=== PATIENT | female | born 1960 | race Caucasian/White ===

== ENCOUNTER → 2016-12-29 | Outpatient (CLI) | payer MEDICARE, MEDICAID ==
[~2016-12-29] MED LIST: /ADVA50050; /ADVA50050 INH; /MOXI40TA; /MOXI40TA OR; /PANT40TA; /TIOT18INH; /TIOT18INH INH; /WARF25TA PO; ACET65TA; ACET65TA OR; ALBU83IN IN; ALBUTEROL INH; ASPI325T OR; ATOR1TAB21 PO; CARD120T6 OR; CHAN0.5P6 PO; DEXI60CA PO; DULO30CA PO; EFFE150C PO; EFFE75CA75; GUAIFENESIN SYRUP; HYDR-3713 PO; HYDR7.5T33 PO; LIDO5DIS TD; LIPI20TA OR; LOPR50TA OR; LOPR50TA PO; LYRI75CA PO; METH-107 PO; METH5TAB2; METH5TAB2 PO; NEUR300C PO; NEUR800T; NEUR800T OR; NEUR800T PO; PAXI10TA OR; PENN1.5S2 TD; PRED10TA2; PRED10TA2 OR; PRED20TA; PRED20TA OR; PRED5TAB OR; PROAAER INH; PROV90AE; THERGRAN; TOPI25TA2 PO; TOPI50TA OR; TRAM50TA2 OR; TRAM50TA2 PO; TYLE325T5 PO; VARE1TA; VENL75TA2 OR; WELL150T PO; oxygen
--- NOTE | 2016-12-31 00:21 | ECWPNPC ---
PATIENT NAME: ARTHUR ALSTON : 1960 GENDER: FEMALE VISIT DATE: 12/29/2016 DISCHARGE DATE: 12/29/16 1126 VISIT LOCKED DATE TIME: PHYSICIAN: AMAN MENDOZA RESOURCE: AMAN MENDOZA REASON FOR APPOINTMENT 1. NECK HISTORY OF PRESENT ILLNESS HISTORY OF PRESENT ILLNESS: PAIN THE PATIENT DESCRIBES THE PAIN... FALL RISK SCREENING: SCREENING :NO FALLS IN THE PAST YEAR TODAY'S VISIT: NOTES: RATES PAIN TODAY 8/10. IS NOTING NEW PAIN TODAY IN LOW BACK BUT THIS STARTED AFTER A 1 WEEK BOUGHT OF THE FLU. CONTINUES TO REPORT USUAL PAIN FROM BASE OF NECK TO SHOULDERS AND DOWN BOTH ARMS TO THE FINGERS. DESCRIBES PAIN CONSTANT, ACHING, BURNING, TENDER AND THROBBING. CURRENT MEDICATIONS TAKING [facility] TEST 1 INHALATION DAILY, NOTES: [id number] TAKING ADVAIR DISKUS 500-50 MCG/DOSE AEROSOL POWDER BREATH ACTIVATED 1 PUFF INHALATION TWICE A DAY, NOTES: 07-21-16599 TAKING DEXILANT 60 MG CAPSULE DELAYED RELEASE 1 CAPSULE ORALLY ONCE A DAY, NOTES: 07-21-16599 TAKING PRIMIDONE 50 MG TABLET ORALLY TWICE DAILY, NOTES: 07-20-162099 TAKING TOPAMAX 50 MG TABLET 1 1/2 TABLETS ORALLY TWICE A DAY, NOTES: 07-21-16599 TAKING PAXIL 20 MG TABLET 1 TABLET ORALLY ONCE A DAY, NOTES: 07-20-162099 TAKING DULOXETINE HCL 60 MG CAP 1 CAP(S) ORALLY ONCE A DAY TAKING GABAPENTIN 400 MG CAPSULE 1 CAPSULE ORALLY THREE TIMES A DAY, NOTES: 07-21-161199 TAKING TRAMADOL HCL 50 MG TABLET 1 -2 TABLETS ORALLY EVERY 8 HRS PRN PAIN MDD=6 TAKING LIPITOR 20 MG TABLET 1 TABLET ORALLY ONCE A DAY MEDICATION LIST REVIEWED AND RECONCILED WITH THE PATIENT PAST MEDICAL HISTORY COPD CHRONIC OBSTRUCTIVE BRONCHITIS, EMPHYSEMA, DR TREJO CHRONIC O2 3 LPM- TORIN ON 11/09/14 SHOWED FEV1/FVC 58% CHRONIC NECK PAIN - PAIN CLINIC DEPRESSION HYPERLIPIDEMIA HYPERTENSION, 07/05 EKG NSR GERD STRESS URINARY INCONTINENCE H/O ABN MAMMO 07/06, BX 09/05 NEG, AGUERO DUE FOR REPEAT MAMMO EMANUEL DEP 08/02 ECHO, NL EXCEPT MILD RVH ALLERGIES N.K.D.A. SOCIAL HISTORY GENERAL: TOBACCO USE ARE YOU A:NONSMOKER LEARNING 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 NEW PATIENT PAIN DIARY TODAY'S VISITNOTES FROM 0-10, WHAT LEVEL IS YOUR PAIN TODAY?0 PAIN CLINIC PFS, CLERGY, PUBLIC HEALTH REFERRALS PFS REFERRAL NEEDED?NO CLERGY REFERRAL NEEDED?NO PUBLIC HEALTH REFERRAL NEEDED?NO WAS THE PROVIDER NOTIFIED OF ANY PERTINENT INFO?NO PFS REFERRAL NEEDED?NO CLERGY REFERRAL NEEDED?NO PUBLIC HEALTH REFERRAL NEEDED?NO WAS THE PROVIDER NOTIFIED OF ANY PERTINENT INFO?NO REVIEW OF SYSTEMS CONSTITUTIONAL: ANY CHANGE IN YOUR MEDICAL CONDITION? YES PT HAD THE FLU MID NOVEMBER, SYMPTOMS NOW RESOLVED . CHILLS NO . FEVER NO . INFECTION: DO YOU HAVE NEW INFECTIONS? NO . DO YOU HAVE HISTORY OF MRSA? NO . MUSCULOSKELETAL: ANY NEW PATTERNS OF PAIN OR NUMBNESS? YES PT REPORTS INCREASED INTENSITY OF LOW BACK PAIN STARTING ABOUT TWO WEEKS AGO. PT STATES SHE HAD THE FLU PRIOR TO THIS, AND IT RESOLVED, HER BACK PAIN INCREASED. . GASTROENTEROLOGY: ANY NEW CHANGE IN BOWEL CONTROL? NO . GENITOURINARY: ANY NEW CHANGE IN BLADDER CONTROL? NO . IS THERE A CHANCE YOU COULD BE ? NO . HEMATOLOGY/LYMPH: DO YOU TAKE ANY BLOOD THINNERS? (FOR EXAMPLE- COUMADIN, PLAVIX, AGGRENOX, PLATEL, PRADAXA, OR XARELTO) NO . WHEN WAS YOUR LAST DOSE? DATE: TIME: . NEUROLOGY: HAVE YOU FALLEN IN THE PAST 6 MONTHS? NO . ANY NEW EXTREMITY NUMBNESS OR WEAKNESS? NO . CARDIOLOGY: DO YOU HAVE A PACEMAKER OR DEFIBRILLATOR? NO . RESPIRATORY: HAVE YOU BEEN SICK IN THE PAST WEEK? NO . FEVER NO . FLU LIKE SYMPTOMS? NO . CHRONIC LUNG DISEASES ON CONSTANT O2 AT 3-4 LITERS NASAL CANNULA . COUGH NO . INTEGUMENTARY: DO YOU HAVE ANY RASHES OR OPEN SORES? NO . ALLERGIC/IMMUNO: ARE YOU ALLERGIC TO SHELLFISH OR IV DYE? NO . ANY NEW ALLERGIES? NO . PSYCHIATRIC: DO YOU HAVE THOUGHTS OF HURTING YOURSELF OR SOMEONE ELSE? NO . ARE YOU ABUSED, NEGLECTED, OR IN AN UNSAFE ENVIRONMENT? NO . ENDOCRINOLOGY: ARE YOU DIABETIC? NO . OTHER: DO YOU NEED ANY PRESCRIPTIONS? NO . IF YES, PLEASE LIST: ____ . ANY NEW PROBLEMS WITH YOUR MEDICATIONS? NO . WHEN DID YOU LAST EAT? ____ . WHEN DID YOU LAST DRINK? ____ . WHAT DID YOU LAST DRINK? ____ . NAME OF PERSON DRIVING YOU HOME? ____ . DO YOU HAVE ANY OTHER QUESTIONS OR CONCERNS NO . REVIEWED BY: PROVIDER: AMAN VALADEZ . VITAL SIGNS WT 152.4 LBS, HT 64", BMI 26.16 INDEX, BP 112/67 MM HG, HR 115 /MIN, RR 20 /MIN, TEMP 96.8 F, OXYGEN SAT % 3L/93%, SAFE IN ENV? (Y/N) YES, NA INITIALS TL 1051, REVIEWED BY: VI GRADY, CISCO Burrows AWARE- TL. EXAMINATION PAIN CLINIC NEUROLOGICAL EXAM: OTHER SENSATION HYPERSENSITIVENO REFLEXES PATELLARYES 4/4 W/CLONUS RIGHT, 2/4 LEFT - NO CLONUS REFLEXES BICEPSYES 3/4 RIGHT, 2/4 LEFT REFLEXES BRACHIORADIALISYES REFLEXES ACHILLESYES CLONUS PLANTAR RESPONSE SENSATION DECEASEDNO RIGHT UPPER EXTREMITY BALANCE/ROMBERG SENSATION NORMALNO SKIN: WARM, DRY, NO VISIBLE RASHES OR LESIONS. CARDIAC: HEART RATE REGULAR, S1-S2, NO MURMURS. RESPIRATORY: WHEEZES, RALES, RONCHI HEARD SCATTERED IN ALL LOBES. EXTREMITIES: NO EDEMA. FULL ROM. ASSESSMENTS CERVICAL DISC DISORDER OF CERVICOTHORACIC REGION - M50.93 (PRIMARY) CERVICAL DISC DISORDER WITH RADICULOPATHY OF CERVICOTHORACIC REGION - M50.13 DEGENERATIVE CERVICAL DISC - M50.30 TREATMENT CERVICAL DISC DISORDER OF CERVICOTHORACIC REGION START GABAPENTIN TABLET, 600 MG, 1 TABLET, ORALLY, THREE TIMES A DAY, 30 DAY(S), 90, REFILLS 5 NOTES: FALLS CARE PLAN: 1. RECOMMEND REMOVING ALL THROW RUGS. 2. RECOMMEND NIGHT LIGHTS 3. RECOMMEND WEARING RUBBER SOLED SHOES AND TO NOT GO BAREFOOT. 4.. ADVISED TO CHANGE POSITION SLOWLY FROM SUPINE TO STANDING TO AVOID DIZZINESS. 5. ADVISED TO USE ASSISTIVE DEVICE SUCH CANE OR WALKER 6. USE LIFELINE SERVICES OR KEEP PORTABLE PHONE READILY AVAILABLE. CLINICAL NOTES: ISTOP REGISTRY REVIEWED AND DEMNOSTRATES COMPLLIANCE. BRINGS IN MEDICATIONS WHICH IS APPROPRIATE FOR WHAT WAS DISPENSED. RECENT URINE TOXICOLOGY REVIEWED. NO UNAUTHORIZED MEDICATIONS. NO ILLICIT SUBSTANCES AND PRESCRIBED MEDICATIONS WERE PRESENT. PROCEDURE CODES FA211 ESTABILISHED PATIENT [facility] CHARGE G8783 BP SCR PRFRM RCMDD DEFIND SCR INTVL G8730 PAIN ASSESS POS TOOL F/U PLAN DOC 3016F PT SCRND UNHLTHY [place] USE 1124F ACP DISCUSS-NO DSCNMKR DOCD 1036F TOBACCO NON-USER 0518F FALL PLAN OF CARE DOCD G8427 DOC MEDS VERIFIED W/PT OR RE G8420 BMI<30 AND >=22 CALC & DOCU 3288F FALL RISK ASSESSMENT DOCD DISPOSITION & COMMUNICATION FOLLOW UP 3 MONTHS ELECTRONICALLY SIGNED BY LINN CRUZ ON 12/30/2016 AT 06:44 PM EST DISCLAIMER : THIS IS A VISIT SUMMARY EXTRACTED FROM THE [employer] CHART. IT IS NOT A COPY OF THE [employer] PROGRESS NOTE. MTDD
== END ==
LOC: M PAIN 10:20
PROVIDERS: ATTEND Nurse Practitioner Family
DX: Z09 Encounter for follow-up examination after completed treatment for conditions other than malignant neoplasm (principal); G89.29 Other chronic pain; M50.13 Cervical disc disorder with radiculopathy, cervicothoracic region; M50.30 Other cervical disc degeneration, unspecified cervical region; J44.9 Chronic obstructive pulmonary disease, unspecified; F32.9 Major depressive disorder, single episode, unspecified; E78.5 Hyperlipidemia, unspecified; I10 Essential (primary) hypertension; K21.9 Gastro-esophageal reflux disease without esophagitis; N39.3 Stress incontinence (female) (male); Z79.51 Long term (current) use of inhaled steroids; Z79.891 Long term (current) use of opiate analgesic; Z79.899 Other long term (current) drug therapy

== ENCOUNTER → 2017-03-31 | Outpatient (CLI) | payer MEDICARE, MEDICAID ==
[~2017-03-31] MED LIST changes: +ALBU83IN INH; -DEXI60CA PO; +DEXI60CA2 PO; +GABA-283 PO; +INCR1INH IN; -METH-107 PO; +METH1TAB40 PO; +OXYC1SOL3 PO; +PAXI40TA10 PO
--- NOTE | 2017-04-20 02:19 | ECWPNPC ---
PATIENT NAME: ARTHUR ALSTON : 1960 GENDER: FEMALE VISIT DATE: 03/31/2017 DISCHARGE DATE: 03/31/17 1131 VISIT LOCKED DATE TIME: PHYSICIAN: AMAN MENDOZA RESOURCE: AMAN MENDOZA REASON FOR APPOINTMENT 1. NECK HISTORY OF PRESENT ILLNESS HISTORY OF PRESENT ILLNESS: PAIN THE PATIENT DESCRIBES THE PAIN... FALL RISK SCREENING: SCREENING :NO FALLS IN THE PAST YEAR TODAY'S VISIT: NOTES: IS HAVING MORE TROUBLE MANAGING NECK PAIN. IS HAVING TROUBLE WITH "TWITCHING" AND WILL BE SEEING DR CLAYTON. AINRADIATES DOWN BOTH ARMS. DOES NOT WISH TO DO ANY INJECTIONS TO THE AREA.RATES PAIN TODAY 7/10. DESCRIBES PAIN CONSTANT, BURNING, ACHING, TENDER , THROBBING AND SORE. CURRENT MEDICATIONS TAKING [facility] TEST 1 INHALATION DAILY TAKING ADVAIR DISKUS 500-50 MCG/DOSE AEROSOL POWDER BREATH ACTIVATED 1 PUFF INHALATION TWICE A DAY TAKING DEXILANT 60 MG CAPSULE DELAYED RELEASE 1 CAPSULE ORALLY ONCE A DAY TAKING PRIMIDONE 50 MG TABLET ORALLY TWICE DAILY TAKING TOPAMAX 50 MG TABLET 1 1/2 TABLETS ORALLY TWICE A DAY TAKING GABAPENTIN 400 MG CAPSULE 1 CAPSULE ORALLY THREE TIMES A DAY TAKING GABAPENTIN 600 MG TABLET 1 TABLET ORALLY THREE TIMES A DAY TAKING PAXIL 20 MG TABLET 1 TABLET IN THE MORNING ORALLY ONCE A DAY TAKING LIPITOR 20 MG TABLET 1 TABLET ORALLY ONCE A DAY TAKING DULOXETINE HCL 60 MG CAP 1 CAP(S) ORALLY ONCE A DAY TAKING TRAMADOL HCL 50 MG TABLET 1 -2 TABLETS ORALLY EVERY 8 HRS PRN PAIN MDD=6 MEDICATION LIST REVIEWED AND RECONCILED WITH THE PATIENT PAST MEDICAL HISTORY COPD CHRONIC OBSTRUCTIVE BRONCHITIS, EMPHYSEMA, DR TREJO CHRONIC O2 3 LPM- TORIN ON 11/09/14 SHOWED FEV1/FVC 58% CHRONIC NECK PAIN - PAIN CLINIC DEPRESSION HYPERLIPIDEMIA HYPERTENSION, 07/05 EKG NSR GERD STRESS URINARY INCONTINENCE H/O ABN MAMMO 07/06, BX 09/05 NEG, AGUERO DUE FOR REPEAT MAMMO EMANUEL DEP 08/02 ECHO, NL EXCEPT MILD RVH ALLERGIES N.K.D.A. REVIEW OF SYSTEMS REVIEWED BY: PROVIDER: AMAN VALADEZ . CONSTITUTIONAL: ANY CHANGE IN YOUR MEDICAL CONDITION? NO . CHILLS NO . FEVER NO . INFECTION: DO YOU HAVE NEW INFECTIONS? NO . DO YOU HAVE HISTORY OF MRSA? NO . MUSCULOSKELETAL: ANY NEW PATTERNS OF PAIN OR NUMBNESS? NO . GASTROENTEROLOGY: ANY NEW CHANGE IN BOWEL CONTROL? NO . GENITOURINARY: ANY NEW CHANGE IN BLADDER CONTROL? NO . IS THERE A CHANCE YOU COULD BE ? NO . HEMATOLOGY/LYMPH: DO YOU TAKE ANY BLOOD THINNERS? (FOR EXAMPLE- COUMADIN, PLAVIX, AGGRENOX, PLATEL, PRADAXA, OR XARELTO) NO . WHEN WAS YOUR LAST DOSE? DATE: TIME: . NEUROLOGY: HAVE YOU FALLEN IN THE PAST 6 MONTHS? NO . ANY NEW EXTREMITY NUMBNESS OR WEAKNESS? NO . CARDIOLOGY: DO YOU HAVE A PACEMAKER OR DEFIBRILLATOR? NO . CHEST PAIN PATIENT DENIES . RESPIRATORY: HAVE YOU BEEN SICK IN THE PAST WEEK? NO . FEVER NO . FLU LIKE SYMPTOMS? NO . CHRONIC LUNG DISEASES REMAINS ON CHRONIC OXYGEN AT 3L/NC . DO YOU USE ANY TYPE OF TOBACCO (SMOKE, SMOKELESS, CHEW)? NO . COUGH NO . INTEGUMENTARY: DO YOU HAVE ANY RASHES OR OPEN SORES? NO . ALLERGIC/IMMUNO: ARE YOU ALLERGIC TO SHELLFISH OR IV DYE? NO . ANY NEW ALLERGIES? NO . PSYCHIATRIC: DO YOU HAVE THOUGHTS OF HURTING YOURSELF OR SOMEONE ELSE? NO . ARE YOU ABUSED, NEGLECTED, OR IN AN UNSAFE ENVIRONMENT? NO . ENDOCRINOLOGY: ARE YOU DIABETIC? NO . OTHER: DO YOU NEED ANY PRESCRIPTIONS? NO . IF YES, PLEASE LIST: ____ . ANY NEW PROBLEMS WITH YOUR MEDICATIONS? NO . WHEN DID YOU LAST EAT? ____ . WHEN DID YOU LAST DRINK? ____ . WHAT DID YOU LAST DRINK? ____ . NAME OF PERSON DRIVING YOU HOME? ____ . DO YOU HAVE ANY OTHER QUESTIONS OR CONCERNS NO . VITAL SIGNS WT 158 LBS, HT 64", BMI 27.12 INDEX, BP 111/74 MM HG, HR 89 /MIN, RR 20 /MIN, TEMP 97.2 F, OXYGEN SAT % 95, REVIEWED BY: NL. EXAMINATION GENERAL EXAMINATION: GENERAL APPEARANCE:COLOR IS PALE. OXYGEN IN PLACE. PSYCHALERT , ORIENTED X 3 . LUNGS:NO WHEEZES, RHONCHI, RALES, DECREASED AIRFLOW, DYPSNEIC ON EXERTION. HEART:HEART RATE REGULAR, RAPID. MUSCULOSKELETAL:DECREASED CERVICAL ROTATION, TRIGGER POINTS AND TIGHT FIBROUS BANDS OVER CERVICAL PARAPSINOUS MUSCLES AND ACROSS TRAPEZIUS MUSCLES. DECREASED CLIENT DEVELOPMENT CONSULTANT STRENGTH BILATERAL UPPER EXTREMITIES.. EXTREMITIES:TRACE EDEMA BILATERAL LOWER EXTREMITIES. ASSESSMENTS CERVICAL DISC DISORDER OF CERVICOTHORACIC REGION - M50.93 (PRIMARY) CERVICAL DISC DISORDER WITH RADICULOPATHY OF CERVICOTHORACIC REGION - M50.13 DEGENERATIVE CERVICAL DISC - M50.30 TREATMENT CERVICAL DISC DISORDER OF CERVICOTHORACIC REGION START OXYCODONE HCL TABLET, 5 MG, 1 TABLET, ORALLY, EVERY 8-12 HOURS PRN PAIN MDD=2, 30 DAY(S), 60, REFILLS 0 NOTES: STOP TRAMADOL.UPDATE NARCOTIC AGREEMENT TODAY. PROCEDURE CODES FA211 ESTABILISHED PATIENT [facility] CHARGE G8730 PAIN ASSESS POS TOOL F/U PLAN DOC G8427 DOC MEDS VERIFIED W/PT OR RE DISPOSITION & COMMUNICATION FOLLOW UP 26-28 DAYS (REASON: MED MANAGEMENT) ELECTRONICALLY SIGNED BY LINN CRUZ ON 04/19/2017 AT 01:27 PM EDT DISCLAIMER : THIS IS A VISIT SUMMARY EXTRACTED FROM THE [employer] CHART. IT IS NOT A COPY OF THE [employer] PROGRESS NOTE. ELVIA
== END ==
LOC: M PAIN 10:40
PROVIDERS: ATTEND Nurse Practitioner Family
DX: M50.13 Cervical disc disorder with radiculopathy, cervicothoracic region (principal); M50.30 Other cervical disc degeneration, unspecified cervical region; Z79.891 Long term (current) use of opiate analgesic; Z79.899 Other long term (current) drug therapy

== ENCOUNTER → 2017-04-04 | Outpatient (CLI) | payer MEDICARE, MEDICAID ==
[~2017-04-04] MED LIST changes: -ALBU83IN INH; +DEXI60CA PO; -DEXI60CA2 PO; -GABA-283 PO; -INCR1INH IN; +METH-107 PO; -METH1TAB40 PO; -OXYC1SOL3 PO; -PAXI40TA10 PO
--- NOTE | 2017-04-04 15:55 | REP ---
CHEST, TWO VIEWS: HISTORY: COPD. COMPARISON: 07/14/2013. The lungs are hyperinflated. An increase in interstitial markings is present in the lungs. The heart is normal in size. The pulmonary vasculature is normal in appearance. The bony structure is intact. IMPRESSION: COPD. Signed by Rad Haley MD 04/04/2017 04:03 P
== END ==
LOC: M ADAMS 13:15
PROVIDERS: ATTEND Internal Medicine Pulmonary Disease
DX: J44.1 Chronic obstructive pulmonary disease with (acute) exacerbation (principal)

== ENCOUNTER → 2017-06-29 | Outpatient (REF) | payer MEDICARE, MEDICAID ==
[~2017-06-29] MED LIST changes: +ALBU83IN INH; -DEXI60CA PO; +DEXI60CA2 PO; +GABA-283 PO; +INCR1INH IN; -METH-107 PO; +METH1TAB40 PO; +OXYC1SOL3 PO; +PAXI40TA10 PO
[2017-06-29 14:36] LABS: BASO % 0.6 % (0.0-1.0); EOS # 0.2 K/mm3 (0.0-0.50); EOS % 2.4 % (0.0-3.0); LARGE UNSTAINED CELL # 0.1 K/mm3 (0.0-0.4); LARGE UNSTAINED CELL % 1.5 % (0.0-4.0); LYMPH % 28.6 % (24.0-44.0); MEAN CORPUSCULAR HEMOGLOBIN 27.4 pg (27.0-33.0); MEAN CORPUSCULAR HGB CONC 30.9 g/dl (32.0-36.5); MEAN CORPUSCULAR VOLUME 88.8 fl (80.0-96.0); MONO # 0.3 K/mm3 (0.0-0.8); NEUTROPHILS # 4.2 K/mm3 (1.8-7.7); PLATELET COUNT, AUTOMATED 258 k/mm3 (150-450); RED CELL DISTRIBUTION WIDTH 14.4 % (11.5-14.5); WHITE BLOOD COUNT 6.8 K/mm3 (4.0-10.0)
[2017-06-29 14:48] LABS: ALBUMIN 3.7 GM/DL (3.2-5.2); ALBUMIN/GLOBULIN RATIO 1.03 (1.00-1.93); ALKALINE PHOSPHATASE 111 U/L (45-117); ALT/SGPT 18 U/L (12-78); ANION GAP 12 MEQ/L (8-16); AST/SGOT 15 U/L (15-37); BILIRUBIN,TOTAL 0.3 MG/DL (0.2-1.0); BLOOD UREA NITROGEN 15 MG/DL (7-18); CALCIUM LEVEL 8.8 MG/DL (8.5-10.1); CARBON DIOXIDE LEVEL 27 MEQ/L (21-32); CHLORIDE LEVEL 105 MEQ/L (98-107); CHOLESTEROL LEVEL 179 MG/DL (<200); CREATININE FOR GFR 0.79 MG/DL (0.55-1.02); GLOMERULAR FILTRATION RATE > 60.0 (>51); GLUCOSE, FASTING 83 MG/DL (70-105); POTASSIUM SERUM 4.2 MEQ/L (3.5-5.1); SODIUM LEVEL 144 MEQ/L (136-145); TOTAL PROTEIN 7.3 GM/DL (6.4-8.2); TRIGLYCERIDES LEVEL 98 MG/DL (<150)
== END ==
LOC: M SFHCADAM 11:22
PROVIDERS: ATTEND Physician Assistant Medical
DX: R07.9 Chest pain, unspecified (principal); E78.4 Other hyperlipidemia; M54.2 Cervicalgia; I10 Essential (primary) hypertension; F32.9 Major depressive disorder, single episode, unspecified; J44.9 Chronic obstructive pulmonary disease, unspecified; J96.11 Chronic respiratory failure with hypoxia; K21.9 Gastro-esophageal reflux disease without esophagitis; F17.200 Nicotine dependence, unspecified, uncomplicated; R92.0 Mammographic microcalcification found on diagnostic imaging of breast; Z23 Encounter for immunization; Z79.891 Long term (current) use of opiate analgesic; Z79.899 Other long term (current) drug therapy
CPT/HCPCS: 80053; 80061; 82306; 83036; 84443; 85025; 90732; 93005; G0009

== ENCOUNTER → 2017-07-14 | Outpatient (CLI) | payer MEDICARE, MEDICAID ==
--- NOTE | 2017-08-12 01:01 | ECWPNPC ---
PATIENT NAME: ARTHUR ALSTON : 1960 GENDER: FEMALE VISIT DATE: 07/14/2017 DISCHARGE DATE: 07/14/17 1642 VISIT LOCKED DATE TIME: PHYSICIAN: AMAN MENDOZA RESOURCE: AMAN MENDOZA REASON FOR APPOINTMENT 1. NECK HISTORY OF PRESENT ILLNESS HISTORY OF PRESENT ILLNESS: PAIN THE PATIENT DESCRIBES THE PAIN... FALL RISK SCREENING: SCREENING :NO FALLS IN THE PAST YEAR TODAY'S VISIT: NOTES: RATES PAIN LEVEL TODAY 05/01. DESCRIBES PAIN CONSTANT, ACHING, BURNING TENDER, THROBBING AND SORE. PAIN IS CENERED AT BASE OF NECK AND RADIATES ACROSS THE SHOULDERS AND DOWN BITH ARMS TO THE LEVEL OF THE WRISTS. CURRENT MEDICATIONS TAKING ADVAIR DISKUS 500-50 MCG/DOSE AEROSOL POWDER BREATH ACTIVATED 1 PUFF INHALATION TWICE A DAY TAKING DEXILANT 60 MG CAPSULE DELAYED RELEASE 1 CAPSULE ORALLY ONCE A DAY TAKING TOPAMAX 50 MG TABLET 1 1/2 TABLETS ORALLY TWICE A DAY TAKING GABAPENTIN 600 MG TABLET 1 TABLET ORALLY THREE TIMES A DAY TAKING DULOXETINE HCL 60 MG CAP 1 CAP(S) ORALLY ONCE A DAY TAKING OXYCODONE HCL 5 MG TABLET 1 TABLET ORALLY EVERY 8-12 HOURS PRN PAIN MDD=2 TAKING PAXIL 40 MG TABLET 1 TABLET IN THE MORNING ORALLY ONCE A DAY TAKING DRISDOL 00213 UNIT CAPSULE 1 CAPSULE ORALLY ONCE WEEKLY TAKING ALBUTEROL SULFATE 0.63 MG/3ML NEBULIZATION SOLUTION 3 ML NEEDED INHALATION EVERY 6 HRS NOT-TAKING LIPITOR 20 MG TABLET 1 TABLET ORALLY ONCE A DAY DISCONTINUED TRAMADOL HCL 50 MG TABLET 1 -2 TABLETS ORALLY EVERY 8 HRS PRN PAIN MDD=6 DISCONTINUED PAXIL 20 MG TABLET 1 TABLET IN THE MORNING ORALLY ONCE A DAY MEDICATION LIST REVIEWED AND RECONCILED WITH THE PATIENT PAST MEDICAL HISTORY COPD CHRONIC OBSTRUCTIVE BRONCHITIS, EMPHYSEMA, DR TREJO CHRONIC O2 3 LPM CHRONIC NECK PAIN - PAIN CLINIC DEPRESSION HYPERLIPIDEMIA HYPERTENSION, 07/05 EKG NSR GERD STRESS URINARY INCONTINENCE H/O ABN MAMMO 07/06, BX 09/05 NEG, AGUERO DUE FOR REPEAT MAMMO EMANUEL DEP 08/02 ECHO, NL EXCEPT MILD RVH PINEAL CYST- NEURO, MRI 05/08 WITHOUT CHANGE. 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 SOCIAL HISTORY GENERAL: TOBACCO USE ARE YOU A:CURRENT SMOKER TRYING TO QUIT, TO SPEAK WITH HER PRIMARY ABOUT STARTING CHANTIX HOW MANY CIGARETTES A DAY DO YOU SMOKE?6-10 HOW SOON AFTER YOU WAKE UP DO YOU SMOKE YOUR FIRST CIGARETTE?6-30 MIN HOW OFTEN DO YOU SMOKE CIGARETTES?EVERY DAY PATIENT COUNSELED ON THE DANGERS OF TOBACCO USE AND URGED TO QUIT:07/14/2017 ARE YOU INTERESTED IN QUITTING?READY TO QUIT PREVIOUS QUIT ATTEMPTS?YES, WITHIN THE LAST 6 MONTHS. COUNSELED THE PATIENT ON TOBACCO USE, CESSATION [id number]/22/2017 LUNG CANCER SCREENING SMOKING STATUS:CURRENT SMOKER BMI CARE GOAL FOLLOW-UP ABOVE NORMAL BMI FOLLOW-UPDIETARY MANAGEMENT EDUCATION, GUIDANCE, AND COUNSELING ALCOHOL SCREENING DID YOU HAVE A DRINK CONTAINING ALCOHOL IN THE PAST YEAR?YES HOW OFTEN DID YOU HAVE A DRINK CONTAINING ALCOHOL IN THE PAST YEAR?MONTHLY OR LESS (1 POINT) HOW MANY DRINKS DID YOU HAVE ON A TYPICAL DAY WHEN YOU WERE DRINKING IN THE PAST YEAR?1 OR 2 (0 POINTS) HOW OFTEN DID YOU HAVE SIX OR MORE DRINKS ON ONE OCCASION IN THE PAST YEAR?NEVER (0 POINTS) POINTS1 INTERPRETATIONNEGATIVE RECREATIONAL DRUG USE DRUG USE?NO CAFFEINE CAFFEINE USE?YES COFFEE DAILY SEXUAL HX HAD SEX IN THE LAST 12 MONTHS (VAGINAL, ORAL, OR ANAL)?NO HIV / HEP-C SCREENING HIV TEST OFFERED TO PATIENT:YES DATE OFFERED:06/29/2017 TEST ACCEPTED:NO REASON:PATIENT DECLINED HEP-C TEST OFFERED TO PATIENT:YES DATE OFFERED:06/29/2017 TEST ACCEPTED:NO REASON:PATIENT DECLINED OCCUPATION: DISABLED. DIET: REGULAR. EXERCISE: NO REGULAR EXERCISE. MARITAL STATUS: . 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 NEW PATIENT PAIN DIARY TODAY'S VISITNOTES FROM 0-10, WHAT LEVEL IS YOUR PAIN TODAY?0 PAIN CLINIC PFS, CLERGY, PUBLIC HEALTH REFERRALS PFS REFERRAL NEEDED?NO CLERGY REFERRAL NEEDED?NO PUBLIC HEALTH REFERRAL NEEDED?NO WAS THE PROVIDER NOTIFIED OF ANY PERTINENT INFO?NO HAS THE PATIENT BEEN EDUCATED REGARDING HIS/HER PLAN OF CARE?YES HAS THE PATIENT BEEN EDUCATED REGARDING PAIN, THE RISK FOR PAIN, THE IMPORTANCE OF EFFECTIVE PAIN MANAGEMENT, AND THE PAIN ASSESSMENT PROCESS?YES REVIEW OF SYSTEMS REVIEWED BY: PROVIDER: AMAN VALADEZ . CONSTITUTIONAL: ANY CHANGE IN YOUR MEDICAL CONDITION? NO . CHILLS NO . FEVER NO . INFECTION: DO YOU HAVE NEW INFECTIONS? NO . DO YOU HAVE HISTORY OF MRSA? NO . MUSCULOSKELETAL: ANY NEW PATTERNS OF PAIN OR NUMBNESS? NO . GASTROENTEROLOGY: ANY NEW CHANGE IN BOWEL CONTROL? NO . GENITOURINARY: ANY NEW CHANGE IN BLADDER CONTROL? NO . IS THERE A CHANCE YOU COULD BE ? NO . HEMATOLOGY/LYMPH: DO YOU TAKE ANY BLOOD THINNERS? (FOR EXAMPLE- COUMADIN, PLAVIX, AGGRENOX, PLATEL, PRADAXA, OR XARELTO) NO . WHEN WAS YOUR LAST DOSE? DATE: TIME: . NEUROLOGY: HAVE YOU FALLEN IN THE PAST 6 MONTHS? NO . ANY NEW EXTREMITY NUMBNESS OR WEAKNESS? NO . CARDIOLOGY: DO YOU HAVE A PACEMAKER OR DEFIBRILLATOR? NO . RESPIRATORY: HAVE YOU BEEN SICK IN THE PAST WEEK? NO . FEVER NO . FLU LIKE SYMPTOMS? NO . CHRONIC LUNG DISEASES SIG COPD - REMAINS ON CONTINIOUS OXYGEN AT 3L/NC . COUGH NO . INTEGUMENTARY: DO YOU HAVE ANY RASHES OR OPEN SORES? NO . ALLERGIC/IMMUNO: ARE YOU ALLERGIC TO SHELLFISH OR IV DYE? NO . ANY NEW ALLERGIES? NO . PSYCHIATRIC: DO YOU HAVE THOUGHTS OF HURTING YOURSELF OR SOMEONE ELSE? NO . ARE YOU ABUSED, NEGLECTED, OR IN AN UNSAFE ENVIRONMENT? NO . ENDOCRINOLOGY: ARE YOU DIABETIC? NO . OTHER: DO YOU NEED ANY PRESCRIPTIONS? YES . IF YES, PLEASE LIST: ____GABAPENTIN 600 MG, OXYCODONE . ANY NEW PROBLEMS WITH YOUR MEDICATIONS? NO . WHEN DID YOU LAST EAT? ____ . WHEN DID YOU LAST DRINK? ____ . WHAT DID YOU LAST DRINK? ____ . NAME OF PERSON DRIVING YOU HOME? ____ . DO YOU HAVE ANY OTHER QUESTIONS OR CONCERNS NO . VITAL SIGNS WT 150.8 LBS, HT 64", BMI 25.88 INDEX, BP 106/66 MM HG, HR 95 /MIN, RR 18 /MIN, TEMP 98.4 F, OXYGEN SAT % 95%, NA INITIALS CM 1538. EXAMINATION GENERAL EXAMINATION: PSYCHALERT , ORIENTED X 3 . LUNGS:DECREASED AIR ENTRY AT BASES, NO WHEEZES RALES OR RHONCHI. SHORT OF BREATH WITH EXERTION. MUSCULOSKELETAL:VERY LIMITIED ROM OF NECK WITH FLEXION, EXT AND ROTATION. EXQ TENDERNESS OVER POTTERY DECORATOR . ASSESSMENTS CERVICAL DISC DISORDER OF CERVICOTHORACIC REGION - M50.93 (PRIMARY) CERVICAL DISC DISORDER WITH RADICULOPATHY OF CERVICOTHORACIC REGION - M50.13 CERVICALGIA - M54.2 TREATMENT CERVICAL DISC DISORDER OF CERVICOTHORACIC REGION REFILL OXYCODONE HCL TABLET, 5 MG, 1 TABLET, ORALLY, EVERY 8-12 HOURS PRN PAIN MDD=2, 30 DAY(S), 60, REFILLS 0 REFILL GABAPENTIN TABLET, 600 MG, 1 TABLET, ORALLY, THREE TIMES A DAY, 30 DAY(S), 90, REFILLS 5 NOTES: UTOX TODAY. CLINICAL NOTES: ISTOP REGISTRY REVIEWED AND DEMNOSTRATES COMPLLIANCE. (REF # [id number]) BRINGS IN MEDICATIONS WHICH IS APPROPRIATE FOR WHAT WAS DISPENSED. RECENT URINE TOXICOLOGY REVIEWED. NO UNAUTHORIZED MEDICATIONS. NO ILLICIT SUBSTANCES AND PRESCRIBED MEDICATIONS WERE PRESENT. PROCEDURE CODES FA211 ESTABILISHED PATIENT [facility] CHARGE DISPOSITION & COMMUNICATION FOLLOW UP 7 WEEKS (REASON: NECK PAIN) ELECTRONICALLY SIGNED BY LINN CRUZ ON 08/11/2017 AT 09:03 AM EDT DISCLAIMER : THIS IS A VISIT SUMMARY EXTRACTED FROM THE [employer] CHART. IT IS NOT A COPY OF THE [employer] PROGRESS NOTE. ELVIA
== END ==
LOC: M PAIN 14:45
PROVIDERS: ATTEND Nurse Practitioner Family
DX: G89.29 Other chronic pain (principal); M50.13 Cervical disc disorder with radiculopathy, cervicothoracic region; J44.9 Chronic obstructive pulmonary disease, unspecified; E78.4 Other hyperlipidemia; I10 Essential (primary) hypertension; F32.9 Major depressive disorder, single episode, unspecified; K21.9 Gastro-esophageal reflux disease without esophagitis; F17.210 Nicotine dependence, cigarettes, uncomplicated; E55.9 Vitamin D deficiency, unspecified; Z79.891 Long term (current) use of opiate analgesic; Z79.899 Other long term (current) drug therapy

== ENCOUNTER → 2017-09-01 | Outpatient (CLI) | payer MEDICARE, MEDICAID | LOC: M PAIN 09:15 | PROVIDERS: ATTEND Nurse Practitioner Family | DX: G89.29 Other chronic pain (principal); M50.13 Cervical disc disorder with radiculopathy, cervicothoracic region; J44.9 Chronic obstructive pulmonary disease, unspecified; E78.4 Other hyperlipidemia; I10 Essential (primary) hypertension; F32.9 Major depressive disorder, single episode, unspecified; K21.9 Gastro-esophageal reflux disease without esophagitis; F17.210 Nicotine dependence, cigarettes, uncomplicated; E55.9 Vitamin D deficiency, unspecified; Z79.891 Long term (current) use of opiate analgesic; Z79.899 Other long term (current) drug therapy ==

== ENCOUNTER → 2017-10-25 | Outpatient (CLI) | payer MEDICARE, MEDICAID | LOC: M PAIN 09:30 | DX: M50.93 Cervical disc disorder, unspecified, cervicothoracic region (principal); J44.9 Chronic obstructive pulmonary disease, unspecified; E78.5 Hyperlipidemia, unspecified; I10 Essential (primary) hypertension; F32.9 Major depressive disorder, single episode, unspecified; K21.9 Gastro-esophageal reflux disease without esophagitis; Z79.891 Long term (current) use of opiate analgesic; Z79.899 Other long term (current) drug therapy | CPT/HCPCS: G0463 ==

== ENCOUNTER → 2017-12-25 | Outpatient (CLI) | payer MEDICARE, MEDICAID | LOC: M PAIN 08:30 | DX: M50.93 Cervical disc disorder, unspecified, cervicothoracic region (principal); J44.9 Chronic obstructive pulmonary disease, unspecified; E78.5 Hyperlipidemia, unspecified; I10 Essential (primary) hypertension; F17.210 Nicotine dependence, cigarettes, uncomplicated; Z79.891 Long term (current) use of opiate analgesic; Z79.899 Other long term (current) drug therapy | CPT/HCPCS: G0463 ==

== ENCOUNTER → 2018-03-27 | Outpatient (CLI) | payer MEDICARE, MEDICAID | LOC: M PAIN 08:30 | DX: M50.93 Cervical disc disorder, unspecified, cervicothoracic region (principal); J44.9 Chronic obstructive pulmonary disease, unspecified; F32.9 Major depressive disorder, single episode, unspecified; E78.5 Hyperlipidemia, unspecified; I10 Essential (primary) hypertension; G25.0 Essential tremor; G43.909 Migraine, unspecified, not intractable, without status migrainosus; Z79.891 Long term (current) use of opiate analgesic; Z79.51 Long term (current) use of inhaled steroids; Z79.899 Other long term (current) drug therapy; Z96.652 Presence of left artificial knee joint; Z87.891 Personal history of nicotine dependence | CPT/HCPCS: G0463 ==

== ENCOUNTER → 2018-06-27 | Outpatient (CLI) | payer MEDICARE, MEDICAID | LOC: M PAIN 09:30 | DX: M50.93 Cervical disc disorder, unspecified, cervicothoracic region (principal); J44.9 Chronic obstructive pulmonary disease, unspecified; F32.9 Major depressive disorder, single episode, unspecified; E78.5 Hyperlipidemia, unspecified; I10 Essential (primary) hypertension; G43.909 Migraine, unspecified, not intractable, without status migrainosus; G25.0 Essential tremor; Z79.51 Long term (current) use of inhaled steroids; Z79.891 Long term (current) use of opiate analgesic; Z79.899 Other long term (current) drug therapy; Z96.651 Presence of right artificial knee joint; Z87.891 Personal history of nicotine dependence | CPT/HCPCS: G0463 ==

== ENCOUNTER → 2018-07-24 | Outpatient (CLI) | payer MEDICARE, MEDICAID | LOC: M RAD 09:41 | DX: Z12.2 Encounter for screening for malignant neoplasm of respiratory organs (principal); Z87.891 Personal history of nicotine dependence; J47.9 Bronchiectasis, uncomplicated; R91.1 Solitary pulmonary nodule | CPT/HCPCS: G0297 ==

== ENCOUNTER → 2018-08-24 | Outpatient (CLI) | payer MEDICARE | LOC: M RAD 11:46 | DX: K59.00 Constipation, unspecified (principal) | CPT/HCPCS: 74021 ==

== ENCOUNTER → 2018-09-07 | Outpatient (CLI) | payer MEDICARE ==
[~2018-09-07] MED LIST changes: -/ADVA50050; -/ADVA50050 INH; -/MOXI40TA; -/MOXI40TA OR; -/PANT40TA; -/TIOT18INH; -/TIOT18INH INH; -/WARF25TA PO; -ACET65TA; -ACET65TA OR; -ALBU83IN IN; -ALBU83IN INH; -ALBUTEROL INH; -ASPI325T OR; -ATOR1TAB21 PO; -CARD120T6 OR; -CHAN0.5P6 PO; -DEXI60CA2 PO; -DULO30CA PO; -EFFE150C PO; -EFFE75CA75; -GABA-283 PO; +GASTROGRAFIN SOLUTION 30ML (Q9963) As Ordered; -GUAIFENESIN SYRUP; -HYDR-3713 PO; -HYDR7.5T33 PO; -INCR1INH IN; +ISOVUE-370 76% 100ML VIAL (Q9967) As Ordered; -LIDO5DIS TD; -LIPI20TA OR; -LOPR50TA OR; -LOPR50TA PO; -LYRI75CA PO; -METH1TAB40 PO; -METH5TAB2; -METH5TAB2 PO; -NEUR300C PO; -NEUR800T; -NEUR800T OR; -NEUR800T PO; -OXYC1SOL3 PO; -PAXI10TA OR; -PAXI40TA10 PO; -PENN1.5S2 TD; -PRED10TA2; -PRED10TA2 OR; -PRED20TA; -PRED20TA OR; -PRED5TAB OR; -PROAAER INH; -PROV90AE; -THERGRAN; -TOPI25TA2 PO; -TOPI50TA OR; -TRAM50TA2 OR; -TRAM50TA2 PO; -TYLE325T5 PO; -VARE1TA; -VENL75TA2 OR; -WELL150T PO; -oxygen
== END ==
LOC: M RAD 15:00
DX: R14.0 Abdominal distension (gaseous) (principal); R10.31 Right lower quadrant pain; K59.00 Constipation, unspecified; N20.0 Calculus of kidney
CPT/HCPCS: Q9963

== ENCOUNTER → 2018-09-15 | Outpatient (REF) | payer MEDICARE, MEDICAID ==
[2018-09-15 17:44] LABS: ALBUMIN 3.5 GM/DL (3.2-5.2); ALBUMIN/GLOBULIN RATIO 0.92 (1.00-1.93); ALKALINE PHOSPHATASE 115 U/L (45-117); ALT/SGPT 24 U/L (12-78); ANION GAP 8 MEQ/L (8-16); AST/SGOT 15 U/L (7-37); BILIRUBIN,TOTAL 0.3 MG/DL (0.2-1.0); BLOOD UREA NITROGEN 15 MG/DL (7-18); CALCIUM LEVEL 8.8 MG/DL (8.5-10.1); CARBON DIOXIDE LEVEL 29 MEQ/L (21-32); CHLORIDE LEVEL 102 MEQ/L (98-107); CHOLESTEROL LEVEL 195 MG/DL (<200); CHOLESTEROL RISK RATIO 2.096 (<5); CREATININE FOR GFR 0.86 MG/DL (0.55-1.30); FREE T4 0.99 NG/DL (0.76-1.46); GLOMERULAR FILTRATION RATE > 60.0 (>51); GLUCOSE, FASTING 102 MG/DL (70-100); HDL CHOLESTEROL 93 MG/DL (>40); LDL CHOLESTEROL 89 MG/DL (<100); NON-HDL-C 102 MG/DL; SODIUM LEVEL 139 MEQ/L (136-145); TOTAL PROTEIN 7.3 GM/DL (6.4-8.2); TRIGLYCERIDES LEVEL 63 MG/DL (<150)
[2018-09-15 17:49] LABS: BASO % 0.4 % (0.0-1.0); EOS # 0.3 10^3/uL (0.0-0.50); EOS % 2.6 % (0.0-3.0); HEMATOCRIT 35.9 % (36.0-47.0); HEMOGLOBIN 10.8 g/dl (12.0-15.5); IMMATURE GRANULOCYTE % 0.6 % (0-3.0); LYMPH # 3.1 10^3/uL (1.5-4.5); LYMPH % 32.1 % (24.0-44.0); MEAN CORPUSCULAR HEMOGLOBIN 25.9 pg (27.0-33.0); MEAN CORPUSCULAR HGB CONC 30.1 g/dl (32.0-36.5); MEAN CORPUSCULAR VOLUME 86.1 fl (80.0-96.0); MONO # 0.7 10^3/uL (0.0-0.8); MONO % 6.9 % (0.0-5.0); NEUTROPHILS # 5.4 10^3/uL (1.8-7.7); NEUTROPHILS % 57.4 % (36.0-66.0); PLATELET COUNT, AUTOMATED 325 10^3/uL (150-450); RED BLOOD COUNT 4.17 10^6/uL (4.00-5.40); RED CELL DISTRIBUTION WIDTH 15.4 % (11.5-14.5); WHITE BLOOD COUNT 9.5 10^3/uL (4.0-10.0)
== END ==
LOC: M SFHCADAM 11:33
DX: E78.49 Other hyperlipidemia (principal); I10 Essential (primary) hypertension; E55.9 Vitamin D deficiency, unspecified
CPT/HCPCS: 84443

== ENCOUNTER → 2018-09-17 | Outpatient (REF) | payer MEDICARE, MEDICAID ==
[2018-09-17 16:14] LABS: HEMATOCRIT 38.4 % (36.0-47.0); HEMOGLOBIN 11.4 g/dl (12.0-15.5); MEAN CORPUSCULAR HGB CONC 29.7 g/dl (32.0-36.5); MEAN CORPUSCULAR VOLUME 87.5 fl (80.0-96.0); PLATELET COUNT, AUTOMATED 366 10^3/uL (150-450); RED BLOOD COUNT 4.39 10^6/uL (4.00-5.40); RED CELL DISTRIBUTION WIDTH 15.3 % (11.5-14.5); WHITE BLOOD COUNT 9.4 10^3/uL (4.0-10.0)
[2018-09-17 16:27] LABS: ESTIMATED AVERAGE GLUCOSE 140 MG/DL (60-110); HEMOGLOBIN A1c 6.5 %
[2018-09-17 16:37] LABS: FERRITIN 5 NG/ML (8-252); IRON (FE) 32 UG/DL (50-170); PERCENT SATURATION 7.4 % (13.2-45.0); TOTAL IRON BINDING CAPACITY 435 UG/DL (250-450)
[2018-09-17 16:47] LABS: VITAMIN B12 LEVEL 547 PG/ML
[2018-09-17 16:48] LABS: FOLATE > 24.0 NG/ML
== END ==
LOC: M SFHCADAM 15:10
DX: D64.9 Anemia, unspecified (principal); R73.01 Impaired fasting glucose
CPT/HCPCS: 82746

== ENCOUNTER → 2018-10-30 | Outpatient (CLI) | payer MEDICARE, MEDICAID ==
[~2018-10-30] MED LIST changes: +/ADVA50050; +/ADVA50050 INH; +/MOXI40TA; +/MOXI40TA OR; +/PANT40TA; +/TIOT18INH; +/TIOT18INH INH; +/WARF25TA PO; +ACET65TA; +ACET65TA OR; +ALBU83IN IN; +ALBU83IN INH; +ALBUTEROL INH; +ASPI325T OR; +ATOR1TAB21 PO; +AZIT500T2 PO; +CARD120T6 OR; +CEFD1CAP8 PO; +CHAN0.5P6 PO; +CHAN1PAK13 PO; +DEXI60CA2 PO; +DULO30CA PO; +EFFE150C PO; +EFFE75CA75; +GABA-845 PO; +GABA600T4 PO; -GASTROGRAFIN SOLUTION 30ML (Q9963) As Ordered; +GUAIFENESIN SYRUP; +HYDR-3713 PO; +HYDR7.5T33 PO; +INCR1INH IN; +INCR1INH INH; -ISOVUE-370 76% 100ML VIAL (Q9967) As Ordered; +LEVO25TA5 PO; +LIDO5DIS TD; +LINZ145C PO; +LIPI20TA OR; +LOPR50TA OR; +LOPR50TA PO; +LYRI75CA PO; +MELO15TA28 PO; +METH1TAB40 PO; +METH5TAB2; +METH5TAB2 PO; +NEUR300C PO; +NEUR800T; +NEUR800T OR; +NEUR800T PO; +OXYC-517 PO; +OXYC1SOL3 PO; +PARO40TA2 PO; +PAXI10TA OR; +PAXI40TA10 PO; +PENN1.5S2 TD; +PRED10TA2; +PRED10TA2 OR; +PRED20TA; +PRED20TA OR; +PRED5TAB OR; +PROAAER INH; +PROV90AE; +THERGRAN; +TIZA2TA PO; +TOPI100T9 PO; +TOPI25TA2 PO; +TOPI50TA OR; +TRAM50TA2 OR; +TRAM50TA2 PO; +TYLE325T5 PO; +VARE1TA; +VENL75TA2 OR; +WELL150T PO; +oxygen
--- NOTE | 2018-11-19 01:27 | ECWPNPC ---
PATIENT NAME: ARTHUR ALSTON : 1960 GENDER: FEMALE VISIT DATE: 10/30/2018 DISCHARGE DATE: 10/30/18 1512 VISIT LOCKED DATE TIME: PHYSICIAN: HARSH RICHTER RESOURCE: HARSH RICHTER REASON FOR APPOINTMENT 1. SW PT, MED MAN NECK PAIN HISTORY OF PRESENT ILLNESS HISTORY OF PRESENT ILLNESS: HERE FOR F/U OF CHRONIC NECK PAIN.HAS BEEN FOLLOWED AT OUR PAIN CLINIC FOR SEVERAL YEARS.ON CHRONIC MEDICATION TO INCIUDE OXYCODONE 5MG BID ,GABAPENTIN ,TIZANIDINE AND MOBIC.FINDS CURRENT MEDICATION EFFECTIVE AT REDUCING PAIN AND KEEPING HER COMFORTABLE.RATING PAIN VAS 8/10. PAIN THE PATIENT DESCRIBES THE PAIN... 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 PATIENT ON 3L OXY-GO-POC TAKING GABAPENTIN 600 MG TABLET 1 TABLET ORALLY THREE TIMES A DAY TAKING TIZANIDINE HCL 2 MG TABLET 1 TABLET NEEDED ORALLY BEFORE BEDTIME TAKING MELOXICAM 15 MG TABLET 1 TABLET ORALLY ONCE A DAY TAKING PAROXETINE HCL 40 MG TABLET TAKE ONE TABLET BY MOUTH EVERY MORNING TAKING CHANTIX CONTINUING MONTH DIANELYS 1 MG TABLET 1 TABLET ORALLY TWICE A DAY TAKING LIPITOR 20 MG TABLET 1 TABLET ORALLY ONCE A DAY TAKING DULOXETINE HCL 60 MG CAP 1 CAP(S) ORALLY ONCE A DAY TAKING SYNTHROID 25 MCG TABLET 1 TABLET ON AN EMPTY STOMACH IN THE MORNING ORALLY ONCE A DAY TAKING FERROUS SULFATE 325 (65 FE) MG TABLET 1 TABLET ORALLY ONCE A DAY TAKING OXYCODONE HCL 5 MG TABLET 1 TABLET ORALLY EVERY 8-12 HOURS PRN PAIN MDD=2 TAKING LINZESS 145 MCG CAPSULES 1 CAPSUL P.O. DAILY NOT-TAKING DRISDOL 63455 UNIT CAPSULE 1 CAPSULE ORALLY ONCE WEEKLY NOT-TAKING CHANTIX STARTING MONTH DIANELYS 0.5 MG X 11 & 1 MG X 42 TABLET DIRECTED ORALLY TWICE DAILY MEDICATION LIST REVIEWED AND RECONCILED WITH THE PATIENT PAST MEDICAL HISTORY COPD CHRONIC OBSTRUCTIVE BRONCHITIS, EMPHYSEMA, DR TREJO CHRONIC O2 3 LPM CHRONIC NECK PAIN - PAIN CLINIC DEPRESSION HYPERLIPIDEMIA HYPERTENSION, 07/05 EKG NSR GERD STRESS URINARY INCONTINENCE H/O ABN MAMMO 07/06, BX 09/05 NEG, AGUERO DUE FOR REPEAT MAMMO EMANUEL DEP 08/02 ECHO, NL EXCEPT MILD RVH PINEAL CYST- NEURO, MRI 05/08 WITHOUT CHANGE. 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 SURGICAL HISTORY CERVICAL SPINE FUSION - WITH RODS AND BONE GRAFT. 1997 LEFT TOTAL KNEE REPLACEMENT- NCOG 07/05 TUBAL LIGATION COLONOSCOPY 08/05 POOR PREP, REPEAT 10/05, SUBOPTIMAL PREP, REPEAT IN 1 YEAR, NBIH 08/05, 10/05 FAMILY HISTORY FATHER: , DIAGNOSED WITH OTHER MOTHER: ALIVE, DIAGNOSED WITH CANCER PATERNAL GRAND FATHER: PATERNAL GRAND MOTHER: MATERNAL GRAND FATHER: MATERNAL GRAND MOTHER: 2 BROTHER(S) , 1 SISTER(S) - HEALTHY. 2 SON(S) , 1 DAUGHTER(S) . FATHER: CIRROHSIS OF THE LIVERMOTHER: COLON CA, HAS A COLOSTOMY BAGBROTHER: HTNSON: AT 23. SOCIAL HISTORY GENERAL: TOBACCO USE ARE YOU A:FORMER SMOKER HAS QUIT > 1 YEAR, REMAINS ON CHANTIX HOW LONG HAS IT BEEN SINCE YOU LAST SMOKED?1-5 YEARS LUNG CANCER SCREENING SMOKING STATUS:FORMER SMOKER BMI CARE GOAL FOLLOW-UP ABOVE NORMAL BMI FOLLOW-UPDIETARY MANAGEMENT EDUCATION, GUIDANCE, AND COUNSELING ALCOHOL SCREENING DID YOU HAVE A DRINK CONTAINING ALCOHOL IN THE PAST YEAR?YES HOW OFTEN DID YOU HAVE SIX OR MORE DRINKS ON ONE OCCASION IN THE PAST YEAR?NEVER (0 POINTS) HOW MANY DRINKS DID YOU HAVE ON A TYPICAL DAY WHEN YOU WERE DRINKING IN THE PAST YEAR?1 OR 2 (0 POINTS) HOW OFTEN DID YOU HAVE A DRINK CONTAINING ALCOHOL IN THE PAST YEAR?MONTHLY OR LESS (1 POINT) POINTS1 INTERPRETATIONNEGATIVE RECREATIONAL DRUG USE DRUG USE?NO CAFFEINE CAFFEINE USE?YES COFFEE DAILY SEXUAL HX HAD SEX IN THE LAST 12 MONTHS (VAGINAL, ORAL, OR ANAL)?NO HIV / HEP-C SCREENING HIV TEST OFFERED TO PATIENT:YES DATE OFFERED:06/29/2017 TEST ACCEPTED:NO HEP-C TEST OFFERED TO PATIENT:YES DATE OFFERED:06/29/2017 REASON:PATIENT DECLINED TEST ACCEPTED:NO REASON:PATIENT DECLINED ZOROASTRIANISM [id number] NONE LANGUAGE LANGUAGES SPOKEN:[place] EDUCATION LEVEL OF EDUCATION:FINISHED HIGH SCHOOL LEARNING 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 OCCUPATION: DISABLED. DIET: REGULAR. EXERCISE: NO REGULAR EXERCISE. MARITAL STATUS: . NEW PATIENT PAIN DIARY TODAY'S VISIT NOTES, FROM 0-10, WHAT LEVEL IS YOUR PAIN TODAY? 0. PAIN CLINIC PFS, CLERGY, PUBLIC HEALTH REFERRALS PFS REFERRAL NEEDED?NO CLERGY REFERRAL NEEDED?NO PUBLIC HEALTH REFERRAL NEEDED?NO WAS THE PROVIDER NOTIFIED OF ANY PERTINENT INFO?NO HAS THE PATIENT BEEN EDUCATED REGARDING HIS/HER PLAN OF CARE?YES HAS THE PATIENT BEEN EDUCATED REGARDING PAIN, THE RISK FOR PAIN, THE IMPORTANCE OF EFFECTIVE PAIN MANAGEMENT, AND THE PAIN ASSESSMENT PROCESS?YES ADVANCE DIRECTIVE ADVANCE DIRECTIVE DISCUSSED WITH PATIENT:YES PT HAS NO ADVANCED DIRECTIVES, DECLINES INFORMATION OR ASSISTANCE AT THIS TIME 12/25/2017 0900 REVIEWED LAS03/27/18 0902 REVIEWED BVREVIEWED WITH PT 06/27/2018 0930 LASREVIEWED WITH PT 10/30/18 1445 LAS. HOSPITALIZATION/MAJOR DIAGNOSTIC PROCEDURE L KNEE REPLACEMENT 07/05 VAGINAL DELIVERIES PNEUMONIA CERVICAL SPINE FUSION 1997 ATYPICAL CP 08/02 ACUTE RESP FAILURE 03/03 REVIEW OF SYSTEMS REVIEWED BY: PROVIDER: HARSH VALADEZ . CONSTITUTIONAL: ANY CHANGE IN YOUR MEDICAL CONDITION? YES HYPOTHYROID, STARTED ON SYNTHROID AND ANEMIC , STARTED ON IRON AT LAST PRIMARY VISIT, TO SEE PRIMARY NEXT WEEK . CHILLS NO . FEVER NO . INFECTION: DO YOU HAVE NEW INFECTIONS? NO . DO YOU HAVE HISTORY OF MRSA? NO . MUSCULOSKELETAL: ANY NEW PATTERNS OF PAIN OR NUMBNESS? NO . GASTROENTEROLOGY: ANY NEW CHANGE IN BOWEL CONTROL? NO . GENITOURINARY: ANY NEW CHANGE IN BLADDER CONTROL? NO . IS THERE A CHANCE YOU COULD BE ? NO . HEMATOLOGY/LYMPH: DO YOU TAKE ANY BLOOD THINNERS? (FOR EXAMPLE- COUMADIN, PLAVIX, AGGRENOX, PLATEL, PRADAXA, OR XARELTO) NO . WHEN WAS YOUR LAST DOSE? DATE: TIME: . NEUROLOGY: HAVE YOU FALLEN IN THE PAST 6 MONTHS? NO . ANY NEW EXTREMITY NUMBNESS OR WEAKNESS? NO . CARDIOLOGY: DO YOU HAVE A PACEMAKER OR DEFIBRILLATOR? NO . RESPIRATORY: HAVE YOU BEEN SICK IN THE PAST WEEK? NO . FEVER NO . FLU LIKE SYMPTOMS? NO . COUGH NO . INTEGUMENTARY: DO YOU HAVE ANY RASHES OR OPEN SORES? NO . ALLERGIC/IMMUNO: ARE YOU ALLERGIC TO SHELLFISH OR IV DYE? NO . ANY NEW ALLERGIES? NO . PSYCHIATRIC: DO YOU HAVE THOUGHTS OF HURTING YOURSELF OR SOMEONE ELSE? NO . ARE YOU ABUSED, NEGLECTED, OR IN AN UNSAFE ENVIRONMENT? NO . ENDOCRINOLOGY: ARE YOU DIABETIC? NO . OTHER: DO YOU NEED ANY PRESCRIPTIONS? YES . IF YES, PLEASE LIST: ____GABAPENTIN . ANY NEW PROBLEMS WITH YOUR MEDICATIONS? NO . WHEN DID YOU LAST EAT? ____ . WHEN DID YOU LAST DRINK? ____ . WHAT DID YOU LAST DRINK? ____ . NAME OF PERSON DRIVING YOU HOME? ____ . DO YOU HAVE ANY OTHER QUESTIONS OR CONCERNS NO . VITAL SIGNS WT 186.2 LBS, HT 64", BMI 31.96 INDEX, BP 135/65 MM HG, HR 124 /MIN, RR 22 /MIN, TEMP 97.0 F, OXYGEN SAT % 92% ON 3 L, SAFE IN ENV? (Y/N) YES, NA INITIALS AW 1417, REVIEWED BY: OMAIRA. EXAMINATION GENERAL EXAMINATION: GENERAL APPEARANCE:AWAKE,ALERT ,PLEAASANT . PSYCHAFFECT NORMAL . LUNGS:LUNG ROCK ARE CLEAR TO AUSCULTATION BILATERALLY. GOOD MOVEMENT OF AIR . HEART:S1, S2 IN A REGULAR RATE AND RHYTHM. NO SIGNIFICANT MURMURS, RUBS OR GALLOPS NOTED . 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 (REF # [id number] ) BRINGS IN MEDICATIONS WHICH IS APPROPRIATE FOR WHAT WAS DISPENSED. RECENT URINE TOXICOLOGY REVIEWED. NO UNAUTHORIZED MEDICATIONS. NO ILLICIT SUBSTANCES AND PRESCRIBED MEDICATIONS WERE PRESENT. , RISKS AND BENEFITS OF NARCOTIC/OPIOD MEDICATIONS WERE REVIEWED WITH PATIENT - THIS INCLUDES BUT IS NOT LIMITED TO RISK OF DEPENDANCE/DEVELOPMENT OF ADDICTION, MOOD DISTURBANCE AND DEPRESSION, OSTEOPOROSIS, HORMONAL AND LABIDAL CHANGES, RESPIRATORY DEPRESSION AND . PATIENT IS ADVISED NOT TO DRIVE OR DRINK ALCOHOL WHILE ON THESE MEDICATIONS. PROCEDURE CODES [id number] ESTABILISHED PATIENT [facility] CHARGE DISPOSITION & COMMUNICATION FOLLOW UP 3 MONTHS ELECTRONICALLY SIGNED BY ALLYSON ONEIL ON 11/18/2018 AT 12:45 PM EST DISCLAIMER : THIS IS A VISIT SUMMARY EXTRACTED FROM THE [employer] CHART. IT IS NOT A COPY OF THE [employer] PROGRESS NOTE. ELVIA
== END ==
LOC: M PAIN 14:00
PROVIDERS: ATTEND Nurse Practitioner Family
DX: M50.93 Cervical disc disorder, unspecified, cervicothoracic region (principal); G89.29 Other chronic pain; J44.9 Chronic obstructive pulmonary disease, unspecified; E78.5 Hyperlipidemia, unspecified; I10 Essential (primary) hypertension; F32.9 Major depressive disorder, single episode, unspecified; K21.9 Gastro-esophageal reflux disease without esophagitis; G43.909 Migraine, unspecified, not intractable, without status migrainosus; E03.9 Hypothyroidism, unspecified; D64.9 Anemia, unspecified; Z79.51 Long term (current) use of inhaled steroids; Z79.891 Long term (current) use of opiate analgesic; Z79.899 Other long term (current) drug therapy; Z87.891 Personal history of nicotine dependence; Z96.652 Presence of left artificial knee joint

== ENCOUNTER 2018-11-05 15:26 | Inpatient (IN) | payer MEDICARE, MEDICAID ==
[~2018-11-05] VITALS: Ht 167.6 cm; Wt 82.6 kg
[~2018-11-05 15:26] MED LIST changes: -AZIT500T2 PO; -CEFD1CAP8 PO; -CHAN1PAK13 PO; -GABA600T4 PO; -INCR1INH INH; -LEVO25TA5 PO; -LINZ145C PO; -MELO15TA28 PO; -OXYC-517 PO; -PARO40TA2 PO; -TIZA2TA PO; -TOPI100T9 PO
[2018-11-05] MEDS ORDERED: TIZA2TA PO (15:51)
[2018-11-05] MEDS ORDERED: TOPI100T9 PO ×2 (15:51→16:52)
[2018-11-05] MEDS ORDERED: MELO15TA28 PO (15:51)
[2018-11-05] MEDS ORDERED: PARO40TA2 PO (15:51)
[2018-11-05] MEDS ORDERED: CHAN1PAK13 PO (15:51)
[2018-11-05] MEDS ORDERED: ATOR1TAB21 PO (15:51)
[2018-11-05] MEDS ORDERED: GABA600T4 PO (15:51)
[2018-11-05] MEDS ORDERED: OXYC-517 PO (15:51)
[2018-11-05] MEDS ORDERED: LINZ145C PO (15:51)
[2018-11-05] MEDS ORDERED: LEVO25TA5 PO (15:51)
[2018-11-05] MEDS ORDERED: dexameTHASONE 20 MG/5 ML VIAL (J1100) IV ONE (16:15)
[2018-11-05] MEDS ORDERED: IPRATROPIUM 0.5MG/ALBUTEROL 2.5MG INH SOL UD 3ML (DUONEB)(J7620) NEB ONE (16:15)
[2018-11-05 16:25] LABS: BASO % 0.2 % (0.0-1.0); EOS # 0.3 10^3/uL (0.0-0.50); HEMOGLOBIN 11.9 g/dl (12.0-15.5); LYMPH # 1.2 10^3/uL (1.5-4.5); MEAN CORPUSCULAR HGB CONC 31.3 g/dl (32.0-36.5); MEAN CORPUSCULAR VOLUME 86.4 fl (80.0-96.0); MONO # 1.2 10^3/uL (0.0-0.8); MONO % 7.7 % (0.0-5.0); NEUTROPHILS # 12.5 10^3/uL (1.8-7.7); NEUTROPHILS % 81.6 % (36.0-66.0); PLATELET COUNT, AUTOMATED 262 10^3/uL (150-450); WHITE BLOOD COUNT 15.3 10^3/uL (4.0-10.0)
[2018-11-05 16:35] LABS: PARTIAL THROMBOPLASTIN TIME 35.1 SECONDS (25.4-37.6)
--- NOTE | 2018-11-05 16:36 | REP ---
Chest one-view HISTORY: Dyspnea Comparison: 04/04/2017 An increase in interstitial markings is present in the lungs. Patchy density is present in the right lower lobe consistent with an infiltrate. The heart is normal in size. The pulmonary vasculature is normal in appearance. Impression: 1. COPD. 2. Right lower lobe infiltrate. Electronically Signed by Rad Haley MD 11/05/2018 04:28 P
[2018-11-05 16:37] LABS: INR 1.12; PROTHROMBIN TIME 14.5 SECONDS (12.1-14.4)
[2018-11-05] MEDS ORDERED: INCR1INH INH (16:53)
[2018-11-05 16:56] LABS: BLOOD UREA NITROGEN 12 MG/DL (7-18); CALCIUM LEVEL 8.8 MG/DL (8.5-10.1); CARBON DIOXIDE LEVEL 28 MEQ/L (21-32); CHLORIDE LEVEL 98 MEQ/L (98-107); CREATININE FOR GFR 0.82 MG/DL (0.55-1.30); GLOMERULAR FILTRATION RATE > 60.0 (>51); GLUCOSE, FASTING 137 MG/DL (70-100); POTASSIUM SERUM 3.6 MEQ/L (3.5-5.1); SODIUM LEVEL 135 MEQ/L (136-145)
[2018-11-05 16:56] LABS: INFLUENZA A AMPLIFICATION NEGATIVE (NEGATIVE); INFLUENZA B AMPLIFICATION NEGATIVE (NEGATIVE)
[2018-11-05] MEDS ORDERED: AZITHROMYCIN INJ 500 MG, VIAL MATE ADAPTER 1 EACH in D5W 250 ML IV ONE (17:00)
[2018-11-05] MEDS ORDERED: CEFUROXIME SODIUM 1.5 GM in D5W MINI-BAG PLUS 50 ML IV ONE (17:00)
[2018-11-05] MEDS ORDERED: NS 500 ML IV ONE (17:15)
[2018-11-05] MEDS ORDERED: KETOROLAC 30 MG/ML VIAL (J1885) IV ONE (17:15)
[2018-11-05] MEDS ORDERED: MORPHINE 4 MG/ML 1ML VIAL/SYRINGE (J2270) IV PRN (18:30)
[2018-11-05] MEDS ORDERED: ALBUTEROL SULFATE 2.5 MG/0.5 ML INH NEB SOLN INH PRN (18:30)
--- NOTE | 2018-11-05 19:17 | HPE ---
DATE OF ADMISSION: 11/05/2018 This is a 58-year-old female with past medical history of oxygen dependent chronic obstructive pulmonary disease (COPD) requiring 3 liters nasal cannula, history of chronic pain syndrome, depression, hyperlipidemia, hypertension, who presents to the emergency room with fever, aches and chills that started this past Monday and has continued. She said that she had mild shortness of breath also associated with this, but what brought her to the emergency room was the sharp pleuritic chest pain that she had on her right side during inspiration on the day of admission, along with a cough that is nonproductive, so she came to the emergency room for evaluation. In the emergency room, she had a chest x-ray done, which found a right lower lobe consolidation. The patient was given Decadron intravenously 20 mg and one DuoNeb, and she maintained her saturations of 93% on her normal 3 liters of nasal cannula. She is currently not short of breath. She has not been around any sick contacts. She did have as fever of 100.3 in the emergency room. She was given Tylenol for this. She will be admitted for further management. Again, past medical history of chronic oxygen dependent COPD requiring 3 liters of nasal cannula, history of chronic pain syndrome, depression, hyperlipidemia, hypertension, gastroesophageal reflux disease (GERD), history of stress urinary incontinence, essential tremors, migraines. She has a past surgical history of cervical spine fusion with rods and bone graft in 1997, left total knee replacement in June 2013, tubal ligation and a colonoscopy in July 2014. ALLERGIES: She has no known drug allergies. FAMILY HISTORY: Noncontributory. SOCIAL HISTORY: The patient was a heavy smoker, quit 1 year ago. Denies alcohol or illicit drugs. MEDICATIONS: She takes at home: - albuterol inhaler as needed - atorvastatin 20 mg orally daily - Dexilant 60 mg orally daily - gabapentin 600 mg orally three times a day - Incruse Ellipta one puff inhaled daily - Synthroid 25 mcg orally daily - meloxicam 50 mg orally daily - oxycodone 5 mg orally twice a day as needed - naproxen 40 mg orally at bedtime - tizanidine 2 mg orally at bedtime - topiramate 100 mg orally in the morning - Chantix 1 mg orally twice a day REVIEW OF SYSTEMS: Negative for all ten major systems except what is mentioned in the history of present illness. VITAL SIGNS: Blood pressure is 131/66, heart rate is 117 and regular, respiratory rate is 24, temperature is 100.2, oxygen saturation is 93% on 3 liters nasal cannula. Head is atraumatic, normocephalic. Neck is supple with no jugular venous distention (JVD). Lungs have diminished breath sounds in the right base. S1, S2 audible. No murmurs appreciated. Abdomen is soft. Positive bowel sounds. No pedal edema. Skin is intact. Neurologic examination, the patient is awake, alert and oriented times three. LABORATORY DATA: WBC 15.3, hemoglobin 11.9, hematocrit 38, platelets are 260,000. Sodium 135, potassium 3.6, chloride 98, CO2 of 28, BUN 12, creatinine 0.82, fasting glucose 137, lactic acid 0.9. IMPRESSION: 1. Community-acquired pneumonia. 2. Pleurisy. PLAN: The patient is to be admitted to the medical/surgical floor. I will start the patient on IV Rocephin and Zithromax. I do not believe she is in chronic obstructive pulmonary disease (COPD) exacerbation at this time so I will maintain her at home medications for COPD. I will give her morphine 2 mg IV every 2 hours as needed for pleuritic chest pain and resume all of her previous medications. I will continue her care on the medical/surgical floor. [facility]
[2018-11-05 20:47] VITALS: BP 122/76
[2018-11-05] MEDS: GABAPENTIN 300 MG CAP PO SCH (21:19)
[2018-11-05] MEDS: PARoxetine 20 MG TAB PO SCH (22:03)
[2018-11-06] MEDS: LEVOTHYROXINE 25MCG TABLET (0.025MG) PO SCH (05:38)
[2018-11-06 06:41] LABS: BASO % 0.1 % (0.0-1.0); HEMATOCRIT 35.7 % (36.0-47.0); HEMOGLOBIN 11.2 g/dl (12.0-15.5); LYMPH # 0.7 10^3/uL (1.5-4.5); LYMPH % 6.8 % (24.0-44.0); MEAN CORPUSCULAR HEMOGLOBIN 26.7 pg (27.0-33.0); MEAN CORPUSCULAR HGB CONC 31.4 g/dl (32.0-36.5); MONO # 0.2 10^3/uL (0.0-0.8); MONO % 1.9 % (0.0-5.0); NEUTROPHILS # 9.6 10^3/uL (1.8-7.7); NEUTROPHILS % 90.6 % (36.0-66.0); PLATELET COUNT, AUTOMATED 284 10^3/uL (150-450); WHITE BLOOD COUNT 10.6 10^3/uL (4.0-10.0)
[2018-11-06 07:07] LABS: BLOOD UREA NITROGEN 14 MG/DL (7-18); CALCIUM LEVEL 8.9 MG/DL (8.5-10.1); CARBON DIOXIDE LEVEL 26 MEQ/L (21-32); CHLORIDE LEVEL 102 MEQ/L (98-107); GLOMERULAR FILTRATION RATE > 60.0 (>51); GLUCOSE, FASTING 167 MG/DL (70-100); POTASSIUM SERUM 3.8 MEQ/L (3.5-5.1); SODIUM LEVEL 137 MEQ/L (136-145)
[2018-11-06] MEDS: TIOTROPIUM INHALER/CAPSULE (SPIRIVA) INH SCH (08:00)
[2018-11-06] MEDS: ADVAIR HFA 230/21MCG INHALER INH SCH ×2 (08:09→20:23)
[2018-11-06] MEDS: MELOXICAM (MOBIC) 7.5 MG TAB PO SCH (08:54)
[2018-11-06] MEDS: ATORVASTATIN 20 MG TAB PO SCH (08:54)
[2018-11-06] MEDS: GABAPENTIN 300 MG CAP PO SCH ×3 (08:54→20:04)
[2018-11-06] MEDS: TOPIRAMATE (TopAMAX) 100 MG TAB PO SCH (08:54)
[2018-11-06] MEDS: cefTRIAXone SOD 1 GM in D5W MINI-BAG PLUS 50 ML IV SCH (08:54)
[2018-11-06] MEDS ORDERED: FLUBLOK(EGG FREE)(QUAD)INFLUENZA VACC 0.5ML SYRINGE (90682)18YRS&OLDER IM ONE (09:00)
[2018-11-06] MEDS: oxyCODONE 5MG TAB PO PRN ×2 (09:01→20:05)
--- NOTE | 2018-11-06 11:02 | IPNPDOC ---
Subjective Date Seen The patient was seen on 11/06/18. Subjective Chief Complaint/HPI Patient is a 58 yo female with PMH on COPD on 24 hr 3L nasal cannula, depression, HTN, and chronic pain syndrome presents with sharp right sided chest pain, fever, chills. Events since last encounter Patient states that she has been feeling a lot better. She said that her right sided chest pain/pleuritic pain had improved alot, and that she does not have fever, chills, or SOB anymore. She said that her cough has been improving alot, and she has a non-productive cough but is not sure what color it is. Described thick rhinorrhea. Patient states that at home she is able to ambulate on her own, but she has chronic lower extremities and left upper extremity weakness from radiculopathy. Denies sore throat, headache, or sinus pain Constitutional: Denies: Chills, Fever ENT: Denies: Head Aches, Sinus Congestion, Sore Throat Pulmonary: Reports: Cough, Pleuritic Chest Pain (Mild); Denies: Dyspnea Gastrointestinal: Reports: Constipation (chronic); Denies: Nausea, Vomiting, Abdominal Pain Neurological: Reports: Weakness, Numbness (in right upper extremity from shoulder to hand); Denies: Change in speech Psych: Denies: Memory Issues Objective Physical Examination General Exam: Positive: Alert, Cooperative, Mild Distress (Minimal distress) Eye Exam: Positive: Conjunctiva & lids normal; Negative: Sclera icteric, Ptosis ENT Exam: Positive: Atraumatic, Mucous membr. moist/pink Neck Exam: Positive: Supple; Negative: JVD Chest Exam: Positive: Clear to auscultation, Normal air movement, Diminished (Mild diminished breath sound in right lower lobe. ), Other (there is some dullness to percussion noted at the right posterior base); Negative: Rales, Rhonchi, Wheezing Heart Exam: Positive: Tachycardic, Normal S1, Normal S2; Negative: Murmurs Abdomen Exam: Positive: BS Hypoactive, Soft; Negative: Tenderness (Hypoactive but aus. in all 4 quadrants) Extremity Exam: Negative: Edema, Tenderness, Swelling Skin Exam: Positive: Nl turgor and temperature Neuro Exam: Negative: Strength at 5/5 X4 ext (+3/5 in left upper extremity and b/l lower extremities. +5/5 in right upper extremity) Assessment /Plan Problems (1) Community acquired pneumonia Status: Acute Response to Treatment: Improving Problem Text: Leukocytosis improving and patient afebrile today. Improving cough and right sided pleuritic pain. CXR on 11/05/18 showed right lower lobe infiltrate. Sputum culture ordered. IV Ceftraixone 12/02 and Azithromycin day 11/27. ESR and CRP both elevated; CRP at 22.9. Continue to follow up with CBC and CRP. Vital signs and respiratory tx as scheduled (2) Pleurisy Status: Acute Response to Treatment: Improving Problem Text: Likely 2/2 to community acquired pneumonia. Right sided pleuritic chest pain improving. On IV Ceftraixone and Azithromycin. Sputum cx pending. CRP and ESR both elevated, continue to trend CRP and CBC. Vital signs as scheduled (3) COPD (chronic obstructive pulmonary disease) Status: Chronic Response to Treatment: Stable, Controlled Problem Text: Continue home oxygen [place] 3L. Pt denies SOB; infrequent productive cough likely to PNA. No signs and symptoms of exacerbation. Sat well on NC. Respiratory treatment and vital signs as scheduled. (4) Depression Status: Chronic Response to Treatment: Stable, Controlled Problem Text: Continue home medication paroxetine (5) Hypothyroidism Status: Chronic Response to Treatment: Stable Problem Text: Continue home medication levothyroxine (6) Migraine without aura Status: Chronic Response to Treatment: Stable, Controlled Problem Text: Continue home med Topramax. Continue to monitor the pt (7) Chronic pain syndrome Status: Chronic Response to Treatment: Stable Problem Text: Continue home med gabapentin, Meloxicam, and oxycodone. Continue to monitor (8) DVT prophylaxis Status: Acute Response to Treatment: Stable, Controlled Problem Text: No signs or symptoms of DVT. Start SCD Plan/VTE VTE Prophylaxis Ordered?: Yes (SCD) Plan Diet: Continue Current Diagnostics: Repeat Labs in AM, Obtain Cultures Family Medicine Attending Note: I was present on site to supervise ISRAEL Davis. We discussed the history and exam. I confirmed the patterson elements during my [id number] encounter with the patient. We conferred on the assessment and plan; I agree with the note as documented. The patient is doing much better today. We may be able to change her to oral medications tomorrow with discharge in 1-2 days. 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 IV Ceftriaxone and IV Azithromycin day 2. Sputum Cx and blood Cx pending. F/u CRP. Lower extremity weakness pending PT eval. When stable for dc, PO Cefdinir to complete total 10 day course. VS, I&O, 24H, Fishbone Vital Signs/I&O Vital Signs Date Time Temp Pulse Resp B/P (MAP) Pulse Ox O2 Delivery O2 Flow Rate FiO2 11/06/18 09:31 20 Nasal Cannula 3.0 11/06/18 06:00 97.8 106 94 11/05/18 20:47 122/76 (91) I&O- Last 24 Hours up to 6 AM 11/06/18 06:00 Intake Total 170 ml Output Total 500 ml Balance -330 ml Laboratory Data 24H LABS Laboratory Tests 2 11/05/18 16:17: Immature Granulocyte % (Auto) 0.5, White Blood Count 15.3H, Red Blood Count 4.40, Hemoglobin 11.9L, Hematocrit 38.0, Mean Corpuscular Volume 86.4, Mean Corpuscular Hemoglobin 27.0, Mean Corpuscular Hemoglobin Concent 31.3L, Red Cell Distribution Width 15.0H, Platelet Count 262, Neutrophils (%) (Auto) 81.6H, Lymphocytes (%) (Auto) 8.0L, Monocytes (%) (Auto) 7.7H, Eosinophils (%) (Auto) 2.0, Basophils (%) (Auto) 0.2, Neutrophils # (Auto) 12.5H, Lymphocytes # (Auto) 1.2L, Monocytes # (Auto) 1.2H, Eosinophils # (Auto) 0.3, Basophils # (Auto) 0.0, Nucleated Red Blood Cells % (auto) 0.0, Prothrombin Time 14.5H, Prothromb Time International Ratio 1.12, Activated Partial Thromboplast Time 35.1, Lactic Acid Level 0.9, Influenza Type A (RT-PCR) NEGATIVE, Influenza Type B (RT-PCR) [facility] 11/05/18 16:18: Anion Gap 9, Glomerular Filtration Rate > 60.0, Blood Urea Nitrogen 12, Creatinine 0.82, Sodium Level 135L, Potassium Level 3.6, Chloride Level 98, Carbon Dioxide Level 28, Calcium Level 8.8 11/06/18 06:21: Immature Granulocyte % (Auto) 0.6, White Blood Count 10.6H, Red Blood Count 4.20, Hemoglobin 11.2L, Hematocrit 35.7L, Mean Corpuscular Volume 85.0, Mean Corpuscular Hemoglobin 26.7L, Mean Corpuscular Hemoglobin Concent 31.4L, Red Cell Distribution Width 14.7H, Platelet Count 284, Neutrophils (%) (Auto) 90.6H, Lymphocytes (%) (Auto) 6.8L, Monocytes (%) (Auto) 1.9, Eosinophils (%) (Auto) 0.0, Basophils (%) (Auto) 0.1, Neutrophils # (Auto) 9.6H, Lymphocytes # (Auto) 0.7L, Monocytes # (Auto) 0.2, Eosinophils # (Auto) 0.0, Basophils # (Auto) 0.0, Nucleated Red Blood Cells % (auto) 0.0, Anion Gap 9, Glomerular Filtration Rate > 60.0, Blood Urea Nitrogen 14, Creatinine 0.90, Sodium Level 137, Potassium Level 3.8, Chloride Level 102, Carbon Dioxide Level 26, Calcium Level 8.9, C- Reactive Protein, Quantitative 22.90H CBC/BMP Laboratory Tests 11/05/18 16:17 Red Blood Count 4.40, Mean Corpuscular Volume 86.4, Mean Corpuscular Hemoglobin 27.0, Mean Corpuscular Hemoglobin Concent 31.3 L, Red Cell Distribution Width 15.0 H, Neutrophils (%) (Auto) 81.6 H, Lymphocytes (%) (Auto) 8.0 L, Monocytes (%) (Auto) 7.7 H, Eosinophils (%) (Auto) 2.0, Basophils (%) (Auto) 0.2, Neutrophils # (Auto) 12.5 H, Lymphocytes # (Auto) 1.2 L, Monocytes # (Auto) 1.2 H, Eosinophils # (Auto) 0.3, Basophils # (Auto) 0.0 11/05/18 16:18 Calcium Level 8.8 11/06/18 06:21 Red Blood Count 4.20, Mean Corpuscular Volume 85.0, Mean Corpuscular Hemoglobin 26.7 L, Mean Corpuscular Hemoglobin Concent 31.4 L, Red Cell Distribution Width 14.7 H, Neutrophils (%) (Auto) 90.6 H, Lymphocytes (%) (Auto) 6.8 L, Monocytes (%) (Auto) 1.9, Eosinophils (%) (Auto) 0.0, Basophils (%) (Auto) 0.1, Ne utrophils # (Auto) 9.6 H, Lymphocytes # (Auto) 0.7 L, Monocytes # (Auto) 0.2, Eosinophils # (Auto) 0.0, Basophils # (Auto) 0.0, Calcium Level 8.9 Microbiology Microbiology 11/06/18 Blood Culture, Received Pending 11/05/18 Blood Culture, Received Pending ERIC TIMMONS DO Nov 06, 2018 11:02 am Antonio Jones MD Nov 06, 2018 11:30 pm
[2018-11-06 11:52] LABS: ERYTHROCYTE SEDIMENTATION RATE 70 mm/hr (0-30)
[2018-11-06 14:00] VITALS: BP 131/77
[2018-11-06 20:00] VITALS: BP 141/82
[2018-11-06] MEDS: PARoxetine 20 MG TAB PO SCH (20:04)
[2018-11-06] MEDS: AZITHROMYCIN INJ 500 MG, VIAL MATE ADAPTER 1 EACH in D5W 250 ML IV SCH (20:04)
[2018-11-07] MEDS: LEVOTHYROXINE 25MCG TABLET (0.025MG) PO SCH (05:58)
[2018-11-07 06:00] VITALS: BP 132/74
[2018-11-07 07:15] LABS: C REACTIVE PROTEIN QUANTITATIV 9.86 MG/DL (0.00-0.30)
[2018-11-07] MEDS: TIOTROPIUM INHALER/CAPSULE (SPIRIVA) INH SCH (08:00)
[2018-11-07] MEDS: ADVAIR HFA 230/21MCG INHALER INH SCH ×2 (08:09→20:35)
[2018-11-07 08:21] LABS: BLOOD UREA NITROGEN 18 MG/DL (7-18); CALCIUM LEVEL 8.6 MG/DL (8.5-10.1); CARBON DIOXIDE LEVEL 29 MEQ/L (21-32); CHLORIDE LEVEL 107 MEQ/L (98-107); CREATININE FOR GFR 0.73 MG/DL (0.55-1.30); GLOMERULAR FILTRATION RATE > 60.0 (>51); GLUCOSE, FASTING 102 MG/DL (70-100); POTASSIUM SERUM 3.9 MEQ/L (3.5-5.1); SODIUM LEVEL 141 MEQ/L (136-145)
[2018-11-07 08:24] LABS: HEMATOCRIT 33.3 % (36.0-47.0); HEMOGLOBIN 10.4 g/dl (12.0-15.5); MEAN CORPUSCULAR HEMOGLOBIN 26.5 pg (27.0-33.0); MEAN CORPUSCULAR HGB CONC 31.2 g/dl (32.0-36.5); MEAN CORPUSCULAR VOLUME 84.9 fl (80.0-96.0); PLATELET COUNT, AUTOMATED 294 10^3/uL (150-450); RED BLOOD COUNT 3.92 10^6/uL (4.00-5.40); WHITE BLOOD COUNT 12.5 10^3/uL (4.0-10.0)
[2018-11-07] MEDS: cefTRIAXone SOD 1 GM in D5W MINI-BAG PLUS 50 ML IV SCH (09:27)
[2018-11-07] MEDS: ATORVASTATIN 20 MG TAB PO SCH (09:28)
[2018-11-07] MEDS: MELOXICAM (MOBIC) 7.5 MG TAB PO SCH (09:28)
[2018-11-07] MEDS: TOPIRAMATE (TopAMAX) 100 MG TAB PO SCH (09:28)
[2018-11-07] MEDS: GABAPENTIN 300 MG CAP PO SCH ×3 (09:28→20:33)
[2018-11-07] MEDS: oxyCODONE 5MG TAB PO PRN ×2 (09:29→20:32)
--- NOTE | 2018-11-07 11:32 | IPNPDOC ---
Subjective Date Seen The patient was seen on 11/07/18. Subjective Chief Complaint/HPI Patient is examined at bedside. She states that she continues to feel better. She still has some mild right sided pleuritic chest pain. Cough has more more infrequent and is now non-productive. Denies fever, chills, palpitation, or SOB. She states that she is able to walk but not at baseline compared to when she was at home as she is still feeling weak.Pt describes that she would like to be put back on the medication that she was on including Chantix and PPI, states that she is having craving and she had heartburn sensation last night. She reported having one soft bowel movement yesterda General: Reports: Other Symptoms (Generalized weakness); Denies: Chills Constitutional: Reports: Weakness; Denies: Chills, Fever ENT: Denies: Head Aches, Ear Pain Pulmonary: Reports: Cough (Infrequent non-productive cough), Pleuritic Chest Pain (Improving); Denies: Dyspnea Cardiovascular: Denies: Palpitations, Paroxysmal Noc. Dyspnea Gastrointestinal: Denies: Nausea, Vomiting, Abdominal Pain Neurological: Reports: Weakness Objective Physical Examination General Exam: Positive: Alert, Cooperative, Mild Distress (Minimal distress) Eye Exam: Positive: Conjunctiva & lids normal; Negative: Sclera icteric, Ptosis ENT Exam: Positive: Atraumatic, Mucous membr. moist/pink Neck Exam: Positive: Supple; Negative: JVD Chest Exam: Positive: Clear to auscultation, Normal air movement, Rhonchi (Mild rhonchi on right lower lobe region); Negative: Rales, Wheezing Heart Exam: Positive: Tachycardic, Normal S1, Normal S2; Negative: Murmurs Abdomen Exam: Positive: Normal bowel sounds, Soft; Negative: Tenderness (Hypoactive but aus. in all 4 quadrants) Extremity Exam: Negative: Edema, Tenderness, Swelling Skin Exam: Positive: Nl turgor and temperature Neuro Exam: Positive: Normal Speech (+4/5 in right upper extremity. +5/5 in b/l lower extremities); Negative: Strength at 5/5 X4 ext (+3/5 in left upper extremity and b/l lower extremities. +5/5 in right upper extremity) Psych Exam: Positive: Mental status NL, Anxiety (Mild) Assessment /Plan Problems (1) Community acquired pneumonia Status: Acute Response to Treatment: Improving Problem Text: 11/07 Confirmed with nursing patient on IV Ceftriaxone day 12/01 (s/p 1 day Cefuroxime IV), and IV Azithromycin d 12/25; . Sputum culture pending; gram stain mod for gram pos rods with few gram(-) cari and gram(+) cocci in clusters and chains. Likely switch to PO antibiotics when sputum cx returns as symptoms and CRP improving. PT recommends d/c home when stable. Leukocytosis. Patient afebrile. Improving cough and right sided pleuritic pain. CXR on 11/05/18 showed right lower lobe infiltrate. Sputum culture ordered. IV Ceftraixone 12/02(s/p 1 day Cefuroxime IV) and Azithromycin day 11/27. ESR and CRP both elevated; CRP at 22.9. Continue to follow up with CBC and CRP. Vital signs and respiratory tx as scheduled (2) Pleurisy Status: Acute Response to Treatment: Improving Problem Text: Likely / to community acquired pneumonia. Right sided pleuritic chest pain improving. On IV Ceftraixone(s/p 1 day IV Cefuroxime) and Azithromycin. Sputum cx pending; gram stain showed mod gram+ cari, few gram (-) rods and gram(+) cocci in clusters an chains . CRP improving, continue to trend CRP and CBC. Vital signs as scheduled (3) COPD (chronic obstructive pulmonary disease) Status: Chronic Response to Treatment: Stable, Controlled Problem Text: Continue home oxygen NC 3L. Pt denies SOB; infrequent productive cough likely to PNA. No signs and symptoms of exacerbation. Sat well on NC. Respiratory treatment and vital signs as scheduled. (4) Depression Status: Chronic Response to Treatment: Stable, Controlled Problem Text: Continue home medication paroxetine (5) Hypothyroidism Status: Chronic Response to Treatment: Stable Problem Text: Continue home medication levothyroxine (6) Migraine without aura Status: Chronic Response to Treatment: Stable, Controlled Problem Text: Continue home med Topramax. Continue to monitor the pt (7) Chronic pain syndrome Status: Chronic Response to Treatment: Stable Problem Text: Continue home med gabapentin, Meloxicam, and oxycodone. Continue to monitor (8) DVT prophylaxis Status: Acute Response to Treatment: Stable, Controlled Problem Text: Continue SCD Plan/VTE VTE Prophylaxis Ordered?: Yes (SCD) Plan Diet: Continue Current Activity: Continue Current Diagnostics: Repeat Labs in AM, Obtain Cultures Anticipated Discharge: Home (Improving. Likely switch to PO antibiotics tmrw when sputum cx returns and d/c to home) Family Medicine Attending Note: I was present on site to supervise ISRAEL Davis. We discussed the history and exam. I confirmed the patterson elements during my [id number] encounter with the patient. We conferred on the assessment and plan; I agree with the note as documented. Ms. Reza is making good progress. I anticipate possible discharge tomorrow. 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 Likely switch to PO antibiotics when sputum cx returns and d/c to home tmrw; plan to complete 10 days of Cephalosporin and 5 days of azithromycin in total VS, I&O, 24H, Fishbone Vital Signs/I&O Vital Signs Date Time Temp Pulse Resp B/P (MAP) Pulse Ox O2 Delivery O2 Flow Rate FiO2 11/07/18 10:30 18 Nasal Cannula 3.0 11/07/18 06:00 98.7 108 132/74 (93) 95 I&O- Last 24 Hours up to 6 AM 11/07/18 05:59 Intake Total 1505 ml Output Total 1850 ml Balance -345 ml Laboratory Data 24H LABS Laboratory Tests 2 11/07/18 06:24: Nucleated Red Blood Cells % (auto) 0.0 11/07/18 06:29: Anion Gap 5L, Glomerular Filtration Rate > 60.0, Blood Urea Nitrogen 18, Creatinine 0.73, Sodium Level 141, Potassium Level 3.9, Chloride Level 107, Carbon Dioxide Level 29, Calcium Level 8.6, C-Reactive Protein, Quantitative 9.86H CBC/BMP Laboratory Tests 11/07/18 06:24 Red Blood Count 3.92 L, Mean Corpuscular Volume 84.9, Mean Corpuscular Hemoglobin 26.5 L, Mean Corpuscular Hemoglobin Concent 31.2 L, Red Cell Distribution Width 15.0 H 11/07/18 06:29 Calcium Level 8.6 Microbiology Microbiology 11/06/18 Blood Culture - Preliminary, Resulted No growth after 24 hours . All specim... 11/05/18 Blood Culture - Preliminary, Resulted No growth after 24 hours . All specim... 11/06/18 Gram Stain - Final, Resulted 11/06/18 Sputum Culture, Resulted Pending ERIC TIMMONS DO Nov 07, 2018 11:32 Antonio Jones MD Nov 10, 2018 18:50
[2018-11-07] MEDS: OMEPRAZOLE 20 MG CAP PO SCH (12:53)
[2018-11-07] MEDS: VARENICLINE 1 MG TABLET PO SCH ×2 (12:54→20:33)
[2018-11-07 14:00] VITALS: BP 111/62
[2018-11-07 20:00] VITALS: BP 118/72
[2018-11-07] MEDS: AZITHROMYCIN INJ 500 MG, VIAL MATE ADAPTER 1 EACH in D5W 250 ML IV SCH (20:33)
[2018-11-07] MEDS: PARoxetine 20 MG TAB PO SCH (20:33)
[2018-11-07] MEDS ORDERED: tiZANidine 4 MG TAB PO SCH (21:00)
[2018-11-08] MEDS: LEVOTHYROXINE 25MCG TABLET (0.025MG) PO SCH (05:38)
[2018-11-08 05:53] VITALS: BP 129/70
[2018-11-08 06:53] LABS: HEMATOCRIT 32.7 % (36.0-47.0); HEMOGLOBIN 10.1 g/dl (12.0-15.5); MEAN CORPUSCULAR HEMOGLOBIN 26.3 pg (27.0-33.0); MEAN CORPUSCULAR HGB CONC 30.9 g/dl (32.0-36.5); MEAN CORPUSCULAR VOLUME 85.2 fl (80.0-96.0); PLATELET COUNT, AUTOMATED 306 10^3/uL (150-450); RED BLOOD COUNT 3.84 10^6/uL (4.00-5.40); WHITE BLOOD COUNT 7.8 10^3/uL (4.0-10.0)
[2018-11-08 07:20] LABS: BLOOD UREA NITROGEN 19 MG/DL (7-18); C REACTIVE PROTEIN QUANTITATIV 5.09 MG/DL (0.00-0.30); CALCIUM LEVEL 8.4 MG/DL (8.5-10.1); CARBON DIOXIDE LEVEL 29 MEQ/L (21-32); CHLORIDE LEVEL 105 MEQ/L (98-107); CREATININE FOR GFR 0.79 MG/DL (0.55-1.30); GLOMERULAR FILTRATION RATE > 60.0 (>51); GLUCOSE, FASTING 93 MG/DL (70-100); POTASSIUM SERUM 3.7 MEQ/L (3.5-5.1); SODIUM LEVEL 141 MEQ/L (136-145)
[2018-11-08] MEDS: TIOTROPIUM INHALER/CAPSULE (SPIRIVA) INH SCH (08:00)
[2018-11-08] MEDS: ADVAIR HFA 230/21MCG INHALER INH SCH (08:22)
[2018-11-08] MEDS: MELOXICAM (MOBIC) 7.5 MG TAB PO SCH (08:54)
[2018-11-08] MEDS: ATORVASTATIN 20 MG TAB PO SCH (08:54)
[2018-11-08] MEDS: VARENICLINE 1 MG TABLET PO SCH (08:54)
[2018-11-08] MEDS: GABAPENTIN 300 MG CAP PO SCH (08:54)
[2018-11-08] MEDS: OMEPRAZOLE 20 MG CAP PO SCH (08:54)
[2018-11-08] MEDS: TOPIRAMATE (TopAMAX) 100 MG TAB PO SCH (08:54)
[2018-11-08] MEDS: oxyCODONE 5MG TAB PO PRN (08:55)
[2018-11-08] MEDS: cefTRIAXone SOD 1 GM in D5W MINI-BAG PLUS 50 ML IV SCH (08:55)
--- NOTE | 2018-11-08 09:52 | IPNPDOC ---
Subjective Date Seen The patient was seen on 11/08/18. Objective Physical Examination General Exam: Positive: Alert, Cooperative, Mild Distress (Minimal distress) Eye Exam: Positive: Conjunctiva & lids normal; Negative: Sclera icteric, Ptosis ENT Exam: Positive: Atraumatic, Mucous membr. moist/pink Neck Exam: Positive: Supple; Negative: JVD Chest Exam: Positive: Clear to auscultation, Normal air movement, Rhonchi (Mild rhonchi on right lower lobe region); Negative: Rales, Wheezing Heart Exam: Positive: Tachycardic, Normal S1, Normal S2; Negative: Murmurs Abdomen Exam: Positive: Normal bowel sounds, Soft; Negative: Tenderness (Hypoactive but aus. in all 4 quadrants) Extremity Exam: Negative: Edema, Tenderness, Swelling Skin Exam: Positive: Nl turgor and temperature Neuro Exam: Positive: Normal Speech (+4/5 in right upper extremity. +5/5 in b/l lower extremities); Negative: Strength at 5/5 X4 ext (+3/5 in left upper extremity and b/l lower extremities. +5/5 in right upper extremity) Psych Exam: Positive: Mental status NL, Anxiety (Mild) Assessment /Plan Problems (1) Community acquired pneumonia Status: Acute Response to Treatment: Improving Problem Text: 11/07 Confirmed with nursing patient on IV Ceftriaxone day 12/29 (s/p 1 day Cefuroxime IV), and IV Azithromycin d 01/25; . Sputum culture pending; gram stain mod for gram pos rods with few gram(-) cari and gram(+) cocci in clusters and chains. Likely switch to PO antibiotics when sputum cx returns as symptoms and CRP improving. PT recommends d/c home when stable. Discussed with bacteriology although final cx not returned, there's yeast like organism Leukocytosis. Patient afebrile. Improving cough and right sided pleuritic pain. CXR on 11/05/18 showed right lower lobe infiltrate. Sputum culture ordered. IV Ceftraixone /10(s/p 1 day Cefuroxime IV) and Azithromycin day /. ESR and CRP both elevated; CRP at 22.9. Continue to follow up with CBC and CRP. Vital signs and respiratory tx as scheduled (2) Pleurisy Status: Acute Response to Treatment: Improving Problem Text: Likely 2/2 to community acquired pneumonia. Right sided pleuritic chest pain improving. On IV Ceftraixone(s/p 1 day IV Cefuroxime) and Azith romycin. Sputum cx pending; gram stain showed mod gram+ cari, few gram (-) rods and gram(+) cocci in clusters an chains . CRP improving, continue to trend CRP and CBC. Vital signs as scheduled (3) COPD (chronic obstructive pulmonary disease) Status: Chronic Response to Treatment: Stable, Controlled Problem Text: Continue home oxygen [place] 3L. Pt denies SOB; infrequent productive cough likely to PNA. No signs and symptoms of exacerbation. Sat well on NC. Respiratory treatment and vital signs as scheduled. (4) Depression Status: Chronic Response to Treatment: Stable, Controlled Problem Text: Continue home medication paroxetine (5) Hypothyroidism Status: Chronic Response to Treatment: Stable Problem Text: Continue home medication levothyroxine (6) Migraine without aura Status: Chronic Response to Treatment: Stable, Controlled Problem Text: Continue home med Topramax. Continue to monitor the pt (7) Chronic pain syndrome Status: Chronic Response to Treatment: Stable Problem Text: Continue home med gabapentin, Meloxicam, and oxycodone. Continue to monitor (8) DVT prophylaxis Status: Acute Response to Treatment: Stable, Controlled Problem Text: Continue SCD Plan/VTE VTE Prophylaxis Ordered?: Yes (SCD) Plan Diet: Continue Current Activity: Continue Current Diagnostics: Repeat Labs in AM, Obtain Cultures Anticipated Discharge: Home (Improving. Likely switch to PO antibiotics tmrw when sputum cx returns and d/c to home) VS, I&O, 24H, Fishbone Vital Signs/I&O Vital Signs Date Time Temp Pulse Resp B/P (MAP) Pulse Ox O2 Delivery O2 Flow Rate FiO2 11/08/18 08:55 18 Nasal Cannula 3.0 11/08/18 05:53 97.2 92 129/70 (89) 92 I&O- Last 24 Hours up to 6 AM 11/08/18 06:00 Intake Total 660 ml Output Total 1350 ml Balance -690 ml Laboratory Data 24H LABS Laboratory Tests 2 11/08/18 06:40: Nucleated Red Blood Cells % (auto) 0.0, Anion Gap 7L, Glomerular Filtration Rate > 60.0, Blood Urea Nitrogen 19H, Creatinine 0.79, Sodium Level 141, Potassium Level 3.7, Chloride Level 105, Carbon Dioxide Level 29, Calcium Level 8.4L, C- Reactive Protein, Quantitative 5.09H CBC/BMP Laboratory Tests 11/08/18 06:40 Red Blood Count 3.84 L, Mean Corpuscular Volume 85.2, Mean Corpuscular Hemoglobin 26.3 L, Mean Corpuscular Hemoglobin Concent 30.9 L, Red Cell Distribution Width 15.3 H, Calcium Level 8.4 L Microbiology Microbiology 11/06/18 Blood Culture - Preliminary, Resulted No growth after 24 hours . All specim... 11/05/18 Blood Culture - Preliminary, Resulted No Growth after 48 hours. All Specime... 11/06/18 Gram Stain - Final, Resulted 11/06/18 Sputum Culture, Resulted Pending ERIC TIMMONS DO Nov 08, 2018 09:52
[2018-11-08] MEDS ORDERED: CEFD1CAP8 PO (11:04)
[2018-11-08] MEDS ORDERED: AZIT500T2 PO (11:05)
--- NOTE | 2018-11-08 18:54 | DS.PDOC ---
Discharge Summary General Date of Admission Nov 05, 2018 at 18:17 Date of Discharge 11/08/18 Primary Care Physician: Tim Spencer MD Attending Physician: Antonio Jones MD Discharge Summary PROCEDURES PERFORMED DURING STAY: None. ADMITTING DIAGNOSES: 1. Community Acquired Pneumonia 2. Pleurisy DISCHARGE DIAGNOSES: 1. Community acquired pneumonia 2. Pleurisy 3. COPD 4. Depression 5. Hypothyroidism 5. Migraine without aura 6. Chronic pain syndrome COMPLICATIONS/CHIEF COMPLAINT: Cap; Pleurisy. HISTORY OF PRESENT ILLNESS: Patient is a 58 yo female with PMH on COPD on 24 hr 3L nasal cannula, depression, HTN, and chronic pain syndrome presents to [facility] with sharp right sided pleuritic chest pain, fever, chills HOSPITAL COURSE: Patient's CXR showed right lower lobe infiltrate. She was given 1 dose of IV Cefuroxime and then started on IV Ceftriaxone and IV Azithromycin. Her CRP and leukocytosis continue to improve. Fever and chills resolved 2nd of of admission. Her right sided pleuritic chest pain, SOB, and productive cough gradually improved then resolved. She expressed the desire to be put back on home med PPI and Chantix for heart burn and craving symptoms, and she was put on Omeprazole and Chantix. Pt reported generalized weakness and lower extremity weakness but was improved as well; she was determined by PT to be safe to d/c to home. Sputum Cx showed gram(+) rods with few gram(-) cari and gram(+) cocci in clusters and chain; as pt had no resp symptoms along with improving CRP, she was d/c home with PO Cefdinir for 6 days and Azithromycin PO for 2 days. She will then f/u with PCP in 7 days DISCHARGE MEDICATIONS: Please see below. ALLERGIES: Please see below. PHYSICAL EXAMINATION ON DISCHARGE: VITAL SIGNS: Please see below. GENERAL: A&OX3, not in acute distress HEENT: Head normocephalic, atraumatic. No conjunctiva injection or scleral icterus. NECK: Supple CARDIOVASCULAR EXAMINATION: Mildly tachycardic, regular rhythm, no murmur, S1 and S2 normal RESPIRATORY EXAMINATION: CTA b/l, no rales, wheezing, or rhonchi ABDOMINAL EXAMINATION: Bowel sounds aus in all 4 quadrants, Soft EXTREMITIES: No edema or swelling SKIN: Nl turgor and temperature NEUROLOGICAL EXAMINATION: +5/5 strength in all extremities PSYCHIATRIC EXAMINATION: Mental status wnl. Memory and cognitive fxn grossly intact. Mood appro to situation LABORATORY DATA: Please see below. IMAGING: CXR showed COPD and Right lower lobe infiltrate. PROGNOSIS: Good ACTIVITY: As tolerated. DIET: 2g sodium diet DISPOSITION: 01 Home, Self-Care. DISCHARGE PLAN AND INSTRUCTIONS: 1. Patient will follow up with PCP in 7 days 2. Take Cefdinir 300mg BID for 6 days and Azithromycin PO 500mg for 2 days to complete antibiotics coverage for pneumonia ITEMS TO FOLLOWUP ON ON OUTPATIENT: 1. Community Acquired pneumonia 2. Sputum culture 3. Pleurisy DISCHARGE CONDITION: Stable. TIME SPENT ON DISCHARGE: Greater than 15 minutes. Vital Signs/I&Os Vital Signs Date Time Temp Pulse Resp B/P (MAP) Pulse Ox O2 Delivery O2 Flow Rate FiO2 11/08/18 09:49 18 Nasal Cannula 3.0 11/08/18 05:53 97.2 92 129/70 (89) 92 I&O- Last 24 Hours up to 6 AM 11/08/18 06:00 Intake Total 660 ml Output Total 1350 ml Balance -690 ml Laboratory Data Labs 24H Laboratory Tests 2 11/08/18 06:40: Nucleated Red Blood Cells % (auto) 0.0, Anion Gap 7L, Glomerular Filtration Rate > 60.0, Blood Urea Nitrogen 19H, Creatinine 0.79, Sodium Level 141, Potassium Level 3.7, Chloride Level 105, Carbon Dioxide Level 29, Calcium Level 8.4L, C- Reactive Protein, Quantitative 5.09H CBC/BMP Laboratory Tests 11/08/18 06:40 Red Blood Count 3.84 L, Mean Corpuscular Volume 85.2, Mean Corpuscular Hemoglobin 26.3 L, Mean Corpuscular Hemoglobin Concent 30.9 L, Red Cell Distribution Width 15.3 H, Calcium Level 8.4 L Microbiology Microbiology 11/06/18 Blood Culture - Preliminary, Resulted No Growth after 48 hours. All Specime... 11/05/18 Blood Culture - Preliminary, Resulted No Growth after 72 hours. All specime... 11/06/18 Gram Stain - Final, Resulted 11/06/18 Sputum Culture, Resulted Pending Discharge Medications Scheduled (Dexilant) 60 Mg Cap, 60 MG PO DAILY, (Reported) (Incruse Ellipta) 62.5 Mcg/Inh Inh, 1 PUFF INH DAILY, (Reported) Atorvastatin Calcium (Atorvastatin Calcium) 20 Mg Tab, 20 MG PO DAILY, (Reported) Azithromycin (Azithromycin) 500 Mg Tab, 500 MG PO DAILY Cefdinir (Cefdinir) 300 Mg Cap, 300 MG PO Q12H Gabapentin (Gabapentin) 600 Mg Tab, 600 MG PO TID, (Reported) Levothyroxine Sodium (Synthroid) 25 Mcg Tab, 25 MCG PO DAILY, (Reported) Linaclotide Base (Linzess) 145 Mcg Cap, 145 MG PO BID, (Reported) Meloxicam (Meloxicam) 15 Mg Tab, 15 MG PO DAILY, (Reported) Paroxetine (Paroxetine HCl) 40 Mg Tab, 40 MG PO QHS, (Reported) Tizanidine HCl (Tizanidine HCl) 2 Mg Tab, 2 MG PO QHS, (Reported) Topiramate (Topiramate) 100 Mg Tab, 100 MG PO QAM, (Reported) Topiramate (Topiramate) 100 Mg Tab, 50 MG PO QPM, (Reported) Varenicline Tartrate (Chantix Continuing Month) 1 Mg Kiko, 1 MG PO BID, (Reported) Scheduled PRN Albuterol Sulfate (Albuterol Sulfate) 2.5 Mg/3 Ml Nebu, 1 DOSE INH Q4H PRN for SHORTNESS OF BREATH, (Reported) Oxycodone HCl (Oxycodone HCl) 5 Mg Tab, 5 MG PO BID PRN for PAIN, (Reported) Allergies Coded Allergies: No Known Drug Allergy (Verified Allergy, Unknown, 11/05/18) ATTENDING NOTE Family Medicine Attending Note: I was present on site to supervise ISRAEL Davis. We discussed the history and exam. I confirmed the patterson elements during my [id number] encounter with the patient. We conferred on the assessment and plan; I agree with the note as documented. (chair) ERIC TIMMONS DO Nov 08, 2018 18:54 Antonio Jones MD Nov 10, 2018 18:54
== END 2018-11-08 13:47 | disposition home or self-care (01) | DRG 195 ==
LOC: M ED 15:26 → M ED INP 18:17 → M MS4PR 20:38
PROVIDERS: ADMIT Internal Medicine; ATTEND Family Medicine
DX: J18.9 Pneumonia, unspecified organism (principal); R09.1 Pleurisy; F32.9 Major depressive disorder, single episode, unspecified; J44.9 Chronic obstructive pulmonary disease, unspecified; G89.29 Other chronic pain; G43.909 Migraine, unspecified, not intractable, without status migrainosus; E03.9 Hypothyroidism, unspecified; I10 Essential (primary) hypertension; Z79.899 Other long term (current) drug therapy; Z99.81 Dependence on supplemental oxygen; E78.5 Hyperlipidemia, unspecified; Z96.652 Presence of left artificial knee joint; K21.9 Gastro-esophageal reflux disease without esophagitis; Z87.891 Personal history of nicotine dependence

== ENCOUNTER → 2019-01-28 | Outpatient (CLI) | payer MEDICARE, MEDICAID ==
[~2019-01-28] MED LIST changes: -/ADVA50050; -/ADVA50050 INH; -/MOXI40TA; -/MOXI40TA OR; -/PANT40TA; -/TIOT18INH; -/TIOT18INH INH; -/WARF25TA PO; +ADVA1AER2; +ADVA1AER2 INH; +AVEL1TAB2; +AVEL1TAB2 OR; +AZIT500T2 PO; +CEFD1CAP8 PO; +CHAN1PAK13 PO; +COUM1TAB18 PO; -DULO30CA PO; +DULO30CA9 PO; +GABA600T4 PO; +INCR1INH INH; +LEVO25TA5 PO; +LINZ145C PO; +MELO15TA28 PO; +OXYC-517 PO; +PARO40TA2 PO; +PROT1TAB2; +SPIR1CAP; +SPIR1CAP INH; +TIZA2TA PO; +TOPI100T9 PO
== END ==
LOC: M PAIN 14:00
PROVIDERS: ATTEND Nurse Practitioner Family
DX: M50.93 Cervical disc disorder, unspecified, cervicothoracic region (principal); G89.29 Other chronic pain; J44.9 Chronic obstructive pulmonary disease, unspecified; Z86.59 Personal history of other mental and behavioral disorders; E78.5 Hyperlipidemia, unspecified; I10 Essential (primary) hypertension; K21.9 Gastro-esophageal reflux disease without esophagitis; G43.009 Migraine without aura, not intractable, without status migrainosus; Z96.652 Presence of left artificial knee joint; Z87.891 Personal history of nicotine dependence; Z79.51 Long term (current) use of inhaled steroids; Z79.1 Long term (current) use of non-steroidal anti-inflammatories (NSAID); Z79.891 Long term (current) use of opiate analgesic; Z79.899 Other long term (current) drug therapy

== ENCOUNTER → 2019-02-18 | Outpatient (REF) | payer MEDICARE, MEDICAID ==
[2019-02-18 19:25] LABS: HEMATOCRIT 41.2 % (36.0-47.0); HEMOGLOBIN 12.4 g/dl (12.0-15.5); MEAN CORPUSCULAR HEMOGLOBIN 28.2 pg (27.0-33.0); MEAN CORPUSCULAR HGB CONC 30.1 g/dl (32.0-36.5); MEAN CORPUSCULAR VOLUME 93.8 fl (80.0-96.0); PLATELET COUNT, AUTOMATED 262 10^3/uL (150-450); RED BLOOD COUNT 4.39 10^6/uL (4.00-5.40); WHITE BLOOD COUNT 11.5 10^3/uL (4.0-10.0)
[2019-02-18 19:36] LABS: FREE T4 1.21 NG/DL (0.76-1.46); THYROID STIMULATING HORMONE 2.5 uIU/ML (0.358-3.740)
== END ==
LOC: M SFHCADAM 13:24
PROVIDERS: ATTEND Physician Assistant Medical
DX: D50.8 Other iron deficiency anemias (principal); E03.9 Hypothyroidism, unspecified

== ENCOUNTER → 2019-05-14 | Outpatient (CLI) | payer MEDICARE, MEDICAID ==
--- NOTE | 2019-05-28 00:48 | ECWPNPC ---
PATIENT NAME: ARTHUR ALSTON : 1960 GENDER: FEMALE VISIT DATE: 05/14/2019 DISCHARGE DATE: 05/14/19 1247 VISIT LOCKED DATE TIME: PHYSICIAN: HARSH RICHTER RESOURCE: HARSH RICHTER REASON FOR APPOINTMENT 1. 3 MONTHS HISTORY OF PRESENT ILLNESS HISTORY OF PRESENT ILLNESS: HERE FOR F/U OF CHRONIC NECK PAIN.HAS BEEN FOLLOWED AT OUR PAIN CLINIC FOR SEVERAL YEARS.ON CHRONIC MEDICATION TO INCIUDE OXYCODONE 5MG BID ,GABAPENTIN ,TIZANIDINE AND MOBIC.FINDS CURRENT MEDICATION EFFECTIVE AT REDUCING PAIN AND KEEPING HER COMFORTABLE.RATING PAIN VAS 7/10. PAIN THE PATIENT DESCRIBES THE PAIN... THE PATIENT DESCRIBES THE PAIN... THE PATIENT DESCRIBES THE PAIN... 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 PATIENT ON 3L OXY-GO-POC TAKING TOPIRAMATE 100 MG TABLET 1 TAB QAM; 1/2 TAB QHS ORALLY DAILY TAKING ALBUTEROL SULFATE (2.5 MG/3ML) 0.083% NEBULIZATION SOLUTION 3 ML NEEDED INHALATION EVERY 4 HOURS NEEDED FOR SOB TAKING DULOXETINE HCL 60 MG CAPSULE DELAYED RELEASE PARTICLES 1 CAPSULE ORALLY ONCE A DAY TAKING ADVAIR DISKUS 500-50 MCG/DOSE AEROSOL POWDER BREATH ACTIVATED INHALATION TAKING PAROXETINE HCL 40 MG TABLET TAKE ONE TABLET BY MOUTH EVERY MORNING TAKING CHANTIX CONTINUING MONTH DIANELYS 1 MG TABLET 1 TABLET ORALLY TWICE A DAY TAKING OLANZAPINE 5 MG TABLET 1 TABLET ORALLY ONCE A DAY TAKING TIZANIDINE HCL 2 MG TABLET 1 TABLET NEEDED ORALLY BEFORE BEDTIME TAKING MELOXICAM 15 MG TABLET 1 TABLET ORALLY ONCE A DAY TAKING LINZESS 290 MCG CAPSULE 1 CAPSULE ORALLY ONCE A DAY TAKING LIPITOR 20 MG TABLET 1 TABLET ORALLY ONCE A DAY TAKING GABAPENTIN 600 MG TABLET 1 TABLET ORALLY THREE TIMES A DAY TAKING SYNTHROID 25 MCG TABLET 1 TABLET ON AN EMPTY STOMACH IN THE MORNING ORALLY ONCE A DAY TAKING OXYCODONE HCL 5 MG TABLET 1 TABLET ORALLY EVERY 8-12 HOURS PRN PAIN MDD=2 DISCONTINUED DULOXETINE HCL 60 MG CAP 1 CAP(S) ORALLY ONCE A DAY MEDICATION LIST REVIEWED AND RECONCILED WITH THE PATIENT PAST MEDICAL HISTORY COPD CHRONIC OBSTRUCTIVE BRONCHITIS, EMPHYSEMA, DR TREJO CHRONIC O2 3 LPM CHRONIC NECK PAIN - PAIN CLINIC DEPRESSION HYPERLIPIDEMIA HYPERTENSION, 07/05 EKG NSR GERD STRESS URINARY INCONTINENCE H/O ABN MAMMO 07/06, BX 09/05 NEG, AGUERO DUE FOR REPEAT MAMMO EMANUEL DEP 08/02 ECHO, NL EXCEPT MILD RVH PINEAL CYST- NEURO, MRI 05/08 WITHOUT CHANGE. 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 SURGICAL HISTORY CERVICAL SPINE FUSION - WITH RODS AND BONE GRAFT. 1997 LEFT TOTAL KNEE REPLACEMENT- NCOG 07/05 TUBAL LIGATION COLONOSCOPY 08/05 POOR PREP, REPEAT 10/05, SUBOPTIMAL PREP, REPEAT IN 1 YEAR, NBIH 08/05, 10/05 FAMILY HISTORY FATHER: , DIAGNOSED WITH OTHER MOTHER: ALIVE, CANCER PATERNAL GRAND FATHER: PATERNAL GRAND MOTHER: MATERNAL GRAND FATHER: MATERNAL GRAND MOTHER: 2 BROTHER(S) , 1 SISTER(S) - HEALTHY. 2 SON(S) , 1 DAUGHTER(S) . FATHER: CIRROHSIS OF THE LIVER\\\\NMOTHER: COLON CA, HAS A COLOSTOMY BAG\\\\NBROTHER: HTN\\\\NSON: AT 23 \\\\N. SOCIAL HISTORY GENERAL: TOBACCO USE ARE YOU A:FORMER SMOKER HAS QUIT > 1 YEAR, REMAINS ON CHANTIX HOW LONG HAS IT BEEN SINCE YOU LAST SMOKED?1-5 YEARS HIV / HEP-C SCREENING HIV TEST OFFERED TO PATIENT:YES DATE OFFERED:06/29/2017 TEST ACCEPTED:NO HEP-C TEST OFFERED TO PATIENT:YES DATE OFFERED:06/29/2017 REASON:PATIENT DECLINED TEST ACCEPTED:NO REASON:PATIENT DECLINED EDUCATION LEVEL OF EDUCATION:FINISHED HIGH SCHOOL DIET: REGULAR. LANGUAGE LANGUAGES SPOKEN:DANISH NEW PATIENT PAIN DIARY TODAY'S VISIT NOTES, FROM 0-10, WHAT LEVEL IS YOUR PAIN TODAY? 0. BMI CARE GOAL FOLLOW-UP ABOVE NORMAL BMI FOLLOW-UPDIETARY MANAGEMENT EDUCATION, GUIDANCE, AND COUNSELING RECREATIONAL DRUG USE DRUG USE?NO EXERCISE: NO REGULAR EXERCISE. LEARNING 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 LUNG CANCER SCREENING SMOKING STATUS:FORMER SMOKER PAIN CLINIC PFS, CLERGY, PUBLIC HEALTH REFERRALS PFS REFERRAL NEEDED?NO CLERGY REFERRAL NEEDED?NO PUBLIC HEALTH REFERRAL NEEDED?NO WAS THE PROVIDER NOTIFIED OF ANY PERTINENT INFO?NO HAS THE PATIENT BEEN EDUCATED REGARDING HIS/HER PLAN OF CARE?YES HAS THE PATIENT BEEN EDUCATED REGARDING PAIN, THE RISK FOR PAIN, THE IMPORTANCE OF EFFECTIVE PAIN MANAGEMENT, AND THE PAIN ASSESSMENT PROCESS?YES LATEX QUESTIONNAIRE LATEX ALLERGY : HAVE YOU EVER DEVELOPED ANY TYPE OF REACTION AFTER HANDLING LATEX PRODUCTS SUCH RUBBER GLOVES, CONDOMS, DIAPHRAGMS, BALLOONS, SOCKS, OR UNDERWEAR?NO LATEX ALLERGY : HAVE YOU EVER DEVELOPED ANY TYPE OF REACTION DURING OR AFTER DENTAL APPOINTMENT, VAGINAL/RECTAL EXAMINATION, SURGICAL PROCEDURE, OR ANY OTHER EXPOSURE?NO DATE ASKED : 01/28/2019 LATEX RISK : HAVE YOU EVER HAD ANY DIFFICULTY BREATHING OR HIVES AFTER EATING OR HANDLING ANY FRUITS, OR VEGETABLES; SUCH KIWI, BANANAS, STONE FRUITS, OR CHESTNUTSNO LATEX RISK : DO YOU HAVE A PREVIOUS PERSONAL HISTORY OF MORE THAN NINE SURGERIES, SPINA BIFIDA, OR REPEATED CATHERIZATIONS? NO LATEX RISK : ARE YOU FREQUENTLY EXPOSED TO LATEX PRODUCTS IN YOUR OCCUPATION?NO CAFFEINE CAFFEINE USE?YES COFFEE DAILY ADVANCE DIRECTIVE ADVANCE DIRECTIVE DISCUSSED WITH PATIENT:YES PT HAS NO ADVANCED DIRECTIVES, DECLINES INFORMATION OR ASSISTANCE AT THIS TIME YAZIDISM [id number] NONE MARITAL STATUS: . ALCOHOL SCREENING DID YOU HAVE A DRINK CONTAINING ALCOHOL IN THE PAST YEAR?YES HOW OFTEN DID YOU HAVE SIX OR MORE DRINKS ON ONE OCCASION IN THE PAST YEAR?NEVER (0 POINTS) HOW MANY DRINKS DID YOU HAVE ON A TYPICAL DAY WHEN YOU WERE DRINKING IN THE PAST YEAR?1 OR 2 (0 POINTS) HOW OFTEN DID YOU HAVE A DRINK CONTAINING ALCOHOL IN THE PAST YEAR?MONTHLY OR LESS (1 POINT) POINTS1 INTERPRETATIONNEGATIVE OCCUPATION: DISABLED. SEXUAL HX HAD SEX IN THE LAST 12 MONTHS (VAGINAL, ORAL, OR ANAL)?NO 12/25/2017 0900 REVIEWED LAS03/27/18 0902 REVIEWED BVREVIEWED WITH PT 06/27/2018 0930 LASREVIEWED WITH PT 10/30/18 1445 LAS. HOSPITALIZATION/MAJOR DIAGNOSTIC PROCEDURE L KNEE REPLACEMENT 07/05 VAGINAL DELIVERIES PNEUMONIA CERVICAL SPINE FUSION 1997 ATYPICAL CP 08/02 ACUTE RESP FAILURE 03/03 SMC- COPD, CAP, PLEURISY 10/2018 REVIEW OF SYSTEMS REVIEWED BY: PROVIDER: HARSH VALADEZ . CONSTITUTIONAL: ANY CHANGE IN YOUR MEDICAL CONDITION? NO . CHILLS NO . FEVER NO . INFECTION: DO YOU HAVE NEW INFECTIONS? NO . DO YOU HAVE HISTORY OF MRSA? NO . MUSCULOSKELETAL: ANY NEW PATTERNS OF PAIN OR NUMBNESS? NO . GASTROENTEROLOGY: ANY NEW CHANGE IN BOWEL CONTROL? NO . GENITOURINARY: ANY NEW CHANGE IN BLADDER CONTROL? NO . IS THERE A CHANCE YOU COULD BE ? NO . HEMATOLOGY/LYMPH: DO YOU TAKE ANY BLOOD THINNERS? (FOR EXAMPLE- COUMADIN, PLAVIX, AGGRENOX, PLATEL, PRADAXA, OR XARELTO) NO . WHEN WAS YOUR LAST DOSE? DATE: TIME: . NEUROLOGY: HAVE YOU FALLEN IN THE PAST 12 MONTHS? NO . ANY NEW EXTREMITY NUMBNESS OR WEAKNESS? NO . CARDIOLOGY: DO YOU HAVE A PACEMAKER OR DEFIBRILLATOR? NO . RESPIRATORY: HAVE YOU BEEN SICK IN THE PAST WEEK? NO . FEVER NO . FLU LIKE SYMPTOMS? NO . COUGH NO . INTEGUMENTARY: DO YOU HAVE ANY RASHES OR OPEN SORES? NO . ALLERGIC/IMMUNO: ARE YOU ALLERGIC TO IV DYE? NO . ANY NEW ALLERGIES? NO . PSYCHIATRIC: DO YOU HAVE THOUGHTS OF HURTING YOURSELF OR SOMEONE ELSE? NO . ARE YOU ABUSED, NEGLECTED, OR IN AN UNSAFE ENVIRONMENT? NO . ENDOCRINOLOGY: ARE YOU DIABETIC? NO . OTHER: DO YOU NEED ANY PRESCRIPTIONS? YES, CUCO . IF YES, PLEASE LIST: ____ . ANY NEW PROBLEMS WITH YOUR MEDICATIONS? NO . WHEN DID YOU LAST EAT? ____ . WHEN DID YOU LAST DRINK? ____ . WHAT DID YOU LAST DRINK? ____ . NAME OF PERSON DRIVING YOU HOME? ____ . DO YOU HAVE ANY OTHER QUESTIONS OR CONCERNS NO . VITAL SIGNS WT 200.8 LBS, HT 64", BMI 34.46 INDEX, BP 128/64 MM HG, HR 119 /MIN, RR 20 /MIN, TEMP 96.5 F, OXYGEN SAT % 93%, NA INITIALS AW 1209, REVIEWED BY: EM. EXAMINATION GENERAL EXAMINATION: GENERALAWAKE,ALERT ,PLEAASANT . PSYCHAFFECT NORMAL . LUNGS:LUNG RCOK ARE CLEAR TO AUSCULTATION BILATERALLY. GOOD MOVEMENT OF AIR . HEART:S1, S2 IN A REGULAR RATE AND RHYTHM. NO SIGNIFICANT MURMURS, RUBS OR GALLOPS NOTED . ASSESSMENTS CERVICAL DISC DISORDER OF CERVICOTHORACIC REGION - M50.93 (PRIMARY) TREATMENT CERVICAL DISC DISORDER OF CERVICOTHORACIC REGION REFILL TIZANIDINE HCL TABLET, 2 MG, 1 TABLET NEEDED, ORALLY, BEFORE BEDTIME, 30 DAYS, 30, REFILLS 5 REFILL MELOXICAM TABLET, 15 MG, 1 TABLET, ORALLY, ONCE A DAY, 30 DAYS, 30 TABLET, REFILLS 5 CONTINUE GABAPENTIN TABLET, 600 MG, 1 TABLET, ORALLY, THREE TIMES A DAY, 30 DAYS, 90 TABLET, REFILLS 5 REFILL OXYCODONE HCL TABLET, 5 MG, 1 TABLET, ORALLY, EVERY 8-12 HOURS PRN PAIN MDD=2, 30 DAY(S), 60, REFILLS 0 NOTES: ISTOP REGISTRY REVIEWED AND DEMONSTRATES COMPLLIANCE. RECENT URINE TOXICOLOGY REVIEWED. NO UNAUTHORIZED MEDICATIONS. NO ILLICIT SUBSTANCES AND PRESCRIBED MEDICATIONS WERE PRESENT. , [facility] NARCOTIC AGREEMENT WAS REVIEWED AND SIGNED TODAY BY THE PATIENT. SEE ATTACHED DOCUMENT FOR FULL DETAILS; SPECIFIC ISSUES WERE REVIEWED: 1) KEEP PAIN MEDS IN THEIR ORIGINAL BOTTLES AND ANY WEEKLY PLANNERS ARE TO BE BROUGHT TO THE PAIN CENTER AT EVERY VISIT. 2) THE PATIENT IS NOT TO INCREASE DOSING OR TIMING OF THEIR PAIN MEDICATION WITHOUT SPECIFIC DIRECTION OF THEIR PAIN CENTERPROVIDER (NOT ER OR OTHER PROVIDERS). 3) ALL PAIN MEDS ARE TO BE KEPT SECURED, IN A LOCKED BOX. 4) NO PAIN MEDS ARE TO BE SHARED WITH ANY OTHER PERSON FOR ANY REASON. 5) NO PAIN MEDS MAY BE TAKEN FROM ANY FRIENDS OR RELATIVES FOR ANY REASON 6) NO MEDS OR SUBSTANCES WHICH ARE NOT LEGAL ARE TO BE USED- NO MARIJUANA, NO COCAINE, AMPHETAMINES, HEROIN, OR OTHERS ARE EVER TO BE USED. 7)URINE TESTING IS DONE TO ACCOUNT FOR MEDS AND SUBSTANCES BEING TAKEN AND WILL BE DONE RANDOMLY., RISKS AND BENEFITS OF NARCOTIC/OPIOD MEDICATIONS WERE REVIEWED WITH PATIENT - THIS INCLUDES BUT IS NOT LIMITED TO RISK OF DEPENDANCE/DEVELOPMENT OF ADDICTION, MOOD DISTURBANCE AND DEPRESSION, OSTEOPOROSIS, HORMONAL AND LABIDAL CHANGES, RESPIRATORY DEPRESSION AND . PATIENT IS ADVISED NOT TO DRIVE OR DRINK ALCOHOL WHILE ON THESE MEDICATIONSPATIENT FORGOT TO BRING OXYCODONE TODAY.RYLEY ADVISED HER TO BRING THIS IN TO EVERY APPOINTMENT PER CLINIC POLICY. PROCEDURE CODES FA211 ESTABILISHED PATIENT [facility] CHARGE DISPOSITION & COMMUNICATION FOLLOW UP 3 MONTHS W JORGE OR MYSELF (REASON: MED MGMNT) ELECTRONICALLY SIGNED BY ALLYSON ONEIL ON 05/27/2019 AT 03:22 PM EDT DISCLAIMER : THIS IS A VISIT SUMMARY EXTRACTED FROM THE [employer] CHART. IT IS NOT A COPY OF THE [employer] PROGRESS NOTE. ELVIA
== END ==
LOC: M PAIN 11:15
PROVIDERS: ATTEND Nurse Practitioner Family
DX: M50.93 Cervical disc disorder, unspecified, cervicothoracic region (principal); G89.29 Other chronic pain; J44.9 Chronic obstructive pulmonary disease, unspecified; Z86.59 Personal history of other mental and behavioral disorders; E78.5 Hyperlipidemia, unspecified; I10 Essential (primary) hypertension; K21.9 Gastro-esophageal reflux disease without esophagitis; R25.1 Tremor, unspecified; G43.009 Migraine without aura, not intractable, without status migrainosus; Z96.652 Presence of left artificial knee joint; Z87.891 Personal history of nicotine dependence; Z79.51 Long term (current) use of inhaled steroids; Z99.81 Dependence on supplemental oxygen; Z79.891 Long term (current) use of opiate analgesic; Z79.899 Other long term (current) drug therapy

== ENCOUNTER → 2019-06-19 | Outpatient (REF) | payer MEDICARE, MEDICAID ==
[2019-06-19 15:29] LABS: BLOOD UREA NITROGEN 17 MG/DL (7-18); CALCIUM LEVEL 8.9 MG/DL (8.5-10.1); CARBON DIOXIDE LEVEL 37 MEQ/L (21-32); CHLORIDE LEVEL 101 MEQ/L (98-107); CREATININE FOR GFR 0.76 MG/DL (0.55-1.30); GLOMERULAR FILTRATION RATE > 60.0 (>51); GLUCOSE, FASTING 131 MG/DL (70-100); SODIUM LEVEL 140 MEQ/L (136-145)
== END ==
LOC: M LAB REF 14:50
PROVIDERS: ATTEND Internal Medicine Pulmonary Disease
DX: J44.9 Chronic obstructive pulmonary disease, unspecified (principal)

== ENCOUNTER → 2019-07-04 | Outpatient (REF) | payer MEDICARE, MEDICAID ==
[2019-07-04 19:32] LABS: BLOOD UREA NITROGEN 16 MG/DL (7-18); CARBON DIOXIDE LEVEL 33 MEQ/L (21-32); CHLORIDE LEVEL 98 MEQ/L (98-107); CREATININE FOR GFR 0.89 MG/DL (0.55-1.30); GLOMERULAR FILTRATION RATE > 60.0 (>51); GLUCOSE, FASTING 177 MG/DL (70-100); POTASSIUM SERUM 4.3 MEQ/L (3.5-5.1); SODIUM LEVEL 140 MEQ/L (136-145)
== END ==
LOC: M LABDRWAD 18:47 → M LAB REF 18:47
PROVIDERS: ATTEND Internal Medicine Pulmonary Disease
DX: J44.9 Chronic obstructive pulmonary disease, unspecified (principal)

== ENCOUNTER 2019-08-13 14:19 | Day surgery (SDC) | payer MEDICARE, MEDICAID ==
[~2019-08-13] VITALS: Ht 167.6 cm; Wt 102.6 kg
[~2019-08-13 14:19] MED LIST changes: -ADV500INH INH; -DULO1CAP6 PO; -OLAN5TAB PO; -PRED10TA2 PO; -TRUL3TAB PO; -VENTAER INH
[2019-08-13 14:42] LABS: BASO # 0.1 10^3/uL (0.0-0.2); BASO % 0.3 % (0.0-1.0); EOS # 0.2 10^3/uL (0.0-0.5); EOS % 1.1 % (0.0-3.0); HEMATOCRIT 43.8 % (36.0-47.0); LYMPH # 3.2 10^3/uL (1.5-5.0); LYMPH % 21.1 % (24.0-44.0); MEAN CORPUSCULAR HEMOGLOBIN 30.3 pg (27.0-33.0); MEAN CORPUSCULAR VOLUME 94.8 fl (80.0-96.0); MONO # 1.1 10^3/uL (0.0-0.8); NEUTROPHILS # 10.6 10^3/uL (1.5-8.5); NEUTROPHILS % 69.5 % (36.0-66.0); PLATELET COUNT, AUTOMATED 347 10^3/uL (150-450); RED BLOOD COUNT 4.62 10^6/uL (4.00-5.40); WHITE BLOOD COUNT 15.2 10^3/uL (4.0-10.0)
--- NOTE | 2019-08-13 14:42 | ECGEPIP ---
[facility] - ED Test Date: 2019-08-13 Pat Name: ARTHUR ALSTON Department: Room: - Gender: Female Care Nurse Rn: CT : 1960 Requested By: Bala Angela Order Number: [id number] Reading MD: Loyda Kerns Measurements Intervals [place] Rate: 131 P: 73 [place]: 146 QRS: 73 QRSD: 80 T: 60 QT: 308 QTc: 455 Interpretive Statements SINUS TACHYCARDIA ABNORMAL RHYTHM ECG LOC NSTTW abnormalities Electronically Signed on 08-13-2019 14:41:51 EDT by Loyda Kerns
[2019-08-13] MEDS ORDERED: GLUCAGON FOR INJ 1 MG VIAL (J1610) IV STA (14:45)
[2019-08-13] MEDS ORDERED: TRUL3TAB PO (14:52)
[2019-08-13] MEDS ORDERED: ADV500INH INH (14:52)
[2019-08-13] MEDS ORDERED: DULO1CAP6 PO (14:52)
[2019-08-13] MEDS ORDERED: PRED10TA2 PO (14:52)
[2019-08-13 15:03] LABS: BLOOD UREA NITROGEN 22 MG/DL (7-18); CALCIUM LEVEL 9.4 MG/DL (8.5-10.1); CARBON DIOXIDE LEVEL 39 MEQ/L (21-32); CHLORIDE LEVEL 96 MEQ/L (98-107); CREATININE FOR GFR 0.99 MG/DL (0.55-1.30); GLOMERULAR FILTRATION RATE > 60.0 (>51); GLUCOSE, FASTING 114 MG/DL (70-100); POTASSIUM SERUM 3.5 MEQ/L (3.5-5.1); SODIUM LEVEL 141 MEQ/L (136-145)
--- NOTE | 2019-08-13 15:32 | REP ---
Single view chest: 08/13/2019. Indication: Dyspnea. Comparison: 11/05/2018. Findings: Bibasilar atelectatic changes are present. The lungs remain hyperinflated likely representing sequelae of COPD. No definite pulmonary air space consolidation is detected. There is no evidence of pleural effusion or pneumothorax. The cardiac silhouette is unremarkable. Impression: Bibasilar atelectasis. Electronically Signed by Rohith De DO 08/13/2019 03:25 P
[2019-08-13] MEDS ORDERED: OLAN5TAB PO (16:14)
[2019-08-13] MEDS ORDERED: VENTAER INH (16:14)
[2019-08-13] MEDS ORDERED: SUCCINYLCHOLINE 100 MG/5 ML SYRINGE (J0330) As Ordered ONE (16:34)
[2019-08-13] MEDS ORDERED: LIDOCAINE 2% INJ 100 MG/5 ML SDV (FOR ANES.) As Ordered ONE (16:35)
[2019-08-13] MEDS ORDERED: PROPOFOL 200 MG/20 ML VIAL As Ordered ONE (16:35)
[2019-08-13] MEDS ORDERED: ROCURONIUM BROMIDE 50 MG/5 ML VIAL As Ordered ONE (16:37)
[2019-08-13] MEDS ORDERED: fentaNYL 100 MCG/2 ML INJECTION (J3010) As Ordered ONE (16:37)
--- NOTE | 2019-08-13 16:57 | HPEPDOC ---
General Surgery H&P Date of Admission Aug 13, 2019 Attending Physician: LOTUS FRIAS MD History and Physical CHIEF COMPLAINT: Food choking HISTORY OF PRESENT ILLNESS: Patient was brought in by EMS after she choked on a piece of steak that she was eating roughly at about 2 PM this afternoon. The choking caused her to spit up, exacerbation of coughing and at that time some shortness of breath that has improved since been relieved during her stay in the emergency room but she continues to have discomfort on her throat and not able to swallow her saliva with some drooling consistent with the food still impacted. She reports she has had at least one episode like this that went away after a few hours but was not seen in the emergency room. She has had a long history of esophageal reflux. She had an endoscopy and colonoscopy back in 2016 where she was found nonsevere esophagitis but no signs of esophageal stricture. She has multiple medical problems, she has history of COPD on oxygen, chronic steroids, chronic neck pain. ALLERGIES: Please see below. HOME MEDICATIONS: Please see below. PAST MEDICAL HISTORY: 1. COPD O2 dependent at 3 L nasal cannula. 2. Chronic pain syndrome 3. Depression 4. Hyperlipidemia 5. Hypertension 6. Gastroesophageal reflux disease 7. History of stress urinary incontinence 8. Essential tremors 9. Migraines. PAST SURGICAL HISTORY: 1. Cervical spine fusion rods and bone graft. 2. Left total knee replacement 3. Tubal ligation. PERSONAL/SOCIAL HISTORY: Denies smoking, alcohol use, or recreational drug use. REVIEW OF SYSTEMS: GENERAL: Patient reports she's fairly sedentary, easily get short of breath with minimal effort, O2 dependent. She was in her baseline health prior to this happening this afternoon. NECK: Reports neck pain. CARDIOVASCULAR: Denies chest pain and palpitations. NEUROLOGIC: Denies headache, stroke and transient ischemic attack. PSYCHIATRIC: Reports anxiety and depression. HEMATOLOGY/ONCOLOGY: Patient is not on any anticoagulation. PULMONARY: Patient currently denying any shortness of breath though she did have fits of coughing when she choked on her food. GASTROINTESTINAL: See HPI. PHYSICAL EXAMINATION: VITAL SIGNS: Please see below. GENERAL APPEARANCE: Patient seen sitting up on the stretcher mildly uncomfortable spitting up clear saliva. Awake, alert, oriented. Typical steroids fascies and body habitus HEENT: Oropharyngeal examination shows no obvious visible foreign body/food in her mouth. Slight visible erosion of over the right pillar of her tonsils. CHEST: No chest wall abnormalities. Normal respiratory motion/effort. NECK. Thick neck, no obivious thyromegaly LUNGS: Lung sounds are clear to auscultation bilaterally. No wheezing appreciated. HEART: No chest wall abnormalities. Heart rate and rhythm are regular with no murmurs. EXTREMITIES: Extremities have no deformities. No edema identified. ANCILLARIES: . LABORATORY DATA: Please see below. MICROBIOLOGY: Please see below. IMAGING: . IMPRESSION AND PLAN: Food impaction I was asked to attend to literally poured of food impaction. Her complaint is mostly on her throat. She denies any chest pain or midsternal epigastric discomfort. She clearly is not able to swallow her saliva and has been spitting up clear saliva. I think the obstruction would most likely be in the upper sphincter. I have given Dr. Hook our ENT surgeon compensation expert as most of the time of flexible endoscopy may not be able to visualize the area of the of the upper sphincter well and she may need rigid esophagoscopy which I am not drained or comfortable to do. I have also spoken with anesthesia in terms of general planning for the procedure. Anticipate she will need to stay overnight for monitoring given her baseline COPD. Vital Signs Vital Signs Date Time Temp Pulse Resp B/P (MAP) Pulse Ox O2 Delivery O2 Flow Rate FiO2 08/13/19 16:19 126 90 08/13/19 16:15 137/67 (90) 08/13/19 14:35 Nasal Cannula 4.0 93 08/13/19 14:29 96.8 19 Laboratory Data Labs 24H Laboratory Tests 2 08/13/19 14:30: Immature Granulocyte % (Auto) 1.0, Neutrophils (%) (Auto) 69.5H, Lymphocytes (%) (Auto) 21.1L, Monocytes (%) (Auto) 7.0H, Eosinophils (%) (Auto) 1.1, Basophils (%) (Auto) 0.3, Neutrophils # (Auto) 10.6H, Lymphocytes # (Auto) 3.2, Monocytes # (Auto) 1.1H, Eosinophils # (Auto) 0.2, Basophils # (Auto) 0.1, Nucleated Red Blood Cells % (auto) 0.0, Anion Gap 6L, Glomerular Filtration Rate > 60.0, Calcium Level 9.4 CBC/BMP Laboratory Tests 08/13/19 14:30 Home Medications Scheduled Atorvastatin Calcium (Atorvastatin Calcium) 20 Mg Tab, 20 MG PO QHS, (Reported) Dexlansoprazole (Dexilant) 60 Mg Cap, 60 MG PO DAILY, (Reported) Duloxetine Hcl (Duloxetine HCl) 60 Mg Capsule.dr, 60 MG PO DAILY, (Reported) Gabapentin (Gabapentin) 600 Mg Tab, 600 MG PO TID, (Reported) Linaclotide (Linzess) 145 Mcg Cap, 145 MG PO BID, (Reported) Meloxicam (Meloxicam) 15 Mg Tab, 15 MG PO DAILY, (Reported) Olanzapine (Olanzapine) 5 Mg Tablet, 5 MG PO QHS, (Reported) Paroxetine HCl (Paroxetine HCl) 40 Mg Tab, 40 MG PO QHS, (Reported) Plecanatide (Trulance) 3 Mg Tablet, 3 MG PO DAILY, (Reported) Prednisone (Prednisone) 10 Mg Tablet, 10 MG PO DAILY, (Reported) Salmeterol/Fluticasone (Advair 500-50 Diskus) 1 Each Blst.w.dev, 1 PUFF INH BID, (Reported) Tizanidine HCl (Tizanidine HCl) 2 Mg Tab, 2 MG PO QHS, (Reported) Topiramate (Topiramate) 100 Mg Tab, 100 MG PO QAM, (Reported) Topiramate (Topiramate) 100 Mg Tab, 50 MG PO QHS, (Reported) Umeclidinium [place] (Incruse Ellipta) 62.5 Mcg/Inh Inh, 1 PUFF INH DAILY, (Reported) Varenicline Tartrate (Chantix) 1 Mg Kiko, 1 MG PO BID, (Reported) Scheduled PRN Albuterol Sulf (Albuterol Sulfate) 2.5 Mg/3 Ml Nebu, 1 VIAL NEB Q4H PRN for KATI RTNESS OF BREATH, (Reported) Albuterol Sulfate (Ventolin Hfa) 18 Gm Hfa.aer.ad, 2 PUFF INH Q4H PRN for wheezing, (Reported) Oxycodone HCl (Oxycodone HCl) 5 Mg Tab, 5 MG PO BID PRN for PAIN, (Reported) Allergies Coded Allergies: No Known Allergies (Verified Allergy, Unknown, 08/13/19) A-FIB/CHADSVASC A-FIB History Current/History of A-Fib/PAF?: No Current PO Anticoag Therapy: No LOTUS FRIAS MD Aug 13, 2019 16:57
[2019-08-13] MEDS ORDERED: CETACAINE SPRAY 5GM As Ordered ONE (17:47)
[2019-08-13] MEDS ORDERED: MIDAZOLAM INJ 2 MG/2 ML VIAL (J2250) As Ordered ONE (18:39)
--- NOTE | 2019-08-13 19:20 | ROOR ---
Patient Name: Geetha Reza Procedure Date: 08/13/2019 5:34 PM Date of : 1960 Age: 59 Room: Main OR Gender: Female Note Status: Finalized Procedure: Upper GI endoscopy Indications: Foreign body in the esophagus Providers: Juarez Hoffmann MD Referring MD: 2. Inpatient 2. Inpatient Requesting Provider: Medicines: General Anesthesia Complications: No immediate complications. Procedure: Pre-Anesthesia Assessment: - Prior to the procedure, a History and Physical was performed, and patient medications and allergies were reviewed. The patient is competent. The risks and benefits of the procedure and the sedation options and risks were discussed with the patient. All questions were answered and informed consent was obtained. Patient identification and proposed procedure were verified by the physician, the nurse and the anesthesiologist in the procedure room. Mental Status Examination: alert and oriented. Respiratory Examination: expiratory wheezes. CV Examination: normal. Prophylactic Antibiotics: The patient does not require prophylactic antibiotics. Prior Anticoagulants: The patient has taken no previous anticoagulant or antiplatelet agents. ASA Grade Assessment: III - A patient with severe systemic disease. After reviewing the risks and benefits, the patient was deemed in satisfactory condition to undergo the procedure. The anesthesia plan was to use general anesthesia. Immediately prior to administration of medications, the patient was re-assessed for adequacy to receive sedatives. The heart rate, respiratory rate, oxygen saturations, blood pressure, adequacy of pulmonary ventilation, and response to care were monitored throughout the procedure. The physical status of the patient was re-assessed after the procedure. The Endoscope was introduced through the mouth, and advanced to the body of the stomach. The upper GI endoscopy was accomplished without difficulty. The patient tolerated the procedure well. Findings: A piece of meat was found at the upper esophagus. There is some associated swelling at the level of upper esophageal sphincter, "fur" line esophagus suspicious for eosinophilic esophagitis was biopsie. The food bolus was easily pushed down to the stomach. No signs of strictures, narrowing at the middle and lower esophagus. This was biopsied with a cold forceps for histology. Estimated blood loss was minimal. Food bolus was easily pushed down to the stomach A large amount of food (residue) was found in the gastric fundus. Impression: - A large amount of food (residue) in the stomach. Recommendation: - Depending on how patient wakes up from anesthesia would either need overnight observation or could go home Attending Participation: I personally performed the entire procedure. Juarez Hoffmann MD Juarez Hoffmann MD 08/13/2019 7:20:19 PM Electronically signed by Juarez Hoffmann MD Number of Addenda: 0 Note Initiated On: 08/13/2019 5:34 PM Estimated Blood Loss: Estimated blood loss was minimal.
[2019-08-13] MEDS ORDERED: fentaNYL 100 MCG/2 ML INJECTION (J3010) IV PRN (19:45)
[2019-08-13] MEDS ORDERED: LR 1,000 ML IV SCH (19:45)
[2019-08-13] MEDS ORDERED: ONDANSETRON 4MG/2ML VIAL (J2405) IV PRN (19:45)
[2019-08-13 20:10] VITALS: BP 119/67
--- NOTE | 2019-08-13 20:13 | RO ---
DATE OF PROCEDURE: 08/13/2019 PREPROCEDURE DIAGNOSIS: Foreign body esophagus. POSTPROCEDURE DIAGNOSIS: Foreign body esophagus. PROCEDURE: Direct laryngoscopy. SURGEON: Dr. Jan Hook CHEMICAL TANK WORKER: ANESTHESIA: There was concern whether the patient actually had the foreign body in the pharynx because of the location of her symptoms towards the throat. She had no airway difficulty. DESCRIPTION OF PROCEDURE: Under general anesthesia with the patient intubated, I examined the oropharynx, hypopharynx and larynx. I went down to the upper esophageal sphincter. There was some liquid in the upper esophageal sphincter, but there was no evidence of foreign body in the pharynx, pyriform fossa, hypopharynx, oropharynx. The patient tolerated the procedure well and after that, Dr. Hoffmann did the esophagoscopy.
== END 2019-08-13 20:25 | disposition home or self-care (01) ==
LOC: EDBD 14:19 → M ED 14:19 → M SDC 14:20
PROVIDERS: ATTEND Surgery
DX: T18.128A Food in esophagus causing other injury, initial encounter (principal); T17.228A Food in pharynx causing other injury, initial encounter; Y92.001 Dining room of unspecified non-institutional (private) residence as the place of occurrence of the external cause; Y93.89 Activity, other specified; Y99.9 Unspecified external cause status; J44.9 Chronic obstructive pulmonary disease, unspecified; E03.9 Hypothyroidism, unspecified; F32.9 Major depressive disorder, single episode, unspecified; K21.9 Gastro-esophageal reflux disease without esophagitis; G43.909 Migraine, unspecified, not intractable, without status migrainosus; G25.0 Essential tremor; E78.49 Other hyperlipidemia; Z99.81 Dependence on supplemental oxygen; Z79.52 Long term (current) use of systemic steroids; M54.2 Cervicalgia; Z79.899 Other long term (current) drug therapy
CPT/HCPCS: 43239; 43247; 71045; 80048; 80053; 80061; 82043; 82306; 83036; 83880; 84443; 85025; 88305; 90682; 93005; 93041; 96374; 99285; G0008; G0463; J0330; J1610; J2250; J3010

== ENCOUNTER → 2019-08-13 | Outpatient (REF) | payer MEDICARE, MEDICAID ==
[~2019-08-13] MED LIST changes: +ADV500INH INH; -ALBU83IN INH; +ALBU83IN NEB; -AZIT500T2 PO; +AZIT500T5 PO; +DULO1CAP6 PO; +OLAN5TAB PO; +PRED10TA2 PO; +TRUL3TAB PO; +VENTAER INH
[2019-08-13 12:48] LABS: BASO % 0.3 % (0.0-1.0); EOS % 0.2 % (0.0-3.0); HEMATOCRIT 42.6 % (36.0-47.0); HEMOGLOBIN 13.3 g/dl (12.0-15.5); LYMPH # 1.4 10^3/uL (1.5-5.0); LYMPH % 13.5 % (24.0-44.0); MEAN CORPUSCULAR HEMOGLOBIN 29.8 pg (27.0-33.0); MEAN CORPUSCULAR HGB CONC 31.2 g/dl (32.0-36.5); MEAN CORPUSCULAR VOLUME 95.5 fl (80.0-96.0); MONO # 0.5 10^3/uL (0.0-0.8); MONO % 4.6 % (0.0-5.0); NEUTROPHILS # 8.1 10^3/uL (1.5-8.5); NEUTROPHILS % 79.8 % (36.0-66.0); PLATELET COUNT, AUTOMATED 312 10^3/uL (150-450); RED BLOOD COUNT 4.46 10^6/uL (4.00-5.40); WHITE BLOOD COUNT 10.1 10^3/uL (4.0-10.0)
[2019-08-13 13:01] LABS: ALBUMIN 3.2 GM/DL (3.2-5.2); ALT/SGPT 34 U/L (12-78); BILIRUBIN,TOTAL 0.4 MG/DL (0.2-1.0); BLOOD UREA NITROGEN 24 MG/DL (7-18); CALCIUM LEVEL 9.4 MG/DL (8.5-10.1); CARBON DIOXIDE LEVEL 37 MEQ/L (21-32); CHLORIDE LEVEL 96 MEQ/L (98-107); CHOLESTEROL LEVEL 173 MG/DL (<200); CHOLESTEROL RISK RATIO 2.011 (<5); CREATININE FOR GFR 0.88 MG/DL (0.55-1.30); GLOMERULAR FILTRATION RATE > 60.0 (>51); GLUCOSE, FASTING 146 MG/DL (70-100); HDL CHOLESTEROL 86 MG/DL (>40); LDL CHOLESTEROL 72 MG/DL (<100); NON-HDL-C 87 MG/DL; NT-PRO BNP 68 PG/ML (<125); POTASSIUM SERUM 4.1 MEQ/L (3.5-5.1); SODIUM LEVEL 139 MEQ/L (136-145); THYROID STIMULATING HORMONE 0.426 uIU/ML (0.358-3.740); TOTAL 25(OH) VITAMIN D 20.1 NG/ML (30.0-100.0); TOTAL PROTEIN 7.5 GM/DL (6.4-8.2); TRIGLYCERIDES LEVEL 77 MG/DL (<150)
[2019-08-13 13:18] LABS: HEMOGLOBIN A1c 7.4 %
[2019-08-13 13:23] LABS: MALB URINE SIEMENS 22.1 MG/L; MAU/CREAT RATIO 11.7 MCG/MG (0.0-30.0)
== END ==
LOC: M SFHCADAM 07:59
PROVIDERS: ATTEND Physician Assistant Medical
DX: E11.9 Type 2 diabetes mellitus without complications (principal); E78.2 Mixed hyperlipidemia; I10 Essential (primary) hypertension; K21.9 Gastro-esophageal reflux disease without esophagitis; R60.1 Generalized edema

== ENCOUNTER → 2019-08-30 | Outpatient (CLI) | payer MEDICARE, MEDICAID ==
[~2019-08-30] MED LIST changes: +ADV500INH INH; +DULO1CAP6 PO; +OLAN5TAB PO; +PRED10TA2 PO; +TRUL3TAB PO; +VENTAER INH
--- NOTE | 2019-09-18 02:35 | ECWPNPC ---
PATIENT NAME: ARTHUR ALSTON : 1960 GENDER: FEMALE VISIT DATE: 08/30/2019 DISCHARGE DATE: 08/30/19 1116 VISIT LOCKED DATE TIME: PHYSICIAN: HARSH RICHTER RESOURCE: HARSH RICHTER REASON FOR APPOINTMENT 1. MED MGMNT HISTORY OF PRESENT ILLNESS HISTORY OF PRESENT ILLNESS: HERE FOR F/U OF CHRONIC NECK PAIN.HAS BEEN FOLLOWED AT OUR PAIN CLINIC FOR SEVERAL YEARS.ON CHRONIC MEDICATION TO INCIUDE OXYCODONE 5MG BID ,GABAPENTIN ,TIZANIDINE AND MOBIC.FINDS CURRENT MEDICATION EFFECTIVE AT REDUCING PAIN AND KEEPING HER COMFORTABLE.RATING PAIN VAS 7/10. PAIN THE PATIENT DESCRIBES THE PAIN... THE PATIENT DESCRIBES THE PAIN... THE PATIENT DESCRIBES THE PAIN... THE PATIENT DESCRIBES THE PAIN... PAIN THE PATIENT DESCRIBES THE PAIN... THE PATIENT DESCRIBES THE PAIN... THE PATIENT DESCRIBES THE PAIN... THE PATIENT DESCRIBES THE PAIN... 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 PATIENT ON 3L OXY-GO-POC TAKING TOPIRAMATE 100 MG TABLET 1 TAB QAM; 1/2 TAB QHS ORALLY DAILY TAKING ALBUTEROL SULFATE (2.5 MG/3ML) 0.083% NEBULIZATION SOLUTION 3 ML NEEDED INHALATION EVERY 4 HOURS NEEDED FOR SOB TAKING DULOXETINE HCL 60 MG CAPSULE DELAYED RELEASE PARTICLES 1 CAPSULE ORALLY ONCE A DAY TAKING ADVAIR DISKUS 500-50 MCG/DOSE AEROSOL POWDER BREATH ACTIVATED INHALATION TAKING PAROXETINE HCL 40 MG TABLET TAKE ONE TABLET BY MOUTH EVERY MORNING TAKING CHANTIX CONTINUING MONTH DIANELYS 1 MG TABLET 1 TABLET ORALLY TWICE A DAY TAKING OLANZAPINE 5 MG TABLET 1 TABLET ORALLY ONCE A DAY TAKING LINZESS 290 MCG CAPSULE 1 CAPSULE ORALLY ONCE A DAY TAKING LIPITOR 20 MG TABLET 1 TABLET ORALLY ONCE A DAY TAKING SYNTHROID 25 MCG TABLET 1 TABLET ON AN EMPTY STOMACH IN THE MORNING ORALLY ONCE A DAY TAKING TIZANIDINE HCL 2 MG TABLET 1 TABLET NEEDED ORALLY BEFORE BEDTIME TAKING MELOXICAM 15 MG TABLET 1 TABLET ORALLY ONCE A DAY TAKING GABAPENTIN 600 MG TABLET 1 TABLET ORALLY THREE TIMES A DAY TAKING CHANTIX CONTINUING MONTH DIANELYS 1 MG TAKE ONE TABLET BY MOUTH TWICE A DAY TAKING OXYCODONE HCL 5 MG TABLET 1 TABLET ORALLY EVERY 8-12 HOURS PRN PAIN MDD=2 TAKING FUROSEMIDE 40 MG TABLET 1 TABLET ORALLY ONCE A DAY TAKING WHEELCHAIR - MISCELLANEOUS DIRECTED _ J96.11 TAKING TRULANCE 3 MG TABLET 1 TABLET ORALLY ONCE A DAY DISCONTINUED DULOXETINE HCL 60 MG TAKE ONE CAPSULE BY MOUTH EVERY DAY , NOTES: DUPLICATE ORDER DISCONTINUED PAROXETINE HCL 40 MG TAKE ONE TABLET BY MOUTH EVERY MORNING , NOTES: DUPLICATE ORDER DISCONTINUED OLANZAPINE 5 MG TAKE ONE TABLET BY MOUTH EVERY DAY , NOTES: DUPLICATE ORDER DISCONTINUED LIPITOR 20 MG TAKE ONE TABLET BY MOUTH EVERY DAY , NOTES: DUPLICATE ORDER MEDICATION LIST REVIEWED AND RECONCILED WITH THE PATIENT PAST MEDICAL HISTORY COPD CHRONIC OBSTRUCTIVE BRONCHITIS, EMPHYSEMA, DR TREJO CHRONIC O2 3 LPM CHRONIC NECK PAIN - PAIN CLINIC DEPRESSION HYPERLIPIDEMIA HYPERTENSION, 07/05 EKG NSR GERD STRESS URINARY INCONTINENCE H/O ABN MAMMO 07/06, BX 09/05 NEG, AGUERO DUE FOR REPEAT MAMMO EMANUEL DEP 08/02 ECHO, NL EXCEPT MILD RVH PINEAL CYST- NEURO, MRI 05/08 WITHOUT CHANGE. 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 SURGICAL HISTORY CERVICAL SPINE FUSION - WITH RODS AND BONE GRAFT. 1997 LEFT TOTAL KNEE REPLACEMENT- NCOG 07/05 TUBAL LIGATION COLONOSCOPY 08/05 POOR PREP, REPEAT 10/05, SUBOPTIMAL PREP, REPEAT IN 1 YEAR, NBIH 08/05, 10/05 UGI/ ENDOSCOPIC REMOVAL OF FOREIGN OBJECT - PT CHOKED ON A PIECE OF STEAK AND HAD IT REMOVED UNDER ANESTHESIA 08/13/19 FAMILY HISTORY FATHER: , DIAGNOSED WITH OTHER SPECIFIED CONDITIONS INFLUENCING HEALTH STATUS MOTHER: ALIVE, OTHER MALIGNANT NEOPLASM OF UNSPECIFIED SITE PATERNAL GRAND FATHER: PATERNAL GRAND MOTHER: MATERNAL GRAND FATHER: MATERNAL GRAND MOTHER: 2 BROTHER(S) , 1 SISTER(S) - HEALTHY. 2 SON(S) , 1 DAUGHTER(S) . FATHER: CIRROHSIS OF THE LIVER\\\\NMOTHER: COLON CA, HAS A COLOSTOMY BAG\\\\NBROTHER: HTN\\\\NSON: AT 23 \\\\N. SOCIAL HISTORY GENERAL: TOBACCO USE ARE YOU A:FORMER SMOKER HAS QUIT > 1 YEAR, REMAINS ON CHANTIX HOW LONG HAS IT BEEN SINCE YOU LAST SMOKED?1-5 YEARS HIV / HEP-C SCREENING HIV TEST OFFERED TO PATIENT:YES DATE OFFERED:06/29/2017 TEST ACCEPTED:NO HEP-C TEST OFFERED TO PATIENT:YES DATE OFFERED:06/29/2017 REASON:PATIENT DECLINED TEST ACCEPTED:NO REASON:PATIENT DECLINED EDUCATION LEVEL OF EDUCATION:FINISHED HIGH SCHOOL DIET: REGULAR. LANGUAGE LANGUAGES SPOKEN:BURMESE NEW PATIENT PAIN DIARY TODAY'S VISIT NOTES, FROM 0-10, WHAT LEVEL IS YOUR PAIN TODAY? 0. BMI CARE GOAL FOLLOW-UP ABOVE NORMAL BMI FOLLOW-UPDIETARY MANAGEMENT EDUCATION, GUIDANCE, AND COUNSELING RECREATIONAL DRUG USE DRUG USE?NO EXERCISE: NO REGULAR EXERCISE. LEARNING 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 LUNG CANCER SCREENING SMOKING STATUS:FORMER SMOKER PAIN CLINIC PFS, CLERGY, PUBLIC HEALTH REFERRALS PFS REFERRAL NEEDED?NO CLERGY REFERRAL NEEDED?NO PUBLIC HEALTH REFERRAL NEEDED?NO WAS THE PROVIDER NOTIFIED OF ANY PERTINENT INFO?NO HAS THE PATIENT BEEN EDUCATED REGARDING HIS/HER PLAN OF CARE?YES HAS THE PATIENT BEEN EDUCATED REGARDING PAIN, THE RISK FOR PAIN, THE IMPORTANCE OF EFFECTIVE PAIN MANAGEMENT, AND THE PAIN ASSESSMENT PROCESS?YES LATEX QUESTIONNAIRE LATEX ALLERGY : HAVE YOU EVER DEVELOPED ANY TYPE OF REACTION AFTER HANDLING LATEX PRODUCTS SUCH RUBBER GLOVES, CONDOMS, DIAPHRAGMS, BALLOONS, SOCKS, OR UNDERWEAR?NO LATEX ALLERGY : HAVE YOU EVER DEVELOPED ANY TYPE OF REACTION DURING OR AFTER DENTAL APPOINTMENT, VAGINAL/RECTAL EXAMINATION, SURGICAL PROCEDURE, OR ANY OTHER EXPOSURE?NO DATE ASKED : 01/28/2019 LATEX RISK : HAVE YOU EVER HAD ANY DIFFICULTY BREATHING OR HIVES AFTER EATING OR HANDLING ANY FRUITS, OR VEGETABLES; SUCH KIWI, BANANAS, STONE FRUITS, OR CHESTNUTSNO LATEX RISK : DO YOU HAVE A PREVIOUS PERSONAL HISTORY OF MORE THAN NINE SURGERIES, SPINA BIFIDA, OR REPEATED CATHERIZATIONS? NO LATEX RISK : ARE YOU FREQUENTLY EXPOSED TO LATEX PRODUCTS IN YOUR OCCUPATION?NO CAFFEINE CAFFEINE USE?YES COFFEE DAILY ADVANCE DIRECTIVE ADVANCE DIRECTIVE DISCUSSED WITH PATIENT:YES PT HAS NO ADVANCED DIRECTIVES, DECLINES INFORMATION OR ASSISTANCE AT THIS TIME WORSHIP [id number] NONE MARITAL STATUS: . ALCOHOL SCREENING DID YOU HAVE A DRINK CONTAINING ALCOHOL IN THE PAST YEAR?YES HOW OFTEN DID YOU HAVE SIX OR MORE DRINKS ON ONE OCCASION IN THE PAST YEAR?NEVER (0 POINTS) HOW MANY DRINKS DID YOU HAVE ON A TYPICAL DAY WHEN YOU WERE DRINKING IN THE PAST YEAR?1 OR 2 (0 POINTS) HOW OFTEN DID YOU HAVE A DRINK CONTAINING ALCOHOL IN THE PAST YEAR?MONTHLY OR LESS (1 POINT) POINTS1 INTERPRETATIONNEGATIVE OCCUPATION: DISABLED. SEXUAL HX HAD SEX IN THE LAST 12 MONTHS (VAGINAL, ORAL, OR ANAL)?NO 12/25/2017 0900 REVIEWED LAS03/27/18 0902 REVIEWED BVREVIEWED WITH PT 06/27/2018 0930 LASREVIEWED WITH PT 10/30/18 1445 LAS. HOSPITALIZATION/MAJOR DIAGNOSTIC PROCEDURE L KNEE REPLACEMENT 07/05 VAGINAL DELIVERIES PNEUMONIA CERVICAL SPINE FUSION 1997 ATYPICAL CP 08/02 ACUTE RESP FAILURE 03/03 [facility]- COPD, CAP, PLEURISY 10/2018 REVIEW OF SYSTEMS REVIEWED BY: PROVIDER: HARSH VALADEZ . CONSTITUTIONAL: ANY CHANGE IN YOUR MEDICAL CONDITION? NO . CHILLS NO . FEVER NO . INFECTION: DO YOU HAVE NEW INFECTIONS? NO . DO YOU HAVE HISTORY OF MRSA? NO . MUSCULOSKELETAL: ANY NEW PATTERNS OF PAIN OR NUMBNESS? NO . GASTROENTEROLOGY: ANY NEW CHANGE IN BOWEL CONTROL? NO . GENITOURINARY: ANY NEW CHANGE IN BLADDER CONTROL? NO . IS THERE A CHANCE YOU COULD BE ? NO . HEMATOLOGY/LYMPH: DO YOU TAKE ANY BLOOD THINNERS? (FOR EXAMPLE- COUMADIN, PLAVIX, AGGRENOX, PLATEL, PRADAXA, OR XARELTO) NO . WHEN WAS YOUR LAST DOSE? DATE: TIME: . NEUROLOGY: HAVE YOU FALLEN IN THE PAST 12 MONTHS? NO . ANY NEW EXTREMITY NUMBNESS OR WEAKNESS? NO . CARDIOLOGY: DO YOU HAVE A PACEMAKER OR DEFIBRILLATOR? NO . RESPIRATORY: HAVE YOU BEEN SICK IN THE PAST WEEK? NO . FEVER NO . FLU LIKE SYMPTOMS? NO . COUGH NO . INTEGUMENTARY: DO YOU HAVE ANY RASHES OR OPEN SORES? NO . ALLERGIC/IMMUNO: ARE YOU ALLERGIC TO IV DYE? NO . ANY NEW ALLERGIES? NO . PSYCHIATRIC: DO YOU HAVE THOUGHTS OF HURTING YOURSELF OR SOMEONE ELSE? NO . ARE YOU ABUSED, NEGLECTED, OR IN AN UNSAFE ENVIRONMENT? NO . ENDOCRINOLOGY: ARE YOU DIABETIC? NO . OTHER: DO YOU NEED ANY PRESCRIPTIONS? YES . IF YES, PLEASE LIST: ____OXYCODONE . ANY NEW PROBLEMS WITH YOUR MEDICATIONS? NO . WHEN DID YOU LAST EAT? ____ . WHEN DID YOU LAST DRINK? ____ . WHAT DID YOU LAST DRINK? ____ . NAME OF PERSON DRIVING YOU HOME? ____ . DO YOU HAVE ANY OTHER QUESTIONS OR CONCERNS NO . VITAL SIGNS WT 226.4 LBS, HT 64", BMI 38.86 INDEX, BP 136/97 MM HG, HR 130 /MIN, RR 22 /MIN, TEMP 96.9 F, OXYGEN SAT % 92% ON 3 L, SAFE IN ENV? (Y/N) YES, NA INITIALS SC, REVIEWED BY: OMAIRA. EXAMINATION GENERAL EXAMINATION: GENERAL AWAKE,ALERT ,PLEASANT . PSYCH AFFECT NORMAL . LUNGS: LUNG ROCK ARE CLEAR TO AUSCULTATION BILATERALLY. GOOD MOVEMENT OF AIR . HEART: S1, S2 IN A REGULAR RATE AND RHYTHM. NO SIGNIFICANT MURMURS, RUBS OR GALLOPS NOTED . ASSESSMENTS CERVICAL DISC DISORDER OF CERVICOTHORACIC REGION - M50.93 (PRIMARY) TREATMENT CERVICAL DISC DISORDER OF CERVICOTHORACIC REGION REFILL OXYCODONE HCL TABLET, 5 MG, 1 TABLET, ORALLY, EVERY 8-12 HOURS PRN PAIN MDD=2, 30 DAY(S), 60, REFILLS 0 CONTINUE GABAPENTIN TABLET, 600 MG, 1 TABLET, ORALLY, THREE TIMES A DAY CONTINUE MELOXICAM TABLET, 15 MG, 1 TABLET, ORALLY, ONCE A DAY CONTINUE TIZANIDINE HCL TABLET, 2 MG, 1 TABLET NEEDED, ORALLY, BEFORE BEDTIME NOTES: ISTOP REGISTRY REVIEWED AND DEMONSTRATES COMPLLIANCE. BRINGS IN MEDICATIONS WHICH IS APPROPRIATE FOR WHAT WAS DISPENSED. RECENT URINE TOXICOLOGY REVIEWED. NO UNAUTHORIZED MEDICATIONS. NO ILLICIT SUBSTANCES AND PRESCRIBED MEDICATIONS WERE PRESENT. URINE TOX TODAY, RISKS OF NARCOTIC/OPIOD MEDICATIONS INCLUDES BUT IS NOT LIMITED TO RISK OF DEPENDANCE/DEVELOPMENT OF ADDICTION, MOOD DISTURBANCE AND DEPRESSION, OSTEOPOROSIS, HORMONAL AND LABIDAL CHANGES, RESPIRATORY DEPRESSION AND . PATIENT IS ADVISED NOT TO DRIVE OR DRINK ALCOHOL WHILE ON THESE MEDICATIONS. PROCEDURE CODES FA211 ESTABILISHED PATIENT [facility] CHARGE DISPOSITION & COMMUNICATION FOLLOW UP 3 MONTHS MED MGMNT ELECTRONICALLY SIGNED BY ALLYSON ONEIL ON 09/17/2019 AT 01:11 PM EST DISCLAIMER : THIS IS A VISIT SUMMARY EXTRACTED FROM THE [employer] CHART. IT IS NOT A COPY OF THE [employer] PROGRESS NOTE. ELVIA
== END ==
LOC: M PAIN 09:45
PROVIDERS: ATTEND Nurse Practitioner Family
DX: M50.93 Cervical disc disorder, unspecified, cervicothoracic region (principal)

== ENCOUNTER 2019-09-20 14:30 | Inpatient (IN) | payer MEDICARE, MEDICAID ==
[~2019-09-20] VITALS: Ht 167.6 cm; Wt 100.7 kg
[2019-09-20] MEDS ORDERED: CEFU1TAB22 PO (14:53)
[2019-09-20] MEDS ORDERED: LEVO25TA5 PO (14:53)
[2019-09-20 15:25] LABS: VENOUS BASE EXCESS 5.9 (-2.0-2.0); VENOUS HCO3 31.7 MEQ/L (23.0-27.0); VENOUS O2 SATURATION 97.9 % (60.0-80.0); VENOUS PARTIAL PRESSURE CO2 50.4 mmHg (38.0-50.0); VENOUS PARTIAL PRESSURE O2 98.6 mmHg (30.0-50.0); VENOUS PH 7.417 UNITS (7.330-7.430); VENOUS STANDARD HCO3 29.8 MEQ/L; VENOUS TOTAL CO2 33.3 MEQ/L (24.0-28.0)
[2019-09-20] MEDS ORDERED: IPRATROPIUM 0.5MG/ALBUTEROL 2.5MG INH SOL UD 3ML (DUONEB)(J7620) NEB ONE (15:30)
[2019-09-20] MEDS ORDERED: NS 500 ML IV ONE (15:30)
[2019-09-20 15:34] LABS: BASO # 0.1 10^3/uL (0.0-0.2); BASO % 0.4 % (0.0-1.0); EOS % 0.1 % (0.0-3.0); HEMATOCRIT 45.3 % (36.0-47.0); LYMPH # 0.9 10^3/uL (1.5-5.0); LYMPH % 5.8 % (24.0-44.0); MEAN CORPUSCULAR HEMOGLOBIN 29.5 pg (27.0-33.0); MEAN CORPUSCULAR HGB CONC 30.9 g/dl (32.0-36.5); MEAN CORPUSCULAR VOLUME 95.6 fl (80.0-96.0); MONO # 0.1 10^3/uL (0.0-0.8); MONO % 0.8 % (0.0-5.0); NEUTROPHILS # 14.3 10^3/uL (1.5-8.5); NEUTROPHILS % 91.9 % (36.0-66.0); PLATELET COUNT, AUTOMATED 296 10^3/uL (150-450); RED BLOOD COUNT 4.74 10^6/uL (4.00-5.40); WHITE BLOOD COUNT 15.5 10^3/uL (4.0-10.0)
--- NOTE | 2019-09-20 15:38 | REP ---
Clinical: Altered mental status . Comparison: 04/24/2007 . Findings: The ventricles, sulci, and cisterns are normal in position and appearance. Jones-white differentiation is maintained. No acute intracranial hemorrhage, mass/mass effect, pathology or trauma/injury. No evidence for acute infarction. No extra-axial fluid collection. Calvarium is intact. Paranasal sinuses and mastoid air cells are clear. Impression: Normal noncontrast head CT. No evidence for acute intracranial pathology or trauma/injury. Electronically Signed by Marcus Dacosta MD 09/20/2019 03:30 P
--- NOTE | 2019-09-20 15:43 | REP ---
Clinical: Altered mental status . Comparison: 11/05/2018, 08/13/2019 . Findings: The mediastinum and cardiac silhouette are stable and within normal limits for portable technique. The lung lee are clear without acute consolidation, effusion, or pneumothorax. Skeletal structures are intact. Impression: No acute cardiopulmonary process appreciated. Electronically Signed by Marcus Dacosta MD 09/20/2019 03:35 P
[2019-09-20 16:28] LABS: ALBUMIN 3.2 GM/DL (3.2-5.2); ALT/SGPT 43 U/L (12-78); BILIRUBIN,DIRECT 0.2 MG/DL (0.0-0.2); BILIRUBIN,TOTAL 0.6 MG/DL (0.2-1.0); BLOOD UREA NITROGEN 19 MG/DL (7-18); CARBON DIOXIDE LEVEL 33 MEQ/L (21-32); CHLORIDE LEVEL 100 MEQ/L (98-107); CK-MB VALUE MASS < 1.0 NG/ML (<3.6); CPK CREATINE PHOSPHOKINASE 40 U/L (26-192); CREATININE FOR GFR 0.73 MG/DL (0.55-1.30); GLOMERULAR FILTRATION RATE > 60.0 (>51); GLUCOSE, FASTING 182 MG/DL (70-100); POTASSIUM SERUM 4.3 MEQ/L (3.5-5.1); SODIUM LEVEL 137 MEQ/L (136-145); TOTAL PROTEIN 7.8 GM/DL (6.4-8.2); TROPONIN I < 0.02 NG/ML (< 0.10)
[2019-09-20] MEDS ORDERED: ISOVUE-370 76% 100ML VIAL (Q9967) As Ordered ONE (17:12)
--- NOTE | 2019-09-20 17:56 | REPVR ---
PROCEDURE INFORMATION: Exam: CT Angiography Chest With Contrast Exam date and time: 09/20/2019 5:37 PM Age: 59 years old Clinical history: Shortness of breath; Additional info: SOB TECHNIQUE: Imaging protocol: Computed tomographic angiography of the chest with intravenous contrast. 3D rendering: MIP reconstructed images were created and reviewed. Radiation optimization: All CT scans at this facility use at least one of these dose optimization techniques: automated exposure control; mA and/or kV adjustment per patient size (includes targeted exams where dose is matched to clinical indication); or iterative reconstruction. Contrast material: ISOVUE 370; Contrast volume: 75 ml; Contrast route: IV; COMPARISON: CR PORTABLE CHEST X-RAY 09/20/2019 3:05 PM FINDINGS: Pulmonary arteries: There are no pulmonary emboli. Aorta: The aorta demonstrates mild atherosclerotic calcification. There is no aortic dissection or aneurysm. Lungs: Moderate to severe paraseptal and centrilobular emphysema throughout both lungs. Pleural space: Bilateral apical pleural-parenchymal scarring. Heart: Unremarkable. No cardiomegaly. No pericardial effusion. Liver: Cirrhotic morphology of the liver. Fatty liver. Lymph nodes: Unremarkable. No enlarged lymph nodes. Bones/joints: The spine demonstrates mild degenerative changes. Schmorl's node superior endplate T10. Soft tissues: Unremarkable. IMPRESSION: 1. Moderate to severe paraseptal and centrilobular emphysema throughout both lungs. 2. There are no pulmonary emboli. 3. There is no aortic dissection or aneurysm. 4. No acute pulmonary infiltrates. Electronically signed by: Jef Chicas On 09/20/2019 17:55:51 PM
[2019-09-20] MEDS ORDERED: methylPREDNISolone INJ 125 MG/2 ML VIAL (J2930) IV ONE (18:15)
--- NOTE | 2019-09-20 18:23 | ECGEPIP ---
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
[2019-09-20] MEDS ORDERED: ONDANSETRON 4MG/2ML VIAL (J2405) As Ordered ONE (19:15)
[2019-09-20] MEDS ORDERED: ONDANSETRON 4MG/2ML VIAL (J2405) IV ONE (19:30)
[2019-09-20] MEDS ORDERED: ONDANSETRON 4MG/2ML VIAL (J2405) IV PRN (19:45)
[2019-09-20] MEDS ORDERED: FLEET ENEMA PR PRN (19:45)
[2019-09-20] MEDS ORDERED: GASTROGRAFIN SOLUTION 30ML PO SCH (20:15)
[2019-09-20] MEDS ORDERED: OLANZapine 5 MG TAB PO SCH (21:00)
[2019-09-20] MEDS: HumaLOG INSULIN (NovoLOG) PER UNIT SC SCH (21:00)
[2019-09-20] MEDS ORDERED: PARoxetine 20 MG TAB PO SCH ×2 (21:00)
[2019-09-20] MEDS ORDERED: NS 1,000 ML IV SCH (21:45)
--- NOTE | 2019-09-20 21:58 | HPEPDOC ---
General Date of Admission Sep 20, 2019 at 19:42 Date of Service: Sep 20, 2019 Chief Complaint The patient is a 59-year-old female admitted with a reason for visit of Acute Metabolic Encephalopathy. Source: Family, RN/MD, Old records Exam Limitations: Clinical conditions History of Present Illness 59 year old female with COPD and chronic hypoxic respiratory failure, chronic neck pain on pain meds, depression, chronic constipation, obesity , steroid i nduced diabetes. on chronic steroids was brought o he ED for worsening confusion for 1 week. Daughter says her memory has been poor last 2 to 3 months but very bad this week. As per daughter she usually makes her pill box . This morning she went to check on the patient and found her very confused. She gave her the morning meds and brought to the ED for evaluation. Patient has also been complaining of abdominal pain and nausea for several weeks and chronic constipation. She had a CT abd pelvis with iv contrast as an outpatient which did not show any acute finding. She had 2 colonoscopies but both were poor prep. On my interview. She was somnolent on waking her up she did know she was in the hospital and the name of the hospital however thought it was april of 2015 and it was summer. SHe was not sure whether she has been taking her medications or not. Was not sure when she last had a bowel movement. Said her breathing was bad but could not tell me how much oxygen she uses. For all answers she would look at her daughter for confirmation. Her abdominal pain is located in the periumbilica l region and dull aching, denied any cramps about 3/10 accompanied by nausea with constipation. No diarrhea. Daughter dsays that she has gained a lot of weigh in the last 3 months and says her belly has become very big. Home Medications Scheduled Atorvastatin Calcium (Atorvastatin Calcium) 20 Mg Tab, 20 MG PO QHS, (Reported) Dexlansoprazole (Dexilant) 60 Mg Cap, 60 MG PO DAILY, (Reported) Duloxetine Hcl (Duloxetine HCl) 60 Mg Capsule.dr, 60 MG PO DAILY, (Reported) Gabapentin (Gabapentin) 600 Mg Tab, 600 MG PO TID, (Reported) Levothyroxine Sodium (Levothyroxine Sodium) 25 Mcg Tablet, 25 MCG PO DAILY, (Reported) Meloxicam (Meloxicam) 15 Mg Tab, 15 MG PO DAILY, (Reported) Olanzapine (Olanzapine) 5 Mg Tablet, 5 MG PO QHS, (Reported) Paroxetine HCl (Paroxetine HCl) 40 Mg Tab, 40 MG PO QHS, (Reported) Plecanatide (Trulance) 3 Mg Tablet, 3 MG PO DAILY, (Reported) Prednisone (Prednisone) 10 Mg Tablet, 10 MG PO DAILY, (Reported) Salmeterol/Fluticasone (Advair 500-50 Diskus) 1 Each Blst.w.dev, 1 PUFF INH BID, (Reported) Umeclidinium [place] (Incruse Ellipta) 62.5 Mcg/Inh Inh, 1 PUFF INH DAILY, (Reported) Varenicline Tartrate (Chantix) 1 Mg Kiko, 1 MG PO BID, (Reported) cefUROXime axetil (Cefuroxime) 500 Mg Tablet, 500 MG PO BID, (Reported) for 10 days, filled 09/11 Scheduled PRN Albuterol Sulf (Albuterol Sulfate) 2.5 Mg/3 Ml Nebu, 1 VIAL NEB Q4H PRN for SHORTNESS OF BREATH, (Reported) Albuterol Sulfate (Ventolin Hfa) 18 Gm Hfa.aer.ad, 2 PUFF INH Q4H PRN for wheezing, (Reported) Oxycodone HCl (Oxycodone HCl) 5 Mg Tab, 5 MG PO BID PRN for PAIN, (Reported) Allergies Coded Allergies: No Known Allergies (Verified Allergy, Unknown, 09/20/19) Past Medical History Medical History COPD CHRONIC OBSTRUCTIVE BRONCHITIS, EMPHYSEMA, DR TREJO CHRONIC O2 3 LPM CHRONIC NECK PAIN - PAIN CLINIC DEPRESSION HYPERLIPIDEMIA HYPERTENSION, 07/05 EKG NSR GERD STRESS URINARY INCONTINENCE 08/02 ECHO, NL EXCEPT MILD RVH PINEAL CYST- NEURO, MRI 05/08 WITHOUT CHANGE. 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 1997 LEFT TOTAL KNEE REPLACEMENT- NCOG 07/05 TUBAL LIGATION COLONOSCOPY 08/05 POOR PREP, REPEAT 10/05, SUBOPTIMAL PREP, Family History MOTHER: ALIVE, OTHER MALIGNANT NEOPLASM OF UNSPECIFIED SITE 2 BROTHER(S) , 1 SISTER(S) - HEALTHY. 2 SON(S) , 1 DAUGHTER(S) . FATHER: CIRROHSIS OF THE LIVER , MOTHER: COLON CA, HAS A COLOSTOMY BAG, BROTHER: HTN, SON: AT 23 Social History * Smoker: former Smoker (quit 6 months) Alcohol: Denies Drugs: denies A-FIB/CHADSVASC A-FIB History Current/History of A-Fib/PAF?: No Review of Systems Constitutional: Reports: Weakness, Fatigue; Denies: Chills, Fever, Night Sweats Eyes: Denies: Pain, Vision change ENT: Denies: Head Aches, Ear Pain, Dysphagia Skin: Denies: Rash, Lesions, Breakdown Pulmonary: Reports: Dyspnea, Cough Cardiovascular: Denies: Chest Pain, Palpitations, Lt Headedness Gastrointestinal: Reports: Nausea, Vomiting, Abdominal Pain, Constipation Genitourinary: Denies: Dysuria, Frequency, Incontinence, Retention Musculoskeletal: Reports: Neck Pain, Back Pain Neurological: Reports: Confusion; Denies: Weakness, Numbness, Change in speech Physical Examination General Exam: Positive: Cooperative, No Acute Distress, Other (somnolent and oriented x 2. does not know the moth or year of that we just had thanksgiving yesterday. ) Eye Exam: Positive: PERRLA, Conjunctiva & lids normal, EOMI; Negative: Sclera icteric ENT Exam: Positive: Atraumatic, Mucous membr. moist/pink, Pharynx Normal Neck Exam: Positive: Supple; Negative: JVD, thyromegaly Chest Exam: Positive: Diminished; Negative: Rales, Rhonchi, Wheezing, Other Heart Exam: Positive: Tachycardic, Regular Rhythm, Normal S1, Normal S2; Negative: Gallops, Murmurs, Rubs Telemetry: Positive: Sinus, Tachycardia Abdomen Exam: Positive: Normal bowel sounds, Soft, Tenderness (in the p eriumbilical region. ), Other (obese) Extremity Exam: Negative: Clubbing, Cyanosis, Edema Skin Exam: Positive: Nl turgor and temperature; Negative: Breakdown, Lesion Neuro Exam: Positive: Normal Speech, Normal Tone, Sensation Intact Psych Exam: Positive: Other (memory poor, oriented x 2) Vital Signs Vital Signs Date Time Temp Pulse Resp B/P (MAP) Pulse Ox O2 Delivery O2 Flow Rate FiO2 09/20/19 20:33 115 18 91 Nasal Cannula 3.0 09/20/19 20:30 128/63 (84) 09/20/19 19:18 97.3 Laboratory Data Labs 24H Laboratory Tests 2 09/20/19 15:02: Immature Granulocyte % (Auto) 1.0, Neutrophils (%) (Auto) 91.9H, Lymphocytes (%) (Auto) 5.8L, Monocytes (%) (Auto) 0.8, Eosinophils (%) (Auto) 0.1, Basophils (%) (Auto) 0.4, Neutrophils # (Auto) 14.3H, Lymphocytes # (Auto) 0.9L, Monocytes # (Auto) 0.1, Eosinophils # (Auto) 0.0, Basophils # (Auto) 0.1, Nucleated Red Blood Cells % (auto) 0.0, Blood Gas Bicarbonate Standard 29.8, Venous Blood pH 7.417, Venous Blood Partial Pressure CO2 50.4H, Venous Blood Partial Pressure O2 98.6H, Venous Blood Total Carbon Dioxide 33.3H, Venous Blood HCO3 31.7H, Venous Blood Oxygen Saturation 97.9H, Venous Blood Base Excess 5.9H, Anion Gap 4L, Glomerular Filtration Rate > 60.0, Lactic Acid Level 0.8, Calcium Level 9.0, Total Bilirubin 0.6, Direct Bilirubin 0.2, Aspartate Amino Transf (AST/SGOT) 25, Alanine Aminotransferase (ALT/SGPT) 43, Alkaline Phosphatase 126H, Ammonia 13, Total Creatine Kinase 40, Creatine Kinase MB < 1.0, Creatine Kinase MB Relative Index 2.50, Troponin I < 0.02, Total Protein 7.8, Albumin 3.2, Albumin/Globulin Ratio 0.70L, Thyroid Stimulating Hormone (TSH) 1.410 09/20/19 15:22: Bedside Glucose (Misc Panel) 176H 09/20/19 15:37: POC pH (Misc Panel) 7.412, POC Base Excess (Misc Panel) 10.0H, POC Saturated Percent O2 (Misc) 94L, POC pO2 (Misc Panel) 73.0L, POC pCO2 (Misc Panel) 54.3H, POC HCO3 (Misc Panel) 34.6H, POC Total CO2 (Misc Panel) 36.0H 09/20/19 17:29: Urine Color YELLOW, Urine Appearance CLOUDYH, Urine pH 7.0, Urine Specific [place] 1.021, Urine Protein NEGATIVE, Urine Glucose (UA) NEGATIVE, Urine Ketones 2+H, Urine Blood NEGATIVE, Urine Nitrite NEGATIVE, Urine Bilirubin NEGATIVE, Urine Urobilinogen 0.2, Urine Leukocyte Esterase NEGATIVE, Urine WBC (Auto) 2, Urine RBC (Auto) 5H, Urine Hyaline Casts (Auto) 0, Urine Bacteria (Auto) NEGATIVE, Urine Squamous Epithelial Cells 1, Urine Sperm (Auto) CBC/BMP Laboratory Tests 09/20/19 15:02 Microbiology Microbiology 09/20/19 Gram Stain, Received Pending 09/20/19 Sputum Culture, Received Pending 09/20/19 Respiratory Virus Panel (PCR) ([facility]) - Final, Complete 09/20/19 Blood Culture, Received Pending 09/20/19 Blood Culture, Received Pending Assessment/Plan 59 year old female with COPD and chronic hypoxic respiratory failure, chronic neck pain on pain meds, depression, chronic constipation, obesity , steroid induced diabetes. on chronic steroids was brought to the ED for worsening confusion for 1 week. Daughter says her memory has been poor last 2 to 3 months but very bad this week. As per daughter she usually makes her pill box . This morning she went to check on the patient and found her very confused. She was admitted for metabolic encephalopathy. Acute metabolic encephalopathy there is no significant hypoxia or hypercarbia, no infection. could be medication related. Will hold oxycodone, will reduce dose of gabapentin. will reduce paroxetine and stop olanzepine. May also have dementia which is worsening. May have underlying sleep apnea/ obesity hypoventilation. will get nocturnal oximetry. will get ABG in the AM. COPD with emphysema and chronic respiratory failure with hypoxia and hypercarbia. not in exacerbation continue home meds, prednisone, albuterol nebs, inhalers. Sinus tachycardia CT angio negative for any PE or pneumonia. Has advanced emphysema could be due to advanced COPD could be due to abdominal discomfort. may be volume depleted. will give genteel hydration will monitor. Abdominal pain with nausea and chronic constipation CT abd pelvis with oral contrast only shows acute or chronic colitis of the left colon and sigmoid colon will give ceftriaxone and flagyl. bowel regimen. Obesity complicating care. Cirrhosis of liver by CT scan ammonia level normal. no no hepatic encephalopathy Diabetes A1c was 7.4 may be steroid induced. will put on lispro as per sliding scale. Depression will continue paroxetine with lower dose and olanzepine lower dose. Chronic neck pain with h/o neck surgery will hold oxycodone. will reduce gabapentin, will reduce cymbalta. Hypothyroid synthroid Hyperlipidemia statin Plan / VTE VTE Prophylaxis Ordered?: Yes PARRIS ARENAS MD Sep 20, 2019 21:58
[2019-09-20] MEDS ORDERED: GLUCAGON FOR INJ 1 MG VIAL (J1610) SC PRN (22:00)
[2019-09-20] MEDS ORDERED: GLUCOSE 4 GM CHEW TABLET PO PRN (22:00)
[2019-09-20] MEDS ORDERED: DEXTROSE 50% 50 ML SYRINGE IV PRN (22:00)
--- NOTE | 2019-09-20 22:07 | REPVR ---
PROCEDURE INFORMATION: Exam: CT Abdomen And Pelvis Without Contrast Exam date and time: 09/20/2019 9:34 PM Age: 59 years old Clinical history: Constipation and nausea; Abdominal pain; Generalized; Additional info: Abdominal pain, constipation, nausea TECHNIQUE: Imaging protocol: Computed tomography of the abdomen and pelvis without contrast. Radiation optimization: All CT scans at this facility use at least one of these dose optimization techniques: automated exposure control; mA and/or kV adjustment per patient size (includes targeted exams where dose is matched to clinical indication); or iterative reconstruction. COMPARISON: CT ABD PELVIS W/O FOL BY WIT 09/07/2018 3:10 PM FINDINGS: Liver: Examination of the liver demonstrates a lobular surface contour, and enlargement of the left and caudate lobes, findings which may be consistent with cirrhosis in the appropriate clinical setting. Gallbladder and bile ducts: Normal. No calcified stones. No ductal dilation. Pancreas: Normal. No ductal dilation. Spleen: Normal. No splenomegaly. Adrenals: Normal. No mass. Kidneys and ureters: Normal. No hydronephrosis. Stomach and bowel: There is a diffusely boggy appearance of the left and sigmoid colon with mural stratification and an ahasutral countour. There are pericolonic inflammatory changes. Findings consistent with acute or chronic changes of colitis. No abscess demonstrated. Appendix: No evidence of appendicitis. Intraperitoneal space: Unremarkable. No free air. No significant fluid collection. Vasculature: The aorta demonstrates mild atherosclerotic calcification. Lymph nodes: Unremarkable. No enlarged lymph nodes. Bladder: Unremarkable as visualized. Reproductive: Unremarkable as visualized. Bones/joints: Unremarkable. No acute fracture. Soft tissues: Umbilical hernia. IMPRESSION: 1. Examination of the liver demonstrates a lobular surface contour, and enlargement of the left and caudate lobes, findings which may be consistent with cirrhosis in the appropriate clinical setting. 2. There is a diffusely boggy appearance of the left and sigmoid colon with mural stratification and an ahasutral countour. There are pericolonic inflammatory changes. Findings consistent with acute or chronic changes of colitis. No abscess demonstrated. Electronically signed by: Jef Chicas On 09/20/2019 22:06:50 PM
[2019-09-20 22:34] VITALS: BP 149/88
[2019-09-20] MEDS: PANTOPRAZOLE 40MG INJ (PROTONIX) (C9113) IV SCH (23:34)
[2019-09-20] MEDS: DOCUSATE SODIUM 100 MG CAP PO SCH (23:35)
[2019-09-20] MEDS: ATORVASTATIN 20 MG TAB PO SCH (23:35)
[2019-09-20] MEDS: GABAPENTIN 100 MG CAP PO SCH (23:35)
[2019-09-20] MEDS: SENNA 8.6 MG TAB (SENOKOT) PO SCH (23:35)
[2019-09-21] VITALS (17 sets, daily range): BP systolic 130–153; BP diastolic 63–82; O2SAT 89–96
[2019-09-21] MEDS: VARENICLINE 1 MG TABLET PO SCH ×3 (00:15→20:30)
[2019-09-21] MEDS: OLANZapine 2.5MG TABLET PO SCH ×2 (00:15→20:31)
[2019-09-21] MEDS: ADVAIR HFA 230/21MCG INHALER INH SCH ×3 (00:42→20:19)
[2019-09-21] MEDS: ALBUTEROL SULFATE 2.5 MG/0.5 ML INH NEB SOLN NEB SCH ×4 (00:49→23:27)
[2019-09-21] MEDS ORDERED: cefTRIAXone SOD 1 GM in D5W MINI-BAG PLUS 50 ML IV SCH (01:00)
[2019-09-21] MEDS: metroNIDAZOLE 500 MG in IV 1 EA IV SCH ×3 (03:21→18:03)
[2019-09-21] MEDS ORDERED: FUROSEMIDE 100 MG/10 ML VIAL (J1940) IV ONE (05:15)
[2019-09-21] MEDS: LEVOTHYROXINE 25MCG TABLET (0.025MG) PO SCH (05:23)
--- NOTE | 2019-09-21 05:27 | IPNPDOC ---
Text Note Date of Service The patient was seen on 09/21/19. NOTE Patient noted to be tachycardic to 150s. EKG sinus tachycardia. Also more hy poxic now requiring 4 liters at rest to maintain bet 90 to 92 and desaturating to 78% to 80% on walking to the bathroom. Few basal crackles on auscultation. JV distension present. No pedal edema. Patient now awake and alert she tells me her pulse at home has been running at 140s also and her oxygen drops when she walks at home so her daughter increases the oxygen level. Looks like CHF. Will give lasix 60 mg IV once. Move to PCU . Echo. VS,Fishbone, I+O VS, Fishbone, I+O Laboratory Tests 09/20/19 15:02 Vital Signs Date Time Temp Pulse Resp B/P (MAP) Pulse Ox O2 Delivery O2 Flow Rate FiO2 09/21/19 00:48 96 Nasal Cannula 2.0 09/20/19 22:34 98.6 118 18 149/88 (108) I&O- Last 24 Hours up to 6 AM 09/21/19 06:00 Intake Total 550 ml Balance 550 ml PARRIS ARENAS MD Sep 21, 2019 05:27
[2019-09-21 05:56] LABS: ABG BASE EXCESS 7.3 (-2.0-2.0); ABG O2 SATURATION 97.4 % (95.0-99.0); ABG PARTIAL PRESSURE O2 94.6 mmHg (75.0-100.0); ABG STANDARD HCO3 31.1 MEQ/L (22.0-26.0); ABG TOTAL CO2 35.8 MEQ/L (22.0-29.0); ABG pH (ARTERIAL) 7.394 UNITS (7.350-7.450)
[2019-09-21 05:59] LABS: BASO % 0.1 % (0.0-1.0); HEMATOCRIT 41.5 % (36.0-47.0); LYMPH # 0.9 10^3/uL (1.5-5.0); LYMPH % 7.1 % (24.0-44.0); MEAN CORPUSCULAR HEMOGLOBIN 29.3 pg (27.0-33.0); MEAN CORPUSCULAR HGB CONC 31.3 g/dl (32.0-36.5); MEAN CORPUSCULAR VOLUME 93.5 fl (80.0-96.0); MONO # 0.1 10^3/uL (0.0-0.8); NEUTROPHILS # 11.7 10^3/uL (1.5-8.5); NEUTROPHILS % 90.7 % (36.0-66.0); PLATELET COUNT, AUTOMATED 318 10^3/uL (150-450); RED BLOOD COUNT 4.44 10^6/uL (4.00-5.40); WHITE BLOOD COUNT 12.9 10^3/uL (4.0-10.0)
[2019-09-21 06:26] LABS: BLOOD UREA NITROGEN 14 MG/DL (7-18); CALCIUM LEVEL 9.4 MG/DL (8.5-10.1); CARBON DIOXIDE LEVEL 33 MEQ/L (21-32); CHLORIDE LEVEL 98 MEQ/L (98-107); CK-MB VALUE MASS 1.1 NG/ML (<3.6); CPK CREATINE PHOSPHOKINASE 53 U/L (26-192); CREATININE FOR GFR 0.84 MG/DL (0.55-1.30); GLOMERULAR FILTRATION RATE > 60.0 (>51); GLUCOSE, FASTING 205 MG/DL (70-100); MB/CK RELATIVE INDEX 2.08 (< OR =4); NT-PRO BNP 63 PG/ML (<125); POTASSIUM SERUM 4.2 MEQ/L (3.5-5.1); SODIUM LEVEL 137 MEQ/L (136-145); TROPONIN I < 0.02 NG/ML (< 0.10)
--- NOTE | 2019-09-21 06:33 | REP ---
Clinical: Hypoxia. Desaturation. Comparison: 09/20/2019 . Findings: The mediastinum and cardiac silhouette are stable and within normal limits for portable technique. The lung lee demonstrate chronic changes without acute consolidation, effusion, or pneumothorax. Skeletal structures are intact. Impression: No new acute cardiopulmonary process appreciated. Electronically Signed by Marcus Dacosta MD 09/21/2019 06:25 A
[2019-09-21] MEDS: TIOTROPIUM INHALER/CAPSULE (SPIRIVA) INH SCH (07:45)
[2019-09-21] MEDS: ENOXAPARIN 40 MG/0.4 ML SYRINGE (J1650) SC SCH (08:54)
[2019-09-21] MEDS: HumaLOG INSULIN (NovoLOG) PER UNIT SC SCH ×4 (08:54→20:32)
[2019-09-21] MEDS: SENNA 8.6 MG TAB (SENOKOT) PO SCH ×2 (08:55→20:31)
[2019-09-21] MEDS: GABAPENTIN 100 MG CAP PO SCH ×3 (08:55→20:31)
[2019-09-21] MEDS: predniSONE 10 MG TAB PO SCH (08:55)
[2019-09-21] MEDS: DOCUSATE SODIUM 100 MG CAP PO SCH ×2 (08:56→20:31)
[2019-09-21] MEDS: DULoxetine 30 MG CAP (CYMBALTA) PO SCH (08:56)
[2019-09-21] MEDS ORDERED: DULoxetine 30 MG CAP (CYMBALTA) PO SCH (09:00)
[2019-09-21] MEDS: MIRALAX *UNIT DOSE* 17GM PACKET PO SCH (09:00)
[2019-09-21] MEDS: MELOXICAM (MOBIC) 7.5 MG TAB PO SCH (12:06)
--- NOTE | 2019-09-21 13:33 | ECHO ---
DATE OF SERVICE: 09/21/2019 REFERRING PROVIDER: Dr. Mary Sanchez REASON FOR STUDY: Shortness of breath. 2D MEASUREMENTS: IVS: 1.1 cm LV: 3.4 cm LVPW: 0.9 cm LA: 2.5 cm Aorta: 2.6 cm IVC: 1.7 cm DOPPLER MEASUREMENTS: Peak velocity across the aortic valve: 1.8 m/s Peak velocity across the LVOT: 1.2 m/s Mitral E: 0.48 Mitral A: 0.74 with a ratio of 0.6 2D COMMENTS: 1. Technically limited study due to poor acoustic window, probably related to lung interference. 2. The left ventricular size is normal, and left ventricular systolic function also appeared to be normal, same for left ventricular wall thickness. The estimated ventricular systolic ejection fraction is about 60%. 3. The left atrium in limited views appear to be normal. 4. The atrial septum was not well visualized. 5. The right heart chambers were not well visualized. 6. The aortic root appeared to be normal in size in limited views. 7. Trace pericardial effusion noted, no evidence of cardiac component. 8. The cardiac valves were not well visualized but seems to be moving well. The pulmonic valve and the proximal pulmonary artery branches, however, were not visualized. 9. The inferior vena cava appeared to be normal in size, central venous pressure might be normal. DOPPLER: No significant valvular abnormalities detected. Abnormal relaxation pattern was noted across the mitral valve leaflets, as well as mitral valve annulus consistent with features of grade 1 left ventricular diastolic dysfunction. IMPRESSION: 1. Technically limited study due to poor acoustic window. 2. Normal global left ventricular systolic function. There are some features of grade 1 left ventricular diastolic dysfunction manifested by abnormal relaxation. 3. No significant valvular heart disease detected. 4. Trace pericardial effusion, no evidence of cardiac tamponade. 5. Please refer to above for more details.
--- NOTE | 2019-09-21 16:36 | IPNPDOC ---
Subjective Date Seen The patient was seen on 09/21/19. Subjective Chief Complaint/HPI Nursing reports that Ms. Reza's mentation has been improving today. The patient herself was a little confused with regards to why she was admitted to the hospital. She denies any significant concerns and reports she feels that she is on the right track to get better. General: Reports: Normal Appetite Constitutional: Denies: Chills, Fever Pulmonary: Reports: Dyspnea (chronic/stable); Denies: Pleuritic Chest Pain Cardiovascular: Denies: Chest Pain, Palpitations Gastrointestinal: Reports: Abdominal Pain, Constipation (she reports difficulty with being able to move her bowels recently) Psych: Reports: Memory Issues Objective Physical Examination General Exam: Positive: Alert, Cooperative (laying in her bed with head elevated watching TV when I entered the room), No Acute Distress Eye Exam: Positive: Conjunctiva & lids normal; Negative: Sclera icteric ENT Exam: Positive: Atraumatic, Mucous membr. moist/pink, Pharynx Normal Neck Exam: Positive: Supple; Negative: JVD, Lymphadenopathy Chest Exam: Positive: Diminished, Other (there were deep transmitted upper air way sounds); Negative: Rales, Rhonchi, Wheezing Heart Exam: Positive: Tachycardic, Regular Rhythm, Normal S1, Normal S2; Negative: Gallops, Murmurs, Rubs Telemetry: Positive: Sinus, Tachycardia Abdomen Exam: Positive: Normal bowel sounds, Soft, Tenderness (on deep palpation in the periumbilical region. No rebound tenderness.), Other (obese) Extremity Exam: Negative: Clubbing, Cyanosis, Edema Skin Exam: Positive: Nl turgor and temperature; Negative: Breakdown Neuro Exam: Positive: Normal Speech, Normal Tone, Sensation Intact Psych Exam: Positive: Mood NL, Oriented x 3 Assessment /Plan Problems (1) Acute metabolic encephalopathy Status: Acute Response to Treatment: Improving Discussed With: Nurse, Patient, Family with Pt Consent Problem Specific Plan: Monitor Clinically Problem Text: No specific organic cause was discovered for her metabolic encephalopathy. I do believe this probably relates to her colitis. She seems to be improving (she knew we recently celebrated Thanksgiving and was oriented 3 when I examined her). Her family reports she is not at baseline yet. We'll continue to treat the presumed underlying cause and monitor. (2) Colitis presumed infectious Status: Acute Discussed With: Patient, Family with Pt Consent Problem Specific Plan: Monitor Clinically, Repeat Labs Problem Text: This was noted on CT. I suspect this is the underlying cause of her metabolic encephalopathy. I believe that as we improve her infection/colitis her encephalopathy will clear too. She is currently on IV Cipro and Flagyl. I will consider changing this to orals tomorrow if she continues to improve. (3) COPD (chronic obstructive pulmonary disease) Status: Chronic Response to Treatment: Stable Problem Specific Plan: Monitor Clinically Problem Text: She has COPD and certainly produces more mucus than normal. I do hear this rattling around in her upper airways, but I don't think that she is exacerbated. I do not hear wheezes or rales as specifically adventitial sounds. Continue current regimen, monitor. (4) Depression Status: Chronic Problem Specific Plan: Monitor Clinically Problem Text: When she was admitted for encephalopathy her Paxil dose was decr eased from 40 mg talk to 20 mg and her olanzapine dose was decreased from 5 mg to 2.5 mg. Now that we have a presumed cause of the encephalopathy I'm going to increase her Paxil back to 40 mg tonight. I'll leave the olanzapine a lower dose to see if she can tolerate this. (5) Chronic pain syndrome Status: Chronic Problem Specific Plan: Monitor Clinically Problem Text: Her gabapentin and Cymbalta were also decreased when she was admitted with encephalopathy. Her home dose of gabapentin is 600 mg 3 times a day. She was reduced to 200 mg 3 times a day. I will put her back to 400 mg 3 times a day starting tomorrow. We'll monitor. (6) Type 2 diabetes mellitus Status: Chronic Problem Specific Plan: Repeat Tests Problem Text: Her blood glucose levels are in the high 100s and she is on insulin sliding scale. We will continue her current regimen for now. Plan/VTE VTE Prophylaxis Ordered?: Yes (Lovenox) VS, I&O, 24H, Fishbone Vital Signs/I&O Vital Signs Date Time Temp Pulse Resp B/P (MAP) Pulse Ox O2 Delivery O2 Flow Rate FiO2 09/21/19 16:00 97.9 126 18 153/79 (103) 92 Nasal Cannula 3.0 09/21/19 08:02 I&O- Last 24 Hours up to 6 AM 09/21/19 06:00 Intake Total 550 ml Balance 550 ml Laboratory Data 24H LABS Laboratory Tests 2 09/20/19 17:29: Urine Color YELLOW, Urine Appearance CLOUDYH, Urine pH 7.0, Urine Specific [place] 1.021, Urine Protein NEGATIVE, Urine Glucose (UA) NEGATIVE, Urine Ketones 2+H, Urine Blood NEGATIVE, Urine Nitrite NEGATIVE, Urine Bilirubin NEGATIVE, Urine Urobilinogen 0.2, Urine Leukocyte Esterase NEGATIVE, Urine WBC (Auto) 2, Urine RBC (Auto) 5H, Urine Hyaline Casts (Auto) 0, Urine Bacteria (Auto) NEGATIVE, Urine Squamous Epithelial Cells 1, Urine Sperm (Auto) 09/20/19 23:06: Bedside Glucose (Misc Panel) 197H 09/21/19 05:40: Immature Granulocyte % (Auto) 1.1, Neutrophils (%) (Auto) 90.7H, Lymphocytes (%) (Auto) 7.1L, Monocytes (%) (Auto) 1.0, Eosinophils (%) (Auto) 0.0, Basophils (%) (Auto) 0.1, Neutrophils # (Auto) 11.7H, Lymphocytes # (Auto) 0.9L, Monocytes # (Auto) 0.1, Eosinophils # (Auto) 0.0, Basophils # (Auto) 0.0, Nucleated Red Blood Cells % (auto) 0.0, Anion Gap 6L, Glomerular Filtration Rate > 60.0, Calc ium Level 9.4, Total Creatine Kinase 53, Creatine Kinase MB 1.1, Creatine Kinase MB Relative Index 2.08, Troponin I < 0.02, PC-Vlr-D-Type Natriuretic Peptide 63 09/21/19 05:42: Blood Gas Bicarbonate Standard 31.1H, Arterial Blood pH 7.394, Arterial Blood Partial Pressure CO2 57.0H, Arterial Blood Partial Pressure O2 94.6, Arterial Blood Total CO2 35.8H, Arterial Blood HCO3 34.0H, Arterial Blood Base Excess 7.3H, Arterial Blood Oxygen Saturation 97.4 09/21/19 11:37: Bedside Glucose (Misc Panel) 212H CBC/BMP Laboratory Tests 09/21/19 05:40 Microbiology Microbiology 09/20/19 Gram Stain - Final, Complete 09/20/19 Sputum Culture - Final, Complete 09/20/19 Respiratory Virus Panel (PCR) ([facility]) - Final, Complete 09/20/19 Blood Culture - Preliminary, Resulted No growth after 24 hours . All specim... 09/20/19 Blood Culture - Preliminary, Resulted No growth after 24 hours . All specim... Antonio Jones MD Sep 21, 2019 4:36 pm
[2019-09-21] MEDS: cefTRIAXone SOD 1 GM in D5W MINI-BAG PLUS 50 ML IV SCH (17:01)
[2019-09-21] MEDS: PANTOPRAZOLE 40MG INJ (PROTONIX) (C9113) IV SCH (20:30)
[2019-09-21] MEDS: ATORVASTATIN 20 MG TAB PO SCH (20:31)
[2019-09-21] MEDS: PARoxetine 20 MG TAB PO SCH (20:32)
--- NOTE | 2019-09-21 22:15 | ECGEPIP ---
[facility] Test Date: 2019-09-21 Pat Name: ARTHUR ALSTON Department: Room: B2099-59 Gender: Female Provider Relations Consultant: : [id number] Requested By: PARRIS ARENAS Order Number: [id number] Reading MD: Juan R Jarrett Measurements Intervals [place] Rate: 136 P: 73 ME: 149 QRS: 68 QRSD: 66 T: 75 QT: 283 QTc: 426 Interpretive Statements SINUS TACHYCARDIA ABNORMAL RHYTHM ECG LAST 2 TRACINGS EARLIER THIS MONTH, NO REMARKABLE CHANGES BUT PATIENT IS MORE TACHYCARDIC Electronically Signed on 09-21-2019 22:15:28 EST by Juan R Jarrett
[2019-09-22] VITALS (9 sets, daily range): BP systolic 130–142; BP diastolic 61–80; O2SAT 92–97
[2019-09-22] MEDS: metroNIDAZOLE 500 MG in IV 1 EA IV SCH ×3 (03:17→17:13)
[2019-09-22 05:13] LABS: BASO % 0.3 % (0.0-1.0); EOS # 0.1 10^3/uL (0.0-0.5); EOS % 0.8 % (0.0-3.0); HEMATOCRIT 45.2 % (36.0-47.0); HEMOGLOBIN 13.4 g/dl (12.0-15.5); LYMPH # 2.5 10^3/uL (1.5-5.0); LYMPH % 22.3 % (24.0-44.0); MEAN CORPUSCULAR HEMOGLOBIN 28.6 pg (27.0-33.0); MEAN CORPUSCULAR HGB CONC 29.6 g/dl (32.0-36.5); MEAN CORPUSCULAR VOLUME 96.6 fl (80.0-96.0); MONO # 0.9 10^3/uL (0.0-0.8); MONO % 7.9 % (0.0-5.0); NEUTROPHILS # 7.6 10^3/uL (1.5-8.5); PLATELET COUNT, AUTOMATED 285 10^3/uL (150-450); RED BLOOD COUNT 4.68 10^6/uL (4.00-5.40); WHITE BLOOD COUNT 11.2 10^3/uL (4.0-10.0)
[2019-09-22 05:38] LABS: CALCIUM LEVEL 8.9 MG/DL (8.5-10.1); CREATININE FOR GFR 1.08 MG/DL (0.55-1.30); GLOMERULAR FILTRATION RATE 55.5 (>51); POTASSIUM SERUM 3.4 MEQ/L (3.5-5.1)
[2019-09-22] MEDS: LEVOTHYROXINE 25MCG TABLET (0.025MG) PO SCH (06:01)
[2019-09-22] MEDS: ALBUTEROL SULFATE 2.5 MG/0.5 ML INH NEB SOLN NEB SCH ×3 (07:45→23:29)
[2019-09-22] MEDS: ADVAIR HFA 230/21MCG INHALER INH SCH ×2 (07:45→19:44)
[2019-09-22] MEDS: TIOTROPIUM INHALER/CAPSULE (SPIRIVA) INH SCH (07:45)
--- NOTE | 2019-09-22 08:20 | REP ---
Clinical: Hypoxia. Comparison: 09/21/2019. Findings: Subtle left lower lobe and filtrate and small left pleural effusion. Underlying chronic stable interstitial changes. Cardiac silhouette is normal. No pneumothorax. Skeletal structures stable. Impression: Small left lower lobe infiltrate and small left pleural effusion. Electronically Signed by Marcus Dacosta MD 09/22/2019 08:12 A
[2019-09-22] MEDS: DULoxetine 30 MG CAP (CYMBALTA) PO SCH (08:24)
[2019-09-22] MEDS: HumaLOG INSULIN (NovoLOG) PER UNIT SC SCH ×4 (08:24→20:27)
[2019-09-22] MEDS: predniSONE 10 MG TAB PO SCH (08:24)
[2019-09-22] MEDS: DOCUSATE SODIUM 100 MG CAP PO SCH ×2 (08:24→20:24)
[2019-09-22] MEDS: MELOXICAM (MOBIC) 7.5 MG TAB PO SCH (08:25)
[2019-09-22] MEDS: SENNA 8.6 MG TAB (SENOKOT) PO SCH ×2 (08:25→20:25)
[2019-09-22] MEDS: ENOXAPARIN 40 MG/0.4 ML SYRINGE (J1650) SC SCH (08:25)
[2019-09-22] MEDS: VARENICLINE 1 MG TABLET PO SCH ×2 (09:00→20:25)
[2019-09-22] MEDS ORDERED: GABAPENTIN 400 MG CAP PO SCH (09:00)
[2019-09-22] MEDS: MIRALAX *UNIT DOSE* 17GM PACKET PO SCH (09:00)
--- NOTE | 2019-09-22 15:03 | IPNPDOC ---
Subjective Date Seen The patient was seen on 09/22/19. Subjective Chief Complaint/HPI Ms. Reza reports that her mentation has basically cleared all the way up; she had insight into the fact that her thought were confused on admission. She is not having any abdominal pain now and this was a symptoms that plagued her for some weeks before admission. Nursing did call that she was very tachycardic while up and walking around last night, but it was always sinus and resolved (to her baseline heart rate which is already elevated) when she was resting again. She didn't have any chest pain associated with these episodes. Constitutional: Denies: Chills, Fever Pulmonary: Reports: Dyspnea (chronic/stable), Cough (chronic stable); Denies: Pleuritic Chest Pain Cardiovascular: Denies: Chest Pain, Palpitations Gastrointestinal: Denies: Nausea, Vomiting, Abdominal Pain, Diarrhea Psych: Reports: Mood Normal Objective Physical Examination General Exam: Positive: Alert, Cooperative (sitting at her window watching it snow when I entered the room.), No Acute Distress Eye Exam: Positive: Conjunctiva & lids normal; Negative: Sclera icteric ENT Exam: Positive: Mucous membr. moist/pink, Tongue Midline Neck Exam: Positive: Supple; Negative: Lymphadenopathy Chest Exam: Positive: Diminished, Other (there were deep transmitted upper airway sounds); Negative: Rales, Rhonchi, Wheezing Heart Exam: Positive: Tachycardic, Regular Rhythm, Normal S1, Normal S2; Negative: Gallops, Murmurs, Rubs Telemetry: Positive: Sinus, Tachycardia Abdomen Exam: Positive: Normal bowel sounds, Soft, Other (obese); Negative: Tenderness Extremity Exam: Negative: Clubbing, Cyanosis, Edema Neuro Exam: Positive: Normal Speech, Normal Tone, Sensation Intact Psych Exam: Positive: Mood NL, Oriented x 3 Assessment /Plan Problems (1) Colitis presumed infectious Status: Acute Discussed With: Patient, Family with Pt Consent Problem Specific Plan: Monitor Clinically, Repeat Labs Problem Text: This was noted on CT. I suspect this is the underlying cause of her metabolic encephalopathy. I believe that as we improve her infection/colitis her encephalopathy will clear too. She is currently on IV Rocephin and Flagyl. I was going to change her to orals today, but her WCB didn't improve as robustly as I would have liked to. I will leave her on the IV abx today and will consider changing this to orals tomorrow if she continues to improve. (2) Acute metabolic encephalopathy Status: Resolved Discussed With: Nurse, Patient Problem Specific Plan: Monitor Clinically Problem Text: I still believe this probably relates to her colitis, and the symptom has resolved now. (3) COPD (chronic obstructive pulmonary disease) Status: Chronic Response to Treatment: Stable Problem Specific Plan: Monitor Clinically Problem Text: She has COPD and certainly produces more mucus than normal. I do hear this rattling around in her upper airways, but I don't think that she is exacerbated. I do not hear wheezes or rales as specifically adventitial sounds. Continue current regimen, monitor. (4) Tachycardia Discussed With: Nurse Problem Text: I suspect that all the tachycardia we are seeing is physiologic. She has COPD and is likely physically deconditioned. I think that 110s and 120s are what her body needs to extract the oxygen efficiently. We will monitor her heart rate. (5) Depression Status: Chronic Problem Specific Plan: Monitor Clinically Problem Text: When she was admitted for encephalopathy her Paxil dose was decreased from 40 mg talk to 20 mg and her olanzapine dose was decreased from 5 mg to 2.5 mg. Now that we have a presumed cause of the encephalopathy I have increase her Paxil back to her usual dose of 40 mg and she seems to be tolerating it well. I'll leave the olanzapine a lower dose to see if she can tolerate this. (6) Chronic pain syndrome Status: Chronic Problem Specific Plan: Monitor Clinically Problem Text: Her gabapentin and Cymbalta were also decreased when she was admitted with encephalopathy. Her home dose of gabapentin is 600 mg 3 times a day. She was reduced to 200 mg 3 times a day. I will put her back to 400 mg 3 times a day today. She has tolerated this well and has not had any more episodes of encephalopathy. I will resume her usual home doses of gabapentin and Cymbalta starting tomorrow. We'll monitor. (7) Type 2 diabetes mellitus Status: Chronic Problem Specific Plan: Repeat Tests Problem Text: Her blood glucose levels are in the high 100s and she is on insulin sliding scale. We will continue her current regimen for now. Plan/VTE VTE Prophylaxis Ordered?: Yes (Lovenox) VS, I&O, 24H, Fishbone Vital Signs/I&O Vital Signs Date Time Temp Pulse Resp B/P (MAP) Pulse Ox O2 Delivery O2 Flow Rate FiO2 09/22/19 12:00 4.0 09/22/19 12:00 97.2 118 16 130/72 (91) 94 Nasal Cannula 09/21/19 08:02 I&O- Last 24 Hours up to 6 AM 09/22/19 06:00 Intake Total 740 ml Output Total 950 ml Balance -210 ml Laboratory Data 24H LABS Laboratory Tests 2 09/21/19 16:48: Bedside Glucose (Misc Panel) 193H 09/21/19 20:21: Bedside Glucose (Misc Panel) 172H 09/22/19 04:47: Immature Granulocyte % (Auto) 0.7, Neutrophils (%) (Auto) 68.0H, Lymphocytes (%) (Auto) 22.3L, Monocytes (%) (Auto) 7.9H, Eosinophils (%) (Auto) 0.8, Basophils (%) (Auto) 0.3, Neutrophils # (Auto) 7.6, Lymphocytes # (Auto) 2.5, Monocytes # (Auto) 0.9H, Eosinophils # (Auto) 0.1, Basophils # (Auto) 0.0, Nucleated Red Blood Cells % (auto) 0.0, Anion Gap 6L, Glomerular Filtration Rate 55.5, Calcium Level 8.9 09/22/19 11:34: Bedside Glucose (Misc Panel) 168H CBC/BMP Laboratory Tests 09/22/19 04:47 Microbiology Microbiology 09/20/19 Gram Stain - Final, Complete 09/20/19 Sputum Culture - Final, Complete 09/20/19 Respiratory Virus Panel (PCR) ([facility]) - Final, Complete 09/20/19 Blood Culture - Preliminary, Resulted No growth after 24 hours . All specim... 09/20/19 Blood Culture - Preliminary, Resulted No growth after 24 hours . All specim... Antonio Jones MD Sep 22, 2019 3:03 pm
[2019-09-22 15:32] LABS: C REACTIVE PROTEIN QUANTITATIV 1.33 MG/DL (0.00-0.30)
[2019-09-22] MEDS: cefTRIAXone SOD 1 GM in D5W MINI-BAG PLUS 50 ML IV SCH (16:31)
[2019-09-22] MEDS: GABAPENTIN 300 MG CAP PO SCH ×2 (16:31→20:25)
[2019-09-22] MEDS: PARoxetine 20 MG TAB PO SCH (20:24)
[2019-09-22] MEDS: ATORVASTATIN 20 MG TAB PO SCH (20:25)
[2019-09-22] MEDS: PANTOPRAZOLE 40MG INJ (PROTONIX) (C9113) IV SCH (20:25)
[2019-09-22] MEDS: OLANZapine 2.5MG TABLET PO SCH (20:27)
[2019-09-23] MEDS: metroNIDAZOLE 500 MG in IV 1 EA IV SCH (02:12)
[2019-09-23 04:00] VITALS: BP 140/93
[2019-09-23] MEDS: LEVOTHYROXINE 25MCG TABLET (0.025MG) PO SCH (05:00)
[2019-09-23 05:13] LABS: BASO % 0.2 % (0.0-1.0); EOS # 0.3 10^3/uL (0.0-0.5); EOS % 2.9 % (0.0-3.0); HEMOGLOBIN 12.7 g/dl (12.0-15.5); LYMPH # 2.1 10^3/uL (1.5-5.0); LYMPH % 23.9 % (24.0-44.0); MEAN CORPUSCULAR HEMOGLOBIN 29.2 pg (27.0-33.0); MEAN CORPUSCULAR HGB CONC 29.5 g/dl (32.0-36.5); MEAN CORPUSCULAR VOLUME 98.9 fl (80.0-96.0); MONO # 0.8 10^3/uL (0.0-0.8); MONO % 8.9 % (0.0-5.0); NEUTROPHILS # 5.6 10^3/uL (1.5-8.5); NEUTROPHILS % 63.3 % (36.0-66.0); PLATELET COUNT, AUTOMATED 256 10^3/uL (150-450); RED BLOOD COUNT 4.35 10^6/uL (4.00-5.40); WHITE BLOOD COUNT 8.8 10^3/uL (4.0-10.0)
[2019-09-23 05:36] LABS: ALBUMIN 2.9 GM/DL (3.2-5.2); ALT/SGPT 36 U/L (12-78); BILIRUBIN,TOTAL 0.3 MG/DL (0.2-1.0); BLOOD UREA NITROGEN 23 MG/DL (7-18); C REACTIVE PROTEIN QUANTITATIV 1.03 MG/DL (0.00-0.30); CALCIUM LEVEL 8.4 MG/DL (8.5-10.1); CARBON DIOXIDE LEVEL 34 MEQ/L (21-32); CHLORIDE LEVEL 101 MEQ/L (98-107); CREATININE FOR GFR 0.92 MG/DL (0.55-1.30); GLOMERULAR FILTRATION RATE > 60.0 (>51); GLUCOSE, FASTING 192 MG/DL (70-100); POTASSIUM SERUM 3.1 MEQ/L (3.5-5.1); SODIUM LEVEL 140 MEQ/L (136-145); TOTAL PROTEIN 6.9 GM/DL (6.4-8.2)
[2019-09-23] MEDS: TIOTROPIUM INHALER/CAPSULE (SPIRIVA) INH SCH (07:27)
[2019-09-23] MEDS: ADVAIR HFA 230/21MCG INHALER INH SCH ×2 (07:28→20:14)
[2019-09-23] MEDS: ALBUTEROL SULFATE 2.5 MG/0.5 ML INH NEB SOLN NEB SCH ×3 (07:30→23:44)
[2019-09-23 07:39] VITALS: BP 132/101
[2019-09-23] MEDS: MIRALAX *UNIT DOSE* 17GM PACKET PO SCH (08:34)
[2019-09-23] MEDS: HumaLOG INSULIN (NovoLOG) PER UNIT SC SCH ×4 (08:34→21:00)
[2019-09-23] MEDS: VARENICLINE 1 MG TABLET PO SCH ×2 (08:35→22:01)
[2019-09-23] MEDS: ENOXAPARIN 40 MG/0.4 ML SYRINGE (J1650) SC SCH (08:35)
[2019-09-23] MEDS: MELOXICAM (MOBIC) 7.5 MG TAB PO SCH (08:35)
[2019-09-23] MEDS: DOCUSATE SODIUM 100 MG CAP PO SCH ×2 (08:35→22:00)
[2019-09-23] MEDS: DULoxetine 30 MG CAP (CYMBALTA) PO SCH (08:36)
[2019-09-23] MEDS: SENNA 8.6 MG TAB (SENOKOT) PO SCH ×2 (08:37→22:02)
[2019-09-23] MEDS: GABAPENTIN 300 MG CAP PO SCH ×3 (08:37→22:01)
[2019-09-23] MEDS: predniSONE 10 MG TAB PO SCH (08:37)
--- NOTE | 2019-09-23 10:21 | IPNPDOC ---
Subjective Date Seen The patient was seen on 09/23/19. Subjective Chief Complaint/HPI Pt this morning states that she is feeling much better. She denies abd pain, nausea. She ate breakfast well. She wants to go home. Constitutional: Denies: Chills, Fever Pulmonary: Denies: Dyspnea, Cough Cardiovascular: Denies: Chest Pain, Palpitations Gastrointestinal: Denies: Nausea, Diarrhea Neurological: Reports: Weakness Psych: Reports: Mood Normal Objective Physical Examination General Exam: Positive: Alert, No Acute Distress Eye Exam: Negative: Sclera icteric ENT Exam: Positive: Mucous membr. moist/pink Neck Exam: Positive: Supple; Negative: Lymphadenopathy Chest Exam: Positive: Diminished, Other (there were deep transmitted upper airway sounds); Negative: Rales, Rhonchi, Wheezing Heart Exam: Positive: Tachycardic, Regular Rhythm, Normal S1, Normal S2; Negative: Gallops, Murmurs, Rubs Telemetry: Positive: Sinus, Tachycardia Abdomen Exam: Positive: Normal bowel sounds, Soft, Other (obese); Negative: Tenderness Extremity Exam: Negative: Clubbing, Cyanosis, Edema Neuro Exam: Positive: Normal Speech, Normal Tone, Sensation Intact Psych Exam: Positive: Mood NL, Oriented x 3 Assessment /Plan Problems (1) Colitis presumed infectious Status: Acute Discussed With: Patient, Family with Pt Consent Problem Specific Plan: Monitor Clinically, Repeat Labs Problem Text: 09/23 Will change rocephin/Flagyl to Cefdinir/flagyl PO. WBC normalized, remains afebrile. Anticipate DC home in AM if safe per PT. 09/[address] on [address]. I suspect this is the underlying cause of her metabolic encephalopathy. I believe that as we improve her infection/colitis her encephalopathy will clear too. She is currently on IV Rocephin and Flagyl. I was going to change her to orals today, but her WCB didn't improve as robustly as I would have liked to. I will leave her on the IV abx today and will consider changing this to orals tomorrow if she continues to improve. (2) Acute metabolic encephalopathy Status: Resolved Discussed With: Nurse, Patient Problem Specific Plan: Monitor Clinically Problem Text: I still believe this probably relates to her colitis, and the symptom has resolved now. (3) COPD (chronic obstructive pulmonary disease) Status: Chronic Response to Treatment: Stable Problem Specific Plan: Monitor Clinically Problem Text: She has COPD and certainly produces more mucus than normal. I do hear this rattling around in her upper airways, but I don't think that she is exacerbated. I do not hear wheezes or rales as specifically adventitial sounds. Continue current regimen, monitor. (4) Tachycardia Discussed With: Nurse Problem Text: I suspect that all the tachycardia we are seeing is physiologic. She has COPD and is likely physically deconditioned. I think that 110s and 120s are what her body needs to extract the oxygen efficiently. We will monitor her heart rate. (5) Depression Status: Chronic Problem Specific Plan: Monitor Clinically Problem Text: When she was admitted for encephalopathy her Paxil dose was decreased from 40 mg talk to 20 mg and her olanzapine dose was decreased from 5 mg to 2.5 mg. Now that we have a presumed cause of the encephalopathy I have increase her Paxil back to her usual dose of 40 mg and she seems to be tolerating it well. I'll leave the olanzapine a lower dose to see if she can tolerate this. (6) Chronic pain syndrome Status: Chronic Problem Specific Plan: Monitor Clinically Problem Text: Her gabapentin and Cymbalta were also decreased when she was admitted with encephalopathy. Her home dose of gabapentin is 600 mg 3 times a day. She was reduced to 200 mg 3 times a day. I will put her back to 400 mg 3 times a day today. She has tolerated this well and has not had any more episodes of encephalopathy. I will resume her usual home doses of gabapentin and Cymbalta starting tomorrow. We'll monitor. (7) Type 2 diabetes mellitus Status: Chronic Problem Specific Plan: Repeat Tests Problem Text: Her blood glucose levels are in the high 100s and she is on insulin sliding scale. We will continue her current regimen for now. Plan/VTE VTE Prophylaxis Ordered?: Yes (Lovenox) VS, I&O, 24H, Fishbone Vital Signs/I&O Vital Signs Date Time Temp Pulse Resp B/P (MAP) Pulse Ox O2 Delivery O2 Flow Rate FiO2 09/23/19 08:00 3.0 09/23/19 07:39 97.2 118 18 132/101 (111) 93 Nasal Cannula 09/21/19 08:02 I&O- Last 24 Hours up to 6 AM0 09/23/19 06:00 Intake Total 1250 ml Output Total 50 ml Balance 1200 ml Laboratory Data 24H LABS Laboratory Tests 2 09/22/19 11:34: Bedside Glucose (Misc Panel) 168H 09/22/19 16:24: Bedside Glucose (Misc Panel) 170H 09/22/19 20:27: Bedside Glucose (Misc Panel) 141H 09/23/19 04:57: Immature Granulocyte % (Auto) 0.8, Neutrophils (%) (Auto) 63.3, Lymphocytes (%) (Auto) 23.9L, Monocytes (%) (Auto) 8.9H, Eosinophils (%) (Auto) 2.9, Basophils (%) (Auto) 0.2, Neutrophils # (Auto) 5.6, Lymphocytes # (Auto) 2.1, Monocytes # (Auto) 0.8, Eosinophils # (Auto) 0.3, Basophils # (Auto) 0.0, Nucleated Red Blood Cells % (auto) 0.0, Anion Gap 5L, Glomerular Filtration Rate > 60.0, Calcium Level 8.4L, Total Bilirubin 0.3, Aspartate Amino Transf (AST/SGOT) 18, Alanine Aminotransferase (ALT/SGPT) 36, Alkaline Phosphatase 92, C-Reactive Protein, Quantitative 1.03H, Total Protein 6.9, Albumin 2.9L, Albumin/Globulin Ratio 0.73L CBC/BMP Laboratory Tests 09/23/19 04:57 Microbiology Microbiology 09/20/19 Gram Stain - Final, Complete 09/20/19 Sputum Culture - Final, Complete 09/20/19 Respiratory Virus Panel (PCR) ([facility]) - Final, Complete 09/20/19 Blood Culture - Preliminary, Resulted No Growth after 48 hours. All Specime... 09/20/19 Blood Culture - Preliminary, Resulted No Growth after 48 hours. All Specime... DELANEY JEAN PA-C Sep 23, 2019 10:21
[2019-09-23] MEDS ORDERED: SLF 3 ML SYR IV PRN (10:30)
[2019-09-23] MEDS: CEFDINIR 300 MG CAP (OMNICEF) PO SCH ×2 (10:33→22:04)
[2019-09-23 12:00] VITALS: BP 149/78
[2019-09-23] MEDS: SLF 3 ML SYR IV SCH ×2 (14:58→22:04)
[2019-09-23] MEDS: metroNIDAZOLE (FLAGYL) 500 MG TAB PO SCH ×2 (14:58→22:01)
[2019-09-23] MEDS: POTASSIUM CHLORIDE 10 MEQ SR TABLET PO SCH ×2 (17:49→19:15)
[2019-09-23 20:00] VITALS: BP 153/75
[2019-09-23] MEDS: OLANZapine 2.5MG TABLET PO SCH (21:00)
[2019-09-23] MEDS: PANTOPRAZOLE 40MG INJ (PROTONIX) (C9113) IV SCH (22:00)
[2019-09-23] MEDS: ATORVASTATIN 20 MG TAB PO SCH (22:00)
[2019-09-23] MEDS: PARoxetine 20 MG TAB PO SCH (22:01)
[2019-09-24] VITALS: BP 140/90
[2019-09-24 05:59] LABS: BASO % 0.3 % (0.0-1.0); EOS # 0.3 10^3/uL (0.0-0.5); EOS % 3.1 % (0.0-3.0); HEMATOCRIT 39.1 % (36.0-47.0); HEMOGLOBIN 11.9 g/dl (12.0-15.5); LYMPH # 2.2 10^3/uL (1.5-5.0); LYMPH % 27.2 % (24.0-44.0); MEAN CORPUSCULAR HEMOGLOBIN 29.2 pg (27.0-33.0); MEAN CORPUSCULAR HGB CONC 30.4 g/dl (32.0-36.5); MEAN CORPUSCULAR VOLUME 96.1 fl (80.0-96.0); MONO # 0.7 10^3/uL (0.0-0.8); MONO % 8.3 % (0.0-5.0); NEUTROPHILS # 4.8 10^3/uL (1.5-8.5); NEUTROPHILS % 60.1 % (36.0-66.0); PLATELET COUNT, AUTOMATED 243 10^3/uL (150-450); RED BLOOD COUNT 4.07 10^6/uL (4.00-5.40)
[2019-09-24 06:00] LABS: BLOOD UREA NITROGEN 15 MG/DL (7-18); CALCIUM LEVEL 8.6 MG/DL (8.5-10.1); CARBON DIOXIDE LEVEL 34 MEQ/L (21-32); CHLORIDE LEVEL 103 MEQ/L (98-107); GLOMERULAR FILTRATION RATE > 60.0 (>51); GLUCOSE, FASTING 159 MG/DL (70-100); SODIUM LEVEL 142 MEQ/L (136-145)
[2019-09-24] MEDS: metroNIDAZOLE (FLAGYL) 500 MG TAB PO SCH (06:04)
[2019-09-24] MEDS: LEVOTHYROXINE 25MCG TABLET (0.025MG) PO SCH (06:04)
[2019-09-24] MEDS: SLF 3 ML SYR IV SCH (06:04)
[2019-09-24 07:11] VITALS: BP 131/72
[2019-09-24] MEDS: ADVAIR HFA 230/21MCG INHALER INH SCH (07:34)
[2019-09-24] MEDS: TIOTROPIUM INHALER/CAPSULE (SPIRIVA) INH SCH (07:35)
[2019-09-24] MEDS: ALBUTEROL SULFATE 2.5 MG/0.5 ML INH NEB SOLN NEB SCH (07:36)
[2019-09-24] MEDS: HumaLOG INSULIN (NovoLOG) PER UNIT SC SCH ×2 (08:06→12:00)
[2019-09-24] MEDS: MIRALAX *UNIT DOSE* 17GM PACKET PO SCH (08:06)
[2019-09-24] MEDS: ENOXAPARIN 40 MG/0.4 ML SYRINGE (J1650) SC SCH (08:06)
[2019-09-24] MEDS: CEFDINIR 300 MG CAP (OMNICEF) PO SCH (08:07)
[2019-09-24] MEDS: GABAPENTIN 300 MG CAP PO SCH (08:07)
[2019-09-24] MEDS: MELOXICAM (MOBIC) 7.5 MG TAB PO SCH (08:08)
[2019-09-24] MEDS: DULoxetine 30 MG CAP (CYMBALTA) PO SCH (08:08)
[2019-09-24] MEDS: SENNA 8.6 MG TAB (SENOKOT) PO SCH (08:08)
[2019-09-24] MEDS: VARENICLINE 1 MG TABLET PO SCH (08:08)
[2019-09-24] MEDS: DOCUSATE SODIUM 100 MG CAP PO SCH (08:08)
[2019-09-24] MEDS: predniSONE 10 MG TAB PO SCH (08:09)
[2019-09-24] MEDS ORDERED: FLAG500T PO (10:54)
[2019-09-24] MEDS ORDERED: CEFD300CAP PO (10:54)
--- NOTE | 2019-09-24 11:36 | DSES ---
DATE OF ADMISSION: 09/20/2019 DATE OF DISCHARGE: 09/24/2019 PRIMARY CARE PROVIDER (PCP): Carolina Zapata ATTENDING TODAY: Dr. Tim Spencer HISTORY: This is a 59-year-old female patient who presented to [facility] Emergency Room with increasing confusion, abdominal pain, and nausea for several weeks. The patient has a history of chronic constipation. Abdominal pain was located in the periumbilical region, dull and aching, crampy, associated with nausea and persistent constipation. She was evaluated in the emergency room and felt to have acute metabolic encephalopathy. Etiology of this was initially unclear, although CT of the abdomen and pelvis was obtained later that day suggestive of colitis and, therefore, likely this is secondary to colitis, in light of some abnormalities to the liver suggestive of cirrhosis compounding her condition. She was started on intravenous (IV) Flagyl and Rocephin. Patient has tolerated this well. Her mental status has returned to baseline, and her abdominal pain has resolved. Her respiratory status has remained stable. She has been seen by physical therapy and is moving about the room independently. Has been cleared by physical therapy. She lives at home with her daughter. Her discharge diagnoses include: Colitis. Acute metabolic encephalopathy. Chronic obstructive pulmonary disease (COPD). End stage lung disease. Tachycardia. Depression. Chronic pain syndrome. Type 2 diabetes mellitus. DISCHARGE MEDICATIONS: Include; - Chantix 1 mg by mouth twice a day - Incruse Ellipta 62.5 one puff daily - Advair 500/50 one puff twice a day - prednisone 10 mg daily - Trulance 3 mg daily - paroxetine 40 mg daily - oxycodone 5 mg by mouth twice a day as needed for pain - Zyprexa 5 mg by mouth nightly - meloxicam 15 mg daily - levothyroxine 25 mcg daily - gabapentin 600 mg by mouth three times a day - duloxetine 60 mg daily - Dexilant 60 mg daily - atorvastatin 20 mg by mouth nightly - Ventolin two puffs inhaled every 4 hours as needed for wheezing - albuterol sulfate nebulizer every 4 hours as needed for shortness of breath - metronidazole 500 mg every 8 hours times 7 days - cefdinir 300 mg by mouth twice a day Her discharge plan is to followup with me in 1 week. Her activity is as tolerated. Her diet is consistent carbohydrate, no added salt. edited: 09/24/2019 1526 tkf ELVIA
== END 2019-09-24 13:35 | disposition home or self-care (01) | DRG 391 ==
LOC: M ED 14:30 → M ED INP 19:42 → M MSPAV 22:34 → M PCU 09-21 06:00
PROVIDERS: ADMIT Internal Medicine Nephrology; ATTEND Family Medicine
DX: A09 Infectious gastroenteritis and colitis, unspecified (principal); G93.41 Metabolic encephalopathy; J96.11 Chronic respiratory failure with hypoxia; E66.9 Obesity, unspecified; J44.9 Chronic obstructive pulmonary disease, unspecified; M54.2 Cervicalgia; F32.9 Major depressive disorder, single episode, unspecified; K59.09 Other constipation; E78.5 Hyperlipidemia, unspecified; I10 Essential (primary) hypertension; K21.9 Gastro-esophageal reflux disease without esophagitis; N39.3 Stress incontinence (female) (male); G25.0 Essential tremor; G43.909 Migraine, unspecified, not intractable, without status migrainosus; Z98.1 Arthrodesis status; Z96.652 Presence of left artificial knee joint; Z87.891 Personal history of nicotine dependence; K74.60 Unspecified cirrhosis of liver; G89.4 Chronic pain syndrome; E11.9 Type 2 diabetes mellitus without complications; Z68.35 Body mass index [BMI] 35.0-35.9, adult; Z99.81 Dependence on supplemental oxygen; Z79.52 Long term (current) use of systemic steroids; Z79.891 Long term (current) use of opiate analgesic; Z79.899 Other long term (current) drug therapy

== ENCOUNTER → 2019-11-14 | Outpatient (CLI) | payer MEDICARE, MEDICAID ==
[~2019-11-14] MED LIST changes: +ALBU83IN INH; +CEFD300CAP PO; +CEFU1TAB22 PO; +FLAG500T PO; +FURO40TA2 PO; +PRED20TA PO
[2019-11-14 19:51] LABS: BASO % 0.2 % (0.0-1.0); EOS % 0.3 % (0.0-3.0); HEMATOCRIT 41.6 % (36.0-47.0); HEMOGLOBIN 12.2 g/dl (12.0-15.5); LYMPH # 1.5 10^3/uL (1.5-5.0); LYMPH % 16.9 % (24.0-44.0); MEAN CORPUSCULAR HGB CONC 29.3 g/dl (32.0-36.5); MONO # 0.4 10^3/uL (0.0-0.8); MONO % 4.7 % (0.0-5.0); NEUTROPHILS # 6.6 10^3/uL (1.5-8.5); NEUTROPHILS % 77.1 % (36.0-66.0); PLATELET COUNT, AUTOMATED 197 10^3/uL (150-450); WHITE BLOOD COUNT 8.6 10^3/uL (4.0-10.0)
[2019-11-14 20:06] LABS: RHEUMATOID FACTOR QUANT < 10.0 IU/ML (<15.0); THYROID STIMULATING HORMONE 0.527 uIU/ML (0.358-3.740)
[2019-11-14 20:09] LABS: VITAMIN B12 LEVEL 1183 PG/ML
[2019-11-14 20:10] LABS: FOLATE 8.8 NG/ML
[2019-11-14 20:11] LABS: HEMOGLOBIN A1c 8.8 %
[2019-11-14 20:49] LABS: ERYTHROCYTE SEDIMENTATION RATE 21 mm/hr (0-30)
== END ==
LOC: M LABDRWAD 16:07
PROVIDERS: ATTEND Physician Assistant Medical
DX: R41.3 Other amnesia (principal); R51 Headache; G62.9 Polyneuropathy, unspecified; Z79.899 Other long term (current) drug therapy

== ENCOUNTER → 2019-11-14 | Outpatient (CLI) | payer MEDICARE, MEDICAID ==
[~2019-11-14] MED LIST changes: +AMMO12CR7 TOP; +BISO5TAB14 PO; +DOXY100T PO; +METF500T13 PO
--- NOTE | 2019-11-14 17:58 | REP ---
Chest x-ray: Two views. History: Chronic respiratory failure. Comparison chest x-ray October 29, 2019. Findings: The lungs are hyperinflated and there is mild bibasilar linear fibrosis. No infiltrate is seen. Pleural angles are sharp. Heart is not enlarged. Emphysematous changes are noted in the upper lobes. Surgical fusion hardware is seen in the cervical spine bilaterally as before. No acute bony abnormality is appreciated. Impression: Hyperinflation with emphysematous changes and bibasilar fibrosis. Otherwise no acute disease. Status post cervical spine fusion. Electronically Signed by Byron Cunningham MD 11/14/2019 06:53 P
== END ==
LOC: M ADAMS 16:04
PROVIDERS: ATTEND Physician Assistant Medical
DX: R91.8 Other nonspecific abnormal finding of lung field (principal); I50.32 Chronic diastolic (congestive) heart failure; R73.09 Other abnormal glucose; J96.11 Chronic respiratory failure with hypoxia; R41.3 Other amnesia; R51 Headache; G62.9 Polyneuropathy, unspecified; Z79.899 Other long term (current) drug therapy
CPT/HCPCS: 36415; 71046; 80053; 82607; 82746; 83036; 83880; 84443; 85025; 85652; 86038; 86431; 86780; 99495; G0463

== ENCOUNTER → 2019-11-14 | Outpatient (REF) | payer MEDICARE, MEDICAID ==
[~2019-11-14] MED LIST changes: -AMMO12CR7 TOP; -BISO5TAB14 PO; -DOXY100T PO; -METF500T13 PO
[2019-11-14 20:00] LABS: ALBUMIN 3.2 GM/DL (3.2-5.2); ALT/SGPT 33 U/L (12-78); BILIRUBIN,TOTAL 0.3 MG/DL (0.2-1.0); BLOOD UREA NITROGEN 17 MG/DL (7-18); CALCIUM LEVEL 8.5 MG/DL (8.5-10.1); CARBON DIOXIDE LEVEL 41 MEQ/L (21-32); CHLORIDE LEVEL 95 MEQ/L (98-107); CREATININE FOR GFR 0.79 MG/DL (0.55-1.30); GLOMERULAR FILTRATION RATE > 60.0 (>51); GLUCOSE, FASTING 233 MG/DL (70-100); SODIUM LEVEL 141 MEQ/L (136-145); TOTAL PROTEIN 6.4 GM/DL (6.4-8.2)
[2019-11-14 20:10] LABS: HEMOGLOBIN A1c 8.7 %
== END ==
LOC: M SFHCADAM 15:40
PROVIDERS: ATTEND Physician Assistant Medical
DX: I50.32 Chronic diastolic (congestive) heart failure (principal); R73.09 Other abnormal glucose

== ENCOUNTER → 2019-12-06 | Outpatient (CLI) | payer MEDICARE, MEDICAID ==
[~2019-12-06] MED LIST changes: +AMMO12CR7 TOP; +BISO5TAB14 PO; +DOXY100T PO; +METF500T13 PO
--- NOTE | 2019-12-06 15:28 | REP ---
Clinical: Heart failure and hypoxia. Technique: PA and lateral. Comparison: 11/14/2019 Findings: Mediastinum and cardiac silhouette are stable within normal limits. Diffuse chronic emphysematous changes and fibrosis remain stable. No effusion. Skeletal structures are intact. There is a subtle new area of density in the left apex measuring roughly 5.6 cm and requires chest CT correlation. Impression: 1. Very subtle ovoid up opacity in the left apex is. Differential diagnosis includes forming pleural plaque as well as mass lesion. Chest CT with contrast may be warranted for further investigation. Electronically Signed by Marcus Dacosta MD 12/06/2019 03:19 P
== END ==
LOC: M ADAMS 15:01
PROVIDERS: ATTEND Physician Assistant Medical
DX: J96.11 Chronic respiratory failure with hypoxia (principal)

== ENCOUNTER 2019-12-09 14:17 | Inpatient (IN) | payer MEDICARE, MEDICAID ==
[~2019-12-09] VITALS: Ht 167.6 cm; Wt 98.0 kg
[~2019-12-09 14:17] MED LIST changes: -AMMO12CR7 TOP; -BISO5TAB14 PO; -DOXY100T PO; -METF500T13 PO
[2019-12-09] MEDS ORDERED: FUROSEMIDE 100 MG/10 ML VIAL (J1940) IV ONE (15:15)
--- NOTE | 2019-12-09 15:18 | REP ---
Clinical: Shortness of breath. Comparison: 12/06/2019. Findings: Mediastinum and cardiac silhouette are stable. Lung lee demonstrate chronic changes. Subtle basilar atelectasis cannot be excluded. No obvious effusion. No pneumothorax. Skeletal structures intact. Impression: Chronic changes. Cannot exclude subtle basilar atelectasis. Electronically Signed by Marcus Dacosta MD 12/09/2019 03:10 P
[2019-12-09 15:28] LABS: BASO % 0.4 % (0.0-1.0); EOS # 0.5 10^3/uL (0.0-0.5); EOS % 5.9 % (0.0-3.0); HEMATOCRIT 42.1 % (36.0-47.0); HEMOGLOBIN 12.7 g/dl (12.0-15.5); LYMPH # 0.8 10^3/uL (1.5-5.0); MEAN CORPUSCULAR HGB CONC 30.2 g/dl (32.0-36.5); MEAN CORPUSCULAR VOLUME 96.1 fl (80.0-96.0); MONO # 0.3 10^3/uL (0.0-0.8); MONO % 3.1 % (0.0-5.0); NEUTROPHILS # 7.2 10^3/uL (1.5-8.5); NEUTROPHILS % 79.8 % (36.0-66.0); PLATELET COUNT, AUTOMATED 241 10^3/uL (150-450); RED BLOOD COUNT 4.38 10^6/uL (4.00-5.40)
[2019-12-09] MEDS ORDERED: methylPREDNISolone INJ 125 MG/2 ML VIAL (J2930) IV ONE (15:45)
[2019-12-09 15:59] LABS: BLOOD UREA NITROGEN 17 MG/DL (7-18); CALCIUM LEVEL 8.4 MG/DL (8.5-10.1); CHLORIDE LEVEL 90 MEQ/L (98-107); CREATININE FOR GFR 0.76 MG/DL (0.55-1.30); GLOMERULAR FILTRATION RATE > 60.0 (>51); GLUCOSE, FASTING 157 MG/DL (70-100); POTASSIUM SERUM 3.3 MEQ/L (3.5-5.1); SODIUM LEVEL 141 MEQ/L (136-145)
[2019-12-09 16:00] LABS: CARBON DIOXIDE LEVEL 50 MEQ/L (21-32)
[2019-12-09 16:10] LABS: ALBUMIN 2.4 GM/DL (3.2-5.2); ALT/SGPT 26 U/L (12-78); BILIRUBIN,DIRECT 0.2 MG/DL (0.0-0.2); BILIRUBIN,TOTAL 0.4 MG/DL (0.2-1.0); CK-MB VALUE MASS < 1.0 NG/ML (<3.6); CPK CREATINE PHOSPHOKINASE 36 U/L (26-192); MAGNESIUM LEVEL 0.9 MG/DL (1.8-2.4); MB/CK RELATIVE INDEX 2.78 (< OR =4); NT-PRO BNP 63 PG/ML (<125); TOTAL PROTEIN 5.9 GM/DL (6.4-8.2); TROPONIN I < 0.02 NG/ML (< 0.10)
[2019-12-09] MEDS ORDERED: MAGNESIUM SULFATE 1 GM/100 ML D5W BAG (10MG/ML) (J3475) As Ordered ONE (16:11)
[2019-12-09] MEDS ORDERED: MAG SULF 1GM/100ML (MAG RUN) 1 GM in IV 1 EA IV ONE ×2 (16:15→17:15)
[2019-12-09] MEDS ORDERED: MAGNESIUM OXIDE 400 MG TAB (MAG-OX) PO ONE (16:45)
[2019-12-09] MEDS ORDERED: POTASSIUM CHLORIDE 10 MEQ SR TABLET PO ONE ×2 (16:45→20:30)
[2019-12-09] MEDS ORDERED: ACETAMINOPHEN TAB 650MG DOSE (2X325MG) PO PRN (17:00)
[2019-12-09] MEDS ORDERED: LEVALBUTEROL 1.25 MG/0.5 ML CONCENTRATE NEB INH PRN (17:00)
[2019-12-09 17:09] LABS: INR 0.95; PROTHROMBIN TIME 12.4 SECONDS (11.8-14.0)
[2019-12-09 17:10] LABS: PARTIAL THROMBOPLASTIN TIME 28.5 SECONDS (25.0-38.4)
[2019-12-09 17:17] LABS: THYROID STIMULATING HORMONE 0.643 uIU/ML (0.358-3.740)
[2019-12-09] MEDS ORDERED: DOXY100T PO (17:19)
[2019-12-09] MEDS ORDERED: BISO5TAB14 PO (17:19)
[2019-12-09] MEDS ORDERED: AMMO12CR7 TOP (17:19)
[2019-12-09] MEDS ORDERED: PRED10TA2 PO (17:19)
[2019-12-09] MEDS ORDERED: METF500T13 PO (17:19)
[2019-12-09] MEDS ORDERED: ISOVUE-370 76% 100ML VIAL (Q9967) As Ordered ONE (17:20)
[2019-12-09] MEDS ORDERED: methylPREDNISolone INJ 125 MG/2 ML VIAL (J2930) IV SCH (17:30)
[2019-12-09 17:39] LABS: ABG BASE EXCESS 17.8 (-2.0-2.0); ABG HCO3 47.2 MEQ/L (22.0-26.0); ABG O2 SATURATION 93.5 % (95.0-99.0); ABG PARTIAL PRESSURE O2 68.5 mmHg (75.0-100.0); ABG STANDARD HCO3 41.9 MEQ/L (22.0-26.0); ABG TOTAL CO2 49.6 MEQ/L (22.0-29.0); ABG pH (ARTERIAL) 7.389 UNITS (7.350-7.450)
[2019-12-09 17:42] LABS: ABG PARTIAL PRESSURE CO2 79.9 mmHg (35.0-45.0)
--- NOTE | 2019-12-09 18:42 | HPEPDOC ---
General Date of Admission Dec 09, 2019 at 17:20 Date of Service: Dec 09, 2019 Chief Complaint The patient is a 59-year-old female admitted with a reason for visit of Copd Exacerbation. History of Present Illness HISTORY OF PRESENT ILLNESS: This is a 59 year old female with COPD and chronic hypoxemic respiratory failure on 3L nasal canula at baseline, chronic neck pain on chronic opioid therapy, obesity , chronical on steroids with steroid induced diabetes, former smoker who presented to the ED for worsening dyspnea that started a few weeks ago but became increasingly worse in the last few days to the point she was unable to sleep last night due to the shortness of breath and productive cough. She endorses nausea and a decrease in her appetite recently but states she has not been ill with any rhinorrhea, sore throat or other URI symptoms. Patient also stated today she felt palpitations. On route to the ED in the ambulance she was given 10 of dexamethasone and dinuba and reports an improvement in her symptoms with those treatments. In the ED the patient's pusle ox was 77%, RR was 20, pulse was 135 and her BP was 114/74. Initial labs showed ABG with pH of 7.381, pCO2 of 84.3 and HCO3 of 50 and magnesium of 0.9. She was put on BiPAP and given solumedrol IV, and magnesium. She will be admitted for COPD exacerbation treatment with workup to rule out a possible pulmonary embolism due to the sinus tachycardia and acute increase in dyspnea. Medical History COPD CHRONIC OBSTRUCTIVE BRONCHITIS, EMPHYSEMA, DR TREJO CHRONIC O2 3 LPM CHRONIC NECK PAIN - PAIN CLINIC DEPRESSION HYPERLIPIDEMIA HYPERTENSION, 07/05 EKG NSR GERD STRESS URINARY INCONTINENCE ECHO 08/201919 GRADE 1 LEFT VENTRICULAR DIASTOLIC DYSFUNCTION PINEAL CYST- NEURO, MRI 05/08 WITHOUT CHANGE. 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 1997 LEFT TOTAL KNEE REPLACEMENT- [facility] 07/05 TUBAL LIGATION COLONOSCOPY 08/05 POOR PREP, REPEAT 10/05, SUBOPTIMAL PREP HOME MEDICATIONS: Please see below. ALLERGIES: Please see below SOCIAL HISTORY: Patient lives with her daughter and she is former smoker who q uit a few years ago. She denies alcohol and drug use. She is FULL CODE status and her daughter Marie is her healthcare proxy. FAMILY HISTORY: MOTHER: ALIVE, OTHER MALIGNANT NEOPLASM OF UNSPECIFIED SITE 2 BROTHER(S) , 1 SISTER(S) - HEALTHY. 2 SON(S) , 1 DAUGHTER(S) . FATHER: CIRROHSIS OF THE LIVER , MOTHER: COLON CA, HAS A COLOSTOMY BAG, BROTHER: HTN, SON: AT 23 REVIEW OF SYSTEMS: Constitutional: Reports chills Denies: Fever Eyes: Denies: Vision Changes ENT: Denies: Head Aches Pulmonary: Reports: Dyspnea Cardiovascular: Reports: Palpitations Denies: Chest pain Gastrointestinal: Reports: Nausea Denies: Vomiting Genitourinary: Denies: Dysuria Musculoskeletal: Denies: Arm Pain, Leg Pain Neurological: Reports: Weakness in LE bilaterally Denies: numbness, tingling Psych: Reports: Mood Normal PHYSICAL EXAMINATION: VITAL SIGNS: Please See Below GENERAL: Pleasant 59 year old female sitting up in bed, awake and alert with BiPAP on. She is in no acute respiratory distress. HEENT: Atraumatic, normocephalic, moist mucous membrane. CARDIOVASCULAR: Difficult to assess due to lung sounds CHEST: bilateral rhonchi and wheezes throughout. ABDOMINAL: Bowel sounds present in all 4 quadrants, abdomen soft and nontender. EXTREMITIES: No lower leg edema, pedal pulses 3+ bilaterally. NEUROLOGICAL: AOx3, spontaneously moves all 4 extremities, no gross focal deficits. PSYCHOLOGICAL: Appropriate. LABORATORY DATA: Please see below. MICROBIOLOGY: Please see below. IMAGING: Chest XRay impression: compared to xray from 12/06/2019- Chronic changes. Cannot exclude subtle basilar atelectasis ASSESSMENT & PLAN: Patient is a 59 year old female with with COPD and chronic hypoxic respiratory failure, chronic neck pain on pain meds who presented with worsening shortness of breath and productive cough. ABG in ED showed a pH of 7.381, pCO2 of 84.3 and HCO3 of 50. She will be admitted for COPD exacerbation and will rule out a possible pulmonary embolism due to the sinus tachycardia and acute increase in dyspnea. PROBLEMS: COPD exacerbation with acute on chronic hypercarbic hypoxemic respiratory failure: -worsening dyspnea, productive cough and ABG with a pH of 7.381, pCO2 of 84.3 and HCO3 of 50. -possibly 2/2 to URI, respiratory panel and sputum culture pending. -Fluticasone/Salmel 2 puffs BID -Xenopex 0.63 mg QID -Xenopex 1.25 Q2H PRN for SOB and wheezing -solumedrol 60 mg IV Q8H -will discontinue BiPAP due to repeat ABG showing improvement with a pCO2 of 79.9, continue with supplemental O2 via 3L nasal canula. -echocardiogram pending. Possible pulmonary embolism -presented with dyspnea and tachycardia -CT angiogram pending Hypomagnesium -possibly 2/2 diuretics -magnesium IV and PO -repeat magnesium levels tonight Diastolic Heart Failure -continue home medication: Lasix 40 mg PO daily. Diabetes: -insulin sliding scale -hold home medications -concentrated carb diet Depression -continue home medications: paroxetine 40 mg PO daily and olanzapine 5 mg PO daily. Chronic neck pain with h/o neck surgery -continue home medications: gabapentin 600 mg TID and cymbalta 60 mg PO daily. Hypothyroid -continue home medication: synthroid 25 mg PO daily. Hyperlipidemia -continue home medication: atorvastatin 20 mg PO daily. GERD -continue home medication: omeprazole 40 mg PO daily. Obesity -complicating care, aware and not able to address it at this time. will defer to outpatient management with PCP. DVT PROPHYLAXIS: Lovenox 40 mg PO daily, TEDS and sequentials DISPOSITION: Pending clinical improvement of COPD. Home Medications Scheduled Atorvastatin Calcium (Atorvastatin Calcium) 20 Mg Tab, 20 MG PO QHS, (Reported) Bisoprolol Fumarate (Bisoprolol Fumarate) 5 Mg Tablet, 2.5 MG PO DAILY, (Reported) PATIENT HAS NOT STARTED YET Dexlansoprazole (Dexilant) 60 Mg Cap, 60 MG PO DAILY, (Reported) Doxycycline Hyclate (Doxycycline Hyclate) 100 Mg Tablet, 100 MG PO BID, (Reported) FILLED 12/06/19 FOR 10 DAYS Duloxetine Hcl (Duloxetine HCl) 60 Mg Capsule.dr, 60 MG PO DAILY, (Reported) Furosemide (Furosemide) 40 Mg Tablet, 40 MG PO DAILY, (Reported) Gabapentin (Gabapentin) 600 Mg Tab, 600 MG PO TID, (Reported) Levothyroxine Sodium (Levothyroxine Sodium) 25 Mcg Tablet, 25 MCG PO DAILY, (Reported) Metformin HCl (Metformin HCl) 500 Mg Tablet, 1,000 MG PO BID, (Reported) Olanzapine (Olanzapine) 5 Mg Tablet, 5 MG PO DAILY, (Reported) Paroxetine HCl (Paroxetine HCl) 40 Mg Tab, 40 MG PO QHS, (Reported) Plecanatide (Trulance) 3 Mg Tablet, 3 MG PO QHS, (Reported) Prednisone (Prednisone) 10 Mg Tablet, 10 MG PO DAILY, (Reported) Salmeterol/Fluticasone (Advair 500-50 Diskus) 1 Each Blst.w.dev, 1 PUFF INH BID, (Reported) Umeclidinium [place] (Incruse Ellipta) 62.5 Mcg/Inh Inh, 1 PUFF INH DAILY, (Reported) TAKES AT NOON Scheduled PRN Albuterol Sulf (Albuterol Sulfate) 2.5 Mg/3 Ml Vial.neb, 2.5 MG INH Q4H PRN for SHORTNESS OF BREATH, (Reported) Albuterol Sulfate (Ventolin Hfa) 18 Gm Hfa.aer.ad, 2 PUFF INH Q4H PRN for SHORTNESS OF BREATH, (Reported) Ammonium Lactate (Ammonium Lactate) 12% Cream..g., 1 DOSE TOP BID PRN for DRY SK IN, (Reported) APPLY TO FEET Oxycodone HCl (Oxycodone HCl) 5 Mg Tab, 5 MG PO BID PRN for PAIN, (Reported) Allergies Coded Allergies: No Known Allergies (Verified Allergy, Unknown, 12/09/19) A-FIB/CHADSVASC A-FIB History Current/History of A-Fib/PAF?: No Current PO Anticoag Therapy: Yes Vital Signs Vital Signs Date Time Temp Pulse Resp B/P (MAP) Pulse Ox O2 Delivery O2 Flow Rate FiO2 12/09/19 16:07 35 12/09/19 14:32 Nasal Cannula 4.0 12/09/19 14:28 98.6 135 22 114/74 (87) 12/09/19 14:19 77 Laboratory Data Labs 24H Laboratory Tests 2 12/09/19 15:07: Anion Gap 1L, Glomerular Filtration Rate > 60.0, Calcium Level 8.4L 12/09/19 15:12: Immature Granulocyte % (Auto) 1.8, Neutrophils (%) (Auto) 79.8H, Lymphocytes (%) (Auto) 9.0L, Monocytes (%) (Auto) 3.1, Eosinophils (%) (Auto) 5.9H, Basophils (%) (Auto) 0.4, Neutrophils # (Auto) 7.2, Lymphocytes # (Auto) 0.8L, Monocytes # (Auto) 0.3, Eosinophils # (Auto) 0.5, Basophils # (Auto) 0.0, Nucleated Red Blood Cells % (auto) 0.0, Magnesium Level 0.9*L, Total Bilirubin 0.4, Direct Bilirubin 0.2, Aspartate Amino Transf (AST/SGOT) 20, Alanine Aminotransferase (ALT/SGPT) 26, Alkaline Phosphatase 82, Total Creatine Kinase 36, Creatine Kinase MB < 1.0, Creatine Kinase MB Relative Index 2.78, Troponin I < 0.02, ZA-Vsm-J-Type Natriuretic Peptide 63, Total Protein 5.9L, Albumin 2.4L, Albumin/Globulin Ratio 0.69L, Thyroid Stimulating Hormone (TSH) 0.643 12/09/19 15:46: POC pH (Misc Panel) 7.381, POC Base Excess (Misc Panel) 25.0H, POC Saturated Percent O2 (Misc) 83L, POC pO2 (Misc Panel) 52.0L, POC pCO2 (Misc Panel) 84.3*H, POC HCO3 (Misc Panel) 50.0H, POC Total CO2 (Misc Panel) > 50.0H 12/09/19 16:44: Prothrombin Time 12.4, Prothromb Time International Ratio 0.95, Activated Partial Thromboplast Time 28.5 CBC/BMP Laboratory Tests 12/09/19 15:07 12/09/19 15:12 Plan / VTE VTE Prophylaxis Ordered?: Yes MARGARITA TALLEY S-3 Dec 09, 2019 17:50
--- NOTE | 2019-12-09 18:56 | REPVR ---
PROCEDURE INFORMATION: Exam: CT Angiography Chest With Contrast Exam date and time: 12/09/2019 5:10 PM Age: 59 years old Clinical indication: Dyspnea; Additional info: Dyspnea, R/O pulm embolus? TECHNIQUE: Imaging protocol: Computed tomographic angiography of the chest with intravenous contrast. 3D rendering: MIP and/or 3D reconstructed images were created by the technologist. Radiation optimization: All CT scans at this facility use at least one of these dose optimization techniques: automated exposure control; mA and/or kV adjustment per patient size (includes targeted exams where dose is matched to clinical indication); or iterative reconstruction. Contrast material: ISOVUE 370; Contrast volume: 75 ml; Contrast route: IV; COMPARISON: CT ANGIO CHEST 09/20/2019 5:31 PM FINDINGS: Pulmonary arteries: Peripheral pulmonary artery evaluation limited by cardiac and respiratory motion artifact. Central pulmonary arteries show no intraluminal defect suggestive of clot. Aorta: Mild atherosclerotic change is present in the normal caliber aorta. No evidence of dissection or penetrating ulcer. Lungs: Pulmonary vascular/interstitial pattern does not suggest active pulmonary edema. Severe apical predominant centrilobular pattern of emphysema is present with apical scarring. No identifiable lung mass or airspace infiltrate. Pleural space: No pleural effusion or pneumothorax. Heart: No overt cardiac enlargement or abnormal volume of pericardial fluid. Liver: Liver is decreased in density, consistent with fatty infiltration. Lymph nodes: No enlarged mediastinal lymph nodes. Bones/joints: Bony structures show no acute fracture or destructive process. IMPRESSION: 1. No acute, central pulmonary arterial filling defects suggestive of pulmonary embolus. Peripheral vessel evaluation is somewhat limited by cardiac and respiratory motion artifact. 2. Severe centrilobular emphysema without evidence of an acute complication Electronically signed by: Ronald Perez On 12/09/2019 18:56:12 PM
--- NOTE | 2019-12-09 19:47 | ECGEPIP ---
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
[2019-12-09 19:48] LABS: BLOOD UREA NITROGEN 15 MG/DL (7-18); CALCIUM LEVEL 8.3 MG/DL (8.5-10.1); CARBON DIOXIDE LEVEL 46 MEQ/L (21-32); CHLORIDE LEVEL 84 MEQ/L (98-107); CREATININE FOR GFR 0.74 MG/DL (0.55-1.30); GLOMERULAR FILTRATION RATE > 60.0 (>51); GLUCOSE, FASTING 178 MG/DL (70-100); MAGNESIUM LEVEL 1.6 MG/DL (1.8-2.4); POTASSIUM SERUM 2.9 MEQ/L (3.5-5.1); SODIUM LEVEL 134 MEQ/L (136-145)
[2019-12-09] MEDS: GABAPENTIN 300 MG CAP PO SCH ×2 (19:48→20:25)
[2019-12-09] MEDS: LEVALBUTEROL 1.25 MG/0.5 ML CONCENTRATE NEB INH SCH (20:00)
[2019-12-09 20:15] VITALS: BP 136/78
[2019-12-09] MEDS: PARoxetine 20 MG TAB PO SCH (20:30)
[2019-12-09] MEDS: ATORVASTATIN 20 MG TAB PO SCH (20:30)
[2019-12-09 21:00] VITALS: O2SAT 94
[2019-12-09] MEDS: ADVAIR HFA 230/21MCG INHALER INH SCH (21:09)
[2019-12-09] MEDS: oxyCODONE 5MG TAB PO PRN (21:32)
[2019-12-09 22:00] VITALS: O2SAT 91
[2019-12-09 22:31] LABS: CPK CREATINE PHOSPHOKINASE 42 U/L (26-192); MB/CK RELATIVE INDEX 2.38 (< OR =4); TROPONIN I < 0.02 NG/ML (< 0.10)
[2019-12-09 23:00] VITALS: O2SAT 93
[2019-12-09] MEDS: methylPREDNISolone INJ 125 MG/2 ML VIAL (J2930) IV SCH (23:45)
[2019-12-10] VITALS (24 sets, daily range): BP systolic 133–172; BP diastolic 74–86; O2SAT 42–99
[2019-12-10] MEDS: LEVOTHYROXINE 25MCG TABLET (0.025MG) PO SCH (05:30)
[2019-12-10 05:36] LABS: HEMATOCRIT 39.3 % (36.0-47.0); MEAN CORPUSCULAR HEMOGLOBIN 28.8 pg (27.0-33.0); MEAN CORPUSCULAR HGB CONC 30.5 g/dl (32.0-36.5); MEAN CORPUSCULAR VOLUME 94.5 fl (80.0-96.0); PLATELET COUNT, AUTOMATED 245 10^3/uL (150-450); RED BLOOD COUNT 4.16 10^6/uL (4.00-5.40); WHITE BLOOD COUNT 4.6 10^3/uL (4.0-10.0)
[2019-12-10 06:09] LABS: BLOOD UREA NITROGEN 19 MG/DL (7-18); CALCIUM LEVEL 8.2 MG/DL (8.5-10.1); CARBON DIOXIDE LEVEL 48 MEQ/L (21-32); CHLORIDE LEVEL 90 MEQ/L (98-107); CK-MB VALUE MASS < 1.0 NG/ML (<3.6); CPK CREATINE PHOSPHOKINASE 108 U/L (26-192); CREATININE FOR GFR 0.83 MG/DL (0.55-1.30); GLOMERULAR FILTRATION RATE > 60.0 (>51); GLUCOSE, FASTING 226 MG/DL (70-100); MAGNESIUM LEVEL 2.1 MG/DL (1.8-2.4); MB/CK RELATIVE INDEX 0.93 (< OR =4); POTASSIUM SERUM 4.6 MEQ/L (3.5-5.1); SODIUM LEVEL 138 MEQ/L (136-145); TROPONIN I < 0.02 NG/ML (< 0.10)
[2019-12-10] MEDS: LEVALBUTEROL 1.25 MG/0.5 ML CONCENTRATE NEB INH SCH ×4 (08:00→20:00)
[2019-12-10] MEDS: ADVAIR HFA 230/21MCG INHALER INH SCH ×2 (08:33→20:39)
[2019-12-10] MEDS: methylPREDNISolone INJ 125 MG/2 ML VIAL (J2930) IV SCH ×2 (09:46→16:34)
[2019-12-10] MEDS: GABAPENTIN 300 MG CAP PO SCH ×3 (09:46→20:27)
[2019-12-10] MEDS: DULoxetine 30 MG CAP (CYMBALTA) PO SCH (09:46)
[2019-12-10] MEDS: FUROSEMIDE 40 MG TAB PO SCH (09:46)
[2019-12-10] MEDS: OMEPRAZOLE 20 MG CAP PO SCH (09:47)
[2019-12-10] MEDS: ENOXAPARIN 40 MG/0.4 ML SYRINGE (J1650) SC SCH (09:47)
[2019-12-10] MEDS: oxyCODONE 5MG TAB PO PRN (09:48)
--- NOTE | 2019-12-10 09:53 | IPNPDOC ---
Subjective Date Seen The patient was seen on 12/10/19. Subjective Chief Complaint/HPI Pt this morning without new concerns. She is feeling a little better than she did yest. She came into the hospital because of worsening SOB and Sats in the low 70s. General: Reports: Fatigue Constitutional: Denies: Chills, Fever Pulmonary: Reports: Dyspnea, Cough Gastrointestinal: Denies: Nausea, Vomiting, Diarrhea Neurological: Reports: Weakness Psych: Reports: Mood Normal Objective Physical Examination General Exam: Positive: Alert, Mild Distress (+ dyspneic) Neck Exam: Positive: Supple; Negative: JVD, Lymphadenopathy Chest Exam: Positive: Wheezing, Diminished Heart Exam: Positive: Rate Normal, Normal S1, Normal S2 Abdomen Exam: Positive: Normal bowel sounds, Soft; Negative: Tenderness Extremity Exam: Negative: Edema Neuro Exam: Positive: Normal Speech Psych Exam: Positive: Mental status NL, Mood NL Assessment /Plan Problems (1) Acute and chronic respiratory failure with hypercapnia Status: Acute Response to Treatment: Stable Discussed With: Patient Problem Specific Plan: Monitor Clinically, Repeat Labs Problem Text: Pt this morning reports slight improvement. On 5 L, at home usually on 3, recently increased to 4L, SM 60 mg q8h, nebs. Will need PT prior to DC. (2) COPD exacerbation Status: Acute Problem Text: See above. (3) Type 2 diabetes mellitus Status: Chronic Problem Text: Will resume Metformin. (4) Physical deconditioning Status: Chronic Problem Text: Needs PT. (5) Hypomagnesemia Status: Acute Problem Text: replaced on admission, now 2.1, monitor. Plan/VTE VTE Prophylaxis Ordered?: Yes VS, I&O, 24H, Fishbone Vital Signs/I&O Vital Signs Date Time Temp Pulse Resp B/P (MAP) Pulse Ox O2 Delivery O2 Flow Rate FiO2 12/10/19 09:48 20 12/10/19 08:00 96.8 101 142/84 (103) 91 Nasal Cannula 4.0 12/09/19 16:07 35 I&O- Last 24 Hours up to 6 AM 12/10/19 06:00 Intake Total 660 ml Output Total 800 ml Balance -140 ml Laboratory Data 24H LABS Laboratory Tests 2 12/09/19 15:07: Anion Gap 1L, Glomerular Filtration Rate > 60.0, Calcium Level 8.4L 12/09/19 15:12: Immature Granulocyte % (Auto) 1.8, Neutrophils (%) (Auto) 79.8H, Lymphocytes (%) (Auto) 9.0L, Monocytes (%) (Auto) 3.1, Eosinophils (%) (Auto) 5.9H, Basophils (%) (Auto) 0.4, Neutrophils # (Auto) 7.2, Lymphocytes # (Auto) 0.8L, Monocytes # (Auto) 0.3, Eosinophils # (Auto) 0.5, Basophils # (Auto) 0.0, Nucleated Red Blood Cells % (auto) 0.0, Magnesium Level 0.9*L, Total Bilirubin 0.4, Direct Bilirubin 0.2, Aspartate Amino Transf (AST/SGOT) 20, Alanine Aminotransferase (ALT/SGPT) 26, Alkaline Phosphatase 82, Total Creatine Kinase 36, Creatine Kinase MB < 1.0, Creatine Kinase MB Relative Index 2.78, Troponin I < 0.02, QC-Hkd-V-Type Natriuretic Peptide 63, Total Protein 5.9L, Albumin 2.4L, Albumin/Globulin Ratio 0.69L, Thyroid Stimulating Hormone (TSH) 0.643 12/09/19 15:46: POC pH (Misc Panel) 7.381, POC Base Excess (Misc Panel) 25.0H, POC Saturated Percent O2 (Misc) 83L, POC pO2 (Misc Panel) 52.0L, POC pCO2 (Misc Panel) 84.3*H, POC HCO3 (Misc Panel) 50.0H, POC Total CO2 (Misc Panel) > 50.0H 12/09/19 16:44: Prothrombin Time 12.4, Prothromb Time International Ratio 0.95, Activated Partial Thromboplast Time 28.5 12/09/19 17:33: Blood Gas Bicarbonate Standard 41.9H, Arterial Blood pH 7.389, Arterial Blood Partial Pressure CO2 79.9*H, Arterial Blood Partial Pressure O2 68.5L, Arterial Blood Total CO2 49.6H, Arterial Blood HCO3 47.2H, Arterial Blood Base Excess 17.8H, Arterial Blood Oxygen Saturation 93.5L 12/09/19 19:00: Anion Gap 4L, Glomerular Filtration Rate > 60.0, Calcium Level 8.3L, Magnesium Level 1.6L 12/09/19 22:01: Magnesium Level 1.9, Total Creatine Kinase 42, Creatine Kinase MB 1.0, Creatine Kinase MB Relative Index 2.38, Troponin I < 0.02 12/10/19 05:21: Anion Gap 0L, Glomerular Filtration Rate > 60.0, Calcium Level 8.2L, Magnesium Level 2.1, Total Creatine Kinase 108#, Creatine Kinase MB < 1.0, Creatine Kinase MB Relative Index 0.93, Troponin I < 0.02, Nucleated Red Blood Cells % (auto) 0.0 CBC/BMP Laboratory Tests 12/09/19 15:07 12/09/19 15:12 12/09/19 19:00 12/09/19 22:01 12/10/19 05:21 Microbiology Microbiology 12/09/19 Respiratory Virus Panel (PCR) ([facility]) - Final, Complete DELANEY JEAN PA-C Dec 10, 2019 09:53
[2019-12-10] MEDS: OLANZapine 5 MG TAB PO SCH (10:27)
[2019-12-10] MEDS: metFORMIN (GLUCOPHAGE) 1000 MG TABLET PO SCH ×2 (10:27→17:09)
[2019-12-10] MEDS ORDERED: SLF 3 ML SYR IV PRN (16:45)
[2019-12-10] MEDS: PARoxetine 20 MG TAB PO SCH (20:26)
[2019-12-10] MEDS: ATORVASTATIN 20 MG TAB PO SCH (20:26)
[2019-12-10] MEDS: SLF 3 ML SYR IV SCH (20:27)
[2019-12-11] VITALS (26 sets, daily range): BP systolic 122–183; BP diastolic 64–92; O2SAT 81–98
[2019-12-11] MEDS: methylPREDNISolone INJ 125 MG/2 ML VIAL (J2930) IV SCH ×4 (00:09→23:43)
[2019-12-11] MEDS: LEVOTHYROXINE 25MCG TABLET (0.025MG) PO SCH (05:28)
[2019-12-11] MEDS: SLF 3 ML SYR IV SCH ×3 (05:28→20:40)
[2019-12-11] MEDS: LEVALBUTEROL 1.25 MG/0.5 ML CONCENTRATE NEB INH SCH ×4 (07:28→20:00)
[2019-12-11] MEDS: ADVAIR HFA 230/21MCG INHALER INH SCH ×2 (07:29→20:21)
[2019-12-11 07:33] LABS: HEMOGLOBIN 11.6 g/dl (12.0-15.5); MEAN CORPUSCULAR HEMOGLOBIN 29.1 pg (27.0-33.0); MEAN CORPUSCULAR HGB CONC 30.5 g/dl (32.0-36.5); MEAN CORPUSCULAR VOLUME 95.5 fl (80.0-96.0); PLATELET COUNT, AUTOMATED 276 10^3/uL (150-450); RED BLOOD COUNT 3.98 10^6/uL (4.00-5.40); WHITE BLOOD COUNT 13.3 10^3/uL (4.0-10.0)
[2019-12-11 07:50] LABS: BLOOD UREA NITROGEN 25 MG/DL (7-18); CALCIUM LEVEL 8.8 MG/DL (8.5-10.1); CARBON DIOXIDE LEVEL 41 MEQ/L (21-32); CHLORIDE LEVEL 92 MEQ/L (98-107); GLOMERULAR FILTRATION RATE > 60.0 (>51); GLUCOSE, FASTING 266 MG/DL (70-100); MAGNESIUM LEVEL 1.7 MG/DL (1.8-2.4); POTASSIUM SERUM 3.9 MEQ/L (3.5-5.1); SODIUM LEVEL 138 MEQ/L (136-145)
[2019-12-11] MEDS: ENOXAPARIN 40 MG/0.4 ML SYRINGE (J1650) SC SCH (08:44)
[2019-12-11] MEDS: OMEPRAZOLE 20 MG CAP PO SCH (08:44)
[2019-12-11] MEDS: DULoxetine 30 MG CAP (CYMBALTA) PO SCH (08:45)
[2019-12-11] MEDS: metFORMIN (GLUCOPHAGE) 1000 MG TABLET PO SCH ×2 (08:45→16:40)
[2019-12-11] MEDS: GABAPENTIN 300 MG CAP PO SCH ×3 (08:45→20:41)
[2019-12-11] MEDS: FUROSEMIDE 40 MG TAB PO SCH (08:45)
[2019-12-11] MEDS: OLANZapine 5 MG TAB PO SCH (08:46)
--- NOTE | 2019-12-11 08:46 | IPNPDOC ---
Subjective Date Seen The patient was seen on 12/11/19. Subjective Chief Complaint/HPI COPD exacerbation Events since last encounter Continues with dyspnea. states feels mildly better. tachycardiac with movement i nto the 160-170 range. HR comes down within 1 minutes of rest. Desaturation noted with exertion to 82%. patient is a mouth breather. Constitutional: Denies: Chills, Fever, Night Sweats ENT: Denies: Head Aches, Ear Pain, Dysphagia Skin: Denies: Rash, Lesions, Breakdown Pulmonary: Reports: Dyspnea, Cough Cardiovascular: Denies: Chest Pain, Palpitations Gastrointestinal: Denies: Nausea, Vomiting, Abdominal Pain, Diarrhea, Constipation Genitourinary: Denies: Dysuria, Frequency, Incontinence, Retention Psych: Reports: Mood Normal; Denies: Depression, Memory Issues Objective Physical Examination General Exam: Positive: Alert, Mild Distress (+ dyspneic) Neck Exam: Positive: Supple; Negative: JVD, Lymphadenopathy Chest Exam: Positive: Diminished Heart Exam: Positive: Rate Normal, Normal S1, Normal S2 Abdomen Exam: Positive: Normal bowel sounds, Soft; Negative: Tenderness Extremity Exam: Negative: Edema Neuro Exam: Positive: Normal Speech Psych Exam: Positive: Mental status NL, Mood NL Assessment /Plan Problems (1) Acute and chronic respiratory failure with hypercapnia Status: Acute Response to Treatment: Stable Discussed With: Patient Problem Specific Plan: Monitor Clinically, Repeat Labs Problem Text: 12/11/19:Will provide VM due to mouth breathing and desaturation. Respiratory therapy monitoring and will wean accordingly. Pt this morning reports slight improvement. On 5 L, at home usually on 3, recently increased to 4L, SM 60 mg q8h, nebs. Will need PT prior to DC. (2) COPD exacerbation Status: Acute Problem Text: See above. (3) Type 2 diabetes mellitus Status: Chronic Problem Text: Will resume Metformin. (4) Physical deconditioning Status: Chronic Problem Text: Needs PT. (5) Hypomagnesemia Status: Acute Problem Text: 12/11/19: mag ox 400 mg po daily added on. replaced on admission, now 2.1, monitor. Plan/VTE VTE Prophylaxis Ordered?: Yes VS, I&O, 24H, Fishbone Vital Signs/I&O Vital Signs Date Time Temp Pulse Resp B/P (MAP) Pulse Ox O2 Delivery O2 Flow Rate FiO2 12/11/19 05:00 92 Nasal Cannula 6.0 12/11/19 04:00 96.8 110 19 137/65 (89) 12/09/19 16:07 35 I&O- Last 24 Hours up to 6 AM 12/11/19 06:00 Intake Total 930 ml Output Total 400 ml Balance 530 ml Laboratory Data 24H LABS Laboratory Tests 2 12/11/19 07:14: Nucleated Red Blood Cells % (auto) 0.0, Anion Gap 5L, Glomerular Filtration Rate > 60.0, Calcium Level 8.8, Magnesium Level 1.7L CBC/BMP Laboratory Tests 12/11/19 07:14 Microbiology Microbiology 12/10/19 Gram Stain, Received Pending 12/10/19 Sputum Culture, Received Pending 12/09/19 Respiratory Virus Panel (PCR) ([facility]) - Final, Complete Fracnhesca Solorzano TUBING TESTER Dec 11, 2019 08:46
[2019-12-11] MEDS: oxyCODONE 5MG TAB PO PRN ×2 (08:57→20:42)
[2019-12-11] MEDS: MAGNESIUM OXIDE 400 MG TAB (MAG-OX) PO SCH (09:58)
[2019-12-11] MEDS: PARoxetine 20 MG TAB PO SCH (20:41)
[2019-12-11] MEDS: ATORVASTATIN 20 MG TAB PO SCH (20:42)
[2019-12-12] VITALS (25 sets, daily range): BP systolic 130–166; BP diastolic 68–94; O2SAT 89–97
[2019-12-12 05:44] LABS: HEMATOCRIT 38.3 % (36.0-47.0); HEMOGLOBIN 11.7 g/dl (12.0-15.5); MEAN CORPUSCULAR HEMOGLOBIN 29.1 pg (27.0-33.0); MEAN CORPUSCULAR HGB CONC 30.5 g/dl (32.0-36.5); MEAN CORPUSCULAR VOLUME 95.3 fl (80.0-96.0); PLATELET COUNT, AUTOMATED 272 10^3/uL (150-450); RED BLOOD COUNT 4.02 10^6/uL (4.00-5.40); WHITE BLOOD COUNT 13.1 10^3/uL (4.0-10.0)
[2019-12-12] MEDS: LEVOTHYROXINE 25MCG TABLET (0.025MG) PO SCH (06:11)
[2019-12-12] MEDS: SLF 3 ML SYR IV SCH ×3 (06:11→21:23)
[2019-12-12 06:20] LABS: BLOOD UREA NITROGEN 26 MG/DL (7-18); CALCIUM LEVEL 9.3 MG/DL (8.5-10.1); CARBON DIOXIDE LEVEL 45 MEQ/L (21-32); CHLORIDE LEVEL 93 MEQ/L (98-107); CREATININE FOR GFR 0.88 MG/DL (0.55-1.30); GLOMERULAR FILTRATION RATE > 60.0 (>51); GLUCOSE, FASTING 230 MG/DL (70-100); MAGNESIUM LEVEL 1.7 MG/DL (1.8-2.4); POTASSIUM SERUM 4.2 MEQ/L (3.5-5.1); SODIUM LEVEL 139 MEQ/L (136-145)
[2019-12-12] MEDS: LEVALBUTEROL 1.25 MG/0.5 ML CONCENTRATE NEB INH SCH ×4 (07:49→21:04)
[2019-12-12] MEDS: ADVAIR HFA 230/21MCG INHALER INH SCH ×2 (07:50→21:04)
[2019-12-12] MEDS: oxyCODONE 5MG TAB PO PRN (08:31)
--- NOTE | 2019-12-12 08:46 | IPNPDOC ---
Subjective Date Seen The patient was seen on 12/12/19. Subjective Chief Complaint/HPI COPD exacerbation Events since last encounter Improving. Weaned down to nasal cannula. Plans on PT eval and getting OOB today. Pulmonary: Reports: Dyspnea (chronic), Cough Cardiovascular: Denies: Chest Pain, Palpitations, Orthopnea, Paroxysmal Noc. Dyspnea, Lt Headedness Gastrointestinal: Denies: Nausea, Vomiting, Abdominal Pain, Diarrhea, Constipation Objective Physical Examination General Exam: Positive: Alert, Cooperative, No Acute Distress Neck Exam: Positive: Supple; Negative: JVD, Lymphadenopathy Chest Exam: Positive: Diminished Heart Exam: Positive: Rate Normal, Normal S1, Normal S2 Abdomen Exam: Positive: Normal bowel sounds, Soft; Negative: Tenderness Extremity Exam: Negative: Edema Neuro Exam: Positive: Normal Speech Psych Exam: Positive: Mental status NL, Mood NL Assessment /Plan Problems (1) Acute and chronic respiratory failure with hypercapnia Status: Acute Response to Treatment: Stable Discussed With: Patient Problem Specific Plan: Monitor Clinically, Repeat Labs Problem Text: 12/12/2019: weaning to NC. PT eval today. DC home in 1-2 days. 12/11/19:Will provide VM due to mouth breathing and desaturation. Respiratory therapy monitoring and will wean accordingly. Pt this morning reports slight improvement. On 5 L, at home usually on 3, recently increased to 4L, SM 60 mg q8h, nebs. Will need PT prior to DC. (2) COPD exacerbation Status: Acute Problem Text: See above. (3) Type 2 diabetes mellitus Status: Chronic Problem Text: Will resume Metformin. (4) Physical deconditioning Status: Chronic Problem Text: Needs PT. (5) Hypomagnesemia Status: Acute Problem Text: 12/11/19: mag ox 400 mg po daily added on. replaced on admission, now 2.1, monitor. Plan/VTE VTE Prophylaxis Ordered?: Yes VS, I&O, 24H, Fishbone Vital Signs/I&O Vital Signs Date Time Temp Pulse Resp B/P (MAP) Pulse Ox O2 Delivery O2 Flow Rate FiO2 12/12/19 08:31 20 12/12/19 08:00 97.6 112 147/87 (107) 93 Venturi Mask 15.0 50 I&O- Last 24 Hours up to 6 AM 12/12/19 06:00 Intake Total 1490 ml Output Total 1000 ml Balance 490 ml Laboratory Data 24H LABS Laboratory Tests 2 12/12/19 05:30: Nucleated Red Blood Cells % (auto) 0.2H, Anion Gap 1L, Glomerular Filtration Rate > 60.0, Calcium Level 9.3, Magnesium Level 1.7L CBC/BMP Laboratory Tests 12/12/19 05:30 Microbiology Microbiology 12/10/19 Gram Stain - Final, Resulted 12/10/19 Sputum Culture, Resulted Pending 12/09/19 Respiratory Virus Panel (PCR) ([facility]) - Final, Complete Franchesca Solorzano [employer]UDENT FIN[employer]CIAL [employer] MANAGER Dec 12, 2019 08:46
[2019-12-12] MEDS: OMEPRAZOLE 20 MG CAP PO SCH (08:58)
[2019-12-12] MEDS: ENOXAPARIN 40 MG/0.4 ML SYRINGE (J1650) SC SCH (08:58)
[2019-12-12] MEDS: metFORMIN (GLUCOPHAGE) 1000 MG TABLET PO SCH ×2 (08:59→18:02)
[2019-12-12] MEDS: predniSONE 20 MG TAB PO SCH ×2 (08:59→21:23)
[2019-12-12] MEDS: GABAPENTIN 300 MG CAP PO SCH ×3 (08:59→21:23)
[2019-12-12] MEDS: OLANZapine 5 MG TAB PO SCH (08:59)
[2019-12-12] MEDS: MAGNESIUM OXIDE 400 MG TAB (MAG-OX) PO SCH (08:59)
[2019-12-12] MEDS: DULoxetine 30 MG CAP (CYMBALTA) PO SCH (08:59)
[2019-12-12] MEDS: FUROSEMIDE 40 MG TAB PO SCH (09:00)
[2019-12-12] MEDS ORDERED: MOM 30ML SUSPENSION UDC PO PRN (12:00)
[2019-12-12] MEDS: ATORVASTATIN 20 MG TAB PO SCH (21:23)
[2019-12-12] MEDS: PARoxetine 20 MG TAB PO SCH (21:23)
[2019-12-13] VITALS (23 sets, daily range): BP systolic 139–159; BP diastolic 72–87; O2SAT 89–99
[2019-12-13] MEDS: SLF 3 ML SYR IV SCH ×3 (05:45→21:00)
[2019-12-13] MEDS: LEVOTHYROXINE 25MCG TABLET (0.025MG) PO SCH (05:45)
[2019-12-13 06:01] LABS: HEMATOCRIT 39.1 % (36.0-47.0); HEMOGLOBIN 11.8 g/dl (12.0-15.5); MEAN CORPUSCULAR HEMOGLOBIN 28.6 pg (27.0-33.0); MEAN CORPUSCULAR HGB CONC 30.2 g/dl (32.0-36.5); MEAN CORPUSCULAR VOLUME 94.9 fl (80.0-96.0); PLATELET COUNT, AUTOMATED 277 10^3/uL (150-450); RED BLOOD COUNT 4.12 10^6/uL (4.00-5.40); WHITE BLOOD COUNT 11.1 10^3/uL (4.0-10.0)
[2019-12-13 06:43] LABS: BLOOD UREA NITROGEN 21 MG/DL (7-18); CALCIUM LEVEL 8.5 MG/DL (8.5-10.1); CARBON DIOXIDE LEVEL 48 MEQ/L (21-32); CHLORIDE LEVEL 91 MEQ/L (98-107); CREATININE FOR GFR 0.78 MG/DL (0.55-1.30); GLOMERULAR FILTRATION RATE > 60.0 (>51); GLUCOSE, FASTING 268 MG/DL (70-100); MAGNESIUM LEVEL 2.2 MG/DL (1.8-2.4); POTASSIUM SERUM 4.3 MEQ/L (3.5-5.1); SODIUM LEVEL 138 MEQ/L (136-145)
[2019-12-13] MEDS: LEVALBUTEROL 1.25 MG/0.5 ML CONCENTRATE NEB INH SCH ×4 (08:00→20:00)
[2019-12-13] MEDS: ADVAIR HFA 230/21MCG INHALER INH SCH ×2 (08:37→20:40)
--- NOTE | 2019-12-13 08:45 | IPNPDOC ---
Subjective Date Seen The patient was seen on 12/13/19. Subjective Chief Complaint/HPI COPD exacerbation Events since last encounter Continues to work on weaning down on oxygen needs. Uses 3LNC at home. Currently on 5LNC. Has passed PT for HSE Constitutional: Denies: Chills, Fever, Night Sweats Pulmonary: Reports: Dyspnea (at baseline per patient report. ) Cardiovascular: Denies: Chest Pain, Palpitations, Orthopnea, Paroxysmal Noc. Dyspnea, Lt Headedness Gastrointestinal: Denies: Nausea, Vomiting, Abdominal Pain, Diarrhea, Constipation Psych: Reports: Mood Normal; Denies: Depression, Memory Issues Objective Physical Examination General Exam: Positive: Alert, Cooperative, No Acute Distress Neck Exam: Positive: Supple; Negative: JVD, Lymphadenopathy Chest Exam: Positive: Diminished Heart Exam: Positive: Rate Normal, Normal S1, Normal S2 Abdomen Exam: Positive: Normal bowel sounds, Soft; Negative: Tenderness Extremity Exam: Negative: Edema Neuro Exam: Positive: Normal Speech Psych Exam: Positive: Mental status NL, Mood NL Assessment /Plan Problems (1) Acute and chronic respiratory failure with hypercapnia Status: Acute Response to Treatment: Stable Discussed With: Patient Problem Specific Plan: Monitor Clinically, Repeat Labs Problem Text: 12/13/2019: continue to wean oxygen to baseline. DC home today/tomorrow. 12/12/2019: weaning to NC. PT eval today. DC home in 1-2 days. 12/11/19:Will provide VM due to mouth breathing and desaturation. Respiratory therapy monitoring and will wean accordingly. Pt this morning reports slight improvement. On 5 L, at home usually on 3, recently increased to 4L, SM 60 mg q8h, nebs. Will need PT prior to DC. (2) COPD exacerbation Status: Acute Problem Text: See above. (3) Type 2 diabetes mellitus Status: Chronic Problem Text: Will resume Metformin. (4) Physical deconditioning Status: Chronic Problem Text: Needs PT. (5) Hypomagnesemia Status: Resolved Problem Text: 12/11/19: mag ox 400 mg po daily added on. replaced on admission, now 2.1, monitor. Plan/VTE VTE Prophylaxis Ordered?: Yes VS, I&O, 24H, Fishbone Vital Signs/I&O Vital Signs Date Time Temp Pulse Resp B/P (MAP) Pulse Ox O2 Delivery O2 Flow Rate FiO2 12/13/19 06:00 91 Nasal Cannula 8.0 12/13/19 04:00 96.8 115 19 141/87 (105) 12/12/19 08:00 40 I&O- Last 24 Hours up to 6 AM 12/13/19 06:00 Intake Total 1245 ml Output Total 1400 ml Balance -155 ml Laboratory Data 24H LABS Laboratory Tests 2 12/13/19 05:48: Nucleated Red Blood Cells % (auto) 0.3H, Anion Gap 23H, Glomerular Filtration Rate > 60.0, Calcium Level 8.5, Magnesium Level 2.2 CBC/BMP Laboratory Tests 12/13/19 05:48 Microbiology Microbiology 12/10/19 Gram Stain - Final, Complete 12/10/19 Sputum Culture - Final, Complete Yeast Like Organism 12/09/19 Respiratory Virus Panel (PCR) ([facility]) - Final, Complete Franchesca Solorzano BRAKE HOLDER Dec 13, 2019 08:45
[2019-12-13] MEDS: FUROSEMIDE 40 MG TAB PO SCH (09:07)
[2019-12-13] MEDS: DULoxetine 30 MG CAP (CYMBALTA) PO SCH (09:08)
[2019-12-13] MEDS: predniSONE 20 MG TAB PO SCH ×2 (09:08→20:55)
[2019-12-13] MEDS: OMEPRAZOLE 20 MG CAP PO SCH (09:08)
[2019-12-13] MEDS: MAGNESIUM OXIDE 400 MG TAB (MAG-OX) PO SCH (09:08)
[2019-12-13] MEDS: metFORMIN (GLUCOPHAGE) 1000 MG TABLET PO SCH ×2 (09:08→17:49)
[2019-12-13] MEDS: GABAPENTIN 300 MG CAP PO SCH ×3 (09:08→20:55)
[2019-12-13] MEDS: ENOXAPARIN 40 MG/0.4 ML SYRINGE (J1650) SC SCH (09:09)
[2019-12-13] MEDS: OLANZapine 5 MG TAB PO SCH (09:09)
[2019-12-13] MEDS: ATORVASTATIN 20 MG TAB PO SCH (20:55)
[2019-12-13] MEDS: PARoxetine 20 MG TAB PO SCH (20:56)
[2019-12-13] MEDS: oxyCODONE 5MG TAB PO PRN (20:57)
[2019-12-14] VITALS (10 sets, daily range): BP systolic 148–168; BP diastolic 78–86; O2SAT 89–94
[2019-12-14] MEDS: SLF 3 ML SYR IV SCH ×2 (05:46→14:00)
[2019-12-14] MEDS: LEVOTHYROXINE 25MCG TABLET (0.025MG) PO SCH (05:46)
[2019-12-14 06:43] LABS: HEMATOCRIT 38.9 % (36.0-47.0); HEMOGLOBIN 11.9 g/dl (12.0-15.5); MEAN CORPUSCULAR HEMOGLOBIN 28.7 pg (27.0-33.0); MEAN CORPUSCULAR HGB CONC 30.6 g/dl (32.0-36.5); MEAN CORPUSCULAR VOLUME 93.7 fl (80.0-96.0); PLATELET COUNT, AUTOMATED 284 10^3/uL (150-450); RED BLOOD COUNT 4.15 10^6/uL (4.00-5.40); WHITE BLOOD COUNT 11.2 10^3/uL (4.0-10.0)
[2019-12-14 07:05] LABS: GLUCOSE, FASTING 281 MG/DL (70-100)
[2019-12-14 07:06] LABS: BLOOD UREA NITROGEN 22 MG/DL (7-18); CALCIUM LEVEL 9.3 MG/DL (8.5-10.1); CARBON DIOXIDE LEVEL 40 MEQ/L (21-32); CHLORIDE LEVEL 89 MEQ/L (98-107); CREATININE FOR GFR 0.84 MG/DL (0.55-1.30); GLOMERULAR FILTRATION RATE > 60.0 (>51); MAGNESIUM LEVEL 2.2 MG/DL (1.8-2.4); POTASSIUM SERUM 4.3 MEQ/L (3.5-5.1); SODIUM LEVEL 135 MEQ/L (136-145)
[2019-12-14] MEDS: ADVAIR HFA 230/21MCG INHALER INH SCH (07:27)
[2019-12-14] MEDS: LEVALBUTEROL 1.25 MG/0.5 ML CONCENTRATE NEB INH SCH ×2 (07:27→11:11)
[2019-12-14] MEDS ORDERED: glipiZIDE *2.5MG* 1/2 TABLET PO SCH (07:30)
[2019-12-14] MEDS: predniSONE 20 MG TAB PO SCH (08:49)
[2019-12-14] MEDS: ENOXAPARIN 40 MG/0.4 ML SYRINGE (J1650) SC SCH (08:49)
[2019-12-14] MEDS: OMEPRAZOLE 20 MG CAP PO SCH (08:49)
[2019-12-14] MEDS: MAGNESIUM OXIDE 400 MG TAB (MAG-OX) PO SCH (08:49)
[2019-12-14] MEDS: OLANZapine 5 MG TAB PO SCH (08:50)
[2019-12-14] MEDS: GABAPENTIN 300 MG CAP PO SCH (08:50)
[2019-12-14] MEDS: DULoxetine 30 MG CAP (CYMBALTA) PO SCH (08:50)
[2019-12-14] MEDS: metFORMIN (GLUCOPHAGE) 1000 MG TABLET PO SCH (08:50)
[2019-12-14] MEDS: FUROSEMIDE 40 MG TAB PO SCH (08:50)
[2019-12-14] MEDS ORDERED: IPRATROPIUM 0.02% SOLN 0.5MG/2.5 ML NEB INH SCH (12:00)
[2019-12-14] MEDS ORDERED: GLIP5TAB8 PO (12:27)
[2019-12-14] MEDS ORDERED: PRED10TA2 PO (12:27)
--- NOTE | 2019-12-14 19:01 | DSES ---
DATE OF ADMISSION: 12/09/2019 DATE OF DISCHARGE: 12/14/2019 REASON FOR ADMISSION: The patient admitted by hospitalist service on 12/09/2019 with a COPD exacerbation. 59 years old with diabetes mellitus, COPD and chronic hypoxemic and hypercarbic respiratory failure on 3 liters nasal cannula at home, pulse oximetry was 77% in the ED. She was placed on PHP. ABG showed pH 7.31, pCO2 of 84.3 and bicarbonate 50. She was put on BiPap and given Solu-Medrol which improved her status. Weaned oxygen and yesterday was requiring 5 liters to maintain oxygen saturations above 89%. Today with 4 liters se is able demonstrate oxygen saturations at 90-92, on 3 liters she is 88-90. She has been on prednisone 60 mg by mouth twice a day, but essentially no wheezing. She is very close to her baseline state, therefore will reduce prednisone to 60 mg daily going home and resume her usual medications. Glipizide has been added because her diabetes seems to be creating higher sugars as a result perhaps of steroid use. Added glipizide in the hospital, she may be able to transition to more effective long-term therapy after discharge. DISCHARGE MEDICATIONS: On the day of discharge includes: - 60 mg prednisone daily - glipizide 2.5 mg daily -albuterol nebulizers 2.5 mg every 4 hours while awake and as needed - ammonia lactate to dry skin - atorvastatin 20 mg by mouth at bedtime - bisoprolol 2.5 mg daily - Dexilant 60 mg daily - doxycycline 100 mg by mouth twice a day will be stopped, she has completed 8 days of therapy which should be sufficient given that there was no obvious infiltrate - duloxetine 60 mg by mouth daily - furosemide 40 mg daily - gabapentin 600 mg by mouth three times a day - levothyroxine 25 mcg daily - metformin 1000 mg by mouth twice a day - olanzapine 5 mg daily - oxycodone 5 mg twice a day as needed for pain - paroxetine 40 mg daily - Trulance 3 mg nightly for chronic constipation / irritable bowel syndrome - salmeterol / Advair 500-50 Diskus one inhalation twice a day - Incruse Ellipta one puff daily She will resume these usual chronic medications: - prednisone 20 mg by mouth three times a day for 14 days. DISCHARGE DIAGNOSES: COPD exacerbation, diabetes mellitus type 2 worsened by corticosteroid use, depression, she had transient hypomagnesemia during hospital stay, followup confirmation of persistent adequate levels would be reasonable. Activity will be as tolerated. Following a diet that is 2 grams sodium, controlled carbohydrate. Encourage activity as tolerated. Oxygen at discharge will be 4 liters. She had been at 3 prior to discharge and again as noted above at 3 liters she is just barely adequate at 88-90% and reports subjective dyspnea at this level. At 4 liters she is comfortable. She has been at 4 liters for many days without evidence of excessive suppression of respiratory drive. Would be desirable to reduce her oxygen delivery as an outpatient but at this point she is safe at the current level and considered adequately improved to enable discharge.
[2019-12-15] MEDS ORDERED: glipiZIDE *2.5MG* 1/2 TABLET PO SCH (07:30)
== END 2019-12-14 14:41 | disposition home health service (06) | DRG 189 ==
LOC: M ED 14:17 → EDBD 14:17 → M ED INP 17:20 → CANRESERV 18:40 → ENRESERVTM 18:40 → ENRESERVDT 18:40 → ENRESERVTM 19:47 → ENRESERVDT 19:47 → M PCU 20:05
PROVIDERS: ADMIT Internal Medicine; ATTEND Family Medicine
DX: J96.22 Acute and chronic respiratory failure with hypercapnia (principal); J44.1 Chronic obstructive pulmonary disease with (acute) exacerbation; I50.30 Unspecified diastolic (congestive) heart failure; J96.21 Acute and chronic respiratory failure with hypoxia; Z99.81 Dependence on supplemental oxygen; G89.29 Other chronic pain; M54.2 Cervicalgia; Z79.891 Long term (current) use of opiate analgesic; Z79.51 Long term (current) use of inhaled steroids; E09.9 Drug or chemical induced diabetes mellitus without complications; Z87.891 Personal history of nicotine dependence; R00.2 Palpitations; E78.5 Hyperlipidemia, unspecified; I11.0 Hypertensive heart disease with heart failure; K21.9 Gastro-esophageal reflux disease without esophagitis; N39.3 Stress incontinence (female) (male); E34.8 Other specified endocrine disorders; G25.0 Essential tremor; G43.909 Migraine, unspecified, not intractable, without status migrainosus; M43.22 Fusion of spine, cervical region; Z96.652 Presence of left artificial knee joint; Z90.79 Acquired absence of other genital organ(s); E83.42 Hypomagnesemia; F32.9 Major depressive disorder, single episode, unspecified; E03.9 Hypothyroidism, unspecified; E66.9 Obesity, unspecified; Z68.34 Body mass index [BMI] 34.0-34.9, adult; Z79.84 Long term (current) use of oral hypoglycemic drugs; Z79.899 Other long term (current) drug therapy; R54 Age-related physical debility; Z72.3 Lack of physical exercise

== ENCOUNTER 2019-12-21 15:10 | Inpatient (IN) | payer MEDICARE, MEDICAID ==
[~2019-12-21] VITALS: Ht 170.2 cm; Wt 98.6 kg
[~2019-12-21 15:10] MED LIST changes: +AMMO12CR7 TOP; +BISO5TAB14 PO; +DOXY100T PO; +GLIP5TAB8 PO; +METF500T13 PO
[2019-12-21] MEDS ORDERED: IPRATROPIUM 0.5MG/ALBUTEROL 2.5MG INH SOL UD 3ML (DUONEB)(J7620) NEB ONE (15:30)
[2019-12-21] MEDS ORDERED: methylPREDNISolone INJ 125 MG/2 ML VIAL (J2930) IV ONE (15:30)
[2019-12-21 15:38] LABS: ABG O2 SATURATION 99.5 % (95.0-99.0)
[2019-12-21 15:40] LABS: ABG BASE EXCESS 10.8 (-2.0-2.0); ABG HCO3 39.3 MEQ/L (22.0-26.0); ABG PARTIAL PRESSURE CO2 71.9 mmHg (35.0-45.0); ABG PARTIAL PRESSURE O2 239.3 mmHg (75.0-100.0); ABG STANDARD HCO3 34.6 MEQ/L (22.0-26.0); ABG TOTAL CO2 41.6 MEQ/L (22.0-29.0); ABG pH (ARTERIAL) 7.356 UNITS (7.350-7.450)
[2019-12-21 15:57] LABS: BASO # 0.1 10^3/uL (0.0-0.2); BASO % 0.6 % (0.0-1.0); EOS # 0.5 10^3/uL (0.0-0.5); EOS % 3.1 % (0.0-3.0); HEMATOCRIT 46.3 % (36.0-47.0); HEMOGLOBIN 13.9 g/dl (12.0-15.5); LYMPH # 1.8 10^3/uL (1.5-5.0); LYMPH % 12.2 % (24.0-44.0); MEAN CORPUSCULAR HEMOGLOBIN 28.9 pg (27.0-33.0); MEAN CORPUSCULAR VOLUME 96.3 fl (80.0-96.0); MONO # 0.9 10^3/uL (0.0-0.8); MONO % 5.8 % (0.0-5.0); NEUTROPHILS # 11.2 10^3/uL (1.5-8.5); NEUTROPHILS % 75.1 % (36.0-66.0); PLATELET COUNT, AUTOMATED 278 10^3/uL (150-450); RED BLOOD COUNT 4.81 10^6/uL (4.00-5.40); WHITE BLOOD COUNT 14.9 10^3/uL (4.0-10.0)
[2019-12-21] MEDS ORDERED: FUROSEMIDE 100 MG/10 ML VIAL (J1940) IV ONE (16:00)
[2019-12-21 16:09] LABS: INR 0.93; PROTHROMBIN TIME 12.2 SECONDS (11.8-14.0)
[2019-12-21] MEDS ORDERED: FUROSEMIDE 40 MG/4 ML VIAL (J1940) IV ONE (16:15)
[2019-12-21 16:22] LABS: ALBUMIN 3.1 GM/DL (3.2-5.2); ALT/SGPT 37 U/L (12-78); BILIRUBIN,DIRECT 0.2 MG/DL (0.0-0.2); BILIRUBIN,TOTAL 0.6 MG/DL (0.2-1.0); BLOOD UREA NITROGEN 17 MG/DL (7-18); CALCIUM LEVEL 8.6 MG/DL (8.5-10.1); CARBON DIOXIDE LEVEL 40 MEQ/L (21-32); CHLORIDE LEVEL 92 MEQ/L (98-107); CK-MB VALUE MASS < 1.0 NG/ML (<3.6); CPK CREATINE PHOSPHOKINASE 32 U/L (26-192); CREATININE FOR GFR 0.84 MG/DL (0.55-1.30); GLOMERULAR FILTRATION RATE > 60.0 (>51); GLUCOSE, FASTING 125 MG/DL (70-100); MB/CK RELATIVE INDEX 3.12 (< OR =4); NT-PRO BNP 153 PG/ML (<125); POTASSIUM SERUM 3.8 MEQ/L (3.5-5.1); SODIUM LEVEL 139 MEQ/L (136-145); THYROXINE (T4) 11.6 UG/DL (4.5-12.0); TOTAL PROTEIN 6.8 GM/DL (6.4-8.2); TROPONIN I < 0.02 NG/ML (< 0.10)
[2019-12-21 17:04] LABS: ABG O2 SATURATION 94.6 % (95.0-99.0)
[2019-12-21 17:05] LABS: ABG BASE EXCESS 8.6 (-2.0-2.0); ABG HCO3 35.9 MEQ/L (22.0-26.0); ABG PARTIAL PRESSURE O2 75.4 mmHg (75.0-100.0); ABG STANDARD HCO3 32.3 MEQ/L (22.0-26.0); ABG TOTAL CO2 37.8 MEQ/L (22.0-29.0)
[2019-12-21 17:06] LABS: ABG PARTIAL PRESSURE CO2 62.1 mmHg (35.0-45.0)
--- NOTE | 2019-12-21 17:57 | ECGEPIP ---
[facility] - ED Test Date: 2019-12-21 Pat Name: ARTHUR ALSTON Department: Room: - Gender: Female Head Up Operator: MOY : [id number] Requested By: LISA VALADEZ Order Number: [id number] Reading MD: Loyda Kerns Measurements Intervals [place] Rate: 127 P: 64 MT: 141 QRS: 70 QRSD: 69 T: 71 QT: 287 QTc: 417 Interpretive Statements SINUS TACHYCARDIA WITH OCCASIONAL SUPRAVENTRICULAR PREMATURE COMPLEXES ABNORMAL RHYTHM ECG NSTTW abnormalities SIMILAR 12/09/19 Electronically Signed on 12-21-2019 17:56:33 EST by Loyda Kerns
[2019-12-21] MEDS ORDERED: PRED10TA2 PO (18:44)
[2019-12-21] MEDS ORDERED: ALBUTEROL SULFATE 2.5 MG/0.5 ML INH NEB SOLN NEB PRN (19:30)
[2019-12-21] MEDS ORDERED: ACETAMINOPHEN TAB 650MG DOSE (2X325MG) PO PRN (19:30)
[2019-12-21] MEDS ORDERED: MOM 30ML SUSPENSION UDC PO PRN (19:30)
[2019-12-21] MEDS ORDERED: MAALOX 30 ML SUSP *UDC PO PRN (19:30)
--- NOTE | 2019-12-21 19:30 | HPEPDOC ---
[facility] Medical History & Physical Date of Admission Dec 21, 2019 Date of Service: Dec 21, 2019 Primary Care Physician: DELANEY JEAN PA-C Attending Physician: Tim Spencer MD History and Physical TIME OF SERVICE: 8:32 PM CHIEF COMPLAINT: Shortness of breath HISTORY OF PRESENT ILLNESS: This is a 53 old female presents complaints of shortness of breath for a few days, associated with a runny nose, fevers and chills productive cough and malaise. She denies having chest pain, abdominal pain, or sick contacts. Per EMS notes, when they found her, her O2 sats were in the 80s on 3 L of oxygen. After they put her on CPAP her end-tidal CO2 improved from 60-45. REVIEW OF SYSTEMS: 12 point review of systems negative except as listed in HPI PMH/PSH COPD Chronic oxygen-dependent respiratory failure. 3 L Depression Dyslipidemia. Hypertension / 1 diastolic dysfunction Hypothyroidism. NIDDM GERD Urinary incontinence. Migraines Essential tremor Constipation Cervical spine fusion with rods Left total knee replacement Tubal ligation SH Former smoker FAMILY HISTORY: Cancer ALLERGIES: Please see below. HOME MEDICATIONS: Please see below. PHYSICAL EXAMINATION: Vital Signs Date Time Temp Pulse Resp B/P (MAP) Pulse Ox O2 Delivery O2 Flow Rate FiO2 12/21/19 15:13 132 26 129/78 95 NIPPV (BIPAP/CPAP) 12/21/19 15:20 50 12/21/19 16:10 99.8 12/21/19 19:10 5.0 GEN: well nourished / well developed/ NAD INTEGUMENT: She doesn't have facial plethora HEENT:NCAT / lips are not cyanotic / he does not have pursed lip breathing / trachea is midline / NC in place / maximal laryngeal height is <4cm / mucus membranes moist and pink / sclera anicteric CVS: RRR LUNGS: there is no nasal flaring / not able to speak full sentences without stopping to take a breath / there is decreased respiratory expansion/ forced expiratory time is > 9 sec ABDOMEN: soft & not tender with palpation MSK/EXTREMITIES: She doesn't have finger nail clubbing/ range of motion intact in all 4 extremities / NEURO: CN 2-12 are grossly intact / speech is not dysarthric / there is asterixis PSYCH: alert and oriented to person place and time/ able to understand and follow all commands LABORATORY DATA: IMAGING: Chest x-ray there appears to be primary vascular congestion, but the final read is pending MICROBIOLOGY: Please see below. ASSESSMENT: Ms. Reza is a 59 old female with a past medical history of advanced COPD with oxygen-dependent respiratory failure, depression, dyslipidemia, and 1 diastolic dysfunction, GERD, incontinence, migraines, essential tremor, and constipation who is admitted for management of SIRS and acute COPD PLAN: 1. SIRS, likely reactive due to viral infection Criteria include HR >90 / WBC >12 Lactic acid was 2.5 Plan: admit to floor/ telemetry / Sepsis protocol w/ levofloxacin/ no IV fluids because she has congestion on chest x-ray /f/u blood cx, & sputum Cx / Acetaminophen PRN for fever / target MAP 65 to 70 / f/u Is and Os with target UOP of ablest 0.5 ml/kg/H / target serum glucose 140-180 while acutely ill 2. Acute hypoxemic hypercarbic respiratory failure secondary to acute COPD Is resolving, she is no longer on CPAP She has chronic oxygen-dependent respiratory failure & at baseline and uses 3 L Trigger may be: viral infection Influenza A and B are negative Plan: supplemental O2 / continuous pulse oximetry / aspiration precautions / COPD diet / f/u final chest x-ray report ABG, sputum cx / Dunebs Q6H, Albuterol Q4HP, Prednisone + PPI / Levofloxacin / Tessalon Pearls / refer to Pulmonol ogist for repeat PFTs and Pulmonary Rehab when ready for d/c 3. Chronic Hypertension / 1 diastolic dysfunction She received Lasix in the ER Plan: Follow-up eyes and O's and daily weights/c/w dose of Lasix, bisprolol 4. Hypothyroidism - Plan: Levothyroxine 5. NIDDM - Plan: f/u accuchecks & A1C / hypoglycemia protocol / sliding scale insulin / hold oral anti-glycemics / gabapentin 6. Depression - Plan: Duloxetine, paroxetine, olanzapine 7. Dyslipidemia - Plan: Atorvastatin 8. GERD - Plan: PPI 9. Obesity with co-existing DM complicates her care - Plan: f/u w PCP for STOP BANG questionnaire, desk pen set assembler consult / recommend cardiovascular exercise for 40 min 4-5 days a week DVT PROPHYLAXIS: Lovenox DISPOSITION: Home after more than 2 midnight's stay Home Medications Scheduled Atorvastatin Calcium (Atorvastatin Calcium) 20 Mg Tab, 20 MG PO QHS Bisoprolol Fumarate (Bisoprolol Fumarate) 5 Mg Tablet, 2.5 MG PO DAILY Dexlansoprazole (Dexilant) 60 Mg Cap, 60 MG PO DAILY Duloxetine Hcl (Duloxetine HCl) 60 Mg Capsule.dr, 60 MG PO DAILY Furosemide (Furosemide) 40 Mg Tablet, 40 MG PO DAILY Gabapentin (Gabapentin) 600 Mg Tab, 600 MG PO TID Levothyroxine Sodium (Levothyroxine Sodium) 25 Mcg Tablet, 25 MCG PO DAILY Metformin HCl (Metformin HCl) 500 Mg Tablet, 1,000 MG PO BID Olanzapine (Olanzapine) 5 Mg Tablet, 5 MG PO DAILY Paroxetine HCl (Paroxetine HCl) 40 Mg Tab, 40 MG PO QHS Plecanatide (Trulance) 3 Mg Tablet, 3 MG PO QHS Prednisone (Prednisone) 10 Mg Tablet, 20 MG PO TID Salmeterol/Fluticasone (Advair 500-50 Diskus) 1 Each Blst.w.dev, 1 PUFF INH BID Umeclidinium [place] (Incruse Ellipta) 62.5 Mcg/Inh Inh, 1 PUFF INH DAILY TAKES AT NOON Scheduled PRN Albuterol Sulfate (Ventolin Hfa) 18 Gm Hfa.aer.ad, 2 PUFF INH Q4H PRN for SHORTNESS OF BREATH Ammonium Lactate (Ammonium Lactate) 12% Cream..g., 1 DOSE TOP BID PRN for DRY SKIN APPLY TO FEET Oxycodone HCl (Oxycodone HCl) 5 Mg Tab, 5 MG PO BID PRN for PAIN Allergies Coded Allergies: No Known Allergies (Verified Allergy, Unknown, 12/09/19) A-FIB/CHADSVASC A-FIB History Current/History of A-Fib/PAF?: No Current PO Anticoag Therapy: No NICOLE RESENDEZ MD Dec 21, 2019 19:30
[2019-12-21] MEDS ORDERED: LevoFLOXacin IV 750 MG in IV 1 EA IV SCH (20:00)
[2019-12-21] MEDS: IPRATROPIUM 0.5MG/ALBUTEROL 2.5MG INH SOL UD 3ML (DUONEB)(J7620) NEB SCH (20:22)
[2019-12-21 20:56] VITALS: BP 132/84
[2019-12-21] MEDS: DOCUSATE SODIUM 100 MG CAP PO SCH (21:00)
[2019-12-21 22:00] VITALS: BP 143/86
[2019-12-21] MEDS ORDERED: DEXTROSE 50% 50 ML SYRINGE IV PRN (23:30)
[2019-12-21] MEDS ORDERED: GLUCOSE 4 GM CHEW TABLET PO PRN (23:30)
[2019-12-21] MEDS ORDERED: GLUCAGON FOR INJ 1 MG VIAL (J1610) SC PRN (23:30)
[2019-12-22] VITALS (7 sets, daily range): BP systolic 117–145; BP diastolic 76–85; O2SAT 92
[2019-12-22] MEDS: GABAPENTIN 300 MG CAP PO SCH ×4 (00:12→20:56)
[2019-12-22] MEDS: PARoxetine 20 MG TAB PO SCH ×2 (00:12→20:57)
[2019-12-22] MEDS: ATORVASTATIN 20 MG TAB PO SCH ×2 (00:12→20:56)
[2019-12-22] MEDS: HumaLOG INSULIN (NovoLOG) PER UNIT SC SCH ×5 (00:13→20:57)
[2019-12-22] MEDS: IPRATROPIUM 0.5MG/ALBUTEROL 2.5MG INH SOL UD 3ML (DUONEB)(J7620) NEB SCH ×4 (02:04→20:02)
[2019-12-22 05:57] LABS: HEMATOCRIT 40.5 % (36.0-47.0); HEMOGLOBIN 12.6 g/dl (12.0-15.5); MEAN CORPUSCULAR HGB CONC 31.1 g/dl (32.0-36.5); MEAN CORPUSCULAR VOLUME 93.3 fl (80.0-96.0); PLATELET COUNT, AUTOMATED 227 10^3/uL (150-450); RED BLOOD COUNT 4.34 10^6/uL (4.00-5.40); WHITE BLOOD COUNT 9.1 10^3/uL (4.0-10.0)
[2019-12-22 06:30] LABS: BLOOD UREA NITROGEN 20 MG/DL (7-18); CALCIUM LEVEL 8.9 MG/DL (8.5-10.1); CARBON DIOXIDE LEVEL 43 MEQ/L (21-32); CHLORIDE LEVEL 91 MEQ/L (98-107); CREATININE FOR GFR 0.74 MG/DL (0.55-1.30); GLOMERULAR FILTRATION RATE > 60.0 (>51); GLUCOSE, FASTING 227 MG/DL (70-100); MAGNESIUM LEVEL 1.9 MG/DL (1.8-2.4); POTASSIUM SERUM 3.8 MEQ/L (3.5-5.1); SODIUM LEVEL 138 MEQ/L (136-145)
--- NOTE | 2019-12-22 07:45 | REP ---
CHEST, SINGLE VIEW: Single view of the chest is performed and compared to prior study of 12/09/2019. Bibasilar fibrosis is stable. No new infiltrate is seen. Heart is normal in size. There is calcification of the thoracic aorta. Mediastinal silhouette is unchanged. IMPRESSION: Stable, chronic changes. Electronically Signed by Yogi Jones MD 12/22/2019 05:55 P
[2019-12-22] MEDS: OMEPRAZOLE 20 MG CAP PO SCH (08:41)
[2019-12-22] MEDS: DULoxetine 30 MG CAP (CYMBALTA) PO SCH (08:41)
[2019-12-22] MEDS: DOCUSATE SODIUM 100 MG CAP PO SCH ×2 (08:42→20:56)
[2019-12-22] MEDS: ENOXAPARIN 40 MG/0.4 ML SYRINGE (J1650) SC SCH (08:42)
[2019-12-22] MEDS: predniSONE 20 MG TAB PO SCH (08:42)
[2019-12-22] MEDS: BENZONATATE 100 MG CAP PO SCH ×3 (08:42→16:16)
[2019-12-22] MEDS: FUROSEMIDE 40 MG TAB PO SCH (08:42)
[2019-12-22] MEDS: OLANZapine 5 MG TAB PO SCH (08:43)
[2019-12-22] MEDS: bisoproloL fumarate 5 MG TAB PO SCH (08:43)
[2019-12-22] MEDS: LEVOTHYROXINE 25MCG TABLET (0.025MG) PO SCH (08:43)
[2019-12-22] MEDS: PANTOPRAZOLE 40MG TAB (PROTONIX) PO SCH (08:43)
[2019-12-22] MEDS ORDERED: ENTER DRUG NAME HERE (PATIENT'S OWN MED) PO SCH (09:00)
[2019-12-22] MEDS: DOXYCYCLINE HYCLATE 100 MG TAB PO SCH ×2 (10:05→20:57)
--- NOTE | 2019-12-22 13:57 | IPN ---
DATE: 12/22/2019 Geetha is seen in [facility] admitted with exacerbation of chronic obstructive pulmonary disease (COPD). She has these recurrently. She has chronic hypercarbic respiratory failure, is oxygen dependent, uses 3 liters at baseline. Presumed viral etiology. Also she has diastolic dysfunction, hypothyroidism, type 2 diabetes. She feels a little better than yesterday, less shortness of breath. Still feels she is nowhere near her baseline. PHYSICAL EXAMINATION: Afebrile, vital signs stable. Oxygen saturation 93%. General appearance: Cushingoid. Resting in bed. HEENT: Unremarkable. Lungs expiratory wheezes both bases. Heart regular rhythm. Abdomen soft, nontender. Trace peripheral edema. LABORATORIES: White count is 9.1, hemoglobin 12.6, platelets 227. Sodium 138, potassium 3.8, BUN 20, creatinine 0.7, glucose 227. IMPRESSION: 1. Exacerbation of COPD from presumed bronchitis. She is on empiric antibiotic therapy with Levaquin. I think that this could be discontinued in the face of the clear chest x-ray. Using oral doxycycline as empiric antibiotic therapy with a narrower spectrum than the Levaquin. Will continue IV steroids, nebulized bronchodilator. 2. History of diastolic congestive heart failure. She has mild diastolic dysfunction on her echocardiogram. I think her edema is more likely related to right sided failure. She is on her home dose of Lasix, which we will continue. 3. Diabetes. Sliding scale insulin with coverage. Blood sugars are probably elevated while on the steroids. 4. History of depression. Continue her current antidepressant medication. She is on Zyprexa 5 mg daily, Paxil 40 mg at bedtime and duloxetine 60 mg daily with no evidence of serotonin excess clinically. 5. Hyperlipidemia. Continue atorvastatin 20 mg daily. 6. Hypothyroidism. Continue current dose of levothyroxine 25 mcg daily. 7. Deep vein thrombosis (DVT) prophylaxis with Lovenox has been ordered.
[2019-12-23] VITALS (8 sets, daily range): BP systolic 126–140; BP diastolic 78–92; O2SAT 90–92
[2019-12-23] MEDS: BENZONATATE 100 MG CAP PO SCH ×3 (00:34→17:08)
[2019-12-23] MEDS: IPRATROPIUM 0.5MG/ALBUTEROL 2.5MG INH SOL UD 3ML (DUONEB)(J7620) NEB SCH ×4 (04:05→20:14)
[2019-12-23 06:10] LABS: HEMATOCRIT 36.8 % (36.0-47.0); HEMOGLOBIN 11.5 g/dl (12.0-15.5); MEAN CORPUSCULAR HEMOGLOBIN 29.3 pg (27.0-33.0); MEAN CORPUSCULAR HGB CONC 31.3 g/dl (32.0-36.5); MEAN CORPUSCULAR VOLUME 93.6 fl (80.0-96.0); PLATELET COUNT, AUTOMATED 268 10^3/uL (150-450); RED BLOOD COUNT 3.93 10^6/uL (4.00-5.40); WHITE BLOOD COUNT 17.1 10^3/uL (4.0-10.0)
[2019-12-23 07:30] LABS: BLOOD UREA NITROGEN 20 MG/DL (7-18); CALCIUM LEVEL 8.3 MG/DL (8.5-10.1); CARBON DIOXIDE LEVEL 37 MEQ/L (21-32); CHLORIDE LEVEL 96 MEQ/L (98-107); CREATININE FOR GFR 0.75 MG/DL (0.55-1.30); GLOMERULAR FILTRATION RATE > 60.0 (>51); GLUCOSE, FASTING 213 MG/DL (70-100); POTASSIUM SERUM 3.8 MEQ/L (3.5-5.1); SODIUM LEVEL 137 MEQ/L (136-145)
--- NOTE | 2019-12-23 09:05 | IPNPDOC ---
Subjective Date Seen The patient was seen on 12/23/19. Subjective Chief Complaint/HPI COPD Events since last encounter States breathing is near baseline. has remained afebrile. Constitutional: Denies: Chills, Fever, Night Sweats Skin: Denies: Rash, Lesions, Breakdown Pulmonary: Reports: Dyspnea, Cough Cardiovascular: Denies: Chest Pain, Palpitations, Orthopnea, Paroxysmal Noc. Dyspnea, Lt Headedness Gastrointestinal: Denies: Nausea, Vomiting, Abdominal Pain, Diarrhea, Constipation Genitourinary: Denies: Dysuria, Frequency, Incontinence, Retention Psych: Reports: Mood Normal; Denies: Depression, Memory Issues Objective Physical Examination General Exam: Positive: Alert, No Acute Distress Neck Exam: Positive: Supple; Negative: JVD, thyromegaly Chest Exam: Positive: Normal air movement, Diminished Heart Exam: Positive: Rate Normal, Regular Rhythm, Normal S1, Normal S2; Negative: Murmurs, Rubs Telemetry: Positive: No significant arrhythmia Abdomen Exam: Positive: Normal bowel sounds, Soft; Negative: Tenderness, Hepatospenomegaly Extremity Exam: Positive: Normal pulses; Negative: Clubbing, Cyanosis, Edema Psych Exam: Positive: Mental status NL, Mood NL, Oriented x 3 Assessment /Plan Problems (1) COPD exacerbation Status: Acute Problem Text: Continue Prednisone, Doxycycline, inhaled corticosteroids. PT eval today. Anticipate DC home in 1-2 days on HD 3L NC 02 (2) Acute and chronic respiratory failure with hypercapnia Status: Acute (3) Type 2 diabetes mellitus Status: Chronic Problem Text: monitor blood sugars, RISS per protocol. (4) Atrial fibrillation Status: Chronic Response to Treatment: Stable Problem Text: rate controlled. continue Eliquis (5) CHF exacerbation Status: Chronic Response to Treatment: Stable Problem Text: Euvolemic on HD fur 40 (6) Chronic pain syndrome Status: Chronic (7) Peripheral vascular disease Status: Chronic (8) Hypothyroidism Status: Chronic Problem Text: continue home dose of Levothyroxine Plan/VTE VTE Prophylaxis Ordered?: Yes VS, I&O, 24H, Fishbone Vital Signs/I&O Vital Signs Date Time Temp Pulse Resp B/P (MAP) Pulse Ox O2 Delivery O2 Flow Rate FiO2 12/23/19 06:00 98.1 93 20 136/83 (100) 91 Nasal Cannula 3.0 12/21/19 15:20 50 I&O- Last 24 Hours up to 6 AM 12/23/19 06:00 Intake Total 1270 ml Output Total 900 ml Balance 370 ml Laboratory Data 24H LABS Laboratory Tests 2 12/22/19 11:30: Bedside Glucose (Misc Panel) 346H 12/22/19 16:45: Bedside Glucose (Misc Panel) 344H 12/22/19 20:46: Bedside Glucose (Misc Panel) 259H 12/23/19 05:29: Nucleated Red Blood Cells % (auto) 0.0, Anion Gap 4L, Glomerular Filtration Rate > 60.0, Calcium Level 8.3L CBC/BMP Laboratory Tests 12/23/19 05:29 Microbiology Microbiology 12/21/19 Respiratory Virus Panel (PCR) ([facility]) - Final, Complete 12/21/19 Blood Culture - Preliminary, Resulted No growth after 24 hours . All specim... 12/21/19 Blood Culture - Preliminary, Resulted No growth after 24 hours . All specim... Franchesca Solorzano Dec 23, 2019 09:05 Basim Meng M.D. Dec 23, 2019 16:58
[2019-12-23] MEDS: HumaLOG INSULIN (NovoLOG) PER UNIT SC SCH ×4 (09:30→21:51)
[2019-12-23] MEDS: ENOXAPARIN 40 MG/0.4 ML SYRINGE (J1650) SC SCH (09:31)
[2019-12-23] MEDS: DULoxetine 30 MG CAP (CYMBALTA) PO SCH (09:31)
[2019-12-23] MEDS: PANTOPRAZOLE 40MG TAB (PROTONIX) PO SCH (09:31)
[2019-12-23] MEDS: LEVOTHYROXINE 25MCG TABLET (0.025MG) PO SCH (09:32)
[2019-12-23] MEDS: GABAPENTIN 300 MG CAP PO SCH ×3 (09:32→21:51)
[2019-12-23] MEDS: DOCUSATE SODIUM 100 MG CAP PO SCH ×2 (09:32→21:50)
[2019-12-23] MEDS: OMEPRAZOLE 20 MG CAP PO SCH (09:32)
[2019-12-23] MEDS: predniSONE 20 MG TAB PO SCH (09:33)
[2019-12-23] MEDS: oxyCODONE 5MG TAB PO PRN ×2 (09:33→21:52)
[2019-12-23] MEDS: bisoproloL fumarate 5 MG TAB PO SCH (09:36)
[2019-12-23] MEDS: OLANZapine 5 MG TAB PO SCH (09:36)
[2019-12-23] MEDS: FUROSEMIDE 40 MG TAB PO SCH (09:38)
[2019-12-23] MEDS: DOXYCYCLINE HYCLATE 100 MG TAB PO SCH ×2 (09:40→21:51)
[2019-12-23] MEDS: ATORVASTATIN 20 MG TAB PO SCH (21:50)
[2019-12-23] MEDS: PARoxetine 20 MG TAB PO SCH (21:51)
[2019-12-24] MEDS: BENZONATATE 100 MG CAP PO SCH ×2 (00:45→08:06)
[2019-12-24] MEDS: IPRATROPIUM 0.5MG/ALBUTEROL 2.5MG INH SOL UD 3ML (DUONEB)(J7620) NEB SCH ×2 (01:41→07:23)
[2019-12-24 02:00] VITALS: BP 136/91
[2019-12-24 06:00] VITALS: BP 142/88
[2019-12-24 06:08] LABS: HEMATOCRIT 40.2 % (36.0-47.0); HEMOGLOBIN 12.3 g/dl (12.0-15.5); MEAN CORPUSCULAR HEMOGLOBIN 28.9 pg (27.0-33.0); MEAN CORPUSCULAR HGB CONC 30.6 g/dl (32.0-36.5); MEAN CORPUSCULAR VOLUME 94.4 fl (80.0-96.0); PLATELET COUNT, AUTOMATED 283 10^3/uL (150-450); RED BLOOD COUNT 4.26 10^6/uL (4.00-5.40); WHITE BLOOD COUNT 13.8 10^3/uL (4.0-10.0)
[2019-12-24 06:31] LABS: BLOOD UREA NITROGEN 17 MG/DL (7-18); CARBON DIOXIDE LEVEL 42 MEQ/L (21-32); CHLORIDE LEVEL 96 MEQ/L (98-107); GLOMERULAR FILTRATION RATE > 60.0 (>51); GLUCOSE, FASTING 192 MG/DL (70-100); POTASSIUM SERUM 3.7 MEQ/L (3.5-5.1); SODIUM LEVEL 139 MEQ/L (136-145)
[2019-12-24] MEDS: DOXYCYCLINE HYCLATE 100 MG TAB PO SCH (08:06)
[2019-12-24] MEDS: PANTOPRAZOLE 40MG TAB (PROTONIX) PO SCH (08:06)
[2019-12-24] MEDS: GABAPENTIN 300 MG CAP PO SCH (08:06)
[2019-12-24] MEDS: DULoxetine 30 MG CAP (CYMBALTA) PO SCH (08:07)
[2019-12-24] MEDS: LEVOTHYROXINE 25MCG TABLET (0.025MG) PO SCH (08:07)
[2019-12-24] MEDS: OLANZapine 5 MG TAB PO SCH (08:07)
[2019-12-24] MEDS: FUROSEMIDE 40 MG TAB PO SCH (08:07)
[2019-12-24] MEDS: OMEPRAZOLE 20 MG CAP PO SCH (08:07)
[2019-12-24] MEDS: predniSONE 20 MG TAB PO SCH (08:07)
[2019-12-24] MEDS: DOCUSATE SODIUM 100 MG CAP PO SCH (08:07)
[2019-12-24 08:08] VITALS: BP 132/84
[2019-12-24] MEDS: HumaLOG INSULIN (NovoLOG) PER UNIT SC SCH (08:08)
[2019-12-24] MEDS: bisoproloL fumarate 5 MG TAB PO SCH (08:08)
[2019-12-24] MEDS: ENOXAPARIN 40 MG/0.4 ML SYRINGE (J1650) SC SCH (08:08)
[2019-12-24] MEDS ORDERED: DOXY100T PO (08:38)
[2019-12-24] MEDS ORDERED: PRED10TA2 PO (08:38)
[2019-12-24 10:00] VITALS: BP 132/66
[2019-12-24 11:05] VITALS: O2SAT 93
--- NOTE | 2019-12-24 20:43 | DSES ---
DATE OF ADMISSION: 12/21/2019 DATE OF DISCHARGE: 12/24/2019 PRIMARY CARE PHYSICIAN: JIMI Julian ATTENDING PHYSICIAN: Tim Spencer HISTORY OF PRESENT ILLNESS: This is a 53-year-old female who presented to [facility] Emergency Department (ED) for complaints of shortness of breath, runny nose, fevers, chills, cough, and malaise. She presented via emergency medical services (EMS), as they noted her oxygen saturations were in the 80s on 3 liters of oxygen via nasal cannula. Patient was placed on continuous positive airway pressure (CPAP) via EMS and was transferred to [facility]. Workup negative. Respiratory panel negative. Blood cultures remain negative. This is most likely secondary to viral infection. Patient was placed on intravenous (IV) antibiotics, steroid, nebulized steroids, and monitored. HOSPITAL COURSE: Patient continued to improve. She has returned to her baseline status per physical therapy as well as occupational therapy and has been deemed safe for discharge to home. Patient has remained afebrile throughout hospitalization. Routine medications were continued. She was placed on doxycycline by mouth as well as prednisone by mouth. PHYSICAL EXAMINATION: VITAL SIGNS: Stable. She is afebrile. HEENT: Neck is supple without lymphadenopathy or jugular venous distention (JVD). CARDIOVASCULAR: Heart rate and rhythm are irregularly irregular. PULMONARY: Lungs are clear to auscultation. Diminished bibasilar. EXTREMITIES: Bilateral lower extremities are without any edema. NEUROLOGIC: Patient is alert and oriented times three. ASSESSMENT: DISCHARGE DIAGNOSIS: 1. Chronic obstructive pulmonary disease exacerbation. 2. Acute on chronic respiratory failure with hypercapnia. SECONDARY DIAGNOSES: 1. Type 2 diabetes. 2. Atrial fibrillation. 3. Congestive heart failure exacerbation. 4. Chronic pain syndrome. 5. Peripheral vascular disease. 6. Hypothyroidism. PLAN: Patient will be discharged to home. DIET: A 2 gram sodium carbohydrate-consistent diet. ACTIVITY: As tolerated. She will continue her 3 liters nasal cannula continuous. She will followup with primary care physician (PCP) within the next 5-7 days. MEDICATIONS: - doxycycline 100 mg by mouth twice a day - Ventolin HFA two puffs every 4 hours as needed for shortness of breath - ammonium lactate one dose topically twice a day as needed for dry skin - atorvastatin calcium 20 mg by mouth at bedtime - bisoprolol 2.5 mg by mouth daily - Dexilant 60 mg by mouth daily - duloxetine 60 mg by mouth daily - furosemide 40 mg by mouth daily - gabapentin 600 mg by mouth three times a day - levothyroxine sodium 25 mcg by mouth daily - metformin 500 mg tablet two by mouth twice a day - olanzapine 5 mg by mouth daily - oxycodone 5 mg by mouth twice a day as needed for pain - paroxetine 40 mg by mouth at bedtime - Trulance 3 mg by mouth at bedtime - Advair 500/50 Diskus one puff twice a day - Incruse Ellipta one puff daily Patient's prednisone was changed from 20 mg by mouth three times a day to 40 mg by mouth daily for the next 5 days. Patient is discharged in stable and satisfactory condition with no further questions at the time of discharge.
== END 2019-12-24 12:38 | disposition home or self-care (01) | DRG 190 ==
LOC: EDBD 15:10 → EDSEX 15:10 → M ED 15:10 → M ED INP 19:24 → ENRESERVDT 20:15 → ENRESERVTM 20:15 → M MSPAV 20:55
PROVIDERS: ADMIT Internal Medicine; ATTEND Family Medicine
DX: J44.1 Chronic obstructive pulmonary disease with (acute) exacerbation (principal); J96.22 Acute and chronic respiratory failure with hypercapnia; J96.01 Acute respiratory failure with hypoxia; I50.32 Chronic diastolic (congestive) heart failure; E11.51 Type 2 diabetes mellitus with diabetic peripheral angiopathy without gangrene; I48.91 Unspecified atrial fibrillation; G89.4 Chronic pain syndrome; I73.9 Peripheral vascular disease, unspecified; E03.9 Hypothyroidism, unspecified; Z99.81 Dependence on supplemental oxygen; F32.9 Major depressive disorder, single episode, unspecified; E78.5 Hyperlipidemia, unspecified; I11.0 Hypertensive heart disease with heart failure; K21.9 Gastro-esophageal reflux disease without esophagitis; R32 Unspecified urinary incontinence; G43.909 Migraine, unspecified, not intractable, without status migrainosus; G25.0 Essential tremor; K59.00 Constipation, unspecified; M43.22 Fusion of spine, cervical region; Z96.652 Presence of left artificial knee joint; Z87.891 Personal history of nicotine dependence; E66.9 Obesity, unspecified; Z79.899 Other long term (current) drug therapy; Z79.84 Long term (current) use of oral hypoglycemic drugs

== ENCOUNTER 2019-12-30 12:11 | Inpatient (IN) | payer MEDICARE, MEDICAID ==
[~2019-12-30] VITALS: Ht 167.6 cm; Wt 96.0 kg
[2019-12-30] MEDS ORDERED: methylPREDNISolone INJ 125 MG/2 ML VIAL (J2930) IV ONE (12:30)
[2019-12-30] MEDS: IPRATROPIUM 0.5MG/ALBUTEROL 2.5MG INH SOL UD 3ML (DUONEB)(J7620) NEB PRN ×2 (12:46→13:21)
[2019-12-30 13:01] LABS: ABG HCO3 41.6 MEQ/L (22.0-26.0); ABG O2 SATURATION 93.5 % (95.0-99.0); ABG PARTIAL PRESSURE O2 69.1 mmHg (75.0-100.0); ABG STANDARD HCO3 36.7 MEQ/L (22.0-26.0); ABG TOTAL CO2 43.9 MEQ/L (22.0-29.0); ABG pH (ARTERIAL) 7.375 UNITS (7.350-7.450)
[2019-12-30 13:01] LABS: BASO # 0.1 10^3/uL (0.0-0.2); BASO % 0.8 % (0.0-1.0); EOS # 0.1 10^3/uL (0.0-0.5); EOS % 0.5 % (0.0-3.0); HEMATOCRIT 44.7 % (36.0-47.0); HEMOGLOBIN 13.2 g/dl (12.0-15.5); LYMPH # 1.4 10^3/uL (1.5-5.0); LYMPH % 10.7 % (24.0-44.0); MEAN CORPUSCULAR HEMOGLOBIN 28.4 pg (27.0-33.0); MEAN CORPUSCULAR HGB CONC 29.5 g/dl (32.0-36.5); MEAN CORPUSCULAR VOLUME 96.3 fl (80.0-96.0); MONO # 0.4 10^3/uL (0.0-0.8); MONO % 3.5 % (0.0-5.0); NEUTROPHILS # 10.2 10^3/uL (1.5-8.5); NEUTROPHILS % 80.6 % (36.0-66.0); PLATELET COUNT, AUTOMATED 233 10^3/uL (150-450); RED BLOOD COUNT 4.64 10^6/uL (4.00-5.40); WHITE BLOOD COUNT 12.7 10^3/uL (4.0-10.0)
[2019-12-30 13:03] LABS: ABG PARTIAL PRESSURE CO2 72.8 mmHg (35.0-45.0)
[2019-12-30 13:10] LABS: INR 0.91
[2019-12-30 13:19] LABS: INFLUENZA A AMPLIFICATION NEGATIVE (NEGATIVE); INFLUENZA B AMPLIFICATION NEGATIVE (NEGATIVE)
[2019-12-30 13:36] LABS: ALBUMIN 2.9 GM/DL (3.2-5.2); ALT/SGPT 28 U/L (12-78); BILIRUBIN,DIRECT 0.1 MG/DL (0.0-0.2); BILIRUBIN,TOTAL 0.5 MG/DL (0.2-1.0); BLOOD UREA NITROGEN 26 MG/DL (7-18); CALCIUM LEVEL 9.3 MG/DL (8.5-10.1); CARBON DIOXIDE LEVEL 41 MEQ/L (21-32); CHLORIDE LEVEL 92 MEQ/L (98-107); CK-MB VALUE MASS < 1.0 NG/ML (<3.6); CPK CREATINE PHOSPHOKINASE 17 U/L (26-192); GLOMERULAR FILTRATION RATE > 60.0 (>51); GLUCOSE, FASTING 184 MG/DL (70-100); MB/CK RELATIVE INDEX 5.88 (< OR =4); NT-PRO BNP 82 PG/ML (<125); POTASSIUM SERUM 4.4 MEQ/L (3.5-5.1); SODIUM LEVEL 139 MEQ/L (136-145); THYROID STIMULATING HORMONE 0.635 uIU/ML (0.358-3.740); TOTAL PROTEIN 6.4 GM/DL (6.4-8.2); TROPONIN I < 0.02 NG/ML (< 0.10)
[2019-12-30] MEDS ORDERED: ISOVUE-370 76% 100ML VIAL (Q9967) As Ordered ONE (13:40)
--- NOTE | 2019-12-30 14:11 | REP ---
CHEST X-RAY: Two views. HISTORY: Dyspnea and cough. Comparison chest x-ray: December 21, 2019. FINDINGS: Monitoring electrodes and oxygen delivery tubing are seen. The patient is status post cervical spine fusion plating. Lungs are a little hyperinflated. There is mild linear scarring in the left base. No infiltrate is seen. Pleural angles are sharp. Heart is not enlarged. IMPRESSION: Hyperinflation. Emphysematous changes in the upper lobes. COPD pattern. Linear fibrosis left base. No acute infiltrate. Electronically Signed by Byron Cunningham MD 12/30/2019 05:43 P
--- NOTE | 2019-12-30 14:14 | REP ---
CT PULMONARY ANGIOGRAM: With IV contrast. HISTORY: Shortness of breath, hypoxia. COMPARISON STUDIES: December 09, 2019. CONTRAST DOSE: 75 mL of Isovue [address] TECHNIQUE: Helical scanning is acquired and overlapping 1.5 mm and contiguous 3 mm axial images are reformatted. In addition, maximum intensity projection and multiplanar re-formation images are generated in sagittal and coronal imaging projections. CT PULMONARY ANGIOGRAPHIC FINDINGS: There is good opacification in the pulmonary arterial tree. There is no CT evidence of pulmonary embolism. The thoracic aorta enhances homogeneously and is normal in caliber. No aneurysm or dissection is seen. No pleural or pericardial effusion is appreciated. There is no evidence of hilar or mediastinal mass or adenopathy. Emphysematous changes are noted in the upper lobes. There is mucoid material filling several segmental bronchi and smaller bronchi in the left lower lobe consistent with retained endobronchial secretions. No definite infiltrate is seen. There is linear plate-like atelectasis in the left base. There is less prominent pattern of retained endobronchial secretions in the right lower lobe. No adrenal lesion is seen. The visualized upper abdominal structures are unremarkable. IMPRESSION: No CT evidence of pulmonary embolus. Retained endobronchial mucoid material in multiple bronchial segments in the left lower lobe and to some degree, in the right lower lobe consistent with bronchitis. Discoid atelectasis left base. Emphysematous changes in the upper lung zones. Electronically Signed by Byron Cunningham MD 12/30/2019 05:43 P
[2019-12-30] MEDS ORDERED: PRED10TA2 PO (15:11)
[2019-12-30] MEDS ORDERED: DOXY100T2 PO (15:11)
[2019-12-30] MEDS ORDERED: ALBUTEROL SULFATE 2.5 MG/0.5 ML INH NEB SOLN INH PRN (15:30)
[2019-12-30] MEDS ORDERED: ACETAMINOPHEN 500 MG TAB PO PRN (15:30)
[2019-12-30] MEDS ORDERED: oxyCODONE 5MG TAB PO PRN (15:30)
[2019-12-30] MEDS ORDERED: GLUCOSE 4 GM CHEW TABLET PO PRN (15:45)
[2019-12-30] MEDS ORDERED: DEXTROSE 50% 50 ML SYRINGE IV PRN (15:45)
[2019-12-30] MEDS ORDERED: GLUCAGON FOR INJ 1 MG VIAL (J1610) SC PRN (15:45)
--- NOTE | 2019-12-30 17:39 | HPE ---
DATE OF ADMISSION: 12/30/2019 PRIMARY CARE PROVIDER: JIMI Julian CHIEF COMPLAINT: Exacerbation of chronic obstructive pulmonary disease (COPD). HISTORY: Geetha Reza has severe COPD, on chronic supplemental oxygen, was just discharged 12/24/2019 in stable condition for exacerbation of COPD. She says she felt well for a few days and then "picked up a cold" with cough, congestion and sputum production. She has required several bronchodilator treatments in the emergency room, was still wheezy, so she was admitted. She has chronic respiratory failure, on supplemental oxygen, pCO2 is typically 60-70, followed by Dr. Montez at [facility]. Last visit there was 09/11/19. Oxygen (O2) saturation was 83% on room air. Most recent spirometry was from 03/19/19; FEV1 was low at 0.63, FEV1/FVC ratio was only 45% consistent with severe obstructive pattern, unchanged from prior. She has chronic opioid-induced constipation, sees [facility] gastroenterology, is on Trulance for that, has chronic pain syndrome for which she goes to the pain clinic. Other past history includes depression, hyperlipidemia, hypertensive heart disease, gastroesophageal reflux disease (GERD), stress urinary incontinence, tobacco abuse, essential tremor, migraine headache without aura, and bilateral carpal tunnel syndrome. Her last echocardiogram was during her 09/21/19 admission. Left atrium was normal size, ejection fraction normal at 60%, some diastolic dysfunction noted. It was a technically difficult study. IMMUNIZATIONS: She gets her flu shot yearly. SHE HAS HAD HER PNEUMOVAX TWICE ALREADY, 02/21/12 and 06/29/17 - SHE DOES NOT NEED ANOTHER PNEUMO 23 UNTIL SHE TURNS 66 YEARS OLD. HOME MEDICINES: - oxygen 3 liters nasal cannula - furosemide 40 mg daily - Incruse Ellipta one inhalation daily 62.5 mcg - Dexilant 60 mg daily - Advair 500/50 one inhalation twice a day - albuterol by nebulizer as needed - paroxetine 40 mg daily - olanzapine 5 mg daily - Lipitor 20 mg daily - Trulance 3 mg daily - gabapentin 600 mg three times a day - levothyroxine 25 mcg daily - Currently on prednisone 20 mg daily from a recent COPD exacerbation. - metformin 500 mg two tablets twice a day (1000 mg twice a day) - oxycodone 5 mg twice a day - bisoprolol 5 mg half a tablet (2.5 mg) daily - duloxetine 60 mg daily REVIEW OF SYSTEMS: No hemoptysis, unexplained weight loss, chest pain, palpitations, syncope, epistaxis, rectal bleeding or urinary bleeding. She has been around some sick contacts. SOCIAL HISTORY: Quit smoking a year ago. No significant alcohol intake. ALLERGIES: None known. SURGICAL HISTORY: Left knee replacement 07/05. Cervical spine fusion 1997. Tubal ligation. Colonoscopy 08/05. Upper endoscopy for removal of a piece of impacted steak from the esophagus 08/10. PHYSICAL EXAMINATION: Vital Signs: Per flow sheet. Blood pressure 125/59, pulse of 103, respiratory rate 22, 92% oxygen saturation on 3 liters. General Appearance: She looks well and speaks in full sentences. No dyspnea, retractions, or pursed lipped breathing. HEENT: Shows a cushingoid appearance. Pharynx benign. Neck: No masses. Lungs: Decreased breath sounds, a few wheezes at the bases. Fairly good air movement. Heart: Regular rhythm. No murmur. Abdomen: Soft, nontender, no masses. Trace peripheral edema. Normal strength in the arms and legs. Good distal pulses. LABORATORY: White count 12.7, hemoglobin 13.2, platelets 233. Sodium 139, potassium 4.4, BUN 26, creatinine 0.8, glucose 184. Last hemoglobin A1c from 11/14/19 was 8.8%. Troponins were negative. CT of the chest showed bronchitis. No infiltrates. No pulmonary embolism. Influenza screen negative. AB.37/78/69. IMPRESSION: 1. Exacerbation of chronic obstructive pulmonary disease. Patient will be admitted to progressive care unit (PCU) bed, IV steroid, nebulized bronchodilator, empiric antibiotic therapy with oral Levaquin 500 mg daily. Her CO2 retention is basically at its baseline, and she does not appear significantly decompensated. 2. Hypertensive heart disease. Continue bisoprolol. 3. Chronic lower extremity edema. Probably from underlying cor pulmonale. Continue her diuresis with a home dose of furosemide. 4. Opioid-induced constipation. She can take her home Trulance. 5. Chronic neck pain. Refill oxycodone. Continue Tylenol as needed. 6. Hypothyroidism. Continue her dose of levothyroxine. 7. Continue levothyroxine. 8. Carpal tunnel syndrome bilaterally. Continue current dose of Neurontin. 9. History of depression. Continue duloxetine and paroxetine. She does not show any evidence of serotonin excess on exam. 10. Diabetes. Sliding scale of insulin coverage. Hold metformin until her COPD exacerbation is improved.
[2019-12-30 18:28] VITALS: BP 163/94
[2019-12-30] MEDS: HumaLOG INSULIN (NovoLOG) PER UNIT SC SCH ×2 (18:47→22:03)
[2019-12-30] MEDS: GABAPENTIN 300 MG CAP PO SCH ×2 (18:47→22:04)
[2019-12-30] MEDS: IPRATROPIUM 0.5MG/ALBUTEROL 2.5MG INH SOL UD 3ML (DUONEB)(J7620) NEB SCH (19:49)
[2019-12-30 20:00] VITALS: BP 142/77
--- NOTE | 2019-12-30 20:40 | ECGEPIP ---
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
[2019-12-30] MEDS: ENOXAPARIN 40 MG/0.4 ML SYRINGE (J1650) SC SCH (22:03)
[2019-12-30] MEDS: ATORVASTATIN 20 MG TAB PO SCH (22:04)
[2019-12-30] MEDS: PARoxetine 20 MG TAB PO SCH (22:05)
[2019-12-30] MEDS: LevoFLOXacin 500 MG TABLET PO SCH (22:11)
[2019-12-31] VITALS (8 sets, daily range): BP systolic 116–169; BP diastolic 76–84; O2SAT 92–96
[2019-12-31] MEDS: methylPREDNISolone INJ 125 MG/2 ML VIAL (J2930) IV SCH ×2 (00:23→12:13)
[2019-12-31] MEDS: IPRATROPIUM 0.5MG/ALBUTEROL 2.5MG INH SOL UD 3ML (DUONEB)(J7620) NEB SCH ×4 (02:03→19:50)
[2019-12-31] MEDS: LEVOTHYROXINE 25MCG TABLET (0.025MG) PO SCH (05:05)
[2019-12-31] MEDS: LevoFLOXacin 500 MG TABLET PO SCH (05:05)
[2019-12-31 05:13] LABS: HEMOGLOBIN 12.6 g/dl (12.0-15.5); MEAN CORPUSCULAR HEMOGLOBIN 28.8 pg (27.0-33.0); MEAN CORPUSCULAR HGB CONC 30.7 g/dl (32.0-36.5); MEAN CORPUSCULAR VOLUME 93.8 fl (80.0-96.0); PLATELET COUNT, AUTOMATED 194 10^3/uL (150-450); RED BLOOD COUNT 4.37 10^6/uL (4.00-5.40); WHITE BLOOD COUNT 11.7 10^3/uL (4.0-10.0)
[2019-12-31 05:32] LABS: BLOOD UREA NITROGEN 19 MG/DL (7-18); CALCIUM LEVEL 9.3 MG/DL (8.5-10.1); CARBON DIOXIDE LEVEL 41 MEQ/L (21-32); CHLORIDE LEVEL 88 MEQ/L (98-107); GLOMERULAR FILTRATION RATE > 60.0 (>51); GLUCOSE, FASTING 308 MG/DL (70-100); POTASSIUM SERUM 3.9 MEQ/L (3.5-5.1); SODIUM LEVEL 134 MEQ/L (136-145)
--- NOTE | 2019-12-31 08:36 | IPNPDOC ---
Subjective Date Seen The patient was seen on 12/31/19. Subjective Chief Complaint/HPI Pt this morning states that she is feeling a little better, less SOB, still coughing, minimal sputum production. She slept well last night General: Denies: Fatigue Constitutional: Denies: Chills, Fever Pulmonary: Reports: Dyspnea, Cough Cardiovascular: Denies: Chest Pain, Palpitations Gastrointestinal: Reports: Constipation; Denies: Nausea, Vomiting, Abdominal Pain, Diarrhea Neurological: Denies: Weakness Psych: Reports: Mood Normal Objective Physical Examination General Exam: Positive: Alert, No Acute Distress ENT Exam: Positive: Mucous membr. moist/pink Neck Exam: Positive: Supple Chest Exam: Positive: Wheezing, Diminished; Negative: Clear to auscultation, Normal air movement Heart Exam: Negative: Rate Normal, Normal S1, Normal S2 Abdomen Exam: Positive: Normal bowel sounds, Soft; Negative: Tenderness Extremity Exam: Negative: Edema Neuro Exam: Positive: Normal Speech Psych Exam: Positive: Mental status NL, Mood NL Assessment /Plan Problems (1) COPD with acute exacerbation Status: Acute Response to Treatment: Stable Discussed With: Patient Problem Specific Plan: Monitor Clinically, Repeat Labs Problem Text: Pt this morning with improvements. Cont with Nebs scheduled and PRN. Cont with Levaquin 500 mg po daily. SM 60 mg IV q12h. Transfer to [place]. (2) Type 2 diabetes mellitus Status: Chronic Response to Treatment: Stable Problem Specific Plan: Monitor Clinically Problem Text: Cons carb diet, Metformin held. (3) Chronic pain syndrome Status: Chronic Response to Treatment: Stable Problem Specific Plan: Monitor Clinically (4) Hypothyroidism Status: Chronic Response to Treatment: Stable Problem Specific Plan: Monitor Clinically Plan/VTE VTE Prophylaxis Ordered?: Yes VS, I&O, 24H, [facility] Vital Signs/I&O Vital Signs Date Time Temp Pulse Resp B/P (MAP) Pulse Ox O2 Delivery O2 Flow Rate FiO2 12/31/19 08:00 97.8 124 18 141/83 (102) 94 Nasal Cannula 4.0 I&O- Last 24 Hours up to 6 AM 12/31/19 05:59 Intake Total 360 ml Output Total 0 ml Balance 360 ml Laboratory Data 24H LABS Laboratory Tests 2 12/30/19 12:38: Influenza Type A (RT-PCR) NEGATIVE, Influenza Type B (RT-PCR) NEGATIVE 12/30/19 12:41: Immature Granulocyte % (Auto) 3.9H, Neutrophils (%) (Auto) 80.6H, Lymphocytes (%) (Auto) 10.7L, Monocytes (%) (Auto) 3.5, Eosinophils (%) (Auto) 0.5, Basophils (%) (Auto) 0.8, Neutrophils # (Auto) 10.2H, Lymphocytes # (Auto) 1.4L, Monocytes # (Auto) 0.4, Eosinophils # (Auto) 0.1, Basophils # (Auto) 0.1, Nucleated Red Blood Cells % (auto) 0.0, Prothrombin Time 12.0, Prothromb Time International Ratio 0.91, Anion Gap 6L, Glomerular Filtration Rate > 60.0, Calcium Level 9.3, Total Bilirubin 0.5, Direct Bilirubin 0.1, Aspartate Amino Transf (AST/SGOT) 11, Alanine Aminotransferase (ALT/SGPT) 28, Alkaline Phosphatase 88, Total Creatine Kinase 17L, Creatine Kinase MB < 1.0, Creatine Kinase MB Relative Index 5.88H, Troponin I < 0.02, LX-Dfz-Y-Type Natriuretic Peptide 82, Total Protein 6.4, Albumin 2.9L, Albumin/Globulin Ratio 0.83L, Thyroid Stimulating Hormone (TSH) 0.635 12/30/19 12:45: Blood Gas Bicarbonate Standard 36.7H, Arterial Blood pH 7.375, Arterial Blood Partial Pressure CO2 72.8*H, Arterial Blood Partial Pressure O2 69.1L, Arterial Blood Total CO2 43.9H, Arterial Blood HCO3 41.6H, Arterial Blood Base Excess 13.0H, Arterial Blood Oxygen Saturation 93.5L 12/30/19 18:29: Bedside Glucose (Misc Panel) 278H 12/30/19 21:55: Bedside Glucose (Misc Panel) 319H 12/31/19 05:02: Nucleated Red Blood Cells % (auto) 0.0, Anion Gap 5L, Glomerular Filtration Rate > 60.0, Calcium Level 9.3 CBC/BMP Laboratory Tests 12/30/19 12:41 12/31/19 05:02 DELANEY JEAN PA-C Dec 31, 2019 08:36
[2019-12-31] MEDS: HumaLOG INSULIN (NovoLOG) PER UNIT SC SCH ×4 (09:18→20:09)
[2019-12-31] MEDS: DULoxetine 30 MG CAP (CYMBALTA) PO SCH (09:19)
[2019-12-31] MEDS: GABAPENTIN 300 MG CAP PO SCH ×3 (09:19→20:05)
[2019-12-31] MEDS: OLANZapine 5 MG TAB PO SCH (09:19)
[2019-12-31] MEDS: PLECANATIDE 3 MG PO SCH (09:20)
[2019-12-31] MEDS: BISOPROLOL FUM 2.5 MG PER 1/2TAB PO SCH (09:20)
[2019-12-31] MEDS: FUROSEMIDE 40 MG TAB PO SCH (09:21)
[2019-12-31] MEDS: ATORVASTATIN 20 MG TAB PO SCH (20:05)
[2019-12-31] MEDS: ENOXAPARIN 40 MG/0.4 ML SYRINGE (J1650) SC SCH (20:05)
[2019-12-31] MEDS: PARoxetine 20 MG TAB PO SCH (20:05)
[2020-01-01] MEDS: methylPREDNISolone INJ 125 MG/2 ML VIAL (J2930) IV SCH (01:11)
[2020-01-01] MEDS: IPRATROPIUM 0.5MG/ALBUTEROL 2.5MG INH SOL UD 3ML (DUONEB)(J7620) NEB SCH ×4 (01:29→18:20)
[2020-01-01] MEDS: LEVOTHYROXINE 25MCG TABLET (0.025MG) PO SCH (05:58)
[2020-01-01] MEDS: LevoFLOXacin 500 MG TABLET PO SCH (05:58)
[2020-01-01 06:00] VITALS: BP 122/84
[2020-01-01 06:21] LABS: HEMATOCRIT 42.6 % (36.0-47.0); HEMOGLOBIN 13.1 g/dl (12.0-15.5); MEAN CORPUSCULAR HEMOGLOBIN 28.5 pg (27.0-33.0); MEAN CORPUSCULAR HGB CONC 30.8 g/dl (32.0-36.5); MEAN CORPUSCULAR VOLUME 92.8 fl (80.0-96.0); PLATELET COUNT, AUTOMATED 196 10^3/uL (150-450); RED BLOOD COUNT 4.59 10^6/uL (4.00-5.40); WHITE BLOOD COUNT 11.2 10^3/uL (4.0-10.0)
[2020-01-01 06:47] LABS: BLOOD UREA NITROGEN 23 MG/DL (7-18); CALCIUM LEVEL 9.1 MG/DL (8.5-10.1); CARBON DIOXIDE LEVEL 43 MEQ/L (21-32); CHLORIDE LEVEL 91 MEQ/L (98-107); CREATININE FOR GFR 0.81 MG/DL (0.55-1.30); GLOMERULAR FILTRATION RATE > 60.0 (>51); GLUCOSE, FASTING 241 MG/DL (70-100); POTASSIUM SERUM 4.3 MEQ/L (3.5-5.1); SODIUM LEVEL 136 MEQ/L (136-145)
[2020-01-01] MEDS: BISOPROLOL FUM 2.5 MG PER 1/2TAB PO SCH (08:42)
[2020-01-01] MEDS: PLECANATIDE 3 MG PO SCH (08:42)
[2020-01-01] MEDS: GABAPENTIN 300 MG CAP PO SCH ×3 (08:42→20:42)
[2020-01-01] MEDS: OLANZapine 5 MG TAB PO SCH (08:42)
[2020-01-01] MEDS: FUROSEMIDE 40 MG TAB PO SCH (08:42)
[2020-01-01] MEDS: DULoxetine 30 MG CAP (CYMBALTA) PO SCH (08:43)
[2020-01-01] MEDS: HumaLOG INSULIN (NovoLOG) PER UNIT SC SCH ×4 (08:43→20:35)
--- NOTE | 2020-01-01 11:32 | IPNPDOC ---
Subjective Date Seen The patient was seen on 01/01/20. Subjective Chief Complaint/HPI COPD exacerbation Events since last encounter Feeling well. PT tejas completed this am. Feels at baseline. Currently on Levaqui n and Solumedrol. Using baseline oxygen: 3LNC General: Denies: ROS Unobtainable, Chills, Night Sweats, Fatigue, Malaise, Normal Appetite, Other Symptoms Pulmonary: Reports: Dyspnea (chronic), Cough (chronic) Objective Physical Examination General Exam: Positive: Alert, No Acute Distress ENT Exam: Positive: Mucous membr. moist/pink Neck Exam: Positive: Supple Chest Exam: Positive: Wheezing, Diminished; Negative: Clear to auscultation, Normal air movement Heart Exam: Negative: Rate Normal, Normal S1, Normal S2 Abdomen Exam: Positive: Normal bowel sounds, Soft; Negative: Tenderness Extremity Exam: Negative: Edema Neuro Exam: Positive: Normal Speech Psych Exam: Positive: Mental status NL, Mood NL Assessment /Plan Problems (1) COPD with acute exacerbation Status: Acute Response to Treatment: Stable Discussed With: Patient Problem Specific Plan: Monitor Clinically, Repeat Labs Problem Text: Pt this morning with improvements. Cont with Nebs scheduled and PRN. Cont with Levaquin 500 mg po daily. Prednisone 60 mg po bid. anticipate DC home in am. (2) Type 2 diabetes mellitus Status: Chronic Response to Treatment: Stable Problem Specific Plan: Monitor Clinically Problem Text: Cons carb diet, Metformin held. (3) Chronic pain syndrome Status: Chronic Response to Treatment: Stable Problem Specific Plan: Monitor Clinically (4) Hypothyroidism Status: Chronic Response to Treatment: Stable Problem Specific Plan: Monitor Clinically Plan/VTE VTE Prophylaxis Ordered?: Yes VS, I&O, 24H, [facility] Vital Signs/I&O Vital Signs Date Time Temp Pulse Resp B/P (MAP) Pulse Ox O2 Delivery O2 Flow Rate FiO2 01/01/20 08:42 122/84 01/01/20 06:00 97.5 111 22 92 Nasal Cannula 4.0 I&O- Last 24 Hours up to 6 AM 01/01/20 06:00 Intake Total 900 ml Output Total 1600 ml Balance -700 ml Laboratory Data 24H LABS Laboratory Tests 2 12/31/19 16:23: Bedside Glucose (Misc Panel) 216H 12/31/19 19:59: Bedside Glucose (Misc Panel) 467H 01/01/20 06:06: Nucleated Red Blood Cells % (auto) 0.0, Anion Gap 2L, Glomerular Filtration Rate > 60.0, Calcium Level 9.1 CBC/BMP Laboratory Tests 01/01/20 06:06 Franchesca Solorzano MANAGER COUNCIL Jan 01, 2020 11:32
[2020-01-01 14:00] VITALS: BP 123/84
[2020-01-01] MEDS: predniSONE 20 MG TAB PO SCH ×2 (15:02→20:43)
[2020-01-01 20:00] VITALS: BP 125/81
[2020-01-01] MEDS: PARoxetine 20 MG TAB PO SCH (20:43)
[2020-01-01] MEDS: ATORVASTATIN 20 MG TAB PO SCH (20:43)
[2020-01-01] MEDS: ENOXAPARIN 40 MG/0.4 ML SYRINGE (J1650) SC SCH (20:44)
[2020-01-01] MEDS ORDERED: HumaLOG INSULIN (NovoLOG) PER UNIT SC ONE (20:45)
[2020-01-01] MEDS ORDERED: LEVEMIR (INSULIN DETEMIR) 1 UNITS/0.01ML SC SCH (21:00)
[2020-01-01 22:00] VITALS: BP 125/81
[2020-01-02] MEDS: IPRATROPIUM 0.5MG/ALBUTEROL 2.5MG INH SOL UD 3ML (DUONEB)(J7620) NEB SCH ×3 (02:04→13:17)
[2020-01-02] MEDS: LevoFLOXacin 500 MG TABLET PO SCH (05:41)
[2020-01-02] MEDS: LEVOTHYROXINE 25MCG TABLET (0.025MG) PO SCH (05:41)
[2020-01-02 06:00] VITALS: BP 138/88
[2020-01-02 06:30] LABS: HEMATOCRIT 43.4 % (36.0-47.0); HEMOGLOBIN 13.2 g/dl (12.0-15.5); MEAN CORPUSCULAR HEMOGLOBIN 28.3 pg (27.0-33.0); MEAN CORPUSCULAR HGB CONC 30.4 g/dl (32.0-36.5); MEAN CORPUSCULAR VOLUME 92.9 fl (80.0-96.0); PLATELET COUNT, AUTOMATED 216 10^3/uL (150-450); RED BLOOD COUNT 4.67 10^6/uL (4.00-5.40); WHITE BLOOD COUNT 11.2 10^3/uL (4.0-10.0)
[2020-01-02 06:54] LABS: BLOOD UREA NITROGEN 20 MG/DL (7-18); CALCIUM LEVEL 9.6 MG/DL (8.5-10.1); CARBON DIOXIDE LEVEL 44 MEQ/L (21-32); CHLORIDE LEVEL 89 MEQ/L (98-107); GLOMERULAR FILTRATION RATE > 60.0 (>51); GLUCOSE, FASTING 275 MG/DL (70-100); SODIUM LEVEL 137 MEQ/L (136-145)
[2020-01-02] MEDS: HumaLOG INSULIN (NovoLOG) PER UNIT SC SCH ×2 (08:03→12:04)
[2020-01-02 08:04] VITALS: BP 138/88
[2020-01-02] MEDS: predniSONE 20 MG TAB PO SCH (08:04)
[2020-01-02] MEDS: GABAPENTIN 300 MG CAP PO SCH (08:04)
[2020-01-02] MEDS: FUROSEMIDE 40 MG TAB PO SCH (08:04)
[2020-01-02] MEDS: BISOPROLOL FUM 2.5 MG PER 1/2TAB PO SCH (08:04)
[2020-01-02] MEDS: DULoxetine 30 MG CAP (CYMBALTA) PO SCH (08:04)
[2020-01-02] MEDS: OLANZapine 5 MG TAB PO SCH (08:04)
[2020-01-02] MEDS: PLECANATIDE 3 MG PO SCH (08:14)
[2020-01-02] MEDS ORDERED: PRED20TA PO (09:34)
[2020-01-02] MEDS ORDERED: LEVA1TAB2 PO (09:34)
--- NOTE | 2020-01-02 15:37 | DSES ---
DATE OF ADMISSION: 12/30/2019 DATE OF DISCHARGE: 01/02/2020 PRIMARY CARE PHYSICIAN: Carolina Zapata HISTORY: This is a 59-year-old female patient who presented to [facility] with worsening cough and shortness of breath with a known history of severe chronic obstructive pulmonary disease (COPD), chronic respiratory failure, on chronic oxygen, following with Dr. Montez. She was admitted to the hospital for exacerbation of COPD. She was started on intravenous (IV) Solu-Medrol, nebulized bronchodilator, and empiric antibiotic therapy with oral fluoroquinolone, Levaquin. During her hospitalization she has remained medically stable. Her IV steroids have been tapered to oral. Her clinical status is improved as well as her respiratory status. She has been seen by physical therapy, who feel as though she is safe to return home. She feels as though she is ready. DISCHARGE DIAGNOSIS: 1. Acute on chronic respiratory failure. 2. Oxygen dependent. 3. Chronic obstructive pulmonary disease with exacerbation. 4. Diabetes mellitus, type 2. 5. Chronic diastolic congestive heart failure. 6. Morbid obesity. 7. Chronic pain syndrome. 8. Hypothyroidism. DISCHARGE MEDICATIONS: - prednisone 60 mg twice a day times three days, then 60 mg daily times three days, then 40 mg daily times three days, then 30 mg daily times three days, then 20 mg daily times three days, then 10 mg daily - Levaquin 500 mg daily times seven additional days - albuterol sulfate two puffs inhaled every 4 as needed for shortness of breath - albuterol sulfate inhaled every 4 hours and every 2 hours as needed for shortness of breath - ammonium lactate one dose topically daily - atorvastatin 20 mg daily - bisoprolol 2.5 mg daily - Dexilant 60 mg daily - duloxetine 60 mg daily - furosemide 40 mg daily - gabapentin 600 mg three times a day - levothyroxine 25 mcg daily - metformin 1000 mg twice a day - olanzapine 5 mg twice a day - oxycodone 5 mg by mouth twice a day as needed for pain - paroxetine 40 mg daily - Trulance 3 mg by mouth every morning - Advair 500/50 two puffs inhaled twice a day - Incruse Ellipta one puff inhaled daily DISCHARGE PLAN: Followup with Carolina Zapata in 10 days. ACTIVITY: As tolerated. DIET: No added salt, consistent-carbohydrate.
== END 2020-01-02 13:39 | disposition home health service (06) | DRG 191 ==
LOC: M ED 12:11 → M ED INP 15:25 → ENRESERV 16:14 → M PCU 18:06 → M MSPAV 12-31 14:00
PROVIDERS: ADMIT Family Medicine; ATTEND Family Medicine
DX: J44.1 Chronic obstructive pulmonary disease with (acute) exacerbation (principal); I50.32 Chronic diastolic (congestive) heart failure; J96.10 Chronic respiratory failure, unspecified whether with hypoxia or hypercapnia; Z99.81 Dependence on supplemental oxygen; E11.9 Type 2 diabetes mellitus without complications; E66.01 Morbid (severe) obesity due to excess calories; G89.29 Other chronic pain; E03.9 Hypothyroidism, unspecified; Z79.899 Other long term (current) drug therapy; F32.9 Major depressive disorder, single episode, unspecified; E78.5 Hyperlipidemia, unspecified; K21.9 Gastro-esophageal reflux disease without esophagitis; F17.200 Nicotine dependence, unspecified, uncomplicated; N39.3 Stress incontinence (female) (male); F11.90 Opioid use, unspecified, uncomplicated; Z96.652 Presence of left artificial knee joint; K59.03 Drug induced constipation; I11.0 Hypertensive heart disease with heart failure; G56.03 Carpal tunnel syndrome, bilateral upper limbs

== ENCOUNTER 2020-01-08 16:54 | Inpatient (IN) | payer MEDICARE, MEDICAID ==
[~2020-01-08] VITALS: Ht 167.6 cm; Wt 85.8 kg
[~2020-01-08 16:54] MED LIST changes: +DOXY100T2 PO; +LEVA1TAB2 PO
[2020-01-08 17:29] LABS: HEMATOCRIT 44.9 % (36.0-47.0); HEMOGLOBIN 13.8 g/dl (12.0-15.5); MEAN CORPUSCULAR HEMOGLOBIN 28.8 pg (27.0-33.0); MEAN CORPUSCULAR HGB CONC 30.7 g/dl (32.0-36.5); MEAN CORPUSCULAR VOLUME 93.7 fl (80.0-96.0); PLATELET COUNT, AUTOMATED 269 10^3/uL (150-450); RED BLOOD COUNT 4.79 10^6/uL (4.00-5.40); WHITE BLOOD COUNT 14.7 10^3/uL (4.0-10.0)
[2020-01-08 17:34] LABS: INR 0.91; PROTHROMBIN TIME 11.9 SECONDS (11.8-14.0)
--- NOTE | 2020-01-08 17:41 | REP ---
Portable chest x-ray: Single view. History: Chest pain. Comparison chest x-ray: December 30, 2019. Findings: EKG monitoring electrodes overlie the chest. There is linear fibrosis in the left base unchanged. Minimal linear fibrosis is seen in the right base. There are emphysematous changes in the upper lobes consistent with COPD. No acute infiltrate is seen. Heart size is normal. The patient is status post cervical spine fusion surgery. Impression: Bibasilar linear fibrosis. Bilateral upper lobe emphysematous change. No acute infiltrate. Electronically Signed by Byron Cunningham MD 01/08/2020 05:33 P
[2020-01-08 17:52] LABS: ATYPICAL LYMPH 6 % (0-5); LYMPHOCYTES 11 % (16-44); METAMYELOCYTES 1 % (0-0); MONOCYTES 1 % (0-5); MYELOCYTES 1 % (0-0); NEUTROPHILS 80 % (28-66)
[2020-01-08 17:53] LABS: HYPOCHROMASIA 1+; PLATELET ESTIMATE NORMAL (NORMAL)
[2020-01-08 17:56] LABS: ALT/SGPT 39 U/L (12-78); BILIRUBIN,DIRECT < 0.1 MG/DL (0.0-0.2); BILIRUBIN,TOTAL 0.3 MG/DL (0.2-1.0); BLOOD UREA NITROGEN 30 MG/DL (7-18); CALCIUM LEVEL 8.9 MG/DL (8.5-10.1); CARBON DIOXIDE LEVEL 35 MEQ/L (21-32); CHLORIDE LEVEL 93 MEQ/L (98-107); CK-MB VALUE MASS < 1.0 NG/ML (<3.6); CPK CREATINE PHOSPHOKINASE 53 U/L (26-192); CREATININE FOR GFR 0.97 MG/DL (0.55-1.30); GLOMERULAR FILTRATION RATE > 60.0 (>51); GLUCOSE, FASTING 321 MG/DL (70-100); LIPASE 161 U/L (73-393); MB/CK RELATIVE INDEX 1.89 (< OR =4); NT-PRO BNP 262 PG/ML (<125); POTASSIUM SERUM 4.3 MEQ/L (3.5-5.1); SODIUM LEVEL 136 MEQ/L (136-145); THYROID STIMULATING HORMONE 0.154 uIU/ML (0.358-3.740); TOTAL PROTEIN 6.1 GM/DL (6.4-8.2); TROPONIN I < 0.02 NG/ML (< 0.10)
[2020-01-08] MEDS ORDERED: ONDANSETRON 4MG/2ML VIAL (J2405) IV ONE (18:15)
[2020-01-08] MEDS: MORPHINE 4 MG/ML 1ML VIAL/SYRINGE (J2270) IV PRN (18:24)
[2020-01-08] MEDS ORDERED: ISOVUE-370 76% 100ML VIAL (Q9967) As Ordered ONE (19:00)
--- NOTE | 2020-01-08 19:29 | REPVR ---
PROCEDURE INFORMATION: Exam: CT Angiography Chest With Contrast Exam date and time: 01/08/2020 6:59 PM Age: 59 years old Clinical indication: Shortness of breath; Additional info: Cp/sob TECHNIQUE: Imaging protocol: Computed tomographic angiography of the chest with intravenous contrast. 3D rendering: MIP and/or 3D reconstructed images were created by the technologist. Radiation optimization: All CT scans at this facility use at least one of these dose optimization techniques: automated exposure control; mA and/or kV adjustment per patient size (includes targeted exams where dose is matched to clinical indication); or iterative reconstruction. Contrast material: ISOVUE 370; Contrast volume: 75 ml; Contrast route: IV; COMPARISON: CT ANGIO CHEST 12/30/2019 1:43 PM FINDINGS: Pulmonary arteries: Peripheral pulmonary artery evaluation limited by cardiac and respiratory motion artifact. Central pulmonary arteries show no intraluminal defect suggestive of clot. Aorta: No thoracic aortic aneurysm or dissection. Lungs: Pulmonary vascular/interstitial pattern does not suggest active pulmonary edema. Centrilobular emphysema is present with apical predominance. Areas of linear fibrosis are present in both lungs. No focal airspace process, concerning lung mass or ground-glass opacity. Improvement in lower lobe partial bronchial filling Pleural space: No pleural effusion or pneumothorax. Heart: No overt cardiac enlargement or abnormal volume of pericardial fluid. Lymph nodes: No enlarged mediastinal lymph nodes. Bones/joints: Multi-level, age-related thoracic degenerative disc disease is present. IMPRESSION: 1. No evidence of acute, central pulmonary embolus. Peripheral pulmonary arterial evaluation is limited by cardiac and respiratory motion artifact. 2. Improvement in lower lobe bronchitis changes since the recent prior CT from December 30, 2019 3. No other acute or concerning focal intrathoracic abnormality. 4. Centrilobular emphysema with similar pattern compared to the prior CT, as expected over the short interim Electronically signed by: Ronald Perez On 01/08/2020 19:28:52 PM
[2020-01-08] MEDS ORDERED: dexameTHASONE 20MG/5ML VIAL (J1100 PER 1MG) IV ONE (20:00)
[2020-01-08] MEDS ORDERED: ALBUTEROL 90 MCG/ACT 8GM HFA INHALER INH ONE (20:00)
[2020-01-08] MEDS: HumaLOG INSULIN (NovoLOG) PER UNIT SC SCH (21:00)
[2020-01-08] MEDS: ATORVASTATIN 20 MG TAB PO SCH (21:00)
[2020-01-08] MEDS: PARoxetine 20 MG TAB PO SCH (21:00)
[2020-01-08 23:49] LABS: CK-MB VALUE MASS 1.1 NG/ML (<3.6); CPK CREATINE PHOSPHOKINASE 49 U/L (26-192); MB/CK RELATIVE INDEX 2.24 (< OR =4); TROPONIN I < 0.02 NG/ML (< 0.10)
[2020-01-09] VITALS (7 sets, daily range): BP systolic 140–162; BP diastolic 80–88; O2SAT 89–94
[2020-01-09] MEDS ORDERED: METOPROLOL 5 MG/5 ML VIAL IV STA (00:07)
[2020-01-09] MEDS: MORPHINE 4 MG/ML 1ML VIAL/SYRINGE (J2270) IV PRN (00:19)
[2020-01-09] MEDS ORDERED: ALBUTEROL 90 MCG/ACT 8GM HFA INHALER INH ONE (00:30)
[2020-01-09 01:02] LABS: ABG BASE EXCESS 8.4 (-2.0-2.0); ABG HCO3 36.7 MEQ/L (22.0-26.0); ABG O2 SATURATION 96.6 % (95.0-99.0); ABG PARTIAL PRESSURE O2 94.3 mmHg (75.0-100.0); ABG STANDARD HCO3 32.2 MEQ/L (22.0-26.0); ABG TOTAL CO2 38.8 MEQ/L (22.0-29.0); ABG pH (ARTERIAL) 7.349 UNITS (7.350-7.450)
[2020-01-09 01:03] LABS: ABG PARTIAL PRESSURE CO2 68.2 mmHg (35.0-45.0)
[2020-01-09] MEDS ORDERED: PRED20TA PO (01:28)
[2020-01-09] MEDS ORDERED: ADVA230A INH (01:28)
[2020-01-09] MEDS ORDERED: ALBUTEROL 90 MCG/ACT 8GM HFA INHALER INH PRN (02:00)
[2020-01-09] MEDS ORDERED: GLUCAGON FOR INJ 1 MG VIAL (J1610) SC PRN (02:15)
[2020-01-09] MEDS ORDERED: DEXTROSE 50% 50 ML SYRINGE IV PRN (02:15)
[2020-01-09] MEDS ORDERED: GLUCOSE 4 GM CHEW TABLET PO PRN (02:15)
--- NOTE | 2020-01-09 02:26 | HPEPDOC ---
[facility] Medical History & Physical Date of Admission Jan 09, 2020 Date of Service: Jan 09, 2020 Attending Physician: LV TIERNEY MD History and Physical CHIEF COMPLAINT: Shortness of breath HISTORY OF PRESENT ILLNESS: 59-year-old female with past medical history of COPD, oxygen dependent, diabetes mellitus, paroxysmal atrial fibrillation, hypothyroidism, hypertension and chronic neck pain presents from home with worsening shortness of breath. She has had multiple hospitalizations over the [facility] couple of months for COPD exacerbation. She reports being compliant with her medication regimen, but develops shortness of breath/cough. Soon after being discharged from the hospital. She reports feeling marginally better after her previous discharge, but started having worsening shortness of breath and cough 3 days ago. She is chronically on oral steroids and reports taking prednisone 10 mg daily since her discharge one week ago. She denies taking prednisone tapering dose. In the ED was found to be severely hypoxemic, tachycardic, with intermittent A. fib with rapid ventricular response. She denies any additional symptoms, denies fever, sputum production, chest pain, palpitations, abdominal pain, diarrhea or constipation. 10 point review of system is negative except for above PAST MEDICAL HISTORY: 1. COPD. 2. Diabetes mellitus. 3. Paroxysmal atrial fibrillation. 4. Hypothyroidism. 5. Hypertension. 6. Chronic neck pain. 7. Hyperlipidemia PAST SURGICAL HISTORY: 1. Neck surgery. SOCIAL HISTORY: Previous smoker, quit 2 years ago, smoked 1 pack per day for over 30 years. As always Denies drug use FAMILY HISTORY: Negative for heart disease or cancer ALLERGIES: Please see below. HOME MEDICATIONS: Please see below. PHYSICAL EXAMINATION: VITAL SIGNS: Please see below. GENERAL: No distress HEENT: Normocephalic, atraumatic, moist mucous membranes NECK: Supple CARDIOVASCULAR EXAMINATION: Irregular, tachycardic RESPIRATORY EXAMINATION: Diminished, poor air movement, wheezing appreciated ABDOMINAL EXAMINATION: Soft, nontender, nondistended, positive bowel sounds EXTREMITIES: Range of motion intact SKIN: No rash NEUROLOGICAL EXAMINATION: Alert and oriented 3, no focal deficits PSYCHIATRIC EXAMINATION: Calm and cooperative LABORATORY DATA: See below. IMAGING: CT showing significant emphysema, no infiltrate appreciated MICROBIOLOGY: Please see below. ASSESSMENT: 59-year-old female with multiple medical comorbidities being admitted for COPD exacerbation and hypoxemic and hypercapnic respiratory failure. . PLAN: 1. COPD exacerbation. Multiple hospitalizations for the same reason over the past couple months, was not on a steroid taper reportedly, IV steroids, doxycycline, supplemental oxygen as needed to maintain O2 sats between 80-92%, albuterol as needed, continue Advair 2. Hypoxemic and hypercapnic respiratory failure. Secondary to above, continue supplemental oxygen. 3. Diabetes mellitus. Sliding scale insulin with meals and at bedtime. 4. Hypothyroidism. Continue levothyroxine 5. Chronic neck pain. Continue oxycodone as needed. 6. Atrial fibrillation Not on antiplatelet medication, continue bisoprolol. DVT prophylaxis: Lovenox. GI prophylaxis: PPI Vital Signs Vital Signs Date Time Temp Pulse Resp B/P (MAP) Pulse Ox O2 Delivery O2 Flow Rate FiO2 01/09/20 01:21 100 162/73 (102) 01/09/20 01:10 98.3 20 91 6.0 01/09/20 00:38 Nasal Cannula 01/09/20 00:08 85 Laboratory Data Labs 24H Laboratory Tests 2 01/08/20 17:15: Immature Granulocyte % (Auto) , Neutrophils (%) (Auto) , Nucleated Red Blood Ce lls % (auto) 0.1H, Neutrophils 80H, Lymphocytes (Manual) 11L, Monocytes (Manual) 1, Metamyelocytes 1H, Myelocytes 1H, Atypical Lymphocytes 6H, Hypochromasia 1+, Platelet Estimate NORMAL, Prothrombin Time 11.9, Prothromb Time International Ratio 0.91, Anion Gap 8, Glomerular Filtration Rate > 60.0, Calcium Level 8.9, Total Bilirubin 0.3, Direct Bilirubin < 0.1, Aspartate Amino Transf (AST/SGOT) 16, Alanine Aminotransferase (ALT/SGPT) 39, Alkaline Phosphatase 77, Total Creatine Kinase 53, Creatine Kinase MB < 1.0, Creatine Kinase MB Relative Index 1.89, Troponin I < 0.02, QU-[id number]-Type Natriuretic Peptide 262H, Total Protein 6.1L, Albumin 3.0L, Albumin/Globulin Ratio 0.97L, Lipase 161, Thyroid Stimulating Hormone (TSH) 0.154L 01/08/20 23:14: Total Creatine Kinase 49, Creatine Kinase MB 1.1, Creatine Kinase MB Relative Index 2.24, Troponin I < 0.02 01/09/20 00:56: Blood Gas Bicarbonate Standard 32.2H, Arterial Blood pH 7.349L, Arterial Blood Partial Pressure CO2 68.2*H, Arterial Blood Partial Pressure O2 94.3, Arterial Blood Total CO2 38.8H, Arterial Blood HCO3 36.7H, Arterial Blood Base Excess 8.4H, Arterial Blood Oxygen Saturation 96.6 CBC/BMP Laboratory Tests 01/08/20 17:15 Home Medications Scheduled Ammonium Lactate (Ammonium Lactate) 12% Cream..g., 1 DOSE TOP DAILY APPLY TO FEET Atorvastatin Calcium (Atorvastatin Calcium) 20 Mg Tab, 20 MG PO QHS Bisoprolol Fumarate (Bisoprolol Fumarate) 5 Mg Tablet, 2.5 MG PO DAILY Dexlansoprazole (Dexilant) 60 Mg Cap, 60 MG PO DAILY Duloxetine Hcl (Duloxetine HCl) 60 Mg Capsule.dr, 60 MG PO DAILY Fluticasone Propion/Salmeterol (Advair Hfa 230-21 Mcg Inhaler) 12 Gm Hfa.aer.ad, 2 PUFF INH BID Furosemide (Furosemide) 40 Mg Tablet, 40 MG PO DAILY Gabapentin (Gabapentin) 600 Mg Tab, 600 MG PO TID Levothyroxine Sodium (Levothyroxine Sodium) 25 Mcg Tablet, 25 MCG PO DAILY Metformin HCl (Metformin HCl) 500 Mg Tablet, 1,000 MG PO BID Olanzapine (Olanzapine) 5 Mg Tablet, 5 MG PO DAILY Paroxetine HCl (Paroxetine HCl) 40 Mg Tab, 40 MG PO QHS Plecanatide (Trulance) 3 Mg Tablet, 3 MG PO DAILY Prednisone (Prednisone) 20 Mg Tablet, 20 MG PO TAPER 60MG BID FOR 3 DAYS, 60MG DAILY FOR 3 DAYS, 40MG DAILY FOR 3 DAYS, 30MG DAILY FOR 3 DAYS, 20MG FOR 3 DAYS, THEN 10MG DAILY TIL END OF SCRIPT Umeclidinium Edroy (Incruse Ellipta) 62.5 Mcg/Inh Inh, 1 PUFF INH DAILY TAKES AT NOON Scheduled PRN Albuterol Sulfate (Ventolin Hfa) 18 Gm Hfa.aer.ad, 2 PUFF INH Q4H PRN for SHORTNESS OF BREATH Oxycodone HCl (Oxycodone HCl) 5 Mg Tab, 5 MG PO BID PRN for PAIN Allergies Coded Allergies: No Known Allergies (Verified Allergy, Unknown, 12/09/19) A-FIB/CHADSVASC A-FIB History Current/History of A-Fib/PAF?: Yes Current PO Anticoag Therapy: No Treatment Reason Anticoagulant not given: Other Other reason anticoagulant not: patient unaware LV TIERNEY MD Jan 09, 2020 02:26
--- NOTE | 2020-01-09 04:38 | ECGEPIP ---
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
[2020-01-09] MEDS: methylPREDNISolone INJ 40 MG/1 ML VIAL (J2920) IV SCH ×3 (05:49→20:13)
[2020-01-09] MEDS: LEVOTHYROXINE 25MCG TABLET (0.025MG) PO SCH (05:49)
[2020-01-09] MEDS: ENOXAPARIN 40MG/0.4ML SYRINGE (J1650 PER 10MG) SC SCH (05:49)
--- NOTE | 2020-01-09 07:26 | ECGEPIP ---
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
[2020-01-09] MEDS: ADVAIR HFA 230/21MCG INHALER INH SCH ×2 (07:42→19:48)
[2020-01-09] MEDS: OLANZapine 5 MG TAB PO SCH (08:15)
[2020-01-09] MEDS: DULoxetine 30 MG CAP (CYMBALTA) PO SCH (08:15)
[2020-01-09] MEDS: DOXYCYCLINE HYCLATE 100MG TABLET PO SCH ×2 (08:15→20:13)
[2020-01-09] MEDS: FUROSEMIDE 40 MG TAB PO SCH (08:15)
[2020-01-09] MEDS: PANTOPRAZOLE 40MG TAB (PROTONIX) PO SCH (08:15)
[2020-01-09] MEDS: GABAPENTIN 300 MG CAP PO SCH ×3 (08:15→20:13)
[2020-01-09] MEDS: LACTIC ACID 12% LOTION 225 GM BTL TOP SCH (08:16)
[2020-01-09] MEDS: HumaLOG INSULIN (NovoLOG) PER UNIT SC SCH ×4 (08:23→20:13)
[2020-01-09] MEDS ORDERED: BISOPROLOL FUM 2.5 MG PER 1/2TAB PO SCH (09:00)
--- NOTE | 2020-01-09 18:24 | IPNPDOC ---
Subjective Date Seen The patient was seen on 01/09/20. Subjective Chief Complaint/HPI no new co Constitutional: Denies: Chills, Fever Eyes: Denies: Pain ENT: Denies: Head Aches Skin: Denies: Rash Pulmonary: Reports: Dyspnea; Denies: Cough Cardiovascular: Denies: Chest Pain Objective Physical Examination General Exam: Negative: Alert Neck Exam: Negative: JVD Chest Exam: Positive: Diminished; Negative: Wheezing Abdomen Exam: Positive: Normal bowel sounds Extremity Exam: Negative: Edema Assessment /Plan Problems (1) Atrial fibrillation with RVR Status: Acute Problem Text: 01/09/20 [place] [facility] [place] exacerbation RC on biso 2.5 (2) COPD (chronic obstructive pulmonary disease) Status: Chronic Problem Text: D1 doxy po 01/08 improved on MP 40 TID 01/07 -RP 01/07 CTA chest: 1. No evidence of acute, central pulmonary embolus. Peripheral pulmonary arterial evaluation is limited by cardiac and respiratory motion artifact. 2. Improvement in lower lobe bronchitis changes since the recent prior CT from December 30, 2019 3. No other acute or concerning focal intrathoracic abnormality. 4. Centrilobular emphysema with similar pattern compared to the prior CT, as expected over the short interim (3) Physical deconditioning Status: Chronic (4) Type 2 diabetes mellitus Status: Chronic Response to Treatment: Progressing (5) Hypothyroidism Status: Chronic Problem Text: on HD LT4 25 (6) Diastolic congestive heart failure Status: Chronic Response to Treatment: Stable Problem Text: Euvolemic on HD fur 40 08/2019 [facility] 1. Technically limited study due to poor acoustic window. 2. Normal global left ventricular systolic function. There are some features of grade 1 left ventricular diastolic dysfunction manifested by abnormal relaxation. 3. No significant valvular heart disease detected. 4. Trace pericardial effusion, no evidence of cardiac tamponade. 5. Please refer to above for more details. DD: PRIYANKA ASIF MD 09/21/19 1248 Plan/VTE VTE Prophylaxis Ordered?: Yes VS, I&O, 24H, Fishbone Vital Signs/I&O Vital Signs Date Time Temp Pulse Resp B/P (MAP) Pulse Ox O2 Delivery O2 Flow Rate FiO2 01/09/20 16:00 96.1 94 17 152/86 (108) 97 Nasal Cannula 6.0 01/09/20 00:08 85 I&O- Last 24 Hours up to 6 AM 01/09/20 06:00 Intake Total 60 ml Output Total 0 ml Balance 60 ml Laboratory Data 24H LABS Laboratory Tests 2 01/08/20 23:14: Total Creatine Kinase 49, Creatine Kinase MB 1.1, Creatine Kinase MB Relative Index 2.24, Troponin I < 0.02, Procalcitonin 0.03 01/09/20 00:56: Blood Gas Bicarbonate Standard 32.2H, Arterial Blood pH 7.349L, Arterial Blood Partial Pressure CO2 68.2*H, Arterial Blood Partial Pressure O2 94.3, Arterial Blood Total CO2 38.8H, Arterial Blood HCO3 36.7H, Arterial Blood Base Excess 8.4H, Arterial Blood Oxygen Saturation 96.6 01/09/20 08:13: Bedside Glucose (Misc Panel) 376H 01/09/20 11:45: Bedside Glucose (Misc Panel) 275H 01/09/20 16:51: Bedside Glucose (Misc Panel) 376H Microbiology Microbiology 01/09/20 Respiratory Virus Panel (PCR) ([facility]) - Final, Complete Basim Meng M.D. Jan 09, 2020 18:24
[2020-01-09 19:05] LABS: HEMATOCRIT 41.8 % (36.0-47.0); HEMOGLOBIN 13.1 g/dl (12.0-15.5); MEAN CORPUSCULAR HEMOGLOBIN 29.4 pg (27.0-33.0); MEAN CORPUSCULAR HGB CONC 31.3 g/dl (32.0-36.5); MEAN CORPUSCULAR VOLUME 93.9 fl (80.0-96.0); PLATELET COUNT, AUTOMATED 231 10^3/uL (150-450); RED BLOOD COUNT 4.45 10^6/uL (4.00-5.40)
[2020-01-09 19:35] LABS: ALT/SGPT 37 U/L (12-78); BILIRUBIN,TOTAL 0.4 MG/DL (0.2-1.0); BLOOD UREA NITROGEN 29 MG/DL (7-18); CALCIUM LEVEL 8.9 MG/DL (8.5-10.1); CARBON DIOXIDE LEVEL 41 MEQ/L (21-32); CHLORIDE LEVEL 88 MEQ/L (98-107); CREATININE FOR GFR 0.91 MG/DL (0.55-1.30); FREE T4 0.87 NG/DL (0.76-1.46); GLOMERULAR FILTRATION RATE > 60.0 (>51); GLUCOSE, FASTING 388 MG/DL (70-100); NT-PRO BNP 130 PG/ML (<125); POTASSIUM SERUM 4.3 MEQ/L (3.5-5.1); SODIUM LEVEL 134 MEQ/L (136-145)
[2020-01-09] MEDS: ATORVASTATIN 20 MG TAB PO SCH (20:13)
[2020-01-09] MEDS: PARoxetine 20 MG TAB PO SCH (20:13)
[2020-01-09] MEDS: oxyCODONE 5MG TAB PO PRN (20:14)
[2020-01-09] MEDS ORDERED: BISOPROLOL FUM 2.5 MG PER 1/2TAB PO ONE (23:15)
[2020-01-10] VITALS (20 sets, daily range): BP systolic 136–160; BP diastolic 78–96; O2SAT 87–97
[2020-01-10] MEDS ORDERED: BISOPROLOL FUM 2.5 MG PER 1/2TAB PO ONE (05:15)
[2020-01-10] MEDS: ENOXAPARIN 40MG/0.4ML SYRINGE (J1650 PER 10MG) SC SCH (05:35)
[2020-01-10] MEDS: LEVOTHYROXINE 25MCG TABLET (0.025MG) PO SCH (05:35)
[2020-01-10] MEDS: methylPREDNISolone INJ 40 MG/1 ML VIAL (J2920) IV SCH ×2 (05:36→12:52)
[2020-01-10 05:42] LABS: HEMOGLOBIN 12.9 g/dl (12.0-15.5); MEAN CORPUSCULAR HEMOGLOBIN 29.5 pg (27.0-33.0); MEAN CORPUSCULAR HGB CONC 31.5 g/dl (32.0-36.5); MEAN CORPUSCULAR VOLUME 93.6 fl (80.0-96.0); PLATELET COUNT, AUTOMATED 219 10^3/uL (150-450); RED BLOOD COUNT 4.38 10^6/uL (4.00-5.40); WHITE BLOOD COUNT 12.6 10^3/uL (4.0-10.0)
[2020-01-10 05:51] LABS: HEMOGLOBIN A1c 9.8 %
[2020-01-10 05:55] LABS: ALBUMIN 2.9 GM/DL (3.2-5.2); ALT/SGPT 34 U/L (12-78); BILIRUBIN,TOTAL 0.6 MG/DL (0.2-1.0); BLOOD UREA NITROGEN 32 MG/DL (7-18); CARBON DIOXIDE LEVEL 41 MEQ/L (21-32); CHLORIDE LEVEL 89 MEQ/L (98-107); CREATININE FOR GFR 0.75 MG/DL (0.55-1.30); GLOMERULAR FILTRATION RATE > 60.0 (>51); GLUCOSE, FASTING 356 MG/DL (70-100); POTASSIUM SERUM 4.2 MEQ/L (3.5-5.1); SODIUM LEVEL 132 MEQ/L (136-145); TOTAL PROTEIN 6.1 GM/DL (6.4-8.2)
[2020-01-10] MEDS: HumaLOG INSULIN (NovoLOG) PER UNIT SC SCH ×4 (07:45→20:30)
[2020-01-10] MEDS: ADVAIR HFA 230/21MCG INHALER INH SCH ×2 (08:03→20:16)
[2020-01-10] MEDS: DULoxetine 30 MG CAP (CYMBALTA) PO SCH (08:47)
[2020-01-10] MEDS: DOXYCYCLINE HYCLATE 100MG TABLET PO SCH ×2 (08:47→20:29)
[2020-01-10] MEDS: OLANZapine 5 MG TAB PO SCH (08:47)
[2020-01-10] MEDS: PANTOPRAZOLE 40MG TAB (PROTONIX) PO SCH (08:47)
[2020-01-10] MEDS: GABAPENTIN 300 MG CAP PO SCH ×3 (08:47→20:29)
[2020-01-10] MEDS: FUROSEMIDE 40 MG TAB PO SCH (08:47)
[2020-01-10] MEDS: LACTIC ACID 12% LOTION 225 GM BTL TOP SCH (08:48)
[2020-01-10] MEDS: oxyCODONE 5MG TAB PO PRN ×2 (08:52→20:30)
--- NOTE | 2020-01-10 11:54 | IPNPDOC ---
Subjective Date Seen The patient was seen on 01/10/20. Subjective Chief Complaint/HPI improved ANGEL Constitutional: Denies: Chills, Fever ENT: Denies: Head Aches Skin: Denies: Rash Pulmonary: Reports: Dyspnea; Denies: Cough Cardiovascular: Denies: Chest Pain, Palpitations Gastrointestinal: Denies: Nausea, Vomiting Objective Physical Examination General Exam: Negative: Alert Neck Exam: Negative: JVD Chest Exam: Positive: Diminished; Negative: Wheezing Abdomen Exam: Positive: Normal bowel sounds Extremity Exam: Negative: Edema Assessment /Plan Problems (1) COPD (chronic obstructive pulmonary disease) Status: Chronic Problem Text: D2 doxy po 01/09 decreased to 40 QD 01/08 improved on MP 40 TID 01/07 -RP 01/07 CTA chest: 1. No evidence of acute, central pulmonary embolus. Peripheral pulmonary arterial evaluation is limited by cardiac and respiratory motion artifact. 2. Improvement in lower lobe bronchitis changes since the recent prior CT from December 30, 2019 3. No other acute or concerning focal intrathoracic abnormality. 4. Centrilobular emphysema with similar pattern compared to the prior CT, as expected over the short interim (2) Physical deconditioning Status: Chronic Problem Text: 01/08 NS to dc home (3) Atrial fibrillation with RVR Status: Acute Problem Text: RC on biso 2.5 BID (new) 01/09 + AC apix 5 BID, repeat TTE (4) Type 2 diabetes mellitus Status: Chronic Response to Treatment: Progressing Problem Text: HD met 1000 BID 01/10/20 A1C 9.8! c AC BG high 300s (reports AC home BGs mid 300s); therefore, + NCS c glar 10, SSLI AC QHS, insulin teaching to start home basal insulin (5) Hypothyroidism Status: Chronic Problem Text: 01/08 0.07/0.9 on HD LT4 25 (doubt actually needed, therefore, stopped; recheck in 6W as outpx) (6) Diastolic congestive heart failure Status: Chronic Response to Treatment: Stable Problem Text: Euvolemic on HD fur 40 01/07 T-I <0.02, BNP 130 08/2019 [facility] 1. Technically limited study due to poor acoustic window. 2. Normal global left ventricular systolic function. There are some features of grade 1 left ventricular diastolic dysfunction manifested by abnormal relaxation. 3. No significant valvular heart disease detected. 4. Trace pericardial effusion, no evidence of cardiac tamponade. 5. Please refer to above for more details. DD: PRIYANKA ASIF MD 09/21/19 1248 Plan/VTE VTE Prophylaxis Ordered?: Yes VS, I&O, 24H, Fishbone Vital Signs/I&O Vital Signs Date Time Temp Pulse Resp B/P (MAP) Pulse Ox O2 Delivery O2 Flow Rate FiO2 01/10/20 09:22 18 01/10/20 08:00 96.9 110 146/86 (106) 96 Nasal Cannula 3.0 01/09/20 00:08 85 I&O- Last 24 Hours up to 6 AM 01/10/20 06:00 Intake Total 1700 ml Output Total 1400 ml Balance 300 ml Laboratory Data 24H LABS Laboratory Tests 2 01/09/20 11:45: Bedside Glucose (Misc Panel) 275H 01/09/20 16:51: Bedside Glucose (Misc Panel) 376H 01/09/20 18:36: Nucleated Red Blood Cells % (auto) 0.2H, Anion Gap 5L, Glomerular Filtration Rate > 60.0, Calcium Level 8.9, Magnesium Level 2.0, Total Bilirubin 0.4, Aspartate Amino Transf (AST/SGOT) 13, Alanine Aminotransferase (ALT/SGPT) 37, Alkaline Phosphatase 72, KD-Yge-R-Type Natriuretic Peptide 130H, Total Protein 6.0L, Albumin 3.0L, Albumin/Globulin Ratio 1.00, Thyroid Stimulating Hormone (TSH) 0.070L, Free Thyroxine 0.87 01/09/20 20:02: Bedside Glucose (Misc Panel) 421H 01/10/20 05:15: Nucleated Red Blood Cells % (auto) 0.2H, Anion Gap 2L, Glomerular Filtration Rate > 60.0, Estimated Mean Plasma Glucose 235H, Hemoglobin A1c 9.8, Calcium Level 9.0, Magnesium Level 2.0, Total Bilirubin 0.6, Aspartate Amino Transf (AST/SGOT) 12, Alanine Aminotransferase (ALT/SGPT) 34, Alkaline Phosphatase 71, Total Protein 6.1L, Albumin 2.9L, Albumin/Globulin Ratio 0.91L CBC/BMP Laboratory Tests 01/09/20 18:36 01/10/20 05:15 Microbiology Microbiology 01/09/20 Respiratory Virus Panel (PCR) ([facility]) - Final, Complete Basim Meng M.D. Jan 10, 2020 11:54
[2020-01-10] MEDS: BISOPROLOL FUM 2.5 MG PER 1/2TAB PO SCH (19:00)
[2020-01-10] MEDS: ATORVASTATIN 20 MG TAB PO SCH (20:29)
[2020-01-10] MEDS: PARoxetine 20 MG TAB PO SCH (20:29)
[2020-01-10] MEDS ORDERED: LEVEMIR (INSULIN DETEMIR) 1 UNITS/0.01ML SC SCH (21:00)
[2020-01-11] VITALS (10 sets, daily range): BP systolic 137–159; BP diastolic 71–93; O2SAT 89–95
[2020-01-11 05:39] LABS: HEMATOCRIT 41.6 % (36.0-47.0); MEAN CORPUSCULAR HEMOGLOBIN 29.2 pg (27.0-33.0); MEAN CORPUSCULAR HGB CONC 31.3 g/dl (32.0-36.5); MEAN CORPUSCULAR VOLUME 93.5 fl (80.0-96.0); PLATELET COUNT, AUTOMATED 198 10^3/uL (150-450); RED BLOOD COUNT 4.45 10^6/uL (4.00-5.40); WHITE BLOOD COUNT 12.8 10^3/uL (4.0-10.0)
[2020-01-11] MEDS: ENOXAPARIN 40MG/0.4ML SYRINGE (J1650 PER 10MG) SC SCH (05:51)
[2020-01-11 05:56] LABS: ATYPICAL LYMPH 1 % (0-5); LYMPHOCYTES 18 % (16-44); METAMYELOCYTES 1 % (0-0); MONOCYTES 3 % (0-5); MYELOCYTES 1 % (0-0); NEUTROPHILS 75 % (28-66); PLATELET ESTIMATE NORMAL (NORMAL)
[2020-01-11 05:57] LABS: ANISOCYTOSIS 1+; POLYCHROMASIA 1+
[2020-01-11 06:13] LABS: ALBUMIN 2.9 GM/DL (3.2-5.2); ALT/SGPT 35 U/L (12-78); BILIRUBIN,TOTAL 0.6 MG/DL (0.2-1.0); BLOOD UREA NITROGEN 26 MG/DL (7-18); CALCIUM LEVEL 8.7 MG/DL (8.5-10.1); CARBON DIOXIDE LEVEL 41 MEQ/L (21-32); CHLORIDE LEVEL 92 MEQ/L (98-107); GLOMERULAR FILTRATION RATE > 60.0 (>51); GLUCOSE, FASTING 203 MG/DL (70-100); POTASSIUM SERUM 3.5 MEQ/L (3.5-5.1); SODIUM LEVEL 135 MEQ/L (136-145)
[2020-01-11] MEDS: ADVAIR HFA 230/21MCG INHALER INH SCH ×2 (07:57→18:35)
[2020-01-11] MEDS: methylPREDNISolone INJ 40 MG/1 ML VIAL (J2920) IV SCH (08:56)
[2020-01-11] MEDS: LACTIC ACID 12% LOTION 225 GM BTL TOP SCH (08:56)
[2020-01-11] MEDS: HumaLOG INSULIN (NovoLOG) PER UNIT SC SCH ×4 (08:57→21:00)
[2020-01-11] MEDS: DOXYCYCLINE HYCLATE 100MG TABLET PO SCH ×2 (08:58→21:48)
[2020-01-11] MEDS: FUROSEMIDE 40 MG TAB PO SCH (08:58)
[2020-01-11] MEDS: PANTOPRAZOLE 40MG TAB (PROTONIX) PO SCH (08:58)
[2020-01-11] MEDS: OLANZapine 5 MG TAB PO SCH (08:58)
[2020-01-11] MEDS: BISOPROLOL FUM 2.5 MG PER 1/2TAB PO SCH ×2 (08:58→21:47)
[2020-01-11] MEDS: DULoxetine 30 MG CAP (CYMBALTA) PO SCH (08:58)
[2020-01-11] MEDS: GABAPENTIN 300 MG CAP PO SCH ×3 (08:59→21:47)
--- NOTE | 2020-01-11 13:23 | IPNPDOC ---
Subjective Date Seen The patient was seen on 01/11/20. Subjective Chief Complaint/HPI improved ANGEL Constitutional: Denies: Chills, Fever ENT: Denies: Head Aches Pulmonary: Denies: Dyspnea, Cough Cardiovascular: Denies: Chest Pain, Palpitations Gastrointestinal: Denies: Nausea, Vomiting Objective Physical Examination General Exam: Negative: Alert Neck Exam: Negative: JVD Chest Exam: Positive: Diminished; Negative: Wheezing Abdomen Exam: Positive: Normal bowel sounds Extremity Exam: Negative: Edema Assessment /Plan Problems (1) COPD (chronic obstructive pulmonary disease) Status: Chronic Problem Text: D3 doxy po HD 02 3L cont 01/10 changed to pred 20 BID 01/09 decreased to 40 QD 01/08 improved on MP 40 TID 01/07 -RP 01/07 CTA chest: 1. No evidence of acute, central pulmonary embolus. Peripheral pulmonary arterial evaluation is limited by cardiac and respiratory motion artifact. 2. Improvement in lower lobe bronchitis changes since the recent prior CT from December 30, 2019 3. No other acute or concerning focal intrathoracic abnormality. 4. Centrilobular emphysema with similar pattern compared to the prior CT, as expected over the short interim (2) Physical deconditioning Status: Chronic Problem Text: 01/09 NS to dc home (3) Atrial fibrillation with RVR Status: Acute Problem Text: RC on biso 2.5 BID (new) 01/09 + AC apix 5 BID, repeat TTE (4) Type 2 diabetes mellitus Status: Chronic Response to Treatment: Progressing Problem Text: HD met 1000 BID 01/10 AC br 335!; therefore, det to 20 and readd HD met 01/10/20 A1C 9.8! c AC BG high 300s (reports AC home BGs mid 300s); therefore, + NCS c det 10, SSLI AC QHS, insulin teaching to start home basal insulin (5) Hypothyroidism Status: Chronic Problem Text: 01/08 0.07/0.9 on HD LT4 25 (doubt actually needed, therefore, stopped; recheck in 6W as outpx) (6) Diastolic congestive heart failure Status: Chronic Response to Treatment: Stable Problem Text: Euvolemic on HD fur 40 01/07 T-I <0.02, BNP 130 08/2019 [facility] 1. Technically limited study due to poor acoustic window. 2. Normal global left ventricular systolic function. There are some features of grade 1 left ventricular diastolic dysfunction manifested by abnormal relaxation. 3. No significant valvular heart disease detected. 4. Trace pericardial effusion, no evidence of cardiac tamponade. 5. Please refer to above for more details. DD: PRIYANKA ASIF MD 09/21/19 1248 Plan/VTE VTE Prophylaxis Ordered?: Yes VS, I&O, 24H, Fishbone Vital Signs/I&O Vital Signs Date Time Temp Pulse Resp B/P (MAP) Pulse Ox O2 Delivery O2 Flow Rate FiO2 01/11/20 12:00 97.6 114 18 159/76 (103) 90 Nasal Cannula 3.0 01/09/20 00:08 85 I&O- Last 24 Hours up to 6 AM 01/11/20 06:00 Intake Total 840 ml Output Total 2075 ml Balance -1235 ml Laboratory Data 24H LABS Laboratory Tests 2 01/10/20 16:29: Bedside Glucose (Misc Panel) 450H 01/10/20 20:11: Bedside Glucose (Misc Panel) 365H 01/11/20 05:05: Immature Granulocyte % (Auto) , Neutrophils (%) (Auto) , Nucleated Red Blood Cells % (auto) 0.0, Neutrophils 75H, Band Neutrophils 1, Lymphocytes (Manual) 18, Monocytes (Manual) 3, Metamyelocytes 1H, Myelocytes 1H, Atypical Lymphocytes 1, Polychromasia 1+, Basophilic Stippling 1+, Anisocytosis 1+, Platelet Estimate NORMAL, Anion Gap 2L, Glomerular Filtration Rate > 60.0, Calcium Level 8.7, T otal Bilirubin 0.6, Aspartate Amino Transf (AST/SGOT) 14, Alanine Aminotransferase (ALT/SGPT) 35, Alkaline Phosphatase 66, Total Protein 6.0L, Albumin 2.9L, Albumin/Globulin Ratio 0.94L 01/11/20 11:39: Bedside Glucose (Misc Panel) 335H CBC/BMP Laboratory Tests 01/11/20 05:05 Microbiology Microbiology 01/09/20 Respiratory Virus Panel (PCR) ([facility]) - Final, Complete Basim Meng M.D. Jan 11, 2020 13:23
[2020-01-11] MEDS: POTASSIUM CHLORIDE 10 MEQ SR TABLET PO SCH (15:12)
[2020-01-11] MEDS: metFORMIN XR 500MG TAB *GLUCOPHAGE XR PO SCH (17:24)
[2020-01-11] MEDS: SUCRALFATE SUSP 1GM/10ML UD PO SCH ×2 (18:30→21:47)
[2020-01-11] MEDS ORDERED: CALCIUM CARBONATE 500 MG CHEW U/D PO PRN (18:30)
[2020-01-11] MEDS: LEVEMIR (INSULIN DETEMIR) 1 UNITS/0.01ML SC SCH (21:47)
[2020-01-11] MEDS: PARoxetine 20 MG TAB PO SCH (21:47)
[2020-01-11] MEDS: ATORVASTATIN 20 MG TAB PO SCH (21:48)
[2020-01-11] MEDS: predniSONE 20 MG TAB PO SCH (21:48)
[2020-01-11] MEDS: oxyCODONE 5MG TAB PO PRN (21:48)
[2020-01-12] VITALS: BP 115/74
[2020-01-12 04:00] VITALS: BP 120/73
[2020-01-12] MEDS: ENOXAPARIN 40MG/0.4ML SYRINGE (J1650 PER 10MG) SC SCH (04:33)
[2020-01-12 05:39] LABS: BLOOD UREA NITROGEN 21 MG/DL (7-18); CALCIUM LEVEL 9.1 MG/DL (8.5-10.1); CARBON DIOXIDE LEVEL 42 MEQ/L (21-32); CHLORIDE LEVEL 89 MEQ/L (98-107); CREATININE FOR GFR 0.74 MG/DL (0.55-1.30); GLOMERULAR FILTRATION RATE > 60.0 (>51); GLUCOSE, FASTING 289 MG/DL (70-100); MAGNESIUM LEVEL 1.9 MG/DL (1.8-2.4); PHOSPHORUS LEVEL 3.8 MG/DL (2.5-4.9); POTASSIUM SERUM 4.2 MEQ/L (3.5-5.1); SODIUM LEVEL 133 MEQ/L (136-145)
--- NOTE | 2020-01-12 07:11 | ECHO ---
DATE OF PROCEDURE: 01/10/2020 REFERRING PROVIDER: Dr. Raffy Ervin PATIENT LOCATION; Room 3226 REASON FOR THE STUDY: Abnormal EKG. 2D MEASUREMENTS: IVS: 1.0 cm LV: 4.3 cm LVPW: 1.0 cm LA: 3.1 cm Aorta: 2.6 cm IVS: 1.8 cm 2D COMMENTS: 1. Normal left ventricular size, wall thickness, and normal global left ventricular systolic function. The estimated left ventricular systolic ejection fraction was 60-65%. 2. Normal left atrium. The right atrium and right ventricle were not well visualized but may be mildly enlarged in limited views. 3. Normal aortic root. 4. The atrial septum appeared to be normal without evidence of defect or shunt. 5. Trace to small pericardial effusion noted, no evidence of cardiac tamponade. 6. Mildly calcified aortic valve with normal leaflet excursion. Normal mitral valve, tricuspid valve. The pulmonic valve also appeared to be normal. The proximal pulmonary artery branches were not well visualized. 7. The inferior vena cava was normal in size, central venous pressure is most likely normal. DOPPLER: It detects trace to mild mitral regurgitation, trace pulmonic regurgitation. Subjectively, there are features consistent with findings of grade 1 left ventricular diastolic dysfunction manifested by abnormal relaxation. IMPRESSION: 1. Technically limited study due to poor acoustic window. 2. Normal global left ventricular systolic function. There are some features of grade 1 left ventricular diastolic dysfunction manifested by abnormal relaxation. 3. Aortic valve sclerosis without stenosis or aortic regurgitation. 4. Trace to mild mitral regurgitation. 5. Trace pulmonic regurgitation. 6. Trace to small pericardial effusion, no evidence of cardiac tamponade. 7. Patient was noted during the test to be mildly tachycardiac. 8. Most recent echocardiogram on 09/21/2019 and at that time, the patient was more tachycardiac, otherwise no remarkable changes. [facility]
[2020-01-12] MEDS: ADVAIR HFA 230/21MCG INHALER INH SCH ×2 (07:40→18:30)
[2020-01-12 08:00] VITALS: BP 135/82
[2020-01-12] MEDS: metFORMIN XR 500MG TAB *GLUCOPHAGE XR PO SCH ×2 (08:00→17:45)
[2020-01-12] MEDS: BISOPROLOL FUM 2.5 MG PER 1/2TAB PO SCH (08:00)
[2020-01-12] MEDS: PANTOPRAZOLE 40MG TAB (PROTONIX) PO SCH (08:01)
[2020-01-12] MEDS: FUROSEMIDE 40 MG TAB PO SCH (08:01)
[2020-01-12] MEDS: OLANZapine 5 MG TAB PO SCH (08:01)
[2020-01-12] MEDS: DOXYCYCLINE HYCLATE 100MG TABLET PO SCH ×2 (08:01→20:50)
[2020-01-12] MEDS: POTASSIUM CHLORIDE 10 MEQ SR TABLET PO SCH (08:01)
[2020-01-12] MEDS: predniSONE 20 MG TAB PO SCH ×2 (08:01→20:51)
[2020-01-12] MEDS: GABAPENTIN 300 MG CAP PO SCH ×3 (08:01→20:51)
[2020-01-12] MEDS: DULoxetine 30 MG CAP (CYMBALTA) PO SCH (08:02)
[2020-01-12] MEDS: SUCRALFATE SUSP 1GM/10ML UD PO SCH ×4 (08:02→20:50)
[2020-01-12] MEDS: HumaLOG INSULIN (NovoLOG) PER UNIT SC SCH ×4 (08:02→19:42)
[2020-01-12] MEDS: LACTIC ACID 12% LOTION 225 GM BTL TOP SCH (08:03)
[2020-01-12 12:00] VITALS: BP 139/95
[2020-01-12] MEDS: guaiFENesin ER 600 MG TAB PO SCH ×2 (14:10→20:51)
[2020-01-12] MEDS: LEVALBUTEROL 1.25 MG/0.5 ML CONCENTRATE NEB INH PRN (14:50)
--- NOTE | 2020-01-12 15:55 | IPNPDOC ---
Subjective Date Seen The patient was seen on 01/12/20. Subjective Chief Complaint/HPI Ms. Reza reports that her breathing is improving slowly. Nursing reports that she has been tachycardic most of the day. It seems that most the time she is in sinus tachycardia, but her bedside nurse was concerned that a couple times she might have been in atrial fibrillation. The nurse reports that she is doing well with checking her sugars and administering her own insulin. General: Reports: Normal Appetite Pulmonary: Reports: Dyspnea (slowly improving), Cough; Denies: Pleuritic Chest Pain Cardiovascular: Denies: Chest Pain Psych: Reports: Mood Normal Objective Physical Examination General Exam: Positive: Alert, Cooperative (sitting up in bed when I entered the room), No Acute Distress Eye Exam: Positive: Conjunctiva & lids normal; Negative: Sclera icteric ENT Exam: Positive: Mucous membr. moist/pink Neck Exam: Positive: Supple; Negative: Lymphadenopathy Chest Exam: Positive: Diminished; Negative: Wheezing Heart Exam: Positive: Rate Normal, Normal S1, Normal S2; Negative: Murmurs Abdomen Exam: Positive: Normal bowel sounds Extremity Exam: Negative: Edema Psych Exam: Positive: Mood NL, Oriented x 3 Assessment /Plan Problems (1) COPD (chronic obstructive pulmonary disease) Status: Chronic Problem Text: D4 doxy po. Mucinex and Xopenex nebulizer treatments were added today. HD 02 is 3L cont, so she is currently on her usual oxygen. 01/10 changed to pred 20 BID 01/09 decreased to 40 QD 01/08 improved on MP 40 TID 01/07 -RP 01/07 CTA chest: 1. No evidence of acute, central pulmonary embolus. Peripheral pulmonary arterial evaluation is limited by cardiac and respiratory motion artifact. 2. Improvement in lower lobe bronchitis changes since the recent prior CT from December 30, 2019 3. No other acute or concerning focal intrathoracic abnormality. 4. Centrilobular emphysema with similar pattern compared to the prior CT, as expected over the short interim (2) Atrial fibrillation with RVR Status: Acute Problem Text: 01/11 - I decided to use 5 mg of bisoprolol this evening and see what that does for her rate. We'll adjust her ongoing regimen tomorrow based on these results. 01/10 - RC on biso 2.5 BID (new) 01/09 + AC apix 5 BID, repeat TTE (3) Type 2 diabetes mellitus Status: Chronic Response to Treatment: Progressing Problem Text: She is doing well with checking her glucose levels and administering her insulin per nursing. HD met 1000 BID 01/10 AC br 335!; therefore, det to 20 and readd HD met 01/10/20 A1C 9.8! c AC BG high 300s (reports AC home BGs mid 300s); therefore, + NCS c det 10, SSLI AC QHS, insulin teaching to start home basal insulin (4) Physical deconditioning Status: Chronic Problem Text: 01/09 NS to dc home (5) Hypothyroidism Status: Chronic Problem Text: 01/08 0.07/0.9 on HD LT4 25 (doubt actually needed, therefore, stopped; recheck in 6W as outpx) (6) Diastolic congestive heart failure Status: Chronic Response to Treatment: Stable Problem Text: Euvolemic on HD fur 40 01/07 T-I <0.02, BNP 130 08/2019 [facility] 1. Technically limited study due to poor acoustic window. 2. Normal global left ventricular systolic function. There are some features of grade 1 left ventricular diastolic dysfunction manifested by abnormal relaxation. 3. No significant valvular heart disease detected. 4. Trace pericardial effusion, no evidence of cardiac tamponade. 5. Please refer to above for more details. DD: PRIYANKA ASIF MD 09/21/19 1248 Plan/VTE VTE Prophylaxis Ordered?: Yes (Lovenox) VS, I&O, 24H, Fishbone Vital Signs/I&O Vital Signs Date Time Temp Pulse Resp B/P (MAP) Pulse Ox O2 Delivery O2 Flow Rate FiO2 01/12/20 12:00 3.0 01/12/20 12:00 96.8 62 22 139/95 (110) 93 High Flow Cannula 01/09/20 00:08 85 I&O- Last 24 Hours up to 6 AM 01/12/20 06:00 Intake Total 2130 ml Output Total 2250 ml Balance -120 ml Laboratory Data 24H LABS Laboratory Tests 2 01/11/20 16:47: Bedside Glucose (Misc Panel) 311H 01/11/20 21:30: Bedside Glucose (Misc Panel) 218H 01/12/20 04:52: Anion Gap 2L, Glomerular Filtration Rate > 60.0, Calcium Level 9.1, Phosphorus Level 3.8, Magnesium Level 1.9, Albumin 3.0L 01/12/20 11:53: Bedside Glucose (Misc Panel) 207H CBC/BMP Laboratory Tests 01/12/20 04:52 Microbiology Microbiology 01/09/20 Respiratory Virus Panel (PCR) ([facility]) - Final, Complete Antonio Jones MD Jan 12, 2020 15:55
[2020-01-12 16:00] VITALS: BP 148/84
[2020-01-12] MEDS ORDERED: bisoproloL fumarate 5 MG TAB PO ONE (18:30)
[2020-01-12] MEDS ORDERED: SLF 3 ML SYR IV PRN (18:30)
[2020-01-12 20:00] VITALS: BP 141/88
[2020-01-12] MEDS: PARoxetine 20 MG TAB PO SCH (20:50)
[2020-01-12] MEDS: LEVEMIR (INSULIN DETEMIR) 1 UNITS/0.01ML SC SCH (20:50)
[2020-01-12] MEDS: SLF 3 ML SYR IV SCH (20:51)
[2020-01-12] MEDS: oxyCODONE 5MG TAB PO PRN (20:51)
[2020-01-12] MEDS: ATORVASTATIN 20 MG TAB PO SCH (20:51)
[2020-01-13] VITALS: BP 144/79
[2020-01-13 04:00] VITALS: BP 133/84
[2020-01-13 04:23] LABS: HEMATOCRIT 42.3 % (36.0-47.0); HEMOGLOBIN 13.2 g/dl (12.0-15.5); MEAN CORPUSCULAR HEMOGLOBIN 29.2 pg (27.0-33.0); MEAN CORPUSCULAR HGB CONC 31.2 g/dl (32.0-36.5); MEAN CORPUSCULAR VOLUME 93.6 fl (80.0-96.0); PLATELET COUNT, AUTOMATED 201 10^3/uL (150-450); RED BLOOD COUNT 4.52 10^6/uL (4.00-5.40); WHITE BLOOD COUNT 13.5 10^3/uL (4.0-10.0)
[2020-01-13 04:48] LABS: ALBUMIN 2.7 GM/DL (3.2-5.2); BLOOD UREA NITROGEN 24 MG/DL (7-18); CALCIUM LEVEL 8.3 MG/DL (8.5-10.1); CARBON DIOXIDE LEVEL 39 MEQ/L (21-32); CHLORIDE LEVEL 91 MEQ/L (98-107); CREATININE FOR GFR 0.85 MG/DL (0.55-1.30); GLOMERULAR FILTRATION RATE > 60.0 (>51); GLUCOSE, FASTING 277 MG/DL (70-100); SODIUM LEVEL 133 MEQ/L (136-145)
[2020-01-13 05:12] LABS: ATYPICAL LYMPH 2 % (0-5); LYMPHOCYTES 8 % (16-44); MONOCYTES 8 % (0-5); MYELOCYTES 2 % (0-0); NEUTROPHILS 80 % (28-66); PLATELET ESTIMATE NORMAL (NORMAL)
[2020-01-13] MEDS: SLF 3 ML SYR IV SCH ×3 (06:04→22:08)
[2020-01-13] MEDS: ENOXAPARIN 40MG/0.4ML SYRINGE (J1650 PER 10MG) SC SCH (06:05)
[2020-01-13 08:00] VITALS: BP 135/83
[2020-01-13] MEDS: ADVAIR HFA 230/21MCG INHALER INH SCH ×2 (08:00→20:01)
[2020-01-13] MEDS: SUCRALFATE SUSP 1GM/10ML UD PO SCH ×4 (08:37→21:00)
[2020-01-13] MEDS: HumaLOG INSULIN (NovoLOG) PER UNIT SC SCH ×4 (08:38→20:19)
[2020-01-13] MEDS: GABAPENTIN 300 MG CAP PO SCH ×3 (08:38→20:20)
[2020-01-13] MEDS: metFORMIN XR 500MG TAB *GLUCOPHAGE XR PO SCH ×2 (08:38→17:24)
[2020-01-13] MEDS: BISOPROLOL FUM 2.5 MG PER 1/2TAB PO SCH (08:38)
[2020-01-13] MEDS: guaiFENesin ER 600 MG TAB PO SCH ×2 (08:39→20:20)
[2020-01-13] MEDS: POTASSIUM CHLORIDE 10 MEQ SR TABLET PO SCH (08:39)
[2020-01-13] MEDS: predniSONE 20 MG TAB PO SCH ×2 (08:39→20:20)
[2020-01-13] MEDS: OLANZapine 5 MG TAB PO SCH (08:39)
[2020-01-13] MEDS: PANTOPRAZOLE 40MG TAB (PROTONIX) PO SCH (08:39)
[2020-01-13] MEDS: DULoxetine 30 MG CAP (CYMBALTA) PO SCH (08:39)
[2020-01-13] MEDS: FUROSEMIDE 40 MG TAB PO SCH (08:39)
[2020-01-13] MEDS: DOXYCYCLINE HYCLATE 100MG TABLET PO SCH ×2 (08:39→20:20)
[2020-01-13] MEDS: LACTIC ACID 12% LOTION 225 GM BTL TOP SCH (08:40)
[2020-01-13 12:00] VITALS: BP 138/84
[2020-01-13] MEDS ORDERED: BISOPROLOL FUM 2.5 MG PER 1/2TAB PO ONE (13:00)
--- NOTE | 2020-01-13 13:41 | IPNPDOC ---
Subjective Date Seen The patient was seen on 01/13/20. Subjective Chief Complaint/HPI Ms. Reza reports that her breathing is nearing baseline. Nursing remains nervous that her heart rate jumps up to the 150s or even 170s when she is moving around the room or eating. It remains in sinus. There is probably a large element of physiologic response to physical stress or transient hypoxia from eating going on. Physical therapy worked with her and was reportedly relatively pleased. General: Reports: Normal Appetite Constitutional: Denies: Chills, Fever Pulmonary: Reports: Dyspnea (stable/chronic) Cardiovascular: Denies: Chest Pain, Palpitations Psych: Reports: Mood Normal Objective Physical Examination General Exam: Positive: Alert, Cooperative (sitting in her bedside chair when I entered the room), No Acute Distress Eye Exam: Positive: Conjunctiva & lids normal; Negative: Sclera icteric ENT Exam: Positive: Mucous membr. moist/pink Neck Exam: Positive: Supple; Negative: Lymphadenopathy Chest Exam: Positive: Diminished (slightly more movement of air than yesterday); Negative: Wheezing Heart Exam: Positive: Rate Normal, Normal S1, Normal S2, Murmurs (2/6 aortic ejection murmur heard today) Abdomen Exam: Positive: Normal bowel sounds Extremity Exam: Negative: Edema Psych Exam: Positive: Mood NL, Oriented x 3 Assessment /Plan Problems (1) COPD (chronic obstructive pulmonary disease) Status: Chronic Problem Text: D5/10 doxy po. Mucinex and Xopenex nebulizer treatments seem to be helping some. HD 02 is 3L cont, so she is currently on her usual oxygen. 01/10 changed to pred 20 BID 01/09 decreased to 40 QD 01/08 improved on MP 40 TID 01/07 -RP 01/07 CTA chest: 1. No evidence of acute, central pulmonary embolus. Peripheral pulmonary arterial evaluation is limited by cardiac and respiratory motion artifact. 2. Improvement in lower lobe bronchitis changes since the recent prior CT from December 30, 2019 3. No other acute or concerning focal intrathoracic abnormality. 4. Centrilobular emphysema with similar pattern compared to the prior CT, as expected over the short interim (2) Atrial fibrillation with RVR Status: Acute Problem Text: 01/12- I will change it to bisoprolol 5 mg by mouth twice a day. I think this will help with her transient tachycardia and bring her baseline down as well. 01/11 - I decided to use 5 mg of bisoprolol this evening and see what that does for her rate. We'll adjust her ongoing regimen tomorrow based on these results. 01/10 - RC on biso 2.5 BID (new) 01/09 + AC apix 5 BID, repeat TTE (3) Type 2 diabetes mellitus Status: Chronic Response to Treatment: Progressing Problem Text: She is doing well with checking her glucose levels and administering her insulin per nursing. HD met 1000 BID 01/10 AC br 335!; therefore, det to 20 and readd HD met 01/10/20 A1C 9.8! c AC BG high 300s (reports AC home BGs mid 300s); therefore, + NCS c det 10, SSLI AC QHS, insulin teaching to start home basal insulin (4) Physical deconditioning Status: Chronic Problem Text: Improving with physical therapy but still not safe for home. Hopefully she may be by tomorrow. (5) Hypothyroidism Status: Chronic Problem Text: 01/08 0.07/0.9 on HD LT4 25 (doubt actually needed, therefore, stopped; recheck in 6W as outpx) (6) Diastolic congestive heart failure Status: Chronic Response to Treatment: Stable Problem Text: Euvolemic on HD fur 40 01/07 T-I <0.02, BNP 130 08/2019 [facility] 1. Technically limited study due to poor acoustic window. 2. Normal global left ventricular systolic function. There are some features of grade 1 left ventricular diastolic dysfunction manifested by abnormal relaxation. 3. No significant valvular heart disease detected. 4. Trace pericardial effusion, no evidence of cardiac tamponade. 5. Please refer to above for more details. DD: PRIYANKA ASIF MD 09/21/19 1248 Plan/VTE VTE Prophylaxis Ordered?: Yes (Lovenox) VS, I&O, 24H, Fishbone Vital Signs/I&O Vital Signs Date Time Temp Pulse Resp B/P (MAP) Pulse Ox O2 Delivery O2 Flow Rate FiO2 01/13/20 12:58 120 138/84 01/13/20 12:00 3.0 01/13/20 12:00 96.2 18 96 High Flow Cannula 01/09/20 00:08 85 I&O- Last 24 Hours up to 6 AM 01/13/20 06:00 Intake Total 2160 ml Output Total 2350 ml Balance -190 ml Laboratory Data 24H LABS Laboratory Tests 2 01/12/20 17:39: Bedside Glucose (Misc Panel) 274H 01/12/20 19:37: Bedside Glucose (Misc Panel) 235H 01/13/20 04:06: Immature Granulocyte % (Auto) , Neutrophils (%) (Auto) , Nucleated Red Blood Cells % (auto) 0.1H, Neutrophils 80H, Lymphocytes (Manual) 8L, Monocytes (Manual) 8H, Myelocytes 2H, Atypical Lymphocytes 2, Platelet Estimate NORMAL, Anion Gap 3L, Glomerular Filtration Rate > 60.0, Calcium Level 8.3L, Phosphorus Level 4.0, C-Reactive Protein, Quantitative 0.50H, Albumin 2.7L 01/13/20 11:59: Bedside Glucose (Misc Panel) 209H CBC/BMP Laboratory Tests 01/13/20 04:06 01/13/20 05:09 Microbiology Microbiology 01/09/20 Respiratory Virus Panel (PCR) ([facility]) - Final, Complete Antonio Jones MD Jan 13, 2020 1:41 pm
[2020-01-13 16:00] VITALS: BP 138/89
[2020-01-13] MEDS: LEVALBUTEROL 1.25 MG/0.5 ML CONCENTRATE NEB INH PRN (16:38)
[2020-01-13 20:00] VITALS: BP 147/88
[2020-01-13] MEDS: ATORVASTATIN 20 MG TAB PO SCH (20:20)
[2020-01-13] MEDS: LEVEMIR (INSULIN DETEMIR) 1 UNITS/0.01ML SC SCH (20:20)
[2020-01-13] MEDS: PARoxetine 20 MG TAB PO SCH (20:21)
[2020-01-13] MEDS: bisoproloL fumarate 5 MG TAB PO SCH (20:23)
[2020-01-13] MEDS: oxyCODONE 5MG TAB PO PRN (20:24)
[2020-01-14] VITALS: BP 135/87
[2020-01-14 04:00] VITALS: BP 135/85
[2020-01-14 04:57] LABS: HEMATOCRIT 40.5 % (36.0-47.0); HEMOGLOBIN 12.5 g/dl (12.0-15.5); MEAN CORPUSCULAR HEMOGLOBIN 28.8 pg (27.0-33.0); MEAN CORPUSCULAR HGB CONC 30.9 g/dl (32.0-36.5); MEAN CORPUSCULAR VOLUME 93.3 fl (80.0-96.0); PLATELET COUNT, AUTOMATED 193 10^3/uL (150-450); RED BLOOD COUNT 4.34 10^6/uL (4.00-5.40); WHITE BLOOD COUNT 12.6 10^3/uL (4.0-10.0)
[2020-01-14 05:19] LABS: BLOOD UREA NITROGEN 27 MG/DL (7-18); CALCIUM LEVEL 8.7 MG/DL (8.5-10.1); CARBON DIOXIDE LEVEL 39 MEQ/L (21-32); CHLORIDE LEVEL 92 MEQ/L (98-107); GLOMERULAR FILTRATION RATE > 60.0 (>51); GLUCOSE, FASTING 301 MG/DL (70-100); POTASSIUM SERUM 4.1 MEQ/L (3.5-5.1); SODIUM LEVEL 136 MEQ/L (136-145)
[2020-01-14] MEDS: SLF 3 ML SYR IV SCH (05:48)
[2020-01-14] MEDS: ENOXAPARIN 40MG/0.4ML SYRINGE (J1650 PER 10MG) SC SCH (05:48)
[2020-01-14] MEDS: ADVAIR HFA 230/21MCG INHALER INH SCH (07:38)
[2020-01-14 07:53] VITALS: BP 146/81
[2020-01-14] MEDS: DULoxetine 30 MG CAP (CYMBALTA) PO SCH (08:33)
[2020-01-14] MEDS: predniSONE 20 MG TAB PO SCH (08:33)
[2020-01-14] MEDS: FUROSEMIDE 40 MG TAB PO SCH (08:33)
[2020-01-14] MEDS: PANTOPRAZOLE 40MG TAB (PROTONIX) PO SCH (08:33)
[2020-01-14] MEDS: OLANZapine 5 MG TAB PO SCH (08:33)
[2020-01-14] MEDS: GABAPENTIN 300 MG CAP PO SCH ×2 (08:34→17:14)
[2020-01-14] MEDS: metFORMIN XR 500MG TAB *GLUCOPHAGE XR PO SCH (08:34)
[2020-01-14] MEDS: SUCRALFATE SUSP 1GM/10ML UD PO SCH ×3 (08:34→17:14)
[2020-01-14] MEDS: POTASSIUM CHLORIDE 10 MEQ SR TABLET PO SCH (08:34)
[2020-01-14 08:35] VITALS: BP 146/81
[2020-01-14] MEDS: DOXYCYCLINE HYCLATE 100MG TABLET PO SCH (08:35)
[2020-01-14] MEDS: guaiFENesin ER 600 MG TAB PO SCH (08:35)
[2020-01-14] MEDS: bisoproloL fumarate 5 MG TAB PO SCH (08:35)
[2020-01-14] MEDS: LACTIC ACID 12% LOTION 225 GM BTL TOP SCH (08:36)
[2020-01-14] MEDS: HumaLOG INSULIN (NovoLOG) PER UNIT SC SCH ×2 (08:36→12:42)
[2020-01-14 11:36] VITALS: BP 127/79
--- NOTE | 2020-01-14 15:04 | DS.PDOC ---
Discharge Summary General Date of Admission Jan 09, 2020 at 01:53 Date of Discharge 01/14/20 Primary Care Physician: Tim Spencer MD Attending Physician: Antonio Jones MD Discharge Summary ADMITTING DIAGNOSES: 1. COPD exacerbation. 2. Hypoxemic and hypercapnic respiratory failure. 3. Type 2 diabetes. 4. Hypothyroidism. 5. Neck neck pain. 6. Atrial fibrillation. DISCHARGE DIAGNOSES: 1. COPD exacerbation. 2. Acute on chronic hypoxemic and hypercapnic respiratory failure. 3. Atrial fibrillation with RVR. 4. Type 2 diabetes. 5. Hypothyroidism 6. Diastolic congestive heart failure. 7. Chronic neck pain. PROCEDURES PERFORMED DURING STAY: None. ADMISSION HISTORY: Ms. Reza presents from home with worsening shortness of breath. Please see the admission history and physical for the remaining details. HOSPITAL COURSE: Ms. Reza was admitted for COPD exacerbation, however while she was still in the emergency department her atrial fibrillation went into rapid ventricular response. She was ultimately rate controlled on bisoprolol 5 mg twice daily although this required some titration. She was anticoagulated with apixaban. Her COPD exacerbation was controlled and she was discharged to continue her prescribed courses of prednisone and doxycycline. DISCHARGE CONDITION: Stable. FOLLOW-UP: Prior to discharge an appointment was scheduled with SANTY Julian on 01/20/20 at 11 AM. ACTIVITY: As tolerated. DIET: 2 g sodium. DISCHARGE MEDICATIONS: Please see below. ALLERGIES: Please see below. LABORATORY DATA: Please see below. IMAGING: Chest x-ray, CT angiogram of the chest. Vital Signs/I&Os Vital Signs Date Time Temp Pulse Resp B/P (MAP) Pulse Ox O2 Delivery O2 Flow Rate FiO2 01/14/20 11:36 96.9 103 18 127/79 (95) 96 High Flow Cannula 3.0 01/13/20 20:24 85 I&O- Last 24 Hours up to 6 AM 01/14/20 05:59 Intake Total 840 ml Output Total 2000 ml Balance -1160 ml Laboratory Data Labs 24H Laboratory Tests 2 01/13/20 17:20: Bedside Glucose (Misc Panel) 258H 01/13/20 19:52: Bedside Glucose (Misc Panel) 274H 01/14/20 04:28: Nucleated Red Blood Cells % (auto) 0.0, Anion Gap 5L, Glomerular Filtration Rate > 60.0, Calcium Level 8.7 3/24/20 11:43: Bedside Glucose (Misc Panel) 238H CBC/BMP Laboratory Tests 01/14/20 04:28 FSBS Laboratory Tests Test 01/13/20 17:20 01/13/20 19:52 01/14/20 11:43 Range/Units Bedside Glucose (Misc Panel) 258 274 238 70-105 MG/DL Microbiology Microbiology 01/09/20 Respiratory Virus Panel (PCR) (KARUNA) - Final, Complete Discharge Medications Scheduled Apixaban (Eliquis) 5 Mg Tablet, 5 MG PO BID, (Reported) Atorvastatin Calcium (Atorvastatin Calcium) 20 Mg Tab, 20 MG PO QHS, (Reported) Dexlansoprazole (Dexilant) 60 Mg Cap, 60 MG PO DAILY, (Reported) Duloxetine Hcl (Duloxetine HCl) 60 Mg Capsule.dr, 60 MG PO DAILY, (Reported) Furosemide (Furosemide) 40 Mg Tablet, 40 MG PO DAILY, (Reported) Gabapentin (Gabapentin) 600 Mg Tab, 600 MG PO TID, (Reported) Insulin Detemir (Levemir) 100 Unit/1 Ml Vial, 20 UNITS SC QHS, (Reported) Levothyroxine Sodium (Levothyroxine Sodium) 25 Mcg Tablet, 25 MCG PO DAILY, (Reported) Metformin HCl (Glucophage Xr) 500 Mg Tab.er.24h, 1,000 MG PO BID, (Reported) Olanzapine (Olanzapine) 5 Mg Tablet, 5 MG PO DAILY, (Reported) Paroxetine HCl (Paroxetine HCl) 40 Mg Tab, 40 MG PO QHS, (Reported) Plecanatide (Trulance) 3 Mg Tablet, 3 MG PO QHS, (Reported) Prednisone (Prednisone) 20 Mg Tablet, 20 MG PO DAILY, (Reported) Salmeterol/Fluticasone (Advair 500-50 Diskus) 1 Each Blst.w.dev, 1 PUFF INH BID, (Reported) Umeclidinium [place] (Incruse Ellipta) 62.5 Mcg/Inh Inh, 1 PUFF INH DAILY, (Reported) TAKES AT NOON Scheduled PRN Albuterol Sulfate (Ventolin Hfa) 18 Gm Hfa.aer.ad, 2 PUFF INH Q4H PRN for KATI RTNESS OF BREATH, (Reported) Oxycodone HCl (Oxycodone HCl) 5 Mg Tab, 5 MG PO BID PRN for PAIN, (Reported) Allergies Coded Allergies: No Known Allergies (Verified Allergy, Unknown, 12/09/19) Antonio Jones MD Jan 14, 2020 15:04
[2020-01-14] MEDS ORDERED: ELIQ5TAB PO (15:30)
[2020-01-14] MEDS ORDERED: DOXY100T PO (15:30)
[2020-01-14] MEDS ORDERED: MUCI600T31 PO (15:30)
[2020-01-14] MEDS ORDERED: BISO5TAB14 PO (15:30)
[2020-01-14] MEDS ORDERED: GLUCTAB PO (15:30)
[2020-01-14] MEDS ORDERED: PRED20TA PO (15:30)
[2020-01-14] MEDS ORDERED: INSUDET SC (15:30)
== END 2020-01-14 17:30 | disposition home or self-care (01) | DRG 191 ==
LOC: M ED 16:54 → EDBD 16:54 → M ED INP 01-09 01:53 → ENRESERV 01-09 03:03 → M PCU 01-09 03:53
PROVIDERS: ADMIT Internal Medicine; ATTEND Family Medicine
DX: J44.1 Chronic obstructive pulmonary disease with (acute) exacerbation (principal); I50.32 Chronic diastolic (congestive) heart failure; J96.12 Chronic respiratory failure with hypercapnia; E11.9 Type 2 diabetes mellitus without complications; I48.0 Paroxysmal atrial fibrillation; E03.9 Hypothyroidism, unspecified; I11.0 Hypertensive heart disease with heart failure; G89.29 Other chronic pain; M54.2 Cervicalgia; R00.0 Tachycardia, unspecified; Z99.81 Dependence on supplemental oxygen; Z79.52 Long term (current) use of systemic steroids; Z79.891 Long term (current) use of opiate analgesic; Z79.84 Long term (current) use of oral hypoglycemic drugs; Z72.3 Lack of physical exercise

== ENCOUNTER → 2020-01-17 | Outpatient (CLI) | payer MEDICARE, MEDICAID ==
[~2020-01-17] MED LIST changes: +ADVA230A INH; +ELIQ5TAB PO; +GLUCTAB PO; +INSUDET SC; +MUCI600T31 PO
--- NOTE | 2020-01-17 23:14 | ECWPNPC ---
PATIENT NAME: ARTHUR ALSTON : 1960 GENDER: FEMALE VISIT DATE: 01/17/2020 DISCHARGE DATE: 01/17/20 1052 VISIT LOCKED DATE TIME: PHYSICIAN: HARSH RICHTER RESOURCE: HARSH RICHTER REASON FOR APPOINTMENT 1. MEDS HISTORY OF PRESENT ILLNESS HISTORY OF PRESENT ILLNESS: HERE FOR FOLLOW-UP AND MEDICINE MANAGEMENT OF CHRONIC NECK PAIN WITH LEFT ARM RADICULAR SYMPTOMS. DESCRIBES PAIN ACHING, BURNING AND THROBBING. RATING PAIN LEVEL A 6/10 VAS. PAIN IS AGGRAVATED BY USE OF LEFT ARM OR ACTIVITIES. PAIN IS RELIEVED SOMEWHAT AT REST AND WITH MEDICATIONS. CURRENTLY USING OXYCODONE 5 MG, MAX DAILY DOSE OF 2 PER DAY AND GABAPENTIN 600 MG 3 TIMES A DAY. FINDS MEDICATION SOMEWHAT HELPFUL AT REDUCING PAIN AND KEEPING HER SOMEWHAT FUNCTIONAL. DENIES SIDE EFFECTS. PAIN THE PATIENT DESCRIBES THE PAIN... FALL RISK SCREENING: SCREENING :NO FALLS REPORTED IN THE LAST YEAR CURRENT MEDICATIONS TAKING AMMONIUM LACTATE 12 % CREAM 1 APPLICATION EXTERNALLY TO FEET TWICE DAILY NEEDED FOR DRY SKIN, NOTES: HOSP D/C 01/14/20=QD TAKING BLOOD GLUCOSE SYSTEM DIANELYS - KIT DIRECTED DX: E11.9 DAILY TAKING BLOOD GLUCOSE TEST STRIP 1 STRIP SUBCUTANEOUSLY DAILY, E11.9 TAKING DEXILANT 60 MG CAPSULE DELAYED RELEASE 1 CAPSULE ORALLY ONCE A DAY TAKING DULOXETINE HCL 60 MG CAPSULE DELAYED RELEASE PARTICLES 1 CAPSULE ORALLY ONCE A DAY TAKING FUROSEMIDE 40 MG TABLET 1 TABLET ORAL ONCE A DAY TAKING GABAPENTIN 600 MG TABLET 1 TABLET ORALLY THREE TIMES A DAY TAKING HOSPITAL BED DIRECTED J44.99 TAKING [facility] TABBED - PAD DIRECTED J44.9 TAKING INCRUSE ELLIPTA 62.5 MCG/INH AEROSOL POWDER BREATH ACTIVATED 1 PUFF INHALATION ONCE A DAY TAKING LANCETS - MISCELLANEOUS 1 LANCET SUBCUTANEOUSLY DAILY, E11.9 TAKING LIPITOR 20 MG TABLET 1 TABLET ORALLY ONCE A DAY TAKING OLANZAPINE 5 MG TABLET 1 TABLET ORALLY ONCE A DAY TAKING OXYGEN _ 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 PATIENT ON 4L OXY-GO-POC TAKING PAROXETINE HCL 40 MG TABLET TAKE ONE TABLET BY MOUTH EVERY MORNING TAKING SYNTHROID 25 MCG TABLET 1 TABLET ON AN EMPTY STOMACH IN THE MORNING ORALLY ONCE A DAY TAKING TRULANCE 3 MG TABLET 1 TABLET ORALLY ONCE A DAY TAKING VENTOLIN HFA 90 MCG/ACT AEROSOL SOLUTION 2 PUFFS NEEDED INHALATION EVERY 4 HOURS FOR WHEEZING TAKING WHEELCHAIR - MISCELLANEOUS DIRECTED _ J96.11 TAKING APIXABAN 5 MG TABLET 1 TAB ORALLY TWICE DAILY TAKING BISOPROLOL FUMARATE 5 MG TABLET 1 TABLET ORALLY TWICE DAILY TAKING DOXYCYCLINE HYCLATE 100 MG TABLET 1 TABLET ORALLY TWICE DAILY UNTIL GONE, STOP DATE 01/19/2020 TAKING MUCINEX 600 MG TABLET EXTENDED RELEASE 12 HOUR 1 TABLET NEEDED ORALLY TWICE DAILY FOR COUGH TAKING LEVEMIR 100 UNIT/ML SOLUTION INJECT 20 UNITS SUBCUTANEOUS ONCE DAILY AT BEDTIME TAKING METFORMIN HCL ER 500 MG TABLET EXTENDED RELEASE 24 HOUR 2 TABLETS ORALLY TWICE DAILY WITH MEALS TAKING PREDNISONE 20 MG TABLET DIRECTED ORALLY TAKE 1 TAB/DAY X3 DAYS, THEN 1/2 TAB/DAY X4 DAYS THEN STOP, STOP DATE 01/21/2020 TAKING ADVAIR HFA 230-21 MCG/ACT AEROSOL 1 PUFF INHALATION TWICE A DAY, NOTES: DUPLICATE TAKING OXYCODONE HCL 5 MG TABLET 1 TABLET ORALLY EVERY 8-12 HOURS PRN PAIN MDD=2 TAKING LEVOFLOXACIN 500 MG TABLET 1 TABLET ORALLY ONCE A DAY X 7 DAYS TAKING ALBUTEROL SULFATE (2.5 MG/3ML) 0.083% NEBULIZATION SOLUTION 3 ML NEEDED INHALATION EVERY 4 HOURS NEEDED FOR SOB MEDICATION LIST REVIEWED AND RECONCILED WITH THE PATIENT PAST MEDICAL HISTORY COPD CHRONIC OBSTRUCTIVE BRONCHITIS, EMPHYSEMA, DR TREJO CHRONIC O2 3 LPM CHRONIC NECK PAIN - PAIN CLINIC DEPRESSION HYPERLIPIDEMIA HYPERTENSION, 07/05 EKG NSR GERD STRESS URINARY INCONTINENCE H/O ABN MAMMO 07/06, BX 09/05 NEG, AGUERO DUE FOR REPEAT MAMMO EMANUEL DEP 08/02 ECHO, NL EXCEPT MILD RVH PINEAL CYST- NEURO, MRI 05/08 WITHOUT CHANGE. 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 SURGICAL HISTORY CERVICAL SPINE FUSION - WITH RODS AND BONE GRAFT. 1997 LEFT TOTAL KNEE REPLACEMENT- NCOG 07/05 TUBAL LIGATION COLONOSCOPY 08/05 POOR PREP, REPEAT 10/05, SUBOPTIMAL PREP, REPEAT IN 1 YEAR, NBIH 08/05, 10/05 UGI/ ENDOSCOPIC REMOVAL OF FOREIGN OBJECT - PT CHOKED ON A PIECE OF STEAK AND HAD IT REMOVED UNDER ANESTHESIA 08/13/19 FAMILY HISTORY FATHER: , DIAGNOSED WITH OTHER SPECIFIED CONDITIONS INFLUENCING HEALTH STATUS MOTHER: ALIVE, OTHER MALIGNANT NEOPLASM OF UNSPECIFIED SITE PATERNAL GRAND FATHER: PATERNAL GRAND MOTHER: MATERNAL GRAND FATHER: MATERNAL GRAND MOTHER: 2 BROTHER(S) , 1 SISTER(S) - HEALTHY. 2 SON(S) , 1 DAUGHTER(S) . FATHER: CIRROHSIS OF THE LIVER\\\\NMOTHER: COLON CA, HAS A COLOSTOMY BAG\\\\NBROTHER: HTN\\\\NSON: AT 23 \\\\N. SOCIAL HISTORY GENERAL: TOBACCO USE ARE YOU A:FORMER SMOKER HAS QUIT > 1 YEAR, REMAINS ON CHANTIX HOW LONG HAS IT BEEN SINCE YOU LAST SMOKED?1-5 YEARS HIV / HEP-C SCREENING HIV TEST OFFERED TO PATIENT:YES DATE OFFERED:06/29/2017 TEST ACCEPTED:NO HEP-C TEST OFFERED TO PATIENT:YES DATE OFFERED:06/29/2017 REASON:PATIENT DECLINED TEST ACCEPTED:NO REASON:PATIENT DECLINED EDUCATION LEVEL OF EDUCATION:FINISHED HIGH SCHOOL DIET: REGULAR. LANGUAGE LANGUAGES SPOKEN:DANISH NEW PATIENT PAIN DIARY PATIENT DESCRIBES PAIN :ACHING, BURNING, THROBBING FROM 0-10, WHAT LEVEL IS YOUR PAIN TODAY?7 PRECIPITATING FACTORS ACTIVITIES ALLEVIATING FACTORS MEDS, RESTING IMPACT ON FUNCTION YES BMI CARE GOAL FOLLOW-UP ABOVE NORMAL BMI FOLLOW-UPDIETARY MANAGEMENT EDUCATION, GUIDANCE, AND COUNSELING RECREATIONAL DRUG USE DRUG USE?NO EXERCISE: NO REGULAR EXERCISE. LEARNING 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 LUNG CANCER SCREENING SMOKING STATUS:FORMER SMOKER PAIN CLINIC PFS, CLERGY, PUBLIC HEALTH REFERRALS PFS REFERRAL NEEDED?NO CLERGY REFERRAL NEEDED?NO PUBLIC HEALTH REFERRAL NEEDED?NO WAS THE PROVIDER NOTIFIED OF ANY PERTINENT INFO?NO HAS THE PATIENT BEEN EDUCATED REGARDING HIS/HER PLAN OF CARE?YES HAS THE PATIENT BEEN EDUCATED REGARDING PAIN, THE RISK FOR PAIN, THE IMPORTANCE OF EFFECTIVE PAIN MANAGEMENT, AND THE PAIN ASSESSMENT PROCESS?YES LATEX QUESTIONNAIRE LATEX ALLERGY : HAVE YOU EVER DEVELOPED ANY TYPE OF REACTION AFTER HANDLING LATEX PRODUCTS SUCH RUBBER GLOVES, CONDOMS, DIAPHRAGMS, BALLOONS, SOCKS, OR UNDERWEAR?NO LATEX ALLERGY : HAVE YOU EVER DEVELOPED ANY TYPE OF REACTION DURING OR AFTER DENTAL APPOINTMENT, VAGINAL/RECTAL EXAMINATION, SURGICAL PROCEDURE, OR ANY OTHER EXPOSURE?NO DATE ASKED : 01/28/2019 LATEX RISK : HAVE YOU EVER HAD ANY DIFFICULTY BREATHING OR HIVES AFTER EATING OR HANDLING ANY FRUITS, OR VEGETABLES; SUCH KIWI, BANANAS, STONE FRUITS, OR CHESTNUTSNO LATEX RISK : DO YOU HAVE A PREVIOUS PERSONAL HISTORY OF MORE THAN NINE SURGERIES, SPINA BIFIDA, OR REPEATED CATHERIZATIONS? NO LATEX RISK : ARE YOU FREQUENTLY EXPOSED TO LATEX PRODUCTS IN YOUR OCCUPATION?NO CAFFEINE CAFFEINE USE?YES COFFEE DAILY ADVANCE DIRECTIVE ADVANCE DIRECTIVE DISCUSSED WITH PATIENT:YES PT HAS NO ADVANCED DIRECTIVES, DECLINES INFORMATION OR ASSISTANCE AT THIS TIME QUAKER [id number] NONE MARITAL STATUS: . ALCOHOL SCREENING DID YOU HAVE A DRINK CONTAINING ALCOHOL IN THE PAST YEAR?YES HOW OFTEN DID YOU HAVE SIX OR MORE DRINKS ON ONE OCCASION IN THE PAST YEAR?NEVER (0 POINTS) HOW MANY DRINKS DID YOU HAVE ON A TYPICAL DAY WHEN YOU WERE DRINKING IN THE PAST YEAR?1 OR 2 (0 POINTS) HOW OFTEN DID YOU HAVE A DRINK CONTAINING ALCOHOL IN THE PAST YEAR?MONTHLY OR LESS (1 POINT) POINTS1 INTERPRETATIONNEGATIVE OCCUPATION: DISABLED. SEXUAL HX HAD SEX IN THE LAST 12 MONTHS (VAGINAL, ORAL, OR ANAL)?NO 12/25/2017 0900 REVIEWED LAS03/27/18 0902 REVIEWED BVREVIEWED WITH PT 06/27/2018 0930 LASREVIEWED WITH PT 10/30/18 1445 LAS. HOSPITALIZATION/MAJOR DIAGNOSTIC PROCEDURE L KNEE REPLACEMENT 07/05 VAGINAL DELIVERIES PNEUMONIA CERVICAL SPINE FUSION 1997 ATYPICAL CP 08/02 ACUTE RESP FAILURE 03/03 [facility]- COPD, CAP, PLEURISY 10/2018 A-FIB 12/2019 REVIEW OF SYSTEMS REVIEWED BY: PROVIDER: HARSH VALADEZ . CONSTITUTIONAL: ANY CHANGE IN YOUR MEDICAL CONDITION? YES, A-FIB AND DIABETES . CHILLS NO . FEVER NO . INFECTION: DO YOU HAVE NEW INFECTIONS? NO . DO YOU HAVE HISTORY OF MRSA? NO . MUSCULOSKELETAL: ANY NEW PATTERNS OF PAIN OR NUMBNESS? NO . GASTROENTEROLOGY: ANY NEW CHANGE IN BOWEL CONTROL? NO . GENITOURINARY: ANY NEW CHANGE IN BLADDER CONTROL? NO . IS THERE A CHANCE YOU COULD BE ? NO . HEMATOLOGY/LYMPH: DO YOU TAKE ANY BLOOD THINNERS? (FOR EXAMPLE- COUMADIN, PLAVIX, AGGRENOX, PLATEL, PRADAXA, OR XARELTO) YES, ELLIQUIS . WHEN WAS YOUR LAST DOSE? DATE: TIME: . NEUROLOGY: HAVE YOU FALLEN IN THE PAST 12 MONTHS? NO . ANY NEW EXTREMITY NUMBNESS OR WEAKNESS? NO . CARDIOLOGY: DO YOU HAVE A PACEMAKER OR DEFIBRILLATOR? NO . RESPIRATORY: HAVE YOU BEEN SICK IN THE PAST WEEK? NO . FEVER NO . FLU LIKE SYMPTOMS? NO . COUGH NO . INTEGUMENTARY: DO YOU HAVE ANY RASHES OR OPEN SORES? NO . ALLERGIC/IMMUNO: ARE YOU ALLERGIC TO IV DYE? NO . ANY NEW ALLERGIES? NO . PSYCHIATRIC: DO YOU HAVE THOUGHTS OF HURTING YOURSELF OR SOMEONE ELSE? NO . ARE YOU ABUSED, NEGLECTED, OR IN AN UNSAFE ENVIRONMENT? NO . ENDOCRINOLOGY: ARE YOU DIABETIC? YES . OTHER: DO YOU NEED ANY PRESCRIPTIONS? YES, CUCO, OXY . IF YES, PLEASE LIST: ____ . ANY NEW PROBLEMS WITH YOUR MEDICATIONS? NO . WHEN DID YOU LAST EAT? ____ . WHEN DID YOU LAST DRINK? ____ . WHAT DID YOU LAST DRINK? ____ . NAME OF PERSON DRIVING YOU HOME? ____ . DO YOU HAVE ANY OTHER QUESTIONS OR CONCERNS NO . VITAL SIGNS WT 208.2 LBS, HT 64", BMI 35.73 INDEX, BP 128/69 MM HG, HR 117 /MIN, RR 22 /MIN, TEMP 96.0 F, OXYGEN SAT % 89% 3L 02, SAFE IN ENV? (Y/N) Y, NA INITIALS AW 0948, REVIEWED BY: EM. EXAMINATION GENERAL EXAMINATION: GENERALNO ACUTE DISTRESS, WELL NOURISHED AND HYDRATED.IN W/C WITH O2. PSYCHAPPROPRIATE MOOD AND AFFECT . FACE:UNREMARKABLE. 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 BRINGS IN MEDICATIONS WHICH IS APPROPRIATE FOR WHAT WAS DISPENSED. RECENT URINE TOXICOLOGY REVIEWED. NO UNAUTHORIZED MEDICATIONS. NO ILLICIT SUBSTANCES AND PRESCRIBED MEDICATIONS WERE PRESENT. URINE TOX TODAY, RISKS OF NARCOTIC/OPIOD MEDICATIONS INCLUDES BUT IS NOT LIMITED TO RISK OF DEPENDANCE/DEVELOPMENT OF ADDICTION, MOOD DISTURBANCE AND DEPRESSION, OSTEOPOROSIS, HORMONAL AND LABIDAL CHANGES, RESPIRATORY DEPRESSION AND . PATIENT IS ADVISED NOT TO DRIVE OR DRINK ALCOHOL WHILE ON THESE MEDICATIONS. PROCEDURE CODES FA211 ESTABILISHED PATIENT [facility] CHARGE DISPOSITION & COMMUNICATION FOLLOW UP 3 MONTHS (REASON: MED MGMNT) ELECTRONICALLY SIGNED BY ALLYSON ONEIL ON 01/17/2020 AT 01:37 PM EDT DISCLAIMER : THIS IS A VISIT SUMMARY EXTRACTED FROM THE [employer] CHART. IT IS NOT A COPY OF THE [employer] PROGRESS NOTE. ELVIA
== END ==
LOC: M PAIN 09:30
PROVIDERS: ATTEND Nurse Practitioner Family
DX: M50.93 Cervical disc disorder, unspecified, cervicothoracic region (principal); Z79.84 Long term (current) use of oral hypoglycemic drugs; Z79.891 Long term (current) use of opiate analgesic; Z79.899 Other long term (current) drug therapy; Z87.891 Personal history of nicotine dependence

== ENCOUNTER 2020-01-22 12:02 | Inpatient (IN) | payer MEDICARE, MEDICAID ==
[~2020-01-22] VITALS: Ht 167.6 cm; Wt 96.2 kg
[2020-01-22] MEDS ORDERED: ASPIRIN 81 MG CHEW TABLET PO ONE (12:30)
[2020-01-22 12:45] LABS: VENOUS BASE EXCESS 6.9 (-2.0-2.0); VENOUS HCO3 36.6 MEQ/L (23.0-27.0); VENOUS O2 SATURATION 69.6 % (60.0-80.0); VENOUS PARTIAL PRESSURE CO2 79.7 mmHg (38.0-50.0); VENOUS PARTIAL PRESSURE O2 43.5 mmHg (30.0-50.0); VENOUS STANDARD HCO3 30.1 MEQ/L; VENOUS TOTAL CO2 39.1 MEQ/L (24.0-28.0)
[2020-01-22 12:46] LABS: HEMATOCRIT 41.6 % (36.0-47.0); HEMOGLOBIN 12.6 g/dl (12.0-15.5); MEAN CORPUSCULAR HGB CONC 30.3 g/dl (32.0-36.5); MEAN CORPUSCULAR VOLUME 95.9 fl (80.0-96.0); PLATELET COUNT, AUTOMATED 168 10^3/uL (150-450); RED BLOOD COUNT 4.34 10^6/uL (4.00-5.40); WHITE BLOOD COUNT 7.6 10^3/uL (4.0-10.0)
[2020-01-22] MEDS: COMBIVENT RESPIMAT 100-20MCG INHALER 4GM INH PRN ×3 (12:58→13:58)
--- NOTE | 2020-01-22 13:03 | REP ---
Portable chest x-ray: Single view. History: Dyspnea and cough. Comparison study: January 08, 2020. Findings: Monitoring electrodes and oxygen delivery tubing are seen. Heart is not felt to be enlarged. There is an infiltrate in the left base laterally. Some increased interstitial markings are seen in the right base. No evidence of pleural effusion. Impression: Infiltrate left base laterally. Mild interstitial fibrosis pattern. Electronically Signed by Byron Cunningham MD 01/22/2020 12:54 P
[2020-01-22 13:06] LABS: BASOPHILS 1 % (0-1); LYMPHOCYTES 13 % (16-44); MONOCYTES 5 % (0-5); NEUTROPHILS 80 % (28-66); NUCLEATED RED BLOOD CELL 2 % (0-0)
[2020-01-22 13:07] LABS: ANISOCYTOSIS 1+; PLATELET ESTIMATE NORMAL (NORMAL); POLYCHROMASIA 1+
[2020-01-22 13:26] LABS: ALBUMIN 2.9 GM/DL (3.2-5.2); ALT/SGPT 40 U/L (12-78); BILIRUBIN,DIRECT 0.2 MG/DL (0.0-0.2); BILIRUBIN,TOTAL 0.7 MG/DL (0.2-1.0); BLOOD UREA NITROGEN 21 MG/DL (7-18); CALCIUM LEVEL 8.1 MG/DL (8.5-10.1); CARBON DIOXIDE LEVEL 41 MEQ/L (21-32); CHLORIDE LEVEL 93 MEQ/L (98-107); CK-MB VALUE MASS < 1.0 NG/ML (<3.6); CPK CREATINE PHOSPHOKINASE 30 U/L (26-192); CREATININE FOR GFR 0.92 MG/DL (0.55-1.30); GLOMERULAR FILTRATION RATE > 60.0 (>51); GLUCOSE, FASTING 235 MG/DL (70-100); MB/CK RELATIVE INDEX 3.33 (< OR =4); NT-PRO BNP 1203 PG/ML (<125); POTASSIUM SERUM 3.2 MEQ/L (3.5-5.1); SODIUM LEVEL 139 MEQ/L (136-145); TOTAL PROTEIN 6.6 GM/DL (6.4-8.2); TROPONIN I < 0.02 NG/ML (< 0.10)
[2020-01-22] MEDS ORDERED: PIPERACILLIN/TAZOBACTAM SOD 4.5 GM in D5W MINI-BAG PLUS 50 ML IV ONE (13:45)
[2020-01-22] MEDS ORDERED: POTASSIUM CHLORIDE 10 MEQ SR TABLET PO ONE (13:45)
[2020-01-22] MEDS ORDERED: VANCOMYCIN HCL 1,000 MG, VIAL MATE ADAPTER 1 EACH in D5W 250 ML IV ONE (13:45)
[2020-01-22] MEDS ORDERED: ADV500INH INH (13:57)
[2020-01-22] MEDS ORDERED: ELIQ5TAB PO (14:34)
[2020-01-22] MEDS ORDERED: PRED20TA PO (14:40)
[2020-01-22] MEDS ORDERED: INSUDET SC (14:40)
[2020-01-22] MEDS ORDERED: GLUCTAB PO (14:40)
[2020-01-22] MEDS ORDERED: BISO5TAB14 PO (14:40)
[2020-01-22] MEDS ORDERED: DOXY100T PO (14:40)
--- NOTE | 2020-01-22 16:24 | HPEPDOC ---
General Date of Admission 01/22/20 Date of Service: Jan 22, 2020 Chief Complaint The patient is a 59-year-old female admitted with a reason for visit of Shortness Of Breath. History of Present Illness 59 year old female presents with progressively worsening shortness of breath. States symptoms started yesterday with increasing shortness of breath, associated with chest pain/pressure in center of her chest that lasted for an hour and resolved spontaneously. Denies fever/chills, N/V/D, abdominal pain, urinary complaints. Started on BIPAP here, ABG 7.28/79/43/36, CXR with LLL infiltrate, started on IV steroids and IV antibiotics. Home Medications Scheduled Ammonium Lactate (Ammonium Lactate) 12% Cream..g., 1 DOSE TOP DAILY, (Reported) APPLY TO FEET Apixaban (Eliquis) 5 Mg Tablet, 5 MG PO BID, (Reported) Atorvastatin Calcium (Atorvastatin Calcium) 20 Mg Tab, 20 MG PO QHS, (Reported) Bisoprolol Fumarate (Bisoprolol Fumarate) 5 Mg Tablet, 5 MG PO BID, (Reported) Dexlansoprazole (Dexilant) 60 Mg Cap, 60 MG PO DAILY, (Reported) Duloxetine Hcl (Duloxetine HCl) 60 Mg Capsule.dr, 60 MG PO DAILY, (Reported) Furosemide (Furosemide) 40 Mg Tablet, 40 MG PO DAILY, (Reported) Gabapentin (Gabapentin) 600 Mg Tab, 600 MG PO TID, (Reported) Insulin Detemir (Levemir) 100 Unit/1 Ml Vial, 20 UNITS SC QHS, (Reported) Levothyroxine Sodium (Levothyroxine Sodium) 25 Mcg Tablet, 25 MCG PO DAILY, (Reported) Metformin HCl (Glucophage Xr) 500 Mg Tab.er.24h, 1,000 MG PO DAILY, (Reported) Olanzapine (Olanzapine) 5 Mg Tablet, 5 MG PO DAILY, (Reported) Paroxetine HCl (Paroxetine HCl) 40 Mg Tab, 40 MG PO QHS, (Reported) Plecanatide (Trulance) 3 Mg Tablet, 3 MG PO QPM, (Reported) Prednisone (Prednisone) 20 Mg Tablet, 20 MG PO DAILY, (Reported) Salmeterol/Fluticasone (Advair 500-50 Diskus) 1 Each Blst.w.dev, 1 PUFF INH BID, (Reported) Umeclidinium [place] (Incruse Ellipta) 62.5 Mcg/Inh Inh, 1 PUFF INH DAILY, (Reported) TAKES AT NOON Scheduled PRN Albuterol Sulfate (Ventolin Hfa) 18 Gm Hfa.aer.ad, 2 PUFF INH Q4H PRN for SHORTNESS OF BREATH, (Reported) Oxycodone HCl (Oxycodone HCl) 5 Mg Tab, 5 MG PO BID PRN for PAIN, (Reported) Allergies Coded Allergies: No Known Allergies (Verified Allergy, Unknown, 12/09/19) A-FIB/CHADSVASC A-FIB History Current/History of A-Fib/PAF?: No Review of Systems Constitutional: Reports: Fatigue; Denies: Chills, Fever, Night Sweats Eyes: Denies: Pain, Vision change ENT: Denies: Head Aches, Ear Pain, Dysphagia Skin: Denies: Rash, Lesions, Breakdown Pulmonary: Reports: Dyspnea, Cough Cardiovascular: Denies: Chest Pain, Palpitations, Orthopnea, Paroxysmal Noc. Dyspnea, Lt Headedness Gastrointestinal: Denies: Nausea, Vomiting, Abdominal Pain, Diarrhea Genitourinary: Denies: Dysuria, Frequency, Incontinence, Retention Hematologic: Denies: Bruising, Bleeding Excessively Musculoskeletal: Denies: Neck Pain, Back Pain, Joint Pain, Muscle Pain, Spasms Neurological: Denies: Weakness, Numbness, Change in speech, Confusion Psych: Reports: Mood Normal; Denies: Depression, Memory Issues Physical Examination General Exam: Positive: Alert, No Acute Distress Eye Exam: Positive: PERRLA, Conjunctiva & lids normal, EOMI; Negative: Sclera icteric ENT Exam: Positive: Atraumatic, Mucous membr. moist/pink, Pharynx Normal Neck Exam: Positive: Supple; Negative: JVD, thyromegaly Chest Exam: Positive: Clear to auscultation, Normal air movement Heart Exam: Positive: Rate Normal, Regular Rhythm, Normal S1, Normal S2; Negative: Murmurs, Rubs Telemetry: Positive: No significant arrhythmia Abdomen Exam: Positive: Normal bowel sounds, Soft; Negative: Tenderness, Hepatospenomegaly Extremity Exam: Positive: Normal pulses; Negative: Clubbing, Cyanosis, Edema Skin Exam: Positive: Nl turgor and temperature; Negative: Breakdown, Lesion Neuro Exam: Positive: Normal Gait, Normal Speech, Cranial Nerves 3-12 NL, Reflexes 2+ Psych Exam: Positive: Mental status NL, Mood NL, Oriented x 3 Vital Signs Vital Signs Date Time Temp Pulse Resp B/P (MAP) Pulse Ox O2 Delivery O2 Flow Rate FiO2 01/22/20 14:30 123/62 (82) 01/22/20 14:17 126 01/22/20 14:02 97 Nasal Cannula 3.0 01/22/20 12:15 95.9 01/22/20 12:12 20 Laboratory Data Labs 24H Laboratory Tests 2 01/22/20 12:30: Immature Granulocyte % (Auto) , Neutrophils (%) (Auto) , Nucleated Red Blood Cells % (auto) 0.7H, Neutrophils 80H, Band Neutrophils 1, Lymphocytes (Manual) 13L, Monocytes (Manual) 5, Basophils (Manual) 1, Nucleated Red Blood Cells 2H, Polychromasia 1+, Anisocytosis 1+, Platelet Estimate NORMAL, Blood Gas Bicarbonate Standard 30.1, Venous Blood pH 7.280L, Venous Blood Partial Pressure CO2 79.7H, Venous Blood Partial Pressure O2 43.5, Venous Blood Total Carbon Dioxide 39.1H, Venous Blood HCO3 36.6H, Venous Blood Oxygen Saturation 69.6, Venous Blood Base Excess 6.9H, Anion Gap 5L, Glomerular Filtration Rate > 60.0, Calcium Level 8.1L, Total Bilirubin 0.7, Direct Bilirubin 0.2, Aspartate Amino Transf (AST/SGOT) 22, Alanine Aminotransferase (ALT/SGPT) 40, Alkaline Phospha tase 102, Total Creatine Kinase 30, Creatine Kinase MB < 1.0, Creatine Kinase MB Relative Index 3.33, Troponin I < 0.02, QD-Gmn-I-Type Natriuretic Peptide 1203H, Total Protein 6.6, Albumin 2.9L, Albumin/Globulin Ratio 0.78L, Thyroid Stimulating Hormone (TSH) 3.000 CBC/BMP Laboratory Tests 01/22/20 12:30 Microbiology Microbiology 01/22/20 Blood Culture, Received Pending 01/22/20 Respiratory Panel (PCR) - Final, Complete Human Metapneumovirus 01/22/20 Blood Culture, Received Pending Assessment/Plan 1. acute hypercapnic respiratory failure secondary to COPD exacerbation - admit to PCU. - IV steroids, duonebs, IV zosyn started in ED. - on BIPAP, repeat ABG. - consider pulmonary consult. - respiratory panel positive for HMN virus. 2. HTN - continue bisoprolol. 3. chronic LE edema - continue lasix. 4. hypothyroidism - continue levothyroxine. 5. depression - continue duloxetine, paroxetine. 6. DM - FSBS, SSI coverage. Plan / VTE VTE Prophylaxis Ordered?: Yes BREE LYON MD Jan 22, 2020 16:24
[2020-01-22] MEDS ORDERED: ACETAMINOPHEN TAB 650MG DOSE (2X325MG) PO PRN (16:30)
[2020-01-22] MEDS ORDERED: GLUCOSE 4 GM CHEW TABLET PO PRN (16:45)
[2020-01-22] MEDS ORDERED: ALBUTEROL 90 MCG/ACT 8GM HFA INHALER INH PRN (16:45)
[2020-01-22] MEDS ORDERED: GLUCAGON FOR INJ 1 MG VIAL (J1610) SC PRN (16:45)
[2020-01-22] MEDS ORDERED: DEXTROSE 50% 50 ML SYRINGE IV PRN (16:45)
[2020-01-22 17:15] VITALS: BP 136/80
[2020-01-22] MEDS: methylPREDNISolone INJ 125 MG/2 ML VIAL (J2930) IV SCH (17:41)
[2020-01-22] MEDS: HumaLOG INSULIN (NovoLOG) PER UNIT SC SCH ×2 (17:59→21:27)
[2020-01-22] MEDS ORDERED: LevoFLOXacin IV 500 MG in IV 1 EA IV SCH (18:00)
[2020-01-22] MEDS ORDERED: SLF 3 ML SYR IV PRN (18:15)
--- NOTE | 2020-01-22 19:43 | ECGEPIP ---
[facility] - ED Test Date: 2020-01-22 Pat Name: ARTHUR ALSTON Department: Room: - Gender: Female Ground Layer: JLee Ann : 1960 Requested By: GILLES Livingston Order Number: [id number] Reading MD: Loyda Kerns Measurements Intervals [place] Rate: 129 P: [place]: 0 QRS: 141 QRSD: 69 T: 148 QT: 303 QTc: 445 Interpretive Statements SINUS TACHYCARDIA WITH PACS POSSIBLE RIGHT VENTRICULAR HYPERTROPHY NSTTW abnormalities Electronically Signed on 01-22-2020 19:42:58 EDT by Loyda Kerns
[2020-01-22 20:00] VITALS: BP 133/65
[2020-01-22] MEDS: IPRATROPIUM 0.5MG/ALBUTEROL 2.5MG INH SOL UD 3ML (DUONEB)(J7620) NEB SCH ×2 (20:00→23:48)
[2020-01-22] MEDS: APIXABAN 5 MG TAB (ELIQUIS) PO SCH (20:19)
[2020-01-22] MEDS: ATORVASTATIN 20 MG TAB PO SCH (20:19)
[2020-01-22] MEDS: PARoxetine 20 MG TAB PO SCH (20:20)
[2020-01-22] MEDS: GABAPENTIN 300 MG CAP PO SCH (20:20)
[2020-01-22] MEDS: SLF 3 ML SYR IV SCH (20:22)
[2020-01-22] MEDS: bisoproloL fumarate 5 MG TAB PO SCH (20:22)
[2020-01-22] MEDS: ADVAIR HFA 230/21MCG INHALER INH SCH (20:29)
[2020-01-22] MEDS: oxyCODONE 5MG TAB PO PRN (21:28)
[2020-01-23] VITALS (28 sets, daily range): BP systolic 115–161; BP diastolic 67–87; O2SAT 79–100
[2020-01-23] MEDS: methylPREDNISolone INJ 125 MG/2 ML VIAL (J2930) IV SCH ×2 (00:04→08:17)
[2020-01-23] MEDS: IPRATROPIUM 0.5MG/ALBUTEROL 2.5MG INH SOL UD 3ML (DUONEB)(J7620) NEB SCH ×6 (04:14→21:56)
[2020-01-23] MEDS: LEVOTHYROXINE 25MCG TABLET (0.025MG) PO SCH (05:03)
[2020-01-23] MEDS: SLF 3 ML SYR IV SCH ×3 (05:03→20:29)
[2020-01-23 05:16] LABS: ALBUMIN 2.6 GM/DL (3.2-5.2); ALT/SGPT 34 U/L (12-78); BILIRUBIN,TOTAL 0.5 MG/DL (0.2-1.0); BLOOD UREA NITROGEN 21 MG/DL (7-18); CALCIUM LEVEL 7.9 MG/DL (8.5-10.1); CARBON DIOXIDE LEVEL 34 MEQ/L (21-32); CHLORIDE LEVEL 94 MEQ/L (98-107); CREATININE FOR GFR 0.99 MG/DL (0.55-1.30); GLOMERULAR FILTRATION RATE > 60.0 (>51); GLUCOSE, FASTING 282 MG/DL (70-100); POTASSIUM SERUM 3.7 MEQ/L (3.5-5.1); SODIUM LEVEL 138 MEQ/L (136-145); TOTAL PROTEIN 6.9 GM/DL (6.4-8.2)
[2020-01-23 05:45] LABS: ABG BASE EXCESS 10.6 (-2.0-2.0); ABG O2 SATURATION 92.5 % (95.0-99.0); ABG PARTIAL PRESSURE CO2 58.3 mmHg (35.0-45.0); ABG PARTIAL PRESSURE O2 67.6 mmHg (75.0-100.0); ABG STANDARD HCO3 34.3 MEQ/L (22.0-26.0); ABG TOTAL CO2 38.8 MEQ/L (22.0-29.0)
[2020-01-23] MEDS: ADVAIR HFA 230/21MCG INHALER INH SCH ×2 (07:11→20:24)
[2020-01-23] MEDS: APIXABAN 5 MG TAB (ELIQUIS) PO SCH ×2 (08:18→20:24)
[2020-01-23] MEDS: GABAPENTIN 300 MG CAP PO SCH ×3 (08:18→20:24)
[2020-01-23] MEDS: DULoxetine 30 MG CAP (CYMBALTA) PO SCH (08:18)
[2020-01-23] MEDS: FUROSEMIDE 40 MG TAB PO SCH (08:19)
[2020-01-23] MEDS: bisoproloL fumarate 5 MG TAB PO SCH ×2 (08:19→20:26)
[2020-01-23] MEDS: HumaLOG INSULIN (NovoLOG) PER UNIT SC SCH ×4 (08:21→20:32)
--- NOTE | 2020-01-23 08:38 | IPNPDOC ---
Subjective Date Seen The patient was seen on 01/23/20. Subjective Chief Complaint/HPI Seen and examined at bedside, awake and alert, shortness of breath improved today, denies chest pain/pressure. General: Reports: Normal Appetite; Denies: Chills, Night Sweats, Fatigue, Malaise Constitutional: Denies: Chills, Fever, Night Sweats Eyes: Denies: Pain, Vision change ENT: Denies: Head Aches, Ear Pain, Dysphagia Skin: Denies: Rash, Lesions, Breakdown Pulmonary: Reports: Cough; Denies: Dyspnea Cardiovascular: Denies: Chest Pain, Palpitations, Orthopnea, Paroxysmal Noc. Dyspnea, Lt Headedness Gastrointestinal: Denies: Nausea, Vomiting, Abdominal Pain, Diarrhea, Constipation Genitourinary: Denies: Dysuria, Frequency, Incontinence, Retention Hematologic: Denies: Bruising, Bleeding Excessively Musculoskeletal: Denies: Neck Pain, Back Pain, Joint Pain, Muscle Pain, Spasms Neurological: Denies: Weakness, Numbness, Change in speech, Confusion Psych: Reports: Mood Normal; Denies: Depression, Memory Issues Objective Physical Examination General Exam: Positive: Alert, No Acute Distress Eye Exam: Positive: PERRLA, Conjunctiva & lids normal, EOMI; Negative: Sclera icteric ENT Exam: Positive: Atraumatic, Mucous membr. moist/pink, Pharynx Normal Neck Exam: Positive: Supple; Negative: JVD, thyromegaly Chest Exam: Positive: Clear to auscultation, Normal air movement, Diminished Heart Exam: Positive: Rate Normal, Regular Rhythm, Normal S1, Normal S2; Negative: Murmurs, Rubs Telemetry: Positive: No significant arrhythmia Abdomen Exam: Positive: Normal bowel sounds, Soft; Negative: Tenderness, Hepatospenomegaly Female Exam: Positive: Nl Ext Genitalia; Negative: Lesions, Discharge, Odor, Tenderness Extremity Exam: Positive: Normal pulses; Negative: Clubbing, Cyanosis, Edema Skin Exam: Positive: Nl turgor and temperature; Negative: Breakdown, Lesion Neuro Exam: Positive: Normal Gait, Normal Speech, Cranial Nerves 3-12 NL, Reflexes 2+ Psych Exam: Positive: Mental status NL, Mood NL, Oriented x 3 Assessment /Plan Assessment 1. acute hypercapnic respiratory failure secondary to COPD exacerbation - IV steroids, duonebs, IV zosyn started in ED. - pulmonary consult Dr. Null. - respiratory panel positive for HMN virus. 2. HTN - continue bisoprolol. 3. chronic LE edema - continue lasix. 4. hypothyroidism - continue levothyroxine. 5. depression - continue duloxetine, paroxetine. 6. DM - FSBS, SSI coverage. Plan/VTE VTE Prophylaxis Ordered?: Yes VS, I&O, 24H, Fishbone Vital Signs/I&O Vital Signs Date Time Temp Pulse Resp B/P (MAP) Pulse Ox O2 Delivery O2 Flow Rate FiO2 01/23/20 08:00 95.9 107 20 138/71 (93) 93 High Flow Cannula 8.0 I&O- Last 24 Hours up to 6 AM 01/23/20 06:00 Intake Total 950 ml Output Total 800 ml Balance 150 ml Laboratory Data 24H LABS Laboratory Tests 2 01/22/20 12:30: Immature Granulocyte % (Auto) , Neutrophils (%) (Auto) , Nucleated Red Blood Cells % (auto) 0.7H, Neutrophils 80H, Band Neutrophils 1, Lymphocytes (Manual) 13L, Monocytes (Manual) 5, Basophils (Manual) 1, Nucleated Red Blood Cells 2H, Polychromasia 1+, Anisocytosis 1+, Platelet Estimate NORMAL, Blood Gas Bicarbonate Standard 30.1, Venous Blood pH 7.280L, Venous Blood Partial Pressure CO2 79.7H, Venous Blood Partial Pressure O2 43.5, Venous Blood Total Carbon Dioxide 39.1H, Venous Blood HCO3 36.6H, Venous Blood Oxygen Saturation 69.6, Venous Blood Base Excess 6.9H, Anion Gap 5L, Glomerular Filtration Rate > 60.0, Calcium Level 8.1L, Total Bilirubin 0.7, Direct Bilirubin 0.2, Aspartate Amino Transf (AST/SGOT) 22, Alanine Aminotransferase (ALT/SGPT) 40, Alkaline Phosphatase 102, Total Creatine Kinase 30, Creatine Kinase MB < 1.0, Creatine Kinase MB Relative Index 3.33, Troponin I < 0.02, NN-Mlx-N-Type Natriuretic Peptide 1203H, Total Protein 6.6, Albumin 2.9L, Albumin/Globulin Ratio 0.78L, Thyroid Stimulating Hormone (TSH) 3.000 01/22/20 17:40: Bedside Glucose (Misc Panel) 237H 01/22/20 20:17: Bedside Glucose (Misc Panel) 311H 01/23/20 04:19: Anion Gap 10, Glomerular Filtration Rate > 60.0, Calcium Level 7.9L, Total Bilirubin 0.5, Aspartate Amino Transf (AST/SGOT) 15, Alanine Aminotransferase (ALT/SGPT) 34, Alkaline Phosphatase 84, Total Protein 6.9, Albumin 2.6L, Albumin/Globulin Ratio 0.60L 01/23/20 05:37: Blood Gas Bicarbonate Standard 34.3H, Arterial Blood pH 7.420, Arterial Blood Partial Pressure CO2 58.3H, Arterial Blood Partial Pressure O2 67.6L, Arterial Blood Total CO2 38.8H, Arterial Blood HCO3 37.0H, Arterial Blood Base Excess 10.6H, Arterial Blood Oxygen Saturation 92.5L CBC/BMP Laboratory Tests 01/22/20 12:30 01/23/20 04:19 Microbiology Microbiology 01/22/20 Blood Culture, Received Pending 01/22/20 Respiratory Panel (PCR) - Final, Complete Human Metapneumovirus 01/22/20 Blood Culture, Received Pending BREE LYON MD Jan 23, 2020 08:38
[2020-01-23] MEDS ORDERED: ENOXAPARIN 40 MG/0.4 ML SYRINGE (J1650) SC SCH (09:00)
[2020-01-23] MEDS ORDERED: FUROSEMIDE 20 MG/2 ML VIAL (J1940) IV ONE (09:30)
[2020-01-23] MEDS: OLANZapine 5 MG TAB PO SCH (09:35)
[2020-01-23 09:42] LABS: BASO % 0.4 % (0.0-1.0); HEMATOCRIT 33.3 % (36.0-47.0); HEMOGLOBIN 10.5 g/dl (12.0-15.5); LYMPH # 0.5 10^3/uL (1.5-5.0); LYMPH % 9.1 % (24.0-44.0); MEAN CORPUSCULAR HEMOGLOBIN 29.5 pg (27.0-33.0); MEAN CORPUSCULAR HGB CONC 31.5 g/dl (32.0-36.5); MEAN CORPUSCULAR VOLUME 93.5 fl (80.0-96.0); MONO # 0.3 10^3/uL (0.0-0.8); MONO % 5.2 % (0.0-5.0); NEUTROPHILS # 4.4 10^3/uL (1.5-8.5); NEUTROPHILS % 80.8 % (36.0-66.0); PLATELET COUNT, AUTOMATED 157 10^3/uL (150-450); RED BLOOD COUNT 3.56 10^6/uL (4.00-5.40); WHITE BLOOD COUNT 5.4 10^3/uL (4.0-10.0)
[2020-01-23 10:09] LABS: BLOOD UREA NITROGEN 21 MG/DL (7-18); CALCIUM LEVEL 8.2 MG/DL (8.5-10.1); CARBON DIOXIDE LEVEL 36 MEQ/L (21-32); CHLORIDE LEVEL 94 MEQ/L (98-107); CREATININE FOR GFR 0.74 MG/DL (0.55-1.30); GLOMERULAR FILTRATION RATE > 60.0 (>51); GLUCOSE, FASTING 321 MG/DL (70-100); POTASSIUM SERUM 3.6 MEQ/L (3.5-5.1); SODIUM LEVEL 137 MEQ/L (136-145)
--- NOTE | 2020-01-23 11:10 | CR ---
DATE OF CONSULTATION: 01/23/2020 HISTORY OF PRESENT ILLNESS Ms. Reza is a 60-year-old female with history of chronic obstructive pulmonary disease (COPD) with chronic hypoxemic and hypercarbic respiratory failure on nasal cannula oxygen supplementation 3-4 liters at baseline and chronic prednisone, history of chronic pain with opioid dependence, obesity, diabetes who presented with complaints of increased shortness of breath. The patient stated her symptoms have started a week ago where she had presented to the emergency department with complaints of worsening shortness of breath and dyspnea. She stated she was discharged from the ED but her breathing had worsened on the day of presentation to the hospital and so she presented again with the complaint of shortness of breath. She denied noticing any worsening cough or wheezing. She did have some chest discomfort initially which has since resolved. She denied noticing any worsening abdominal distension or increasing lower extremity edema. She is on Lasix for a home medication, which she states she has been compliant with, although she does feel that her urine output may not have been as much as usual. She also reports she has been compliant with her chronic prednisone at 10 mg daily. She denies taking any extra doses of her prednisone. The patient has a history since August 2019 of recurrent hospitalizations and admissions for acute COPD exacerbation, as well as acute on chronic hypercarbic respiratory failure. She was admitted in October with a COPD exacerbation and with her acute on chronic hypercarbic respiratory failure which was treated with BiPap with improvement in her symptoms. She then had two admissions in November for COPD exacerbation and acute on chronic hypercarbic respiratory failure, as well as two admissions in December for the same complaint. During these admissions, the patient was noted to have chronic hypercarbic respiratory failure and occasionally would require BiPap as well. She was due to follow up with her front line supervisor for testing to see if she would require noninvasive positive pressure ventilation given her COPD with recurrent admissions; however, she has been unable to follow up in our office due to her recurrent hospitalizations. PAST MEDICAL AND SURGICAL HISTORY : 1. COPD on chronic prednisone, chronic hypoxemic respiratory failure and chronic hypercarbic respiratory failure on 3-4 liters a minute of nasal cannula oxygen. 2. Chronic neck pain on chronic opioids. 3. Depression. 4. Hyperlipidemia. 5. Hypertension. 6. Gastroesophageal reflux disease. 7. Migraine headaches. 8. Essential tremor. 9. Cervical spine fusion. 10. Left knee replacement. 11. Tubal ligation. 12. Hypothyroidism. HOME MEDICATIONS: - atorvastatin - Dexilant - fluoxetine - furosemide 40 mg p.o. daily - gabapentin - levothyroxine - olanzapine - paroxetine - prednisone 10 mg daily - Advair - Incruse - Chantix - albuterol - oxycodone ALLERGIES: NO KNOWN DRUG ALLERGIES. SOCIAL HISTORY: The patient is a former smoker. Denies any recent travel or sick contacts. FAMILY HISTORY: Father with history of cirrhosis. Mother with history of colon cancer. PHYSICAL EXAMINATION: Temperature 95.9, pulse 107, respirations 20, blood pressure 138/71, O2 sat is 93% on 8 liters a minute. In 1.3 liters, out 800 mL. General: The patient is an obese female and is lying in bed, appears comfortable, is able to speak in complete sentences and does not appear to be in respiratory distress. HEENT: Normocephalic, atraumatic. Pupils are reactive to light bilaterally. There is moist mucous membranes. Neck is thick. Unable to evaluate for jugular venous distention (JVD). Trachea is midline. Cardiovascular: Tachycardic. Regular rate and rhythm. Normal S1, S2. Unable appreciate any murmurs with somewhat distant heart sounds. Pulmonary: There is diminished breath sounds bilaterally with crackles at the bases but no significant wheezing or rhonchi. Abdomen is obese, soft, appears mildly distended but is nontender. Extremities: There is trace edema in the bilateral lower extremities with tenderness to palpation mostly along her right [place]. LABORATORIES: WBC 7.6, hemoglobin 12.6, platelets are 168. Chemistry: Sodium is 138, potassium 3.7, chloride is 94, bicarbonate 34, BUN 21, creatinine 0.99, glucose is 282, BNP increased to 1203 was 115 on her last admission in December. MICROBIOLOGY: Respiratory panel positive for human metapneumovirus. IMAGING STUDIES: Chest x-ray shows some interstitial fibrosis pattern with increased interstitial markings as well and possible cephalization of the pulmonary vasculature. There is a new left lower lobe infiltrate. ABG this morning pH 7.420, pCO2 of 58.3, pO2 of 67.6. Initial VBG with pH of 7.280 and pCO2 of 79.7. ASSESSMENT AND PLAN: Ms. Reza is a 60-year-old female with a history of COPD on chronic prednisone with chronic hypoxemic and hypercarbic respiratory failure on 3 liters nasal cannula oxygen at baseline with a history in the past few months of recurrent hospitalizations, about two a month for the past 2-3 months. Patient's recurrent hospitalizations are usually in the setting of acute COPD exacerbation complicated as well with acute on chronic hypercarbic respiratory failure, occasionally requiring BiPap. She was recommended to followup as an outpatient for evaluation for a noninvasive positive pressure ventilator; however, the patient has been unable to follow up in the office due to her recurrent hospitalizations. She presents now again with worsening shortness of breath and was admitted for possible acute COPD exacerbation in the setting of human metapneumovirus. Her chest x-ray also showed a focal opacity in the left lower lobe suspicious for possible pneumonia. The patient was also found have increased BNP from her baseline and suspect she does have a component of pulmonary edema as well contributing to her symptoms. - We will continue with Solu-Medrol 40 mg q. 8 and continue with DuoNebs for her acute exacerbation. - Would continue with broad-spectrum antibiotics given her recurrent hospitalizations with vancomycin and Zosyn. Would discontinue the Levaquin as she does not have a history of Pseudomonas and would place her instead on doxycycline for atypical coverage. Would check a procalcitonin to protective signal repairer helper in de-escalation of antibiotics and check a sputum culture. - We will continue with her pulmonary medications of Lasix 40 mg p.o. daily, but we will give additional IV dose of Lasix 20 mg today and will continue to monitor her ins and outs. With her increased BNP, suspect she may need additional p.r.n. doses of Lasix to optimize her fluid status. Suspect this is contributing to her acute worsening of her chronic hypoxemic respiratory failure. - We will continue nasal cannula oxygen supplementation and wean down to maintain and oxygen saturation of 88-92%. - We will followup with Myesha about starting the patient on a home ventilator given her chronic hypercarbic respiratory failure and recurrent exacerbations secondary to her end-stage COPD on chronic steroids. Patient would benefit from a NIPPV nightly for the rest of her life. Deep vein thrombosis (DVT) prophylaxis. Lovenox. Code status: FULL CODE. MTDD
[2020-01-23] MEDS ORDERED: VANCOMYCIN HCL IV SCH (14:30)
[2020-01-23] MEDS ORDERED: FLUID PLACE HOLDER IV SCH (14:30)
--- NOTE | 2020-01-23 15:08 | PHACANCOPD ---
PHARMACY VANCOMYCIN DOSING Pt Demographics Demographics Patient Age:60 , Weight:96.100 , Gender: female Adjusted Body Weight Date: 01/23/20, Adjusted Body Weight: [74] Kg Events Past 24 Hours Events Past 24 Hours: NO: Dialysis, Diuretic Therapy, Change in CrCl, Fever, Elevation in WBC, Pending Diagnostics, Pending Procedures, Other Vancomycin Vancomycin indication: PNA Vancomycin Target Ranges: 15-20 mcg/ml Vancomycin Load Y/N: Yes Load Dose Date Time Vancomycin Load Dose: 1.5G Date: 01/23/20 Time: 1700 Vancomycin Dose Date: 01/23/20. Current Vancomycin Dose: [750MG IV Q8H] Intermittent Dosing?: No Labs Labs Item Value Date Time Creatinine 0.92 MG/DL 01/22/20 1230 Creatinine 0.99 MG/DL 01/23/20 0419 Creatinine 0.74 MG/DL 01/23/20 0929 White Blood Count 5.4 10^3/uL 01/23/20 0929 Micro Microbiology 01/22/20 Blood Culture - Preliminary, Resulted No growth after 24 hours . All specim... 01/22/20 Respiratory Panel (PCR) - Final, Complete Human Metapneumovirus 01/22/20 Blood Culture - Preliminary, Resulted No growth after 24 hours . All specim... Creatinine Clearance Date:01/23/20. Creatinine Clearance: [~95ML/MIN ADJUSTED]. Pending Labs VANCOMYCIN TROUGH 01/23 @ 16:00, MRSA PCR Assessment and Plan Maintaining Current Dose?: Yes Reason for dose change: No Dose Change Pharmacist Note Pharmacist Note Date: 01/23/20. Pharmacist note: Pt is a 60 year old female being treated for Pneumonia goal trough 15-20mcg/ml. The patient received 1g iv in the ER 01/23/20 @14. The patient will receive 1.5g IV 01/23 @ 17:00. Maintenance therapy will consist of 750mg iv every 8 hours. A mrsa pcr is scheduled and a vancomycin trough is scheduled for 01/24/20 @16:00. We will continue to monitor and adjust the dose as needed. [facility] Jan 23, 2020 15:08
[2020-01-23] MEDS: PIPERACILLIN/TAZOBACTAM SOD 3.375 GM in D5W MINI-BAG PLUS 50 ML IV SCH ×2 (15:56→21:23)
[2020-01-23] MEDS ORDERED: VANCOMYCIN HCL 1,000 MG, VIAL MATE ADAPTER 1 EACH in D5W 250 ML IV ONE (17:00)
[2020-01-23] MEDS: methylPREDNISolone INJ 40 MG/1 ML VIAL (J2920) IV SCH (17:35)
[2020-01-23] MEDS: DOXYCYCLINE HYCLATE 100 MG in D5W MINI-BAG PLUS 100 ML IV SCH (17:35)
[2020-01-23] MEDS ORDERED: VANCOMYCIN HCL 500 MG in D5W MINI-BAG PLUS 100 ML IV ONE (18:00)
[2020-01-23] MEDS: ATORVASTATIN 20 MG TAB PO SCH (20:24)
[2020-01-23] MEDS: PARoxetine 20 MG TAB PO SCH (20:25)
[2020-01-23] MEDS ORDERED: LEVEMIR (INSULIN DETEMIR) 1 UNITS/0.01ML SC SCH (21:00)
[2020-01-23] MEDS ORDERED: VANCOMYCIN HCL 750 MG, VIAL MATE ADAPTER 1 EACH in D5W 250 ML IV SCH (23:00)
[2020-01-24] VITALS (23 sets, daily range): BP systolic 108–134; BP diastolic 63–80; O2SAT 86–98
[2020-01-24] MEDS: VANCOMYCIN HCL 750 MG, VIAL MATE ADAPTER 1 EACH in D5W 250 ML IV SCH ×2 (00:24→09:20)
[2020-01-24] MEDS: methylPREDNISolone INJ 40 MG/1 ML VIAL (J2920) IV SCH ×2 (00:25→08:02)
[2020-01-24] MEDS: PIPERACILLIN/TAZOBACTAM SOD 3.375 GM in D5W MINI-BAG PLUS 50 ML IV SCH ×2 (02:49→08:05)
[2020-01-24] MEDS: DOXYCYCLINE HYCLATE 100 MG in D5W MINI-BAG PLUS 100 ML IV SCH (03:59)
[2020-01-24] MEDS: IPRATROPIUM 0.5MG/ALBUTEROL 2.5MG INH SOL UD 3ML (DUONEB)(J7620) NEB SCH ×6 (04:08→23:44)
[2020-01-24 04:35] LABS: BASO % 0.3 % (0.0-1.0); HEMATOCRIT 32.1 % (36.0-47.0); HEMOGLOBIN 10.2 g/dl (12.0-15.5); LYMPH # 0.6 10^3/uL (1.5-5.0); LYMPH % 8.5 % (24.0-44.0); MEAN CORPUSCULAR HEMOGLOBIN 29.7 pg (27.0-33.0); MEAN CORPUSCULAR HGB CONC 31.8 g/dl (32.0-36.5); MEAN CORPUSCULAR VOLUME 93.3 fl (80.0-96.0); MONO # 0.3 10^3/uL (0.0-0.8); MONO % 4.2 % (0.0-5.0); NEUTROPHILS # 5.7 10^3/uL (1.5-8.5); NEUTROPHILS % 83.6 % (36.0-66.0); PLATELET COUNT, AUTOMATED 155 10^3/uL (150-450); RED BLOOD COUNT 3.44 10^6/uL (4.00-5.40); WHITE BLOOD COUNT 6.9 10^3/uL (4.0-10.0)
[2020-01-24 04:55] LABS: BLOOD UREA NITROGEN 16 MG/DL (7-18); CALCIUM LEVEL 8.5 MG/DL (8.5-10.1); CARBON DIOXIDE LEVEL 39 MEQ/L (21-32); CHLORIDE LEVEL 90 MEQ/L (98-107); CREATININE FOR GFR 0.83 MG/DL (0.55-1.30); GLOMERULAR FILTRATION RATE > 60.0 (>51); GLUCOSE, FASTING 321 MG/DL (70-100); POTASSIUM SERUM 3.6 MEQ/L (3.5-5.1); SODIUM LEVEL 133 MEQ/L (136-145)
[2020-01-24] MEDS: SLF 3 ML SYR IV SCH ×3 (06:00→20:44)
[2020-01-24] MEDS: LEVOTHYROXINE 25MCG TABLET (0.025MG) PO SCH (06:00)
[2020-01-24] MEDS ORDERED: DEXTROSE 50% 50 ML SYRINGE IV PRN ×2 (07:45→08:00)
[2020-01-24] MEDS ORDERED: GLUCAGON FOR INJ 1 MG VIAL (J1610) SC PRN ×2 (07:45→08:00)
[2020-01-24] MEDS ORDERED: GLUCOSE 4 GM CHEW TABLET PO PRN ×2 (07:45→08:00)
[2020-01-24] MEDS: ADVAIR HFA 230/21MCG INHALER INH SCH ×2 (07:58→19:52)
[2020-01-24] MEDS: DULoxetine 30 MG CAP (CYMBALTA) PO SCH (08:02)
[2020-01-24] MEDS: APIXABAN 5 MG TAB (ELIQUIS) PO SCH ×2 (08:03→20:44)
[2020-01-24] MEDS: GABAPENTIN 300 MG CAP PO SCH ×3 (08:03→20:43)
[2020-01-24] MEDS: FUROSEMIDE 40 MG TAB PO SCH (08:03)
[2020-01-24] MEDS: bisoproloL fumarate 5 MG TAB PO SCH ×2 (08:04→20:43)
[2020-01-24] MEDS: OLANZapine 5 MG TAB PO SCH (08:45)
[2020-01-24] MEDS: HumaLOG INSULIN (NovoLOG) PER UNIT SC SCH ×5 (08:45→18:07)
[2020-01-24] MEDS: oxyCODONE 5MG TAB PO PRN ×2 (08:46→20:40)
--- NOTE | 2020-01-24 10:11 | IPNPDOC ---
Subjective Date Seen The patient was seen on 01/24/20. Subjective Chief Complaint/HPI Seen and examined at bedside, awake and alert, states shortness of breath has improved, feels near baseline. General: Reports: Normal Appetite; Denies: Chills, Night Sweats, Fatigue, Malaise Constitutional: Denies: Chills, Fever, Night Sweats Eyes: Denies: Pain, Vision change ENT: Denies: Head Aches, Ear Pain, Dysphagia Skin: Denies: Rash, Lesions, Breakdown Pulmonary: Denies: Dyspnea, Cough Cardiovascular: Denies: Chest Pain, Palpitations, Orthopnea, Paroxysmal Noc. Dyspnea, Lt Headedness Gastrointestinal: Denies: Nausea, Vomiting, Abdominal Pain, Diarrhea, Con stipation Genitourinary: Denies: Dysuria, Frequency, Incontinence, Retention Hematologic: Denies: Bruising, Bleeding Excessively Musculoskeletal: Denies: Neck Pain, Back Pain, Joint Pain, Muscle Pain, Spasms Neurological: Denies: Weakness, Numbness, Change in speech, Confusion Psych: Reports: Mood Normal; Denies: Depression, Memory Issues Objective Physical Examination General Exam: Positive: Alert, No Acute Distress Eye Exam: Positive: PERRLA, Conjunctiva & lids normal, EOMI; Negative: Sclera icteric ENT Exam: Positive: Atraumatic, Mucous membr. moist/pink, Pharynx Normal Neck Exam: Positive: Supple; Negative: JVD, thyromegaly Chest Exam: Positive: Clear to auscultation, Normal air movement, Diminished Heart Exam: Positive: Rate Normal, Regular Rhythm, Normal S1, Normal S2; Negative: Murmurs, Rubs Telemetry: Positive: No significant arrhythmia Abdomen Exam: Positive: Normal bowel sounds, Soft; Negative: Tenderness, Hepatospenomegaly Female Exam: Positive: Nl Ext Genitalia; Negative: Lesions, Discharge, Odor, Tenderness Extremity Exam: Positive: Normal pulses; Negative: Clubbing, Cyanosis, Edema Skin Exam: Positive: Nl turgor and temperature; Negative: Breakdown, Lesion Neuro Exam: Positive: Normal Gait, Normal Speech, Cranial Nerves 3-12 NL, Reflexes 2+ Psych Exam: Positive: Mental status NL, Mood NL, Oriented x 3 Assessment /Plan Assessment 1. acute hypercapnic respiratory failure secondary to COPD exacerbation - PO steroids, duonebs. - seen by pulmonary Dr. Chaka. - respiratory panel positive for HMN virus. - procalcitonin normal, will d/c antibiotics. - repeat CXR today. - d/w CM, will need evaluation with Myesha regarding starting home ventilator due to recurrent exacerbations from end stage COPD. 2. HTN - continue bisoprolol. 3. chronic LE edema - continue lasix, IV prn. 4. hypothyroidism - continue levothyroxine. 5. depression - continue duloxetine, paroxetine. 6. DM - Restarted on basal/bolus protocol. - FSBS AC/HS, SSI coverage. Plan/VTE VTE Prophylaxis Ordered?: Yes VS, I&O, 24H, Fishbone Vital Signs/I&O Vital Signs Date Time Temp Pulse Resp B/P (MAP) Pulse Ox O2 Delivery O2 Flow Rate FiO2 01/24/20 09:16 18 94 Nasal Cannula 4.0 01/24/20 08:04 109 108/64 01/24/20 08:00 97.3 I&O- Last 24 Hours up to 6 AM 01/24/20 06:00 Intake Total 1560 ml Output Total 1600 ml Balance -40 ml Laboratory Data 24H LABS Laboratory Tests 2 01/23/20 11:36: Bedside Glucose (Misc Panel) 282H 01/23/20 14:50: 01/23/20 15:49: Methicillin-Resist S.aureus DNA PCR NOT DETECTED 01/23/20 17:05: Bedside Glucose (Misc Panel) 258H 01/23/20 20:28: Bedside Glucose (Misc Panel) 335H 01/24/20 04:11: Immature Granulocyte % (Auto) 3.4H, Neutrophils (%) (Auto) 83.6H, Lymphocytes (%) (Auto) 8.5L, Monocytes (%) (Auto) 4.2, Eosinophils (%) (Auto) 0.0, Basophils (%) (Auto) 0.3, Neutrophils # (Auto) 5.7, Lymphocytes # (Auto) 0.6L, Monocytes # (Auto) 0.3, Eosinophils # (Auto) 0.0, Basophils # (Auto) 0.0, Nucleated Red Blood Cells % (auto) 1.0H, Anion Gap 4L, Glomerular Filtration Rate > 60.0, Calc ium Level 8.5 01/24/20 07:35: Bedside Glucose (Misc Panel) 310H CBC/BMP Laboratory Tests 01/24/20 04:11 Microbiology Microbiology 01/22/20 Blood Culture - Preliminary, Resulted No growth after 24 hours . All specim... 01/22/20 Respiratory Panel (PCR) - Final, Complete Human Metapneumovirus 01/22/20 Blood Culture - Preliminary, Resulted No growth after 24 hours . All specim... BREE LYON MD Jan 24, 2020 10:11
--- NOTE | 2020-01-24 10:22 | IPN ---
DATE: 01/24/2020 NOTE: Ms. Reza did well overnight. She feels much less short of breath today. In fact she feels at her baseline. She still has an occasional productive cough. She swallows her sputum so she does not know the color of it. She has remained afebrile and hemodynamically stable. Her oxygen requirements have decreased and she is now on 4 liters that but satting 94%. She wears 3 liters as an outpatient. Ms. Reza has had frequent admissions to the hospital. In talking to her, there has been no change in her environment since these frequent admissions but started occurring, but she does note that her daughter, whom she lives with, obtained two kittens approximately 3 weeks ago. There are no active smokers in any of her environments. Ms. Reza is anxious for discharge. OBJECTIVE: PHYSICAL EXAMINATION: GENERAL: Ms. Reza is lying in bed in no acute distress. She can complete full sentences. VITAL SIGNS: Temperature 97.3, pulse 109, respiratory rate 18, SPO2 94% on FIO2 of 4, blood pressure 108/64. HEENT: Anicteric, oropharynx clear, moist mucosa, crowded posterior pharynx. NECK: Supple, without thyromegaly or masses, trachea is midline. Unable to assess JVD because of body habitus. LYMPH: Without cervical or supraclavicular lymphadenopathy. LUNGS: Symmetric excursion, generalized diminished air entry, no wheeze, rhonchi or significant crackles. There are very few right basilar fine crackles. Prolonged expiratory phase. Without accessory muscle usage or retractions. CARDIOVASCULAR: Regular rate and rhythm with a normal S1-S2, no murmur, rub or gallop appreciated. ABDOMEN: Positive bowel sounds, soft, obese. EXTREMITIES: Without clubbing or cyanosis, trace pretibial edema slightly greater on the right. No calf tenderness. LABORATORY DATA: CBC from this morning shows a hemoglobin of 10.2, hematocrit 32.1, platelet count 155,000, white blood cell count 6900 with a differential of 84% neutrophils, 9% lymphocytes, 4% monocytes. Chemistries shows sodium 133, potassium 3.6, chloride 90, bicarbonate 39, anion gap 4, BUN 16, creatinine 0.8. Procalcitonin from yesterday was 0.08. Yesterday's intake and output were 2160 in, 2400 out, making her negative 240. Thus far today 655 in and 800 out making her negative 145. Weight 95.8 kg. Microbiology: She is positive for human metapneumovirus. IMPRESSION: 1. COPD exacerbation secondary to human metapneumovirus. 2. End-stage COPD with hypercapnia and hypoxia, on 3 liters by nasal cannula. At baseline, on chronic prednisone. RECOMMENDATIONS: 1. Will change her over to prednisone at this time. I recommend placing her on prednisone at 40 mg daily and slowly weaning her down to her baseline level, which is 10 mg daily. 2. Given the positive viral PCR as well as a low procalcitonin would de-escalate antibiotics and consider stopping them at this time. 3. I would recommend a two-view chest x-ray to clarify the left lower lobe finding seen on her admit chest x-ray up. At this time there is no further recommendations other than that outlined above and the pulmonary service will sign off. Please reconsult the service if there are further problems or questions.
[2020-01-24] MEDS ORDERED: FUROSEMIDE 20 MG/2 ML VIAL (J1940) IV ONE (10:30)
--- NOTE | 2020-01-24 10:49 | REP ---
CHEST X-RAY: Two views. HISTORY: Abnormal single view chest x-ray. Left lower lobe infiltrate on January 22, 2020. FINDINGS: There are discoid atelectatic changes in the left base at the site of the previously noted infiltrate. Infiltrate shows improvement. No new infiltrate is appreciated. Lungs are somewhat hyperinflated. Heart is not enlarged. Calcification is seen in the transverse aorta. The patient is status post cervical spine fusion plating. Monitoring electrodes are seen. IMPRESSION: Improved aeration left base. Plate-like atelectasis left base. Hyperinflation. Electronically Signed by Byron Cunningham MD 01/24/2020 12:22 P
[2020-01-24] MEDS: TIOTROPIUM INHALER/CAPSULE (SPIRIVA) INH SCH (11:02)
[2020-01-24] MEDS: LEVEMIR (INSULIN DETEMIR) 1 UNITS/0.01ML SC SCH (20:40)
[2020-01-24] MEDS: PARoxetine 20 MG TAB PO SCH (20:43)
[2020-01-24] MEDS: ATORVASTATIN 20 MG TAB PO SCH (20:43)
[2020-01-25] VITALS (17 sets, daily range): BP systolic 120–141; BP diastolic 67–78; O2SAT 87–95
[2020-01-25] MEDS: IPRATROPIUM 0.5MG/ALBUTEROL 2.5MG INH SOL UD 3ML (DUONEB)(J7620) NEB SCH ×5 (02:29→20:00)
[2020-01-25] MEDS: LEVOTHYROXINE 25MCG TABLET (0.025MG) PO SCH (05:22)
[2020-01-25] MEDS: SLF 3 ML SYR IV SCH ×3 (05:23→20:01)
[2020-01-25 05:33] LABS: HEMOGLOBIN 10.6 g/dl (12.0-15.5); MEAN CORPUSCULAR HEMOGLOBIN 29.6 pg (27.0-33.0); MEAN CORPUSCULAR HGB CONC 31.2 g/dl (32.0-36.5); PLATELET COUNT, AUTOMATED 178 10^3/uL (150-450); RED BLOOD COUNT 3.58 10^6/uL (4.00-5.40); WHITE BLOOD COUNT 7.7 10^3/uL (4.0-10.0)
[2020-01-25] MEDS: ADVAIR HFA 230/21MCG INHALER INH SCH ×2 (07:21→20:31)
[2020-01-25] MEDS: TIOTROPIUM INHALER/CAPSULE (SPIRIVA) INH SCH (07:21)
[2020-01-25] MEDS: FUROSEMIDE 40 MG TAB PO SCH (08:37)
[2020-01-25] MEDS: predniSONE 20 MG TAB PO SCH (08:37)
[2020-01-25] MEDS: bisoproloL fumarate 5 MG TAB PO SCH ×2 (08:37→20:01)
[2020-01-25] MEDS: GABAPENTIN 300 MG CAP PO SCH ×3 (08:37→20:00)
[2020-01-25] MEDS: DULoxetine 30 MG CAP (CYMBALTA) PO SCH (08:37)
[2020-01-25] MEDS: HumaLOG INSULIN (NovoLOG) PER UNIT SC SCH ×6 (08:38→17:57)
[2020-01-25] MEDS: APIXABAN 5 MG TAB (ELIQUIS) PO SCH ×2 (09:10→19:59)
--- NOTE | 2020-01-25 09:11 | IPNPDOC ---
Subjective Date Seen The patient was seen on 01/25/20. Subjective Chief Complaint/HPI Seen and examined at bedside, awake and appears comfortable, no issues overnight. General: Reports: Normal Appetite; Denies: Chills, Night Sweats, Fatigue, Malaise Constitutional: Denies: Chills, Fever, Night Sweats Eyes: Denies: Pain, Vision change ENT: Denies: Head Aches, Ear Pain, Dysphagia Skin: Denies: Rash, Lesions, Breakdown Pulmonary: Denies: Dyspnea, Cough Cardiovascular: Denies: Chest Pain, Palpitations, Orthopnea, Paroxysmal Noc. Dyspnea, Lt Headedness Gastrointestinal: Denies: Nausea, Vomiting, Abdominal Pain, Diarrhea, Constipation Genitourinary: Denies: Dysuria, Frequency, Incontinence, Retention Hematologic: Denies: Bruising, Bleeding Excessively Musculoskeletal: Denies: Neck Pain, Back Pain, Joint Pain, Muscle Pain, Spasms Neurological: Denies: Weakness, Numbness, Change in speech, Confusion Psych: Reports: Mood Normal; Denies: Depression, Memory Issues Objective Physical Examination General Exam: Positive: Alert, No Acute Distress Eye Exam: Positive: PERRLA, Conjunctiva & lids normal, EOMI; Negative: Sclera icteric ENT Exam: Positive: Atraumatic, Mucous membr. moist/pink, Pharynx Normal Neck Exam: Positive: Supple; Negative: JVD, thyromegaly Chest Exam: Positive: Clear to auscultation, Normal air movement, Diminished Heart Exam: Positive: Rate Normal, Regular Rhythm, Normal S1, Normal S2; Negative: Murmurs, Rubs Telemetry: Positive: No significant arrhythmia Abdomen Exam: Positive: Normal bowel sounds, Soft; Negative: Tenderness, Hepatospenomegaly Female Exam: Positive: Nl Ext Genitalia; Negative: Lesions, Discharge, Odor, Tenderness Extremity Exam: Positive: Normal pulses; Negative: Clubbing, Cyanosis, Edema Skin Exam: Positive: Nl turgor and temperature; Negative: Breakdown, Lesion Neuro Exam: Positive: Normal Gait, Normal Speech, Cranial Nerves 3-12 NL, Reflexes 2+ Psych Exam: Positive: Mental status NL, Mood NL, Oriented x 3 Assessment /Plan Assessment 1. acute hypercapnic respiratory failure secondary to COPD exacerbation - PO steroids, duonebs. - seen by pulmonary Dr. Null. - respiratory panel positive for HMN virus. - procalcitonin normal, will d/c antibiotics. - repeat CXR clear. - d/w CM, will need evaluation with Myesha regarding starting home ventilator due to recurrent exacerbations from end stage COPD. 2. HTN - continue bisoprolol. 3. chronic LE edema - continue lasix, IV prn. 4. hypothyroidism - continue levothyroxine. 5. depression - continue duloxetine, paroxetine. 6. DM - Restarted on basal/bolus protocol. - FSBS AC/HS, SSI coverage. Plan/VTE VTE Prophylaxis Ordered?: Yes VS, I&O, 24H, Fishbone Vital Signs/I&O Vital Signs Date Time Temp Pulse Resp B/P (MAP) Pulse Ox O2 Delivery O2 Flow Rate FiO2 01/25/20 08:37 105 121/70 01/25/20 08:00 97.8 22 83 High Flow Cannula 5.0 l I&O- Last 24 Hours up to 6 AM 01/25/20 06:00 Intake Total 1460 ml Output Total 2000 ml Balance -540 ml Laboratory Data 24H LABS Laboratory Tests 2 01/24/20 11:07: Bedside Glucose (Misc Panel) 333H 01/24/20 16:58: Bedside Glucose (Misc Panel) 359H 01/24/20 19:58: Bedside Glucose (Misc Panel) 242H 01/25/20 05:20: Nucleated Red Blood Cells % (auto) 1.7H 01/25/20 07:29: Bedside Glucose (Misc Panel) 140H CBC/BMP Laboratory Tests 01/25/20 05:20 Microbiology Microbiology 01/22/20 Blood Culture - Preliminary, Resulted No Growth after 48 hours. All Specime... 01/22/20 Respiratory Panel (PCR) - Final, Complete Human Metapneumovirus 01/22/20 Blood Culture - Preliminary, Resulted No Growth after 48 hours. All Specime... BREE LYON MD Jan 25, 2020 09:11
[2020-01-25] MEDS: OLANZapine 5 MG TAB PO SCH (09:40)
[2020-01-25] MEDS: ATORVASTATIN 20 MG TAB PO SCH (20:00)
[2020-01-25] MEDS: PARoxetine 20 MG TAB PO SCH (20:00)
[2020-01-25] MEDS: LEVEMIR (INSULIN DETEMIR) 1 UNITS/0.01ML SC SCH (20:01)
[2020-01-26] VITALS (7 sets, daily range): BP systolic 121–144; BP diastolic 63–78
[2020-01-26] MEDS: IPRATROPIUM 0.5MG/ALBUTEROL 2.5MG INH SOL UD 3ML (DUONEB)(J7620) NEB SCH ×6 (00:37→19:45)
[2020-01-26] MEDS: SLF 3 ML SYR IV SCH ×3 (05:13→20:19)
[2020-01-26] MEDS: LEVOTHYROXINE 25MCG TABLET (0.025MG) PO SCH (05:13)
[2020-01-26 05:54] LABS: HEMATOCRIT 36.7 % (36.0-47.0); HEMOGLOBIN 11.3 g/dl (12.0-15.5); MEAN CORPUSCULAR HGB CONC 30.8 g/dl (32.0-36.5); MEAN CORPUSCULAR VOLUME 94.1 fl (80.0-96.0); PLATELET COUNT, AUTOMATED 200 10^3/uL (150-450); WHITE BLOOD COUNT 8.2 10^3/uL (4.0-10.0)
[2020-01-26 06:24] LABS: ATYPICAL LYMPH 1 % (0-5); LYMPHOCYTES 36 % (16-44); METAMYELOCYTES 1 % (0-0); MONOCYTES 5 % (0-5); MYELOCYTES 2 % (0-0); NEUTROPHILS 54 % (28-66); PLATELET ESTIMATE NORMAL (NORMAL)
[2020-01-26 06:25] LABS: ANISOCYTOSIS 1+; BLOOD UREA NITROGEN 17 MG/DL (7-18); CALCIUM LEVEL 8.7 MG/DL (8.5-10.1); CARBON DIOXIDE LEVEL 44 MEQ/L (21-32); CHLORIDE LEVEL 91 MEQ/L (98-107); CREATININE FOR GFR 0.68 MG/DL (0.55-1.30); GLOMERULAR FILTRATION RATE > 60.0 (>51); GLUCOSE, FASTING 117 MG/DL (70-100); POTASSIUM SERUM 3.1 MEQ/L (3.5-5.1); SODIUM LEVEL 142 MEQ/L (136-145)
[2020-01-26 06:29] LABS: POLYCHROMASIA 1+
[2020-01-26] MEDS ORDERED: POTASSIUM CHLORIDE 10 MEQ SR TABLET PO ONE (06:45)
[2020-01-26] MEDS: TIOTROPIUM INHALER/CAPSULE (SPIRIVA) INH SCH (07:17)
[2020-01-26] MEDS: ADVAIR HFA 230/21MCG INHALER INH SCH ×2 (07:17→19:45)
[2020-01-26] MEDS: HumaLOG INSULIN (NovoLOG) PER UNIT SC SCH ×6 (08:14→18:05)
[2020-01-26] MEDS: GABAPENTIN 300 MG CAP PO SCH ×3 (08:15→20:17)
[2020-01-26] MEDS: DULoxetine 30 MG CAP (CYMBALTA) PO SCH (08:15)
[2020-01-26] MEDS: bisoproloL fumarate 5 MG TAB PO SCH ×2 (08:16→20:18)
[2020-01-26] MEDS: FUROSEMIDE 40 MG TAB PO SCH (08:16)
[2020-01-26] MEDS: APIXABAN 5 MG TAB (ELIQUIS) PO SCH ×2 (08:16→20:18)
[2020-01-26] MEDS: predniSONE 20 MG TAB PO SCH (08:16)
[2020-01-26] MEDS: OLANZapine 5 MG TAB PO SCH (08:16)
--- NOTE | 2020-01-26 09:54 | IPNPDOC ---
Subjective Date Seen The patient was seen on 01/26/20. Subjective Chief Complaint/HPI Seen and examined at bedside, awake and alert, no specific complaints. General: Reports: Normal Appetite; Denies: Chills, Night Sweats, Fatigue, Malaise Constitutional: Denies: Chills, Fever, Night Sweats Eyes: Denies: Pain, Vision change ENT: Denies: Head Aches, Ear Pain, Dysphagia Skin: Denies: Rash, Lesions, Breakdown Pulmonary: Denies: Dyspnea, Cough Cardiovascular: Denies: Chest Pain, Palpitations, Orthopnea, Paroxysmal Noc. Dyspnea, Lt Headedness Gastrointestinal: Denies: Nausea, Vomiting, Abdominal Pain, Diarrhea, Constipation Genitourinary: Denies: Dysuria, Frequency, Incontinence, Retention Hematologic: Denies: Bruising, Bleeding Excessively Musculoskeletal: Denies: Neck Pain, Back Pain, Joint Pain, Muscle Pain, Spasms Neurological: Denies: Weakness, Numbness, Change in speech, Confusion Psych: Reports: Mood Normal; Denies: Depression, Memory Issues Objective Physical Examination General Exam: Positive: Alert, No Acute Distress Eye Exam: Positive: PERRLA, Conjunctiva & lids normal, EOMI; Negative: Sclera icteric ENT Exam: Positive: Atraumatic, Mucous membr. moist/pink, Pharynx Normal Neck Exam: Positive: Supple; Negative: JVD, thyromegaly Chest Exam: Positive: Clear to auscultation, Normal air movement, Diminished Heart Exam: Positive: Rate Normal, Regular Rhythm, Normal S1, Normal S2; Negative: Murmurs, Rubs Telemetry: Positive: No significant arrhythmia Abdomen Exam: Positive: Normal bowel sounds, Soft; Negative: Tenderness, Hepatospenomegaly Female Exam: Positive: Nl Ext Genitalia; Negative: Lesions, Discharge, Odor, Tenderness Extremity Exam: Positive: Normal pulses; Negative: Clubbing, Cyanosis, Edema Skin Exam: Positive: Nl turgor and temperature; Negative: Breakdown, Lesion Neuro Exam: Positive: Normal Gait, Normal Speech, Cranial Nerves 3-12 NL, Reflexes 2+ Psych Exam: Positive: Mental status NL, Mood NL, Oriented x 3 Assessment /Plan Assessment 1. acute hypercapnic respiratory failure secondary to COPD exacerbation - PO steroids, duonebs. - seen by pulmonary Dr. Null. - respiratory panel positive for HMN virus. - procalcitonin normal, will d/c antibiotics. - repeat CXR clear. - d/w CM, will need evaluation with Myesha regarding starting home ventilator due to recurrent exacerbations from end stage COPD. 2. HTN - continue bisoprolol. 3. chronic LE edema - continue lasix, IV prn. 4. hypothyroidism - continue levothyroxine. 5. depression - continue duloxetine, paroxetine. 6. DM - Restarted on basal/bolus protocol. - FSBS AC/HS, SSI coverage. Plan/VTE VTE Prophylaxis Ordered?: Yes VS, I&O, 24H, Fishbone Vital Signs/I&O Vital Signs Date Time Temp Pulse Resp B/P (MAP) Pulse Ox O2 Delivery O2 Flow Rate FiO2 01/26/20 08:16 108 122/67 01/26/20 08:00 97.8 18 88 High Flow Cannula 5.0 I&O- Last 24 Hours up to 6 AM 01/26/20 06:00 Intake Total 1520 ml Output Total 1200 ml Balance 320 ml Laboratory Data 24H LABS Laboratory Tests 2 01/25/20 12:11: Bedside Glucose (Misc Panel) 264H 01/25/20 17:09: Bedside Glucose (Misc Panel) 255H 01/25/20 19:57: Bedside Glucose (Misc Panel) 330H 01/26/20 05:34: Immature Granulocyte % (Auto) , Neutrophils (%) (Auto) , Nucleated Red Blood Cells % (auto) 1.5H, Neutrophils 54, Band Neutrophils 1, Lymphocytes (Manual) 36, Monocytes (Manual) 5, Metamyelocytes 1H, Myelocytes 2H, Atypical Lymphocytes 1, Polychromasia 1+, Anisocytosis 1+, Macrocytosis 1+, Platelet Estimate NORMAL, Anion Gap 7L, Glomerular Filtration Rate > 60.0, Calcium Level 8.7 CBC/BMP Laboratory Tests 01/26/20 05:34 Microbiology Microbiology 01/22/20 Blood Culture - Preliminary, Resulted No Growth after 72 hours. All specime... 01/22/20 Respiratory Panel (PCR) - Final, Complete Human Metapneumovirus 01/22/20 Blood Culture - Preliminary, Resulted No Growth after 72 hours. All specime... BREE LYON MD Jan 26, 2020 09:54
[2020-01-26] MEDS: LEVEMIR (INSULIN DETEMIR) 1 UNITS/0.01ML SC SCH (20:17)
[2020-01-26] MEDS: PARoxetine 20 MG TAB PO SCH (20:18)
[2020-01-26] MEDS: ATORVASTATIN 20 MG TAB PO SCH (20:18)
[2020-01-27] VITALS: BP 134/82
[2020-01-27] MEDS: IPRATROPIUM 0.5MG/ALBUTEROL 2.5MG INH SOL UD 3ML (DUONEB)(J7620) NEB SCH ×4 (00:07→11:22)
[2020-01-27 04:00] VITALS: BP 138/63
[2020-01-27] MEDS: SLF 3 ML SYR IV SCH (05:25)
[2020-01-27] MEDS: LEVOTHYROXINE 25MCG TABLET (0.025MG) PO SCH (05:25)
[2020-01-27] MEDS: TIOTROPIUM INHALER/CAPSULE (SPIRIVA) INH SCH (07:51)
[2020-01-27] MEDS: ADVAIR HFA 230/21MCG INHALER INH SCH (07:52)
[2020-01-27 07:53] VITALS: BP 159/73
[2020-01-27] MEDS: APIXABAN 5 MG TAB (ELIQUIS) PO SCH (08:49)
[2020-01-27] MEDS: FUROSEMIDE 40 MG TAB PO SCH (08:49)
[2020-01-27] MEDS: DULoxetine 30 MG CAP (CYMBALTA) PO SCH (08:49)
[2020-01-27] MEDS: OLANZapine 5 MG TAB PO SCH (08:49)
[2020-01-27] MEDS: predniSONE 20 MG TAB PO SCH (08:49)
[2020-01-27] MEDS: GABAPENTIN 300 MG CAP PO SCH (08:49)
[2020-01-27] MEDS: HumaLOG INSULIN (NovoLOG) PER UNIT SC SCH ×2 (08:50→08:51)
[2020-01-27] MEDS: bisoproloL fumarate 5 MG TAB PO SCH (08:50)
[2020-01-27] MEDS: oxyCODONE 5MG TAB PO PRN (08:57)
--- NOTE | 2020-01-27 10:39 | DS.PDOC ---
Discharge Summary General Date of Admission Jan 25, 2020 at 09:15 Date of Discharge 01/27/20 Discharge Summary PROCEDURES PERFORMED DURING STAY: [None]. ADMITTING DIAGNOSES: 1. acute hypercapnic respiratory failure secondary to acute COPD exacerbation DISCHARGE DIAGNOSES: 1. acute hypercapnic respiratory failure secondary to acute COPD exacerbation COMPLICATIONS/CHIEF COMPLAINT: Acute Respiratory Acidosis. HISTORY OF PRESENT ILLNESS: Please refer to admission H&P for detailed HPI. HOSPITAL COURSE: Patient was admitted to the hospital and treated for the following conditions: 1. acute hypercapnic respiratory failure secondary to COPD exacerbation - PO steroids, duonebs, IV antibiotics. - seen by pulmonary Dr. Null. - respiratory panel positive for HMN virus. - procalcitonin normal, cx negative, antibiotics were discontinued. - repeat CXR clear. - patient appears at baseline and is stable for discharge. - patient will require follow up with Myesha regarding starting home ventilator due to recurrent exacerbations from end stage COPD. 2. HTN - continue bisoprolol. 3. chronic LE edema - continue lasix. 4. hypothyroidism - continue levothyroxine. 5. depression - continue duloxetine, paroxetine. 6. DM - continue insulin, metformin. DISCHARGE MEDICATIONS: Please see below. ALLERGIES: Please see below. PHYSICAL EXAMINATION ON DISCHARGE: VITAL SIGNS: Please see below. GENERAL: awake, alert, NAD HEENT: NCAT, anicteric sclera, PERRLA/EOMI NECK: supple, no JVD, no masses/thyromegaly CARDIOVASCULAR EXAMINATION: NS1S2, regular, no M/R/G RESPIRATORY EXAMINATION: CTA b/l, no wheezes/rales/rhonchi ABDOMINAL EXAMINATION: NT/ND, positive bowel sounds x 4 EXTREMITIES: no cyanosis, clubbing, edema SKIN: warm, no rashes NEUROLOGICAL EXAMINATION: AAO x 3, no focal motor/sensory deficits PSYCHIATRIC EXAMINATION: calm, cooperative, normal affect LABORATORY DATA: Please see below. ACTIVITY: [As tolerated]. DIET: diabetic DISPOSITION: home DISCHARGE INSTRUCTIONS: 1. Please follow up with PCP in 1-2 weeks ITEMS TO FOLLOWUP ON ON OUTPATIENT: 1. none DISCHARGE CONDITION: [Stable]. TIME SPENT ON DISCHARGE: Greater than minutes. Vital Signs/I&Os Vital Signs Date Time Temp Pulse Resp B/P (MAP) Pulse Ox O2 Delivery O2 Flow Rate FiO2 01/27/20 09:46 20 01/27/20 08:00 98 High Flow Cannula 4.0 4/6/20 07:53 97.0 93 159/73 (101) I&O- Last 24 Hours up to 6 AM 01/27/20 06:00 Intake Total 1845 ml Output Total 1600 ml Balance 245 ml Laboratory Data Labs 24H Laboratory Tests 2 01/26/20 11:51: Bedside Glucose (Misc Panel) 198H 01/26/20 16:57: Bedside Glucose (Misc Panel) 324H 01/26/20 19:43: Bedside Glucose (Misc Panel) 299H 01/27/20 07:40: Bedside Glucose (Misc Panel) 164H FSBS Laboratory Tests Test 01/26/20 11:51 01/26/20 16:57 01/26/20 19:43 01/27/20 07:40 Range/Units Bedside Glucose (Misc Panel) 198 324 299 164 70-105 MG/DL Microbiology Microbiology 01/22/20 Blood Culture - Preliminary, Resulted No Growth after 72 hours. All specime... 01/22/20 Respiratory Panel (PCR) - Final, Complete Human Metapneumovirus 01/22/20 Blood Culture - Preliminary, Resulted No Growth after 72 hours. All specime... Discharge Medications Scheduled Ammonium Lactate (Ammonium Lactate) 12% Cream..g., 1 DOSE TOP DAILY, (Reported) APPLY TO FEET Apixaban (Eliquis) 5 Mg Tablet, 5 MG PO BID, (Reported) Atorvastatin Calcium (Atorvastatin Calcium) 20 Mg Tab, 20 MG PO QHS, (Reported) Bisoprolol Fumarate (Bisoprolol Fumarate) 5 Mg Tablet, 5 MG PO BID, (Reported) Dexlansoprazole (Dexilant) 60 Mg Cap, 60 MG PO DAILY, (Reported) Duloxetine Hcl (Duloxetine HCl) 60 Mg Capsule.dr, 60 MG PO DAILY, (Reported) Furosemide (Furosemide) 40 Mg Tablet, 40 MG PO DAILY, (Reported) Gabapentin (Gabapentin) 600 Mg Tab, 600 MG PO TID, (Reported) Insulin Detemir (Levemir) 100 Unit/1 Ml Vial, 20 UNITS SC QHS, (Reported) Levothyroxine Sodium (Levothyroxine Sodium) 25 Mcg Tablet, 25 MCG PO DAILY, (Reported) Metformin HCl (Glucophage Xr) 500 Mg Tab.er.24h, 1,000 MG PO DAILY, (Reported) Olanzapine (Olanzapine) 5 Mg Tablet, 5 MG PO DAILY, (Reported) Paroxetine HCl (Paroxetine HCl) 40 Mg Tab, 40 MG PO QHS, (Reported) Plecanatide (Trulance) 3 Mg Tablet, 3 MG PO QPM, (Reported) Prednisone (Prednisone) 20 Mg Tablet, 20 MG PO DAILY, (Reported) Salmeterol/Fluticasone (Advair 500-50 Diskus) 1 Each Blst.w.dev, 1 PUFF INH BID, (Reported) Umeclidinium [place] (Incruse Ellipta) 62.5 Mcg/Inh Inh, 1 PUFF INH DAILY, (Reported) TAKES AT NOON Scheduled PRN Albuterol Sulfate (Ventolin Hfa) 18 Gm Hfa.aer.ad, 2 PUFF INH Q4H PRN for SHORTNESS OF BREATH, (Reported) Oxycodone HCl (Oxycodone HCl) 5 Mg Tab, 5 MG PO BID PRN for PAIN, (Reported) Allergies Coded Allergies: No Known Allergies (Verified Allergy, Unknown, 12/09/19) BREE LYON MD Jan 27, 2020 10:37
== END 2020-01-27 11:57 | disposition home health service (06) | DRG 189 ==
LOC: EDBD 12:02 → M ED 12:02 → M ED INP 12:03 → ENRESERVDT 16:47 → ENRESERVTM 16:47 → M PCU 17:15 → OBSVTOIN 01-25 09:15
PROVIDERS: ADMIT Internal Medicine; ATTEND Internal Medicine
DX: J96.22 Acute and chronic respiratory failure with hypercapnia (principal); J44.1 Chronic obstructive pulmonary disease with (acute) exacerbation; F11.20 Opioid dependence, uncomplicated; E87.2 Acidosis; I10 Essential (primary) hypertension; J96.11 Chronic respiratory failure with hypoxia; R60.0 Localized edema; E66.9 Obesity, unspecified; E03.9 Hypothyroidism, unspecified; B97.81 Human metapneumovirus as the cause of diseases classified elsewhere; G43.909 Migraine, unspecified, not intractable, without status migrainosus; G25.0 Essential tremor; F32.9 Major depressive disorder, single episode, unspecified; E11.9 Type 2 diabetes mellitus without complications; M54.2 Cervicalgia; Z79.01 Long term (current) use of anticoagulants; Z79.4 Long term (current) use of insulin; Z79.899 Other long term (current) drug therapy; Z79.52 Long term (current) use of systemic steroids; Z99.81 Dependence on supplemental oxygen; Z98.1 Arthrodesis status; Z96.652 Presence of left artificial knee joint; Z79.891 Long term (current) use of opiate analgesic; Z87.891 Personal history of nicotine dependence

== ENCOUNTER 2020-02-02 14:16 | Inpatient (IN) | payer MEDICARE, MEDICAID ==
[~2020-02-02] VITALS: Ht 167.6 cm; Wt 95.5 kg
[2020-02-02 14:30] VITALS: O2SAT 93
[2020-02-02] MEDS: COMBIVENT RESPIMAT 100-20MCG INHALER 4GM INH SCH ×3 (14:39→15:48)
[2020-02-02] MEDS ORDERED: DIGOXIN INJ 0.5 MG/2 ML AMP (J1160) IV STA ×2 (14:56→16:06)
[2020-02-02] MEDS ORDERED: POTASSIUM CHLORIDE 10 MEQ SR TABLET PO ONE ×2 (15:00→17:00)
[2020-02-02 15:01] LABS: HEMATOCRIT 34.8 % (36.0-47.0); HEMOGLOBIN 10.3 g/dl (12.0-15.5); MEAN CORPUSCULAR HEMOGLOBIN 29.2 pg (27.0-33.0); MEAN CORPUSCULAR HGB CONC 29.6 g/dl (32.0-36.5); MEAN CORPUSCULAR VOLUME 98.6 fl (80.0-96.0); PLATELET COUNT, AUTOMATED 353 10^3/uL (150-450); RED BLOOD COUNT 3.53 10^6/uL (4.00-5.40); WHITE BLOOD COUNT 8.7 10^3/uL (4.0-10.0)
[2020-02-02 15:25] LABS: ANISOCYTOSIS 1+; LYMPHOCYTES 8 % (16-44); METAMYELOCYTES 2 % (0-0); MONOCYTES 4 % (0-5); MYELOCYTES 1 % (0-0); NEUTROPHILS 82 % (28-66); PLATELET ESTIMATE NORMAL (NORMAL); POLYCHROMASIA 1+; PROMYELOCYTES 1 % (0-0)
--- NOTE | 2020-02-02 15:30 | REP ---
REASON FOR EXAM: Followup. COMPARISON EXAM: 01/24/2020 Curvilinear left basilar opacities persist. There are no new abnormal opacities. There are chronic biapical changes, status quo. The heart is accentuated by technique. The technique utilized in obtaining the radiograph has magnified the cardiac silhouette and accentuated the interstitial markings. There is no change in the osseous structures. IMPRESSION: No significant change from the prior exam other than technique. Subsegmental atelectatic changes suspected and persist in the left lung base. There are chronic lung field changes which are stable in appearance. There is no plain radiographic evidence of acute cardiopulmonary disease. Electronically Signed by Malvin Weiner DO 02/02/2020 03:52 P
[2020-02-02 15:32] LABS: ALT/SGPT 36 U/L (12-78); BILIRUBIN,DIRECT 0.2 MG/DL (0.0-0.2); BILIRUBIN,TOTAL 0.5 MG/DL (0.2-1.0); BLOOD UREA NITROGEN 22 MG/DL (7-18); CALCIUM LEVEL 8.5 MG/DL (8.5-10.1); CARBON DIOXIDE LEVEL 39 MEQ/L (21-32); CHLORIDE LEVEL 91 MEQ/L (98-107); CK-MB VALUE MASS < 1.0 NG/ML (<3.6); CPK CREATINE PHOSPHOKINASE 31 U/L (26-192); CREATININE FOR GFR 0.91 MG/DL (0.55-1.30); GLOMERULAR FILTRATION RATE > 60.0 (>51); GLUCOSE, FASTING 254 MG/DL (70-100); MB/CK RELATIVE INDEX 3.23 (< OR =4); NT-PRO BNP 276 PG/ML (<125); POTASSIUM SERUM 3.7 MEQ/L (3.5-5.1); SODIUM LEVEL 138 MEQ/L (136-145); TOTAL PROTEIN 6.5 GM/DL (6.4-8.2); TROPONIN I < 0.02 NG/ML (< 0.10)
[2020-02-02] MEDS ORDERED: ISOVUE-370 76% 100ML VIAL (Q9967) As Ordered ONE (16:06)
[2020-02-02] MEDS ORDERED: GLUCOSE 4 GM CHEW TABLET PO PRN (16:30)
[2020-02-02] MEDS ORDERED: ALBUTEROL 90 MCG/ACT 8GM HFA INHALER INH PRN (16:30)
[2020-02-02] MEDS ORDERED: GLUCAGON FOR INJ 1 MG VIAL (J1610) SC PRN (16:30)
[2020-02-02] MEDS ORDERED: IPRATROPIUM HFA INHALER 12.9 GRAMS (ATROVENT HFA) INH PRN (16:30)
[2020-02-02] MEDS ORDERED: METOPROLOL 5 MG/5 ML VIAL IV PRN (16:30)
[2020-02-02] MEDS ORDERED: DEXTROSE 50% 50 ML SYRINGE IV PRN (16:30)
--- NOTE | 2020-02-02 16:57 | HPEPDOC ---
General Date of Admission Feb 02, 2020 at 16:18 Date of Service: Feb 02, 2020 Chief Complaint The patient is a 60-year-old female admitted with a reason for visit of Atrial Fibrillation With Rvr. Source: Patient Exam Limitations: No limitations Timing/Duration: 4-6 hours Severity: Moderate Associated Symptoms: Shortness of breath History of Present Illness Patient is 60 years old female with past medical history of COPD, oxygen dependent on 3 L of oxygen at home, diabetes mellitus, paroxysmal atrial fibrillation, hypothyroidism, hypertension and chronic neck pain presents from home with worsening shortness of breath. Patient stated that today around lunchtime she started feeling increased shortness of breath. She has chronic respiratory failure, on supplemental oxygen, pCO2 is typically 60-70, followed by Dr. Montez at [facility]. Last visit there was 09/11/19. Oxygen (O2) saturation was 83% on room air. Most recent spirometry was from 03/19/19; FEV1 was low at 0.63, FEV1/FVC ratio was only 45% consistent with severe obstructive pattern, unchanged from prior. In ER patient was found to have acute on chronic hypoxemic hypercapnic respiratory failure. Patient denied any fever, chills, nausea, vomiting, any change in sputum color. Also patient was found to have atrial fibrillation with rapid ventricular rate of 140-150. Dr. Ray was contacted by phone by ER doctor, he recommended IV digoxin 2 doses. Home Medications Scheduled Apixaban (Eliquis) 5 Mg Tablet, 5 MG PO BID, (Reported) Atorvastatin Calcium (Atorvastatin Calcium) 20 Mg Tab, 20 MG PO QHS, (Reported) Dexlansoprazole (Dexilant) 60 Mg Cap, 60 MG PO DAILY, (Reported) Duloxetine Hcl (Duloxetine HCl) 60 Mg Capsule.dr, 60 MG PO DAILY, (Reported) Furosemide (Furosemide) 40 Mg Tablet, 40 MG PO DAILY, (Reported) Gabapentin (Gabapentin) 600 Mg Tab, 600 MG PO TID, (Reported) Insulin Detemir (Levemir) 100 Unit/1 Ml Vial, 20 UNITS SC QHS, (Reported) Levothyroxine Sodium (Levothyroxine Sodium) 25 Mcg Tablet, 25 MCG PO DAILY, (Reported) Metformin HCl (Glucophage Xr) 500 Mg Tab.er.24h, 1,000 MG PO BID, (Reported) Olanzapine (Olanzapine) 5 Mg Tablet, 5 MG PO DAILY, (Reported) Paroxetine HCl (Paroxetine HCl) 40 Mg Tab, 40 MG PO QHS, (Reported) Plecanatide (Trulance) 3 Mg Tablet, 3 MG PO QHS, (Reported) Prednisone (Prednisone) 20 Mg Tablet, 20 MG PO DAILY, (Reported) Salmeterol/Fluticasone (Advair 500-50 Diskus) 1 Each Blst.w.dev, 1 PUFF INH BID, (Reported) Umeclidinium [place] (Incruse Ellipta) 62.5 Mcg/Inh Inh, 1 PUFF INH DAILY, (Reported) TAKES AT NOON Scheduled PRN Albuterol Sulfate (Ventolin Hfa) 18 Gm Hfa.aer.ad, 2 PUFF INH Q4H PRN for SHORTNESS OF BREATH, (Reported) Oxycodone HCl (Oxycodone HCl) 5 Mg Tab, 5 MG PO BID PRN for PAIN, (Reported) Allergies Coded Allergies: No Known Allergies (Verified Allergy, Unknown, 12/09/19) Past Medical History Medical History 1. COPD. 2. Diabetes mellitus. 3. Paroxysmal atrial fibrillation. 4. Hypothyroidism. 5. Hypertension. 6. Chronic neck pain. 7. Hyperlipidemia Surgical History 1. Neck surgery. Social History * Smoker: former Smoker Alcohol: Denies Drugs: denies A-FIB/CHADSVASC A-FIB History Current/History of A-Fib/PAF?: Yes Current PO Anticoag Therapy: Yes Review of Systems Constitutional: Denies: Chills, Fever Eyes: Denies: Pain, Vision change ENT: Denies: Head Aches Skin: Denies: Rash, Lesions Pulmonary: Reports: Dyspnea Cardiovascular: Reports: Palpitations; Denies: Chest Pain Gastrointestinal: Denies: Nausea, Vomiting Genitourinary: Denies: Dysuria, Frequency Hematologic: Denies: Bruising, Bleeding Excessively Endocrine: Denies: Polydipsia, Polyphagia Musculoskeletal: Reports: Neck Pain Neurological: Denies: Weakness, Numbness Psych: Reports: Mood Normal Physical Examination General Exam: Positive: Alert, Cooperative Eye Exam: Positive: PERRLA ENT Exam: Positive: Atraumatic Neck Exam: Positive: Supple; Negative: JVD Chest Exam: Positive: Rales Heart Exam: Positive: Tachycardic Telemetry: Positive: Atrial fibrillation Abdomen Exam: Positive: Normal bowel sounds Extremity Exam: Negative: Clubbing, Cyanosis Skin Exam: Positive: Nl turgor and temperature; Negative: Rash Neuro Exam: Positive: Strength at 5/5 X4 ext, Cranial Nerves 3-12 NL Psych Exam: Positive: Mental status NL Vital Signs Vital Signs Date Time Temp Pulse Resp B/P (MAP) Pulse Ox O2 Delivery O2 Flow Rate FiO2 02/02/20 15:50 138 02/02/20 15:15 22 148/77 (100) 96 Nasal Cannula 3.0 02/02/20 14:20 97.6 Laboratory Data Labs 24H Laboratory Tests 2 02/02/20 14:40: POC pH (Misc Panel) 7.378, POC Base Excess (Misc Panel) 15.0H, POC Saturated Percent O2 (Misc) 92L, POC pO2 (Misc Panel) 67.0L, POC pCO2 (Misc Panel) 67.7*H, POC HCO3 (Misc Panel) 39.9H, POC Total CO2 (Misc Panel) 42.0H 02/02/20 14:47: POC Total CO2 (Misc Panel) 39.0H, Immature Granulocyte % (Auto) , Neutrophils (%) (Auto) , Nucleated Red Blood Cells % (auto) 2.3H, Neutrophils 82H, Band Neutrophils 2, Lymphocytes (Manual) 8L, Monocytes (Manual) 4, Metamyelocytes 2H, Myelocytes 1H, Promyelocytes 1H, Polychromasia 1+, Basophilic Stippling 1+, Anisocytosis 1+, Macrocytosis 1+, Platelet Estimate NORMAL, POC Glucose (Misc Panel) 271H, POC Sodium (Misc Panel) 137, POC Potassium (Misc Panel) 3.6, POC Chloride (Misc Panel) 87L, POC Blood Urea Nitrogen (Misc Panel 21, POC Ionized Calcium (Misc Panel) 4.1L, POC Creatinine (Misc Panel) 0.8, POC Hematocrit (Misc Panel) 32.0L, Anion Gap 8, Glomerular Filtration Rate > 60.0, Lactic Acid Level 4.3*H, Calcium Level 8.5, Total Bilirubin 0.5, Direct Bilirubin 0.2, Aspartate Amino Transf (AST/SGOT) 23, Alanine Aminotransferase (ALT/SGPT) 36, Alkaline Phosphatase 93, Total Creatine Kinase 31, Creatine Kinase MB < 1.0, Creatine Kinase MB Relative Index 3.23, Troponin I < 0.02, GQ-[id number]-Type Natriuretic Peptide 276H, Total Protein 6.5, Albumin 3.0L, Albumin/Globulin Ratio 0.86L, Thy roid Stimulating Hormone (TSH) 2.080, Thyroxine (T4) 12.0 CBC/BMP Laboratory Tests 02/02/20 14:47 Microbiology Microbiology 02/02/20 Blood Culture, Received Pending 02/02/20 Respiratory Virus Panel (PCR) (KARUNA) - Final, Complete 02/02/20 Blood Culture, Received Pending Assessment/Plan Patient is 60 years old female with past medical history of COPD, oxygen dependent on 3 L of oxygen at home, diabetes mellitus, paroxysmal atrial fibrillation, hypothyroidism, hypertension and chronic neck pain presents from home with worsening shortness of breath. Patient stated that today around lunchtime she started feeling increased shortness of breath. In ER patient was found to have acute on chronic hypoxemic hypercapnic respiratory failure. Patient denied any fever, chills, nausea, vomiting, any change in sputum color. Also patient was found to have atrial fibrillation with rapid ventricular rate of 140-150. Dr. Ray was contacted by phone by ER doctor, he recommended IV digoxin 2 doses. Problems (1) Atrial fibrillation Status: Acute Problem Text: Patient developed atrial fibrillation with rapid ventricular rate Pharmacy Associate team recommended digoxin. Patient received 2 doses I reviewed her home medications, she was not on the beta blockers I will give beta blockers in was to control her rate We will check echo, Her last echocardiogram was during her 09/21/19 admission. Left atrium was normal size, ejection fraction normal at 60%, some diastolic dysfunction noted. (2) Acute and chronic respiratory failure ([id number]) Status: Acute Problem Text: Multifactorial Most likely attributed to atrial fibrillation with rapid ventricular rate Patient doesn't have leukocytosis, I will postpone antibiotic therapy given no increased cough or changes in sputum color (3) Dyspnea Status: Acute Problem Text: Most likely secondary to atrial fibrillation with rapid ventricular rate Patient chronically on the oxygen treatment 3 L home, now her oxygen requirements 4 L Patient received digoxin and beta blockers Continue inhalers, prednisone 20 mg (4) Diastolic congestive heart failure Status: Chronic Problem Text: Not in acute exacerbation for now BNP minimally elevated, most likely secondary to atrial fibrillation with rapid ventricular rate Cardiac diet (5) COPD (chronic obstructive pulmonary disease) Status: Acute Problem Text: Auscultation positive for some Rales However, no wheezes We continued treatment with inhalers and by mouth steroids (6) Type 2 diabetes mellitus Status: Chronic Problem Text: Diabetes diet Detemir twice a day Insulin sliding scale Plan / VTE VTE Prophylaxis Ordered?: Yes JOHN MORALES DO Feb 02, 2020 16:57
[2020-02-02] MEDS ORDERED: METOPROLOL TART 25 MG TABLET PO ONE (17:00)
[2020-02-02 17:22] VITALS: BP 146/85
[2020-02-02 17:50] VITALS: BP 140/78
[2020-02-02 18:14] LABS: CK-MB VALUE MASS 1.2 NG/ML (<3.6); CPK CREATINE PHOSPHOKINASE 31 U/L (26-192); MB/CK RELATIVE INDEX 3.87 (< OR =4); TROPONIN I < 0.02 NG/ML (< 0.10)
[2020-02-02] MEDS: HumaLOG INSULIN (NovoLOG) PER UNIT SC SCH ×2 (18:26→20:17)
[2020-02-02 20:00] VITALS: BP 143/73
[2020-02-02] MEDS: ATORVASTATIN 20 MG TAB PO SCH (20:18)
[2020-02-02] MEDS: GABAPENTIN 300 MG CAP PO SCH (20:18)
[2020-02-02] MEDS: PARoxetine 20 MG TAB PO SCH (20:18)
[2020-02-02] MEDS: APIXABAN 5 MG TAB (ELIQUIS) PO SCH (20:18)
[2020-02-02] MEDS: oxyCODONE 5MG TAB PO PRN (20:22)
[2020-02-02] MEDS ORDERED: MAGNESIUM OXIDE 400 MG TAB (MAG-OX) PO ONE (20:30)
[2020-02-02] MEDS: ADVAIR HFA 230/21MCG INHALER INH SCH (20:36)
[2020-02-02] MEDS: NS 500 ML IV SCH (20:38)
[2020-02-02] MEDS ORDERED: LEVEMIR (INSULIN DETEMIR) 1 UNITS/0.01ML SC SCH (21:00)
[2020-02-02] MEDS ORDERED: METOPROLOL TART 25 MG TABLET PO SCH (21:00)
[2020-02-03] VITALS: BP 109/66
[2020-02-03 00:39] LABS: CK-MB VALUE MASS < 1.0 NG/ML (<3.6); CPK CREATINE PHOSPHOKINASE 44 U/L (26-192); MB/CK RELATIVE INDEX 2.27 (< OR =4); TROPONIN I < 0.02 NG/ML (< 0.10)
[2020-02-03 04:00] VITALS: BP 113/64
[2020-02-03] MEDS: NS 500 ML IV SCH (04:29)
[2020-02-03 04:35] LABS: BLOOD UREA NITROGEN 17 MG/DL (7-18); CALCIUM LEVEL 8.4 MG/DL (8.5-10.1); CARBON DIOXIDE LEVEL 38 MEQ/L (21-32); CHLORIDE LEVEL 94 MEQ/L (98-107); CREATININE FOR GFR 0.77 MG/DL (0.55-1.30); GLOMERULAR FILTRATION RATE > 60.0 (>51); GLUCOSE, FASTING 263 MG/DL (70-100); MAGNESIUM LEVEL 1.7 MG/DL (1.8-2.4); POTASSIUM SERUM 4.7 MEQ/L (3.5-5.1); SODIUM LEVEL 136 MEQ/L (136-145)
[2020-02-03] MEDS: LEVOTHYROXINE 25MCG TABLET (0.025MG) PO SCH (05:56)
[2020-02-03] MEDS: ADVAIR HFA 230/21MCG INHALER INH SCH ×2 (07:07→19:27)
--- NOTE | 2020-02-03 07:26 | REP ---
REASON: Dyspnea. COMPARISON: 01/08/2020, the latest prior. CONTRAST: 100 mL Isovue 370. There is excellent visualization of the pulmonary arterial vasculature. There are no focal filling defects present that would be considered consistent with pulmonary emboli. There are no pleural or pericardial effusions. There is no travon mediastinal or hilar adenopathy, however, there are multiple round lymph nodes in the mediastinum and pulmonary torie which have increased in size from the prior exam but do not meet the size criteria for adenopathy at this time. The imaged upper abdomen and imaged osseous structures are essentially unchanged. Evaluation of the lung lee again shows scattered asymmetric and curvilinear densities throughout the lung lee in a fashion unchanged from the prior exam. No new abnormal opacities have developed. IMPRESSION: No significant change in the appearance of the lung lee as described above. No evidence of a pulmonary embolus. Other findings as described above. Electronically Signed by Malvin Weiner DO 02/03/2020 08:56 A
[2020-02-03] MEDS ORDERED: MAG SULF 1GM/100ML (MAG RUN) 1 GM in IV 1 EA IV ONE (07:30)
[2020-02-03] MEDS: LEVEMIR (INSULIN DETEMIR) 1 UNITS/0.01ML SC SCH ×2 (07:55→20:13)
[2020-02-03] MEDS: HumaLOG INSULIN (NovoLOG) PER UNIT SC SCH ×4 (07:55→20:13)
[2020-02-03] MEDS: DULoxetine 30 MG CAP (CYMBALTA) PO SCH (07:56)
[2020-02-03] MEDS: GABAPENTIN 300 MG CAP PO SCH ×3 (07:56→20:14)
[2020-02-03] MEDS: predniSONE 20 MG TAB PO SCH (07:56)
[2020-02-03] MEDS: APIXABAN 5 MG TAB (ELIQUIS) PO SCH ×2 (07:56→20:14)
[2020-02-03 08:00] VITALS: BP 121/63
[2020-02-03] MEDS: FUROSEMIDE 40 MG TAB PO SCH (08:07)
[2020-02-03] MEDS: METOPROLOL TART 50 MG TAB PO SCH ×2 (08:08→20:14)
[2020-02-03 09:08] LABS: CK-MB VALUE MASS 1.2 NG/ML (<3.6); CPK CREATINE PHOSPHOKINASE 73 U/L (26-192); MB/CK RELATIVE INDEX 1.64 (< OR =4); TROPONIN I < 0.02 NG/ML (< 0.10)
[2020-02-03] MEDS: ALBUTEROL 90 MCG/ACT 8GM HFA INHALER INH PRN (09:16)
[2020-02-03] MEDS ORDERED: MAG SULF 1GM/100ML (MAG RUN) 1 GM in IV 1 EA IV SCH (11:15)
--- NOTE | 2020-02-03 11:36 | IPNPDOC ---
Text Note Date of Service The patient was seen on 02/03/20. NOTE Subjective: Patient complains of left chest pain, pin point, without radiation, for a few seconds, 7 out of 10, exacerbated by palpation. Patient denied fever or chills, nausea, vomiting, palpitations, diarrhea or dysuria Objective: VITAL SIGNS: Please see below. GENERAL: awake, alert, NAD HEENT: NCAT, anicteric sclera, EVANGELISTA NECK: supple, no JVD CARDIOVASCULAR EXAMINATION: NS1S2, tachycardic at rate 105 RESPIRATORY EXAMINATION: CTA b/l, no wheezes/rales/rhonchi ABDOMINAL EXAMINATION: positive bowel sounds x 4, NT EXTREMITIES: no cyanosis, clubbing, edema SKIN: warm, no rashes. NEUROLOGICAL EXAMINATION: AAO x 3, no motor/sensory deficits PSYCHIATRIC EXAMINATION: calm, normal affect Assessment/Plan Patient is 60 years old female with past medical history of COPD, oxygen dependent on 3 L of oxygen at home, diabetes mellitus, paroxysmal atrial fibrillation, hypothyroidism, hypertension and chronic neck pain presents from home with worsening shortness of breath. Patient stated that today around lunchtime she started feeling increased shortness of breath. In ER patient was found to have acute on chronic hypoxemic hypercapnic respiratory failure. Patient denied any fever, chills, nausea, vomiting, any change in sputum color. Also patient was found to have atrial fibrillation with rapid ventricular rate of 140-150. Dr. Ray was contacted by phone by ER doctor, he recommended IV digoxin 2 doses. Problems (1) Atrial fibrillation Patient developed atrial fibrillation with rapid ventricular rate Farm Implement Mechanic team recommended digoxin. Patient received 2 doses I reviewed her home medications, she was not on the beta blockers I will give beta blockers in was to control her rate We will check echo, Her last echocardiogram was during her 09/21/19 admission. Left atrium was normal size, ejection fraction normal at 60%, some diastolic dysfunction noted. Her heart rate is stable for now around 100-105, sinus tachycardia. I increased the dose of metoprolol to 50 mg twice a day (2) Acute and chronic respiratory failure ([id number]) Improved today Multifactorial Most likely attributed to atrial fibrillation with rapid ventricular rate (3) Dyspnea Most likely secondary to atrial fibrillation with rapid ventricular rate Patient chronically on the oxygen treatment 3 L home, today she is on her baseline Patient received digoxin and beta blockers Continue inhalers, prednisone 20 mg (4) Diastolic congestive heart failure Not in acute exacerbation for now BNP minimally elevated, most likely secondary to atrial fibrillation with rapid ventricular rate Cardiac diet (5) COPD (chronic obstructive pulmonary disease) Not in acute exacerbation Auscultation positive for some Rales However, no wheezes We continued treatment with inhalers and by mouth steroids (6) Type 2 diabetes mellitus Diabetes diet I increased the dose of detemir to twice a day due to her persistent hyperglycemia Insulin sliding scale Electrolytes imbalance Magnesium replaced VS,Fishbone, I+O VS, Fishbone, I+O Laboratory Tests 02/02/20 14:47 02/03/20 04:02 Vital Signs Date Time Temp Pulse Resp B/P (MAP) Pulse Ox O2 Delivery O2 Flow Rate FiO2 02/03/20 08:08 103 121/63 02/03/20 08:00 96.6 18 90 Nasal Cannula 3.0 I&O- Last 24 Hours up to 6 AM 02/03/20 06:00 Intake Total 1650 ml Output Total 800 ml Balance 850 ml JOHN MORALES DO Feb 03, 2020 11:36
[2020-02-03 12:00] VITALS: BP 118/60
[2020-02-03] MEDS ORDERED: METOPROLOL 5 MG/5 ML VIAL IV PRN (14:15)
--- NOTE | 2020-02-03 14:41 | ECGEPIP ---
[facility] Test Date: 2020-02-03 Pat Name: ARTHUR ALSTON Department: Room: [place] [address] Gender: Female Credit Historian: CLAUDIA : 1960 Requested By: JOHN MORALES Order Number: [id number] Reading MD: Amaury Walden Measurements Intervals [place] Rate: 105 P: 75 MD: 145 QRS: 67 QRSD: 85 T: 56 QT: 329 QTc: 435 Interpretive Statements SINUS TACHYCARDIA ABNORMAL RHYTHM ECG Decreased heart rate compared with 02/02/2020. Electronically Signed on 02-03-2020 14:41:32 EDT by Amaury Walden
[2020-02-03 16:00] VITALS: BP 114/69
[2020-02-03 20:00] VITALS: BP 143/68
[2020-02-03] MEDS: PARoxetine 20 MG TAB PO SCH (20:14)
[2020-02-03] MEDS: ATORVASTATIN 20 MG TAB PO SCH (20:15)
[2020-02-03] MEDS: oxyCODONE 5MG TAB PO PRN (20:15)
[2020-02-04] VITALS: BP 143/95
[2020-02-04 04:00] VITALS: BP 154/86
[2020-02-04] MEDS: LEVOTHYROXINE 25MCG TABLET (0.025MG) PO SCH (05:10)
[2020-02-04 05:43] LABS: HEMATOCRIT 30.2 % (36.0-47.0); HEMOGLOBIN 9.3 g/dl (12.0-15.5); MEAN CORPUSCULAR HEMOGLOBIN 30.3 pg (27.0-33.0); MEAN CORPUSCULAR HGB CONC 30.8 g/dl (32.0-36.5); MEAN CORPUSCULAR VOLUME 98.4 fl (80.0-96.0); PLATELET COUNT, AUTOMATED 366 10^3/uL (150-450); RED BLOOD COUNT 3.07 10^6/uL (4.00-5.40); WHITE BLOOD COUNT 8.6 10^3/uL (4.0-10.0)
[2020-02-04] MEDS: METOPROLOL TART 50 MG TAB PO SCH ×3 (06:00→21:04)
[2020-02-04 06:16] LABS: BLOOD UREA NITROGEN 19 MG/DL (7-18); CALCIUM LEVEL 8.8 MG/DL (8.5-10.1); CARBON DIOXIDE LEVEL 42 MEQ/L (21-32); CHLORIDE LEVEL 96 MEQ/L (98-107); GLOMERULAR FILTRATION RATE > 60.0 (>51); GLUCOSE, FASTING 129 MG/DL (70-100); POTASSIUM SERUM 4.7 MEQ/L (3.5-5.1); SODIUM LEVEL 140 MEQ/L (136-145)
[2020-02-04] MEDS: ADVAIR HFA 230/21MCG INHALER INH SCH ×2 (07:28→21:25)
[2020-02-04] MEDS: HumaLOG INSULIN (NovoLOG) PER UNIT SC SCH ×4 (07:44→20:14)
[2020-02-04 08:00] VITALS: BP 99/61
[2020-02-04] MEDS ORDERED: SLF 3 ML SYR IV PRN (08:30)
[2020-02-04] MEDS: APIXABAN 5 MG TAB (ELIQUIS) PO SCH ×2 (08:44→21:04)
[2020-02-04] MEDS: DULoxetine 30 MG CAP (CYMBALTA) PO SCH (08:44)
[2020-02-04] MEDS: predniSONE 20 MG TAB PO SCH (08:44)
[2020-02-04] MEDS: LevoFLOXacin 500 MG TABLET PO SCH (08:44)
[2020-02-04] MEDS: FUROSEMIDE 40 MG TAB PO SCH (08:44)
[2020-02-04] MEDS: GABAPENTIN 300 MG CAP PO SCH ×3 (08:45→21:04)
[2020-02-04] MEDS: LEVEMIR (INSULIN DETEMIR) 1 UNITS/0.01ML SC SCH ×2 (08:45→21:03)
--- NOTE | 2020-02-04 09:02 | ECGEPIP ---
[facility] - ED Test Date: 2020-02-02 Pat Name: ARTHUR ALSTON Department: Room: [place] [address] Gender: Female Stave Bolt Equalizer: GERRY : 1960 Requested By: Bala Angela Order Number: [id number] Reading MD: Loyda Kerns Measurements Intervals [place] Rate: 157 P: MN: 0 QRS: 58 QRSD: 68 T: 58 QT: 283 QTc: 457 Interpretive Statements SINUS TACHYCARDIA PACS ABNORMAL RHYTHM ECG NSTTW abnormalities Electronically Signed on 02-04-2020 9:01:39 EDT by Loyda Kerns
[2020-02-04 12:00] VITALS: BP 142/69
--- NOTE | 2020-02-04 12:16 | IPNPDOC ---
Text Note Date of Service The patient was seen on 02/04/20. NOTE Subjective: No any acute events overnight. Patient developed oxygen saturation around 84% during walking. Her oxygen requirements is high and around 6 L Patient denied fever or chills, nausea, vomiting, palpitations, diarrhea or dysuria Objective: VITAL SIGNS: Please see below. GENERAL: awake, alert, NAD HEENT: NCAT, anicteric sclera, EVANGELISTA NECK: supple, no JVD CARDIOVASCULAR EXAMINATION: NS1S2, tachycardic at rate 105 RESPIRATORY EXAMINATION: CTA b/l, no wheezes/rales/rhonchi ABDOMINAL EXAMINATION: positive bowel sounds x 4, NT EXTREMITIES: no cyanosis, clubbing, edema SKIN: warm, no rashes. NEUROLOGICAL EXAMINATION: AAO x 3, no motor/sensory deficits PSYCHIATRIC EXAMINATION: calm, normal affect Assessment/Plan Patient is 60 years old female with past medical history of COPD, oxygen dependent on 3 L of oxygen at home, diabetes mellitus, paroxysmal atrial fib rillation, hypothyroidism, hypertension and chronic neck pain presents from home with worsening shortness of breath. Patient stated that today around lunchtime she started feeling increased shortness of breath. In ER patient was found to have acute on chronic hypoxemic hypercapnic respiratory failure. Patient denied any fever, chills, nausea, vomiting, any change in sputum color. Also patient was found to have atrial fibrillation with rapid ventricular rate of 140-150. Dr. Ray was contacted by phone by ER doctor, he recommended IV digoxin 2 doses. Problems (1) Atrial fibrillation Patient developed atrial fibrillation with rapid ventricular rate Mumps Developer team recommended digoxin. Patient received 2 doses I reviewed her home medications, she was not on the beta blockers I will give beta blockers in was to control her rate We will check echo, Her last echocardiogram was during her 09/21/19 admission. Left atrium was normal size, ejection fraction normal at 60%, some diastolic dysfunction noted. I increased the dose of metoprolol to 50 mg TID (2) Acute and chronic respiratory failure ([id number]) Patient still has high oxygen requirements of 6 L when she walk Multifactorial Most likely attributed to atrial fibrillation with rapid ventricular rate (3) Dyspnea Most likely secondary to atrial fibrillation with rapid ventricular rate Patient chronically on the oxygen treatment 3 L home, today she is on her baseline Patient received digoxin and beta blockers Continue inhalers, prednisone 20 mg I added levofloxacin by mouth due to increased cough, most likely patient developed acute on chronic bronchitis. No increased sputum production PT/OT (4) Diastolic congestive heart failure Not in acute exacerbation for now BNP minimally elevated, most likely secondary to atrial fibrillation with rapid ventricular rate Cardiac diet (5) COPD (chronic obstructive pulmonary disease) Auscultation positive for some Rales, no wheezes, she stated that she has increased cough. We continued treatment with inhalers and by mouth steroids (6) Type 2 diabetes mellitus Diabetes diet I increased the dose of detemir to twice a day due to her persistent hyperglycemia Insulin sliding scale Electrolytes imbalance Magnesium replaced VS,Fishbone, I+O VS, Fishbone, I+O Laboratory Tests 02/04/20 05:31 Vital Signs Date Time Temp Pulse Resp B/P (MAP) Pulse Ox O2 Delivery O2 Flow Rate FiO2 02/04/20 08:00 6.0 02/04/20 08:00 98.8 104 22 99/61 (74) 92 High Flow Cannula I&O- Last 24 Hours up to 6 AM 02/04/20 05:59 Intake Total 930 ml Output Total 975 ml Balance -45 ml JOHN MORALES DO Feb 04, 2020 12:16
[2020-02-04] MEDS: SLF 3 ML SYR IV SCH ×2 (15:30→21:03)
[2020-02-04] MEDS: FUROSEMIDE 20MG/2ML VIAL (J1940) IV SCH ×2 (15:30→21:03)
[2020-02-04 16:00] VITALS: BP 139/90
--- NOTE | 2020-02-04 18:59 | ECHO ---
DATE OF PROCEDURE: 02/04/2020 REFERRING PHYSICIAN: Dr. Ortiz INDICATION: Dyspnea. Height 168 cm, weight 99 kg. DIMENSIONS: IVS: 1.0 LV: 4.4 LVPW: 1.0 LA: 3.5 Aorta: 2.8 IVC: 2.0 Mitral E wave velocity: 76 A wave: 100 E prime septal: 9.3 E prime lateral: 10.6 FINDINGS: The study is of rather limited technical quality with difficult visualization corresponding to underlying chronic obstructive pulmonary disease (COPD). The patient is in sinus tachycardia with frequent atrial ectopy and ventricular rate averaging about 110 beats per minute. Left ventricle is normal size and has grossly preserved systolic function, I estimate ejection fraction (EF) around 60%. No segmental wall motion abnormalities are appreciated. The right ventricle was poorly visualized but does not appear grossly dilated. Both atria appear normal. All four cardiac valves were somewhat reasonably seen and appear grossly normal. There is no significant pericardial effusion. Inferior vena cava is on upper limits of normal size but collapses with inspiration, indicative of likely mildly elevated central venous pressure. Aortic root and abdominal aorta appear normal. Aortic arch was not well seen. Doppler interrogation reveals competent aortic valve. There is trace mitral, tricuspid and pulmonic insufficiency. Calculated pulmonary artery pressure is in high 30s to low 40s corresponding to at least mild pulmonary hypertension. Mitral inflow pattern and tissue Doppler imaging of mitral annulus revealed grade 1 diastolic dysfunction. CONCLUSIONS: 1. Study is of fair technical quality corresponding to patient's body habitus, the patient is in sinus tachycardia with frequent premature atrial contractions (PACs). 2. Normal left ventricular (LV) size with preserved LV systolic function and grade 1 diastolic dysfunction. 3. Right ventricle does not appear enlarged but it was poorly visualized. 4. No significant valvular disease. 5. Suggestive of at least mildly elevated central venous pressure and at least mild pulmonary hypertension. COMMENT: Subacute bacterial endocarditis (SBE) prophylaxis is not recommended. MTDD
[2020-02-04 20:00] VITALS: BP_SYST 120; BP_DIAS 11; BP_DIAS 58; BP_DIAS 71
[2020-02-04] MEDS: PARoxetine 20 MG TAB PO SCH (21:03)
[2020-02-04] MEDS: oxyCODONE 5MG TAB PO PRN (21:04)
[2020-02-04] MEDS: ATORVASTATIN 20 MG TAB PO SCH (21:04)
[2020-02-05 04:00] VITALS: BP 119/71
[2020-02-05] MEDS: FUROSEMIDE 20MG/2ML VIAL (J1940) IV SCH ×3 (05:32→21:04)
[2020-02-05] MEDS: SLF 3 ML SYR IV SCH ×3 (05:33→21:06)
[2020-02-05] MEDS: METOPROLOL TART 50 MG TAB PO SCH ×3 (05:33→21:06)
[2020-02-05] MEDS: LEVOTHYROXINE 25MCG TABLET (0.025MG) PO SCH (05:34)
[2020-02-05] MEDS: LevoFLOXacin 500 MG TABLET PO SCH (05:34)
[2020-02-05 06:05] LABS: HEMATOCRIT 31.7 % (36.0-47.0); HEMOGLOBIN 9.5 g/dl (12.0-15.5); PLATELET COUNT, AUTOMATED 382 10^3/uL (150-450); RED BLOOD COUNT 3.17 10^6/uL (4.00-5.40); WHITE BLOOD COUNT 8.8 10^3/uL (4.0-10.0)
[2020-02-05 06:51] LABS: BLOOD UREA NITROGEN 18 MG/DL (7-18); CALCIUM LEVEL 8.7 MG/DL (8.5-10.1); CARBON DIOXIDE LEVEL 48 MEQ/L (21-32); CHLORIDE LEVEL 92 MEQ/L (98-107); GLOMERULAR FILTRATION RATE > 60.0 (>51); GLUCOSE, FASTING 135 MG/DL (70-100); POTASSIUM SERUM 3.6 MEQ/L (3.5-5.1); SODIUM LEVEL 141 MEQ/L (136-145)
[2020-02-05] MEDS: ADVAIR HFA 230/21MCG INHALER INH SCH ×2 (07:29→20:54)
[2020-02-05 08:00] VITALS: BP 132/77
[2020-02-05] MEDS: GABAPENTIN 300 MG CAP PO SCH ×3 (08:25→21:05)
[2020-02-05] MEDS: predniSONE 20 MG TAB PO SCH (08:25)
[2020-02-05] MEDS: APIXABAN 5 MG TAB (ELIQUIS) PO SCH ×2 (08:26→21:05)
[2020-02-05] MEDS: DULoxetine 30 MG CAP (CYMBALTA) PO SCH (08:26)
[2020-02-05] MEDS: LEVEMIR (INSULIN DETEMIR) 1 UNITS/0.01ML SC SCH ×2 (08:27→21:04)
[2020-02-05] MEDS: HumaLOG INSULIN (NovoLOG) PER UNIT SC SCH ×4 (08:27→20:08)
[2020-02-05] MEDS ORDERED: POTASSIUM CHLORIDE 10 MEQ SR TABLET PO ONE (09:00)
[2020-02-05] MEDS ORDERED: TOPR100T PO (10:19)
[2020-02-05] MEDS ORDERED: LEVA1TAB2 PO (10:19)
[2020-02-05] MEDS ORDERED: PRED5PAK PO (10:22)
[2020-02-05 12:00] VITALS: BP 125/74
--- NOTE | 2020-02-05 13:14 | IPNPDOC ---
Text Note Date of Service The patient was seen on 02/05/20. NOTE Subjective: No any acute events overnight. Patient developed oxygen saturation around 83% during walking. Her oxygen requirements is still high and around 5 L today Patient denied fever or chills, nausea, vomiting, palpitations, diarrhea or dysuria Objective: VITAL SIGNS: Please see below. GENERAL: awake, alert, NAD HEENT: NCAT, anicteric sclera, EVANGELISTA NECK: supple, no JVD CARDIOVASCULAR EXAMINATION: NS1S2, tachycardic at rate 105 RESPIRATORY EXAMINATION: CTA b/l, no wheezes/rales/rhonchi ABDOMINAL EXAMINATION: positive bowel sounds x 4, NT EXTREMITIES: no cyanosis, clubbing, edema SKIN: warm, no rashes. NEUROLOGICAL EXAMINATION: AAO x 3, no motor/sensory deficits PSYCHIATRIC EXAMINATION: calm, normal affect Assessment/Plan Patient is 60 years old female with past medical history of COPD, oxygen dependent on 3 L of oxygen at home, diabetes mellitus, paroxysmal atrial fibrillation, hypothyroidism, hypertension and chronic neck pain presents from home with worsening shortness of breath. Patient stated that today around lunchtime she started feeling increased shortness of breath. In ER patient was found to have acute on chronic hypoxemic hypercapnic respiratory failure. Patient denied any fever, chills, nausea, vomiting, any change in sputum color. Also patient was found to have atrial fibrillation with rapid ventricular rate of 140-150. Dr. Ray was contacted by phone by ER doctor, he recommended IV digoxin 2 doses. Problems (1) Atrial fibrillation Heart rate currently is under control Patient developed atrial fibrillation with rapid ventricular rate Tip Inserter team recommended digoxin. Patient received 2 doses I reviewed her home medications, she was not on the beta blockers I will give beta blockers to control her rate Her last echocardiogram was during her 09/21/19 admission. Left atrium was normal size, ejection fraction normal at 60%, some diastolic dysfunction noted. Echo was done on this admission and showed: Normal left ventricular (LV) size with preserved LV systolic function and grade 1 diastolic dysfunction I increased the dose of metoprolol to 50 mg TID (2) Acute and chronic respiratory failure ([id number]-[id number]) Patient still has high oxygen requirements of 5 L when she walk. Multifactorial due to COPD, deconditioning and atrial fibrillation rapid ventricular rate (3) Dyspnea Most likely secondary to atrial fibrillation with rapid ventricular rate on the admission Patient chronically on the oxygen treatment 3 L home Patient received digoxin and beta blockers Continue inhalers, prednisone 20 mg I added levofloxacin by mouth due to increased cough, most likely patient developed acute on chronic bronchitis. No increased sputum production PT/OT (4) Diastolic congestive heart failure Not in acute exacerbation for now BNP minimally elevated, most likely secondary to atrial fibrillation with rapid ventricular rate Cardiac diet (5) COPD (chronic obstructive pulmonary disease) Auscultation positive for some Rales, no wheezes, she stated that she has increased cough. We continued treatment with inhalers and by mouth steroids (6) Type 2 diabetes mellitus Glucose levels under control Diabetes diet I increased the dose of detemir to twice a day due to her persistent hyperglycemia Insulin sliding scale Electrolytes imbalance Magnesium replaced VS,Fishbone, I+O VS, Fishbone, I+O Laboratory Tests 02/05/20 05:37 Vital Signs Date Time Temp Pulse Resp B/P (MAP) Pulse Ox O2 Delivery O2 Flow Rate FiO2 02/05/20 12:14 4.0 02/05/20 12:00 96.2 88 24 125/74 (91) 95 Nasal Cannula I&O- Last 24 Hours up to 6 AM 02/05/20 06:00 Intake Total 2820 ml Output Total 4375 ml Balance -1555 ml JOHN MORALES DO Feb 05, 2020 13:14
[2020-02-05 16:00] VITALS: BP 126/70
[2020-02-05] MEDS: ALBUTEROL 90 MCG/ACT 8GM HFA INHALER INH PRN (16:08)
[2020-02-05 20:00] VITALS: BP 115/57
[2020-02-05] MEDS: PARoxetine 20 MG TAB PO SCH (21:05)
[2020-02-05] MEDS: ATORVASTATIN 20 MG TAB PO SCH (21:05)
[2020-02-05] MEDS: oxyCODONE 5MG TAB PO PRN (21:05)
[2020-02-06] VITALS (7 sets, daily range): BP systolic 82–139; BP diastolic 48–80
[2020-02-06] MEDS: LevoFLOXacin 500 MG TABLET PO SCH (05:14)
[2020-02-06] MEDS: SLF 3 ML SYR IV SCH ×3 (05:14→21:21)
[2020-02-06] MEDS: FUROSEMIDE 20MG/2ML VIAL (J1940) IV SCH (05:14)
[2020-02-06] MEDS: METOPROLOL TART 50 MG TAB PO SCH ×2 (05:14→21:20)
[2020-02-06] MEDS: LEVOTHYROXINE 25MCG TABLET (0.025MG) PO SCH (05:14)
[2020-02-06 06:29] LABS: HEMATOCRIT 34.1 % (36.0-47.0); HEMOGLOBIN 10.4 g/dl (12.0-15.5); MEAN CORPUSCULAR HEMOGLOBIN 30.2 pg (27.0-33.0); MEAN CORPUSCULAR HGB CONC 30.5 g/dl (32.0-36.5); MEAN CORPUSCULAR VOLUME 99.1 fl (80.0-96.0); PLATELET COUNT, AUTOMATED 433 10^3/uL (150-450); RED BLOOD COUNT 3.44 10^6/uL (4.00-5.40); WHITE BLOOD COUNT 8.3 10^3/uL (4.0-10.0)
[2020-02-06 07:10] LABS: BLOOD UREA NITROGEN 21 MG/DL (7-18); CALCIUM LEVEL 9.4 MG/DL (8.5-10.1); CARBON DIOXIDE LEVEL 45 MEQ/L (21-32); CHLORIDE LEVEL 93 MEQ/L (98-107); CREATININE FOR GFR 0.78 MG/DL (0.55-1.30); GLOMERULAR FILTRATION RATE > 60.0 (>51); GLUCOSE, FASTING 104 MG/DL (70-100); POTASSIUM SERUM 3.7 MEQ/L (3.5-5.1); SODIUM LEVEL 141 MEQ/L (136-145)
[2020-02-06] MEDS: ADVAIR HFA 230/21MCG INHALER INH SCH ×2 (07:18→19:41)
[2020-02-06] MEDS: HumaLOG INSULIN (NovoLOG) PER UNIT SC SCH ×4 (07:30→21:00)
[2020-02-06] MEDS ORDERED: POTASSIUM CHLORIDE 10 MEQ SR TABLET PO ONE (07:45)
[2020-02-06] MEDS: APIXABAN 5 MG TAB (ELIQUIS) PO SCH ×2 (08:21→21:19)
[2020-02-06] MEDS: GABAPENTIN 300 MG CAP PO SCH ×3 (08:21→21:20)
[2020-02-06] MEDS: predniSONE 20 MG TAB PO SCH (08:22)
[2020-02-06] MEDS: DULoxetine 30 MG CAP (CYMBALTA) PO SCH (08:22)
[2020-02-06] MEDS: LEVEMIR (INSULIN DETEMIR) 1 UNITS/0.01ML SC SCH ×2 (08:25→21:21)
[2020-02-06] MEDS ORDERED: NS 250 ML IV ONE (10:00)
[2020-02-06] MEDS ORDERED: TOPR100T PO (10:42)
--- NOTE | 2020-02-06 12:49 | IPNPDOC ---
Text Note Date of Service The patient was seen on 02/06/20. NOTE Subjective: No any acute events overnight. Patient developed oxygen saturation around 82% during walking. Her oxygen requirements is in her baseline 3 L. Patient developed hypotension in the morning with blood pressure 85/60. Patient denied fever or chills, nausea, vomiting, palpitations, diarrhea or dysuria Objective: VITAL SIGNS: Please see below. GENERAL: awake, alert, NAD HEENT: NCAT, anicteric sclera, EVANGELISTA NECK: supple, no JVD CARDIOVASCULAR EXAMINATION: NS1S2, tachycardic at rate 105 RESPIRATORY EXAMINATION: CTA b/l, no wheezes/rales/rhonchi ABDOMINAL EXAMINATION: positive bowel sounds x 4, NT EXTREMITIES: no cyanosis, clubbing, edema SKIN: warm, no rashes. NEUROLOGICAL EXAMINATION: AAO x 3, no motor/sensory deficits PSYCHIATRIC EXAMINATION: calm, normal affect Assessment/Plan Patient is 60 years old female with past medical history of COPD, oxygen dep endent on 3 L of oxygen at home, diabetes mellitus, paroxysmal atrial fibrillation, hypothyroidism, hypertension and chronic neck pain presents from home with worsening shortness of breath. Patient stated that today around lunchtime she started feeling increased shortness of breath. In ER patient was found to have acute on chronic hypoxemic hypercapnic respiratory failure. Patient denied any fever, chills, nausea, vomiting, any change in sputum color. Also patient was found to have atrial fibrillation with rapid ventricular rate of 140-150. Dr. Ray was contacted by phone by ER doctor, he recommended IV digoxin 2 doses. Problems (1) Atrial fibrillation Heart rate currently is under control Patient developed atrial fibrillation with rapid ventricular rate Surgical Resident team recommended digoxin. Patient received 2 doses I reviewed her home medications, she was not on the beta blockers I will give beta blockers to control her rate Her last echocardiogram was during her 09/21/19 admission. Left atrium was normal size, ejection fraction normal at 60%, some diastolic dysfunction noted. Echo was done on this admission and showed: Normal left ventricular (LV) size with preserved LV systolic function and grade 1 diastolic dysfunction Due to hypotension I decreased the dose of metoprolol to 50 twice a day (2) Acute and chronic respiratory failure ([id number]) Patient still has high oxygen requirements of 5 L when she walk. Multifactorial due to COPD, deconditioning and atrial fibrillation rapid ventricular rate (3) Dyspnea Most likely secondary to atrial fibrillation with rapid ventricular rate on the admission Patient chronically on the oxygen treatment 3 L home Patient received digoxin and beta blockers Continue inhalers, prednisone 20 mg I added levofloxacin by mouth due to increased cough, most likely patient developed acute on chronic bronchitis. No increased sputum production PT/OT (4) Diastolic congestive heart failure Not in acute exacerbation for now BNP minimally elevated, most likely secondary to atrial fibrillation with rapid ventricular rate Cardiac diet (5) COPD (chronic obstructive pulmonary disease) Auscultation positive for some Rales, no wheezes, she stated that she has increased cough. We continued treatment with inhalers and by mouth steroids (6) Type 2 diabetes mellitus Glucose levels under control Diabetes diet I increased the dose of detemir to twice a day due to her persistent hyperglycemia Insulin sliding scale Electrolytes imbalance Magnesium replaced Hypotension I decreased the dose of metoprolol to 50 mg twice a day DC IV Lasix VS,Fishbone, I+O VS, Fishbone, I+O Laboratory Tests 02/06/20 06:19 Vital Signs Date Time Temp Pulse Resp B/P (MAP) Pulse Ox O2 Delivery O2 Flow Rate FiO2 02/06/20 12:00 98.3 101 22 110/63 (79) 84 Nasal Cannula 3.0 I&O- Last 24 Hours up to 6 AM 02/06/20 05:59 Intake Total 1390 ml Output Total 2050 ml Balance -660 ml JOHN MORALES DO Feb 06, 2020 12:49
[2020-02-06] MEDS: ATORVASTATIN 20 MG TAB PO SCH (21:19)
[2020-02-06] MEDS: PARoxetine 20 MG TAB PO SCH (21:20)
[2020-02-07 06:00] VITALS: BP 139/70
[2020-02-07] MEDS: SLF 3 ML SYR IV SCH (06:00)
[2020-02-07] MEDS: LEVOTHYROXINE 25MCG TABLET (0.025MG) PO SCH (06:02)
[2020-02-07] MEDS: LevoFLOXacin 500 MG TABLET PO SCH (06:02)
[2020-02-07] MEDS: ADVAIR HFA 230/21MCG INHALER INH SCH (07:19)
[2020-02-07 08:05] LABS: HEMATOCRIT 32.8 % (36.0-47.0); HEMOGLOBIN 9.8 g/dl (12.0-15.5); MEAN CORPUSCULAR HEMOGLOBIN 29.7 pg (27.0-33.0); MEAN CORPUSCULAR HGB CONC 29.9 g/dl (32.0-36.5); MEAN CORPUSCULAR VOLUME 99.4 fl (80.0-96.0); PLATELET COUNT, AUTOMATED 426 10^3/uL (150-450); WHITE BLOOD COUNT 7.8 10^3/uL (4.0-10.0)
[2020-02-07 08:32] LABS: BLOOD UREA NITROGEN 26 MG/DL (7-18); CALCIUM LEVEL 8.5 MG/DL (8.5-10.1); CARBON DIOXIDE LEVEL 38 MEQ/L (21-32); CHLORIDE LEVEL 98 MEQ/L (98-107); CREATININE FOR GFR 0.69 MG/DL (0.55-1.30); GLOMERULAR FILTRATION RATE > 60.0 (>51); GLUCOSE, FASTING 131 MG/DL (70-100); POTASSIUM SERUM 4.1 MEQ/L (3.5-5.1); SODIUM LEVEL 141 MEQ/L (136-145)
[2020-02-07] MEDS: HumaLOG INSULIN (NovoLOG) PER UNIT SC SCH (08:45)
[2020-02-07] MEDS: DULoxetine 30 MG CAP (CYMBALTA) PO SCH (08:48)
[2020-02-07] MEDS: LEVEMIR (INSULIN DETEMIR) 1 UNITS/0.01ML SC SCH (08:50)
[2020-02-07 08:52] VITALS: BP 107/74
[2020-02-07] MEDS: predniSONE 20 MG TAB PO SCH (08:52)
[2020-02-07] MEDS: METOPROLOL TART 50 MG TAB PO SCH (08:52)
[2020-02-07] MEDS: APIXABAN 5 MG TAB (ELIQUIS) PO SCH (08:52)
[2020-02-07] MEDS ORDERED: FUROSEMIDE 40 MG TAB PO SCH (09:00)
--- NOTE | 2020-02-07 13:15 | DS.PDOC ---
Discharge Summary General Date of Admission Feb 02, 2020 at 16:18 Date of Discharge 02/07/20 Discharge Summary PROCEDURES PERFORMED DURING STAY: [None]. ADMITTING DIAGNOSES: Atrial fibrillation Acute and chronic respiratory failure ([id number]) Dyspnea COPD (chronic obstructive pulmonary disease) Type 2 diabetes mellitus Electrolytes imbalance Hypotension DISCHARGE DIAGNOSES: Atrial fibrillation Acute and chronic respiratory failure ([id number]-[id number]) Dyspnea COPD (chronic obstructive pulmonary disease) Type 2 diabetes mellitus Electrolytes imbalance Hypotension COMPLICATIONS/CHIEF COMPLAINT: Atrial Fibrillation With Rvr. HISTORY OF PRESENT ILLNESS: Patient is 60 years old female with past medical history of COPD, oxygen dependent on 3 L of oxygen at home, diabetes mellitus, paroxysmal atrial fibrillation, hypothyroidism, hypertension and chronic neck pain presents from home with worsening shortness of breath. Patient stated that today around lunchtime she started feeling increased shortness of breath. In ER patient was found to have acute on chronic hypoxemic hypercapnic respiratory failure. Patient denied any fever, chills, nausea, vomiting, any change in sputum color. Also patient was found to have atrial fibrillation with rapid ventricular rate of 140-150. Dr. Ray was contacted by phone by ER doctor, he recommended IV digoxin 2 doses. HOSPITAL COURSE: During hospital stay the following issue addressed (1) Atrial fibrillation Heart rate currently is under control Patient developed atrial fibrillation with rapid ventricular rate Hr Administrative Assistant team recommended digoxin. Patient received 2 doses I reviewed her home medications, she was not on the beta blockers Patient received treatment with beta blockers Her last echocardiogram was during her 09/21/19 admission. Left atrium was normal size, ejection fraction normal at 60%, some diastolic dysfunction noted. Echo was done on this admission and showed: Normal left ventricular (LV) size with preserved LV systolic function and grade 1 diastolic dysfunction Due to hypotension I decreased the dose of metoprolol to 50 twice a day (2) Acute and chronic respiratory failure ([id number]-ih-[id number]) Patient still has high oxygen requirements of 5 L when she walk. Multifactorial due to COPD, deconditioning and atrial fibrillation rapid ventricular rate Patient will benefit from pulmonary rehabilitation (3) Dyspnea Most likely secondary to atrial fibrillation with rapid ventricular rate on the admission Patient chronically on the oxygen treatment 3 L home Patient received digoxin and beta blockers Continue inhalers, prednisone 20 mg I added levofloxacin by mouth due to increased cough, most likely patient d eveloped acute on chronic bronchitis. No increased sputum production PT/OT (4) Diastolic congestive heart failure Not in acute exacerbation for now BNP minimally elevated, most likely secondary to atrial fibrillation with rapid ventricular rate Cardiac diet (5) COPD (chronic obstructive pulmonary disease) Auscultation positive for some Rales, no wheezes, she stated that she has increased cough. We continued treatment with inhalers and by mouth steroids (6) Type 2 diabetes mellitus Glucose levels under control Diabetes diet I increased the dose of detemir to twice a day due to her persistent hyperglycemia Insulin sliding scale Electrolytes imbalance Magnesium replaced Hypotension I decreased the dose of metoprolol to 50 mg twice a day DISCHARGE MEDICATIONS: Please see below. ALLERGIES: Please see below. PHYSICAL EXAMINATION ON DISCHARGE: VITAL SIGNS: Please see below. GENERAL: awake, alert, NAD HEENT: NCAT, anicteric sclera, EVANGELISTA NECK: supple, no JVD CARDIOVASCULAR EXAMINATION: NS1S2, tachycardic at rate 105 RESPIRATORY EXAMINATION: CTA b/l, no wheezes/rales/rhonchi ABDOMINAL EXAMINATION: positive bowel sounds x 4, NT EXTREMITIES: no cyanosis, clubbing, edema SKIN: warm, no rashes. NEUROLOGICAL EXAMINATION: AAO x 3, no motor/sensory deficits PSYCHIATRIC EXAMINATION: calm, normal affect LABORATORY DATA: Please see below. IMAGING:REASON: Dyspnea. COMPARISON: 01/08/2020, the latest prior. CONTRAST: 100 mL Isovue 370. There is excellent visualization of the pulmonary arterial vasculature. There are no focal filling defects present that would be considered consistent with pulmonary emboli. There are no pleural or pericardial effusions. There is no travon mediastinal or hilar adenopathy, however, there are multiple round lymph nodes in the mediastinum and pulmonary torie which have increased in size from the prior exam but do not meet the size criteria for adenopathy at this time. The imaged upper abdomen and imaged osseous structures are essentially unchanged. Evaluation of the lung lee again shows scattered asymmetric and curvilinear densities throughout the lung lee in a fashion unchanged from the prior exam. No new abnormal opacities have developed. IMPRESSION: No significant change in the appearance of the lung lee as described above. No evidence of a pulmonary embolus. Other findings as described above. Electronically Signed by Malvin Weiner DO 02/03/2020 08:56 A DD: Malvin Weiner MD, DO 02/02/20 1642 DT: JASMEET 02/03/20 0726 DS: SONNY 02/03/20 0856 02/03/20 0856 PROGNOSIS: Fair ACTIVITY: [As tolerated]. DIET: Cardiac DISPOSITION: 01 Home, Self-Care. DISCHARGE INSTRUCTIONS: Continue recommended medications. Oxygen 24 hours in a day ITEMS TO FOLLOWUP ON ON OUTPATIENT: Follow-up with email marketing coordinator, estate attorney and PCP DISCHARGE CONDITION: [Stable]. TIME SPENT ON DISCHARGE: Greater than 20 minutes. Vital Signs/I&Os Vital Signs Date Time Temp Pulse Resp B/P (MAP) Pulse Ox O2 Delivery O2 Flow Rate FiO2 02/07/20 09:00 3.0 02/07/20 08:52 74 107/74 02/07/20 06:00 97.6 19 91 Nasal Cannula I&O- Last 24 Hours up to 6 AM 02/07/20 06:00 Intake Total 1340 ml Output Total 500 ml Balance 840 ml Laboratory Data Labs 24H Laboratory Tests 2 02/06/20 16:32: Bedside Glucose (Misc Panel) 223H 02/06/20 21:13: Bedside Glucose (Misc Panel) 211H 02/07/20 05:30: Bedside Glucose (Misc Panel) 121H 02/07/20 07:48: Nucleated Red Blood Cells % (auto) 1.7H, Anion Gap 5L, Glomerular Filtration Rate > 60.0, Calcium Level 8.5 02/07/20 11:22: Bedside Glucose (Misc Panel) 184H CBC/BMP Laboratory Tests 02/07/20 07:48 FSBS Laboratory Tests Test 02/06/20 16:32 02/06/20 21:13 02/07/20 05:30 02/07/20 11:22 Range/Units Bedside Glucose (Misc Panel) 223 211 121 184 70-105 MG/DL Microbiology Microbiology 02/02/20 Blood Culture - Preliminary, Resulted No Growth after 72 hours. All specime... 02/02/20 Respiratory Virus Panel (PCR) (K[facility]UNA) - Final, Complete 02/02/20 Blood Culture - Preliminary, Resulted No Growth after 72 hours. All specime... Discharge Medications Scheduled Apixaban (Eliquis) 5 Mg Tablet, 5 MG PO BID, (Reported) Atorvastatin Calcium (Atorvastatin Calcium) 20 Mg Tab, 20 MG PO QHS, (Reported) Dexlansoprazole (Dexilant) 60 Mg Cap, 60 MG PO DAILY, (Reported) Duloxetine Hcl (Duloxetine HCl) 60 Mg Capsule.dr, 60 MG PO DAILY, (Reported) Furosemide (Furosemide) 40 Mg Tablet, 40 MG PO DAILY, (Reported) Gabapentin (Gabapentin) 600 Mg Tab, 600 MG PO TID, (Reported) Insulin Detemir (Levemir) 100 Unit/1 Ml Vial, 20 UNITS SC QHS, (Reported) Levofloxacin (Levaquin) 500 Mg Tablet, 500 MG PO DAILY@06 Levothyroxine Sodium (Levothyroxine Sodium) 25 Mcg Tablet, 25 MCG PO DAILY, (Reported) Metformin HCl (Glucophage Xr) 500 Mg Tab.er.24h, 1,000 MG PO BID, (Reported) Metoprolol Succinate (Toprol Xl) 100 Mg Tab.er.24h, 100 MG PO DAILY Olanzapine (Olanzapine) 5 Mg Tablet, 5 MG PO DAILY, (Reported) Paroxetine HCl (Paroxetine HCl) 40 Mg Tab, 40 MG PO QHS, (Reported) Plecanatide (Trulance) 3 Mg Tablet, 3 MG PO QHS, (Reported) Prednisone (Prednisone) 5 Mg Tab.ds.pk, 0 PO ASDIRECTED 6 day dose pack taper Salmeterol/Fluticasone (Advair 500-50 Diskus) 1 Each Blst.w.dev, 1 PUFF INH BID, (Reported) Umeclidinium [place] (Incruse Ellipta) 62.5 Mcg/Inh Inh, 1 PUFF INH DAILY, (Reported) TAKES AT NOON Scheduled PRN Albuterol Sulfate (Ventolin Hfa) 18 Gm Hfa.aer.ad, 2 PUFF INH Q4H PRN for SHORTNESS OF BREATH, (Reported) Oxycodone HCl (Oxycodone HCl) 5 Mg Tab, 5 MG PO BID PRN for PAIN, (Reported) Allergies Coded Allergies: No Known Allergies (Verified Allergy, Unknown, 12/09/19) JOHN MORALES DO Feb 07, 2020 13:15
== END 2020-02-07 11:45 | disposition home health service (06) | DRG 189 ==
LOC: M ED 14:16 → M ED INP 16:18 → ENRESERV 16:37 → M PCU 17:07 → M MSPAV 02-03 13:00
PROVIDERS: ADMIT Internal Medicine; ATTEND Internal Medicine
DX: J96.21 Acute and chronic respiratory failure with hypoxia (principal); I50.32 Chronic diastolic (congestive) heart failure; J44.1 Chronic obstructive pulmonary disease with (acute) exacerbation; I48.0 Paroxysmal atrial fibrillation; E11.9 Type 2 diabetes mellitus without complications; I95.9 Hypotension, unspecified; Z99.81 Dependence on supplemental oxygen; E03.9 Hypothyroidism, unspecified; M54.2 Cervicalgia; E83.42 Hypomagnesemia; Z79.899 Other long term (current) drug therapy; J96.22 Acute and chronic respiratory failure with hypercapnia; E78.5 Hyperlipidemia, unspecified; Z87.891 Personal history of nicotine dependence

== ENCOUNTER → 2020-02-13 | Outpatient (REF) | payer MEDICARE, MEDICAID ==
[~2020-02-13] MED LIST changes: +METF-839 PO; +METO50TA7 PO; +PRED5PAK PO; +TOPR100T PO
[2020-02-13 13:24] LABS: HEMATOCRIT 37.6 % (36.0-47.0); HEMOGLOBIN 11.3 g/dl (12.0-15.5); MEAN CORPUSCULAR HEMOGLOBIN 29.2 pg (27.0-33.0); MEAN CORPUSCULAR HGB CONC 30.1 g/dl (32.0-36.5); MEAN CORPUSCULAR VOLUME 97.2 fl (80.0-96.0); PLATELET COUNT, AUTOMATED 372 10^3/uL (150-450); RED BLOOD COUNT 3.87 10^6/uL (4.00-5.40); WHITE BLOOD COUNT 9.9 10^3/uL (4.0-10.0)
[2020-02-13 13:44] LABS: ATYPICAL LYMPH 3 % (0-5); LYMPHOCYTES 29 % (16-44); METAMYELOCYTES 2 % (0-0); MONOCYTES 6 % (0-5); NEUTROPHILS 60 % (28-66)
[2020-02-13 13:46] LABS: ANISOCYTOSIS 1+; POLYCHROMASIA 1+; STOMATOCYTES 1+
[2020-02-13 13:48] LABS: HEMOGLOBIN A1c 9.1 %; PLATELET ESTIMATE NORMAL (NORMAL)
[2020-02-13 14:10] LABS: ALBUMIN 3.3 GM/DL (3.2-5.2); ALT/SGPT 27 U/L (12-78); BILIRUBIN,TOTAL 0.6 MG/DL (0.2-1.0); BLOOD UREA NITROGEN 19 MG/DL (7-18); CALCIUM LEVEL 8.8 MG/DL (8.5-10.1); CARBON DIOXIDE LEVEL 37 MEQ/L (21-32); CHLORIDE LEVEL 94 MEQ/L (98-107); CHOLESTEROL LEVEL 160 MG/DL (<200); CHOLESTEROL RISK RATIO 2.388 (<5); CREATININE FOR GFR 0.69 MG/DL (0.55-1.30); FERRITIN 24 NG/ML (8-252); GLOMERULAR FILTRATION RATE > 60.0 (>51); GLUCOSE, FASTING 79 MG/DL (70-100); HDL CHOLESTEROL 67 MG/DL (>40); IRON (FE) 65 UG/DL (50-170); LDL CHOLESTEROL 60 MG/DL (<100); MAGNESIUM LEVEL 1.8 MG/DL (1.8-2.4); NON-HDL-C 93 MG/DL; PERCENT SATURATION 15.3 % (13.2-45.0); POTASSIUM SERUM 3.7 MEQ/L (3.5-5.1); SODIUM LEVEL 138 MEQ/L (136-145); TOTAL IRON BINDING CAPACITY 425 UG/DL (250-450); TOTAL PROTEIN 6.6 GM/DL (6.4-8.2); TRIGLYCERIDES LEVEL 163 MG/DL (<150)
== END ==
LOC: M SFHCADAM 10:43
PROVIDERS: ATTEND Physician Assistant Medical
DX: J44.9 Chronic obstructive pulmonary disease, unspecified (principal); E11.9 Type 2 diabetes mellitus without complications; I50.32 Chronic diastolic (congestive) heart failure; J96.11 Chronic respiratory failure with hypoxia; E83.42 Hypomagnesemia; D50.8 Other iron deficiency anemias
CPT/HCPCS: 80053; 80061; 82728; 83036; 83550; 83735; 84443; 85025; 99496; G0463

== ENCOUNTER 2020-02-22 05:21 | Inpatient (IN) | payer MEDICARE, MEDICAID ==
[~2020-02-22] VITALS: Ht 167.6 cm; Wt 96.5 kg
[2020-02-22] VITALS (18 sets, daily range): BP systolic 127–140; BP diastolic 68–81; O2SAT 83–99
[~2020-02-22 05:21] MED LIST changes: -METF-839 PO; -METO50TA7 PO
[2020-02-22 05:52] LABS: VENOUS BASE EXCESS 13.4 (-2.0-2.0); VENOUS HCO3 40.1 MEQ/L (23.0-27.0); VENOUS O2 SATURATION 99.4 % (60.0-80.0); VENOUS PARTIAL PRESSURE CO2 61.7 mmHg (38.0-50.0); VENOUS PARTIAL PRESSURE O2 177.9 mmHg (30.0-50.0); VENOUS PH 7.431 UNITS (7.330-7.430); VENOUS STANDARD HCO3 37.3 MEQ/L
[2020-02-22 05:59] LABS: BASO % 0.4 % (0.0-1.0); EOS # 0.1 10^3/uL (0.0-0.5); EOS % 1.1 % (0.0-3.0); LYMPH # 1.8 10^3/uL (1.5-5.0); LYMPH % 17.8 % (24.0-44.0); MEAN CORPUSCULAR HEMOGLOBIN 28.9 pg (27.0-33.0); MEAN CORPUSCULAR HGB CONC 30.6 g/dl (32.0-36.5); MEAN CORPUSCULAR VOLUME 94.5 fl (80.0-96.0); MONO # 0.7 10^3/uL (0.0-0.8); MONO % 7.1 % (0.0-5.0); NEUTROPHILS # 7.1 10^3/uL (1.5-8.5); NEUTROPHILS % 71.7 % (36.0-66.0); PLATELET COUNT, AUTOMATED 271 10^3/uL (150-450); RED BLOOD COUNT 3.81 10^6/uL (4.00-5.40); WHITE BLOOD COUNT 9.9 10^3/uL (4.0-10.0)
--- NOTE | 2020-02-22 06:40 | ECGEPIP ---
[facility] - ED Test Date: 2020-02-22 Pat Name: ARTHUR ALSTON Department: Room: - Gender: Female Ocular Pathologist: kerrie : 1960 Requested By: QUENTIN Murillo Order Number: [id number] Reading MD: Bala Angela Measurements Intervals [place] Rate: 112 P: 71 [place]: 156 QRS: 67 QRSD: 72 T: 69 QT: 335 QTc: 458 Interpretive Statements SINUS TACHYCARDIA ABNORMAL RHYTHM ECG NONSPECIFIC ST T [facility] 02/03/[address] T [facility] Electronically Signed on 02-22-2020 6:40:27 EDT by Bala Angela
[2020-02-22] MEDS: COMBIVENT RESPIMAT 100-20MCG INHALER 4GM INH SCH ×3 (06:42→08:04)
[2020-02-22] MEDS ORDERED: ISOVUE-370 76% 100ML VIAL As Ordered ONE ×2 (06:44→08:25)
[2020-02-22 07:08] LABS: ALBUMIN 2.8 GM/DL (3.2-5.2); ALT/SGPT 29 U/L (12-78); BILIRUBIN,DIRECT 0.1 MG/DL (0.0-0.2); BILIRUBIN,TOTAL 0.8 MG/DL (0.2-1.0); CK-MB VALUE MASS < 1.0 NG/ML (<3.6); CPK CREATINE PHOSPHOKINASE 62 U/L (26-192); FERRITIN 30 NG/ML (8-252); LDH LACTATE DEHYDROGENASE 475 U/L (84-246); MB/CK RELATIVE INDEX 1.61 (< OR =4); NT-PRO BNP 163 PG/ML (<125); THYROXINE (T4) 12.1 UG/DL (4.5-12.0); TOTAL PROTEIN 6.5 GM/DL (6.4-8.2); TROPONIN I < 0.02 NG/ML (< 0.10)
[2020-02-22] MEDS ORDERED: METF-839 PO (07:45)
[2020-02-22] MEDS ORDERED: METO50TA7 PO (07:45)
[2020-02-22] MEDS ORDERED: GLIP5TAB8 PO (07:45)
--- NOTE | 2020-02-22 08:17 | REP ---
Clinical: Cough and dyspnea. Comparison: 02/02/2020. Findings: Mediastinum and cardiac silhouette are normal. Lung lee demonstrate chronic interstitial changes and bibasilar fibroatelectatic changes. No new focal consolidation, obvious effusion, or pneumothorax. Skeletal structures are intact. Impression: Chronic stable changes with bibasilar fibroatelectatic changes similar to prior examination. No focal consolidation or effusion identified. Electronically Signed by Marcus Dacosta MD 02/22/2020 08:09 A
[2020-02-22] MEDS ORDERED: ACETAMINOPHEN TAB 650MG DOSE (2X325MG) PO PRN (09:30)
[2020-02-22] MEDS ORDERED: ALBUTEROL SULFATE 2.5 MG/0.5 ML INH NEB SOLN NEB PRN (09:30)
[2020-02-22] MEDS ORDERED: GLUCOSE 4GM CHEW TABLET PO PRN (09:30)
[2020-02-22] MEDS ORDERED: MAALOX 30 ML SUSP *UDC PO PRN (09:30)
[2020-02-22] MEDS ORDERED: MOM 30ML SUSPENSION UDC PO PRN (09:30)
[2020-02-22] MEDS ORDERED: GLUCAGON INJ 1MG VIAL SC PRN (09:30)
[2020-02-22] MEDS ORDERED: DEXTROSE 50% 50 ML SYRINGE IV PRN (09:30)
--- NOTE | 2020-02-22 09:39 | HPEPDOC ---
General Date of Admission Date of Service: February 22, 2020 Chief Complaint The patient is a 60-year-old female admitted with a reason for visit of Difficulty Breathing. Source: Patient Exam Limitations: No limitations Timing/Duration: Other (3 days) Severity: Severe History of Present Illness This is 60 years old, obese, white female with past medical history of COPD, oxygen dependent on 3 L nasal cannula at home, diabetes mellitus, paroxysmal atrial fibrillation, hypothyroidism, hypertension, chronic neck pain, presented with worsening shortness of breath since last 3 days. According to patient, shortness of breath progressively got worse, but denies any cough, phlegm, fever, nausea, vomiting, diarrhea, etc. Patient follows up with [facility], her baseline O2 on room air is 83% and has his usual PCO2 is between 60 and 70. Patient was recently admitted and discharged on 02/02/2020 with diagnoses of atrial fibrillation. Acute on chronic respiratory failure. She had an echocardiogram done on the last visit which showed normal left ventricular size. Right ventricle does not appear enlarged. Mild elevated CVP and mild pulmonary hypertension, EF of 60%. Patient will be admitted this time with acute on chronic hypoxic and hypercarbic respiratory failure secondary to exacerbation of COPD Home Medications Scheduled Apixaban (Eliquis) 5 Mg Tablet, 5 MG PO BID, (Reported) Atorvastatin Calcium (Atorvastatin Calcium) 20 Mg Tab, 20 MG PO QHS, (Reported) Dexlansoprazole (Dexilant) 60 Mg Cap, 60 MG PO DAILY, (Reported) Duloxetine Hcl (Duloxetine HCl) 60 Mg Capsule.dr, 60 MG PO DAILY, (Reported) Furosemide (Furosemide) 40 Mg Tablet, 40 MG PO DAILY, (Reported) Gabapentin (Gabapentin) 600 Mg Tab, 600 MG PO TID, (Reported) Glipizide (Glipizide) 5 Mg Tablet, 5 MG PO DAILY, (Reported) Insulin Detemir (Levemir) 100 Unit/1 Ml Vial, 20 UNITS SC QHS, (Reported) Levothyroxine Sodium (Levothyroxine Sodium) 25 Mcg Tablet, 25 MCG PO DAILY, (Reported) Metformin HCl (Metformin HCl) 500 Mg Tablet, 1,000 MG PO BIDWM, (Reported) Metoprolol Tartrate (Metoprolol Tartrate) 50 Mg Tablet, 50 MG PO BID, (Reported) Olanzapine (Olanzapine) 5 Mg Tablet, 5 MG PO DAILY, (Reported) Oxycodone HCl (Oxycodone HCl) 5 Mg Tab, 5 MG PO BID, (Reported) Paroxetine HCl (Paroxetine HCl) 40 Mg Tab, 40 MG PO QHS, (Reported) Plecanatide (Trulance) 3 Mg Tablet, 3 MG PO QHS, (Reported) Salmeterol/Fluticasone (Advair 500-50 Diskus) 1 Each Blst.w.dev, 1 PUFF INH BID, (Reported) Umeclidinium [place] (Incruse Ellipta) 62.5 Mcg/Inh Inh, 1 PUFF INH DAILY, (Reported) TAKES AT NOON Scheduled PRN Albuterol Sulfate (Ventolin Hfa) 18 Gm Hfa.aer.ad, 2 PUFF INH Q4H PRN for SHORTNESS OF BREATH, (Reported) Allergies Coded Allergies: No Known Allergies (Verified Allergy, Unknown, 12/09/19) Past Medical History Medical History COPD, diabetes mellitus, proximal atrial fibrillation, hypothyroidism, hypertension, chronic neck pain, hyperlipidemia, chronic hypoxic and hypercarbic respiratory failure Surgical History Neck surgery Family History Family history reviewed. No history of diabetes or cancer Social History * Smoker: former Smoker Alcohol: Denies Drugs: denies A-FIB/CHADSVASC A-FIB History Current/History of A-Fib/PAF?: Yes Current PO Anticoag Therapy: Yes Review of Systems Constitutional: Denies: Chills, Fever, Malaise, Night Sweats, Weakness, Fatigue, Weight Loss, Lethargy, Other Eyes: Denies: Pain, Vision change, Conjunctivae inflammation, Eyelid inflammation, Redness, Other ENT: Denies: Head Aches, Ear Pain, Dysphagia, Sinus Congestion, Post Nasal Drip, Sore Throat, Epistaxis, Other Symptoms Skin: Denies: Rash, Lesions, Jaundice, Bruising, Itching, Dry, Breakdown, Nail Changes, Other Pulmonary: Reports: Dyspnea Cardiovascular: Denies: Chest Pain, Palpitations, Orthopnea, Paroxysmal Noc. Dyspnea, Edema, Lt Headedness, Other Symptoms Gastrointestinal: Denies: Nausea, Vomiting, Abdominal Pain, Diarrhea, Constipation, Melena, Hematochezia, Other Symptoms Genitourinary: Denies: Dysuria, Frequency, Incontinence, Hematuria, Retention, Other Symptoms Hematologic: Denies: Bruising, Bleeding Excessively, Petecchia, Purpura, Enlarged Lymph Nodes, Other Hematologic Endocrine: Denies: Polydipsia, Polyphagia, Polyuria, Heat Intolerance, Cold Intolerance, Other Endocrine Sx Musculoskeletal: Denies: Neck Pain, Back Pain, Shoulder Pain, Arm Pain, Hand Pain, Leg Pain, Foot Pain, Joint Pain, Muscle Pain, Spasms, Other Symptoms Neurological: Denies: Weakness, Numbness, Incoordination, Change in speech, Confusion, Seizures, Other Symptoms Psych: Denies: Mood Normal, Anxiety, Depression, Memory Issues, Thoughts of Self Harm, Anger, Thoughts of Harming Other, Other Psych Physical Examination General Exam: Positive: Alert, Cooperative Eye Exam: Positive: Conjunctiva & lids normal ENT Exam: Positive: Atraumatic, Mucous membr. moist/pink Neck Exam: Positive: Supple Chest Exam: Positive: Other (. Decreased breath sounds bilaterally with bilateral wheezing audible) Heart Exam: Positive: Rate Normal, Normal S1, Normal S2 Abdomen Exam: Positive: Normal bowel sounds Extremity Exam: Positive: Normal pulses Skin Exam: Positive: Nl turgor and temperature Neuro Exam: Positive: Strength at 5/5 X4 ext, Cranial Nerves 3-12 NL Psych Exam: Positive: Mood NL, Oriented x 3 Vital Signs Vital Signs Date Time Temp Pulse Resp B/P (MAP) Pulse Ox O2 Delivery O2 Flow Rate FiO2 02/22/20 08:21 85 Nasal Cannula 02/22/20 07:36 126/74 (91) 02/22/20 07:30 108 22 4.0 02/22/20 06:01 97.7 Laboratory Data Labs 24H Laboratory Tests 2 02/22/20 05:32: Bedside Glucose (Misc Panel) 209H 02/22/20 05:44: POC Glucose (Misc Panel) 207H, POC Sodium (Misc Panel) 136, POC Potassium (Misc Panel) 3.7, POC Chloride (Misc Panel) 87L, POC Total CO2 (Misc Panel) 40.0H, POC Blood Urea Nitrogen (Misc Panel 19, POC Ionized Calcium (Misc Panel) 4.1L, POC Creatinine (Misc Panel) 0.7, POC Hematocrit (Misc Panel) 35.0L 02/22/20 05:45: Lactic Acid Level 4.1*H 02/22/20 05:46: Immature Granulocyte % (Auto) 1.9, Neutrophils (%) (Auto) 71.7H, Lymphocytes (%) (Auto) 17.8L, Monocytes (%) (Auto) 7.1H, Eosinophils (%) (Auto) 1.1, Basophils (%) (Auto) 0.4, Neutrophils # (Auto) 7.1, Lymphocytes # (Auto) 1.8, Monocytes # (Auto) 0.7, Eosinophils # (Auto) 0.1, Basophils # (Auto) 0.0, Nucleated Red Blood Cells % (auto) 0.3H, Blood Gas Bicarbonate Standard 37.3, Venous Blood pH 7.431H, Venous Blood Partial Pressure CO2 61.7H, Venous Blood Partial Pressure O2 177.9H, Venous Blood Total Carbon Dioxide 42.0H, Venous Blood HCO3 40.1H, Venous Blood Oxygen Saturation 99.4H, Venous Blood Base Excess 13.4H, Ferritin 30, Total Bilirubin 0.8, Direct Bilirubin 0.1, Aspartate Amino Transf (AST/SGOT) 29, Alanine Aminotransferase (ALT/SGPT) 29, Alkaline Phosphatase 99, Lactate Dehydrogenase 475H, Total Creatine Kinase 62, Creatine Kinase MB < 1.0, Creatine Kinase MB Relative Index 1.61, Troponin I < 0.02, RK-Kwh-C-Type Natriuretic Peptide 163H, Total Protein 6.5, Albumin 2.8L, Albumin/Globulin Ratio 0.76L, Thyroid Stimulating Hormone (TSH) 1.750, Thyroxine (T4) 12.1H 02/22/20 07:01: Coronavirus (COVID-19)(PCR) NEGATIVE CBC/BMP Laboratory Tests 02/22/20 05:46 Microbiology Microbiology 02/22/20 Respiratory Virus Panel (PCR) ([facility]UNA) - Final, Complete 02/22/20 Blood Culture, Received Pending Problems (1) Acute and chronic respiratory failure ([id number]) Status: Acute Problem Text: Acute on chronic hypoxic and hypercarbic respiratory failure secondary to exacerbation of COPD Patient also has a mild pulmonary hypertension as well as mild elevated central venous pressure Patient's CBC, CMP essentially within normal limit , COVID negative and chest x- ray shows chronic stable changes On clinical exam. Patient has a decreased breath sounds with bilateral wheezing which is minimal. On auscultation Admit patient to PCU with telemetry Continue pulse ox Telemetry monitoring Saline lock Start Solu-Medrol 80 mg IV every 8 hour DuoNeb every 4 hours and Proventil neb every 2 hours when necessary Loading dose of magnesium sulfate 1 g IV 1 Continue all patient's home meds Continue O2 support to keep pulse ox between 88 and 92 Patient the CTA chest was ordered from ED is still pending DVT prophylaxis: Patient is already on anticoagulation for A. fib with NOVAC Diet is consistent carbohydrate diet Activity is ambulation with support. Otherwise, also fall risk secondary to deconditioning (2) Atrial fibrillation Status: Acute Problem Text: Ventricular rate is under control Continue home beta blockers and anticoagulation tele monitoring (3) Type 2 diabetes mellitus Status: Chronic Problem Text: Fingerstick blood sugar every before meals and at bedtime with coverage In all home meds (4) Depression Status: Chronic Problem Text: Continue home meds (5) Chronic pain syndrome Status: Chronic Problem Text: Continue home meds (6) Hypothyroidism Status: Chronic Problem Text: Continue home meds (7) Physical deconditioning Status: Chronic Problem Text: Will request PT and OT evaluation (8) COPD with acute exacerbation Status: Acute Problem Text: Please refer to acute on chronic respiratory failure section Plan / VTE VTE Prophylaxis Ordered?: Yes STEW COWAN MD February 22, 2020 09:38
[2020-02-22] MEDS: APIXABAN 5 MG TAB (ELIQUIS) PO SCH ×2 (09:50→20:07)
[2020-02-22] MEDS: FUROSEMIDE 40 MG TAB PO SCH (09:50)
--- NOTE | 2020-02-22 10:25 | REP ---
Clinical: Acute right sided pleuritic chest pain and shortness of breath . Technique: Axial contrast enhanced images from the thoracic inlet to the upper abdomen using 75 ml Isovue 370 intravenous contrast material with multiplanar re-formations. Comparison: 02/02/2020 Findings: Satisfactory enhancement of the pulmonary vasculature is achieved and no filling defects are identified to suggest pulmonary embolus. Further evaluation of the mediastinum demonstrates normal thoracic aorta, heart and pericardium. The bilateral lung lee demonstrate advanced COPD/emphysematous changes without focal consolidation, effusion, or pneumothorax. Tracheobronchial tree is patent. No obvious nodule or mass lesion is identified. No adenopathy noted. Surrounding musculoskeletal structures intact Impression: No evidence for pulmonary embolus. No acute mediastinal or pleural parenchymal process. Advanced COPD/emphysematous changes with scattered scarring. Electronically Signed by Marcus Dacosta MD 02/22/2020 10:15 A
[2020-02-22 10:31] LABS: BASO % 0.4 % (0.0-1.0); EOS % 0.4 % (0.0-3.0); HEMATOCRIT 33.3 % (36.0-47.0); LYMPH # 1.7 10^3/uL (1.5-5.0); LYMPH % 18.9 % (24.0-44.0); MEAN CORPUSCULAR HEMOGLOBIN 28.9 pg (27.0-33.0); MEAN CORPUSCULAR VOLUME 96.2 fl (80.0-96.0); MONO # 0.6 10^3/uL (0.0-0.8); MONO % 6.5 % (0.0-5.0); NEUTROPHILS # 6.4 10^3/uL (1.5-8.5); NEUTROPHILS % 71.6 % (36.0-66.0); PLATELET COUNT, AUTOMATED 259 10^3/uL (150-450); RED BLOOD COUNT 3.46 10^6/uL (4.00-5.40)
[2020-02-22] MEDS ORDERED: MAG SULF 1GM/100ML (MAG RUN) 1 GM in IV 1 EA IV ONE (11:00)
[2020-02-22] MEDS ORDERED: SLF 3 ML SYR IV PRN (11:15)
[2020-02-22] MEDS: IPRATROPIUM 0.5MG/ALBUTEROL 2.5MG INH SOL UD 3ML (DUONEB)(J7620) NEB SCH ×4 (11:25→23:39)
[2020-02-22] MEDS: DULoxetine 30 MG CAP (CYMBALTA) PO SCH (11:53)
[2020-02-22] MEDS: OLANZapine 5 MG TAB PO SCH (11:53)
[2020-02-22] MEDS: HumaLOG INSULIN (NovoLOG) PER UNIT SC SCH ×3 (11:56→20:05)
[2020-02-22] MEDS: SLF 3 ML SYR IV SCH ×2 (11:56→20:08)
[2020-02-22] MEDS: methylPREDNISolone INJ 125 MG/2 ML VIAL (J2930) IV SCH ×2 (11:56→17:25)
[2020-02-22] MEDS: GABAPENTIN 300 MG CAP PO SCH ×2 (16:40→20:07)
[2020-02-22] MEDS: ADVAIR HFA 230/21MCG INHALER INH SCH (19:33)
[2020-02-22] MEDS: LEVEMIR (INSULIN DETEMIR) 1 UNITS/0.01ML SC SCH (20:05)
[2020-02-22] MEDS: oxyCODONE 5MG TAB PO SCH (20:06)
[2020-02-22] MEDS: METOPROLOL TART 50 MG TAB PO SCH (20:07)
[2020-02-22] MEDS: ATORVASTATIN 20 MG TAB PO SCH (20:07)
[2020-02-22] MEDS: DOCUSATE SODIUM 100 MG CAP PO SCH (20:07)
[2020-02-22] MEDS: PARoxetine 20 MG TAB PO SCH (20:07)
[2020-02-23] VITALS (14 sets, daily range): BP systolic 115–151; BP diastolic 53–85; O2SAT 88–94
[2020-02-23] MEDS: methylPREDNISolone INJ 125 MG/2 ML VIAL (J2930) IV SCH ×4 (00:37→17:05)
[2020-02-23] MEDS: IPRATROPIUM 0.5MG/ALBUTEROL 2.5MG INH SOL UD 3ML (DUONEB)(J7620) NEB SCH ×6 (03:35→23:48)
[2020-02-23 03:57] LABS: HEMATOCRIT 31.3 % (36.0-47.0); HEMOGLOBIN 9.7 g/dl (12.0-15.5); MEAN CORPUSCULAR VOLUME 93.7 fl (80.0-96.0); PLATELET COUNT, AUTOMATED 240 10^3/uL (150-450); RED BLOOD COUNT 3.34 10^6/uL (4.00-5.40); WHITE BLOOD COUNT 7.3 10^3/uL (4.0-10.0)
[2020-02-23 04:22] LABS: ALBUMIN 2.7 GM/DL (3.2-5.2); ALT/SGPT 23 U/L (12-78); BILIRUBIN,TOTAL 0.4 MG/DL (0.2-1.0); BLOOD UREA NITROGEN 15 MG/DL (7-18); CALCIUM LEVEL 8.4 MG/DL (8.5-10.1); CARBON DIOXIDE LEVEL 43 MEQ/L (21-32); CHLORIDE LEVEL 92 MEQ/L (98-107); CREATININE FOR GFR 0.69 MG/DL (0.55-1.30); GLOMERULAR FILTRATION RATE > 60.0 (>51); GLUCOSE, FASTING 281 MG/DL (70-100); POTASSIUM SERUM 3.5 MEQ/L (3.5-5.1); SODIUM LEVEL 138 MEQ/L (136-145); TOTAL PROTEIN 6.1 GM/DL (6.4-8.2)
[2020-02-23] MEDS: LEVOTHYROXINE 25MCG TABLET (0.025MG) PO SCH (05:42)
[2020-02-23] MEDS: SLF 3 ML SYR IV SCH ×3 (05:43→21:41)
[2020-02-23] MEDS: ADVAIR HFA 230/21MCG INHALER INH SCH ×2 (07:21→20:07)
[2020-02-23] MEDS: DULoxetine 30 MG CAP (CYMBALTA) PO SCH (08:15)
[2020-02-23] MEDS: oxyCODONE 5MG TAB PO SCH ×2 (08:15→21:39)
[2020-02-23] MEDS: OLANZapine 5 MG TAB PO SCH (08:15)
[2020-02-23] MEDS: FUROSEMIDE 40 MG TAB PO SCH (08:15)
[2020-02-23] MEDS: APIXABAN 5 MG TAB (ELIQUIS) PO SCH ×2 (08:15→21:39)
[2020-02-23] MEDS: METOPROLOL TART 50 MG TAB PO SCH ×2 (08:16→21:40)
[2020-02-23] MEDS: GABAPENTIN 300 MG CAP PO SCH ×3 (08:16→21:39)
[2020-02-23] MEDS: glipiZIDE (GLUCOTROL) 5 MG TAB PO SCH (08:16)
[2020-02-23] MEDS: DOCUSATE SODIUM 100 MG CAP PO SCH ×2 (08:17→21:00)
[2020-02-23] MEDS: HumaLOG INSULIN (NovoLOG) PER UNIT SC SCH ×4 (08:17→21:39)
--- NOTE | 2020-02-23 11:12 | IPNPDOC ---
Subjective Date Seen The patient was seen on 02/23/20. Subjective Chief Complaint/HPI Patient feels a lot better, in no apparent distress. Offers no new complaints General: Denies: ROS Unobtainable, Chills, Night Sweats, Fatigue, Malaise, Normal Appetite, Other Symptoms Constitutional: Denies: Chills, Fever, Malaise, Night Sweats, Weakness, Fatigue, Weight Loss, Lethargy, Other Pulmonary: Reports: Dyspnea Cardiovascular: Denies: Chest Pain, Palpitations, Orthopnea, Paroxysmal Noc. Dyspnea, Edema, Lt Headedness, Other Symptoms Gastrointestinal: Denies: Nausea, Vomiting, Abdominal Pain, Diarrhea, Constipation, Melena, Hematochezia, Other Symptoms Neurological: Denies: Weakness, Numbness, Incoordination, Change in speech, Confusion, Seizures, Other Symptoms Objective Physical Examination ENT Exam: Positive: Atraumatic, Mucous membr. moist/pink Neck Exam: Positive: Supple Chest Exam: Positive: Other (bilateral expiratory wheezing audible. Improved air exchange bilaterally) Heart Exam: Positive: Rate Normal, Normal S1, Normal S2 Abdomen Exam: Positive: Normal bowel sounds Extremity Exam: Positive: Normal pulses Skin Exam: Positive: Nl turgor and temperature Neuro Exam: Positive: Strength at 5/5 X4 ext, Cranial Nerves 3-12 NL Psych Exam: Positive: Mood NL, Oriented x 3 Assessment /Plan Problems (1) Acute and chronic respiratory failure with hypercapnia Status: Acute Problem Text: Acute on chronic hypoxic and hypercarbic respiratory failure secondary to exacerbation of COPD Patient also has a mild pulmonary hypertension as well as mild elevated central venous pressure Patient is clinically improving very well. She has a decreased dyspnea but still has a bilateral wheezing Continue Solu-Medrol and nebulizer treatment as per orders The new oxygen supplementation Physical therapy evaluation Possible discharge in a.m. if clinically improving (2) COPD exacerbation Status: Acute Problem Text: Continue nebulizers, steroids and oxygen supplement A.m. labs (3) Physical deconditioning Status: Chronic Problem Text: PT eval called (4) Hypothyroidism Status: Chronic Problem Text: Continue home meds (5) Depression Status: Chronic Problem Text: Continue home meds (6) Atrial fibrillation Status: Acute Problem Text: Rate is under control. Continue home meds (7) Diastolic congestive heart failure Status: Chronic Problem Text: Well compensated. Continue home meds Plan/VTE VTE Prophylaxis Ordered?: Yes VS, I&O, 24H, Fishbone Vital Signs/I&O Vital Signs Date Time Temp Pulse Resp B/P (MAP) Pulse Ox O2 Delivery O2 Flow Rate FiO2 02/23/20 08:45 18 02/23/20 08:16 94 121/85 02/23/20 08:00 97.6 89 Nasal Cannula 3.0 I&O- Last 24 Hours up to 6 AM 02/23/20 06:00 Intake Total 420 ml Output Total 600 ml Balance -180 ml Laboratory Data 24H LABS Laboratory Tests 2 02/22/20 11:38: Bedside Glucose (Misc Panel) 220H 02/22/20 16:31: Bedside Glucose (Misc Panel) 236H 02/22/20 19:58: Bedside Glucose (Misc Panel) 240H 02/23/20 03:30: Nucleated Red Blood Cells % (auto) 0.5H, Anion Gap 3L, Glomerular Filtration Rate > 60.0, Calcium Level 8.4L, Magnesium Level 2.0, Total Bilirubin 0.4, Aspartate Amino Transf (AST/SGOT) 11, Alanine Aminotransferase (ALT/SGPT) 23, Alkaline Phosphatase 88, Total Protein 6.1L, Albumin 2.7L, Albumin/Globulin Ratio 0.79L CBC/BMP Laboratory Tests 02/23/20 03:30 Microbiology Microbiology 02/22/20 Respiratory Virus Panel (PCR) (KARUNA) - Final, Complete 02/22/20 Blood Culture - Preliminary, Resulted No growth after 24 hours . All specim... STEW COWAN MD February 23, 2020 11:12
[2020-02-23] MEDS: LEVEMIR (INSULIN DETEMIR) 1 UNITS/0.01ML SC SCH (21:38)
[2020-02-23] MEDS: ATORVASTATIN 20 MG TAB PO SCH (21:39)
[2020-02-23] MEDS: PARoxetine 20 MG TAB PO SCH (21:40)
[2020-02-24] VITALS: BP 142/80
[2020-02-24] MEDS: methylPREDNISolone INJ 125 MG/2 ML VIAL (J2930) IV SCH ×3 (00:11→12:43)
[2020-02-24 04:00] VITALS: BP 144/86
[2020-02-24] MEDS: IPRATROPIUM 0.5MG/ALBUTEROL 2.5MG INH SOL UD 3ML (DUONEB)(J7620) NEB SCH ×3 (04:00→11:57)
[2020-02-24 04:56] LABS: BASO % 0.2 % (0.0-1.0); HEMATOCRIT 30.2 % (36.0-47.0); HEMOGLOBIN 9.2 g/dl (12.0-15.5); LYMPH % 6.6 % (24.0-44.0); MEAN CORPUSCULAR HEMOGLOBIN 28.3 pg (27.0-33.0); MEAN CORPUSCULAR HGB CONC 30.5 g/dl (32.0-36.5); MEAN CORPUSCULAR VOLUME 92.9 fl (80.0-96.0); MONO # 0.6 10^3/uL (0.0-0.8); MONO % 3.7 % (0.0-5.0); NEUTROPHILS # 12.8 10^3/uL (1.5-8.5); NEUTROPHILS % 87.3 % (36.0-66.0); PLATELET COUNT, AUTOMATED 245 10^3/uL (150-450); RED BLOOD COUNT 3.25 10^6/uL (4.00-5.40); WHITE BLOOD COUNT 14.7 10^3/uL (4.0-10.0)
[2020-02-24 05:18] LABS: ALBUMIN 2.7 GM/DL (3.2-5.2); ALT/SGPT 23 U/L (12-78); BILIRUBIN,TOTAL 0.2 MG/DL (0.2-1.0); BLOOD UREA NITROGEN 21 MG/DL (7-18); CALCIUM LEVEL 8.3 MG/DL (8.5-10.1); CARBON DIOXIDE LEVEL 41 MEQ/L (21-32); CHLORIDE LEVEL 93 MEQ/L (98-107); CREATININE FOR GFR 0.91 MG/DL (0.55-1.30); GLOMERULAR FILTRATION RATE > 60.0 (>51); GLUCOSE, FASTING 305 MG/DL (70-100); MAGNESIUM LEVEL 2.1 MG/DL (1.8-2.4); POTASSIUM SERUM 3.6 MEQ/L (3.5-5.1); SODIUM LEVEL 139 MEQ/L (136-145); TOTAL PROTEIN 5.9 GM/DL (6.4-8.2)
[2020-02-24] MEDS: LEVOTHYROXINE 25MCG TABLET (0.025MG) PO SCH (05:59)
[2020-02-24] MEDS: SLF 3 ML SYR IV SCH (06:00)
[2020-02-24] MEDS: ADVAIR HFA 230/21MCG INHALER INH SCH (07:28)
[2020-02-24 08:00] VITALS: BP 159/79
[2020-02-24] MEDS: OLANZapine 5 MG TAB PO SCH (08:00)
[2020-02-24] MEDS: METOPROLOL TART 50 MG TAB PO SCH (08:00)
[2020-02-24] MEDS: FUROSEMIDE 40 MG TAB PO SCH (08:00)
[2020-02-24] MEDS: DOCUSATE SODIUM 100 MG CAP PO SCH (08:00)
[2020-02-24] MEDS: DULoxetine 30 MG CAP (CYMBALTA) PO SCH (08:00)
[2020-02-24] MEDS: GABAPENTIN 300 MG CAP PO SCH (08:00)
[2020-02-24] MEDS: APIXABAN 5 MG TAB (ELIQUIS) PO SCH (08:01)
[2020-02-24] MEDS: oxyCODONE 5MG TAB PO SCH (08:01)
[2020-02-24] MEDS: HumaLOG INSULIN (NovoLOG) PER UNIT SC SCH ×2 (08:01→12:44)
[2020-02-24] MEDS: glipiZIDE (GLUCOTROL) 5 MG TAB PO SCH (08:01)
[2020-02-24] MEDS ORDERED: PRED10TA2 PO (10:09)
--- NOTE | 2020-02-24 13:10 | DS.PDOC ---
Discharge Summary General Date of Admission February 22, 2020 at 09:19 Date of Discharge 02/24/20 Discharge Summary PROCEDURES PERFORMED DURING STAY: None. ADMITTING DIAGNOSES: 1. Acute on chronic hypoxic and hypercapnic respiratory failure. DISCHARGE DIAGNOSES: 1. Acute on chronic hypoxic and hypercapnic respiratory failure, diabetes mellitus, proximal atrial fibrillation, hypothyroidism, COPD, chronic neck pain, hypothyroidism. COMPLICATIONS/CHIEF COMPLAINT: Acute And Chronic Respiratory Failure. HISTORY OF PRESENT ILLNESS: This is 60 years old, obese, white female with past medical history of COPD, oxygen dependent on 3 L nasal cannula at home, diabetes mellitus, paroxysmal atrial fibrillation, hypothyroidism, hypertension, chronic neck pain, presented with worsening shortness of breath since last 3 days. According to patient, shortness of breath progressively got worse, but denies any cough, phlegm, fever, nausea, vomiting, diarrhea, etc. Patient follows up with [facility], her baseline O2 on room air is 83% and has his usual PCO2 is between 60 and 70. Patient was recently admitted and discharged on 02/02/2020 with diagnoses of atrial fibrillation. Acute on chronic respiratory failure. She had an echocardiogram done on the last visit which showed normal left ventricular size. Right ventricle does not appear enlarged. Mild elevated CVP and mild pulmonary hypertension, EF of 60%. Patient will be admitted this time with acute on chronic hypoxic and hypercarbic respiratory failure secondary to exacerbation of COPD. HOSPITAL COURSE: Acute on chronic hypoxic and hypercarbic respiratory failure secondary to exacerbation of COPD Patient also has a mild pulmonary hypertension as well as mild elevated central venous pressure Patient's CBC, CMP essentially within normal limit , COVID negative and chest x- ray shows chronic stable changes Patient was started on Solu-Medrol 80 mg IV every 8 hours and nebulizer DuoNeb every 4 hours and Proventil every 2 hours And also was loaded with the magnesium sulfate 1 g IV 1 and home meds were co ntinued And also received oxygen supplementation to keep her pulse ox between 88 and 90% CT chest did not show any evidence of PE After 2 days of treatment. Patient showed improvement in her respiratory status now. She does not any wheezing, only decreased breath sounds, which is her baseline. She has a oxygen 3 L of nasal cannula at home and also her all nebulizers as well as all her home meds Patient wishes to go home today. She will be discharged home and she is clini fab stable. She will continue all her home medication and will prescribe her tapering dose of prednisone. Patient has been advised to follow with the PCP and pulmonary as soon as possible within one week . DISCHARGE MEDICATIONS: Please see below. ALLERGIES: Please see below. PHYSICAL EXAMINATION ON DISCHARGE: VITAL SIGNS: Please see below. GENERAL: Within normal limits HEENT: Yue extraocular muscles intact NECK: Neck supple CARDIOVASCULAR EXAMINATION: S1, S2, regular RESPIRATORY EXAMINATION: Decreased breath sounds bilaterally ABDOMINAL EXAMINATION: , Soft, nontender, bowel sounds present EXTREMITIES: No clubbing, cyanosis, edema SKIN: Normal NEUROLOGICAL EXAMINATION: . No focal motor sensory deficit PSYCHIATRIC EXAMINATION: Normal LABORATORY DATA: Please see below. IMAGING: . CTA chest:Impression: No evidence for pulmonary embolus. No acute mediastinal or pleural parenchymal process. Advanced COPD/emphysematous changes with scattered scarring. PROGNOSIS: Failure ACTIVITY: As tolerated. DIET: As tolerated DISCHARGE PLAN: Discharge home DISPOSITION: . Home DISCHARGE INSTRUCTIONS: 1. As per discharge instructions. ITEMS TO FOLLOWUP ON ON OUTPATIENT: 1. With pulmonology PCP in one week. DISCHARGE CONDITION: Stable. TIME SPENT ON DISCHARGE: 38 minutes. Vital Signs/I&Os Vital Signs Date Time Temp Pulse Resp B/P (MAP) Pulse Ox O2 Delivery O2 Flow Rate FiO2 02/24/20 08:31 20 Nasal Cannula 3.0 02/24/20 08:00 97.2 113 159/79 (105) 90 I&O- Last 24 Hours up to 6 AM 02/24/20 06:00 Intake Total 1985 ml Output Total 1500 ml Balance 485 ml Laboratory Data Labs 24H Laboratory Tests 2 02/23/20 16:24: Bedside Glucose (Misc Panel) 371H 02/23/20 19:41: Bedside Glucose (Misc Panel) 359H 02/24/20 04:28: Immature Granulocyte % (Auto) 2.2, Neutrophils (%) (Auto) 87.3H, Lymphocytes (%) (Auto) 6.6L, Monocytes (%) (Auto) 3.7, Eosinophils (%) (Auto) 0.0, Basophils (%) (Auto) 0.2, Neutrophils # (Auto) 12.8H, Lymphocytes # (Auto) 1.0L, Monocytes # (Auto) 0.6, Eosinophils # (Auto) 0.0, Basophils # (Auto) 0.0, Nucleated Red Blood Cells % (auto) 0.6H, Anion Gap 5L, Glomerular Filtration Rate > 60.0, Calcium Level 8.3L, Magnesium Level 2.1, Total Bilirubin 0.2, Aspartate Amino Transf (AST/SGOT) 12, Alanine Aminotransferase (ALT/SGPT) 23, Alkaline Phosphatase 85, Total Protein 5.9L, Albumin 2.7L, Albumin/Globulin Ratio 0.84L 02/24/20 11:56: Bedside Glucose (Misc Panel) 280H CBC/BMP Laboratory Tests 02/24/20 04:28 FSBS Laboratory Tests Test 02/23/20 16:24 02/23/20 19:41 02/24/20 11:56 Range/Units Bedside Glucose (Misc Panel) 371 359 280 70-105 MG/DL Microbiology Microbiology 02/22/20 Respiratory Virus Panel (PCR) (KARUNA) - Final, Complete 02/22/20 Blood Culture - Preliminary, Resulted No Growth after 48 hours. All Specime... Discharge Medications Scheduled Apixaban (Eliquis) 5 Mg Tablet, 5 MG PO BID, (Reported) Atorvastatin Calcium (Atorvastatin Calcium) 20 Mg Tab, 20 MG PO QHS, (Reported) Dexlansoprazole (Dexilant) 60 Mg Cap, 60 MG PO DAILY, (Reported) Duloxetine Hcl (Duloxetine HCl) 60 Mg Capsule.dr, 60 MG PO DAILY, (Reported) Furosemide (Furosemide) 40 Mg Tablet, 40 MG PO DAILY, (Reported) Gabapentin (Gabapentin) 600 Mg Tab, 600 MG PO TID, (Reported) Glipizide (Glipizide) 5 Mg Tablet, 5 MG PO DAILY, (Reported) Insulin Detemir (Levemir) 100 Unit/1 Ml Vial, 20 UNITS SC QHS, (Reported) Levothyroxine Sodium (Levothyroxine Sodium) 25 Mcg Tablet, 25 MCG PO DAILY, (Reported) Metformin HCl (Metformin HCl) 500 Mg Tablet, 1,000 MG PO BIDWM, (Reported) Metoprolol Tartrate (Metoprolol Tartrate) 50 Mg Tablet, 50 MG PO BID, (Reported) Olanzapine (Olanzapine) 5 Mg Tablet, 5 MG PO DAILY, (Reported) Oxycodone HCl (Oxycodone HCl) 5 Mg Tab, 5 MG PO BID, (Reported) Paroxetine HCl (Paroxetine HCl) 40 Mg Tab, 40 MG PO QHS, (Reported) Plecanatide (Trulance) 3 Mg Tablet, 3 MG PO QHS, (Reported) Prednisone (Prednisone) 10 Mg Tablet, 10 MG PO TAPER Take 4 tabs daily x 3 days, then 3 tabs daily x 3 days, then 2 tabs daily x 3 days, then 1 tab daily x 3 days and stop Salmeterol/Fluticasone (Advair 500-50 Diskus) 1 Each Blst.w.dev, 1 PUFF INH BID, (Reported) Umeclidinium [place] (Incruse Ellipta) 62.5 Mcg/Inh Inh, 1 PUFF INH DAILY, (Reported) TAKES AT NOON Scheduled PRN Albuterol Sulfate (Ventolin Hfa) 18 Gm Hfa.aer.ad, 2 PUFF INH Q4H PRN for SHORTNESS OF BREATH, (Reported) Allergies Coded Allergies: No Known Allergies (Verified Allergy, Unknown, 12/09/19) STEW COWAN MD February 24, 2020 13:10
[2020-02-24] MEDS ORDERED: metFORMIN (GLUCOPHAGE) 500 MG TAB PO SCH (18:00)
== END 2020-02-24 14:18 | disposition home health service (06) | DRG 189 ==
LOC: M ED 05:21 → EDBD 05:21 → M ED INP 09:19 → ENRESERV 09:58 → M PCU 10:48
PROVIDERS: ADMIT Internal Medicine; ATTEND Internal Medicine
DX: J96.21 Acute and chronic respiratory failure with hypoxia (principal); J44.1 Chronic obstructive pulmonary disease with (acute) exacerbation; I50.32 Chronic diastolic (congestive) heart failure; J96.22 Acute and chronic respiratory failure with hypercapnia; E11.9 Type 2 diabetes mellitus without complications; I48.0 Paroxysmal atrial fibrillation; M54.2 Cervicalgia; E03.9 Hypothyroidism, unspecified; Z99.81 Dependence on supplemental oxygen; Z79.899 Other long term (current) drug therapy; Z79.4 Long term (current) use of insulin; F32.9 Major depressive disorder, single episode, unspecified

== ENCOUNTER 2020-03-10 17:26 | Inpatient (IN) | payer MEDICARE, MEDICAID ==
[~2020-03-10] VITALS: Ht 167.6 cm; Wt 95.3 kg
[~2020-03-10 17:26] MED LIST changes: +METF-839 PO; +METH-1164 PO; -METH1TAB40 PO; +METO50TA7 PO; +PLEC3TAB PO; -TRUL3TAB PO
[2020-03-10] MEDS ORDERED: ALBUTEROL SULFATE 2.5 MG/0.5 ML INH NEB SOLN As Ordered ONE (18:01)
[2020-03-10] MEDS ORDERED: IPRATROPIUM 0.5MG/ALBUTEROL 2.5MG INH SOL UD 3ML (DUONEB) As Ordered ONE (18:01)
[2020-03-10 18:02] LABS: BASO % 0.3 % (0.0-1.0); EOS # 0.1 10^3/uL (0.0-0.5); EOS % 0.5 % (0.0-3.0); HEMATOCRIT 34.6 % (36.0-47.0); HEMOGLOBIN 10.2 g/dl (12.0-15.5); LYMPH # 1.7 10^3/uL (1.5-5.0); LYMPH % 17.6 % (24.0-44.0); MEAN CORPUSCULAR HEMOGLOBIN 27.8 pg (27.0-33.0); MEAN CORPUSCULAR HGB CONC 29.5 g/dl (32.0-36.5); MEAN CORPUSCULAR VOLUME 94.3 fl (80.0-96.0); MONO # 0.7 10^3/uL (0.0-0.8); MONO % 6.9 % (0.0-5.0); NEUTROPHILS % 73.2 % (36.0-66.0); PLATELET COUNT, AUTOMATED 326 10^3/uL (150-450); RED BLOOD COUNT 3.67 10^6/uL (4.00-5.40); WHITE BLOOD COUNT 9.5 10^3/uL (4.0-10.0)
[2020-03-10] MEDS ORDERED: IPRATROPIUM 0.5MG/ALBUTEROL 2.5MG INH SOL UD 3ML (DUONEB) NEB ONE (18:15)
[2020-03-10] MEDS ORDERED: ALBUTEROL SULFATE 2.5 MG/0.5 ML INH NEB SOLN INH ONE (18:15)
[2020-03-10 18:23] LABS: INR 1.18; PROTHROMBIN TIME 14.7 SECONDS (11.8-14.0)
[2020-03-10 18:35] LABS: ALT/SGPT 30 U/L (12-78); BILIRUBIN,DIRECT 0.2 MG/DL (0.0-0.2); BILIRUBIN,TOTAL 0.4 MG/DL (0.2-1.0); BLOOD UREA NITROGEN 18 MG/DL (7-18); CALCIUM LEVEL 8.3 MG/DL (8.5-10.1); CARBON DIOXIDE LEVEL 44 MEQ/L (21-32); CHLORIDE LEVEL 93 MEQ/L (98-107); CK-MB VALUE MASS < 1.0 NG/ML (<3.6); CPK CREATINE PHOSPHOKINASE 19 U/L (26-192); CREATININE FOR GFR 0.59 MG/DL (0.55-1.30); GLOMERULAR FILTRATION RATE > 60.0 (>51); GLUCOSE, FASTING 132 MG/DL (70-100); MB/CK RELATIVE INDEX 5.26 (< OR =4); NT-PRO BNP 322 PG/ML (<125); POTASSIUM SERUM 4.1 MEQ/L (3.5-5.1); SODIUM LEVEL 139 MEQ/L (136-145); TOTAL PROTEIN 6.4 GM/DL (6.4-8.2); TROPONIN I < 0.02 NG/ML (< 0.10)
[2020-03-10] MEDS ORDERED: ALBU83IN INH (20:09)
[2020-03-10] MEDS ORDERED: methylPREDNISolone 125MG 2ML VIAL IV STA (21:39)
[2020-03-10] MEDS ORDERED: MOM 30ML SUSPENSION UDC PO PRN (21:45)
[2020-03-10] MEDS ORDERED: MAALOX 30 ML SUSP *UDC PO PRN (21:45)
[2020-03-10] MEDS ORDERED: ALBUTEROL SULFATE 2.5 MG/0.5 ML INH NEB SOLN INH PRN (21:45)
[2020-03-10] MEDS ORDERED: ACETAMINOPHEN TAB 650MG DOSE (2X325MG) PO PRN (21:45)
--- NOTE | 2020-03-10 21:59 | HPEPDOC ---
[facility] Medical History & Physical Date of Admission March 10, 2020 Date of Service: March 10, 2020 Primary Care Physician: DELANEY JEAN PA-C Attending Physician: Trudy Wagner MD History and Physical CHIEF COMPLAINT: lightheadedness HISTORY OF PRESENT ILLNESS: Lilibeth George is a 60-year-old female who presented to the emergency room after an episode of lightheadedness today. She states she was cleaning in her home when the lightheadedness started. She also reports a productive cough over the past few days, but cannot give a more descriptive time course. She states she is bringing up mucus but cannot describe the color. She denies noticing any blood in her sputum. She was recently admitted for a COPD exacerbation and discharged on 02/24/20. She did not require BiPAP during her last admission, although she has required in the past due to acute on chronic hypercarbic respiratory failure. She was discharged from her last admission with a prednisone taper, which she reports completing. She denies currently feeling any worsening of her shortness of breath. She denies fevers, chills, night sweats. She has not had any recent sick contacts or travel. PAST MEDICAL HISTORY: 1. COPD with chronic hypoxemic respiratory failure and chronic hypercarbic respiratory failure on 3 lpm of nasal cannula oxygen. 2. Chronic neck pain on chronic opioids. 3. Depression. 4. Hyperlipidemia. 5. Hypertension. 6. Gastroesophageal reflux disease. 7. Migraine headaches. 8. Essential tremor. 9. Hypothyroidism. PAST SURGICAL HISTORY: 1. Cervical spine fusion. 2. Left knee replacement. 3. Tubal ligation. SOCIAL HISTORY: Previous smoker, quit 2 years ago, smoked 1 pack per day for over 30 years. Social alcohol use. Denies illicit drug use. FAMILY HISTORY: Father with history of cirrhosis. Mother with history of colon cancer. ALLERGIES: Please see below. REVIEW OF SYSTEMS: CONSTITUTIONAL: Denies fevers, chills, night sweats, fatigue, unexpected change in weight. HEENT: Denies change in vision, change in hearing. CARDIOVASCULAR: Endorses lightheadedness. Denies chest pain, palpitations, shortness of breath. RESPIRATORY: Endorses productive cough. Denies dyspnea, wheezing, hemoptysis. GASTROINTESTINAL: Denies nausea, vomiting, abdominal pain, diarrhea, constipation, blood in stool. GENITOURINARY: Denies dysuria, urinary frequency, urinary urgency. SKIN: Denies rash, lesions. MUSCULOSKELETAL: Denies joint pain or muscle aches. NEUROLOGICAL: Denies headache, dizziness, weakness. PSYCHIATRIC: Denies change in mood. HOME MEDICATIONS: Please see below. PHYSICAL EXAMINATION: VITAL SIGNS: see below GENERAL: Somewhat somnolent, arouses to sound, comfortable, in no acute distress HEENT: Normocephalic, atraumatic, PERRLA, EOMI, sclera anicteric, moist mucous membranes NECK: Supple, trachea midline, no lymphadenopathy CARDIOVASCULAR: Regular rate and rhythm, normal S1 and S2. No murmurs, rubs, or gallops appreciated RESPIRATORY: Coarse rhonchi throughout the upper and lower lung lee with bibasilar crackles. ABDOMEN: Soft, nontender, nondistended, bowel sounds present, obese abdomen EXTREMITIES: 1+ pitting edema in bilateral lower extremities up to the knee SKIN: [place], warm, dry NEUROLOGIC: Somewhat somnolent, but remains oriented 3 to person, place and irma e. No focal deficits appreciated PSYCHIATRIC: Mood and affect appropriate LABORATORY DATA: See below. IMAGING: - CXR: Evidence of COPD. Plate-like atelectasis versus linear fibrosis left base unchanged. No new infiltrate. MICROBIOLOGY: Please see below. ASSESSMENT: 60-year-old female presenting with productive cough and lightheadedness admitted for acute on chronic hypercarbic and hypoxemic respiratory failure. PLAN: 1. Acute on chronic hypercarbic and hypoxemic respiratory failure Unclear cause, possible early pneumonia versus noncompliance/poor follow up, she has had multiple hospitalizations for this in the past few months Chest x-ray negative for acute pneumonia, respiratory panel pending, COVID-19 test negative. Started on IV Solu-Medrol, IV Levaquin, DuoNeb nebs every 6 hours. Continue home inhalers. Spiriva has been substituted for her Incruse Ellipta Admitted to ICU due to somnolence, if worsening will recheck ABG, consider BiPAP 2. Altered mental status, somnolence Monitor in ICU overnight in case she requires BiPAP. Check UA and culture, urine drug screen Nothing by mouth except meds overnight in case she needs BiPAP, can likely change to consistent carbohydrate diet in the morning if her mental status improves 3. Atrial fibrillation. Continue home metoprolol tartrate and Eliquis for anticoagulation 4. Type 2 diabetes mellitus. Sliding scale insulin while inpatient, consistent carbohydrate, hypoglycemic protocol - restart home basal insulin when she is no longer NPO Diastolic congestive heart failure. Last echocardiogram 02/04/20 BNP mildly elevated, bilateral lower extremity pitting edema. Continue home Lasix, metoprolol, atorvastatin Depression. continue home duloxetine and Paxil - hold home olanzapine due to somnolence 5. Hypothyroidism Continue home levothyroxine 6. Chronic pain. Continue home duloxetine and gabapentin - hold home oxycodone due to somnolence DVT prophylaxis: home Eliquis anticoagulation GI prophylaxis: IV Protonix while on steroids Disposition: admitted to ICU to monitor mental status, possible BiPAP, may be able to go to PCU if stable overnight Vital Signs Vital Signs Date Time Temp Pulse Resp B/P (MAP) Pulse Ox O2 Delivery O2 Flow Rate FiO2 03/10/20 21:30 104 170/87 (114) 98 03/10/20 20:15 Nasal Cannula 4.0 03/10/20 17:39 99.7 30 Laboratory Data Labs 24H Laboratory Tests 2 03/10/20 17:49: Immature Granulocyte % (Auto) 1.5, Neutrophils (%) (Auto) 73.2H, Lymphocytes (%) (Auto) 17.6L, Monocytes (%) (Auto) 6.9H, Eosinophils (%) (Auto) 0.5, Basophils (%) (Auto) 0.3, Neutrophils # (Auto) 7.0, Lymphocytes # (Auto) 1.7, Monocytes # (Auto) 0.7, Eosinophils # (Auto) 0.1, Basophils # (Auto) 0.0, Nucleated Red Blood Cells % (auto) 0.0, Prothrombin Time 14.7H, Prothromb Time International Ratio 1.18, Anion Gap 2L, Glomerular Filtration Rate > 60.0, Lactic Acid Level 1.3, Calcium Level 8.3L, Total Bilirubin 0.4, Direct Bilirubin 0.2, Aspartate Amino Transf (AST/SGOT) 12, Alanine Aminotransferase (ALT/SGPT) 30, Alkaline Phosphatase 85, Total Creatine Kinase 19L, Creatine Kinase MB < 1.0, Creatine Kinase MB Relative Index 5.26H, Troponin I < 0.02, LG-[id number]-Type Natriuretic Peptide 322H, Total Protein 6.4, Albumin 3.0L, Albumin/Globulin Ratio 0.9L, Thyroid Stimulating Hormone (TSH) 1.090 03/10/20 17:58: POC pH (Misc Panel) 7.431, POC Base Excess (Misc Panel) 26.0H, POC Saturated Percent O2 (Misc) 100H, POC pO2 (Misc Panel) 186.0H, POC pCO2 (Misc Panel) 75.7*H, POC HCO3 (Misc Panel) 50.4H, POC Total CO2 (Misc Panel) > 50.0H 03/10/20 19:14: Coronavirus (COVID-19)(PCR) NEGATIVE CBC/BMP Laboratory Tests 03/10/20 17:49 Microbiology Microbiology 03/10/20 Blood Culture, Received Pending Home Medications Scheduled Apixaban (Eliquis) 5 Mg Tablet, 5 MG PO BID Atorvastatin Calcium (Atorvastatin Calcium) 20 Mg Tab, 20 MG PO DAILY Dexlansoprazole (Dexilant) 60 Mg Cap, 60 MG PO DAILY Duloxetine Hcl (Duloxetine HCl) 60 Mg Capsule.dr, 60 MG PO DAILY Furosemide (Furosemide) 40 Mg Tablet, 40 MG PO DAILY Gabapentin (Gabapentin) 600 Mg Tab, 600 MG PO BID Glipizide (Glipizide) 5 Mg Tablet, 5 MG PO DAILY Insulin Detemir (Levemir) 100 Unit/1 Ml Vial, 20 UNITS SC DAILY Levothyroxine Sodium (Levothyroxine Sodium) 25 Mcg Tablet, 25 MCG PO DAILY Metformin HCl (Metformin HCl) 500 Mg Tablet, 1,000 MG PO BIDWM Metoprolol Tartrate (Metoprolol Tartrate) 50 Mg Tablet, 50 MG PO BID Olanzapine (Olanzapine) 5 Mg Tablet, 5 MG PO DAILY Paroxetine HCl (Paroxetine HCl) 40 Mg Tab, 40 MG PO DAILY Plecanatide (Trulance) 3 Mg Tablet, 3 MG PO DAILY Salmeterol/Fluticasone (Advair 500-50 Diskus) 1 Each Blst.w.dev, 1 PUFF INH BID Umeclidinium [place] (Incruse Ellipta) 62.5 Mcg/Inh Inh, 1 PUFF INH DAILY Scheduled PRN Albuterol Sulf (Albuterol Sulfate) 2.5 Mg/3 Ml Vial.neb, 2.5 MG INH Q4H PRN for SHORTNESS OF BREATH Albuterol Sulfate (Ventolin Hfa) 18 Gm Hfa.aer.ad, 2 PUFF INH Q4H PRN for SHORTNESS OF BREATH Oxycodone HCl (Oxycodone HCl) 5 Mg Tab, 5 MG PO TID PRN for PAIN Allergies Coded Allergies: No Known Allergies (Verified Allergy, Unknown, 12/09/19) GME ATTESTATION GME ATTESTATION My faculty preceptor for this patient encounter was physically present during the encounter and was fully available. All aspects of the patient interview, examination, medical decision making process, and medical care plan development were reviewed and approved by the faculty preceptor. The faculty preceptor is aware and concurs with the plan as stated in the body of this note and will at test to such by his/her cosignature. ATTENDING NOTE HISTORY OF PRESENT ILLNESS: 60 y/o F with PMH chronic hypercapnic respiratory failure on 3 L NC at home, COPD, diabetes mellitus, proximal atrial fibrillation, hypothyroidism, COPD, chronic neck pain, hypothyroidism who presented with worsening shortness of breath for the past several days, dizziness this AM with activity. Other associated symptoms include nonproductive cough, increased fatigue. She denied chest pain, n/v/d, recent illnesses, palpitations, sensation of the room spinning around her, falls. On exam, HR 103 sinus tachycardia, RR 20. She was increasingly somnolent on exam, needing to be woken up several times to obtain history. ABG showed pH 7.431, pCO2 75.7. She follows up with Dr. [facility]. Baseline O2 on room air is 83% and has a usual PCO2 is between 60-70 according to notes. She has needed BIPAP in past for pCO2 of 69, case discussed with Dr. Cunningham, pulmonology. Holding off on BIPAP, but suggested ICU admission due to somnolence. Patient admitted for acute on chronic respiratory failure likely 2/2 to COPD exacerbation. ROS: Negative except for what is mentioned above PMH, PSurgHx, Social and Family Hx as mentioned in resident note PHYSICAL EXAMINATION: CONSTITUTIONAL: No acute distress, increased somnolence but when awakened would answer questions appropriately, oriented x 3 EYES: PERRLA, EOM intact HENT, MOUTH: Normocephalic, atraumatic, moist mucous membranes, NECK: SUPPLE, no JVD, no lymphadenopathy, no carotid bruit CV: Tachycardic, Regular rhythm, S1S2 normal, no murmurs/rubs/gallops RESPIRATORY: Rhonchi bilaterally, crackles in posterior lung bases, no rales/ wheezes GI: Obese abdomen, BS positive in 4 quadrants, soft, nontender, nondistended, no rebound or guarding, no organomegaly : Deferred MUSCULOSKELETAL: Normal ROM. No cyanosis, clubbing, swelling, joint deformity, +1 pitting edema in bilateral lower ext INTEGUMENTARY: Redness on bilateral heel pads, under foot- chronic. Multiple scabs in the upper arms. NEUROLOGIC: Cranial Nerves II-XII are intact, no focal deficits IMAGING: CXR: Evidence of COPD. Platelike atelectasis versus linear fibrosis left base, unchanged. No new infiltrate. ASSESSMENT: 60 y/o F admitted for acute on chronic hypercapnic respiratory failure. PLAN: 1. Acute on chronic hypercapnic respiratory failure 2/2 to COPD exacerbation.4 L NC saturating at 96%, normally on 3 L NC. ABG as mentioned above. Methylprednisolone Q8 hrs, duonebs ATC, albuterol PRN, continuous pulse O2, lev ofloxacin. Pulmonary consulted. Holding off on BIPAP at this time but will watch in ICU due to increased somnolence. 2. Increased somnolence possibly 2/2 to CO2 narcosis vs exhaustion. Also ordering UDS to r/o alternative cause. Watching closely with tele, holding off on BIPAP per pulmonary. ABG PRN, c/w plan above. 3. Atrial fib. Rate controlled, c/w home meds. 4. DM type II. Holding diet due to problem #2, can start consistent carb diet when eating. C/w Q6hr blood sugar checks. 5. Depression. C/w home meds when more alert and awake. 6. Hypothyroidism. C/w home meds when more alert and awake 7. GI px. PPI 8. DVT px. Eliquis MARGIE SEQUEIRA D.O. March 10, 2020 21:59 Trudy Wagner MD March 11, 2020 00:26
[2020-03-10] MEDS ORDERED: GLUCOSE 4GM CHEW TABLET PO PRN (22:00)
[2020-03-10] MEDS ORDERED: DEXTROSE 50% 50 ML SYRINGE IV PRN (22:00)
[2020-03-10] MEDS ORDERED: GLUCAGON INJ 1MG VIAL SC PRN (22:00)
[2020-03-10] MEDS ORDERED: LevoFLOXacin IV 750 MG in IV 1 EA IV SCH (23:00)
--- NOTE | 2020-03-10 23:00 | REP ---
PORTABLE CHEST X-RAY, SINGLE VIEW: HISTORY: Dyspnea and cough. COMPARISON CHEST X-RAY: 02/22/2020 FINDINGS: Monitoring electrodes and oxygen delivery tubing are seen. There is platelike atelectasis again noted in the left base. Left hemidiaphragm is slightly elevated, unchanged. No pleural effusion is seen. Interstitial markings are prominent in both bases as before. No new infiltrate. Oligemic/emphysematous changes are noted in the upper lobes. IMPRESSION: Evidence of COPD. Platelike atelectasis versus linear fibrosis left base, unchanged. No new infiltrate. Electronically Signed by Byron Cunningham MD 03/11/2020 07:54 A
[2020-03-11 00:25] VITALS: BP 153/74
--- NOTE | 2020-03-11 00:38 | ECGEPIP ---
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
[2020-03-11] MEDS: HumaLOG INSULIN (NovoLOG) PER UNIT SC SCH ×2 (00:43→05:54)
[2020-03-11] MEDS: GABAPENTIN 300 MG CAP PO SCH ×2 (00:43→08:45)
[2020-03-11] MEDS: APIXABAN 5 MG TAB (ELIQUIS) PO SCH ×2 (00:44→08:46)
[2020-03-11] MEDS: METOPROLOL TART 50 MG TAB PO SCH ×2 (00:44→08:46)
[2020-03-11 01:00] VITALS: BP 111/55
[2020-03-11 02:00] VITALS: BP 103/69
[2020-03-11] MEDS: IPRATROPIUM 0.5MG/ALBUTEROL 2.5MG INH SOL UD 3ML (DUONEB) NEB SCH ×2 (02:33→08:00)
[2020-03-11 04:00] VITALS: BP 100/75
[2020-03-11 04:56] LABS: HEMATOCRIT 32.6 % (36.0-47.0); HEMOGLOBIN 9.8 g/dl (12.0-15.5); MEAN CORPUSCULAR HGB CONC 30.1 g/dl (32.0-36.5); MEAN CORPUSCULAR VOLUME 93.1 fl (80.0-96.0); PLATELET COUNT, AUTOMATED 293 10^3/uL (150-450); WHITE BLOOD COUNT 4.6 10^3/uL (4.0-10.0)
[2020-03-11 05:29] LABS: BLOOD UREA NITROGEN 16 MG/DL (7-18); CALCIUM LEVEL 8.3 MG/DL (8.5-10.1); CARBON DIOXIDE LEVEL 42 MEQ/L (21-32); CHLORIDE LEVEL 94 MEQ/L (98-107); CREATININE FOR GFR 0.46 MG/DL (0.55-1.30); GLOMERULAR FILTRATION RATE > 60.0 (>51); GLUCOSE, FASTING 181 MG/DL (70-100); MAGNESIUM LEVEL 1.7 MG/DL (1.8-2.4); POTASSIUM SERUM 3.8 MEQ/L (3.5-5.1); SODIUM LEVEL 139 MEQ/L (136-145)
[2020-03-11] MEDS ORDERED: methylPREDNISolone 125MG 2ML VIAL IV SCH (06:00)
[2020-03-11] MEDS ORDERED: LEVOTHYROXINE 25MCG TABLET (0.025MG) PO SCH (06:00)
[2020-03-11 06:03] LABS: ABG BASE EXCESS 18.6 (-2.0-2.0); ABG HCO3 46.2 MEQ/L (22.0-26.0); ABG O2 SATURATION 92.6 % (95.0-99.0); ABG PARTIAL PRESSURE O2 68.4 mmHg (75.0-100.0); ABG STANDARD HCO3 42.5 MEQ/L (22.0-26.0); ABG TOTAL CO2 48.4 MEQ/L (22.0-29.0); ABG pH (ARTERIAL) 7.421 UNITS (7.350-7.450)
[2020-03-11 06:05] LABS: ABG PARTIAL PRESSURE CO2 72.7 mmHg (35.0-45.0)
[2020-03-11 08:00] VITALS: BP 112/61
[2020-03-11] MEDS ORDERED: TIOTROPIUM INHALER/CAPSULE (SPIRIVA) INH SCH (08:00)
[2020-03-11 08:18] LABS: AMPHETAMINES LEVEL URINE NEGATIVE (NEGATIVE); BARBITURATES URINE NEGATIVE (NEGATIVE); BENZODIAZEPINES URINE NEGATIVE (NEGATIVE); CANNABINOIDS URINE NEGATIVE (NEGATIVE); COCAINE METABOLITE URINE NEGATIVE (NEGATIVE); METHADONE URINE NEGATIVE (NEGATIVE); OPIATES URINE POSITIVE (NEGATIVE); PHENCYCLIDINE URINE NEGATIVE (NEGATIVE)
[2020-03-11 08:46] VITALS: BP 112/61
[2020-03-11] MEDS ORDERED: ATORVASTATIN 20 MG TAB PO SCH (09:00)
[2020-03-11] MEDS ORDERED: DULoxetine 30 MG CAP (CYMBALTA) PO SCH (09:00)
[2020-03-11] MEDS ORDERED: ADVAIR HFA 230/21MCG INHALER INH SCH (09:00)
[2020-03-11] MEDS ORDERED: PARoxetine 20MG TABLET PO SCH (09:00)
[2020-03-11] MEDS ORDERED: FUROSEMIDE 40 MG TAB PO SCH (09:00)
[2020-03-11] MEDS ORDERED: PANTOPRAZOLE 40MG VIAL (C9113 PER 1) IV SCH (09:00)
[2020-03-11] MEDS ORDERED: PRED10PA2 PO (09:59)
--- NOTE | 2020-03-11 10:38 | CR ---
DATE OF CONSULTATION: 03/11/2020 ATTENDING PHYSICIAN: Jr Cunningham DO HISTORY OF PRESENT ILLNESS: This is a 60-year-old female with the pertinent past medical history of chronic obstructive pulmonary disease (COPD) on chronic steroids and 3 liters of oxygen at home who sees Dr. Montez outpatient, history of diastolic dysfunction, paroxysmal atrial fibrillation on apixaban, who is presenting to our emergency room (ER) for a bilateral lower extremity swelling. She states that this has been going on for the last 4 days. She has noticed some excoriation in her lower extremities that have been erythematous, and her swelling has gotten worse. She states they feel very tight and full, but she is able to ambulate with no problems. She denies any fevers, chills, or night sweats. She denies any open wounds in her lower extremities. She does endorse that she is on 3-4 liters on oxygen at home and does see Dr. Montez outpatient and believes the last appointment was last year prior to her recurrent admissions this year. She endorses she has been compliant with all her medications, and she has not had any problems with bleeding or shortness of breath. She does have chronic cough that has not changed from baseline. She is on Incruse and Advair outpatient, as well as steroid since her last discharge. Lastly, she does endorse that she called her primary care office yesterday citing of this complaint, and she was advised by the triage nurses to actually come to the ER for further evaluation. In the ER, her vital signs were stable. She was slightly tachycardic with a rate of 113 with a blood pressure of 135/69, mean arterial pressure (MAP) of 91, saturating at 98% on 4 liters of nasal cannula. She was afebrile. She did not have a leukocytosis. Her chemistries are within normal limits. She had a slight elevation or pro-BNP of 322. Her arterial blood gas (ABG) this morning did show her pH was within normal limits with a slightly elevated PCO2 of 72.7. She was admitted for further evaluation for possible acute on chronic COPD exacerbation. When she was examined this morning, she states her symptoms are completely resolved with the exception of her lower extremity swelling, which is the original complaint of why she came in. She has noticed that the erythema has gotten a little bit better, but the swelling continues to persist. She does endorse that she actually would not have come to the ER if she was not advised to come in. She states she is breathing at her baseline and really has no complaints today. PAST MEDICAL HISTORY: 1. COPD with chronic hypoxemic respiratory failure and hypercarbic respiratory failure, on 3 liters of nasal cannula and chronic steroids. 2. Chronic neck pain with chronic opioids. 3. Depression. She is on olanzapine. 4. Hyperlipidemia. 5. Hypertension. 6. Gastroesophageal reflux disease (GERD). 7. Migraine headaches without auras. 8. Essential tremors. 9. Hypothyroidism. PAST SURGICAL HISTORY: 1. Cervical spine effusion. 2. Left knee replacement. 3. Tubal ligation. SOCIAL HISTORY: Former smoker, [id number], who quit 3 years ago. Admits to social alcohol use but denies any illicit drug use. Her code status is a FULL CODE. FAMILY HISTORY: Was reviewed. Father has a history of cirrhosis, and mother has a history of colon cancer. ALLERGIES: No known drug allergies. REVIEW OF SYSTEMS: Constitutional: Denies any fevers, chills, night sweats, fatigue, or any weight loss. HEENT: Admits to a history of migraines. No change in vision, hearing loss, or upper respiratory-like symptoms. Cardiovascular: Denies any chest pain, palpitation, or shortness of breath. Respiratory: Endorses a chronic cough. No change from baseline. No dyspnea. No wheezing. No change in baseline shortness of breath on 3-4 liters of nasal cannula at home but is supposed to be on 3 liters because of a history of COPD. Gastrointestinal: Denies any nausea, vomiting, diarrhea, abdominal pain, change in appetite. Genitourinary: Denies any dysuria, increased urinary frequency. Skin: Denies any open wounds or ulcerations. Does endorse lower extremity bilateral swelling, erythema in the bilateral lower extremity, bilateral lower extremity erythema. Neurologic: Denies any headaches, dizziness, weakness. Psychiatric: Endorses a history of depression. HOME MEDICATIONS: Please review chart. PHYSICAL EXAMINATION: Vital signs: Temperature 97.7, pulse 94 regular rate, respiration 22, blood pressure 112/61 (78), pulse oximetry 88% on 3 liters of oxygen, weight is 95.3 kg. General: This is a very pleasant 60-year-old female who does not appear in any acute distress, who is appropriately answering questions, and not using any accessory muscles. HEENT: Atraumatic. Cushingoid features. Moist mucous membranes. No oral thrush noted. Trachea is midline. No lymphadenopathy but very large neck girth. Difficult to assess jugular venous distention (JVD). Cardiovascular: Regular rate and rhythm. No audible murmurs, rubs, or gallops. Respiration: Clear to auscultate bilaterally. No audible wheezing, rhonchi, or rales appreciated. Abdomen: Obese abdomen. Soft, nontender. Extremities: Lower extremities, pedal edema bilaterally, 1+ pitting edema on the left above the ankle but not on the right. No calf tenderness. Negative Homans sign bilaterally. Skin: No open wounds. No open ulcerations noted. Minimal bruising appreciated on the forearms bilaterally. Neurologic: Alert and oriented times three. Nonsomnolent. No focal deficits noted. Does have a baseline essential tremor that appears slightly mild. Psychiatric: Appropriate mood and affect. LABORATORIES: Hematology: WBC 4.6, hemoglobin 9.8, hematocrit 32.6, platelet 293. Chemistry: Sodium 139, potassium 3.8, chloride 94, carbon dioxide 42, anion gap of 3, BUN of 16, creatinine of 0.46, fasting glucose of 181, lactic acid of 1.3, magnesium 1.7, calcium 8.3. Arterial blood gas (ABG) from this morning: pH of 7.42, PCO2 of 72.7. Chest x-ray from 03/10/2020: Official report states evidence of COPD, platelike atelectasis versus linear fibrosis in the left base, unchanged. Chest x-ray was reviewed by me and Dr. Cunningham, which shows possible blunting of the costophrenic angles at the left side but no increased vascular congestion. IMPRESSION AND PLAN: 1. Bilateral lower extremity swelling. Possibly secondary to steroid dependency versus diastolic heart failure. The patient is on steroid outpatient. Has been on and off of a steroid taper. Because of her severe COPD, we do recommend that she continues with the steroids, but she can be discharged on 10 mg daily. She does have a pitting edema in the lower extremities. Do recommend diurese her very gently. The furosemide 20 mg by mouth daily is very appropriate just to make sure she does not go hypotensive. The patient does have a history of atrial fibrillation and is on apixaban, so deep venous thrombosis (DVT) is unlikely. Cellulitis is unlikely, as well, for she does not have a fever, and clinical examination is not consistent of infectious process. 2. History of chronic obstructive pulmonary disease, on 3 liters of oxygen outpatient. Maintain 88% to 92%, on chronic steroids outpatient. Clinically, the patient does not appear in a respiratory distress. Her ABG shows a normal pH with retention of CO2. We do not believe that she needs any bilateral positive airway pressure (BiPAP). We recommend that she can be discharged if cleared by primary medical team. To continue with her 3 liters of oxygen at home to maintain saturations between 88% to 92% and can be discharged on steroid 10 mg daily and followup with Dr. Montez as scheduled. Upon discharge, she also needs to continue with her home inhalers, such as her Incruse and her Advair. 3. History of diastolic heart failure. Please refer to plan #1. 4. History of atrial fibrillation. On apixaban and metoprolol 50 mg twice a day. She is currently rate controlled and in sinus rhythm. Continue medication as prescribed and can be discharged on it. Thank you for this consultation. We recommend that the patient can be discharged home from a pulmonary standpoint. I, Jr Cunningham, conducted an independent history and physical. I agree with the resident as outlined above. I believe the patient is close to her chronic stable state and has pedal edema likely from cor pulmonale and potentially chronic steroid use. Her respiratory status is unchanged from baseline. Follow up with pulmonary as scheduled. ELVIA
[2020-03-11] MEDS ORDERED: HumaLOG INSULIN (NovoLOG) PER UNIT SC SCH ×2 (12:00→21:00)
--- NOTE | 2020-03-11 16:30 | DS.PDOC ---
Discharge Summary General Date of Admission March 10, 2020 at 20:51 Date of Discharge 03/11/20 Discharge Summary PROCEDURES PERFORMED DURING STAY: [None]. ADMITTING DIAGNOSES: Acute on chronic hypercarbic and hypoxemic respiratory failure Altered mental status, somnolence Atrial fibrillation Type 2 diabetes mellitus Diastolic congestive heart failure. Depression Hypothyroidism Chronic pain DISCHARGE DIAGNOSES: Acute on chronic hypercarbic and hypoxemic respiratory failure Altered mental status, somnolence Atrial fibrillation Type 2 diabetes mellitus Diastolic congestive heart failure. Depression Hypothyroidism Chronic pain COMPLICATIONS/CHIEF COMPLAINT: Acute On Chronic Resp Failure With Hypercapnia. HISTORY OF PRESENT ILLNESS: This is a 60-year-old female with the pertinent past medical history of chronic obstructive pulmonary disease (COPD) on chronic steroids and 3 liters of oxygen at home who sees Dr. Montez outpatient, history of diastolic dysfunction, paroxysmal atrial fibrillation on apixaban, who is presenting to our emergency room (ER) for a bilateral lower extremity swelling. She states that this has been going on for the last 4 days. She has noticed some excoriation in her lower extremities that have been erythematous, and her swelling has gotten worse. She states they feel very tight and full, but she is able to ambulate with no problems. She denies any fevers, chills, or night sweats. She denies any open wounds in her lower extremities. She does endorse that she is on 3-4 liters on oxygen at home and does see Dr. Montez outpatient and believes the last appointment was last year prior to her recurrent admissions this year. She endorses she has been compliant with all her medications, and she has not had any problems with bleeding or shortness of breath. She does have chronic cough that has not changed from baseline. She is on Incruse and Advair outpatient, as well as steroid since her last discharge. Lastly, she does endorse that she called her primary care office yesterday citing of this complaint, and she was advised by the triage nurses to actually come to the ER for further evaluation. In the ER, her vital signs were stable. She was slightly tachycardic with a rate of 113 with a blood pressure of 135/69, mean arterial pressure (MAP) of 91, saturating at 98% on 4 liters of nasal cannula. She was afebrile. She did not have a leukocytosis. Her chemistries are within normal limits. She had a slight elevation or pro-BNP of 322. Her arterial blood gas (ABG) this morning did show her pH was within normal limits with a slightly elevated PCO2 of 72.7. She was admitted for further evaluation for possible acute on chronic COPD exacerbation. When she was examined this morning, she states her symptoms are completely resolved with the exception of her lower extremity swelling, which is the original complaint of why she came in. She has noticed that the erythema has gotten a little bit better, but the swelling continues to persist. She does endorse that she actually would not have come to the ER if she was not advised to come in. She states she is breathing at her baseline and really has no complaints today. HOSPITAL COURSE: see above During hospital stay following issue addressed 1. Bilateral lower extremity swelling. Possibly secondary to steroid dependency versus diastolic heart failure. The patient is on steroid outpatient. Has been on and off of a steroid taper. Because of her severe COPD, we do recommend that she continues with the steroids, but she can be discharged on 10 mg daily. She does have a pitting edema in the lower extremities. Do recommend diurese her very gently. The furosemide 20 mg by mouth daily is very appropriate just to make sure she does not go hypotensive. The patient does have a history of atrial fibrillation and is on apixaban, so deep venous thrombosis (DVT) is unlikely. Cellulitis is unlikely, as well, for she does not have a fever, and clinical examination is not consistent of infectious process. 2. History of chronic obstructive pulmonary disease, on 3 liters of oxygen outpatient. Maintain 88% to 92%, on chronic steroids outpatient. Clinically, the patient does not appear in a respiratory distress. Her ABG shows a normal pH with retention of CO2. We do not believe that she needs any bilateral positive airway pressure (BiPAP). We recommend that she can be discharged if cleared by primary medical team. To continue with her 3 liters of oxygen at home to maintain saturations between 88% to 92% and can be discharged on steroid 10 mg daily and followup with Dr. Montez as scheduled. Upon discharge, she also needs to continue with her home inhalers, such as her Incruse and her Advair. DISCHARGE MEDICATIONS: Please see below. ALLERGIES: Please see below. PHYSICAL EXAMINATION ON DISCHARGE: VITAL SIGNS: Please see below. General: This is a very pleasant 60-year-old female who does not appear in any acute distress, who is appropriately answering questions, and not using any accessory muscles. HEENT: Atraumatic. Cushingoid features. Moist mucous membranes. No oral thrush noted. Trachea is midline. No lymphadenopathy but very large neck girth. Difficult to assess jugular venous distention (JVD). Cardiovascular: Regular rate and rhythm. No audible murmurs, rubs, or gallops. Respiration: Clear to auscultate bilaterally. No audible wheezing, rhonchi, or rales appreciated. Abdomen: Obese abdomen. Soft, nontender. Extremities: Lower extremities, pedal edema bilaterally, 1+ pitting edema on the left above the ankle but not on the right. No calf tenderness. Negative Homans sign bilaterally. Skin: No open wounds. No open ulcerations noted. Minimal bruising appreciated on the forearms bilaterally. Neurologic: Alert and oriented times three. Nonsomnolent. No focal deficits noted. Does have a baseline essential tremor that appears slightly mild. Psychiatric: Appropriate mood and affect. LABORATORY DATA: Please see below. IMAGING: PORTABLE CHEST X-RAY, SINGLE VIEW: HISTORY: Dyspnea and cough. COMPARISON CHEST X-RAY: 02/22/2020 FINDINGS: Monitoring electrodes and oxygen delivery tubing are seen. There is platelike atelectasis again noted in the left base. Left hemidiaphragm is slightly elevated, unchanged. No pleural effusion is seen. Interstitial markings are prominent in both bases as before. No new infiltrate. Oligemic/emphysematous changes are noted in the upper lobes. IMPRESSION: Evidence of COPD. Platelike atelectasis versus linear fibrosis left base, unchanged. No new infiltrate. PROGNOSIS: Fair ACTIVITY: [As tolerated]. DIET: Cardiac DISPOSITION: 01 Home, Self-Care. ITEMS TO FOLLOWUP ON ON OUTPATIENT: With supervisory it specialist and PCP DISCHARGE CONDITION: [Stable]. TIME SPENT ON DISCHARGE: Greater than 30 minutes. Vital Signs/I&Os Vital Signs Date Time Temp Pulse Resp B/P (MAP) Pulse Ox O2 Delivery O2 Flow Rate FiO2 03/11/20 08:46 112/61 03/11/20 08:00 3.0 03/11/20 08:00 97.7 94 22 86 Room Air I&O- Last 24 Hours up to 6 AM 03/11/20 06:00 Intake Total 210 ml Balance 210 ml Laboratory Data Labs 24H Laboratory Tests 2 03/10/20 17:49: Immature Granulocyte % (Auto) 1.5, Neutrophils (%) (Auto) 73.2H, Lymphocytes (%) (Auto) 17.6L, Monocytes (%) (Auto) 6.9H, Eosinophils (%) (Auto) 0.5, Basophils (%) (Auto) 0.3, Neutrophils # (Auto) 7.0, Lymphocytes # (Auto) 1.7, Monocytes # (Auto) 0.7, Eosinophils # (Auto) 0.1, Basophils # (Auto) 0.0, Nucleated Red Blood Cells % (auto) 0.0, Prothrombin Time 14.7H, Prothromb Time International Ratio 1.18, Anion Gap 2L, Glomerular Filtration Rate > 60.0, Lactic Acid Level 1.3, Calcium Level 8.3L, Total Bilirubin 0.4, Direct Bilirubin 0.2, Aspartate Amino Transf (AST/SGOT) 12, Alanine Aminotransferase (ALT/SGPT) 30, Alkaline Phosphatase 85, Total Creatine Kinase 19L, Creatine Kinase MB < 1.0, Creatine Kinase MB Relative Index 5.26H, Troponin I < 0.02, [id number]-Type Natriuretic Peptide 322H, Total Protein 6.4, Albumin 3.0L, Albumin/Globulin Ratio 0.9L, Thyroid Stimulating Hormone (TSH) 1.090 03/10/20 17:58: POC pH (Misc Panel) 7.431, POC Base Excess (Misc Panel) 26.0H, POC Saturated Percent O2 (Misc) 100H, POC pO2 (Misc Panel) 186.0H, POC pCO2 (Misc Panel) 75.7*H, POC HCO3 (Misc Panel) 50.4H, POC Total CO2 (Misc Panel) > 50.0H 03/10/20 19:14: Coronavirus (COVID-19)(PCR) NEGATIVE 03/11/20 00:40: Bedside Glucose (Misc Panel) 176H 03/11/20 04:42: Nucleated Red Blood Cells % (auto) 0.4H, Anion Gap 3L, Glomerular Filtration Rate > 60.0, Calcium Level 8.3L, Magnesium Level 1.7L 03/11/20 05:40: Blood Gas Bicarbonate Standard 42.5H, Arterial Blood pH 7.421, Arterial Blood Partial Pressure CO2 72.7*H, Arterial Blood Partial Pressure O2 68.4L, Arterial Blood Total CO2 48.4H, Arterial Blood HCO3 46.2H, Arterial Blood Base Excess 18.6H, Arterial Blood Oxygen Saturation 92.6L 03/11/20 05:48: Bedside Glucose (Misc Panel) 166H 03/11/20 07:32: Urine Color YELLOW, Urine Appearance HAZY, Urine pH 7.0, Urine Specific [place] 1.013, Urine Protein NEGATIVE, Urine Glucose (UA) NEGATIVE, Urine Ketones TRACE H, Urine Blood NEGATIVE, Urine Nitrite NEGATIVE, Urine Bilirubin NEGATIVE, Urine Urobilinogen 0.2, Urine Leukocyte Esterase NEGATIVE, Urine WBC (Auto) 0, Urine RBC (Auto) 0, Urine Hyaline Casts (Auto) 0, Urine Bacteria (Auto) NEGATIVE, Urine Squamous Epithelial Cells 1, Urine Mucus (Auto) SMALL, Urine Sperm (Auto) , Urine Opiates Screen POSITIVEH, Urine Methadone Screen NEGATIVE, Urine Barbiturates Screen NEGATIVE, Urine Phencyclidine Screen NEGATIVE, Urine Amphetamines Screen NEGATIVE, Urine Benzodiazepines Screen NEGATIVE, Urine Cocaine Metabolite Screen NEGATIVE, Urine Cannabinoids Screen NEGATIVE 03/11/20 08:50: CBC/BMP Laboratory Tests 03/10/20 17:49 03/11/20 04:42 FSBS Laboratory Tests Test 03/11/20 00:40 03/11/20 05:48 Range/Units Bedside Glucose (Misc Panel) 176 166 70-105 MG/DL Microbiology Microbiology 03/10/20 Gram Stain - Final, Resulted 03/10/20 Sputum Culture, Resulted Pending 03/10/20 Blood Culture, Received Pending Discharge Medications Scheduled Apixaban (Eliquis) 5 Mg Tablet, 5 MG PO BID, (Reported) Atorvastatin Calcium (Atorvastatin Calcium) 20 Mg Tab, 20 MG PO DAILY, (Repo rted) Dexlansoprazole (Dexilant) 60 Mg Cap, 60 MG PO DAILY, (Reported) Duloxetine Hcl (Duloxetine HCl) 60 Mg Capsule.dr, 60 MG PO DAILY, (Reported) Furosemide (Furosemide) 40 Mg Tablet, 40 MG PO DAILY, (Reported) Gabapentin (Gabapentin) 600 Mg Tab, 600 MG PO BID, (Reported) Glipizide (Glipizide) 5 Mg Tablet, 5 MG PO DAILY, (Reported) Insulin Detemir (Levemir) 100 Unit/1 Ml Vial, 20 UNITS SC DAILY, (Reported) Levothyroxine Sodium (Levothyroxine Sodium) 25 Mcg Tablet, 25 MCG PO DAILY, (Reported) Metformin HCl (Metformin HCl) 500 Mg Tablet, 1,000 MG PO BIDWM, (Reported) Metoprolol Tartrate (Metoprolol Tartrate) 50 Mg Tablet, 50 MG PO BID, (Reported) Olanzapine (Olanzapine) 5 Mg Tablet, 5 MG PO DAILY, (Reported) Paroxetine HCl (Paroxetine HCl) 40 Mg Tab, 40 MG PO DAILY, (Reported) Plecanatide (Trulance) 3 Mg Tablet, 3 MG PO DAILY, (Reported) Prednisone (Prednisone) 10 Mg Tab.ds.pk, 10 MG PO DAILY Salmeterol/Fluticasone (Advair 500-50 Diskus) 1 Each Blst.w.dev, 1 PUFF INH BID, (Reported) Umeclidinium [place] (Incruse Ellipta) 62.5 Mcg/Inh Inh, 1 PUFF INH DAILY, (Reported) Scheduled PRN Albuterol Sulf (Albuterol Sulfate) 2.5 Mg/3 Ml Vial.neb, 2.5 MG INH Q4H PRN for SHORTNESS OF BREATH, (Reported) Albuterol Sulfate (Ventolin Hfa) 18 Gm Hfa.aer.ad, 2 PUFF INH Q4H PRN for SHORTNESS OF BREATH, (Reported) Oxycodone HCl (Oxycodone HCl) 5 Mg Tab, 5 MG PO TID PRN for PAIN, (Reported) Allergies Coded Allergies: No Known Allergies (Verified Allergy, Unknown, 12/09/19) JOHN MORALES DO March 11, 2020 16:30
== END 2020-03-11 10:59 | disposition home or self-care (01) | DRG 189 ==
LOC: M ED 17:26 → EDBD 17:26 → M ED INP 20:51 → ENRESERV 22:53 → CANRESERV 22:53 → ENRESERV 23:14 → M ICU 03-11 00:14
PROVIDERS: ADMIT Internal Medicine; ATTEND Internal Medicine
DX: J96.21 Acute and chronic respiratory failure with hypoxia (principal); I50.32 Chronic diastolic (congestive) heart failure; J96.22 Acute and chronic respiratory failure with hypercapnia; J44.9 Chronic obstructive pulmonary disease, unspecified; I48.0 Paroxysmal atrial fibrillation; E11.9 Type 2 diabetes mellitus without complications; F32.9 Major depressive disorder, single episode, unspecified; E03.9 Hypothyroidism, unspecified; G89.29 Other chronic pain; Z79.899 Other long term (current) drug therapy; Z79.4 Long term (current) use of insulin; E78.5 Hyperlipidemia, unspecified; G43.909 Migraine, unspecified, not intractable, without status migrainosus; K21.9 Gastro-esophageal reflux disease without esophagitis; M54.2 Cervicalgia; Z96.652 Presence of left artificial knee joint; Z87.891 Personal history of nicotine dependence; G25.0 Essential tremor; Z79.82 Long term (current) use of aspirin

== ENCOUNTER 2020-03-24 22:33 | Inpatient (IN) | payer MEDICARE, MEDICAID ==
[~2020-03-24] VITALS: Ht 167.6 cm; Wt 94.6 kg
[2020-03-24] MEDS: LEVEMIR (INSULIN DETEMIR) 1 UNITS/0.01ML SC SCH (21:00)
[~2020-03-24 22:33] MED LIST changes: -METH-1164 PO; +METH1TAB40 PO; -PLEC3TAB PO; +PRED10PA2 PO; +TRUL3TAB PO
[2020-03-24] MEDS ORDERED: COMBIVENT RESPIMAT 100-20MCG INHALER 4GM INH ONE (23:00)
[2020-03-24] MEDS ORDERED: methylPREDNISolone INJ 125 MG/2 ML VIAL (J2930) IV ONE (23:00)
[2020-03-24 23:09] LABS: BASO % 0.5 % (0.0-1.0); EOS # 0.2 10^3/uL (0.0-0.5); EOS % 2.6 % (0.0-3.0); HEMATOCRIT 34.2 % (36.0-47.0); HEMOGLOBIN 9.9 g/dl (12.0-15.5); LYMPH # 2.5 10^3/uL (1.5-5.0); LYMPH % 31.2 % (24.0-44.0); MEAN CORPUSCULAR HGB CONC 28.9 g/dl (32.0-36.5); MEAN CORPUSCULAR VOLUME 93.2 fl (80.0-96.0); MONO # 0.7 10^3/uL (0.0-0.8); MONO % 8.6 % (0.0-5.0); NEUTROPHILS # 4.4 10^3/uL (1.5-8.5); NEUTROPHILS % 55.7 % (36.0-66.0); PLATELET COUNT, AUTOMATED 302 10^3/uL (150-450); RED BLOOD COUNT 3.67 10^6/uL (4.00-5.40); WHITE BLOOD COUNT 7.9 10^3/uL (4.0-10.0)
[2020-03-24 23:10] LABS: ABG BASE EXCESS 18.1 (-2.0-2.0); ABG HCO3 46.9 MEQ/L (22.0-26.0); ABG O2 SATURATION 92.6 % (95.0-99.0); ABG PARTIAL PRESSURE CO2 83.4 mmHg (35.0-45.0); ABG PARTIAL PRESSURE O2 69.5 mmHg (75.0-100.0); ABG TOTAL CO2 49.5 MEQ/L (22.0-29.0); ABG pH (ARTERIAL) 7.368 UNITS (7.350-7.450)
[2020-03-24 23:20] LABS: INR 1.05; PROTHROMBIN TIME 13.4 SECONDS (11.8-14.0)
[2020-03-24 23:22] LABS: D-DIMER QUANT 297.3 ng/ml (<500)
[2020-03-25 00:05] LABS: ALT/SGPT 24 U/L (12-78); BILIRUBIN,DIRECT < 0.1 MG/DL (0.0-0.2); BILIRUBIN,TOTAL 0.3 MG/DL (0.2-1.0); BLOOD UREA NITROGEN 11 MG/DL (7-18); CALCIUM LEVEL 8.7 MG/DL (8.5-10.1); CHLORIDE LEVEL 94 MEQ/L (98-107); CK-MB VALUE MASS < 1.0 NG/ML (<3.6); CPK CREATINE PHOSPHOKINASE 28 U/L (26-192); CREATININE FOR GFR 0.66 MG/DL (0.55-1.30); GLOMERULAR FILTRATION RATE > 60.0 (>51); GLUCOSE, FASTING 94 MG/DL (70-100); MB/CK RELATIVE INDEX 3.57 (< OR =4); NT-PRO BNP 277 PG/ML (<125); POTASSIUM SERUM 3.6 MEQ/L (3.5-5.1); SODIUM LEVEL 142 MEQ/L (136-145); TOTAL PROTEIN 6.4 GM/DL (6.4-8.2); TROPONIN I < 0.02 NG/ML (< 0.10)
[2020-03-25 00:06] LABS: CARBON DIOXIDE LEVEL 43 MEQ/L (21-32)
--- NOTE | 2020-03-25 00:31 | REPVR ---
PROCEDURE INFORMATION: Exam: US Duplex Lower Extremity Veins, Bilateral Exam date and time: 03/25/2020 12:17 AM Age: 60 years old Clinical indication: Pain; Leg, lower; Bilateral; Additional info: Bilat leg pain R/O dvt TECHNIQUE: Imaging protocol: Real-time duplex ultrasound of the extremities with 2-D read scale, color Doppler flow and spectral waveform analysis with image documentation. Complete exam focused on the bilateral lower extremity veins. COMPARISON: US Duplex, Ext LOWER veins, bilat BILATERAL 10/26/2019 1:42 PM FINDINGS: Right deep veins: Unremarkable. The common femoral, femoral, proximal profunda femoral and popliteal veins are patent without thrombus. Normal Doppler waveforms. Normal compressibility and/or augmentation response. Right superficial veins: Saphenofemoral junction is patent without thrombus. Left deep veins: Unremarkable. The common femoral, femoral, proximal profunda femoral and popliteal veins are patent without thrombus. Normal Doppler waveforms. Normal compressibility and/or augmentation response. Left superficial veins: Saphenofemoral junction is patent without thrombus. Soft tissues: Unremarkable. IMPRESSION: No evidence of deep vein thrombosis. Electronically signed by: Padilla Balderas On 03/25/2020 00:31:07 AM
[2020-03-25] MEDS ORDERED: COMBIVENT RESPIMAT 100-20MCG INHALER 4GM INH ONE (00:45)
[2020-03-25] MEDS ORDERED: PRED10TA2 PO (01:03)
[2020-03-25] MEDS ORDERED: MOM 30ML SUSPENSION UDC PO PRN (02:00)
[2020-03-25] MEDS ORDERED: ALBUTEROL SULFATE 2.5 MG/0.5 ML INH NEB SOLN NEB PRN (02:00)
[2020-03-25] MEDS ORDERED: ACETAMINOPHEN TAB 650MG DOSE (2X325MG) PO PRN (02:00)
[2020-03-25] MEDS ORDERED: MAALOX 30 ML SUSP *UDC PO PRN (02:00)
--- NOTE | 2020-03-25 02:02 | HPEPDOC ---
General Date of Admission Date of Service: Mar 25, 2020 Chief Complaint The patient is a 60-year-old female admitted with a reason for visit of SOB. Source: Patient Exam Limitations: No limitations Timing/Duration: Other Severity: Moderate Associated Symptoms: Other (shortness of breath) History of Present Illness This is a 60 years old, obese, white female with frequent admissions to this hospital with diagnosis of exacerbation of COPD again, presented to ED with chief complaints of increasing shortness of breath since last few days. Denies any chest pain, nausea, vomiting, abdominal pain, some dry cough but no phlegm. Patient received 2 nebulizer treatment andsteroids in ED with mild improvement, hence we will called in to admit patient for further residential Medications Scheduled Atorvastatin Calcium (Atorvastatin Calcium) 20 Mg Tab, 20 MG PO QHS, (Reported) Dexlansoprazole (Dexilant) 60 Mg Cap, 60 MG PO DAILY, (Reported) Duloxetine Hcl (Duloxetine HCl) 60 Mg Capsule.dr, 60 MG PO DAILY, (Reported) Furosemide (Furosemide) 40 Mg Tablet, 40 MG PO DAILY, (Reported) Gabapentin (Gabapentin) 600 Mg Tab, 600 MG PO TID, (Reported) Insulin Detemir (Levemir) 100 Unit/1 Ml Vial, 20 UNITS SC QHS, (Reported) Levothyroxine Sodium (Levothyroxine Sodium) 25 Mcg Tablet, 25 MCG PO DAILY, (Reported) Metformin HCl (Metformin HCl) 500 Mg Tablet, 1,000 MG PO BIDWM, (Reported) Metoprolol Tartrate (Metoprolol Tartrate) 50 Mg Tablet, 50 MG PO BID, (Reported) Olanzapine (Olanzapine) 5 Mg Tablet, 5 MG PO DAILY, (Reported) Paroxetine HCl (Paroxetine HCl) 40 Mg Tab, 40 MG PO DAILY, (Reported) Plecanatide (Trulance) 3 Mg Tablet, 3 MG PO QHS, (Reported) Prednisone (Prednisone) 10 Mg Tablet, 10 MG PO DAILY, (Reported) Salmeterol/Fluticasone (Advair 500-50 Diskus) 1 Each Blst.w.dev, 1 PUFF INH BID, (Reported) Umeclidinium [place] (Incruse Ellipta) 62.5 Mcg/Inh Inh, 1 PUFF INH DAILY, (Reported) Scheduled PRN Albuterol Sulf (Albuterol Sulfate) 2.5 Mg/3 Ml Vial.neb, 2.5 MG INH Q4H PRN for SHORTNESS OF BREATH, (Reported) Albuterol Sulfate (Ventolin Hfa) 18 Gm Hfa.aer.ad, 2 PUFF INH Q4H PRN for SHORTNESS OF BREATH, (Reported) Oxycodone HCl (Oxycodone HCl) 5 Mg Tab, 5 MG PO TID PRN for PAIN, (Reported) Allergies Coded Allergies: No Known Allergies (Verified Allergy, Unknown, 12/09/19) Past Medical History Medical History COPD, A. fib, chronic hypoxic and hypercarbic respiratory failure, home oxygen, chronic neck pain, depression, hyperlipidemia, hypertension, GERD, migraine, essential tremors, hypothyroidism Surgical History Cervical spine fusion, left knee replacement, tubal ligation Social History * Smoker: former Smoker Alcohol: Denies Drugs: denies A-FIB/CHADSVASC A-FIB History Current/History of A-Fib/PAF?: No Review of Systems Constitutional: Denies: Chills, Fever, Malaise, Night Sweats, Weakness, Fat igue, Weight Loss, Lethargy, Other Eyes: Denies: Pain, Vision change, Conjunctivae inflammation, Eyelid inflammation, Redness, Other Skin: Denies: Rash, Lesions, Jaundice, Bruising, Itching, Dry, Breakdown, Nail Changes, Other Pulmonary: Reports: Dyspnea, Cough Cardiovascular: Denies: Chest Pain, Palpitations, Orthopnea, Paroxysmal Noc. Dyspnea, Edema, Lt Headedness, Other Symptoms Gastrointestinal: Denies: Nausea, Vomiting, Abdominal Pain, Diarrhea, Constipation, Melena, Hematochezia, Other Symptoms Genitourinary: Denies: Dysuria, Frequency, Incontinence, Hematuria, Retention, Other Symptoms Musculoskeletal: Denies: Neck Pain, Back Pain, Shoulder Pain, Arm Pain, Hand Pain, Leg Pain, Foot Pain, Joint Pain, Muscle Pain, Spasms, Other Symptoms Neurological: Denies: Weakness, Numbness, Incoordination, Change in speech, Confusion, Seizures, Other Symptoms Psych: Denies: Mood Normal, Anxiety, Depression, Memory Issues, Thoughts of Self Harm, Anger, Thoughts of Harming Other, Other Psych Physical Examination General Exam: Positive: Alert, Cooperative Eye Exam: Positive: PERRLA ENT Exam: Positive: Atraumatic, Mucous membr. moist/pink Neck Exam: Positive: Supple Chest Exam: Positive: Clear to auscultation, Other (, decreased breath sounds bilaterally with expiratory wheezings) Heart Exam: Positive: Rate Normal, Regular Rhythm, Normal S1, Normal S2 Abdomen Exam: Positive: Normal bowel sounds, Soft Extremity Exam: Positive: Normal pulses Skin Exam: Positive: Nl turgor and temperature Neuro Exam: Positive: Strength at 5/5 X4 ext, Sensation Intact, Cranial Nerves 3-12 NL Psych Exam: Positive: Mood NL, Oriented x 3 Vital Signs Vital Signs Date Time Temp Pulse Resp B/P (MAP) Pulse Ox O2 Delivery O2 Flow Rate FiO2 03/24/20 23:34 18 Nasal Cannula 6.0 03/24/20 22:41 98.2 124 134/70 (91) 80 Laboratory Data Labs 24H Laboratory Tests 2 03/24/20 22:59: Immature Granulocyte % (Auto) 1.4, Neutrophils (%) (Auto) 55.7, Lymphocytes (%) (Auto) 31.2, Monocytes (%) (Auto) 8.6H, Eosinophils (%) (Auto) 2.6, Basophils (%) (Auto) 0.5, Neutrophils # (Auto) 4.4, Lymphocytes # (Auto) 2.5, Monocytes # (Auto) 0.7, Eosinophils # (Auto) 0.2, Basophils # (Auto) 0.0, Nucleated Red Blood Cells % (auto) 0.3H, Prothrombin Time 13.4, Prothromb Time International Ratio 1.05, D-Dimer, Quantitative 297.30, Anion Gap 5L, Glomerular Filtration Rate > 60.0, Calcium Level 8.7, Total Bilirubin 0.3, Direct Bilirubin < 0.1, Aspartate Amino Transf (AST/SGOT) 15, Alanine Aminotransferase (ALT/SGPT) 24, Alkaline Phosphatase 83, Total Creatine Kinase 28, Creatine Kinase MB < 1.0, Creatine Kinase MB Relative Index 3.57, Troponin I < 0.02, ZO-Mmj-Y-Type Natriuretic Peptide 277H, Total Protein 6.4, Albumin 3.0L, Albumin/Globulin Ratio 0.9L, Thyroid Stimulating Hormone (TSH) 2.240 03/24/20 23:02: Blood Gas Bicarbonate Standard 42.0H, Arterial Blood pH 7.368, Arterial Blood Partial Pressure CO2 83.4*H, Arterial Blood Partial Pressure O2 69.5L, Arterial Blood Total CO2 49.5H, Arterial Blood HCO3 46.9H, Arterial Blood Base Excess 18.1H, Arterial Blood Oxygen Saturation 92.6L CBC/BMP Laboratory Tests 03/24/20 22:59 Problems (1) COPD with acute exacerbation Status: Acute Problem Text: Admit patient to [facility] floor for further management On EKG patient is in sinus take 104. No evidence of any atrial fibrillation Chest x-rays, NAD. Venous Dopplers are negative for DVT WBC count 7.9, hemoglobin 9.9. BNP 277. Electrolytes are normal, BUN was 11, creatinine 0.66 Blood gas shows pH of 7.36, PCO2 83, PO2 69 Saline lock DuoNeb every 4 hours and Proventil every 2 hours when necessary Solu-Medrol 60 mg IV every 6 hours Oxygen support to keep pulse ox between 88-92% DVT prophylaxis with heparin Diet is 2 g sodium Bed rest with bathroom privileges (2) Hypothyroidism Status: Chronic Problem Text: Continue home meds (3) Atrial fibrillation Status: Acute Problem Text: On last admission when the old chart reviewed. Patient had a history of A. fib and she was started on the beta blockers and eliquis on anticoagulation , But on this admission. EKG shows sinus tach with 104/m, no atrial fibrillation and patient has not taken about meds Will order to get patient's office records from her PCP to further evaluate need for beta blockers on anticoagulation (4) Depression Status: Chronic Problem Text: Continue home meds (5) Chronic pain syndrome Status: Chronic Problem Text: Continue home meds Plan / VTE VTE Prophylaxis Ordered?: Yes STEW COWAN MD Mar 25, 2020 02:02
[2020-03-25 03:00] VITALS: BP 128/85
[2020-03-25] MEDS: ATORVASTATIN 20 MG TAB PO SCH ×2 (03:24→20:20)
[2020-03-25] MEDS ORDERED: DEXTROSE 50% 50 ML SYRINGE IV PRN (03:30)
[2020-03-25] MEDS ORDERED: GLUCOSE 4GM CHEW TABLET PO PRN (03:30)
[2020-03-25] MEDS ORDERED: GLUCAGON INJ 1MG VIAL SC PRN (03:30)
[2020-03-25] MEDS: IPRATROPIUM 0.5MG/ALBUTEROL 2.5MG INH SOL UD 3ML (DUONEB)(J7620) NEB SCH ×5 (04:30→20:00)
[2020-03-25] MEDS: methylPREDNISolone INJ 125 MG/2 ML VIAL (J2930) IV SCH ×2 (05:49→12:31)
[2020-03-25] MEDS: LEVOTHYROXINE 25MCG TABLET (0.025MG) PO SCH (05:49)
[2020-03-25 06:00] VITALS: BP 126/84
[2020-03-25] MEDS: ADVAIR HFA 230/21MCG INHALER INH SCH ×2 (06:17→22:36)
[2020-03-25] MEDS ORDERED: metFORMIN (GLUCOPHAGE) 500 MG TAB PO SCH (08:00)
[2020-03-25 08:41] LABS: HEMATOCRIT 32.4 % (36.0-47.0); HEMOGLOBIN 9.7 g/dl (12.0-15.5); MEAN CORPUSCULAR HEMOGLOBIN 27.6 pg (27.0-33.0); MEAN CORPUSCULAR HGB CONC 29.9 g/dl (32.0-36.5); MEAN CORPUSCULAR VOLUME 92.3 fl (80.0-96.0); PLATELET COUNT, AUTOMATED 297 10^3/uL (150-450); RED BLOOD COUNT 3.51 10^6/uL (4.00-5.40); WHITE BLOOD COUNT 8.5 10^3/uL (4.0-10.0)
--- NOTE | 2020-03-25 08:42 | ECGEPIP ---
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
[2020-03-25 08:50] LABS: BLOOD UREA NITROGEN 14 MG/DL (7-18); CALCIUM LEVEL 8.7 MG/DL (8.5-10.1); CARBON DIOXIDE LEVEL 41 MEQ/L (21-32); CHLORIDE LEVEL 91 MEQ/L (98-107); CREATININE FOR GFR 0.55 MG/DL (0.55-1.30); GLOMERULAR FILTRATION RATE > 60.0 (>51); GLUCOSE, FASTING 221 MG/DL (70-100); MAGNESIUM LEVEL 1.6 MG/DL (1.8-2.4); SODIUM LEVEL 138 MEQ/L (136-145)
[2020-03-25] MEDS: HumaLOG INSULIN (NovoLOG) PER UNIT SC SCH ×4 (09:04→20:31)
[2020-03-25] MEDS: HEPARIN SOD (PORCINE) 5000UNITS/ML VIAL (J1644 PER 1000UNITS) SC SCH ×2 (09:04→20:19)
[2020-03-25] MEDS: OLANZapine 5 MG TAB PO SCH (09:05)
[2020-03-25] MEDS: GABAPENTIN 300 MG CAP PO SCH ×3 (09:05→20:19)
[2020-03-25] MEDS: DOCUSATE SODIUM 100 MG CAP PO SCH ×2 (09:05→20:20)
[2020-03-25] MEDS: PARoxetine 20 MG TAB PO SCH (09:05)
[2020-03-25] MEDS: DULoxetine 30 MG CAP (CYMBALTA) PO SCH (09:05)
[2020-03-25] MEDS: FUROSEMIDE 40 MG TAB PO SCH (09:05)
[2020-03-25] MEDS: METOPROLOL TART 50 MG TAB PO SCH ×2 (09:06→20:20)
[2020-03-25] MEDS: oxyCODONE 5MG TAB PO PRN ×2 (09:06→20:21)
[2020-03-25 09:09] LABS: LYMPHOCYTES 6 % (16-44); MONOCYTES 1 % (0-5); NEUTROPHILS 92 % (28-66)
[2020-03-25 09:11] LABS: ANISOCYTOSIS 1+; PLATELET ESTIMATE NORMAL (NORMAL)
--- NOTE | 2020-03-25 09:57 | REP ---
CHEST SINGLE VIEW: COMPARISON: 03/10/2020 Mild biapical pleural thickening is unchanged. Diffuse interstitial fibrosis is unchanged. There is no acute infiltrate. The heart is normal in size. There is calcification and tortuosity of the thoracic aorta. Mediastinal silhouette is unchanged. IMPRESSION: Stable chronic findings. No evidence of acute infiltrate. Electronically Signed by Yogi Jones MD 03/25/2020 12:39 P
[2020-03-25] MEDS ORDERED: MAG SULF 1GM/100ML (MAG RUN) 1 GM in IV 1 EA IV ONE (10:00)
[2020-03-25] MEDS ORDERED: FUROSEMIDE 20MG/2ML VIAL (J1940) IV ONE (13:45)
--- NOTE | 2020-03-25 13:48 | IPNPDOC ---
Text Note Date of Service The patient was seen on 03/25/20. NOTE Subjective: Patient is a 60-year-old female with a PMHx COPD, Chronic hypoxic and hypercarbic respiratory failure, HTN, A. fib, DLP, Hypothyroidism, Chronic neck pain, Migraines, Essential tremors, Depression, GERD who presents to the ER with complaints of shortness of breath. Patient was admitted to the hospital service for suspected COPD exacerbation. Patient was seen and examined at the bedside. Currently, patient reports that her breathing is doing significantly better. She denies any chest pain, palpitations. Does report a cough. Denies any nausea, vomiting, abdominal pain, diarrhea, or urinary discomfort. She does report lower extremity swelling. Objective: Vitals (See below) General: Lying in bed, no acute distress, comfortable, AAOx3 HEENT: NC, AT CVS: +S1S2 Lungs: Air entry appears to be fair bilaterally. Canals appear to be wheezing at bilateral lung lee. No evidence of crackles or rhonchi Abdomen: Soft, ND, NT Extremities: There does appear to be at least 1+ pitting edema bilaterally, - Calf tenderness Assessment and plan: Shortness of breath - likely 2/2 acute exacerbation of COPD, possibly 2/2 decompensated diastolic CHF - Currently, patient reports that her breathing is doing significantly better - Hemodynamically stable and afebrile - Still is requiring supplemental oxygen, slightly higher than baseline - Physical with evidence of wheezing bilaterally - ECHO 02/04/2020: Evidence of diastolic dysfunction, grade 1 - CXR 03/25: Stable chronic findings. No evidence of acute infiltrate. - Will continue with Solu-Medrol; will reduce dose slightly - Patient has been continued with furosemide orally; will give a single dose furosemide IV - c/w inhaled therapy as ordered Hypomagnesemia - Will supplement Chronic hypoxic and hypercarbic respiratory failure - Upon admission. Patient did have an elevated PCO2 at 83 - However, currently her breathing has done significantly better - Currently is requiring supplemental oxygen, slightly higher than her baseline of 4 L HTN - BP well controlled - c/w Metoprolol A. fib - Questionable history - Patient was discharged on 03/11 with A. fib and was prescribed Eliquis - However review of EKGs have revealed sinus tachycardia - Currently not on full anticoagulation DLP - c/w Atorvastatin IDDM2 with Neuropathy - Will discontinue metformin - c/w ISS and Levemir - c/w Gabapentin Hypothyroidism - c/w Levothyroxine Chronic neck pain / Migraines - c/w pain regimen as ordered; based on outpatient prescription Depression - c/w Olanzapine, Duloxetine and Paroxetine DVT prophylaxis - c/w Heparin VS,Fishbone, I+O VS, Fishbone, I+O Laboratory Tests 03/24/20 22:59 03/25/20 07:32 Vital Signs Date Time Temp Pulse Resp B/P (MAP) Pulse Ox O2 Delivery O2 Flow Rate FiO2 03/25/20 11:23 Nasal Cannula 6.0 03/25/20 10:18 18 03/25/20 09:06 111 123/77 03/25/20 06:00 98.5 92 I&O- Last 24 Hours up to 6 AM 03/25/20 06:00 Intake Total 0 ml Output Total 0 ml Balance 0 ml MO LYON MD Mar 25, 2020 13:48
[2020-03-25] MEDS: methylPREDNISolone INJ 40 MG/1 ML VIAL (J2920) IV SCH (20:19)
[2020-03-25] MEDS: LEVEMIR (INSULIN DETEMIR) 1 UNITS/0.01ML SC SCH (20:37)
[2020-03-25 22:00] VITALS: BP 118/73
[2020-03-26] MEDS: IPRATROPIUM 0.5MG/ALBUTEROL 2.5MG INH SOL UD 3ML (DUONEB)(J7620) NEB SCH ×6 (00:27→20:00)
[2020-03-26] MEDS: methylPREDNISolone INJ 40 MG/1 ML VIAL (J2920) IV SCH ×3 (03:49→20:06)
[2020-03-26 04:27] LABS: ABG BASE EXCESS 18.2 (-2.0-2.0); ABG HCO3 47.4 MEQ/L (22.0-26.0); ABG O2 SATURATION 88.7 % (95.0-99.0); ABG PARTIAL PRESSURE CO2 89.2 mmHg (35.0-45.0); ABG PARTIAL PRESSURE O2 64.2 mmHg (75.0-100.0); ABG TOTAL CO2 50.1 MEQ/L (22.0-29.0); ABG pH (ARTERIAL) 7.343 UNITS (7.350-7.450)
[2020-03-26] MEDS ORDERED: FUROSEMIDE 100MG/10ML VIAL (J1940) IV ONE (04:45)
[2020-03-26] MEDS ORDERED: IPRATROPIUM 0.5MG/ALBUTEROL 2.5MG INH SOL UD 3ML (DUONEB)(J7620) NEB ONE (04:45)
--- NOTE | 2020-03-26 04:46 | REPVR ---
PROCEDURE INFORMATION: Exam: XR Chest, 1 View Exam date and time: 03/26/2020 4:31 AM Age: 60 years old Clinical indication: Shortness of breath; Additional info: Decreased oxygen saturation TECHNIQUE: Imaging protocol: XR of the chest Views: 1 view. COMPARISON: CR PORTABLE CHEST X-RAY 03/24/2020 11:29 PM FINDINGS: Limitations: The patient is significantly rotated. Lungs: There is hyperlucency of the upper lobes and crowding of structures in the lung bases, consistent with emphysema. There is increased opacity in the left lung base. Pleural space: There is a small left pleural effusion, increased in size from the prior exams. Heart/Mediastinum: The heart size and mediastinum are difficult to assess due to rotation. Diaphragm: There is mild elevation of the left diaphragm. Bones/joints: There is fixation hardware in the cervical spine. IMPRESSION: 1. Increased size of left pleural effusion and increased opacity in the left lung base. 2. COPD. Electronically signed by: Alanna Balderas On 03/26/2020 04:46:33 AM
[2020-03-26] MEDS: oxyCODONE 5MG TAB PO PRN ×2 (05:20→12:38)
[2020-03-26] MEDS: LEVOTHYROXINE 25MCG TABLET (0.025MG) PO SCH (05:20)
[2020-03-26 06:00] VITALS: BP 147/91
[2020-03-26 06:24] LABS: HEMATOCRIT 33.1 % (36.0-47.0); HEMOGLOBIN 9.7 g/dl (12.0-15.5); MEAN CORPUSCULAR HGB CONC 29.3 g/dl (32.0-36.5); MEAN CORPUSCULAR VOLUME 92.2 fl (80.0-96.0); PLATELET COUNT, AUTOMATED 321 10^3/uL (150-450); RED BLOOD COUNT 3.59 10^6/uL (4.00-5.40); WHITE BLOOD COUNT 9.5 10^3/uL (4.0-10.0)
[2020-03-26 06:48] LABS: ALBUMIN 3.1 GM/DL (3.2-5.2); ALT/SGPT 25 U/L (12-78); BILIRUBIN,TOTAL 0.3 MG/DL (0.2-1.0); BLOOD UREA NITROGEN 17 MG/DL (7-18); CALCIUM LEVEL 9.2 MG/DL (8.5-10.1); CARBON DIOXIDE LEVEL 43 MEQ/L (21-32); CHLORIDE LEVEL 91 MEQ/L (98-107); CREATININE FOR GFR 0.75 MG/DL (0.55-1.30); GLOMERULAR FILTRATION RATE > 60.0 (>51); GLUCOSE, FASTING 199 MG/DL (70-100); MAGNESIUM LEVEL 1.8 MG/DL (1.8-2.4); POTASSIUM SERUM 4.1 MEQ/L (3.5-5.1); SODIUM LEVEL 143 MEQ/L (136-145); TOTAL PROTEIN 6.8 GM/DL (6.4-8.2)
[2020-03-26] MEDS: ADVAIR HFA 230/21MCG INHALER INH SCH ×2 (07:21→20:13)
[2020-03-26] MEDS: HEPARIN SOD (PORCINE) 5000UNITS/ML VIAL (J1644 PER 1000UNITS) SC SCH ×2 (08:21→20:06)
[2020-03-26] MEDS: GABAPENTIN 300 MG CAP PO SCH ×3 (08:21→20:06)
[2020-03-26] MEDS: HumaLOG INSULIN (NovoLOG) PER UNIT SC SCH ×4 (08:21→20:08)
[2020-03-26] MEDS: DULoxetine 30 MG CAP (CYMBALTA) PO SCH (08:22)
[2020-03-26] MEDS: METOPROLOL TART 50 MG TAB PO SCH ×2 (08:23→20:07)
[2020-03-26] MEDS: OLANZapine 5 MG TAB PO SCH (08:23)
[2020-03-26] MEDS: FUROSEMIDE 40 MG TAB PO SCH (08:23)
[2020-03-26] MEDS: DOCUSATE SODIUM 100 MG CAP PO SCH ×2 (08:23→20:06)
[2020-03-26] MEDS: PARoxetine 20 MG TAB PO SCH (08:24)
[2020-03-26 08:31] LABS: CK-MB VALUE MASS < 1.0 NG/ML (<3.6); CPK CREATINE PHOSPHOKINASE 22 U/L (26-192); MB/CK RELATIVE INDEX 4.55 (< OR =4); TROPONIN I < 0.02 NG/ML (< 0.10)
--- NOTE | 2020-03-26 08:50 | ECGEPIP ---
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 Rule o out prior posterior wall MO. No then slower rate, no change from 03/24/20 Electronically Signed on 03-26-2020 8:49:46 EDT by Sunil Ray
--- NOTE | 2020-03-26 11:14 | REP ---
CHEST, TWO VIEWS: Two views of the chest are performed. Comparison is made with multiple prior exams. This includes a portable chest radiograph earlier today. There appears to be mild patchy bibasilar atelectasis/infiltrate. The heart and mediastinum are unchanged. There is mild chronic biapical pleural thickening. There are mild degenerative change of the spine. There is metallic internal fixation of the cervical spine again noted. IMPRESSION: Mild bibasilar atelectasis/infiltrate. This appears fairly similar to the prior recent studies. Electronically Signed by Yogi Jones MD 03/26/2020 07:42 P
--- NOTE | 2020-03-26 12:48 | IPNPDOC ---
Text Note Date of Service The patient was seen on 03/26/20. NOTE Subjective: Patient is a 60-year-old female with a PMHx COPD, Chronic hypoxic and hypercarbic respiratory failure, HTN, A. fib, DLP, Hypothyroidism, Chronic neck pain, Migraines, Essential tremors, Depression, GERD who presents to the ER with complaints of shortness of breath. Patient was admitted to the hospital service for suspected COPD exacerbation. On the morning of 03/26 4 AM patient began to express shortness of breath. Imaging was acquired for possibility of fluid overload. Patient was given a dose of furosemide 80 mg IV. Since that point. Her breathing has improved significantly. Patient was seen and examined at the bedside. Currently, patient denies any chest pain or palpitations. Denies any significant cough. Reports some shortness of breath, reports that it's better than point arrival. Denies any nausea, vomiting, abdominal pain, diarrhea, or urinary discomfort. Objective: Vitals (See below) General: Lying in bed, appears comfortable, AAOx3 HEENT: NC, AT CVS: +S1S2 Lungs: Again, air entry is fair bilaterally. Auscultation does reveal very mild wheezing, no rhonchi or crackles Abdomen: Remains soft, without any distention or tenderness Extremities: Lower extremities do reveal 1+ pitting edema bilaterally, - Calf tenderness Assessment and plan: Shortness of breath - likely 2/2 acute exacerbation of COPD, possibly 2/2 decompensated diastolic CHF - Continues to experience improvement of her breathing - Hemodynamically stable and afebrile - Continues with supplemental oxygen, slightly higher than baseline - Improved aeration wheezing still persist - ECHO 02/04/2020: Evidence of diastolic dysfunction, grade 1 - CXR 03/25: Stable chronic findings. No evidence of acute infiltrate. - CXR 03/26: Mild bibasilar atelectasis/infiltrate. This appears fairly similar to the prior recent studies. 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 Patient did have an elevated PCO2 at 83 - However, currently her breathing has done significantly better - Currently is requiring supplemental oxygen, slightly higher than her baseline of 4 L HTN - BP well controlled - c/w Metoprolol A. fib - Questionable history - Patient was discharged on 03/11 with A. fib and was prescribed Eliquis - However review of EKGs have revealed sinus tachycardia - Currently not on full anticoagulation DLP - c/w Atorvastatin IDDM2 with Neuropathy - Will discontinue metformin - c/w ISS and Levemir - c/w Gabapentin Hypothyroidism - c/w Levothyroxine Chronic neck pain / Migraines - c/w pain regimen as ordered; based on outpatient prescription Depression - c/w Olanzapine, Duloxetine and Paroxetine DVT prophylaxis - c/w Heparin VS,Fishbone, I+O VS, Fishbone, I+O Laboratory Tests 03/26/20 05:33 Vital Signs Date Time Temp Pulse Resp B/P (MAP) Pulse Ox O2 Delivery O2 Flow Rate FiO2 03/26/20 12:38 18 03/26/20 08:23 120 122/58 03/26/20 06:00 97.2 97 Venturi Mask 15.0 50 I&O- Last 24 Hours up to 6 AM 03/26/20 06:00 Intake Total 1695 ml Output Total 2650 ml Balance -955 ml MO LYON MD Mar 26, 2020 12:48
[2020-03-26 14:00] VITALS: BP 140/80
[2020-03-26] MEDS: CLOTRIMAZOLE 1% TOPICAL CREAM 30GM TOP SCH ×2 (16:42→20:08)
[2020-03-26] MEDS: ATORVASTATIN 20 MG TAB PO SCH (20:06)
[2020-03-26] MEDS: LEVEMIR (INSULIN DETEMIR) 1 UNITS/0.01ML SC SCH (20:08)
[2020-03-26 22:00] VITALS: BP 143/88
[2020-03-27] MEDS: IPRATROPIUM 0.5MG/ALBUTEROL 2.5MG INH SOL UD 3ML (DUONEB)(J7620) NEB SCH ×4 (00:58→11:14)
[2020-03-27] MEDS: methylPREDNISolone INJ 40 MG/1 ML VIAL (J2920) IV SCH (04:18)
[2020-03-27 06:00] VITALS: BP 127/83
[2020-03-27] MEDS: LEVOTHYROXINE 25MCG TABLET (0.025MG) PO SCH (06:08)
[2020-03-27] MEDS: ADVAIR HFA 230/21MCG INHALER INH SCH (07:11)
[2020-03-27] MEDS: HumaLOG INSULIN (NovoLOG) PER UNIT SC SCH ×2 (07:27→11:45)
[2020-03-27] MEDS: oxyCODONE 5MG TAB PO PRN (07:37)
[2020-03-27 07:39] LABS: BASO % 0.2 % (0.0-1.0); HEMATOCRIT 33.9 % (36.0-47.0); HEMOGLOBIN 9.9 g/dl (12.0-15.5); LYMPH # 0.8 10^3/uL (1.5-5.0); LYMPH % 9.4 % (24.0-44.0); MEAN CORPUSCULAR HEMOGLOBIN 26.6 pg (27.0-33.0); MEAN CORPUSCULAR HGB CONC 29.2 g/dl (32.0-36.5); MEAN CORPUSCULAR VOLUME 91.1 fl (80.0-96.0); MONO # 0.5 10^3/uL (0.0-0.8); MONO % 6.2 % (0.0-5.0); NEUTROPHILS # 7.2 10^3/uL (1.5-8.5); NEUTROPHILS % 81.9 % (36.0-66.0); PLATELET COUNT, AUTOMATED 307 10^3/uL (150-450); RED BLOOD COUNT 3.72 10^6/uL (4.00-5.40); WHITE BLOOD COUNT 8.7 10^3/uL (4.0-10.0)
[2020-03-27 08:19] LABS: BLOOD UREA NITROGEN 25 MG/DL (7-18); CALCIUM LEVEL 9.4 MG/DL (8.5-10.1); CARBON DIOXIDE LEVEL 48 MEQ/L (21-32); CHLORIDE LEVEL 90 MEQ/L (98-107); CREATININE FOR GFR 0.71 MG/DL (0.55-1.30); GLOMERULAR FILTRATION RATE > 60.0 (>51); GLUCOSE, FASTING 175 MG/DL (70-100); MAGNESIUM LEVEL 2.2 MG/DL (1.8-2.4); POTASSIUM SERUM 4.1 MEQ/L (3.5-5.1); SODIUM LEVEL 139 MEQ/L (136-145)
[2020-03-27] MEDS: DULoxetine 30 MG CAP (CYMBALTA) PO SCH (08:20)
[2020-03-27] MEDS: GABAPENTIN 300 MG CAP PO SCH (08:20)
[2020-03-27] MEDS: CLOTRIMAZOLE 1% TOPICAL CREAM 30GM TOP SCH (08:20)
[2020-03-27] MEDS: PARoxetine 20 MG TAB PO SCH (08:21)
[2020-03-27] MEDS: HEPARIN SOD (PORCINE) 5000UNITS/ML VIAL (J1644 PER 1000UNITS) SC SCH (08:21)
[2020-03-27] MEDS: FUROSEMIDE 40 MG TAB PO SCH (08:21)
[2020-03-27] MEDS: OLANZapine 5 MG TAB PO SCH (08:21)
[2020-03-27] MEDS: DOCUSATE SODIUM 100 MG CAP PO SCH (08:21)
[2020-03-27 08:23] VITALS: BP 126/78
[2020-03-27] MEDS: METOPROLOL TART 50 MG TAB PO SCH (08:23)
[2020-03-27] MEDS ORDERED: PRED10TA2 PO ×2 (10:28)
[2020-03-27] MEDS ORDERED: CLOTR1CR TOP (10:28)
--- NOTE | 2020-03-27 11:59 | DS.PDOC ---
Discharge Summary General Date of Admission Mar 25, 2020 at 01:48 Date of Discharge 03/27/2020 Discharge Summary PROCEDURES PERFORMED DURING STAY: [None]. 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 fib after review of history DLP IDDM2 with Neuropathy Hypothyroidism Chronic neck pain / Migraines Depression DVT prophylaxis COMPLICATIONS/CHIEF COMPLAINT: Shortness of breath HISTORY OF PRESENT ILLNESS: Patient is a 60-year-old female with a PMHx COPD, Chronic hypoxic and hypercarbic respiratory failure, HTN, A. fib, DLP, Hypothyroidism, Chronic neck pain, Migraines, Essential tremors, Depression, GERD who presents to the ER with complaints of shortness of breath. Patient was admitted to the hospital service for suspected COPD exacerbation. HOSPITAL COURSE: Shortness of breath - likely 2/2 acute exacerbation of COPD, possibly 2/2 decompensated diastolic CHF - Continues to experience improvement of her breathing - Hemodynamically stable and afebrile - Continues with supplemental oxygen, slightly higher than baseline - Improved aeration wheezing still persist - ECHO 02/04/2020: Evidence of diastolic dysfunction, grade 1 - CXR 03/25: Stable chronic findings. No evidence of acute infiltrate. - CXR 03/26: Mild bibasilar atelectasis/infiltrate. This appears fairly similar to the prior recent studies. 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 Patient did have an elevated PCO2 at 83 - However, currently her breathing has done significantly better - Currently is requiring supplemental oxygen, slightly higher than her baseline of 4 L HTN - BP well controlled - c/w Metoprolol Tachycardia history - unlikely 2/2 A. fib - Questionable history - Patient was discharged on 03/11 with A. fib and was prescribed Eliquis - However review of EKGs have revealed sinus tachycardia - Currently not on full anticoagulation DLP - c/w Atorvastatin IDDM2 with Neuropathy - Will resume Metformin on discharge - c/w ISS and Levemir - c/w Gabapentin Hypothyroidism - c/w Levothyroxine Chronic neck pain / Migraines - c/w pain regimen as ordered; based on outpatient prescription Depression - c/w Olanzapine, Duloxetine and Paroxetine DVT prophylaxis - c/w Heparin DISCHARGE MEDICATIONS: Please see below. ALLERGIES: Please see below. PHYSICAL EXAMINATION ON DISCHARGE: Vitals (See below) General: Lying in bed, appears comfortable, AAOx3 HEENT: NC, AT CVS: +S1S2 Lungs: Improved aeration bilaterally without evidence of rhonchi, or crackles, or wheezing Abdomen: Remains soft without any distention or tenderness Extremities: Trace surgery edema, - Calf tenderness LABORATORY DATA: Please see below. ACTIVITY: [As tolerated]. DISCHARGE PLAN: Follow-up with primary care provider, dermatology and pulmonology within 7 days Remain compliant with treatment plan and medications Return to the ER if you experience any problems DISPOSITION: Home with services DISCHARGE CONDITION: [Stable]. TIME SPENT ON DISCHARGE: 35 minutes. Vital Signs/I&Os Vital Signs Date Time Temp Pulse Resp B/P (MAP) Pulse Ox O2 Delivery O2 Flow Rate FiO2 03/27/20 09:00 4.0 03/27/20 08:23 115 126/78 03/27/20 08:07 18 03/27/20 06:00 96.8 96 Nasal Cannula 03/26/20 06:00 50 I&O- Last 24 Hours up to 6 AM 03/27/20 05:59 Intake Total 1215 ml Output Total 3575 ml Balance -2360 ml Laboratory Data Labs 24H Laboratory Tests 2 03/26/20 16:52: Bedside Glucose (Misc Panel) 240H 03/26/20 19:58: Bedside Glucose (Misc Panel) 275H 03/27/20 05:53: Bedside Glucose (Misc Panel) 184H 03/27/20 07:27: Immature Granulocyte % (Auto) 2.3, Neutrophils (%) (Auto) 81.9H, Lymphocytes (%) (Auto) 9.4L, Monocytes (%) (Auto) 6.2H, Eosinophils (%) (Auto) 0.0, Basophils (%) (Auto) 0.2, Neutrophils # (Auto) 7.2, Lymphocytes # (Auto) 0.8L, Monocytes # (Auto) 0.5, Eosinophils # (Auto) 0.0, Basophils # (Auto) 0.0, Nucleated Red Blood Cells % (auto) 0.6H, Anion Gap 1L, Glomerular Filtration Rate > 60.0, Calcium Level 9.4, Magnesium Level 2.2 03/27/20 11:23: Bedside Glucose (Misc Panel) 165H CBC/BMP Laboratory Tests 03/27/20 07:27 FSBS Laboratory Tests Test 03/26/20 16:52 03/26/20 19:58 03/27/20 05:53 03/27/20 11:23 Range/Units Bedside Glucose (Misc Panel) 240 275 184 165 70-105 MG/DL Discharge Medications Scheduled Atorvastatin Calcium (Atorvastatin Calcium) 20 Mg Tab, 20 MG PO QHS, (Reported) Clotrimazole (Clotrimazole) 30 Gm Cream..g., 1 DOSE TOP TID apply to affected area of feet bilaterally Dexlansoprazole (Dexilant) 60 Mg Cap, 60 MG PO DAILY, (Reported) Duloxetine Hcl (Duloxetine HCl) 60 Mg Capsule.dr, 60 MG PO DAILY, (Reported) Furosemide (Furosemide) 40 Mg Tablet, 40 MG PO DAILY, (Reported) Gabapentin (Gabapentin) 600 Mg Tab, 600 MG PO TID, (Reported) Insulin Detemir (Levemir) 100 Unit/1 Ml Vial, 20 UNITS SC QHS, (Reported) Levothyroxine Sodium (Levothyroxine Sodium) 25 Mcg Tablet, 25 MCG PO DAILY, (Reported) Metformin HCl (Metformin HCl) 500 Mg Tablet, 1,000 MG PO BIDWM, (Reported) Metoprolol Tartrate (Metoprolol Tartrate) 50 Mg Tablet, 50 MG PO BID, (Reported) Olanzapine (Olanzapine) 5 Mg Tablet, 5 MG PO DAILY, (Reported) Paroxetine HCl (Paroxetine HCl) 40 Mg Tab, 40 MG PO DAILY, (Reported) Plecanatide (Trulance) 3 Mg Tablet, 3 MG PO QHS, (Reported) Prednisone (Prednisone) 10 Mg Tablet, 10 MG PO DAILY Resume after completion of steroid taper Prednisone (Prednisone) 10 Mg Tablet, 10 MG PO TAPER Take 4 tabs daily x 3 days, then 3 tabs daily x 3 days, then 2 tabs daily x 3 days, then 1 tab daily x 3 days and stop Salmeterol/Fluticasone (Advair 500-50 Diskus) 1 Each Blst.w.dev, 1 PUFF INH BID, (Reported) Umeclidinium [place] (Incruse Ellipta) 62.5 Mcg/Inh Inh, 1 PUFF INH DAILY, (Reported) Scheduled PRN Albuterol Sulf (Albuterol Sulfate) 2.5 Mg/3 Ml Vial.neb, 2.5 MG INH Q4H PRN for SHORTNESS OF BREATH, (Reported) Albuterol Sulfate (Ventolin Hfa) 18 Gm Hfa.aer.ad, 2 PUFF INH Q4H PRN for SHORTNESS OF BREATH, (Reported) Oxycodone HCl (Oxycodone HCl) 5 Mg Tab, 5 MG PO TID PRN for PAIN, (Reported) Allergies Coded Allergies: No Known Allergies (Verified Allergy, Unknown, 12/09/19) MO LYON MD Mar 27, 2020 11:59
== END 2020-03-27 12:23 | disposition home health service (06) | DRG 190 ==
LOC: M ED 22:33 → M ED INP 03-25 01:48 → ENRESERV 03-25 02:37 → M MSPAV 03-25 02:57
PROVIDERS: ADMIT Internal Medicine; ATTEND Internal Medicine
DX: J44.1 Chronic obstructive pulmonary disease with (acute) exacerbation (principal); I50.33 Acute on chronic diastolic (congestive) heart failure; J96.11 Chronic respiratory failure with hypoxia; J96.12 Chronic respiratory failure with hypercapnia; I11.0 Hypertensive heart disease with heart failure; E03.9 Hypothyroidism, unspecified; F32.9 Major depressive disorder, single episode, unspecified; M54.2 Cervicalgia; G43.909 Migraine, unspecified, not intractable, without status migrainosus; E11.40 Type 2 diabetes mellitus with diabetic neuropathy, unspecified; E83.42 Hypomagnesemia; B35.3 Tinea pedis; L95.0 Livedoid vasculitis; K21.9 Gastro-esophageal reflux disease without esophagitis; G25.0 Essential tremor; Z79.899 Other long term (current) drug therapy

== ENCOUNTER → 2020-04-17 | Outpatient (CLI) | payer MEDICARE, MEDICAID ==
[~2020-04-17] MED LIST changes: +CLOT1CRE27 TOP; +CLOTR1CR TOP; +IPRA0.00 NEB
--- NOTE | 2020-04-22 04:49 | ECWPNPC ---
PATIENT NAME: ARTHUR ALSTON : 1960 GENDER: FEMALE VISIT DATE: 04/17/2020 DISCHARGE DATE: 04/17/20 1012 VISIT LOCKED DATE TIME: PHYSICIAN: HARSH RICHTER RESOURCE: HARSH RICHTER REASON FOR APPOINTMENT 1. MED MGMNT HISTORY OF PRESENT ILLNESS GENERAL: -. FALL RISK SCREENING: SCREENING :NO FALLS REPORTED IN THE LAST YEAR PAIN SCREENING: PATIENT HAS A COMPLAINT OF ACUTE OR CHRONIC PAIN :YES 04/17/20 INTENSITY OF PAIN (SCALE OF 1 TO 10):6 WHAT DOES YOUR PAIN FEEL LIKE:BURNING, CONTINOUS, INTERMITTENT PAIN IS INCREASED BY: ACTIVITY PAIN IS DECREASED BY: MEDS, REST NURSING NOTE: -. PAIN CENTER INTAKE QUESTIONS: DO YOU HAVE A HISTORY OF MRSA? :NO DO YOU TAKE A BLOOD THINNERS? :YES ELIQUIS DO YOU HAVE ANY BLEEDING DISORDERS? :NO ANY NEW NUMBNESS OR WEAKNESS IN YOUR LEGS OR ARMS? :YES SHOULDERS ARE NUMB ANY PACEMAKER,DEFIBRILLATOR, OR DORSAL COLUMN STIMULATOR? :NO DO YOU HAVE ANY RASHES OR OPEN SORES? :NO ARE YOU ALLERGIC TO IV DYE? :NO ARE YOU DIABETIC? :YES ANY NEW PROBLEMS WITH YOUR MEDICATIONS? :NO HAVE YOU RECEIVED A VACCINE IN THE PAST 30 DAYS? :NO DO YOU PLAN TO RECEIVE A VACCINE IN THE NEXT 21 DAYS? :NO DO YOU NEED ANY PRESCRIPTION? :NO DO YOU TAKE ANY IMMUNOSUPPRESSIVE MEDICATIONS? :NO IS THERE A CHANCE YOU COULD BE ? :NO ARE YOU BREAST FEEDING? :NO HISTORY OF PRESENT ILLNESS: HERE FOR FOLLOW-UP AND MEDICINE MANAGEMENT OF CHRONIC NECK PAIN WITH LEFT ARM RADICULAR SYMPTOMS. DESCRIBES PAIN ACHING, BURNING AND THROBBING. RATING PAIN LEVEL A 6/10 VAS. PAIN IS AGGRAVATED BY USE OF LEFT ARM OR ACTIVITIES. PAIN IS RELIEVED SOMEWHAT AT REST AND WITH MEDICATIONS. CURRENTLY USING OXYCODONE 5 MG, MAX DAILY DOSE OF 2 PER DAY AND GABAPENTIN 600 MG 3 TIMES A DAY. FINDS MEDICATION SOMEWHAT HELPFUL AT REDUCING PAIN AND KEEPING HER SOMEWHAT FUNCTIONAL. DENIES SIDE EFFECTS. PAIN THE PATIENT DESCRIBES THE PAIN... CURRENT MEDICATIONS TAKING PREDNISONE 10 MG TABLET 1 TABLET ORALLY TAKE 4 TABS DAILY X 3 DAYS, 3 TABS DAILY X 3 DAYS, 2 TABS DAILY X 3 DAYS, 1 TAB DAILY X3 DAYS AND STOP TAKING ADVAIR DISKUS 500-50 MCG/DOSE MISCELLANEOUS 1 PUFF INHALATION TWICE A DAY TAKING APIXABAN 5 MG TABLET 1 TAB ORALLY TWICE DAILY TAKING DEXILANT 60 MG CAPSULE DELAYED RELEASE 1 CAPSULE ORALLY ONCE A DAY TAKING DULOXETINE HCL 60 MG CAPSULE DELAYED RELEASE PARTICLES 1 CAPSULE ORALLY ONCE A DAY TAKING INCRUSE ELLIPTA 62.5 MCG/INH AEROSOL POWDER BREATH ACTIVATED 1 PUFF INHALATION ONCE A DAY TAKING METFORMIN HCL ER 500 MG TABLET EXTENDED RELEASE 24 HOUR 2 TABLETS ORALLY TWICE DAILY WITH MEALS, NOTES: [facility] D/C 01/27/20= QD TAKING OLANZAPINE 5 MG TABLET 1 TABLET ORALLY ONCE A DAY TAKING PAROXETINE HCL 40 MG TABLET TAKE ONE TABLET BY MOUTH EVERY MORNING TAKING VENTOLIN HFA 90 MCG/ACT AEROSOL SOLUTION 2 PUFFS NEEDED INHALATION EVERY 4 HOURS FOR SOB TAKING LIPITOR 20 MG TABLET 1 TABLET ORALLY ONCE A DAY TAKING METOPROLOL TARTRATE 50 MG TABLET 1 TABLET WITH FOOD ORALLY TWICE A DAY TAKING GABAPENTIN 600 MG TABLET 1 TABLET ORALLY THREE TIMES A DAY TAKING ALBUTEROL SULFATE (2.5 MG/3ML) 0.083% NEBULIZATION SOLUTION 3 ML NEEDED INHALATION EVERY 4 HOURS NEEDED FOR SOB, NOTES: NOT ON [facility] D/C TAKING AMMONIUM LACTATE 12 % CREAM 1 APPLICATION EXTERNALLY TO FEET TWICE DAILY NEEDED FOR DRY SKIN, NOTES: NOT ON [facility] D/C TAKING HOSPITAL BED DIRECTED J44.99 TAKING LANCETS MISC - MISCELLANEOUS 1 LANCET SUBCUTANEOUSLY DAILY, E11.9 TAKING OXYGEN _ 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 PATIENT ON 4L OXY-GO-POC TAKING WHEELCHAIR - MISCELLANEOUS DIRECTED _ J96.11 TAKING SCOOTER CHAIR DIRECTED R26.81 DAILY TAKING SYNTHROID 25 MCG TABLET 1 TABLET ON AN EMPTY STOMACH IN THE MORNING ORALLY ONCE A DAY TAKING BD INSULIN SYRINGE U/F 30G X 1/2" 1 ML DIRECTED AT BEDTIME DIRECTED TAKING BLOOD GLUCOSE TEST STRIP 1 STRIP, FREESTYLE LIGHT SUBCUTANEOUSLY DAILY, E11.9 TAKING FREESTYLE LITE TEST - STRIP DIRECTED IN VITRO DAILY E11.9 TAKING FUROSEMIDE 40 MG TABLET 1 TABLET ORAL ONCE A DAY TAKING IPRATROPIUM-ALBUTEROL 0.5-2.5 (3) MG/3ML SOLUTION 3 ML NEEDED INHALATION EVERY 6 HRS TAKING LEVEMIR 100 UNIT/ML SOLUTION INJECT 20 UNITS UNDER THE SKIN AT BEDTIME TAKING ELIQUIS 5 MG TAKE ONE TABLET BY MOUTH TWICE A DAY TAKING TRULANCE 3 MG TABLET 1 TABLET ORALLY ONCE A DAY TAKING GLIPIZIDE 5 MG TABLET TAKE ONE TABLET BY MOUTH EVERY DAY AT 7:30AM TAKING OXYCODONE HCL 5 MG TABLET 1 TABLET ORALLY BIDMDD2, NOTES: CHANGED TO BID TAKING METOPROLOL TARTRATE 50 MG TAKE ONE TABLET BY MOUTH TWICE A DAY WITH FOOD MEDICATION LIST REVIEWED AND RECONCILED WITH THE PATIENT PAST MEDICAL HISTORY CHRONIC RESP FAILURE, COPD CHRONIC OBSTRUCTIVE BRONCHITIS, EMPHYSEMA, DR TREJO CHRONIC O2 3 LPM CHRONIC NECK PAIN - PAIN CLINIC MDD HYPERLIPIDEMIA HYPERTENSION, 07/05 EKG NSR GERD STRESS URINARY INCONTINENCE H/O ABN MAMMO 07/06, BX 09/05 NEG, AGUERO DUE FOR REPEAT MAMMO EMANUEL DEP, QUIT APRIL 201801/2020 ECHO NL LV SIZE AND FUNCTION, GRADE 1 DIASTOLIC FUNCTION, RV DOESN'T APPEAR ENLARGED BUT POORLY VISUALIZED, NO SIGN VALVULAR DIS, AT LEAST MILDLY ELEVATED CVP AND MILD PULM HTN PINEAL CYST- NEURO, MRI 05/08 WITHOUT CHANGE. 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 SURGICAL HISTORY CERVICAL SPINE FUSION - WITH RODS AND BONE GRAFT. 1997 LEFT TOTAL KNEE REPLACEMENT- NCOG 07/05 TUBAL LIGATION COLONOSCOPY 08/05 POOR PREP, REPEAT 10/05, SUBOPTIMAL PREP, REPEAT IN 1 YEAR, NBIH 08/05, 10/05 UGI/ ENDOSCOPIC REMOVAL OF FOREIGN OBJECT - PT CHOKED ON A PIECE OF STEAK AND HAD IT REMOVED UNDER ANESTHESIA 08/13/19 FAMILY HISTORY FATHER: , DIAGNOSED WITH OTHER SPECIFIED CONDITIONS INFLUENCING HEALTH STATUS MOTHER: ALIVE, OTHER MALIGNANT NEOPLASM OF UNSPECIFIED SITE PATERNAL GRAND FATHER: PATERNAL GRAND MOTHER: MATERNAL GRAND FATHER: MATERNAL GRAND MOTHER: 2 BROTHER(S) , 1 SISTER(S) - HEALTHY. 2 SON(S) , 1 DAUGHTER(S) . FATHER: CIRROHSIS OF THE LIVER\\\\NMOTHER: COLON CA, HAS A COLOSTOMY BAG\\\\NBROTHER: HTN\\\\NSON: AT 23 \\\\N. SOCIAL HISTORY GENERAL: TOBACCO USE ARE YOU A:FORMER SMOKER HAS QUIT > 1 YEAR, REMAINS ON CHANTIX HOW LONG HAS IT BEEN SINCE YOU LAST SMOKED?1-5 YEARS QUIT APRIL 2018 LATEX QUESTIONNAIRE LATEX ALLERGY : HAVE YOU EVER DEVELOPED ANY TYPE OF REACTION AFTER HANDLING LATEX PRODUCTS SUCH RUBBER GLOVES, CONDOMS, DIAPHRAGMS, BALLOONS, SOCKS, OR UNDERWEAR?NO LATEX ALLERGY : HAVE YOU EVER DEVELOPED ANY TYPE OF REACTION DURING OR AFTER DENTAL APPOINTMENT, VAGINAL/RECTAL EXAMINATION, SURGICAL PROCEDURE, OR ANY OTHER EXPOSURE?NO DATE ASKED : 01/28/2019 LATEX RISK : HAVE YOU EVER HAD ANY DIFFICULTY BREATHING OR HIVES AFTER EATING OR HANDLING ANY FRUITS, OR VEGETABLES; SUCH KIWI, BANANAS, STONE FRUITS, OR CHESTNUTSNO LATEX RISK : DO YOU HAVE A PREVIOUS PERSONAL HISTORY OF MORE THAN NINE SURGERIES, SPINA BIFIDA, OR REPEATED CATHERIZATIONS? NO LATEX RISK : ARE YOU FREQUENTLY EXPOSED TO LATEX PRODUCTS IN YOUR OCCUPATION?NO LUNG CANCER SCREENING SMOKING STATUS:FORMER SMOKER BMI CARE GOAL FOLLOW-UP ABOVE NORMAL BMI FOLLOW-UPDIETARY MANAGEMENT EDUCATION, GUIDANCE, AND COUNSELING ALCOHOL SCREENING DID YOU HAVE A DRINK CONTAINING ALCOHOL IN THE PAST YEAR?YES HOW OFTEN DID YOU HAVE SIX OR MORE DRINKS ON ONE OCCASION IN THE PAST YEAR?NEVER (0 POINTS) HOW MANY DRINKS DID YOU HAVE ON A TYPICAL DAY WHEN YOU WERE DRINKING IN THE PAST YEAR?1 OR 2 (0 POINTS) HOW OFTEN DID YOU HAVE A DRINK CONTAINING ALCOHOL IN THE PAST YEAR?MONTHLY OR LESS (1 POINT) POINTS1 INTERPRETATIONNEGATIVE RECREATIONAL DRUG USE DRUG USE?NO CAFFEINE CAFFEINE USE?YES COFFEE DAILY SEXUAL HX HAD SEX IN THE LAST 12 MONTHS (VAGINAL, ORAL, OR ANAL)?NO HIV / HEP-C SCREENING HIV TEST OFFERED TO PATIENT:YES DATE OFFERED:06/29/2017 TEST ACCEPTED:NO HEP-C TEST OFFERED TO PATIENT:YES DATE OFFERED:06/29/2017 REASON:PATIENT DECLINED TEST ACCEPTED:NO REASON:PATIENT DECLINED CHRISTIAN [id number] NONE LANGUAGE LANGUAGES SPOKEN:[place] CITIZ[place] EDUCATION LEVEL OF EDUCATION:FINISHED HIGH SCHOOL LEARNING 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 OCCUPATION: DISABLED. DIET: REGULAR. EXERCISE: NO REGULAR EXERCISE. MARITAL STATUS: . NEW PATIENT PAIN DIARY PATIENT DESCRIBES PAIN :ACHING, BURNING, THROBBING FROM 0-10, WHAT LEVEL IS YOUR PAIN TODAY?7 PRECIPITATING FACTORS ACTIVITIES ALLEVIATING FACTORS MEDS, RESTING IMPACT ON FUNCTION YES PAIN CLINIC PFS, CLERGY, PUBLIC HEALTH REFERRALS PFS REFERRAL NEEDED?NO CLERGY REFERRAL NEEDED?NO PUBLIC HEALTH REFERRAL NEEDED?NO WAS THE PROVIDER NOTIFIED OF ANY PERTINENT INFO?NO HAS THE PATIENT BEEN EDUCATED REGARDING HIS/HER PLAN OF CARE?YES HAS THE PATIENT BEEN EDUCATED REGARDING PAIN, THE RISK FOR PAIN, THE IMPORTANCE OF EFFECTIVE PAIN MANAGEMENT, AND THE PAIN ASSESSMENT PROCESS?YES ADVANCE DIRECTIVE ADVANCE DIRECTIVE DISCUSSED WITH PATIENT:YES PT HAS NO ADVANCED DIRECTIVES, DECLINES INFORMATION OR ASSISTANCE AT THIS TIME 12/25/2017 0900 REVIEWED LAS03/27/18 0902 REVIEWED BVREVIEWED WITH PT 06/27/2018 0930 LASREVIEWED WITH PT 10/30/18 1445 LAS. HOSPITALIZATION/MAJOR DIAGNOSTIC PROCEDURE L KNEE REPLACEMENT 07/05 VAGINAL DELIVERIES PNEUMONIA CERVICAL SPINE FUSION 1997 ATYPICAL CP 08/02 ACUTE RESP FAILURE 03/03 [facility]- COPD, CAP, PLEURISY 10/2018 A-FIB 12/2019 A-FIB 01/2020 REVIEW OF SYSTEMS CONSTITUTIONAL: ANY RECENT FEVER NO . CHILLS NO . WEIGHT CHANGE OF UNKNOWN REASONS NO . GASTROENTEROLOGY: NEW UNEXPLAINABLE CHANGES IN BOWEL CONTROL NO . CONSTIPATION NO . GENITOURINARY: ANY NEW CHANGE IN BLADDER CONTROL? NO . NEUROLOGY: NEW ONSET DIZZINESS OR NEUROLOGICAL CHANGES NOT MENTIONED NO . NEW NUMBNESS OR PAIN PATTERNS NOT MENTIONED AND PERTINENT TO TODAY'S VISIT NO . CARDIOLOGY: NEW CHEST PRESSURE NO . NEW CHEST PAIN NO . RESPIRATORY: UNEXPLAINABLE COUGH NO . NEW SHORTNESS OF BREATH NO . VITAL SIGNS WT 205.2 LBS, HT 64", BMI 35.22 INDEX, BP 103/60 MM HG, HR 99 /MIN, RR 20 /MIN, TEMP 96.6 F, OXYGEN SAT % 88%, SAFE IN ENV? (Y/N) Y, NA INITIALS MO 09:53, REVIEWED BY: EMPT HAS COPD, PT ON 4L NC. EXAMINATION GENERAL EXAMINATION: GENERAL AWAKE,ALERT ,PLEASANT . PSYCH AFFECT NORMAL . LUNGS: LUNG ROCK ARE CLEAR TO AUSCULTATION BILATERALLY. GOOD MOVEMENT OF AIR . HEART: S1, S2 IN A REGULAR RATE AND RHYTHM. NO SIGNIFICANT MURMURS, RUBS OR GALLOPS NOTED . ASSESSMENTS CERVICAL DISC DISORDER OF CERVICOTHORACIC REGION - M50.93 (PRIMARY) TREATMENT CERVICAL DISC DISORDER OF CERVICOTHORACIC REGION CONTINUE GABAPENTIN TABLET, 600 MG, 1 TABLET, ORALLY, THREE TIMES A DAY CONTINUE OXYCODONE HCL TABLET, 5 MG, 1 TABLET, ORALLY, BIDMDD2, NOTES: CHANGED TO BID NOTES: ISTOP REGISTRY REVIEWED AND DEMONSTRATES COMPLLIANCE.. RECENT URINE TOXICOLOGY REVIEWED. NO UNAUTHORIZED MEDICATIONS. NO ILLICIT SUBSTANCES AND PRESCRIBED MEDICATIONS WERE PRESENT. PROCEDURE CODES FA211 ESTABILISHED PATIENT [facility] FACILITY CHARGE DISPOSITION & COMMUNICATION FOLLOW UP 3 MONTHS (REASON: MED MANAGEMENT) ELECTRONICALLY SIGNED BY ALLYSON ONEIL ON 04/21/2020 AT 02:48 PM EDT DISCLAIMER : THIS IS A VISIT SUMMARY EXTRACTED FROM THE [employer] CHART. IT IS NOT A COPY OF THE [employer] PROGRESS NOTE. ELVIA
== END ==
LOC: M PAIN 09:30
PROVIDERS: ATTEND Nurse Practitioner Family
DX: M50.93 Cervical disc disorder, unspecified, cervicothoracic region (principal); Z79.891 Long term (current) use of opiate analgesic; Z79.899 Other long term (current) drug therapy; Z87.891 Personal history of nicotine dependence

== ENCOUNTER 2020-04-25 00:16 | Inpatient (IN) | payer MEDICARE, MEDICAID ==
[2020-04-24] MEDS: LEVEMIR (INSULIN DETEMIR) 1 UNITS/0.01ML SC SCH (21:00)
[2020-04-25] VITALS (7 sets, daily range): BP systolic 126–152; BP diastolic 62–86; O2SAT 93–94
[~2020-04-25] VITALS: Ht 167.6 cm; Wt 95.2 kg
[~2020-04-25 00:16] MED LIST changes: -CLOT1CRE27 TOP; -IPRA0.00 NEB
[2020-04-25] MEDS ORDERED: GLIP5TAB8 PO (00:38)
[2020-04-25] MEDS ORDERED: ELIQ5TAB PO (00:38)
[2020-04-25] MEDS ORDERED: dexameTHASONE 20MG/5ML VIAL (J1100 PER 1MG) IV ONE (02:00)
[2020-04-25] MEDS: IPRATROPIUM 0.5MG/ALBUTEROL 2.5MG INH SOL UD 3ML (DUONEB) NEB SCH ×6 (02:05→19:27)
[2020-04-25 02:10] LABS: BASO % 0.3 % (0.0-1.0); EOS # 0.1 10^3/uL (0.0-0.5); EOS % 1.2 % (0.0-3.0); HEMATOCRIT 34.4 % (36.0-47.0); HEMOGLOBIN 9.7 g/dl (12.0-15.5); LYMPH # 1.2 10^3/uL (1.5-5.0); LYMPH % 10.6 % (24.0-44.0); MEAN CORPUSCULAR HEMOGLOBIN 25.6 pg (27.0-33.0); MEAN CORPUSCULAR HGB CONC 28.2 g/dl (32.0-36.5); MEAN CORPUSCULAR VOLUME 90.8 fl (80.0-96.0); MONO # 0.5 10^3/uL (0.0-0.8); MONO % 4.1 % (0.0-5.0); NEUTROPHILS % 82.6 % (36.0-66.0); PLATELET COUNT, AUTOMATED 289 10^3/uL (150-450); RED BLOOD COUNT 3.79 10^6/uL (4.00-5.40); WHITE BLOOD COUNT 10.9 10^3/uL (4.0-10.0)
[2020-04-25] MEDS ORDERED: OXYC-517 PO (02:41)
[2020-04-25] MEDS ORDERED: CLOT1CRE27 TOP (02:41)
[2020-04-25] MEDS ORDERED: PRED10TA2 PO (02:41)
[2020-04-25] MEDS ORDERED: ADVA230A INH (02:42)
[2020-04-25 02:45] LABS: BLOOD UREA NITROGEN 17 MG/DL (7-18); CALCIUM LEVEL 8.5 MG/DL (8.5-10.1); CARBON DIOXIDE LEVEL 41 MEQ/L (21-32); CHLORIDE LEVEL 94 MEQ/L (98-107); CREATININE FOR GFR 0.87 MG/DL (0.55-1.30); GLOMERULAR FILTRATION RATE > 60.0 (>51); GLUCOSE, FASTING 89 MG/DL (70-100); POTASSIUM SERUM 4.1 MEQ/L (3.5-5.1); SODIUM LEVEL 143 MEQ/L (136-145)
[2020-04-25] MEDS ORDERED: IPRA0.00 INH (02:48)
--- NOTE | 2020-04-25 03:24 | HPEPDOC ---
[facility] Medical History & Physical Date of Admission Apr 25, 2020 Date of Service: Apr 25, 2020 Primary Care Physician: DELANEY JEAN PA-C Attending Physician: NICOLE RESENDEZ MD History and Physical TIME OF SERVICE: 3:20 AM CHIEF COMPLAINT: Shortness of breath HISTORY OF PRESENT ILLNESS: This is a 60-year-old female who presented with complaints of several day in duration, shortness of breath. She came in today because the shortness of breath was worse. She also had transient mid chest pain, and a runny nose. She denies having fevers, chills, nausea, vomiting or diarrhea. Her chronic cough has not changed. She was around somebody who was smoking yesterday and thinks her current symptoms are similar to when her COPD is acting up. REVIEW OF SYSTEMS: 12 point review of systems negative except as listed in HPI PAST MEDICAL/ SURGICAL HISTORY: COPD Chronic oxygen-dependent respiratory failure (3L) Paroxysmal Atrial fibrillation Diastolic CHF Pulmonary hypertension IDDM Dyslipidemia Chronic neck pain Migraine Essential tremors Hypothyroidism Cervical spine fusion Left knee replacement Tubal ligation SOCIAL HISTORY: Quit smoking (has a hx of 30 pack yr habit) She drinks alcohol occasionally FAMILY HISTORY: Liver cirrhosis Colon cancer ALLERGIES: Please see below. HOME MEDICATIONS: Please see below. PHYSICAL EXAMINATION: Vital Signs Date Time Temp Pulse Resp B/P (MAP) Pulse Ox O2 Delivery O2 Flow Rate FiO2 04/25/20 00:26 143/65 (91) 04/25/20 00:26 97.9 04/25/20 00:28 Nasal Cannula 4.0 04/25/20 00:31 93 18 97 GEN: Obese/ well developed/ NAD INTEGUMENT: She doesn't have facial plethora HEENT:NCAT / she doesn't have pursed lip breathing CVS: RRR/ NMRG / radial pulses intact / +1 BLE edema LUNGS: she doesn't have flaring / she is able to speak full sentences without stopping to take a breath / breath sounds are diminished MSK/EXTREMITIES: seated up in hospital bed NEURO: CN 2-12 are grossly intact / speech is not dysarthric PSYCH: alert and oriented to person place and time/ able to understand and follow all commands LABORATORY DATA: 04/25/20 01:59 Immature Granulocyte % (Auto) 1.2, Neutrophils (%) (Auto) 82.6H, Lymphocytes (%) (Auto) 10.6L, Monocytes (%) (Auto) 4.1, Eosinophils (%) (Auto) 1.2, Basophils (%) (Auto) 0.3, Neutrophils # (Auto) 9.0H, Lymphocytes # (Auto) 1.2L, Monocytes # (Auto) 0.5, Eosinophils # (Auto) 0.1, Basophils # (Auto) 0.0, Nucleated Red Blood Cells % (auto) 0.0, Anion Gap 8, Glomerular Filtration Rate > 60.0, Calcium Level 8.5 04/25/20 02:24: POC pH (Misc Panel) 7.369, POC Base Excess (Misc Panel) 19.0H, POC Saturated Percent O2 (Misc) 100H, POC pO2 (Misc Panel) 193.0H, POC pCO2 (Misc Panel) 77.6*H, POC HCO3 (Misc Panel) 44.8H, POC Total CO2 (Misc Panel) 47.0H IMAGING: Chest x-ray appears unremarkable ASSESSMENT: Ms. May is a 60-year-old with a history of COPD, chronic O2 dependent respiratory failure, A. fib, diastolic CHF, pulmonary HTN, IDDM, migraines, hypothyroidism, and multiple surgeries, who is admitted for management of acute COPD. PLAN: 1. Acute COPD w Chronic O2 dependent respiratory failure Trigger likely exposure to a smoker vs aspiration The trop, respiratory panel and chest xray are unrevealing. The ABG shows a pH of 7.36, PO2 of 193 and PCO2 of 77.6 She received dexamethasone and albuterol in the ER Plan: admit to medical floor / supplemental O2 / continuous pulse oximetry / aspiration precautions / COPD diet / f/u VBG in the morning / Dunebs Q6H, Albuterol Q1HP, Prednisone + PPI / no need for abx bc she hasn't had a change in sputum color 2. Chronic Anemia Her baseline Hg is 9.7 Plan: f/u reticulocyte #, iron panel w ferritin, stool occult 3. Paroxysmal Atrial fibrillation Plan: Apixaban, metoprolol 4. Chronic Diastolic CHF / Pulmonary hypertension Plan: Furosemide 5. IDDM Plan: carbohydrate consistent diet / f/u accuchecks / determir 20 units QHS / hypoglycemia protocol / sliding scale insulin / hold oral anti-glycemics 6. Dyslipidemia Plan: atorvastatin 7. Chronic neck pain Plan: oxycodone 8. Hypothyroidism Plan: hypothyroidism DVT PROPHYLAXIS: n/a she is on AC for afib DISPOSITION: likely home after 2 midnight's stay Home Medications Scheduled Apixaban (Eliquis) 5 Mg Tablet, 5 MG PO BID Atorvastatin Calcium (Atorvastatin Calcium) 20 Mg Tab, 20 MG PO QHS Clotrimazole (Clotrimazole) 1% 30GM Cream..g., 1 APLCT TOP BID BOTH FEET Duloxetine Hcl (Duloxetine HCl) 60 Mg Capsule.dr, 60 MG PO DAILY Fluticasone Propion/Salmeterol (Advair Hfa 230-21 Mcg Inhaler) 12 Gm Hfa.aer.ad, 2 PUFF INH BID Furosemide (Furosemide) 40 Mg Tablet, 40 MG PO DAILY Gabapentin (Gabapentin) 600 Mg Tab, 600 MG PO TID Glipizide (Glipizide) 5 Mg Tablet, 5 MG PO DAILY Insulin Detemir (Levemir) 100 Unit/1 Ml Vial, 20 UNITS SC QHS Levothyroxine Sodium (Levothyroxine Sodium) 25 Mcg Tablet, 25 MCG PO DAILY Metformin HCl (Metformin HCl) 500 Mg Tablet, 1,000 MG PO BIDWM Metoprolol Tartrate (Metoprolol Tartrate) 50 Mg Tablet, 50 MG PO BID Olanzapine (Olanzapine) 5 Mg Tablet, 5 MG PO DAILY Oxycodone HCl (Oxycodone HCl) 5 Mg Tablet, 5 MG PO BID Paroxetine HCl (Paroxetine HCl) 40 Mg Tab, 40 MG PO QHS Plecanatide (Trulance) 3 Mg Tablet, 3 MG PO QHS Prednisone (Prednisone) 10 Mg Tablet, 10 MG PO DAILY Take 4 tabs daily x 3 days, then 3 tabs daily x 3 days, then 2 tabs daily x 3 days, then 1 tab daily x 3 days and stop Umeclidinium [place] (Incruse Ellipta) 62.5 Mcg/Inh Inh, 1 PUFF INH DAILY Scheduled PRN Albuterol Sulfate (Ventolin Hfa) 18 Gm Hfa.aer.ad, 2 PUFF INH Q4H PRN for SHORTNESS OF BREATH Ipratropium/Albuterol Sulfate (Iprat-Albut 0.5-3(2.5) mg/3 ml) 3 Ml Ampul.neb, 1 VIAL NEB Q6H PRN for SHORTNESS OF BREATH Allergies Coded Allergies: No Known Allergies (Verified Allergy, Unknown, 12/09/19) A-FIB/CHADSVASC A-FIB History Current/History of A-Fib/PAF?: Yes Current PO Anticoag Therapy: Yes NICOLE RESENDEZ MD Apr 25, 2020 03:24
[2020-04-25] MEDS ORDERED: ALBUTEROL SULFATE 2.5 MG/0.5 ML INH NEB SOLN NEB PRN (03:30)
[2020-04-25] MEDS ORDERED: MAALOX 30 ML SUSP *UDC PO PRN (03:30)
[2020-04-25] MEDS ORDERED: MOM 30ML SUSPENSION UDC PO PRN (03:30)
[2020-04-25] MEDS ORDERED: ACETAMINOPHEN TAB 650MG DOSE (2X325MG) PO PRN (03:30)
[2020-04-25 04:07] LABS: TROPONIN I < 0.02 NG/ML (< 0.10)
[2020-04-25] MEDS ORDERED: GLUCOSE 4GM CHEW TABLET PO PRN (04:30)
[2020-04-25] MEDS ORDERED: DEXTROSE 50% 50 ML SYRINGE IV PRN (04:30)
[2020-04-25] MEDS ORDERED: GLUCAGON INJ 1MG VIAL SC PRN (04:30)
[2020-04-25 05:01] LABS: HEMOGLOBIN A1c 7.5 %
[2020-04-25 06:54] LABS: PERCENT SATURATION 4.9 % (13.2-45.0)
--- NOTE | 2020-04-25 07:29 | REP ---
Clinical: Dyspnea. Comparison: 03/26/2020. Findings: Mediastinum and cardiac silhouette are normal. Lung lee demonstrate chronic interstitial changes. Subtle left basilar atelectasis cannot be excluded. No obvious effusion. No pneumothorax. Impression: Trace left basilar atelectasis. Electronically Signed by Marcus Dacosta MD 04/25/2020 07:20 A
[2020-04-25] MEDS: DULoxetine 30 MG CAP (CYMBALTA) PO SCH (08:11)
[2020-04-25] MEDS: PANTOPRAZOLE 40MG TAB (PROTONIX) PO SCH (08:11)
[2020-04-25] MEDS: predniSONE 20 MG TAB PO SCH (08:12)
[2020-04-25] MEDS: OLANZapine 5 MG TAB PO SCH (08:12)
[2020-04-25] MEDS: FUROSEMIDE 40 MG TAB PO SCH (08:12)
[2020-04-25] MEDS: LEVOTHYROXINE 25MCG TABLET (0.025MG) PO SCH (08:12)
[2020-04-25] MEDS: oxyCODONE 5MG TAB PO SCH ×2 (08:13→20:53)
[2020-04-25] MEDS: APIXABAN 5 MG TAB (ELIQUIS) PO SCH ×2 (08:13→20:54)
[2020-04-25] MEDS: METOPROLOL TART 50 MG TAB PO SCH ×2 (08:13→20:52)
[2020-04-25] MEDS: GABAPENTIN 300 MG CAP PO SCH ×3 (08:13→20:51)
[2020-04-25] MEDS: HumaLOG INSULIN (NovoLOG) PER UNIT SC SCH ×3 (08:14→17:33)
[2020-04-25] MEDS: SENOKOT S TAB PO SCH ×2 (10:04→20:51)
[2020-04-25] MEDS: CLOTRIMAZOLE 1% TOPICAL CREAM 30GM TOP SCH ×2 (10:04→20:56)
[2020-04-25] MEDS: glipiZIDE (GLUCOTROL) 5 MG TAB PO SCH (10:04)
--- NOTE | 2020-04-25 12:02 | IPNPDOC ---
Text Note Date of Service The patient was seen on 04/25/20. NOTE SUBJECTIVE: Feeling better today. says feels like a new person. Her SOB is much better. No wheezing or cough. VITALS: As Below GEN: Obese/ well developed/ NAD INTEGUMENT: She doesn't have facial plethora HEENT: she doesn't have pursed lip breathing , moist mucous membranes an icteric eyes. CVS: RRR/ NMRG / radial pulses intact / +1 BLE edema LUNGS: she doesn't have flaring / she is able to speak full sentences without stopping to take a breath / breath sounds are diminished , no ronchi or crackles. MSK/EXTREMITIES: seated up in hospital bed NEURO: CN 2-12 are grossly intact / speech is not dysarthric PSYCH: alert and oriented to person place and time/ able to understand and follow all commands ASSESSMENT AND PLAN: Ms. May is a 60-year-old with a history of COPD, chronic O2 dependent respiratory failure, A. fib, diastolic CHF, pulmonary HTN, IDDM, migraines, hypothyroidism, and multiple surgeries, who is admitted for management of acute COPD. Acute COPD w Chronic hypoxic and hypercarbic respiratory failure Trigger likely exposure to a smoker vs aspiration The trop, respiratory panel and chest xray are unrevealing. The ABG shows a pH of 7.36, PO2 of 193 and PCO2 of 77.6 COPD diet Dunebs Q6H, Albuterol Q1HP, Prednisone + PPI , advair procalcitonin normal Chronic Anemia Her baseline Hg is 9.7 noted ferritin of 12 iron def will supplement Colonoscopy in 2016 and 2017 several but all poor prep. Paroxysmal Atrial fibrillation Apixaban, metoprolol Chronic Diastolic CHF / Pulmonary hypertension Furosemide IDDM carbohydrate consistent diet f/u accuchecks / determir 20 units QHS / hypoglycemia protocol / sliding scale insulin Dyslipidemia atorvastatin Chronic neck pain oxycodone Hypothyroidism synthroid DVT PROPHYLAXIS: n/a she is on AC for afib VS,Fishbone, I+O VS, Fishbone, I+O Laboratory Tests 04/25/20 01:59 Vital Signs Date Time Temp Pulse Resp B/P (MAP) Pulse Ox O2 Delivery O2 Flow Rate FiO2 04/25/20 05:30 94 Nasal Cannula 4.0 04/25/20 05:15 97.7 104 16 152/86 (108) I&O- Last 24 Hours up to 6 AM 04/25/20 06:00 Intake Total 0 ml Output Total 0 ml Balance 0 ml PARRIS ARENAS MD Apr 25, 2020 08:09
[2020-04-25] MEDS: ADVAIR HFA 230/21MCG INHALER INH SCH ×2 (14:05→19:27)
[2020-04-25] MEDS: LEVEMIR (INSULIN DETEMIR) 1 UNITS/0.01ML SC SCH (21:00)
[2020-04-25] MEDS ORDERED: ATORVASTATIN 20 MG TAB PO SCH (21:00)
[2020-04-25] MEDS ORDERED: HumaLOG INSULIN (NovoLOG) PER UNIT SC SCH (21:00)
[2020-04-25] MEDS ORDERED: PARoxetine 20 MG TAB PO SCH (21:00)
[2020-04-25] MEDS ORDERED: ENTER DRUG NAME HERE (PATIENT'S OWN MED) PO SCH (21:00)
[2020-04-26] MEDS: IPRATROPIUM 0.5MG/ALBUTEROL 2.5MG INH SOL UD 3ML (DUONEB) NEB SCH ×2 (00:14→08:00)
[2020-04-26 06:00] VITALS: BP 138/113
[2020-04-26 07:18] LABS: HEMATOCRIT 32.3 % (36.0-47.0); HEMOGLOBIN 9.5 g/dl (12.0-15.5); MEAN CORPUSCULAR HEMOGLOBIN 25.5 pg (27.0-33.0); MEAN CORPUSCULAR HGB CONC 29.4 g/dl (32.0-36.5); MEAN CORPUSCULAR VOLUME 86.6 fl (80.0-96.0); PLATELET COUNT, AUTOMATED 302 10^3/uL (150-450); RED BLOOD COUNT 3.73 10^6/uL (4.00-5.40); WHITE BLOOD COUNT 9.7 10^3/uL (4.0-10.0)
[2020-04-26 07:46] LABS: BLOOD UREA NITROGEN 16 MG/DL (7-18); CALCIUM LEVEL 9.1 MG/DL (8.5-10.1); CARBON DIOXIDE LEVEL 43 MEQ/L (21-32); CHLORIDE LEVEL 91 MEQ/L (98-107); CREATININE FOR GFR 0.87 MG/DL (0.55-1.30); GLOMERULAR FILTRATION RATE > 60.0 (>51); GLUCOSE, FASTING 103 MG/DL (70-100); POTASSIUM SERUM 3.8 MEQ/L (3.5-5.1); SODIUM LEVEL 138 MEQ/L (136-145)
[2020-04-26] MEDS: HumaLOG INSULIN (NovoLOG) PER UNIT SC SCH ×2 (08:11→12:14)
[2020-04-26] MEDS: oxyCODONE 5MG TAB PO SCH (08:12)
[2020-04-26] MEDS: predniSONE 20 MG TAB PO SCH (08:12)
[2020-04-26] MEDS: GABAPENTIN 300 MG CAP PO SCH (08:12)
[2020-04-26] MEDS: DULoxetine 30 MG CAP (CYMBALTA) PO SCH (08:12)
[2020-04-26] MEDS: PANTOPRAZOLE 40MG TAB (PROTONIX) PO SCH (08:12)
[2020-04-26] MEDS: SENOKOT S TAB PO SCH (08:12)
[2020-04-26] MEDS: LEVOTHYROXINE 25MCG TABLET (0.025MG) PO SCH (08:13)
[2020-04-26] MEDS: FUROSEMIDE 40 MG TAB PO SCH (08:13)
[2020-04-26] MEDS: glipiZIDE (GLUCOTROL) 5 MG TAB PO SCH (08:13)
[2020-04-26] MEDS: APIXABAN 5 MG TAB (ELIQUIS) PO SCH (08:13)
[2020-04-26] MEDS: OLANZapine 5 MG TAB PO SCH (08:13)
[2020-04-26] MEDS: CLOTRIMAZOLE 1% TOPICAL CREAM 30GM TOP SCH (08:14)
[2020-04-26 08:15] VITALS: BP 137/89
[2020-04-26] MEDS: METOPROLOL TART 50 MG TAB PO SCH (08:15)
[2020-04-26] MEDS: ADVAIR HFA 230/21MCG INHALER INH SCH (08:32)
[2020-04-26 09:05] VITALS: O2SAT 90
--- NOTE | 2020-04-27 00:24 | DS.PDOC ---
Discharge Summary General Date of Admission Apr 25, 2020 at 03:21 Date of Discharge 04/26/20 Discharge Summary PROCEDURES PERFORMED DURING STAY: [None]. DISCHARGE DIAGNOSES: COPD exacerbation Chronic hypercarbic and hypoxic respiratory failure. Severe iron deficiency SECONDARY DIAGNOSIS: Paroxysmal Atrial fibrillation Diastolic CHF Pulmonary hypertension IDDM Chronic anemia Dyslipidemia Chronic neck pain Migraine Essential tremors Hypothyroidism Cervical spine fusion Left knee replacement COMPLICATIONS/CHIEF COMPLAINT: Copd With Acute Exacerbation. HOSPITAL COURSE: Ms. May is a 60-year-old with a history of COPD, chronic O2 dependent respiratory failure, A. fib, diastolic CHF, pulmonary HTN, IDDM, migraines, hypothyroidism, and multiple surgeries, who is admitted for management of acute COPD. Acute COPD w Chronic hypoxic and hypercarbic respiratory failure Trigger likely exposure to a smoker vs aspiration The trop, respiratory panel and chest xray are unrevealing. The ABG shows a pH of 7.36, PO2 of 193 and PCO2 of 77.6 Albuterol, Prednisone taper, Advair procalcitonin normal Chronic Anemia Her baseline Hg is 9.7 noted ferritin of 12 Severe iron def supplemented Colonoscopy in 2015 and 2017 several but all poor prep. Paroxysmal Atrial fibrillation Apixaban, metoprolol Chronic Diastolic CHF / Pulmonary hypertension Furosemide IDDM carbohydrate consistent diet f/u accuchecks / determir 20 units QHS / hypoglycemia protocol / sliding scale insulin Dyslipidemia atorvastatin Chronic neck pain oxycodone Hypothyroidism synthroid DVT PROPHYLAXIS: n/a she is on AC for afib DISCHARGE MEDICATIONS: Please see below. ALLERGIES: Please see below. PHYSICAL EXAMINATION ON DISCHARGE: VITAL SIGNS: Please see below. GEN: Obese/ well developed/ NAD INTEGUMENT: She doesn't have facial plethora HEENT: she doesn't have pursed lip breathing , moist mucous membranes an icteric eyes. CVS: RRR/ NMRG / radial pulses intact / +1 BLE edema LUNGS: she doesn't have flaring / she is able to speak full sentences without stopping to take a breath / breath sounds are diminished , no ronchi or crackles. MSK/EXTREMITIES: seated up in hospital bed NEURO: CN 2-12 are grossly intact / speech is not dysarthric PSYCH: alert and oriented to person place and time/ able to understand and follow all commands LABORATORY DATA: Please see below. ACTIVITY: [As tolerated]. DIET: As tolerated DISPOSITION: 01 Home, Self-Care. DISCHARGE INSTRUCTIONS: PMD in 1 weeks DISCHARGE CONDITION: [Stable]. TIME SPENT ON DISCHARGE: 35 minutes. Vital Signs/I&Os Vital Signs Date Time Temp Pulse Resp B/P (MAP) Pulse Ox O2 Delivery O2 Flow Rate FiO2 04/26/20 09:23 15 04/26/20 09:05 90 Nasal Cannula 4.0 04/26/20 08:15 86 137/89 04/26/20 06:00 98.1 I&O- Last 24 Hours up to 6 AM 04/26/20 07:00 Intake Total 780 ml Output Total 2200 ml Balance -1420 ml Laboratory Data Labs 24H Laboratory Tests 2 04/26/20 06:56: Nucleated Red Blood Cells % (auto) 0.2H, Anion Gap 4L, Glomerular Filtration Rate > 60.0, Calcium Level 9.1 04/26/20 11:32: Bedside Glucose (Misc Panel) 238H CBC/BMP Laboratory Tests 04/26/20 06:56 FSBS Laboratory Tests Test 04/26/20 11:32 Range/Units Bedside Glucose (Misc Panel) 238 70-105 MG/DL Microbiology Microbiology 04/25/20 Respiratory Virus Panel (PCR) (KARUNA) - Final, Complete Discharge Medications Scheduled Apixaban (Eliquis) 5 Mg Tablet, 5 MG PO BID, (Reported) Atorvastatin Calcium (Atorvastatin Calcium) 20 Mg Tab, 20 MG PO QHS, (Reported) Clotrimazole (Clotrimazole) 1% 30GM Cream..g., 1 APLCT TOP BID, (Reported) BOTH FEET Duloxetine Hcl (Duloxetine HCl) 60 Mg Capsule.dr, 60 MG PO DAILY, (Reported) Fluticasone Propion/Salmeterol (Advair Hfa 230-21 Mcg Inhaler) 12 Gm Hfa.aer.ad, 2 PUFF INH BID, (Reported) Furosemide (Furosemide) 40 Mg Tablet, 40 MG PO DAILY, (Reported) Gabapentin (Gabapentin) 600 Mg Tab, 600 MG PO TID, (Reported) Glipizide (Glipizide) 5 Mg Tablet, 5 MG PO DAILY, (Reported) Insulin Detemir (Levemir) 100 Unit/1 Ml Vial, 20 UNITS SC QHS, (Reported) Levothyroxine Sodium (Levothyroxine Sodium) 25 Mcg Tablet, 25 MCG PO DAILY, (Reported) Metformin HCl (Metformin HCl) 500 Mg Tablet, 1,000 MG PO BIDWM, (Reported) Metoprolol Tartrate (Metoprolol Tartrate) 50 Mg Tablet, 50 MG PO BID, (Reported) Olanzapine (Olanzapine) 5 Mg Tablet, 5 MG PO DAILY, (Reported) Oxycodone HCl (Oxycodone HCl) 5 Mg Tablet, 5 MG PO BID, (Reported) Paroxetine HCl (Paroxetine HCl) 40 Mg Tab, 40 MG PO QHS, (Reported) Plecanatide (Trulance) 3 Mg Tablet, 3 MG PO QHS, (Reported) Prednisone (Prednisone) 10 Mg Tablet, 10 MG PO DAILY, (Reported) Take 4 tabs daily x 3 days, then 3 tabs daily x 3 days, then 2 tabs daily x 3 days, then 1 tab daily x 3 days and stop Umeclidinium [place] (Incruse Ellipta) 62.5 Mcg/Inh Inh, 1 PUFF INH DAILY, (Reported) Scheduled PRN Albuterol Sulfate (Ventolin Hfa) 18 Gm Hfa.aer.ad, 2 PUFF INH Q4H PRN for SHORTNESS OF BREATH, (Reported) Ipratropium/Albuterol Sulfate (Iprat-Albut 0.5-3(2.5) mg/3 ml) 3 Ml Ampul.neb, 1 VIAL NEB Q6H PRN for SHORTNESS OF BREATH, (Reported) Allergies Coded Allergies: No Known Allergies (Verified Allergy, Unknown, 12/09/19) PARRIS ARENAS MD Apr 27, 2020 00:24
== END 2020-04-26 13:01 | disposition home or self-care (01) | DRG 191 ==
LOC: M ED 00:16 → M ED INP 03:21 → ENRESERV 03:40 → M MSPAV 05:12
PROVIDERS: ADMIT Internal Medicine; ATTEND Internal Medicine Nephrology
DX: J44.1 Chronic obstructive pulmonary disease with (acute) exacerbation (principal); J96.11 Chronic respiratory failure with hypoxia; I50.32 Chronic diastolic (congestive) heart failure; J96.12 Chronic respiratory failure with hypercapnia; I48.0 Paroxysmal atrial fibrillation; I27.20 Pulmonary hypertension, unspecified; E11.9 Type 2 diabetes mellitus without complications; E78.5 Hyperlipidemia, unspecified; M54.2 Cervicalgia; D64.9 Anemia, unspecified; G43.909 Migraine, unspecified, not intractable, without status migrainosus; G25.0 Essential tremor; E03.9 Hypothyroidism, unspecified; Z99.81 Dependence on supplemental oxygen; Z98.1 Arthrodesis status; Z96.652 Presence of left artificial knee joint; Z87.891 Personal history of nicotine dependence; Z11.59 Encounter for screening for other viral diseases; Z79.01 Long term (current) use of anticoagulants; Z79.891 Long term (current) use of opiate analgesic; Z79.52 Long term (current) use of systemic steroids; Z79.84 Long term (current) use of oral hypoglycemic drugs

== ENCOUNTER 2020-05-08 17:35 | Emergency (ER) | payer MEDICARE, MEDICAID ==
[~2020-05-08] VITALS: Ht 167.6 cm; Wt 95.5 kg
[~2020-05-08 17:35] MED LIST changes: +CLOT1CRE27 TOP; +IPRA0.00 NEB
[2020-05-08] MEDS ORDERED: ASPIRIN 81 MG CHEW TABLET PO ONE (18:00)
[2020-05-08] MEDS ORDERED: ALBUTEROL 90 MCG/ACT 8GM HFA INHALER INH ONE (18:00)
[2020-05-08] MEDS ORDERED: FUROSEMIDE 100MG/10ML VIAL (J1940) IV ONE (18:15)
[2020-05-08 18:26] LABS: BASO % 0.3 % (0.0-1.0); EOS # 0.1 10^3/uL (0.0-0.5); EOS % 0.7 % (0.0-3.0); HEMATOCRIT 33.3 % (36.0-47.0); HEMOGLOBIN 9.2 g/dl (12.0-15.5); LYMPH # 1.5 10^3/uL (1.5-5.0); LYMPH % 14.3 % (24.0-44.0); MEAN CORPUSCULAR HEMOGLOBIN 24.9 pg (27.0-33.0); MEAN CORPUSCULAR HGB CONC 27.6 g/dl (32.0-36.5); MEAN CORPUSCULAR VOLUME 90.2 fl (80.0-96.0); MONO # 0.6 10^3/uL (0.0-0.8); MONO % 5.2 % (0.0-5.0); NEUTROPHILS # 8.3 10^3/uL (1.5-8.5); NEUTROPHILS % 78.2 % (36.0-66.0); PLATELET COUNT, AUTOMATED 322 10^3/uL (150-450); RED BLOOD COUNT 3.69 10^6/uL (4.00-5.40); WHITE BLOOD COUNT 10.6 10^3/uL (4.0-10.0)
[2020-05-08 18:40] LABS: INR 1.29; PROTHROMBIN TIME 15.8 SECONDS (11.8-14.0)
[2020-05-08 18:43] LABS: D-DIMER QUANT 305.66 ng/ml (<500)
[2020-05-08 19:18] LABS: ALBUMIN 3.1 GM/DL (3.2-5.2); ALT/SGPT 23 U/L (12-78); BILIRUBIN,DIRECT 0.2 MG/DL (0.0-0.2); BILIRUBIN,TOTAL 0.3 MG/DL (0.2-1.0); BLOOD UREA NITROGEN 16 MG/DL (7-18); CALCIUM LEVEL 8.4 MG/DL (8.5-10.1); CHLORIDE LEVEL 92 MEQ/L (98-107); CREATININE FOR GFR 0.94 MG/DL (0.55-1.30); GLOMERULAR FILTRATION RATE > 60.0 (>51); GLUCOSE, FASTING 116 MG/DL (70-100); NT-PRO BNP 230 PG/ML (<125); POTASSIUM SERUM 3.9 MEQ/L (3.5-5.1); SODIUM LEVEL 141 MEQ/L (136-145); TOTAL PROTEIN 6.5 GM/DL (6.4-8.2)
[2020-05-08 19:20] LABS: CARBON DIOXIDE LEVEL 49 MEQ/L (21-32)
[2020-05-08 21:00] VITALS: BP 115/66
--- NOTE | 2020-05-09 09:25 | REP ---
REASON: Cough and dyspnea. COMPARISON: Latest prior 04/25/2020, also portable. The technique utilized in obtaining the radiograph has magnified the cardiac silhouette and accentuated the interstitial markings. There is no change in the appearance of the curvilinear left basilar opacities. There are no new abnormal opacities. The heart is not enlarged; however, it is magnified by technique. There is no change in the osseous structures. IMPRESSION: No significant change. Subtle left basilar opacities suggestive of subsegmental atelectatic change persist. Electronically Signed by Malvin Weiner DO 05/09/2020 09:56 A
--- NOTE | 2020-05-09 09:44 | ECGEPIP ---
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
== END 2020-05-08 21:46 | disposition home or self-care (01) ==
LOC: EDBD 17:35 → M ED 17:35
DX: J44.1 Chronic obstructive pulmonary disease with (acute) exacerbation (principal); J98.01 Acute bronchospasm; R00.0 Tachycardia, unspecified; I51.9 Heart disease, unspecified; E11.9 Type 2 diabetes mellitus without complications; I10 Essential (primary) hypertension; Z87.891 Personal history of nicotine dependence; Z79.01 Long term (current) use of anticoagulants; Z79.4 Long term (current) use of insulin; Z79.899 Other long term (current) drug therapy
CPT/HCPCS: 36600; 71045; 80048; 80076; 82803; 83880; 84484; 85025; 85379; 85610; 87040; 87486; 87581; 87633; 87798; 93005; 93041; 94640; 96374; 99285; J1940

== ENCOUNTER 2020-06-09 14:40 | Inpatient (IN) | payer MEDICARE, MEDICAID ==
[~2020-06-09 14:40] MED LIST changes: +IPRA0.00 INH; -IPRA0.00 NEB
[2020-06-09] MEDS ORDERED: AZITHROMYCIN 250MG TABLET As Ordered ONE (19:25)
[2020-06-09] MEDS ORDERED: methylPREDNISolone 40MG 1ML VIAL As Ordered ONE (19:25)
[2020-06-09] MEDS ORDERED: HumaLOG INSULIN (NovoLOG) PER UNIT SC SCH (21:00)
[2020-06-09] MEDS ORDERED: ATORVASTATIN 20 MG TAB PO SCH (21:00)
[2020-06-09] MEDS ORDERED: PARoxetine 20 MG TAB PO SCH (21:00)
[2020-06-09 21:01] VITALS: BP 176/82
[2020-06-09] MEDS ORDERED: GLUCAGON INJ 1MG VIAL SC PRN (21:15)
[2020-06-09] MEDS ORDERED: IPRATROPIUM 0.5MG/ALBUTEROL 2.5MG INH SOL UD 3ML (DUONEB) NEB SCH (21:15)
[2020-06-09] MEDS ORDERED: oxyCODONE 5MG TAB PO PRN (21:15)
[2020-06-09] MEDS ORDERED: GLUCOSE 4GM CHEW TABLET PO PRN (21:15)
[2020-06-09] MEDS ORDERED: DEXTROSE 50% 50 ML SYRINGE IV PRN (21:15)
[2020-06-09] MEDS ORDERED: PRED10TA2 PO (22:25)
[2020-06-10] VITALS (9 sets, daily range): BP systolic 124–167; BP diastolic 75–100; O2SAT 88–94
[2020-06-10] MEDS ORDERED: IPRATROPIUM 0.5MG/ALBUTEROL 2.5MG INH SOL UD 3ML (DUONEB) NEB SCH
[2020-06-10] MEDS: APIXABAN 5 MG TAB (ELIQUIS) PO SCH ×2 (00:39→08:12)
[2020-06-10] MEDS: GABAPENTIN 300 MG CAP PO SCH ×3 (00:39→17:18)
[2020-06-10 02:21] LABS: ABG BASE EXCESS 12.5 (-2.0-2.0); ABG HCO3 39.2 MEQ/L (22.0-26.0); ABG PARTIAL PRESSURE CO2 63.2 mmHg (35.0-45.0); ABG PARTIAL PRESSURE O2 90.7 mmHg (75.0-100.0); ABG STANDARD HCO3 36.2 MEQ/L (22.0-26.0); ABG TOTAL CO2 41.1 MEQ/L (22.0-29.0)
[2020-06-10 02:22] LABS: ABG O2 SATURATION 96.6 % (95.0-99.0)
[2020-06-10] MEDS: IPRATROPIUM 0.5MG/ALBUTEROL 2.5MG INH SOL UD 3ML (DUONEB) NEB SCH ×4 (03:35→16:03)
[2020-06-10] MEDS: methylPREDNISolone 40MG 1ML VIAL IV SCH ×2 (03:57→12:39)
[2020-06-10] MEDS ORDERED: LEVOTHYROXINE 25MCG TABLET (0.025MG) PO SCH (06:00)
[2020-06-10 06:13] LABS: HEMATOCRIT 31.9 % (36.0-47.0); HEMOGLOBIN 9.1 g/dl (12.0-15.5); MEAN CORPUSCULAR HEMOGLOBIN 24.1 pg (27.0-33.0); MEAN CORPUSCULAR HGB CONC 28.5 g/dl (32.0-36.5); MEAN CORPUSCULAR VOLUME 84.4 fl (80.0-96.0); PLATELET COUNT, AUTOMATED 258 10^3/uL (150-450); RED BLOOD COUNT 3.78 10^6/uL (4.00-5.40); WHITE BLOOD COUNT 7.3 10^3/uL (4.0-10.0)
[2020-06-10 06:24] LABS: ABG pH (ARTERIAL) 7.432 UNITS (7.350-7.450)
[2020-06-10 06:25] LABS: ABG BASE EXCESS 14.8 (-2.0-2.0); ABG HCO3 41.3 MEQ/L (22.0-26.0); ABG O2 SATURATION 97.5 % (95.0-99.0); ABG PARTIAL PRESSURE CO2 63.4 mmHg (35.0-45.0); ABG PARTIAL PRESSURE O2 97.4 mmHg (75.0-100.0); ABG STANDARD HCO3 38.6 MEQ/L (22.0-26.0); ABG TOTAL CO2 43.3 MEQ/L (22.0-29.0)
[2020-06-10 06:46] LABS: BLOOD UREA NITROGEN 29 MG/DL (7-18); CARBON DIOXIDE LEVEL 42 MEQ/L (21-32); CHLORIDE LEVEL 89 MEQ/L (98-107); CREATININE FOR GFR 0.71 MG/DL (0.55-1.30); GLOMERULAR FILTRATION RATE > 60.0 (>51); GLUCOSE, FASTING 180 MG/DL (70-100); POTASSIUM SERUM 3.8 MEQ/L (3.5-5.1); SODIUM LEVEL 137 MEQ/L (136-145)
[2020-06-10] MEDS: HumaLOG INSULIN (NovoLOG) PER UNIT SC SCH ×3 (08:13→17:17)
[2020-06-10] MEDS ORDERED: METOPROLOL TART 50 MG TAB PO SCH (09:00)
[2020-06-10] MEDS ORDERED: DULoxetine 30 MG CAP (CYMBALTA) PO SCH (09:00)
[2020-06-10] MEDS ORDERED: OLANZapine 5 MG TAB PO SCH (09:00)
[2020-06-10] MEDS ORDERED: AZITHROMYCIN 250MG TABLET PO SCH (09:00)
[2020-06-10] MEDS ORDERED: FUROSEMIDE 40 MG TAB PO SCH (09:00)
[2020-06-10] MEDS ORDERED: PRED10TA2 PO (09:31)
[2020-06-10] MEDS ORDERED: AZIT-12 PO (09:31)
[2020-06-10] MEDS ORDERED: SLF 3 ML SYR IV PRN (12:00)
--- NOTE | 2020-06-10 13:30 | DS.PDOC ---
Discharge Summary General Date of Admission Jun 09, 2020 at 14:40 Date of Discharge Jun 10, 2020 at 13:09 Primary Care Physician: BERKLEY GONZALEZ DO Specialist[facility] Discharge Summary PROCEDURES PERFORMED DURING STAY: [None]. ADMITTING DIAGNOSES: 1. Acute on chronic hypoxic hypercapnic respiratory failure DISCHARGE DIAGNOSES: 1. Acute on chronic hypoxic hypercapnic respiratory failure COMPLICATIONS/CHIEF COMPLAINT: Copd Exacerbation. HISTORY OF PRESENT ILLNESS and HOSPITAL COURSE: Patient is a 60 year old female here with worsening dyspnea. On the morning of admission, she was feeling dyspnea. Her pulse ox was 63% at room air. She did not tolerate NC and was escalated to BIPAP. Her first ABG showed a pCO2 of 88 (unknown if it was at room air or on respiratory device). Her second ABG showed a pCO2 of 74.6 with BIPAP of 15/5. Pulmonology was consulted. Patient is known to be non-compliant. Patient was started on IV steroids, azithromycin, inhalers, and BiPap. This morning, she recovered unexpectedly quickly. She was on her baseline of 4L NC. She was feeling well. Denies fever/chills, chest pain, abdominal pain, or dy suria. She has chronic productive cough and chronic dyspnea. She felt well and felt ready for home. She was discharged with a steroid taper and is to continue prednisone 10mg daily after completing taper. DISCHARGE MEDICATIONS: Please see below. ALLERGIES: Please see below. PHYSICAL EXAMINATION ON DISCHARGE: VITAL SIGNS: Please see below. GENERAL: Comfortable, in no distress HEENT: Head normocephalic, atraumatic, EOMI, Sclera clear NECK: Supple CARDIOVASCULAR EXAMINATION: Regular rate and rhythm RESPIRATORY EXAMINATION: Decreased but clear ABDOMINAL EXAMINATION: Soft, nontender, normal bowel sounds EXTREMITIES: Mild pitting edema NEUROLOGICAL EXAMINATION: CN 3-12 grossly intact PSYCHIATRIC EXAMINATION: Normal mood and affect LABORATORY DATA: Please see below. PROGNOSIS: Stable ACTIVITY: [As tolerated]. DIET: Carb Consistent DISCHARGE PLAN: Home DISCHARGE INSTRUCTIONS: 1. Prednisone taper ending in 10mg daily 2. Follow up with PCP and agricultural chemicals inspector DISCHARGE CONDITION: [Stable]. TIME SPENT ON DISCHARGE: Total time spent on discharge planning, discharge summary, and medication reconciliation 40 minutes. Vital Signs/I&Os Vital Signs Date Time Temp Pulse Resp B/P (MAP) Pulse Ox O2 Delivery O2 Flow Rate FiO2 06/10/20 12:00 97.5 90 22 125/75 (92) 94 NIPPV (BIPAP/CPAP) 06/10/20 08:00 3.0 I&O- Last 24 Hours up to 6 AM 06/10/20 06:00 Intake Total 360 ml Output Total 750 ml Balance -390 ml Laboratory Data Labs 24H Laboratory Tests 2 06/10/20 02:10: Blood Gas Bicarbonate Standard 36.2H, Arterial Blood pH 7.410, Arterial Blood Partial Pressure CO2 63.2*H, Arterial Blood Partial Pressure O2 90.7, Arterial Blood Total CO2 41.1H, Arterial Blood HCO3 39.2H, Arterial Blood Base Excess 12.5H, Arterial Blood Oxygen Saturation 96.6 06/10/20 05:13: Nucleated Red Blood Cells % (auto) 0.0, Anion Gap 6L, Glomerular Filtration Rate > 60.0, Calcium Level 9.0 06/10/20 06:00: Blood Gas Bicarbonate Standard 38.6H, Arterial Blood pH 7.432, Arterial Blood Partial Pressure CO2 63.4*H, Arterial Blood Partial Pressure O2 97.4, Arterial Blood Total CO2 43.3H, Arterial Blood HCO3 41.3H, Arterial Blood Base Excess 14.8H, Arterial Blood Oxygen Saturation 97.5 CBC/BMP Laboratory Tests 06/10/20 05:13 Discharge Medications Scheduled Apixaban (Eliquis) 5 Mg Tablet, 5 MG PO BID, (Reported) Atorvastatin Calcium (Atorvastatin Calcium) 20 Mg Tab, 20 MG PO QHS, (Reported) Azithromycin (Azithromycin) 250 Mg Tablet, 500 MG PO DAILY Continue for 2 more days Duloxetine Hcl (Duloxetine HCl) 60 Mg Capsule.dr, 60 MG PO DAILY, (Reported) Fluticasone Propion/Salmeterol (Advair Hfa 230-21 Mcg Inhaler) 12 Gm Hfa.aer.ad, 2 PUFF INH BID, (Reported) Furosemide (Furosemide) 40 Mg Tablet, 40 MG PO DAILY, (Reported) Gabapentin (Gabapentin) 600 Mg Tab, 600 MG PO TID, (Reported) Glipizide (Glipizide) 5 Mg Tablet, 5 MG PO DAILY, (Reported) Insulin Detemir (Levemir) 100 Unit/1 Ml Vial, 20 UNITS SC QHS, (Reported) IF BS>200 Levothyroxine Sodium (Levothyroxine Sodium) 25 Mcg Tablet, 25 MCG PO DAILY, (Reported) Metformin HCl (Metformin HCl) 500 Mg Tablet, 500 MG PO BIDWM, (Reported) Metoprolol Tartrate (Metoprolol Tartrate) 50 Mg Tablet, 50 MG PO BID, (Reported) Olanzapine (Olanzapine) 5 Mg Tablet, 5 MG PO DAILY, (Reported) Oxycodone HCl (Oxycodone HCl) 5 Mg Tablet, 5 MG PO BID, (Reported) Paroxetine HCl (Paroxetine HCl) 40 Mg Tab, 40 MG PO QHS, (Reported) Plecanatide (Trulance) 3 Mg Tablet, 3 MG PO QHS, (Reported) Prednisone (Prednisone) 10 Mg Tablet, 10 MG PO TAPER Take 4 tabs daily x 3 days, then 3 tabs daily x 3 days, then 2 tabs daily x 3 days, then 1 tab daily and continue Umeclidinium [place] (Incruse Ellipta) 62.5 Mcg/Inh Inh, 1 PUFF INH DAILY, (Reported) Scheduled PRN Albuterol Sulfate (Ventolin Hfa) 18 Gm Hfa.aer.ad, 2 PUFF INH Q4H PRN for SHORTNESS OF BREATH, (Reported) Ipratropium/Albuterol Sulfate (Iprat-Albut 0.5-3(2.5) mg/3 ml) 3 Ml Ampul.neb, 3 ML INH Q6H PRN for SHORTNESS OF BREATH, (Reported) Allergies Coded Allergies: No Known Allergies (Verified Allergy, Unknown, 12/09/19) BERKLEY GONZALEZ DO Jun 10, 2020 13:30
[2020-06-10] MEDS ORDERED: SLF 3 ML SYR IV SCH (14:00)
[2020-06-10] MEDS ORDERED: CEFD1CAP8 PO (15:34)
[2020-06-13 20:05] LABS: ALBUMIN 3.1 GM/DL (3.2-5.2); ALT/SGPT 34 U/L (12-78); BILIRUBIN,DIRECT 0.1 MG/DL (0.0-0.2); BILIRUBIN,TOTAL 0.5 MG/DL (0.2-1.0); CK-MB VALUE MASS < 1.0 NG/ML (<3.6); CPK CREATINE PHOSPHOKINASE 23 U/L (26-192); FREE T4 1.21 NG/DL (0.76-1.46); MB/CK RELATIVE INDEX 4.35 (< OR =4); NT-PRO BNP 905 PG/ML (<125); TOTAL PROTEIN 6.3 GM/DL (6.4-8.2); TROPONIN I < 0.02 NG/ML (< 0.10)
--- NOTE | 2020-07-03 14:41 | ECGEPIP ---
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
[2020-07-20 08:24] LABS: BASO % 0.3 % (0.0-1.0); EOS # 0.2 10^3/uL (0.0-0.5); EOS % 2.1 % (0.0-3.0); HEMATOCRIT 36.7 % (36.0-47.0); HEMOGLOBIN 10.2 g/dl (12.0-15.5); LYMPH % 17.4 % (24.0-44.0); MEAN CORPUSCULAR HEMOGLOBIN 23.9 pg (27.0-33.0); MEAN CORPUSCULAR HGB CONC 27.8 g/dl (32.0-36.5); MEAN CORPUSCULAR VOLUME 86.2 fl (80.0-96.0); MONO # 0.8 10^3/uL (0.0-0.8); NEUTROPHILS # 8.1 10^3/uL (1.5-8.5); PLATELET COUNT, AUTOMATED 298 10^3/uL (150-450); RED BLOOD COUNT 4.26 10^6/uL (4.00-5.40); WHITE BLOOD COUNT 11.3 10^3/uL (4.0-10.0)
== END 2020-06-10 19:23 | disposition home or self-care (01) | DRG 189 ==
LOC: M ED INP 14:40 → M PCU 19:33
PROVIDERS: ADMIT Internal Medicine; ATTEND Internal Medicine
DX: J96.21 Acute and chronic respiratory failure with hypoxia (principal); J44.1 Chronic obstructive pulmonary disease with (acute) exacerbation; J96.22 Acute and chronic respiratory failure with hypercapnia; Z79.899 Other long term (current) drug therapy; Z91.19 Patient's noncompliance with other medical treatment and regimen; E11.9 Type 2 diabetes mellitus without complications; I10 Essential (primary) hypertension; Z87.891 Personal history of nicotine dependence; E03.9 Hypothyroidism, unspecified; G47.33 Obstructive sleep apnea (adult) (pediatric)

== ENCOUNTER 2020-06-11 18:34 | Emergency (ER) | payer MEDICARE, MEDICAID ==
[~2020-06-11 18:34] MED LIST changes: +AZIT-12 PO
[2020-06-11] MEDS ORDERED: oxyCODONE 5MG TAB PO ONE (19:00)
--- NOTE | 2020-06-11 19:22 | REPVR ---
PROCEDURE INFORMATION: Exam: CT Cervical Spine Without Contrast Exam date and time: 06/11/2020 7:07 PM Age: 60 years old Clinical indication: Injury or trauma; Fall; Initial encounter; Blunt trauma; Additional info: Fall; Head injury TECHNIQUE: Imaging protocol: Computed tomography images of the cervical spine without contrast. Radiation optimization: All CT scans at this facility use at least one of these dose optimization techniques: automated exposure control; mA and/or kV adjustment per patient size (includes targeted exams where dose is matched to clinical indication); or iterative reconstruction. COMPARISON: CT Spine,cervical w/o contrast 02/04/2014 3:49 PM FINDINGS: Vertebrae: Nonspecific straightening. Vertebral body height and AP alignment is preserved. Previous fusion involving C3 through C6. Mild degenerative change about the dens. Mild prevertebral osteophytosis. There are facet joint degenerative changes. No acute cervical spine fracture. Discs/Spinal canal/Neural foramina: Central canal stenosis greatest at C6-C7, [id number]. Soft tissues: Unremarkable. Lungs: Emphysema. Scarring at the lung apices. Pleural space: No visible pneumothorax. Vasculature: Vascular calcification. IMPRESSION: No acute cervical spine fracture. Electronically signed by: Navi Balderas On 06/11/2020 19:21:55 PM
--- NOTE | 2020-06-11 19:23 | REPVR ---
PROCEDURE INFORMATION: Exam: CT Head Without Contrast Exam date and time: 06/11/2020 7:07 PM Age: 60 years old Clinical indication: Injury or trauma; Fall; Initial encounter; Blunt trauma (contusions or hematomas); Additional info: Fall; Head injury TECHNIQUE: Imaging protocol: Computed tomography of the head without contrast. Radiation optimization: All CT scans at this facility use at least one of these dose optimization techniques: automated exposure control; mA and/or kV adjustment per patient size (includes targeted exams where dose is matched to clinical indication); or iterative reconstruction. COMPARISON: CT Head without contrast 09/20/2019 2:55 PM FINDINGS: Brain: Mild decreased attenuation of the supratentorial white matter is likely secondary to chronic microvascular ischemia. No acute intracranial hemorrhage. Ventricles: Ventricular and subarachnoid spaces are age appropriate. Bones/joints: Unremarkable. No acute fracture. Sinuses: Mild paranasal sinus disease. Mastoid air cells: Visualized mastoid air cells are well aerated. Vasculature: Intracranial vascular calcification. Soft tissues: Unremarkable. IMPRESSION: No acute intracranial abnormality. Electronically signed by: Navi Balderas On 06/11/2020 19:23:45 PM
--- NOTE | 2020-06-11 20:15 | REPVR ---
PROCEDURE INFORMATION: Exam: XR Chest, 1 View Exam date and time: 06/11/2020 7:55 PM Age: 60 years old Clinical indication: Pre-operative exam; Cardiovascular screening and respiratory screening exam; Additional info: FX femur TECHNIQUE: Imaging protocol: XR of the chest Views: 1 view. COMPARISON: CR Chest, 2 view PA, Lat 05/15/2020 5:15 PM FINDINGS: Tubes, catheters and devices: Stable metallic hardware overlying the neck. Lungs: Mild linear atelectasis or scarring at the left lung base. No consolidation. Pleural space: Unremarkable. No pleural effusion. No pneumothorax. Heart/Mediastinum: Stable cardiac silhouette. Vasculature: Aortic calcification. Bones/joints: Unremarkable. IMPRESSION: No acute process. Electronically signed by: Navi Balderas On 06/11/2020 20:15:48 PM
--- NOTE | 2020-06-11 20:18 | REPVR ---
PROCEDURE INFORMATION: Exam: XR Bilateral Hips with Pelvis when Performed Exam date and time: 06/11/2020 7:39 PM Age: 60 years old Clinical indication: Pain and injury or trauma; Fall; Initial encounter; Sprain or strain; Bilateral; Hip pain; Additional info: Bilateral S/P fall TECHNIQUE: Imaging protocol: XR bilateral hips with pelvis when performed. Views: 2 views. COMPARISON: CT ABD/PEL W/PO CONTRAST ONLY 09/20/2019 9:32 PM FINDINGS: Bones/joints: There are degenerative changes involving the bilateral hip joints. No definite acute fracture or dislocation. Soft tissues: Unremarkable. Organs: Contrast material within the urinary bladder. IMPRESSION: No acute osseous abnormality. Electronically signed by: Navi Balderas On 06/11/2020 20:18:01 PM
--- NOTE | 2020-06-11 20:20 | REPVR ---
PROCEDURE INFORMATION: Exam: XR Right Knee Exam date and time: 06/11/2020 7:39 PM Age: 60 years old Clinical indication: Pain and injury or trauma; Fall; Initial encounter; Sprain or strain; Patella or knee; Bilateral; Additional info: Bilateral S/P fall TECHNIQUE: Imaging protocol: XR Right knee. Views: 4 or more views. COMPARISON: CR Knee, Ap, Lat 07/13/2013 10:10 AM FINDINGS: Bones/joints: Normal. Soft tissues: Normal. IMPRESSION: No acute osseous abnormality. PROCEDURE INFORMATION: Exam: XR Left Knee Exam date and time: 06/11/2020 7:39 PM Age: 60 years old Clinical indication: Pain and injury or trauma; Fall; Initial encounter; Sprain or strain; Patella or knee; Bilateral; Additional info: Bilateral S/P fall TECHNIQUE: Imaging protocol: XR Left knee. Views: 4 or more views. COMPARISON: CR Knee, Ap, Lat 07/13/2013 10:10 AM FINDINGS: Bones/joints: There has been prior left knee arthroplasty. There is displaced fracture of the distal aspect of the femur extending to the femoral component. No definite hardware failure. Joint effusion. Soft tissues: Normal. IMPRESSION: Displaced fracture of the distal femur extending to the femoral component. Electronically signed by: Navi Balderas On 06/11/2020 20:20:13 PM
--- NOTE | 2020-06-11 20:25 | REPVR ---
PROCEDURE INFORMATION: Exam: XR Right Ankle Exam date and time: 06/11/2020 7:39 PM Age: 60 years old Clinical indication: Pain and injury or trauma; Fall; Initial encounter; Sprain or strain; Ankle; Bilateral; Additional info: Bilateral S/P fall TECHNIQUE: Imaging protocol: XR Right ankle. Views: 3 or more views. COMPARISON: No relevant prior studies available. FINDINGS: Bones/joints: Questionable nondisplaced fracture of the lateral malleolus. Soft tissues: Ankle soft tissue swelling laterally. IMPRESSION: Questionable nondisplaced fracture of the lateral malleolus. PROCEDURE INFORMATION: Exam: XR Left Ankle Exam date and time: 06/11/2020 7:39 PM Age: 60 years old Clinical indication: Pain and injury or trauma; Fall; Initial encounter; Sprain or strain; Ankle; Bilateral; Additional info: Bilateral S/P fall TECHNIQUE: Imaging protocol: XR Left ankle. Views: 3 or more views. COMPARISON: No relevant prior studies available. FINDINGS: Bones/joints: Displaced fracture of the medial malleolus. Minimally displaced fracture involving the distal diaphysis of the fibula. No dislocation. Medial ankle mortise widening. Soft tissues: Ankle soft tissue swelling. IMPRESSION: 1. Displaced fracture of the medial malleolus with mild medial ankle mortise widening. 2. Mildly displaced fracture involving the distal aspect of the fibula. Electronically signed by: Navi Balderas On 06/11/2020 20:25:28 PM
[2020-06-11 20:32] LABS: BASO % 0.2 % (0.0-1.0); EOS # 0.1 10^3/uL (0.0-0.5); EOS % 0.5 % (0.0-3.0); HEMATOCRIT 31.2 % (36.0-47.0); HEMOGLOBIN 8.9 g/dl (12.0-15.5); LYMPH # 1.8 10^3/uL (1.5-5.0); LYMPH % 16.1 % (24.0-44.0); MEAN CORPUSCULAR HEMOGLOBIN 24.2 pg (27.0-33.0); MEAN CORPUSCULAR HGB CONC 28.5 g/dl (32.0-36.5); MEAN CORPUSCULAR VOLUME 84.8 fl (80.0-96.0); MONO # 0.9 10^3/uL (0.0-0.8); MONO % 8.3 % (0.0-5.0); NEUTROPHILS # 8.1 10^3/uL (1.5-8.5); NEUTROPHILS % 73.4 % (36.0-66.0); PLATELET COUNT, AUTOMATED 313 10^3/uL (150-450); RED BLOOD COUNT 3.68 10^6/uL (4.00-5.40); WHITE BLOOD COUNT 11.1 10^3/uL (4.0-10.0)
[2020-06-11] MEDS ORDERED: IPRATROPIUM 0.5MG/ALBUTEROL 2.5MG INH SOL UD 3ML (DUONEB) NEB ONE (20:45)
[2020-06-11 21:02] LABS: BLOOD UREA NITROGEN 24 MG/DL (7-18); CALCIUM LEVEL 9.1 MG/DL (8.5-10.1); CARBON DIOXIDE LEVEL 44 MEQ/L (21-32); CHLORIDE LEVEL 91 MEQ/L (98-107); CK-MB VALUE MASS < 1.0 NG/ML (<3.6); CPK CREATINE PHOSPHOKINASE 51 U/L (26-192); CREATININE FOR GFR 0.94 MG/DL (0.55-1.30); GLOMERULAR FILTRATION RATE > 60.0 (>51); GLUCOSE, FASTING 127 MG/DL (70-100); MB/CK RELATIVE INDEX 1.96 (< OR =4); POTASSIUM SERUM 3.5 MEQ/L (3.5-5.1); SODIUM LEVEL 137 MEQ/L (136-145); TROPONIN I < 0.02 NG/ML (< 0.10)
[2020-06-11] MEDS ORDERED: MORPHINE 4 MG/ML 1ML VIAL/SYRINGE (J2270) IV ONE (22:15)
[2020-06-12] MEDS ORDERED: MORPHINE 4 MG/ML 1ML VIAL/SYRINGE (J2270) IV PRN (00:15)
[2020-06-12] MEDS ORDERED: MORPHINE 4 MG/ML 1ML VIAL/SYRINGE (J2270) IV ONE (00:15)
[2020-06-12 00:17] VITALS: BP 148/96
--- NOTE | 2020-07-08 09:22 | ECGEPIP ---
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
== END 2020-06-12 01:42 | disposition short-term general hospital (02) ==
LOC: M ED 18:34 → EDBD 18:34 → M ED 06-12 01:42
DX: S82.51XA Displaced fracture of medial malleolus of right tibia, initial encounter for closed fracture (principal); S82.62XA Displaced fracture of lateral malleolus of left fibula, initial encounter for closed fracture; S72.442A Displaced fracture of lower epiphysis (separation) of left femur, initial encounter for closed fracture; W01.10XA Fall on same level from slipping, tripping and stumbling with subsequent striking against unspecified object, initial encounter; Y92.009 Unspecified place in unspecified non-institutional (private) residence as the place of occurrence of the external cause; Y93.9 Activity, unspecified; Y99.9 Unspecified external cause status; E11.9 Type 2 diabetes mellitus without complications; Z79.01 Long term (current) use of anticoagulants; Z79.4 Long term (current) use of insulin; Z79.51 Long term (current) use of inhaled steroids; Z79.891 Long term (current) use of opiate analgesic; Z79.899 Other long term (current) drug therapy; Z96.652 Presence of left artificial knee joint
CPT/HCPCS: 36415; 70450; 71045; 72125; 73502; 73564; 73610; 80048; 82550; 82553; 84484; 85025; 93005; 96374; 96376; 99284; J2270